=== PATIENT | female | born 1960 | race Caucasian/White ===

== ENCOUNTER → 2017-01-15 | Outpatient (CLI) | payer MEDICARE, MEDICAID ==
[~2017-01-15] VITALS: Ht 162.6 cm; Wt 96.6 kg
[~2017-01-15] MED LIST: BARIATRIC MULTI PO; BRIN1TAB2 PO; CALC600T57 PO; FURO40TA2 PO; K-TA10TA2 PO; NS 1,000 ML IV SCH; PANT40TA2 PO; PERCOCET PO; PRIS100T PO; PROPOFOL 200 MG/20 ML VIAL As Ordered ONE; ROPI1TAB PO; ROSU10TA PO; TRAM50TA2 PO
--- NOTE | 2017-01-15 10:55 | ROOR ---
Patient Name: Susy Fernandes Procedure Date: 01/15/2017 10:37 AM Date of : 1960 Age: 56 Room: [facility] Gender: Female Note Status: Finalized Procedure: Colonoscopy to Anastomosis Indications: High risk colon cancer surveillance: Personal history of colon cancer Providers: Claudio Armendariz MD Referring MD: [facility] Requesting Provider: Medicines: Monitored Anesthesia Care Complications: No immediate complications. Procedure: Pre-Anesthesia Assessment: - The heart rate, respiratory rate, oxygen saturations, blood pressure, adequacy of pulmonary ventilation, and response to care were monitored throughout the procedure. The Colonoscope was introduced through the anus and advanced to the cecum, identified by appendiceal orifice and ileocecal valve. The colonoscopy was performed without difficulty. The patient tolerated the procedure well. The quality of the bowel preparation was excellent. Findings: The perianal and digital rectal examinations were normal. Non-bleeding internal hemorrhoids were found during retroflexion. The hemorrhoids were moderate and Grade II (internal hemorrhoids that prolapse but reduce spontaneously). There was evidence of a prior end-to-side colo-colonic anastomosis at the hepatic flexure. This was patent and was characterized by healthy appearing mucosa. The exam was otherwise without abnormality on direct and retroflexion views. Impression: - Non-bleeding internal hemorrhoids. - Patent end-to-side colo-colonic anastomosis, characterized by healthy appearing mucosa. - The examination was otherwise normal on direct and retroflexion views. - No specimens collected. - The examination was otherwise normal. Recommendation: - Patient has a contact number available for emergencies. The signs and symptoms of potential delayed complications were discussed with the patient. Return to normal activities tomorrow. Written discharge instructions were provided to the patient. - High fiber diet. - Discharge patient to home. - Continue present medications. - Repeat colonoscopy in 2 years for surveillance. - Return to referring physician. - The findings and recommendations were discussed with the patient's family. Claudio Armendariz MD Claudio Armendariz MD 01/15/2017 10:55:02 AM This report has been signed electronically. Number of Addenda: 0 Note Initiated On: 01/15/2017 10:37 AM Estimated Blood Loss: Estimated blood loss: none.
[2017-01-15 11:30] VITALS: BP 112/68
== END | disposition home or self-care (01) ==
LOC: M OPP 09:59
PROVIDERS: ATTEND Internal Medicine Gastroenterology
DX: Z08 Encounter for follow-up examination after completed treatment for malignant neoplasm (principal); K64.1 Second degree hemorrhoids; Z85.038 Personal history of other malignant neoplasm of large intestine; K62.5 Hemorrhage of anus and rectum; Z86.010 Personal history of colon polyps; Z98.0 Intestinal bypass and anastomosis status; E78.5 Hyperlipidemia, unspecified; I10 Essential (primary) hypertension; E07.9 Disorder of thyroid, unspecified; K82.9 Disease of gallbladder, unspecified; E66.9 Obesity, unspecified; R12 Heartburn; M19.90 Unspecified osteoarthritis, unspecified site; M54.5 Low back pain; F41.9 Anxiety disorder, unspecified; F32.9 Major depressive disorder, single episode, unspecified; D64.9 Anemia, unspecified; K57.30 Diverticulosis of large intestine without perforation or abscess without bleeding; K44.9 Diaphragmatic hernia without obstruction or gangrene; Z98.84 Bariatric surgery status; Z79.899 Other long term (current) drug therapy; Z80.0 Family history of malignant neoplasm of digestive organs

== ENCOUNTER → 2017-02-05 | Outpatient (CLI) | payer MEDICARE, MEDICAID ==
[~2017-02-05] MED LIST changes: +CRES10TA32 PO; -NS 1,000 ML IV SCH; -PROPOFOL 200 MG/20 ML VIAL As Ordered ONE; -ROSU10TA PO
[2017-02-05 10:34] LABS: BASO % 0.8 % (0.0-1.0); EOS # 0.1 K/mm3 (0.0-0.50); EOS % 1.4 % (0.0-3.0); LARGE UNSTAINED CELL # 0.1 K/mm3 (0.0-0.4); LARGE UNSTAINED CELL % 1.7 % (0.0-4.0); LYMPH # 2.1 K/mm3 (1.5-4.5); LYMPH % 30.7 % (24.0-44.0); MEAN CORPUSCULAR HEMOGLOBIN 26.9 pg (27.0-33.0); MEAN CORPUSCULAR HGB CONC 32.3 g/dl (32.0-36.5); MEAN CORPUSCULAR VOLUME 83.3 fl (80.0-96.0); MONO # 0.3 K/mm3 (0.0-0.8); MONO % 4.7 % (0.0-5.0); NEUTROPHILS # 4.1 K/mm3 (1.8-7.7); NEUTROPHILS % 60.7 % (36.0-66.0); PLATELET COUNT, AUTOMATED 261 k/mm3 (150-450); RED CELL DISTRIBUTION WIDTH 13.7 % (11.5-14.5); WHITE BLOOD COUNT 6.8 K/mm3 (4.0-10.0)
[2017-02-05 11:09] LABS: ALBUMIN/GLOBULIN RATIO 1.25 (1.00-1.93); ALKALINE PHOSPHATASE 144 U/L (45-117); ALT/SGPT 26 U/L (12-78); ANION GAP 7 MEQ/L (8-16); AST/SGOT 16 U/L (15-37); BILIRUBIN,TOTAL 0.4 MG/DL (0.2-1.0); BLOOD UREA NITROGEN 20 MG/DL (7-18); CALCIUM LEVEL 9.3 MG/DL (8.5-10.1); CARBON DIOXIDE LEVEL 29 MEQ/L (21-32); CHLORIDE LEVEL 106 MEQ/L (98-107); CREATININE FOR GFR 0.63 MG/DL (0.55-1.02); FERRITIN 19 NG/ML (8-252); GLOMERULAR FILTRATION RATE > 60.0 (>51); GLUCOSE, FASTING 112 MG/DL (70-105); POTASSIUM SERUM 3.8 MEQ/L (3.5-5.1); SODIUM LEVEL 142 MEQ/L (136-145); TOTAL PROTEIN 7.2 GM/DL (6.4-8.2)
[2017-02-05 11:14] LABS: VITAMIN B12 LEVEL 427 PG/ML
[2017-02-05 11:47] LABS: FOLATE 16.2 NG/ML
[2017-02-05 11:53] LABS: ERYTHROCYTE SEDIMENTATION RATE 12 mm/hr (0-30)
[2017-02-06 10:12] LABS: ALBUMIN 4.44 GM/DL (3.29-5.55); ALBUMIN % 61.7 % (55.8-66.1); GAMMA GLOBULIN % 12.6 % (11.1-18.8)
[2017-02-08 08:06] LABS: VITAMIN E LEVEL 10.7 mg/L (5.3-16.8)
== END ==
LOC: M LAB 10:00
PROVIDERS: ATTEND Psychiatry & Neurology Neurology
DX: G25.81 Restless legs syndrome (principal); G62.9 Polyneuropathy, unspecified; E07.9 Disorder of thyroid, unspecified; R73.01 Impaired fasting glucose; D64.9 Anemia, unspecified

== ENCOUNTER 2017-04-08 07:04 | Outpatient (RCR) | payer MEDICAID, MEDICARE | END 2017-04-09 | LOC: M PT 07:04 | PROVIDERS: ATTEND Psychiatry & Neurology Neurology | DX: Z51.89 Encounter for other specified aftercare (principal); M54.5 Low back pain | CPT/HCPCS: 97162; G8978; G8979 ==

== ENCOUNTER → 2017-04-10 | Outpatient (CLI) | payer MEDICARE ==
[2017-04-10 08:26] LABS: MEAN CORPUSCULAR HEMOGLOBIN 28.3 pg (27.0-33.0); MEAN CORPUSCULAR HGB CONC 33.3 g/dl (32.0-36.5); RED CELL DISTRIBUTION WIDTH 14.1 % (11.5-14.5); WHITE BLOOD COUNT 6.3 K/mm3 (4.0-10.0)
[2017-04-10 08:44] LABS: ALBUMIN/GLOBULIN RATIO 1.38 (1.00-1.93); ALKALINE PHOSPHATASE 161 U/L (45-117); ALT/SGPT 25 U/L (12-78); ANION GAP 8 MEQ/L (8-16); AST/SGOT 14 U/L (15-37); BILIRUBIN,TOTAL 0.5 MG/DL (0.2-1.0); BLOOD UREA NITROGEN 16 MG/DL (7-18); CALCIUM LEVEL 8.6 MG/DL (8.5-10.1); CARBON DIOXIDE LEVEL 28 MEQ/L (21-32); CHLORIDE LEVEL 107 MEQ/L (98-107); CHOLESTEROL LEVEL 181 MG/DL (<200); CREATININE FOR GFR 0.63 MG/DL (0.55-1.02); GLOMERULAR FILTRATION RATE > 60.0 (>51); GLUCOSE, FASTING 102 MG/DL (70-105); POTASSIUM SERUM 3.9 MEQ/L (3.5-5.1); SODIUM LEVEL 143 MEQ/L (136-145); TOTAL PROTEIN 6.9 GM/DL (6.4-8.2); TRIGLYCERIDES LEVEL 135 MG/DL (<150)
[2017-04-10 11:25] LABS: VITAMIN B12 LEVEL 737 PG/ML (247-911)
== END ==
LOC: M LAB 07:50
PROVIDERS: ATTEND Nurse Practitioner Family
DX: I10 Essential (primary) hypertension (principal); E78.00 Pure hypercholesterolemia, unspecified; E55.9 Vitamin D deficiency, unspecified; E53.8 Deficiency of other specified B group vitamins

== ENCOUNTER 2017-05-08 07:00 | Outpatient (RCR) | payer MEDICARE, MEDICAID | END 2017-05-09 | LOC: M PT 07:00 | PROVIDERS: ATTEND Psychiatry & Neurology Neurology | DX: Z51.89 Encounter for other specified aftercare (principal); M54.2 Cervicalgia; M25.552 Pain in left hip | CPT/HCPCS: 97110; 97140; G0283; G8978; G8979 ==

== ENCOUNTER 2017-05-27 07:45 | Outpatient (RCR) | payer MEDICARE, MEDICAID | END 2017-06-09 | LOC: M PT 07:45 | PROVIDERS: ATTEND Psychiatry & Neurology Neurology | DX: M54.5 Low back pain (principal); M25.552 Pain in left hip | CPT/HCPCS: 97110; 97140; G8979; G8980 ==

== ENCOUNTER → 2017-07-09 | Outpatient (CLI) | payer MEDICARE, MEDICAID ==
[2017-07-09 12:08] LABS: MEAN CORPUSCULAR HEMOGLOBIN 27.9 pg (27.0-33.0); MEAN CORPUSCULAR HGB CONC 32.9 g/dl (32.0-36.5); MEAN CORPUSCULAR VOLUME 84.9 fl (80.0-96.0); RED CELL DISTRIBUTION WIDTH 14.2 % (11.5-14.5); WHITE BLOOD COUNT 5.9 K/mm3 (4.0-10.0)
[2017-07-09 12:26] LABS: ALBUMIN 3.8 GM/DL (3.2-5.2); ALBUMIN/GLOBULIN RATIO 1.12 (1.00-1.93); ALKALINE PHOSPHATASE 146 U/L (45-117); ALT/SGPT 24 U/L (12-78); ANION GAP 9 MEQ/L (8-16); AST/SGOT 14 U/L (15-37); BILIRUBIN,TOTAL 0.4 MG/DL (0.2-1.0); BLOOD UREA NITROGEN 17 MG/DL (7-18); CALCIUM LEVEL 9.1 MG/DL (8.5-10.1); CARBON DIOXIDE LEVEL 28 MEQ/L (21-32); CHLORIDE LEVEL 110 MEQ/L (98-107); CHOLESTEROL LEVEL 289 MG/DL (<200); CREATININE FOR GFR 0.63 MG/DL (0.55-1.02); GLOMERULAR FILTRATION RATE > 60.0 (>51); GLUCOSE, FASTING 92 MG/DL (70-105); POTASSIUM SERUM 4.1 MEQ/L (3.5-5.1); SODIUM LEVEL 147 MEQ/L (136-145); TOTAL PROTEIN 7.2 GM/DL (6.4-8.2); TRIGLYCERIDES LEVEL 280 MG/DL (<150)
== END ==
LOC: M LAB 11:04
PROVIDERS: ATTEND Nurse Practitioner Family
DX: I10 Essential (primary) hypertension (principal)

== ENCOUNTER → 2017-10-08 | Outpatient (CLI) | payer MEDICARE, MEDICAID ==
[2017-10-08 08:28] LABS: MEAN CORPUSCULAR HEMOGLOBIN 27.4 pg (27.0-33.0); MEAN CORPUSCULAR HGB CONC 32.2 g/dl (32.0-36.5); MEAN CORPUSCULAR VOLUME 84.9 fl (80.0-96.0); PLATELET COUNT, AUTOMATED 271 10^3/uL (150-450); RED CELL DISTRIBUTION WIDTH 13.7 % (11.5-14.5); WHITE BLOOD COUNT 7.8 10^3/uL (4.0-10.0)
[2017-10-08 08:49] LABS: ALBUMIN 3.9 GM/DL (3.2-5.2); ALBUMIN/GLOBULIN RATIO 1.22 (1.00-1.93); ALKALINE PHOSPHATASE 141 U/L (45-117); ALT/SGPT 28 U/L (12-78); ANION GAP 7 MEQ/L (8-16); AST/SGOT 18 U/L (7-37); BILIRUBIN,TOTAL 0.4 MG/DL (0.2-1.0); BLOOD UREA NITROGEN 15 MG/DL (7-18); CALCIUM LEVEL 9.1 MG/DL (8.5-10.1); CARBON DIOXIDE LEVEL 30 MEQ/L (21-32); CHLORIDE LEVEL 108 MEQ/L (98-107); CHOLESTEROL LEVEL 179 MG/DL (<200); CREATININE FOR GFR 0.65 MG/DL (0.55-1.02); GLOMERULAR FILTRATION RATE > 60.0 (>51); GLUCOSE, FASTING 97 MG/DL (70-105); POTASSIUM SERUM 3.8 MEQ/L (3.5-5.1); SODIUM LEVEL 145 MEQ/L (136-145); TOTAL PROTEIN 7.1 GM/DL (6.4-8.2); TRIGLYCERIDES LEVEL 168 MG/DL (<150)
[2017-10-08 09:23] LABS: VITAMIN B12 LEVEL 626 PG/ML (247-911)
== END ==
LOC: M LAB 07:52
PROVIDERS: ATTEND Nurse Practitioner Family
DX: I10 Essential (primary) hypertension (principal); E78.5 Hyperlipidemia, unspecified; E53.8 Deficiency of other specified B group vitamins

== ENCOUNTER 2017-11-18 10:34 | Emergency (ER) | payer MEDICARE, MEDICAID | END 2017-11-18 12:15 | disposition home or self-care (01) | LOC: M ED 10:34 | DX: J32.9 Chronic sinusitis, unspecified (principal); K21.9 Gastro-esophageal reflux disease without esophagitis; E78.00 Pure hypercholesterolemia, unspecified; F41.9 Anxiety disorder, unspecified; F32.9 Major depressive disorder, single episode, unspecified; M19.90 Unspecified osteoarthritis, unspecified site; Z79.899 Other long term (current) drug therapy | CPT/HCPCS: 99282 ==

== ENCOUNTER → 2018-01-28 | Outpatient (CLI) | payer MEDICARE, MEDICAID ==
[2018-01-28 14:18] LABS: HEMOGLOBIN 11.8 g/dl (12.0-16.0); MEAN CORPUSCULAR HEMOGLOBIN 26.8 pg (27.0-33.0); MEAN CORPUSCULAR HGB CONC 31.9 g/dl (32.0-36.5); MEAN CORPUSCULAR VOLUME 83.9 fl (80.0-96.0); PLATELET COUNT, AUTOMATED 255 10^3/uL (150-450); RED BLOOD COUNT 4.41 10^6/uL (4.00-5.40); RED CELL DISTRIBUTION WIDTH 14.3 % (11.5-14.5); WHITE BLOOD COUNT 6.2 10^3/uL (4.0-10.0)
[2018-01-28 14:44] LABS: TOTAL 25(OH) VITAMIN D 22.5 NG/ML (30.0-100.0)
[2018-01-28 14:45] LABS: VITAMIN B12 LEVEL 1284 PG/ML (247-911)
[2018-01-28 14:55] LABS: ALBUMIN 3.9 GM/DL (3.2-5.2); ALBUMIN/GLOBULIN RATIO 1.22 (1.00-1.93); ALKALINE PHOSPHATASE 153 U/L (45-117); ALT/SGPT 27 U/L (12-78); ANION GAP 6 MEQ/L (8-16); AST/SGOT 16 U/L (7-37); BILIRUBIN,TOTAL 0.6 MG/DL (0.2-1.0); BLOOD UREA NITROGEN 14 MG/DL (7-18); CARBON DIOXIDE LEVEL 29 MEQ/L (21-32); CHLORIDE LEVEL 109 MEQ/L (98-107); CHOLESTEROL LEVEL 196 MG/DL (<200); CHOLESTEROL RISK RATIO 3.322 (<5); CPK CREATINE PHOSPHOKINASE 112 U/L (26-192); CREATININE FOR GFR 0.61 MG/DL (0.55-1.30); FREE T4 0.83 NG/DL (0.76-1.46); GLOMERULAR FILTRATION RATE > 60.0 (>51); GLUCOSE, FASTING 97 MG/DL (70-100); HDL CHOLESTEROL 59 MG/DL (>40); NON-HDL-C 137 MG/DL; SODIUM LEVEL 144 MEQ/L (136-145); THYROID STIMULATING HORMONE 0.789 uIU/ML (0.358-3.740); TOTAL PROTEIN 7.1 GM/DL (6.4-8.2); TRIGLYCERIDES LEVEL 260 MG/DL (<150)
== END ==
LOC: M LAB 13:38
DX: I10 Essential (primary) hypertension (principal); E78.00 Pure hypercholesterolemia, unspecified; R53.83 Other fatigue
CPT/HCPCS: 82550

== ENCOUNTER → 2018-03-15 | Outpatient (REF) | payer MEDICARE, MEDICAID | LOC: M LAB REF 03-16 17:11 | DX: Z12.10 Encounter for screening for malignant neoplasm of intestinal tract, unspecified (principal) | CPT/HCPCS: 82270 ==

== ENCOUNTER → 2018-04-02 | Outpatient (CLI) | payer MEDICARE, MEDICAID | LOC: M PAIN 15:00 | DX: M54.5 Low back pain (principal); G89.29 Other chronic pain; I10 Essential (primary) hypertension; G25.81 Restless legs syndrome; F32.9 Major depressive disorder, single episode, unspecified; F41.9 Anxiety disorder, unspecified; G47.33 Obstructive sleep apnea (adult) (pediatric); Z79.899 Other long term (current) drug therapy; E66.01 Morbid (severe) obesity due to excess calories; Z68.38 Body mass index [BMI] 38.0-38.9, adult; Z98.84 Bariatric surgery status | CPT/HCPCS: G0463 ==

== ENCOUNTER → 2018-04-15 | Outpatient (CLI) | payer MEDICARE, MEDICAID ==
[2018-04-15 13:00] LABS: HEMATOCRIT 36.1 % (36.0-47.0); HEMOGLOBIN 11.3 g/dl (12.0-15.5); MEAN CORPUSCULAR HEMOGLOBIN 26.5 pg (27.0-33.0); MEAN CORPUSCULAR HGB CONC 31.3 g/dl (32.0-36.5); MEAN CORPUSCULAR VOLUME 84.7 fl (80.0-96.0); PLATELET COUNT, AUTOMATED 256 10^3/uL (150-450); RED BLOOD COUNT 4.26 10^6/uL (4.00-5.40); RED CELL DISTRIBUTION WIDTH 14.3 % (11.5-14.5); WHITE BLOOD COUNT 5.7 10^3/uL (4.0-10.0)
[2018-04-15 13:45] LABS: TOTAL 25(OH) VITAMIN D 25.9 NG/ML (30.0-100.0)
[2018-04-15 13:48] LABS: ALBUMIN 3.9 GM/DL (3.2-5.2); ALBUMIN/GLOBULIN RATIO 1.22 (1.00-1.93); ALKALINE PHOSPHATASE 128 U/L (45-117); ALT/SGPT 26 U/L (12-78); ANION GAP 7 MEQ/L (8-16); AST/SGOT 19 U/L (7-37); BILIRUBIN,TOTAL 0.4 MG/DL (0.2-1.0); BLOOD UREA NITROGEN 16 MG/DL (7-18); CALCIUM LEVEL 8.9 MG/DL (8.5-10.1); CARBON DIOXIDE LEVEL 27 MEQ/L (21-32); CHLORIDE LEVEL 109 MEQ/L (98-107); CHOLESTEROL LEVEL 163 MG/DL (<200); CHOLESTEROL RISK RATIO 2.469 (<5); CPK CREATINE PHOSPHOKINASE 120 U/L (26-192); CREATININE FOR GFR 0.68 MG/DL (0.55-1.30); FREE T4 0.86 NG/DL (0.76-1.46); GLOMERULAR FILTRATION RATE > 60.0 (>51); GLUCOSE, FASTING 90 MG/DL (70-100); HDL CHOLESTEROL 66 MG/DL (>40); NON-HDL-C 97 MG/DL; SODIUM LEVEL 143 MEQ/L (136-145); TOTAL PROTEIN 7.1 GM/DL (6.4-8.2); TRIGLYCERIDES LEVEL 145 MG/DL (<150)
== END ==
LOC: M LAB 11:49
DX: E78.00 Pure hypercholesterolemia, unspecified (principal); I10 Essential (primary) hypertension; E55.9 Vitamin D deficiency, unspecified; E03.9 Hypothyroidism, unspecified; R11.10 Vomiting, unspecified; Z68.38 Body mass index [BMI] 38.0-38.9, adult; R10.13 Epigastric pain; Z13.29 Encounter for screening for other suspected endocrine disorder; Z13.21 Encounter for screening for nutritional disorder; Z13.228 Encounter for screening for other metabolic disorders; Z13.0 Encounter for screening for diseases of the blood and blood-forming organs and certain disorders involving the immune mechanism
CPT/HCPCS: 82550

== ENCOUNTER → 2018-04-15 | Outpatient (CLI) | payer MEDICARE, MEDICAID ==
[2018-04-15 13:37] LABS: IRON (FE) 59 UG/DL (50-170)
[2018-04-15 13:45] LABS: VITAMIN B12 LEVEL 487 PG/ML (247-911)
== END ==
LOC: M LAB 11:56
DX: R11.10 Vomiting, unspecified (principal); Z68.38 Body mass index [BMI] 38.0-38.9, adult; R10.13 Epigastric pain; Z13.29 Encounter for screening for other suspected endocrine disorder; Z13.21 Encounter for screening for nutritional disorder; Z13.228 Encounter for screening for other metabolic disorders; Z13.0 Encounter for screening for diseases of the blood and blood-forming organs and certain disorders involving the immune mechanism

== ENCOUNTER → 2018-05-01 | Outpatient (CLI) | payer MEDICARE, MEDICAID | LOC: M PLARAD 14:41 | DX: M51.36 Other intervertebral disc degeneration, lumbar region (principal) | CPT/HCPCS: 72148 ==

== ENCOUNTER → 2018-05-18 | Outpatient (CLI) | payer MEDICARE, MEDICAID | LOC: M PAIN 14:30 | DX: M51.16 Intervertebral disc disorders with radiculopathy, lumbar region (principal); M51.17 Intervertebral disc disorders with radiculopathy, lumbosacral region; G89.29 Other chronic pain; I10 Essential (primary) hypertension; G25.81 Restless legs syndrome; F32.9 Major depressive disorder, single episode, unspecified; F41.9 Anxiety disorder, unspecified; G47.33 Obstructive sleep apnea (adult) (pediatric); Z79.899 Other long term (current) drug therapy; Z98.84 Bariatric surgery status | CPT/HCPCS: G0463 ==

== ENCOUNTER → 2018-06-04 | Outpatient (CLI) | payer MEDICARE, MEDICAID ==
[~2018-06-04] MED LIST changes: -BARIATRIC MULTI PO; -BRIN1TAB2 PO; -CALC600T57 PO; -CRES10TA32 PO; -FURO40TA2 PO; +ISOVUE-M 300 61% 15ML VIAL (Q9967) As Ordered; -K-TA10TA2 PO; +LIDOCAINE 1% SDV INJ 30 ML VIAL As Ordered; -PANT40TA2 PO; -PERCOCET PO; -PRIS100T PO; -ROPI1TAB PO; -TRAM50TA2 PO; +diazePAM 5 MG TAB As Ordered; +methylPREDNISolone SUSP 40 MG/ML (DEPO-medrol) VIAL (J1030) As Ordered; +oxyCODONE 5MG TAB As Ordered
== END ==
LOC: M PAIN 08:30
DX: G89.29 Other chronic pain (principal); M51.16 Intervertebral disc disorders with radiculopathy, lumbar region; I10 Essential (primary) hypertension; G25.81 Restless legs syndrome; F32.9 Major depressive disorder, single episode, unspecified; F41.9 Anxiety disorder, unspecified; G47.33 Obstructive sleep apnea (adult) (pediatric); Z79.899 Other long term (current) drug therapy; Z98.84 Bariatric surgery status
CPT/HCPCS: J1030

== ENCOUNTER → 2018-07-10 | Outpatient (CLI) | payer MEDICARE, MEDICAID | LOC: M PAIN 10:15 | DX: M51.16 Intervertebral disc disorders with radiculopathy, lumbar region (principal); M51.17 Intervertebral disc disorders with radiculopathy, lumbosacral region; I10 Essential (primary) hypertension; F32.9 Major depressive disorder, single episode, unspecified; F41.9 Anxiety disorder, unspecified; G47.33 Obstructive sleep apnea (adult) (pediatric); G25.81 Restless legs syndrome; Z79.891 Long term (current) use of opiate analgesic; Z79.899 Other long term (current) drug therapy; Z98.84 Bariatric surgery status | CPT/HCPCS: G0463 ==

== ENCOUNTER → 2018-07-27 | Outpatient (CLI) | payer MEDICARE, MEDICAID ==
[~2018-07-27] MED LIST changes: +BUPIVACAINE HCL 0.25% 30 ML VIAL As Ordered; +TRIAMCINOLONE ACETONIDE SUSP 40 MG/ML VIAL (J3301) As Ordered; -methylPREDNISolone SUSP 40 MG/ML (DEPO-medrol) VIAL (J1030) As Ordered
== END ==
LOC: M PAIN 10:45
DX: G89.29 Other chronic pain (principal); M47.816 Spondylosis without myelopathy or radiculopathy, lumbar region; M47.817 Spondylosis without myelopathy or radiculopathy, lumbosacral region; I10 Essential (primary) hypertension; F32.9 Major depressive disorder, single episode, unspecified; F41.9 Anxiety disorder, unspecified; G47.33 Obstructive sleep apnea (adult) (pediatric); G25.81 Restless legs syndrome; Z79.891 Long term (current) use of opiate analgesic; Z79.899 Other long term (current) drug therapy; Z98.84 Bariatric surgery status
CPT/HCPCS: J3301

== ENCOUNTER → 2018-09-02 | Outpatient (CLI) | payer MEDICARE, MEDICAID ==
[2018-09-02 14:59] LABS: HEMATOCRIT 36.8 % (36.0-47.0); HEMOGLOBIN 11.5 g/dl (12.0-15.5); MEAN CORPUSCULAR HEMOGLOBIN 26.8 pg (27.0-33.0); MEAN CORPUSCULAR HGB CONC 31.3 g/dl (32.0-36.5); MEAN CORPUSCULAR VOLUME 85.8 fl (80.0-96.0); PLATELET COUNT, AUTOMATED 275 10^3/uL (150-450); RED BLOOD COUNT 4.29 10^6/uL (4.00-5.40); RED CELL DISTRIBUTION WIDTH 14.8 % (11.5-14.5); WHITE BLOOD COUNT 6.6 10^3/uL (4.0-10.0)
[2018-09-02 15:18] LABS: ALBUMIN 3.9 GM/DL (3.2-5.2); ALBUMIN/GLOBULIN RATIO 1.44 (1.00-1.93); ALKALINE PHOSPHATASE 108 U/L (45-117); ALT/SGPT 23 U/L (12-78); ANION GAP 4 MEQ/L (8-16); AST/SGOT 17 U/L (7-37); BILIRUBIN,TOTAL 0.5 MG/DL (0.2-1.0); BLOOD UREA NITROGEN 19 MG/DL (7-18); CALCIUM LEVEL 9.3 MG/DL (8.5-10.1); CARBON DIOXIDE LEVEL 30 MEQ/L (21-32); CHLORIDE LEVEL 111 MEQ/L (98-107); CHOLESTEROL LEVEL 217 MG/DL (<200); CHOLESTEROL RISK RATIO 2.646 (<5); CPK CREATINE PHOSPHOKINASE 115 U/L (26-192); CREATININE FOR GFR 0.62 MG/DL (0.55-1.30); GLOMERULAR FILTRATION RATE > 60.0 (>51); GLUCOSE, FASTING 94 MG/DL (70-100); HDL CHOLESTEROL 82 MG/DL (>40); LDL CHOLESTEROL 110 MG/DL (<100); NON-HDL-C 135 MG/DL; POTASSIUM SERUM 4.4 MEQ/L (3.5-5.1); SODIUM LEVEL 145 MEQ/L (136-145); TOTAL PROTEIN 6.6 GM/DL (6.4-8.2); TRIGLYCERIDES LEVEL 124 MG/DL (<150)
[2018-09-02 15:41] LABS: TOTAL 25(OH) VITAMIN D 38.7 NG/ML (30.0-100.0)
== END ==
LOC: M LAB 14:04
DX: E78.00 Pure hypercholesterolemia, unspecified (principal); I10 Essential (primary) hypertension; E55.9 Vitamin D deficiency, unspecified; D51.0 Vitamin B12 deficiency anemia due to intrinsic factor deficiency; Z79.899 Other long term (current) drug therapy
CPT/HCPCS: 82550

== ENCOUNTER → 2018-09-18 | Outpatient (CLI) | payer MEDICARE, MEDICAID ==
[2018-09-22 09:58] LABS: ALPHA-1-GLOBULIN % 3.6 % (2.9-4.9); ALPHA-1-GLOBULINS 0.25 GM/DL (0.17-0.41); ALPHA-2-GLOBULINS 0.78 GM/DL (0.42-0.99); ALPHA-2-GLOBULINS % 11.2 % (7.1-11.8); BETA-1-GLOBULINS % 7.1 % (4.7-7.2); BETA-2-GLOBULINS % 5.7 % (3.2-6.5); GAMMA GLOBULIN % 12.4 % (11.1-18.8); GAMMA GLOBULINS 0.87 GM/DL (0.65-1.58)
== END ==
LOC: M LAB 11:19
DX: D64.9 Anemia, unspecified (principal); R53.83 Other fatigue; F41.8 Other specified anxiety disorders
CPT/HCPCS: 84165

== ENCOUNTER 2018-09-30 15:22 | Emergency (ER) | payer OTHER, MEDICARE, MEDICAID ==
[2018-09-30] MEDS: IBUPROFEN 400 MG TAB PO (16:16)
[2018-09-30] MEDS: NORCO, ANEXSIA 5/325MG TABLET (HYDROcodone/ACETAMINOPHEN) PO (16:20)
[2018-09-30 16:24] LABS: HEMATOCRIT 36.5 % (36.0-47.0); HEMOGLOBIN 11.4 g/dl (12.0-15.5); MEAN CORPUSCULAR HEMOGLOBIN 26.4 pg (27.0-33.0); MEAN CORPUSCULAR HGB CONC 31.2 g/dl (32.0-36.5); MEAN CORPUSCULAR VOLUME 84.5 fl (80.0-96.0); PLATELET COUNT, AUTOMATED 287 10^3/uL (150-450); RED BLOOD COUNT 4.32 10^6/uL (4.00-5.40); WHITE BLOOD COUNT 8.9 10^3/uL (4.0-10.0)
[2018-09-30 16:33] LABS: INR 0.92; PROTHROMBIN TIME 12.5 SECONDS (12.1-14.4)
== END 2018-09-30 17:06 | disposition home or self-care (01) ==
LOC: M ED 15:22
DX: S30.0XXA Contusion of lower back and pelvis, initial encounter (principal); W01.0XXA Fall on same level from slipping, tripping and stumbling without subsequent striking against object, initial encounter; Y92.9 Unspecified place or not applicable; Y93.9 Activity, unspecified; Y99.0 Civilian activity done for income or pay; K64.9 Unspecified hemorrhoids; Z98.84 Bariatric surgery status; Z79.899 Other long term (current) drug therapy
CPT/HCPCS: 72170

== ENCOUNTER → 2018-10-15 | Outpatient (CLI) | payer MEDICARE, MEDICAID | LOC: M PAIN 11:15 | DX: M51.16 Intervertebral disc disorders with radiculopathy, lumbar region (principal); I10 Essential (primary) hypertension; G25.81 Restless legs syndrome; F32.9 Major depressive disorder, single episode, unspecified; F41.9 Anxiety disorder, unspecified; G47.33 Obstructive sleep apnea (adult) (pediatric); E66.01 Morbid (severe) obesity due to excess calories; Z68.39 Body mass index [BMI] 39.0-39.9, adult; Z79.899 Other long term (current) drug therapy; Z98.84 Bariatric surgery status | CPT/HCPCS: G0463 ==

== ENCOUNTER 2018-10-28 10:46 | Day surgery (SDC) | payer MEDICARE, MEDICAID ==
[~2018-10-28] VITALS: Ht 162.6 cm; Wt 101.8 kg
[~2018-10-28 10:46] MED LIST changes: +AUGM875T28 PO; +BARIATRIC MULTI PO; +BRIN10TA4 PO; -BUPIVACAINE HCL 0.25% 30 ML VIAL As Ordered; +BUSP10TA PO; +BUSP5TA PO; +CALC600T57 PO; +CELE20TA PO; +CRES10TA32 PO; +FURO40TA2 PO; +GABA-1171 PO; +GABA-843 PO; +IBUP-1022 PO; +IBUP1TAB7 PO; -ISOVUE-M 300 61% 15ML VIAL (Q9967) As Ordered; +K-TA10TA2 PO; -LIDOCAINE 1% SDV INJ 30 ML VIAL As Ordered; +LIDOCAINE 2% INJ 100 MG/5 ML SDV (FOR ANES.) As Ordered ONE; +PANT40TA3 PO; +PERCOCET PO; +PRIS100T PO; +PROC2.5C TOP; +PROPOFOL 200 MG/20 ML VIAL As Ordered ONE; +ROPI1TAB PO; +TRAM50TA2 PO; -TRIAMCINOLONE ACETONIDE SUSP 40 MG/ML VIAL (J3301) As Ordered; +VITA200016 PO; -diazePAM 5 MG TAB As Ordered; -oxyCODONE 5MG TAB As Ordered
[2018-10-28] MEDS ORDERED: NS 1,000 ML IV ONE (11:00)
[2018-10-28] MEDS ORDERED: PROPOFOL 200 MG/20 ML VIAL As Ordered ONE (12:18)
--- NOTE | 2018-10-28 12:27 | ROOR ---
Patient Name: Susy Fernandes Procedure Date: 10/28/2018 12:03 PM Date of : 1960 Age: 58 Room: [facility] Gender: Female Note Status: Finalized Procedure: Colonoscopy to Anastomosis Indications: High risk colon cancer surveillance: Personal history of colon cancer, Last colonoscopy: 2016 Providers: Claudio Armendariz MD Referring MD: KAITLIN ATKINS NP Requesting Provider: Medicines: Monitored Anesthesia Care Complications: No immediate complications. Procedure: Pre-Anesthesia Assessment: - The heart rate, respiratory rate, oxygen saturations, blood pressure, adequacy of pulmonary ventilation, and response to care were monitored throughout the procedure. The Colonoscope was introduced through the anus and advanced to the ileocolonic anastomosis. The colonoscopy was performed without difficulty. The patient tolerated the procedure well. The quality of the bowel preparation was excellent. Findings: The perianal and digital rectal examinations were normal. Non-bleeding internal hemorrhoids were found during retroflexion. The hemorrhoids were small and Grade I (internal hemorrhoids that do not prolapse). Multiple small and large-mouthed diverticula were found in the recto-sigmoid colon, sigmoid colon and descending colon. There was evidence of a prior end-to-side ileo-colonic anastomosis at the hepatic flexure. This was patent and was characterized by healthy appearing mucosa. The anastomosis was traversed. The exam was otherwise without abnormality. Impression: - Non-bleeding internal hemorrhoids. - Diverticulosis in the recto-sigmoid colon, in the sigmoid colon and in the descending colon. - Patent end-to-side ileo-colonic anastomosis, characterized by healthy appearing mucosa. - The examination was otherwise normal. - No specimens collected. - The examination was otherwise normal. Recommendation: - Discharge patient to home. - Resume previous diet. - Continue present medications. - Repeat colonoscopy in 2 years for surveillance. - Return to referring physician. - The findings and recommendations were discussed with the patient's family. Claudio Armendariz MD Claudio Armendariz MD 10/28/2018 12:27:19 PM This report has been signed electronically. Number of Addenda: 0 Note Initiated On: 10/28/2018 12:03 PM Estimated Blood Loss: Estimated blood loss: none.
[2018-10-28 12:55] VITALS: BP 150/80
== END 2018-10-28 13:13 | disposition home or self-care (01) ==
LOC: M OPP 10:46
PROVIDERS: ATTEND Internal Medicine Gastroenterology
DX: Z08 Encounter for follow-up examination after completed treatment for malignant neoplasm (principal); Z85.038 Personal history of other malignant neoplasm of large intestine; Z86.010 Personal history of colon polyps; K64.0 First degree hemorrhoids; K57.90 Diverticulosis of intestine, part unspecified, without perforation or abscess without bleeding; Z98.0 Intestinal bypass and anastomosis status; E78.5 Hyperlipidemia, unspecified; E03.9 Hypothyroidism, unspecified; K21.9 Gastro-esophageal reflux disease without esophagitis; R12 Heartburn; M19.90 Unspecified osteoarthritis, unspecified site; M54.5 Low back pain; F41.9 Anxiety disorder, unspecified; F32.9 Major depressive disorder, single episode, unspecified; K62.5 Hemorrhage of anus and rectum; G47.8 Other sleep disorders; R06.83 Snoring; G47.30 Sleep apnea, unspecified; E66.9 Obesity, unspecified; Z98.84 Bariatric surgery status; Z79.899 Other long term (current) drug therapy; Z80.0 Family history of malignant neoplasm of digestive organs

== ENCOUNTER → 2018-12-02 | Outpatient (CLI) | payer MEDICARE, MEDICAID ==
[~2018-12-02] MED LIST changes: -LIDOCAINE 2% INJ 100 MG/5 ML SDV (FOR ANES.) As Ordered ONE; -PROPOFOL 200 MG/20 ML VIAL As Ordered ONE
[2018-12-02 09:01] LABS: HEMATOCRIT 37.8 % (36.0-47.0); HEMOGLOBIN 11.8 g/dl (12.0-15.5); MEAN CORPUSCULAR HEMOGLOBIN 26.9 pg (27.0-33.0); MEAN CORPUSCULAR HGB CONC 31.2 g/dl (32.0-36.5); MEAN CORPUSCULAR VOLUME 86.3 fl (80.0-96.0); PLATELET COUNT, AUTOMATED 234 10^3/uL (150-450); RED BLOOD COUNT 4.38 10^6/uL (4.00-5.40); WHITE BLOOD COUNT 7.1 10^3/uL (4.0-10.0)
[2018-12-02 09:53] LABS: ALT/SGPT 36 U/L (12-78); BILIRUBIN,TOTAL 0.4 MG/DL (0.2-1.0); BLOOD UREA NITROGEN 15 MG/DL (7-18); CALCIUM LEVEL 8.9 MG/DL (8.5-10.1); CARBON DIOXIDE LEVEL 27 MEQ/L (21-32); CHLORIDE LEVEL 110 MEQ/L (98-107); CHOLESTEROL LEVEL 193 MG/DL (<200); CPK CREATINE PHOSPHOKINASE 81 U/L (26-192); CREATININE FOR GFR 0.65 MG/DL (0.55-1.30); FREE T4 0.85 NG/DL (0.76-1.46); GLOMERULAR FILTRATION RATE > 60.0 (>51); GLUCOSE, FASTING 92 MG/DL (70-100); HDL CHOLESTEROL 72 MG/DL (>40); LDL CHOLESTEROL 80 MG/DL (<100); NON-HDL-C 121 MG/DL; POTASSIUM SERUM 4.1 MEQ/L (3.5-5.1); SODIUM LEVEL 143 MEQ/L (136-145); TOTAL PROTEIN 6.8 GM/DL (6.4-8.2); TRIGLYCERIDES LEVEL 207 MG/DL (<150)
== END ==
LOC: M LAB 08:21
PROVIDERS: ATTEND Nurse Practitioner Family
DX: E55.9 Vitamin D deficiency, unspecified (principal); I10 Essential (primary) hypertension; E78.5 Hyperlipidemia, unspecified; E03.9 Hypothyroidism, unspecified; Z79.899 Other long term (current) drug therapy

== ENCOUNTER → 2019-01-04 | Outpatient (CLI) | payer MEDICARE, MEDICAID ==
--- NOTE | 2019-01-18 00:33 | ECWPNPC ---
PATIENT NAME: CHRISTAL HARRIS : 1960 GENDER: FEMALE VISIT DATE: 01/04/2019 DISCHARGE DATE: 01/04/19 1237 VISIT LOCKED DATE TIME: PHYSICIAN: ANDREIA WALDROP RESOURCE: ANDREIA WALDROP REASON FOR APPOINTMENT 1. LOW BACK LEG/DISCUSS PROCEDURE HISTORY OF PRESENT ILLNESS HISTORY OF PRESENT ILLNESS: HERE FOR F/U OF CHRONIC LOW BACK PAIN.RATING PAIN VAS 6/10.DESCRIBES PAIN CONTINUOUS,BURNING AND STABBING.SHE IS LEARY ABOUT MOVING FORWARD WITH RADIOFREQUENCY. PAIN THE PATIENT DESCRIBES THE PAIN... FALL RISK SCREENING: SCREENING : NO FALLS IN THE PAST YEAR. CURRENT MEDICATIONS TAKING CRESTOR 10 MG TABLET 1 TABLET ORALLY ONCE A DAY TAKING PANTOPRAZOLE SODIUM 40 MG TABLET DELAYED RELEASE 1 TABLET ORALLY ONCE A DAY TAKING FUROSEMIDE 40 MG TABLET 1 TABLET ORALLY ONCE A DAY TAKING ROPINIROLE HCL 1 MG TABLET 1 1/2 TABS ORALLY BID TAKING IBUPROFEN 800 MG TABLET 1 TABLET WITH FOOD OR MILK NEEDED ORALLY BID PRN TAKING BUSPIRONE HCL 5 MG TABLET 1 TABLET ORALLY THREE TIMES A DAY TAKING GABAPENTIN 100 MG CAPSULE 1 CAPSULE ORALLY BID TAKING GABAPENTIN 300 MG TABLET 1 CAPSULE ORALLY FOR PAIN THREE TIMES A DAY TAKING VIIBRYD 40 MG TABLET 1 CAP ORALLY DAILY NOT-TAKING MULTIVITAMINS CAPSULE 2 GUMMIES ORALLY DAILY NOT-TAKING VITAMIN D (ERGOCALCIFEROL) 59789 UNIT CAPSULE 1 CAPSULE ORALLY NOT-TAKING TRAMADOL HCL 50 MG TABLET 1 TABLET ORALLY BEFORE BEDTIME PRN NOT-TAKING FENOFIBRATE MICRONIZED 200 MG CAPSULE 1 CAPSULE WITH A MEAL ORALLY ONCE A DAY DISCONTINUED CELEXA 20 MG TABLET 1 5 TABLET ORALLY ONCE A DAY MEDICATION LIST REVIEWED AND RECONCILED WITH THE PATIENT PAST MEDICAL HISTORY HTN ANEMIA OBESITY S/P GASTRIC BYPASS HISTORY OF FLUID RETENTION BLADDER MESH DEGENERATIVE DISC DISEASE RESTLESS LEG SYNDROME DEPRESSION ANXIETY LOW BACK AND LEFT HIP PAIN RADIATING DOWN LEFT LEG TO FOOT KING CYST BILATERAL LAURITA BILATERAL CARPAL TUNNEL BILATERAL LEG WEAKNESS AND PARESTHESIAS AROUND THE KNEE ALLERGIES N.K.D.A. SURGICAL HISTORY GASTRIC BYPASS 04/27/2008 BREAST REDUCTION 07/05/15 ROTATOR CUFF LEFT 2014 BLADDER REPAIR 1991,05/2003 HEMMORIOD REMOVAL 2015 HYSTERECTOMY 02/1995 GALLBLADDER REMOVED 02/1995 TONSILS REMOVED 1981 JACKELIN REMOVED FROM LEFT SIDE OF FACE 1970 COLON RESECTION FOR COLON CA 2016 FAMILY HISTORY FATHER: , DEPRESSION ,CHF, DIAGNOSED WITH DIABETES, HYPERTENSION, CANCER, OTHER MOTHER: , RETUM CANCER, DIAGNOSED WITH CANCER SIBLINGS: ALIVE, HYPERLIPIDEMIA,HTN,ASTHMA,DEPRESSION 2 SISTER(S) . 2DAUGHTER(S) - HEALTHY. DAD-SKIN CA, HIGH CHOLESTEROL, ? ASTHMAMOM-RECTAL CASISTER-ASHTMA, DISABLED DUE TO SPINAL CORD INJURY. SOCIAL HISTORY GENERAL: TOBACCO USE ARE YOU A:NONSMOKER ALCOHOL SCREENING DID YOU HAVE A DRINK CONTAINING ALCOHOL IN THE PAST YEAR?NO POINTS0 INTERPRETATIONNEGATIVE RECREATIONAL DRUG USE DRUG USE?NO CAFFEINE CAFFEINE USE?YES 4 CUPS OF COFFEE A DAY SEXUAL HX HAD SEX IN THE LAST 12 MONTHS (VAGINAL, ORAL, OR ANAL)?NO HAVE YOU EVER HAD AN STD?NO MORMON [id number] PENTECOSTAL LANGUAGE DANISH. EDUCATION LEVEL OF EDUCATION:FINISHED [employer] DEGREE LEARNING BARRIERS / SPECIAL NEEDS BARRIERS TO LEARNING?NO HEARING IMPAIRED?NO VISION IMPAIRED?YES :CORRECTIVE LENSES READING GLASSES COGNITIVELY IMPAIRED?NO READINESS TO LEARN?YES LEARNING PREFERENCES?YES :DEMONSTRATION/VERBAL INSTRUCTION LEARNING CAPABILITIES PRESENT?YES EMOTIONAL BARRIERS?NO SPECIAL DEVICES?NO INDUSTRIAL MACHINE OPERATOR NEEDED?NO DOMESTIC VIOLENCE NONE. DIET: REGULAR. EXERCISE: WALKS. MARITAL STATUS: .. OTHERS AT HOME: BOYFRIEND. NEW PATIENT PAIN DIARY PATIENT DESCRIBES PAIN :BURNING, HAVE IT ALL THE TIME FROM 0-10, WHAT LEVEL IS YOUR PAIN TODAY?8 PRECIPITATING FACTORS SITTING OR STANDING TOO LONG. WORSE AT NIGHT ALLEVIATING FACTORS SOAKING IN A BATH TUB IMPACT ON FUNCTION CAN'T DO MUCH OF ANYTHING PAIN CLINIC PFS, CLERGY, PUBLIC HEALTH REFERRALS PFS REFERRAL NEEDED?NO CLERGY REFERRAL NEEDED?NO PUBLIC HEALTH REFERRAL NEEDED?NO HAS THE PATIENT BEEN EDUCATED REGARDING HIS/HER PLAN OF CARE?YES HAS THE PATIENT BEEN EDUCATED REGARDING PAIN, THE RISK FOR PAIN, THE IMPORTANCE OF EFFECTIVE PAIN MANAGEMENT, AND THE PAIN ASSESSMENT PROCESS?YES ADVANCE DIRECTIVE ADVANCE DIRECTIVE DISCUSSED WITH PATIENT:YES PT. DECLINES INFORMATION HOSPITALIZATION/MAJOR DIAGNOSTIC PROCEDURE SURGERY RELATED REVIEW OF SYSTEMS REVIEWED BY: PROVIDER: ANDREIA GONZALES . CONSTITUTIONAL: ANY CHANGE IN YOUR MEDICAL CONDITION? NO . CHILLS NO . FEVER NO . INFECTION: DO YOU HAVE NEW INFECTIONS? NO . DO YOU HAVE HISTORY OF MRSA? NO . MUSCULOSKELETAL: ANY NEW PATTERNS OF PAIN OR NUMBNESS? YES, 3 WEEKS AGO PAIN STARTED IN LOWER BACK RADIATING TO BUTTOCKS . GASTROENTEROLOGY: ANY NEW CHANGE IN BOWEL CONTROL? NO . GENITOURINARY: ANY NEW CHANGE IN BLADDER CONTROL? NO . IS THERE A CHANCE YOU COULD BE ? NO . HEMATOLOGY/LYMPH: DO YOU TAKE ANY BLOOD THINNERS? (FOR EXAMPLE- COUMADIN, PLAVIX, AGGRENOX, PLATEL, PRADAXA, OR XARELTO) NO . WHEN WAS YOUR LAST DOSE? DATE: TIME: . NEUROLOGY: HAVE YOU FALLEN IN THE PAST 12 MONTHS? YES, FELL LAST MONTH CANT REMEMBER WHY SHE FELL. PT DENIES INJURIES . ANY NEW EXTREMITY NUMBNESS OR WEAKNESS? NO . CARDIOLOGY: DO YOU HAVE A PACEMAKER OR DEFIBRILLATOR? NO . RESPIRATORY: HAVE YOU BEEN SICK IN THE PAST WEEK? NO . FEVER NO . FLU LIKE SYMPTOMS? NO . COUGH NO . INTEGUMENTARY: DO YOU HAVE ANY RASHES OR OPEN SORES? NO . ALLERGIC/IMMUNO: ARE YOU ALLERGIC TO IV DYE? NO . ANY NEW ALLERGIES? NO . PSYCHIATRIC: DO YOU HAVE THOUGHTS OF HURTING YOURSELF OR SOMEONE ELSE? NO . ARE YOU ABUSED, NEGLECTED, OR IN AN UNSAFE ENVIRONMENT? NO . ENDOCRINOLOGY: ARE YOU DIABETIC? NO . OTHER: DO YOU NEED ANY PRESCRIPTIONS? NO . IF YES, PLEASE LIST: ____ . ANY NEW PROBLEMS WITH YOUR MEDICATIONS? NO . WHEN DID YOU LAST EAT? ____ . WHEN DID YOU LAST DRINK? ____ . WHAT DID YOU LAST DRINK? ____ . NAME OF PERSON DRIVING YOU HOME? ____ . DO YOU HAVE ANY OTHER QUESTIONS OR CONCERNS NO . VITAL SIGNS WT 234.2 LBS, HT 64 IN, BMI 40.20 INDEX, BP 141/73 MM HG, HR 70 /MIN, RR 16 /MIN, TEMP 98.3 F, OXYGEN SAT % 95%, NA INITIALS SC 12:03, REVIEWED BY: EM. EXAMINATION GENERAL EXAMINATION: GENERAL APPEARANCE:ALERT . PSYCHAFFECT NORMAL . LUNGS:LUNG SOUNDS ARE CLEAR . HEART:HEART RATE REGULAR . MUSCULOSKELETAL:MST TESTING IS SLIGHTLY WEAK OVER LEFT LEG COMPARED WITH RIGHT. . LUMBAR SACRAL SPINETENDER OVER LUMBAR FACETS L>R SPECIFIC LEFT SIJ PAIN NOTED WITH PALPATION. . NEUROLOGIC EXAM:NORMAL SENSATION TO LIGHT TOUCH BILAT. LOWER EXTREMITIES . DIAGNOSTIC TESTS REVIEWEDMRI L/S SPINE-05/01/18. ASSESSMENTS INTERVERTEBRAL DISC DISORDER WITH RADICULOPATHY OF LUMBAR REGION - M51.16 (PRIMARY) TREATMENT INTERVERTEBRAL DISC DISORDER WITH RADICULOPATHY OF LUMBAR REGION NOTES: BILAT. L4/5-L5/S1 THERAPEUTIC FACET BLOCK. PREVENTIVE MEDICINE PAIN CLINIC TEACHING: PROCEDURE TEACHING REVIEWED PROCEDURE INFORMATION WITH PATIENT. ALSO REVIEWED PRE-PROCEDURE INSTRUCTIONS. PATIENT VERBALIZED AN UNDERSTANDING. YANNA YANES 01/04/2019 12:36:12 PM > . PROCEDURE CODES FA211 ESTABILISHED PATIENT [facility] CHARGE DISPOSITION & COMMUNICATION FOLLOW UP POST (REASON: BILAT. L4/5-L5/S1 THERAPEUTIC FACET BLOCK) ELECTRONICALLY SIGNED BY JANET OWENS ON 01/17/2019 AT 11:07 AM EDT DISCLAIMER : THIS IS A VISIT SUMMARY EXTRACTED FROM THE [employer] CHART. IT IS NOT A COPY OF THE [employer] PROGRESS NOTE. AYUSH
== END ==
LOC: M PAIN 11:15
PROVIDERS: ATTEND Nurse Practitioner Family
DX: M51.16 Intervertebral disc disorders with radiculopathy, lumbar region (principal); G89.29 Other chronic pain; I10 Essential (primary) hypertension; G25.81 Restless legs syndrome; F32.9 Major depressive disorder, single episode, unspecified; F41.9 Anxiety disorder, unspecified; G47.33 Obstructive sleep apnea (adult) (pediatric); E66.01 Morbid (severe) obesity due to excess calories; Z68.41 Body mass index [BMI] 40.0-44.9, adult; Z79.899 Other long term (current) drug therapy; Z98.84 Bariatric surgery status

== ENCOUNTER → 2019-01-13 | Outpatient (CLI) | payer MEDICARE, MEDICAID ==
[~2019-01-13] MED LIST changes: +BUPIVACAINE HCL 0.25% 30 ML VIAL As Ordered ONE; +ISOVUE-M 300 61% 15ML VIAL (Q9967) As Ordered ONE; +LIDOCAINE 1% SDV INJ 30 ML VIAL As Ordered ONE; +TRIAMCINOLONE ACETONIDE SUSP 40 MG/ML VIAL (J3301) As Ordered ONE; +diazePAM 5 MG TAB As Ordered ONE; +oxyCODONE 5MG TAB As Ordered ONE
--- NOTE | 2019-01-13 14:58 | REP ---
Partial lumbar spine series: Four views . History: Injection procedure for pain. 18 seconds of fluoroscopy time is reported. Findings: A sequence of four fluoroscopically obtained last image hold procedural spot radiographs of the lumbar spine document needle position and contrast injection associated with injection procedure. Electronically Signed by Melecio Manzano MD 01/13/2019 02:49 P
--- NOTE | 2019-01-24 00:04 | ECWPNPC ---
PATIENT NAME: CHRISTAL HARRIS : 1960 GENDER: FEMALE VISIT DATE: 01/13/2019 DISCHARGE DATE: 01/13/19 1508 VISIT LOCKED DATE TIME: PHYSICIAN: JARAD SIMMS MD RESOURCE: JARAD SIMMS MD REASON FOR APPOINTMENT 1. BILAT. L4/5-L5/S1 THERAPEUTIC FACET BLOCK HISTORY OF PRESENT ILLNESS HISTORY OF PRESENT ILLNESS: PAIN THE PATIENT DESCRIBES THE PAIN... FALL RISK SCREENING: SCREENING : NO FALLS IN THE PAST YEAR. CURRENT MEDICATIONS TAKING CRESTOR 10 MG TABLET 1 TABLET ORALLY ONCE A DAY, NOTES: 01-13-19699 TAKING PANTOPRAZOLE SODIUM 40 MG TABLET DELAYED RELEASE 1 TABLET ORALLY ONCE A DAY, NOTES: 01-13-19799 TAKING FUROSEMIDE 40 MG TABLET 1 TABLET ORALLY ONCE A DAY, NOTES: 01-13-19699 TAKING ROPINIROLE HCL 1 MG TABLET 1 1/2 TABS ORALLY BID, NOTES: 01-13-19 08-00 TAKING IBUPROFEN 800 MG TABLET 1 TABLET WITH FOOD OR MILK NEEDED ORALLY BID PRN, NOTES: A COUPLE DAYS TAKING BUSPIRONE HCL 5 MG TABLET 1 TABLET ORALLY THREE TIMES A DAY, NOTES: 01-12-192099 TAKING GABAPENTIN 100 MG CAPSULE 1 CAPSULE ORALLY BID, NOTES: 01-12-19 1400 TAKING GABAPENTIN 300 MG TABLET 1 CAPSULE ORALLY FOR PAIN THREE TIMES A DAY, NOTES: 01-12-192099 TAKING VIIBRYD 40 MG TABLET 1 CAP ORALLY DAILY, NOTES: 01-12-192099 UNKNOWN MULTIVITAMINS CAPSULE 2 GUMMIES ORALLY DAILY UNKNOWN VITAMIN D (ERGOCALCIFEROL) 89975 UNIT CAPSULE 1 CAPSULE ORALLY UNKNOWN TRAMADOL HCL 50 MG TABLET 1 TABLET ORALLY BEFORE BEDTIME PRN UNKNOWN FENOFIBRATE MICRONIZED 200 MG CAPSULE 1 CAPSULE WITH A MEAL ORALLY ONCE A DAY MEDICATION LIST REVIEWED AND RECONCILED WITH THE PATIENT PAST MEDICAL HISTORY HTN ANEMIA OBESITY S/P GASTRIC BYPASS HISTORY OF FLUID RETENTION BLADDER MESH DEGENERATIVE DISC DISEASE RESTLESS LEG SYNDROME DEPRESSION ANXIETY LOW BACK AND LEFT HIP PAIN RADIATING DOWN LEFT LEG TO FOOT KING CYST BILATERAL LAURITA BILATERAL CARPAL TUNNEL BILATERAL LEG WEAKNESS AND PARESTHESIAS AROUND THE KNEE ALLERGIES N.K.D.A. SURGICAL HISTORY GASTRIC BYPASS 04/27/2008 BREAST REDUCTION 07/05/15 ROTATOR CUFF LEFT 2014 BLADDER REPAIR 1991,05/2003 HEMMORIOD REMOVAL 2014 HYSTERECTOMY 02/1995 GALLBLADDER REMOVED 02/1995 TONSILS REMOVED 1981 JACKELIN REMOVED FROM LEFT SIDE OF FACE 1970 COLON RESECTION FOR COLON CA 2016 FAMILY HISTORY FATHER: , DEPRESSION ,CHF, DIAGNOSED WITH DIABETES, HYPERTENSION, CANCER, OTHER MOTHER: , RETUM CANCER, DIAGNOSED WITH CANCER SIBLINGS: ALIVE, HYPERLIPIDEMIA,HTN,ASTHMA,DEPRESSION 2 SISTER(S) . 2DAUGHTER(S) - HEALTHY. DAD-SKIN CA, HIGH CHOLESTEROL, ? ASTHMAMOM-RECTAL CASISTER-ASHTMA, DISABLED DUE TO SPINAL CORD INJURY. SOCIAL HISTORY GENERAL: TOBACCO USE ARE YOU A:NONSMOKER ALCOHOL SCREENING DID YOU HAVE A DRINK CONTAINING ALCOHOL IN THE PAST YEAR?NO POINTS0 INTERPRETATIONNEGATIVE RECREATIONAL DRUG USE DRUG USE?NO CAFFEINE CAFFEINE USE?YES 4 CUPS OF COFFEE A DAY SEXUAL HX HAD SEX IN THE LAST 12 MONTHS (VAGINAL, ORAL, OR ANAL)?NO HAVE YOU EVER HAD AN STD?NO SCIENTOLOGY [id number] HOLINESS LANGUAGE [place]ING[place]AN. EDUCATION LEVEL OF EDUCATION:FINISHED [employer] DEGREE LEARNING BARRIERS / SPECIAL NEEDS BARRIERS TO LEARNING?NO HEARING IMPAIRED?NO VISION IMPAIRED?YES :CORRECTIVE LENSES READING GLASSES COGNITIVELY IMPAIRED?NO READINESS TO LEARN?YES LEARNING PREFERENCES?YES :DEMONSTRATION/VERBAL INSTRUCTION LEARNING CAPABILITIES PRESENT?YES EMOTIONAL BARRIERS?NO SPECIAL DEVICES?NO STEWARD RACETRACK NEEDED?NO DOMESTIC VIOLENCE NONE. DIET: REGULAR. EXERCISE: WALKS. MARITAL STATUS: .. OTHERS AT HOME: BOYFRIEND. NEW PATIENT PAIN DIARY PATIENT DESCRIBES PAIN :BURNING, HAVE IT ALL THE TIME FROM 0-10, WHAT LEVEL IS YOUR PAIN TODAY?8 PRECIPITATING FACTORS SITTING OR STANDING TOO LONG. WORSE AT NIGHT ALLEVIATING FACTORS SOAKING IN A BATH TUB IMPACT ON FUNCTION CAN'T DO MUCH OF ANYTHING PAIN CLINIC PFS, CLERGY, PUBLIC HEALTH REFERRALS PFS REFERRAL NEEDED?NO CLERGY REFERRAL NEEDED?NO PUBLIC HEALTH REFERRAL NEEDED?NO HAS THE PATIENT BEEN EDUCATED REGARDING HIS/HER PLAN OF CARE?YES HAS THE PATIENT BEEN EDUCATED REGARDING PAIN, THE RISK FOR PAIN, THE IMPORTANCE OF EFFECTIVE PAIN MANAGEMENT, AND THE PAIN ASSESSMENT PROCESS?YES ADVANCE DIRECTIVE ADVANCE DIRECTIVE DISCUSSED WITH PATIENT:YES PT. DECLINES INFORMATION HOSPITALIZATION/MAJOR DIAGNOSTIC PROCEDURE SURGERY RELATED REVIEW OF SYSTEMS REVIEWED BY: PROVIDER: . CONSTITUTIONAL: ANY CHANGE IN YOUR MEDICAL CONDITION? NO . CHILLS NO . FEVER NO . INFECTION: DO YOU HAVE NEW INFECTIONS? NO . DO YOU HAVE HISTORY OF MRSA? NO . MUSCULOSKELETAL: ANY NEW PATTERNS OF PAIN OR NUMBNESS? NO . GASTROENTEROLOGY: ANY NEW CHANGE IN BOWEL CONTROL? NO . GENITOURINARY: ANY NEW CHANGE IN BLADDER CONTROL? NO . IS THERE A CHANCE YOU COULD BE ? NO . HEMATOLOGY/LYMPH: DO YOU TAKE ANY BLOOD THINNERS? (FOR EXAMPLE- COUMADIN, PLAVIX, AGGRENOX, PLATEL, PRADAXA, OR XARELTO) NO . WHEN WAS YOUR LAST DOSE? DATE: TIME: . NEUROLOGY: HAVE YOU FALLEN IN THE PAST 12 MONTHS? YES . ANY NEW EXTREMITY NUMBNESS OR WEAKNESS? NO . CARDIOLOGY: DO YOU HAVE A PACEMAKER OR DEFIBRILLATOR? NO . RESPIRATORY: HAVE YOU BEEN SICK IN THE PAST WEEK? NO . FEVER NO . FLU LIKE SYMPTOMS? NO . COUGH NO . INTEGUMENTARY: DO YOU HAVE ANY RASHES OR OPEN SORES? NO . ALLERGIC/IMMUNO: ARE YOU ALLERGIC TO IV DYE? NO . ANY NEW ALLERGIES? NO . PSYCHIATRIC: DO YOU HAVE THOUGHTS OF HURTING YOURSELF OR SOMEONE ELSE? NO . ARE YOU ABUSED, NEGLECTED, OR IN AN UNSAFE ENVIRONMENT? NO . ENDOCRINOLOGY: ARE YOU DIABETIC? NO . OTHER: DO YOU NEED ANY PRESCRIPTIONS? NO . IF YES, PLEASE LIST: ____ . ANY NEW PROBLEMS WITH YOUR MEDICATIONS? NO . WHEN DID YOU LAST EAT? ____01-13-19 0530 . WHEN DID YOU LAST DRINK? ____01-13-19 1130 AM . WHAT DID YOU LAST DRINK? ____WATRER . NAME OF PERSON DRIVING YOU HOME? ____PAULIE REYES . DO YOU HAVE ANY OTHER QUESTIONS OR CONCERNS NO . VITAL SIGNS WT 232.4 LBS, HT 64 IN, BMI 39.89 INDEX, BP 128/79 MM HG, HR 72 /MIN, RR 16 /MIN, TEMP 97.6 F, OXYGEN SAT % 95%, NA INITIALS SC 12:41. ASSESSMENTS SPONDYLOSIS OF LUMBAR REGION WITHOUT MYELOPATHY OR RADICULOPATHY - M47.816 (PRIMARY) SPONDYLOSIS OF LUMBOSACRAL REGION WITHOUT MYELOPATHY OR RADICULOPATHY - M47.817 PROCEDURES PN LUMBAR FACET BLOCK THERAPEUTIC PRE PROCEDURE DIAGNOSIS LUMBAR SPONDYLOSIS, LUMBOSACRAL SPONDYLOSIS POST PROCEDURE DIAGNOSIS LUMBAR SPONDYLOSIS, LUMBOSACRAL SPONDYLOSIS PROCEDURE BILATERAL L4-L5 AND BILATERAL L5-S1 LUMBAR FACET THERAPEUTIC BLOCK SURGEON DR. JARAD SIMMS SUPERVISOR LUMP ROOM NONE ANESTHESIA LOCAL PRE PROCEDURE NOTE THE PATIENT HAS A HISTORY OF CHRONIC LOW BACK PAIN. I EVALUATE THE PATIENT AND REVIEWED THE CHART. I WENT OVER THE RISKS, ALTERNATIVES, AND BENEFITS ASSOCIATED WITH THIS PROCEDURE. THE PATIENT WOULD LIKE TO PROCEED AND GIVE CONSENT TO PERFORMED THE PROCEDURE. THE PATIENT DENIES UNEXPLAINABLE WEIGHT LOSS, FEVER, CHILLS, OR NEW CHANGES IN URINARY OR BOWEL CONTROL DESCRIPTION OF PROCEDURE THE PATIENT WAS BROUGHT TO THE PROCEDURE ROOM AND PLACED IN THE PRONE POSITION. THE LUMBOSACRAL AREA WAS CLEANED WITH CHLORAPREP SOLUTION AND DRAPED ASEPTICALLY. THE PROCEDURE WAS DONE UNDER STERILE CONDITIONS. I CHECKED LATERALITY AND THE LEVEL WHERE THE PROCEDURE WAS GOING TO BE PERFORMED WITH THE PATIENT AND THE SUPPORTING STAFF AT THE MOMENT OF THE TIME OUT IN THE PROCEDURE ROOM. UNDER FLUOROSCOPIC GUIDANCE, THE TARGET POINT WAS SELECTED AT THE RIGHT AND LEFT L4-L5 AND RIGHT AND LEFT L5-S1 FACET JOINT. TARGET POINT WAS SELECTED AFTER LATERAL ROTATION AND TILT OF THE MAGNIFIER OF THE C-ARM. LIDOCAINE 0.5% WAS USED TO NUMB THE SKIN AND THE SUBCUTANEOUS TISSUE BELOW IT. SPINAL NEEDLES, 22-GAUGE, WERE ADVANCED UNDER FLUOROSCOPIC GUIDANCE AND FOLLOWING PATIENT FEEDBACK UNTIL THE TARGETS WERE TOUCHED. THE POSITION OF THE NEEDLES WAS VERIFIED WITH AP AND LATERAL VIEWS. AFTER PROPER POSITION OF THE NEEDLES WAS ACHIEVED, ISOVUE-M DYE 30% 0.1 ML WAS INJECTED SHOWING ADEQUATE SPREAD OF THE DYE. THEN A SOLUTION OF 1.9 ML OF BUPIVACAINE 0.125% OF KENALOG 10 MG WAS INJECTED AT EACH SITE. THERE WAS NO EVIDENCE OF BLOOD, PARESTHESIA OR CEREBROSPINAL FLUID DURING THE PROCEDURE. THE PATIENT WAS SENT TO THE RECOVERY ROOM. THE PATIENT WAS MOVING THE EXTREMITIES AND DOING WELL. THERE WAS NO COMPLICATION DURING THE PROCEDURE. FLUOROSCOPY TIME WAS 18 SECONDS POST PROCEDURE NOTE THE PATIENT WILL BE SEEN IN A FOLLOW UP IN THE NEXT FEW WEEKS. INSTRUCTIONS WERE GIVEN, QUESTIONS WERE ANSWERED, AND THE PATIENT EXPRESSED UNDERSTANDING AND AGREES WITH THE PLAN. I, DEBI ZAMUDIO, DOCUMENTED THE ABOVE INFORMATION ACTING A SCRIBE FOR DR. SIMMS. I HAVE REVIEWED THE ABOVE DOCUMENT, WRITTEN BY DEBI ZAMUDIO SCRIBNettie AND I VERIFY THAT IT IS ACCURATE. DIAGNOSTIC IMAGING [facility] FACET BLOCK (PAIN)[id number] PROCEDURE CODES 6045F RADXPS IN END [id number] PXD 16059 INJ PARAVERT F JNT L/S 1 LEV, MODIFIERS: 50 [id number] INJ PARAVERT F JNT L/S 2 LEV, MODIFIERS: 50 DISPOSITION & COMMUNICATION FOLLOW UP 3 WEEKS ELECTRONICALLY SIGNED BY JARAD SIMMS MD, MD ON 01/23/2019 AT 07:58 PM EDT DISCLAIMER : THIS IS A VISIT SUMMARY EXTRACTED FROM THE [employer] CHART. IT IS NOT A COPY OF THE [employer] PROGRESS NOTE. CELIAD
== END ==
LOC: M PAIN 12:15
PROVIDERS: ATTEND Anesthesiology
DX: G89.29 Other chronic pain (principal); M47.816 Spondylosis without myelopathy or radiculopathy, lumbar region; M47.817 Spondylosis without myelopathy or radiculopathy, lumbosacral region; I10 Essential (primary) hypertension; G25.81 Restless legs syndrome; F32.9 Major depressive disorder, single episode, unspecified; F41.9 Anxiety disorder, unspecified; G47.33 Obstructive sleep apnea (adult) (pediatric); Z79.899 Other long term (current) drug therapy; Z98.84 Bariatric surgery status
CPT/HCPCS: 64493; 64494; J3301; Q9967

== ENCOUNTER → 2019-01-28 | Outpatient (CLI) | payer MEDICARE, MEDICAID ==
[~2019-01-28] MED LIST changes: -BUPIVACAINE HCL 0.25% 30 ML VIAL As Ordered ONE; -ISOVUE-M 300 61% 15ML VIAL (Q9967) As Ordered ONE; -LIDOCAINE 1% SDV INJ 30 ML VIAL As Ordered ONE; -TRIAMCINOLONE ACETONIDE SUSP 40 MG/ML VIAL (J3301) As Ordered ONE; -diazePAM 5 MG TAB As Ordered ONE; -oxyCODONE 5MG TAB As Ordered ONE
--- NOTE | 2019-01-28 10:14 | REP ---
THYROID ULTRASOUND: Real-time sonographic evaluation of the thyroid was performed. Right lobe is mildly enlarged at 4.7 x 1.5 x 1.6 cm. Left lobe is not enlarged 3.8 x 1.3 x 1.4 cm. There is a 3 mm nodule in the right lobe and a 5 mm nodule in the left lobe, of doubtful significance. IMPRESSION: Mild enlargement of the right lobe of thyroid. Subcentimeter nodule in each lobe. These are of doubtful significance. Electronically Signed by Jose Juan Robledo MD 01/28/2019 04:01 P
== END ==
LOC: M RAD 09:18
PROVIDERS: ATTEND Nurse Practitioner Family
DX: E04.9 Nontoxic goiter, unspecified (principal)

== ENCOUNTER → 2019-02-26 | Outpatient (CLI) | payer MEDICARE, MEDICAID ==
[~2019-02-26] MED LIST changes: +CRES10TA PO; -CRES10TA32 PO
--- NOTE | 2019-03-03 02:09 | ECWPNPC ---
PATIENT NAME: CHRISTAL HARRIS : 1960 GENDER: FEMALE VISIT DATE: 02/26/2019 DISCHARGE DATE: 02/26/19 1321 VISIT LOCKED DATE TIME: PHYSICIAN: MARK SIMON RESOURCE: MARK SIMON REASON FOR APPOINTMENT 1. POST PROC HISTORY OF PRESENT ILLNESS HISTORY OF PRESENT ILLNESS: PAIN THE PATIENT DESCRIBES THE PAIN... 58 YR OLD FEMALE HERE FOR F/U POST PROCEDURE. PAIN LO % REDUCTION IN PAIN.TODAY VAS 2/10, SHE SAYS HER BASELINE PAIN IS NORMALLY 6/10.DOING WELL, NO OTHER ISSUES. FALL RISK SCREENING: SCREENING :NO FALLS REPORTED IN THE LAST YEAR CURRENT MEDICATIONS TAKING CRESTOR 10 MG TABLET 1 TABLET ORALLY ONCE A DAY, NOTES: 01-13-19699 TAKING PANTOPRAZOLE SODIUM 40 MG TABLET DELAYED RELEASE 1 TABLET ORALLY ONCE A DAY, NOTES: 01-13-19 08 TAKING FUROSEMIDE 40 MG TABLET 1 TABLET ORALLY ONCE A DAY, NOTES: 01-13-19 07 TAKING ROPINIROLE HCL 1 MG TABLET 1 1/2 TABS ORALLY BID, NOTES: 01-13-19 08-00 TAKING IBUPROFEN 800 MG TABLET 1 TABLET WITH FOOD OR MILK NEEDED ORALLY BID PRN, NOTES: A COUPLE DAYS TAKING BUSPIRONE HCL 5 MG TABLET 1 TABLET ORALLY BID, NOTES: 01-12-192099 TAKING GABAPENTIN 100 MG CAPSULE 1 CAPSULE ORALLY ONCE DAILY NEEDED, NOTES: 01-12-19 1400 TAKING GABAPENTIN 300 MG TABLET 1 CAPSULE ORALLY FOR PAIN BEFORE BEDTIME, NOTES: 01-12-192099 TAKING VIIBRYD 40 MG TABLET 1 CAP ORALLY DAILY, NOTES: 01-12-192099 TAKING VITAMIN D (ERGOCALCIFEROL) 63222 UNIT CAPSULE 1 CAPSULE ORALLY DISCONTINUED MULTIVITAMINS CAPSULE 2 GUMMIES ORALLY DAILY DISCONTINUED TRAMADOL HCL 50 MG TABLET 1 TABLET ORALLY BEFORE BEDTIME PRN DISCONTINUED FENOFIBRATE MICRONIZED 200 MG CAPSULE 1 CAPSULE WITH A MEAL ORALLY ONCE A DAY MEDICATION LIST REVIEWED AND RECONCILED WITH THE PATIENT PAST MEDICAL HISTORY HTN ANEMIA OBESITY S/P GASTRIC BYPASS HISTORY OF FLUID RETENTION BLADDER MESH DEGENERATIVE DISC DISEASE RESTLESS LEG SYNDROME DEPRESSION ANXIETY LOW BACK AND LEFT HIP PAIN RADIATING DOWN LEFT LEG TO FOOT KING CYST BILATERAL LAURITA BILATERAL CARPAL TUNNEL BILATERAL LEG WEAKNESS AND PARESTHESIAS AROUND THE KNEE ALLERGIES N.K.D.A. SURGICAL HISTORY GASTRIC BYPASS 04/27/2008 BREAST REDUCTION 07/05/15 ROTATOR CUFF LEFT 2014 BLADDER REPAIR 1991,05/2003 HEMMORIOD REMOVAL 2015 HYSTERECTOMY 02/1995 GALLBLADDER REMOVED 02/1995 TONSILS REMOVED 1981 JACKELIN REMOVED FROM LEFT SIDE OF FACE 1970 COLON RESECTION FOR COLON CA 2016 FAMILY HISTORY FATHER: , DEPRESSION ,CHF, DIAGNOSED WITH DIABETES, HYPERTENSION, CANCER, OTHER MOTHER: , RETUM CANCER, CANCER SIBLINGS: ALIVE, HYPERLIPIDEMIA,HTN,ASTHMA,DEPRESSION 2 SISTER(S) . 2DAUGHTER(S) - HEALTHY. DAD-SKIN CA, HIGH CHOLESTEROL, ? ASTHMA\NMOM-RECTAL CA\NSISTER-ASHTMA, DISABLED DUE TO SPINAL CORD INJURY. SOCIAL HISTORY GENERAL: TOBACCO USE ARE YOU A:NONSMOKER LATEX QUESTIONNAIRE LATEX ALLERGY : HAVE YOU EVER DEVELOPED ANY TYPE OF REACTION AFTER HANDLING LATEX PRODUCTS SUCH RUBBER GLOVES, CONDOMS, DIAPHRAGMS, BALLOONS, SOCKS, OR UNDERWEAR?NO LATEX ALLERGY : HAVE YOU EVER DEVELOPED ANY TYPE OF REACTION DURING OR AFTER DENTAL APPOINTMENT, VAGINAL/RECTAL EXAMINATION, SURGICAL PROCEDURE, OR ANY OTHER EXPOSURE?NO LATEX RISK : HAVE YOU EVER HAD ANY DIFFICULTY BREATHING OR HIVES AFTER EATING OR HANDLING ANY FRUITS, OR VEGETABLES; SUCH KIWI, BANANAS, STONE FRUITS, OR CHESTNUTSNO LATEX RISK : DO YOU HAVE A PREVIOUS PERSONAL HISTORY OF MORE THAN NINE SURGERIES, SPINA BIFIDA, OR REPEATED CATHERTIZATIONS? YES - PLEASE INDICATE : > 9 SURGERIES LATEX RISK : ARE YOU FREQUENTLY EXPOSED TO LATEX PRODUCTS IN YOUR OCCUPATION?NO DATE ASKED : 02/26/2019 ALCOHOL SCREENING DID YOU HAVE A DRINK CONTAINING ALCOHOL IN THE PAST YEAR?NO POINTS0 INTERPRETATIONNEGATIVE RECREATIONAL DRUG USE DRUG USE?NO CAFFEINE CAFFEINE USE?YES 4 CUPS OF COFFEE A DAY SEXUAL HX HAD SEX IN THE LAST 12 MONTHS (VAGINAL, ORAL, OR ANAL)?: NO, HAVE YOU EVER HAD AN STD?: NO. [employer]IST [id number] L[employer] CHILEAN. 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 DIET: REGULAR. EXERCISE: WALKS. MARITAL STATUS: .. OTHERS AT HOME: BOYFRIEND. NEW PATIENT PAIN DIARY PATIENT DESCRIBES PAIN :BURNING, HAVE IT ALL THE TIME FROM 0-10, WHAT LEVEL IS YOUR PAIN TODAY?8 PRECIPITATING FACTORS SITTING OR STANDING TOO LONG. WORSE AT NIGHT ALLEVIATING FACTORS SOAKING IN A BATH TUB IMPACT ON FUNCTION CAN'T DO MUCH OF ANYTHING PAIN CLINIC PFS, CLERGY, PUBLIC HEALTH REFERRALS PFS REFERRAL NEEDED?NO CLERGY REFERRAL NEEDED?NO PUBLIC HEALTH REFERRAL NEEDED?NO HAS THE PATIENT BEEN EDUCATED REGARDING HIS/HER PLAN OF CARE?YES HAS THE PATIENT BEEN EDUCATED REGARDING PAIN, THE RISK FOR PAIN, THE IMPORTANCE OF EFFECTIVE PAIN MANAGEMENT, AND THE PAIN ASSESSMENT PROCESS?YES ADVANCE DIRECTIVE ADVANCE DIRECTIVE DISCUSSED WITH PATIENT:YES PT. DECLINES INFORMATION 02/26/19 HOSPITALIZATION/MAJOR DIAGNOSTIC PROCEDURE SURGERY RELATED REVIEW OF SYSTEMS REVIEWED BY: PROVIDER: BELKYS . CONSTITUTIONAL: ANY CHANGE IN YOUR MEDICAL CONDITION? NO . CHILLS NO . FEVER NO . INFECTION: DO YOU HAVE NEW INFECTIONS? NO . DO YOU HAVE HISTORY OF MRSA? NO . MUSCULOSKELETAL: ANY NEW PATTERNS OF PAIN OR NUMBNESS? YES . GASTROENTEROLOGY: ANY NEW CHANGE IN BOWEL CONTROL? NO . GENITOURINARY: ANY NEW CHANGE IN BLADDER CONTROL? YES . IS THERE A CHANCE YOU COULD BE ? NO . HEMATOLOGY/LYMPH: DO YOU TAKE ANY BLOOD THINNERS? (FOR EXAMPLE- COUMADIN, PLAVIX, AGGRENOX, PLATEL, PRADAXA, OR XARELTO) NO . WHEN WAS YOUR LAST DOSE? DATE: TIME: . NEUROLOGY: HAVE YOU FALLEN IN THE PAST 12 MONTHS? NO . ANY NEW EXTREMITY NUMBNESS OR WEAKNESS? YES, RIGHT ARM . CARDIOLOGY: DO YOU HAVE A PACEMAKER OR DEFIBRILLATOR? NO . RESPIRATORY: HAVE YOU BEEN SICK IN THE PAST WEEK? NO . FEVER NO . FLU LIKE SYMPTOMS? NO . COUGH NO . INTEGUMENTARY: DO YOU HAVE ANY RASHES OR OPEN SORES? NO . ALLERGIC/IMMUNO: ARE YOU ALLERGIC TO IV DYE? NO . ANY NEW ALLERGIES? NO . PSYCHIATRIC: DO YOU HAVE THOUGHTS OF HURTING YOURSELF OR SOMEONE ELSE? NO . ARE YOU ABUSED, NEGLECTED, OR IN AN UNSAFE ENVIRONMENT? NO . ENDOCRINOLOGY: ARE YOU DIABETIC? NO . OTHER: DO YOU NEED ANY PRESCRIPTIONS? NO . IF YES, PLEASE LIST: ____ . ANY NEW PROBLEMS WITH YOUR MEDICATIONS? NO . WHEN DID YOU LAST EAT? ____ . WHEN DID YOU LAST DRINK? ____ . WHAT DID YOU LAST DRINK? ____ . NAME OF PERSON DRIVING YOU HOME? ____ . DO YOU HAVE ANY OTHER QUESTIONS OR CONCERNS NO . VITAL SIGNS WT 235.2 LBS, HT 64 IN, BMI 40.37 INDEX, BP 163/87 MM HG, HR 105 /MIN, RR 18 /MIN, TEMP 97.5 F, OXYGEN SAT % 95%, NA INITIALS SC 11:48. EXAMINATION GENERAL EXAMINATION: GENERAL APPEARANCE:NO ACUTE DISTRESS, WELL NOURISHED AND HYDRATED. PSYCHAPPROPRIATE MOOD AND AFFECT . LUNGS:CLEAR TO AUSCULTATION BILATERALLY, NO WHEEZES, RHONCHI, RALES. HEART:NO MURMURS, REGULAR RATE AND RHYTHM. BACK: FROM TENDER TO PALPATION TO PARASINAL MUSCLES SLR NEG BILAT . ASSESSMENTS SPONDYLOSIS OF LUMBOSACRAL REGION WITHOUT MYELOPATHY OR RADICULOPATHY - M47.817 (PRIMARY) SPONDYLOSIS OF LUMBAR REGION WITHOUT MYELOPATHY OR RADICULOPATHY - M47.816 TREATMENT SPONDYLOSIS OF LUMBOSACRAL REGION WITHOUT MYELOPATHY OR RADICULOPATHY CLINICAL NOTES: PATIENT WAS ADVISED TO START A WALKING PROGRAM TO STRENGTHEN LUMBAR PARASPINAL MUSCLES AND IMPROVE MOBILITY. THEY WERE ADVISED THAT THIS WILL IMPROVE WEIGHT LOSS AND ALSO DEPRESSION/FIBROMYALGIA SYMPTOMS. ADVISED TO WALK 10 MINUTES EVERY OTHER DAY ON A FLAT SURFACE. EMPHASIZED THE IMPORTANCE OF DOING THIS CONSISTANTLY AND NOT SPORATICALLY TO AVOID INJURY. STRONG ADVISED NOT TO DO MORE THAN 10 MINUTES EVERY OTHER DAY FOR THE FIRST 4 WEEKS. PROCEDURE CODES FA211 ESTABILISHED PATIENT [facility] CHARGE DISPOSITION & COMMUNICATION FOLLOW UP 3 MONTHS ELECTRONICALLY SIGNED BY JANET GOOD ON 03/01/2019 AT 01:38 PM EDT DISCLAIMER : THIS IS A VISIT SUMMARY EXTRACTED FROM THE [employer] CHART. IT IS NOT A COPY OF THE [employer] PROGRESS NOTE. AYUSH
== END ==
LOC: M PAIN 11:30
PROVIDERS: ATTEND Nurse Practitioner Family
DX: M47.817 Spondylosis without myelopathy or radiculopathy, lumbosacral region (principal); M47.816 Spondylosis without myelopathy or radiculopathy, lumbar region; I10 Essential (primary) hypertension; Z98.84 Bariatric surgery status; G25.81 Restless legs syndrome; Z86.59 Personal history of other mental and behavioral disorders; G47.33 Obstructive sleep apnea (adult) (pediatric); G56.03 Carpal tunnel syndrome, bilateral upper limbs; Z98.890 Other specified postprocedural states; E66.01 Morbid (severe) obesity due to excess calories; Z68.41 Body mass index [BMI] 40.0-44.9, adult; Z79.899 Other long term (current) drug therapy

== ENCOUNTER 2019-03-02 19:17 | Emergency (ER) | payer MEDICARE, MEDICAID ==
[~2019-03-02] VITALS: Ht 162.6 cm; Wt 108.6 kg
[2019-03-02] MEDS: GASTROGRAFIN SOLUTION 30ML PO SCH ×2 (20:31→21:08)
[2019-03-02 20:35] LABS: BASO % 0.4 % (0.0-1.0); EOS # 0.1 10^3/uL (0.0-0.50); HEMOGLOBIN 12.1 g/dl (12.0-15.5); LYMPH # 2.1 10^3/uL (1.5-4.5); LYMPH % 26.5 % (24.0-44.0); MEAN CORPUSCULAR HEMOGLOBIN 27.2 pg (27.0-33.0); MEAN CORPUSCULAR HGB CONC 31.8 g/dl (32.0-36.5); MEAN CORPUSCULAR VOLUME 85.4 fl (80.0-96.0); MONO # 0.6 10^3/uL (0.0-0.8); MONO % 7.1 % (0.0-5.0); NEUTROPHILS # 5.1 10^3/uL (1.8-7.7); NEUTROPHILS % 64.5 % (36.0-66.0); PLATELET COUNT, AUTOMATED 243 10^3/uL (150-450); RED BLOOD COUNT 4.45 10^6/uL (4.00-5.40); WHITE BLOOD COUNT 7.9 10^3/uL (4.0-10.0)
[2019-03-02 20:55] LABS: ALT/SGPT 58 U/L (12-78); BLOOD UREA NITROGEN 19 MG/DL (7-18); CALCIUM LEVEL 8.3 MG/DL (8.5-10.1); CARBON DIOXIDE LEVEL 27 MEQ/L (21-32); CHLORIDE LEVEL 112 MEQ/L (98-107); CREATININE FOR GFR 0.58 MG/DL (0.55-1.30); GLOMERULAR FILTRATION RATE > 60.0 (>51); GLUCOSE, FASTING 107 MG/DL (70-100); POTASSIUM SERUM 4.4 MEQ/L (3.5-5.1); SODIUM LEVEL 145 MEQ/L (136-145)
[2019-03-02 20:56] LABS: ALBUMIN 3.4 GM/DL (3.2-5.2); BILIRUBIN,DIRECT < 0.1 MG/DL (0.0-0.2); BILIRUBIN,TOTAL 0.4 MG/DL (0.2-1.0); CPK CREATINE PHOSPHOKINASE 66 U/L (26-192); LIPASE 169 U/L (73-393); MB/CK RELATIVE INDEX 2.27 (< OR =4); TOTAL PROTEIN 6.7 GM/DL (6.4-8.2); TROPONIN I < 0.02 NG/ML (< 0.10)
[2019-03-02] MEDS ORDERED: ISOVUE-370 76% 100ML VIAL (Q9967) As Ordered ONE (22:20)
--- NOTE | 2019-03-02 23:28 | ECGEPIP ---
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
--- NOTE | 2019-03-03 00:21 | REPVR ---
EXAM: CT Abdomen and Pelvis With Contrast EXAM DATE/TIME: 03/02/2019 10:26 PM CLINICAL HISTORY: 58 years old, female; Abdominal pain; Generalized; Prior surgery; Additional info: R/O perforated gastric bypass anastamosis TECHNIQUE: Imaging protocol: Axial computed tomography images of the abdomen and pelvis with intravenous contrast. Coronal and sagittal reformatted images were created and reviewed. Radiation optimization: All CT scans at this facility use at least one of these dose optimization techniques: automated exposure control; mA and/or kV adjustment per patient size (includes targeted exams where dose is matched to clinical indication); or iterative reconstruction. Contrast material: ISOVUE 370; Contrast volume: 100 ml; Contrast route: IV; COMPARISON: CT ABD PELVIS W/O FOL BY WIT 09/19/2014 9:58 AM FINDINGS: ABDOMEN: Liver: Normal. No mass. Gallbladder and bile ducts: Status post cholecystectomy. CBD measures 8 mm in diameter. Pancreas: Normal. No ductal dilation. Spleen: Normal. No splenomegaly. Adrenals: Normal. No mass. Kidneys and ureters: Normal. No hydronephrosis. Stomach and bowel: Status post gastric bypass surgery. Negative for colonic diverticulitis. No abnormal bowel dilatation. No abnormal bowel wall thickening. Appendix: The appendix is not seen. However, there is no evidence of appendicitis. PELVIS: Bladder: Unremarkable as visualized. Reproductive: Status post hysterectomy. ABDOMEN and PELVIS: Intraperitoneal space: Normal. No free air. No significant fluid collection. Bones/joints: No acute fracture. No dislocation. Degenerative changes of the pubic symphysis. Soft tissues: Unremarkable. Vasculature: Mild atherosclerotic disease. No aortic aneurysm. Lymph nodes: Multiple small mesenteric nodes. IMPRESSION: 1. Negative for bowel obstruction. 2. Status post gastric bypass surgery. 3. Additional findings as described. Electronically signed by: Savi Fagan On 03/03/2019 00:21:27 AM
[2019-03-03 00:52] VITALS: BP 141/87
== END 2019-03-03 00:53 | disposition home or self-care (01) ==
LOC: M ED 19:17
DX: K29.70 Gastritis, unspecified, without bleeding (principal); I10 Essential (primary) hypertension; E78.5 Hyperlipidemia, unspecified; G25.81 Restless legs syndrome; F33.9 Major depressive disorder, recurrent, unspecified; G47.33 Obstructive sleep apnea (adult) (pediatric); E66.8 Other obesity; Z98.84 Bariatric surgery status; Z79.899 Other long term (current) drug therapy
CPT/HCPCS: 36415; 74177; 80048; 80076; 82550; 82553; 83690; 84484; 85025; 87040; 87077; 87186; 93005; 93041; 99284; Q9963; Q9967

== ENCOUNTER → 2019-04-27 | Outpatient (REF) | payer MEDICARE, MEDICAID ==
[~2019-04-27] MED LIST changes: +PROT1TAB2 PO; +VIIB40TA PO
[2019-04-27 19:10] LABS: BASO # 0.1 10^3/uL (0.0-0.2); BASO % 0.7 % (0.0-1.0); EOS # 0.2 10^3/uL (0.0-0.50); EOS % 2.3 % (0.0-3.0); HEMATOCRIT 36.9 % (36.0-47.0); HEMOGLOBIN 11.5 g/dl (12.0-15.5); LYMPH # 2.1 10^3/uL (1.5-4.5); LYMPH % 28.7 % (24.0-44.0); MEAN CORPUSCULAR HEMOGLOBIN 28.3 pg (27.0-33.0); MEAN CORPUSCULAR HGB CONC 31.2 g/dl (32.0-36.5); MEAN CORPUSCULAR VOLUME 90.7 fl (80.0-96.0); MONO # 0.5 10^3/uL (0.0-0.8); MONO % 7.4 % (0.0-5.0); NEUTROPHILS # 4.4 10^3/uL (1.8-7.7); NEUTROPHILS % 60.5 % (36.0-66.0); PLATELET COUNT, AUTOMATED 255 10^3/uL (150-450); RED BLOOD COUNT 4.07 10^6/uL (4.00-5.40); WHITE BLOOD COUNT 7.3 10^3/uL (4.0-10.0)
[2019-04-27 19:26] LABS: ALBUMIN 3.6 GM/DL (3.2-5.2); ALT/SGPT 26 U/L (12-78); BILIRUBIN,TOTAL 0.5 MG/DL (0.2-1.0); BLOOD UREA NITROGEN 12 MG/DL (7-18); CALCIUM LEVEL 9.2 MG/DL (8.5-10.1); CARBON DIOXIDE LEVEL 27 MEQ/L (21-32); CHLORIDE LEVEL 109 MEQ/L (98-107); CREATININE FOR GFR 0.54 MG/DL (0.55-1.30); FERRITIN 21 NG/ML (8-252); FOLATE 14.7 NG/ML; GLOMERULAR FILTRATION RATE > 60.0 (>51); GLUCOSE, FASTING 87 MG/DL (70-100); SODIUM LEVEL 143 MEQ/L (136-145); TOTAL 25(OH) VITAMIN D 40.9 NG/ML (30.0-100.0); TOTAL PROTEIN 6.7 GM/DL (6.4-8.2); VITAMIN B12 LEVEL 430 PG/ML
[2019-04-29 11:13] LABS: ALBUMIN 4.08 GM/DL (3.29-5.55); ALBUMIN % 60.9 % (55.8-66.1); ALPHA-1-GLOBULIN % 3.4 % (2.9-4.9); ALPHA-1-GLOBULINS 0.23 GM/DL (0.17-0.41); ALPHA-2-GLOBULINS 0.69 GM/DL (0.42-0.99); ALPHA-2-GLOBULINS % 10.3 % (7.1-11.8); BETA-1-GLOBULINS 0.49 GM/DL (0.28-0.60); BETA-1-GLOBULINS % 7.3 % (4.7-7.2); BETA-2-GLOBULINS 0.38 GM/DL (0.19-0.55); BETA-2-GLOBULINS % 5.7 % (3.2-6.5); GAMMA GLOBULIN % 12.4 % (11.1-18.8); GAMMA GLOBULINS 0.83 GM/DL (0.65-1.58)
[2019-05-01 14:19] LABS: VITAMIN B1 LEVEL WHOLE BLOOD 117.7 nmol/L (66.5-200.0); VITAMIN B6,PYRIDOXAL PHOSPHATE 5.6 ug/L (2.0-32.8); VITAMIN E(ALPHA TOCOPHEROL) 11.8 mg/L (7.0-25.1); VITAMIN E(GAMMA TOCOPHEROL) 2.6 mg/L (0.5-5.5)
== END ==
LOC: M LABNEURO 14:15
PROVIDERS: ATTEND Psychiatry & Neurology Neurology
DX: G90.09 Other idiopathic peripheral autonomic neuropathy (principal); Z79.899 Other long term (current) drug therapy

== ENCOUNTER → 2019-05-06 | Outpatient (REF) | payer MEDICARE, MEDICAID ==
[2019-05-07 15:45] LABS: CRYSTALS, BODY FLUID NONE SEEN (NONE SEEN); SOURCE, BODY FLUID LFT KNEE; SOURCE, BODY FLUID CRYSTALS LFT KNEE; SOURCE, BODY FLUID GLUCOSE LFT KNEE; SYNOVIAL FLUID COLOR RED (YELLOW)
[2019-05-07 15:46] LABS: MUCIN CLOT TEST 4+ (4+)
[2019-05-07 15:49] LABS: SOURCE, BODY FLUID URIC ACID LFT KNEE
[2019-05-09 06:59] LABS: BODY FLUID RHEUMATOID SCREEN NEGATIVE (NEGATIVE)
== END ==
LOC: M LAB REF 15:26
PROVIDERS: ATTEND Physician Assistant
DX: M25.562 Pain in left knee (principal); M17.0 Bilateral primary osteoarthritis of knee

== ENCOUNTER 2019-05-17 11:31 | Day surgery (SDC) | payer MEDICARE, MEDICAID ==
[~2019-05-17] VITALS: Ht 163.8 cm; Wt 106.1 kg
[~2019-05-17 11:31] MED LIST changes: +NS 1,000 ML IV ONE
[2019-05-17] MEDS ORDERED: LIDOCAINE 2% INJ 100 MG/5 ML SDV (FOR ANES.) As Ordered ONE (11:56)
[2019-05-17] MEDS ORDERED: PROPOFOL 200 MG/20 ML VIAL As Ordered ONE (11:56)
--- NOTE | 2019-05-17 12:36 | ROOR ---
Patient Name: Susy Fernandes Procedure Date: 05/17/2019 12:18 PM Date of : 1960 Age: 58 Room: [facility] Gender: Female Note Status: Finalized Procedure: Upper GI endoscopy + Balloon Dilatation Indications: Dysphagia, Heartburn, Chest pain (non cardiac) Providers: Claudio Armendariz MD Referring MD: KAITLIN ATKINS NP Requesting Provider: Medicines: Monitored Anesthesia Care Complications: No immediate complications. Procedure: Pre-Anesthesia Assessment: - The heart rate, respiratory rate, oxygen saturations, blood pressure, adequacy of pulmonary ventilation, and response to care were monitored throughout the procedure. The Endoscope was introduced through the mouth, and advanced to the second part of duodenum. The upper GI endoscopy was accomplished without difficulty. The patient tolerated the procedure well. Findings: The Z-line was regular and was found 35 cm from the incisors. The exam of the esophagus was otherwise normal. A TTS dilator was passed through the scope. Dilation with an 18-19-20 mm balloon dilator was performed to 20 mm in the entire esophagus. Evidence of a gastric bypass was found. A gastric pouch with a small size was found. The staple line appeared intact. The gastrojejunal anastomosis was characterized by healthy appearing mucosa. This was traversed. The [id number] limb was characterized by healthy appearing mucosa. The exam was otherwise without abnormality. Impression: - Z-line regular, 35 cm from the incisors. - Gastric bypass with a small-sized pouch and intact staple line. Gastrojejunal anastomosis characterized by healthy appearing mucosa. - The examination was otherwise normal. - Dilation performed in the entire esophagus. - No specimens collected. - The examination was otherwise normal. Recommendation: - Patient has a contact number available for emergencies. The signs and symptoms of potential delayed complications were discussed with the patient. Return to normal activities tomorrow. Written discharge instructions were provided to the patient. - Discharge patient to home. - Follow an antireflux regimen. - Return to referring physician. - The findings and recommendations were discussed with the patient's family. Claudio Armendariz MD Claudio Armendariz MD 05/17/2019 12:35:44 PM Electronically signed by Claudio Armendariz MD Number of Addenda: 0 Note Initiated On: 05/17/2019 12:18 PM Estimated Blood Loss: Estimated blood loss: none.
[2019-05-17 12:38] VITALS: BP_DIAS 81
[2019-05-17 12:55] VITALS: BP_SYST 160
== END 2019-05-17 13:03 | disposition home or self-care (01) ==
LOC: M OPP 11:31
PROVIDERS: ATTEND Internal Medicine Gastroenterology
DX: Z98.84 Bariatric surgery status (principal); R13.10 Dysphagia, unspecified; R12 Heartburn; R07.89 Other chest pain; Z79.899 Other long term (current) drug therapy

== ENCOUNTER → 2019-05-20 | Outpatient (CLI) | payer MEDICARE, MEDICAID ==
[~2019-05-20] MED LIST changes: +ACET300T47 PO; -NS 1,000 ML IV ONE; +OMEP-221 PO
--- NOTE | 2019-06-01 00:23 | ECWPNPC ---
PATIENT NAME: CHRISTAL HARRIS : 1960 GENDER: FEMALE VISIT DATE: 05/20/2019 DISCHARGE DATE: 05/20/19 1216 VISIT LOCKED DATE TIME: PHYSICIAN: ANDREIA WALDROP RESOURCE: ANDREIA WALDROP REASON FOR APPOINTMENT 1. LOW BACK HISTORY OF PRESENT ILLNESS HISTORY OF PRESENT ILLNESS: HERE FOR F/U OF CHRONIC LOW BACK PAIN.RATING PAIN VAS 6/10.DESCRIBES PAIN CONTINUOUS,BURNING AND STABBING.SHE IS LEARY ABOUT MOVING FORWARD WITH RADIOFREQUENCY. PAIN THE PATIENT DESCRIBES THE PAIN... THE PATIENT DESCRIBES THE PAIN... PAIN THE PATIENT DESCRIBES THE PAIN... THE PATIENT DESCRIBES THE PAIN... FALL RISK SCREENING: SCREENING :NO FALLS REPORTED IN THE LAST YEAR CURRENT MEDICATIONS TAKING CRESTOR 10 MG TABLET 1 TABLET ORALLY ONCE A DAY TAKING PANTOPRAZOLE SODIUM 40 MG TABLET DELAYED RELEASE 1 TABLET ORALLY ONCE A DAY TAKING FUROSEMIDE 40 MG TABLET 1 TABLET ORALLY ONCE A DAY TAKING ROPINIROLE HCL 1 MG TABLET 1 1/2 TABS ORALLY BID TAKING IBUPROFEN 800 MG TABLET 1 TABLET WITH FOOD OR MILK NEEDED ORALLY BID PRN TAKING BUSPIRONE HCL 5 MG TABLET 1 TABLET ORALLY BID TAKING VIIBRYD 40 MG TABLET 1 CAP ORALLY DAILY TAKING VITAMIN D (ERGOCALCIFEROL) 41669 UNIT CAPSULE 1 CAPSULE ORALLY NOT-TAKING GABAPENTIN 100 MG CAPSULE 1 CAPSULE ORALLY ONCE DAILY NEEDED NOT-TAKING GABAPENTIN 300 MG TABLET 1 CAPSULE ORALLY FOR PAIN BEFORE BEDTIME MEDICATION LIST REVIEWED AND RECONCILED WITH THE PATIENT PAST MEDICAL HISTORY HTN ANEMIA OBESITY S/P GASTRIC BYPASS HISTORY OF FLUID RETENTION BLADDER MESH DEGENERATIVE DISC DISEASE RESTLESS LEG SYNDROME DEPRESSION ANXIETY LOW BACK AND LEFT HIP PAIN RADIATING DOWN LEFT LEG TO FOOT KING CYST BILATERAL LAURITA BILATERAL CARPAL TUNNEL BILATERAL LEG WEAKNESS AND PARESTHESIAS AROUND THE KNEE SWELLING IN FEET ALLERGIES N.K.D.A. SURGICAL HISTORY GASTRIC BYPASS 04/27/2008 BREAST REDUCTION 07/05/15 ROTATOR CUFF LEFT 2014 BLADDER REPAIR 1991,05/2003 HEMMORIOD REMOVAL 2014 HYSTERECTOMY 02/1995 GALLBLADDER REMOVED 02/1995 TONSILS REMOVED 1981 JACKELIN REMOVED FROM LEFT SIDE OF FACE 1970 COLON RESECTION FOR COLON CA 2016 FAMILY HISTORY FATHER: , DEPRESSION ,CHF, DIAGNOSED WITH DIABETES, HYPERTENSION, CANCER, OTHER MOTHER: , RETUM CANCER, CANCER SIBLINGS: ALIVE, HYPERLIPIDEMIA,HTN,ASTHMA,DEPRESSION 2 SISTER(S) . 2DAUGHTER(S) - HEALTHY. DAD-SKIN CA, HIGH CHOLESTEROL, ? ASTHMA\NMOM-RECTAL CA\NSISTER-ASHTMA, DISABLED DUE TO SPINAL CORD INJURY. SOCIAL HISTORY GENERAL: TOBACCO USE ARE YOU A:NONSMOKER OTHERS AT HOME: BOYFRIEND. EDUCATION LEVEL OF EDUCATION:FINISHED [employer] DEGREE DIET: REGULAR. LANGUAGE UPPER SORBIAN. DOMESTIC VIOLENCE NONE. NEW PATIENT PAIN DIARY PATIENT DESCRIBES PAIN :BURNING, HAVE IT ALL THE TIME FROM 0-10, WHAT LEVEL IS YOUR PAIN TODAY?8 PRECIPITATING FACTORS SITTING OR STANDING TOO LONG. WORSE AT NIGHT ALLEVIATING FACTORS SOAKING IN A BATH TUB IMPACT ON FUNCTION CAN'T DO MUCH OF ANYTHING RECREATIONAL DRUG USE DRUG USE?NO EXERCISE: WALKS. LEARNING BARRIERS / SPECIAL NEEDS BARRIERS TO LEARNING?NO HEARING IMPAIRED?NO VISION IMPAIRED?YES :CORRECTIVE LENSES READING GLASSES COGNITIVELY IMPAIRED?NO READINESS TO LEARN?YES LEARNING PREFERENCES?YES :DEMONSTRATION/VERBAL INSTRUCTION LEARNING CAPABILITIES PRESENT?YES EMOTIONAL BARRIERS?NO SPECIAL DEVICES?NO CLINIC OFFICE ASSISTANT NEEDED?NO PAIN CLINIC PFS, CLERGY, PUBLIC HEALTH REFERRALS PFS REFERRAL NEEDED?NO CLERGY REFERRAL NEEDED?NO PUBLIC HEALTH REFERRAL NEEDED?NO WAS THE PROVIDER NOTIFIED OF ANY PERTINENT INFO?YES HAS THE PATIENT BEEN EDUCATED REGARDING HIS/HER PLAN OF CARE?YES HAS THE PATIENT BEEN EDUCATED REGARDING PAIN, THE RISK FOR PAIN, THE IMPORTANCE OF EFFECTIVE PAIN MANAGEMENT, AND THE PAIN ASSESSMENT PROCESS?YES LATEX QUESTIONNAIRE LATEX ALLERGY : HAVE YOU EVER DEVELOPED ANY TYPE OF REACTION AFTER HANDLING LATEX PRODUCTS SUCH RUBBER GLOVES, CONDOMS, DIAPHRAGMS, BALLOONS, SOCKS, OR UNDERWEAR?NO LATEX ALLERGY : HAVE YOU EVER DEVELOPED ANY TYPE OF REACTION DURING OR AFTER DENTAL APPOINTMENT, VAGINAL/RECTAL EXAMINATION, SURGICAL PROCEDURE, OR ANY OTHER EXPOSURE?NO LATEX RISK : HAVE YOU EVER HAD ANY DIFFICULTY BREATHING OR HIVES AFTER EATING OR HANDLING ANY FRUITS, OR VEGETABLES; SUCH KIWI, BANANAS, STONE FRUITS, OR CHESTNUTSNO LATEX RISK : DO YOU HAVE A PREVIOUS PERSONAL HISTORY OF MORE THAN NINE SURGERIES, SPINA BIFIDA, OR REPEATED CATHERIZATIONS? YES - PLEASE INDICATE : > 9 SURGERIES LATEX RISK : ARE YOU FREQUENTLY EXPOSED TO LATEX PRODUCTS IN YOUR OCCUPATION?NO DATE ASKED : 05/20/2019 CAFFEINE CAFFEINE USE?YES 4 CUPS OF COFFEE A DAY ADVANCE DIRECTIVE ADVANCE DIRECTIVE DISCUSSED WITH PATIENT:YES PT. DECLINES INFORMATION, DECLINES ASSISTANCE AT THIS TIME MORAVIAN [id number] EPISCOPALIAN MARITAL STATUS: .. ALCOHOL SCREENING DID YOU HAVE A DRINK CONTAINING ALCOHOL IN THE PAST YEAR?NO POINTS0 INTERPRETATIONNEGATIVE SEXUAL HX HAD SEX IN THE LAST 12 MONTHS (VAGINAL, ORAL, OR ANAL)?: NO, HAVE YOU EVER HAD AN STD?: NO. HOSPITALIZATION/MAJOR DIAGNOSTIC PROCEDURE SURGERY RELATED REVIEW OF SYSTEMS REVIEWED BY: PROVIDER: ANDREIA GONZALES . CONSTITUTIONAL: ANY CHANGE IN YOUR MEDICAL CONDITION? NO . CHILLS NO . FEVER NO . INFECTION: DO YOU HAVE NEW INFECTIONS? NO . DO YOU HAVE HISTORY OF MRSA? NO . MUSCULOSKELETAL: ANY NEW PATTERNS OF PAIN OR NUMBNESS? NO . GASTROENTEROLOGY: ANY NEW CHANGE IN BOWEL CONTROL? NO . GENITOURINARY: ANY NEW CHANGE IN BLADDER CONTROL? NO . IS THERE A CHANCE YOU COULD BE ? NO . HEMATOLOGY/LYMPH: DO YOU TAKE ANY BLOOD THINNERS? (FOR EXAMPLE- COUMADIN, PLAVIX, AGGRENOX, PLATEL, PRADAXA, OR XARELTO) NO . WHEN WAS YOUR LAST DOSE? DATE: TIME: . NEUROLOGY: HAVE YOU FALLEN IN THE PAST 12 MONTHS? YES, PT STATES THAT HER KNEE GAVE OUT AND FELL, NO INJURY FROM FALL, NO REPORT TO ED . ANY NEW EXTREMITY NUMBNESS OR WEAKNESS? YES, LEFT HAND FINGER TIPS, NOTIFIED MD BEDOYA, STARTED ABOUT 2 MONTHS AGOPT STATES THAT SHE ALSO HAS WITH NUMBNESS IN LEFT KNEE STARTED ABOUT 6 MONTHS AGO . CARDIOLOGY: DO YOU HAVE A PACEMAKER OR DEFIBRILLATOR? NO . RESPIRATORY: HAVE YOU BEEN SICK IN THE PAST WEEK? NO . FEVER NO . FLU LIKE SYMPTOMS? NO . COUGH NO . INTEGUMENTARY: DO YOU HAVE ANY RASHES OR OPEN SORES? NO . ALLERGIC/IMMUNO: ARE YOU ALLERGIC TO IV DYE? NO . ANY NEW ALLERGIES? NO . PSYCHIATRIC: DO YOU HAVE THOUGHTS OF HURTING YOURSELF OR SOMEONE ELSE? NO . ARE YOU ABUSED, NEGLECTED, OR IN AN UNSAFE ENVIRONMENT? NO . ENDOCRINOLOGY: ARE YOU DIABETIC? NO . OTHER: DO YOU NEED ANY PRESCRIPTIONS? NO . IF YES, PLEASE LIST: ____ . ANY NEW PROBLEMS WITH YOUR MEDICATIONS? NO . WHEN DID YOU LAST EAT? ____ . WHEN DID YOU LAST DRINK? ____ . WHAT DID YOU LAST DRINK? ____ . NAME OF PERSON DRIVING YOU HOME? ____ . DO YOU HAVE ANY OTHER QUESTIONS OR CONCERNS NO . VITAL SIGNS WT 233.6 LBS, HT 64 IN, BMI 40.09 INDEX, BP 150/82 MM HG, HR 82 /MIN, RR 18 /MIN, TEMP 96.8 F, OXYGEN SAT % 94%, SAFE IN ENV? (Y/N) Y, NA INITIALS AW 1131, REVIEWED BY: SANTOS. EXAMINATION GENERAL EXAMINATION: GENERALALERT . PSYCHAFFECT NORMAL . LUNGS:LUNG SOUNDS ARE CLEAR . HEART:HEART RATE REGULAR . MUSCULOSKELETAL:MST TESTING IS SLIGHTLY WEAK OVER LEFT LEG COMPARED WITH RIGHT. . LUMBAR SACRAL SPINETENDER OVER LUMBAR FACETS L>R SPECIFIC LEFT SIJ PAIN NOTED WITH PALPATION. . NEUROLOGIC EXAM:NORMAL SENSATION TO LIGHT TOUCH BILAT. LOWER EXTREMITIES . DIAGNOSTIC TESTS REVIEWEDMRI L/S SPINE-05/01/18. ASSESSMENTS SPONDYLOSIS OF LUMBAR REGION WITHOUT MYELOPATHY OR RADICULOPATHY - M47.816 (PRIMARY) TREATMENT SPONDYLOSIS OF LUMBAR REGION WITHOUT MYELOPATHY OR RADICULOPATHY NOTES: BILAT. L3/4-L4/5-L5/S1 THERAPEUTIC FACET BLOCK. PROCEDURE CODES FA211 ESTABILISHED PATIENT MERGED WITH [facility] CHARGE DISPOSITION & COMMUNICATION FOLLOW UP POST (REASON: BILAT. L3/4-L4/5-L5/S1 THERAPEUTIC FACET BLOCK) ELECTRONICALLY SIGNED BY JANET OWENS ON 05/31/2019 AT 01:10 PM EDT DISCLAIMER : THIS IS A VISIT SUMMARY EXTRACTED FROM THE [employer] CHART. IT IS NOT A COPY OF THE [employer] PROGRESS NOTE. AYUSH
== END ==
LOC: M PAIN 10:45
PROVIDERS: ATTEND Nurse Practitioner Family
DX: M47.816 Spondylosis without myelopathy or radiculopathy, lumbar region (principal); I10 Essential (primary) hypertension; D64.9 Anemia, unspecified; G25.81 Restless legs syndrome; F32.9 Major depressive disorder, single episode, unspecified; F41.9 Anxiety disorder, unspecified; M54.42 Lumbago with sciatica, left side; G47.33 Obstructive sleep apnea (adult) (pediatric); Z98.84 Bariatric surgery status; M71.21 Synovial cyst of popliteal space [Baker], right knee; M71.22 Synovial cyst of popliteal space [Baker], left knee; Z85.038 Personal history of other malignant neoplasm of large intestine; Z90.49 Acquired absence of other specified parts of digestive tract; G56.03 Carpal tunnel syndrome, bilateral upper limbs; Z79.899 Other long term (current) drug therapy

== ENCOUNTER → 2019-06-25 | Outpatient (CLI) | payer MEDICARE, MEDICAID ==
[~2019-06-25] MED LIST changes: -ACET300T47 PO; -OMEP-221 PO
[2019-06-25 13:37] LABS: HEMATOCRIT 39.1 % (36.0-47.0); HEMOGLOBIN 12.2 g/dl (12.0-15.5); MEAN CORPUSCULAR HGB CONC 31.2 g/dl (32.0-36.5); MEAN CORPUSCULAR VOLUME 86.5 fl (80.0-96.0); PLATELET COUNT, AUTOMATED 251 10^3/uL (150-450); RED BLOOD COUNT 4.52 10^6/uL (4.00-5.40); WHITE BLOOD COUNT 6.2 10^3/uL (4.0-10.0)
[2019-06-25 13:46] LABS: ALBUMIN 3.8 GM/DL (3.2-5.2); ALT/SGPT 28 U/L (12-78); BILIRUBIN,TOTAL 0.5 MG/DL (0.2-1.0); BLOOD UREA NITROGEN 8 MG/DL (7-18); CALCIUM LEVEL 9.4 MG/DL (8.5-10.1); CARBON DIOXIDE LEVEL 28 MEQ/L (21-32); CHLORIDE LEVEL 108 MEQ/L (98-107); CHOLESTEROL LEVEL 211 MG/DL (<200); CHOLESTEROL RISK RATIO 3.576 (<5); CPK CREATINE PHOSPHOKINASE 112 U/L (26-192); CREATININE FOR GFR 0.71 MG/DL (0.55-1.30); GLOMERULAR FILTRATION RATE > 60.0 (>51); GLUCOSE, FASTING 105 MG/DL (70-100); HDL CHOLESTEROL 59 MG/DL (>40); LDL CHOLESTEROL 117 MG/DL (<100); NON-HDL-C 152 MG/DL; POTASSIUM SERUM 4.7 MEQ/L (3.5-5.1); SODIUM LEVEL 143 MEQ/L (136-145); TRIGLYCERIDES LEVEL 175 MG/DL (<150)
== END ==
LOC: M SMT 10:29
PROVIDERS: ATTEND Nurse Practitioner Family
DX: I10 Essential (primary) hypertension (principal); E78.5 Hyperlipidemia, unspecified

== ENCOUNTER → 2019-06-30 | Outpatient (CLI) | payer MEDICARE, MEDICAID ==
[~2019-06-30] MED LIST changes: +BUPIVACAINE HCL 0.25% 30 ML VIAL As Ordered ONE; +ISOVUE-M 200 41% 20ML VIAL (Q9966) As Ordered ONE; +LIDOCAINE 1% SDV INJ 30 ML VIAL As Ordered ONE; +TRIAMCINOLONE ACETONIDE SUSP 40 MG/ML VIAL (J3301) As Ordered ONE; +diazePAM 5 MG TAB As Ordered ONE; +oxyCODONE 5MG TAB As Ordered ONE
--- NOTE | 2019-06-30 11:41 | REP ---
FLUOROSCOPIC GUIDANCE FOR BILATERAL LUMBAR FACET BLOCK: 06/30/2019 CLINICAL HISTORY: Back pain. FINDINGS: Two images from C-arm fluoroscopy provided to Dr. Stallings of the pain clinic for bilateral lumbar facet block. Each image shows a needle at the two lowermost facet levels with some adjacent contrast density. FLUOROSCOPY TIME: 43 seconds. Electronically Signed by Toni Post MD 06/30/2019 12:30 P
--- NOTE | 2019-07-06 01:15 | ECWPNPC ---
PATIENT NAME: CHRISTAL HARRIS : 1960 GENDER: FEMALE VISIT DATE: 06/30/2019 DISCHARGE DATE: 06/30/19 1120 VISIT LOCKED DATE TIME: PHYSICIAN: JARAD SIMMS MD RESOURCE: JARAD SIMMS MD REASON FOR APPOINTMENT 1. BILAT. L4-5, L5-S1 THERAPEUTIC FB HISTORY OF PRESENT ILLNESS HISTORY OF PRESENT ILLNESS: PAIN THE PATIENT DESCRIBES THE PAIN... FALL RISK SCREENING: SCREENING :NO FALLS REPORTED IN THE LAST YEAR CURRENT MEDICATIONS TAKING CRESTOR 10 MG TABLET 1 TABLET ORALLY ONCE A DAY TAKING PANTOPRAZOLE SODIUM 40 MG TABLET DELAYED RELEASE 1 TABLET ORALLY ONCE A DAY TAKING FUROSEMIDE 40 MG TABLET 1 TABLET ORALLY ONCE A DAY TAKING ROPINIROLE HCL 1 MG TABLET 1 1/2 TABS ORALLY BID TAKING IBUPROFEN 800 MG TABLET 1 TABLET WITH FOOD OR MILK NEEDED ORALLY BID PRN TAKING BUSPIRONE HCL 5 MG TABLET 1 TABLET ORALLY BID TAKING VIIBRYD 40 MG TABLET 1 CAP ORALLY DAILY TAKING VITAMIN D (ERGOCALCIFEROL) 60263 UNIT CAPSULE 1 CAPSULE ORALLY TAKING GABAPENTIN 300 MG TABLET 1 CAPSULE ORALLY FOR PAIN BEFORE BEDTIME NOT-TAKING GABAPENTIN 100 MG CAPSULE 1 CAPSULE ORALLY ONCE DAILY NEEDED MEDICATION LIST REVIEWED AND RECONCILED WITH THE PATIENT PAST MEDICAL HISTORY HTN ANEMIA OBESITY S/P GASTRIC BYPASS HISTORY OF FLUID RETENTION BLADDER MESH DEGENERATIVE DISC DISEASE RESTLESS LEG SYNDROME DEPRESSION ANXIETY LOW BACK AND LEFT HIP PAIN RADIATING DOWN LEFT LEG TO FOOT KING CYST BILATERAL LAURITA BILATERAL CARPAL TUNNEL BILATERAL LEG WEAKNESS AND PARESTHESIAS AROUND THE KNEE SWELLING IN FEET ALLERGIES N.K.D.A. SURGICAL HISTORY GASTRIC BYPASS 04/27/2008 BREAST REDUCTION 07/05/15 ROTATOR CUFF LEFT 2014 BLADDER REPAIR 1991,05/2003 HEMMORIOD REMOVAL 2015 HYSTERECTOMY 02/1995 GALLBLADDER REMOVED 02/1995 TONSILS REMOVED 1981 JACKELIN REMOVED FROM LEFT SIDE OF FACE 1970 COLON RESECTION FOR COLON CA 2016 FAMILY HISTORY FATHER: , DEPRESSION ,CHF, DIAGNOSED WITH OTHER, DIABETES, HYPERTENSION, CANCER MOTHER: , RETUM CANCER, CANCER SIBLINGS: ALIVE, HYPERLIPIDEMIA,HTN,ASTHMA,DEPRESSION 2 SISTER(S) . 2DAUGHTER(S) - HEALTHY. DAD-SKIN CA, HIGH CHOLESTEROL, ? ASTHMA\NMOM-RECTAL CA\NSISTER-ASHTMA, DISABLED DUE TO SPINAL CORD INJURY. SOCIAL HISTORY GENERAL: TOBACCO USE ARE YOU A:NONSMOKER OTHERS AT HOME: BOYFRIEND. EDUCATION LEVEL OF EDUCATION:FINISHED [employer] DEGREE DIET: REGULAR. LANGUAGE MONGOLIAN. DOMESTIC VIOLENCE NONE. NEW PATIENT PAIN DIARY PATIENT DESCRIBES PAIN :BURNING, HAVE IT ALL THE TIME FROM 0-10, WHAT LEVEL IS YOUR PAIN TODAY?8 PRECIPITATING FACTORS SITTING OR STANDING TOO LONG. WORSE AT NIGHT ALLEVIATING FACTORS SOAKING IN A BATH TUB IMPACT ON FUNCTION CAN'T DO MUCH OF ANYTHING RECREATIONAL DRUG USE DRUG USE?NO EXERCISE: WALKS. LEARNING BARRIERS / SPECIAL NEEDS BARRIERS TO LEARNING?NO HEARING IMPAIRED?NO VISION IMPAIRED?YES :CORRECTIVE LENSES READING GLASSES COGNITIVELY IMPAIRED?NO READINESS TO LEARN?YES LEARNING PREFERENCES?YES :DEMONSTRATION/VERBAL INSTRUCTION LEARNING CAPABILITIES PRESENT?YES EMOTIONAL BARRIERS?NO SPECIAL DEVICES?NO PICKET LABOR UNION NEEDED?NO PAIN CLINIC PFS, CLERGY, PUBLIC HEALTH REFERRALS PFS REFERRAL NEEDED?NO CLERGY REFERRAL NEEDED?NO PUBLIC HEALTH REFERRAL NEEDED?NO WAS THE PROVIDER NOTIFIED OF ANY PERTINENT INFO?YES HAS THE PATIENT BEEN EDUCATED REGARDING HIS/HER PLAN OF CARE?YES HAS THE PATIENT BEEN EDUCATED REGARDING PAIN, THE RISK FOR PAIN, THE IMPORTANCE OF EFFECTIVE PAIN MANAGEMENT, AND THE PAIN ASSESSMENT PROCESS?YES LATEX QUESTIONNAIRE LATEX ALLERGY : HAVE YOU EVER DEVELOPED ANY TYPE OF REACTION AFTER HANDLING LATEX PRODUCTS SUCH RUBBER GLOVES, CONDOMS, DIAPHRAGMS, BALLOONS, SOCKS, OR UNDERWEAR?NO LATEX ALLERGY : HAVE YOU EVER DEVELOPED ANY TYPE OF REACTION DURING OR AFTER DENTAL APPOINTMENT, VAGINAL/RECTAL EXAMINATION, SURGICAL PROCEDURE, OR ANY OTHER EXPOSURE?NO LATEX RISK : HAVE YOU EVER HAD ANY DIFFICULTY BREATHING OR HIVES AFTER EATING OR HANDLING ANY FRUITS, OR VEGETABLES; SUCH KIWI, BANANAS, STONE FRUITS, OR CHESTNUTSNO LATEX RISK : DO YOU HAVE A PREVIOUS PERSONAL HISTORY OF MORE THAN NINE SURGERIES, SPINA BIFIDA, OR REPEATED CATHERIZATIONS? YES - PLEASE INDICATE : > 9 SURGERIES LATEX RISK : ARE YOU FREQUENTLY EXPOSED TO LATEX PRODUCTS IN YOUR OCCUPATION?NO DATE ASKED : 06/30/2019 CAFFEINE CAFFEINE USE?YES 4 CUPS OF COFFEE A DAY ADVANCE DIRECTIVE ADVANCE DIRECTIVE DISCUSSED WITH PATIENT:YES PT. DECLINES INFORMATION, DECLINES ASSISTANCE AT THIS TIME LUTHERAN [id number] ORTHODOX MARITAL STATUS: .. ALCOHOL SCREENING DID YOU HAVE A DRINK CONTAINING ALCOHOL IN THE PAST YEAR?NO POINTS0 INTERPRETATIONNEGATIVE SEXUAL HX HAD SEX IN THE LAST 12 MONTHS (VAGINAL, ORAL, OR ANAL)?: NO, HAVE YOU EVER HAD AN STD?: NO. HOSPITALIZATION/MAJOR DIAGNOSTIC PROCEDURE SURGERY RELATED REVIEW OF SYSTEMS REVIEWED BY: PROVIDER: . CONSTITUTIONAL: ANY CHANGE IN YOUR MEDICAL CONDITION? NO . CHILLS NO . FEVER NO . INFECTION: DO YOU HAVE NEW INFECTIONS? NO . DO YOU HAVE HISTORY OF MRSA? NO . MUSCULOSKELETAL: ANY NEW PATTERNS OF PAIN OR NUMBNESS? YES . GASTROENTEROLOGY: ANY NEW CHANGE IN BOWEL CONTROL? NO . GENITOURINARY: ANY NEW CHANGE IN BLADDER CONTROL? NO . IS THERE A CHANCE YOU COULD BE ? NO . HEMATOLOGY/LYMPH: DO YOU TAKE ANY BLOOD THINNERS? (FOR EXAMPLE- COUMADIN, PLAVIX, AGGRENOX, PLATEL, PRADAXA, OR XARELTO) NO . WHEN WAS YOUR LAST DOSE? DATE: TIME: . NEUROLOGY: HAVE YOU FALLEN IN THE PAST 12 MONTHS? NO . ANY NEW EXTREMITY NUMBNESS OR WEAKNESS? NO . CARDIOLOGY: DO YOU HAVE A PACEMAKER OR DEFIBRILLATOR? NO . RESPIRATORY: HAVE YOU BEEN SICK IN THE PAST WEEK? NO . FEVER NO . FLU LIKE SYMPTOMS? NO . COUGH NO . INTEGUMENTARY: DO YOU HAVE ANY RASHES OR OPEN SORES? NO . ALLERGIC/IMMUNO: ARE YOU ALLERGIC TO IV DYE? NO . ANY NEW ALLERGIES? NO . PSYCHIATRIC: DO YOU HAVE THOUGHTS OF HURTING YOURSELF OR SOMEONE ELSE? NO . ARE YOU ABUSED, NEGLECTED, OR IN AN UNSAFE ENVIRONMENT? NO . ENDOCRINOLOGY: ARE YOU DIABETIC? NO . OTHER: DO YOU NEED ANY PRESCRIPTIONS? NO . IF YES, PLEASE LIST: ____ . ANY NEW PROBLEMS WITH YOUR MEDICATIONS? NO . WHEN DID YOU LAST EAT? 06/30 1AM . WHEN DID YOU LAST DRINK? 06/30 1AM . WHAT DID YOU LAST DRINK? ICE TEA . NAME OF PERSON DRIVING YOU HOME? PAULIE REYES . DO YOU HAVE ANY OTHER QUESTIONS OR CONCERNS NO . VITAL SIGNS WT 233 LBS, HT 64 IN, BMI 39.99 INDEX, BP 151/76 MM HG, HR 68 /MIN, RR 18 /MIN, TEMP 97.0 F, OXYGEN SAT % 95%, SAFE IN ENV? (Y/N) Y, NA INITIALS AW 3917, REVIEWED BY: SANTOS. ASSESSMENTS SPONDYLOSIS OF LUMBAR REGION WITHOUT MYELOPATHY OR RADICULOPATHY - M47.816 (PRIMARY) SPONDYLOSIS OF LUMBOSACRAL REGION WITHOUT MYELOPATHY OR RADICULOPATHY - M47.817 TREATMENT SPONDYLOSIS OF LUMBAR REGION WITHOUT MYELOPATHY OR RADICULOPATHY [facility] FACET BLOCK (PAIN)[id number] PROCEDURES PN LUMBAR FACET BLOCK THERAPEUTIC PRE PROCEDURE DIAGNOSIS LUMBAR SPONDYLOSIS, LUMBOSACRAL SPONDYLOSIS POST PROCEDURE DIAGNOSIS LUMBAR SPONDYLOSIS, LUMBOSACRAL SPONDYLOSIS PROCEDURE BILATERAL L4 - L5, L5 - S1 LUMBAR FACET THERAPEUTIC BLOCK SURGEON DR. JARAD SIMMS COMMUNITY RELATIONS SPECIALIST NONE ANESTHESIA LOCAL PRE PROCEDURE NOTE THE PATIENT HAS A HISTORY OF CHRONIC LOW BACK PAIN. I EVALUATED THE PATIENT AND REVIEWED THE CHART. I WENT OVER THE RISKS, ALTERNATIVES, AND BENEFITS ASSOCIATED WITH THIS PROCEDURE. THE PATIENT WOULD LIKE TO PROCEED AND GIVE CONSENT TO PERFORMED THE PROCEDURE. THE PATIENT DENIES UNEXPLAINABLE WEIGHT LOSS, FEVER, CHILLS, OR NEW CHANGES IN URINARY OR BOWEL CONTROL DESCRIPTION OF PROCEDURE THE PATIENT WAS BROUGHT TO THE PROCEDURE ROOM AND PLACED IN THE PRONE POSITION. THE LUMBOSACRAL AREA WAS CLEANED WITH CHLORAPREP SOLUTION AND DRAPED ASEPTICALLY. THE PROCEDURE WAS DONE UNDER STERILE CONDITIONS. I CHECKED LATERALITY AND THE LEVEL WHERE THE PROCEDURE WAS GOING TO BE PERFORMED WITH THE PATIENT AND THE SUPPORTING STAFF AT THE MOMENT OF THE TIME OUT IN THE PROCEDURE ROOM. UNDER FLUOROSCOPIC GUIDANCE, THE TARGET POINT WAS SELECTED AT THE RIGHT AND LEFT L4-L5 AND RIGHT AND LEFT L5-S1 FACET JOINT. TARGET POINT WAS SELECTED AFTER LATERAL ROTATION AND TILT OF THE MAGNIFIER OF THE C-ARM. LIDOCAINE 0.5% WAS USED TO NUMB THE SKIN AND THE SUBCUTANEOUS TISSUE BELOW IT. SPINAL NEEDLES, 22-GAUGE, WERE ADVANCED UNDER FLUOROSCOPIC GUIDANCE AND FOLLOWING PATIENT FEEDBACK UNTIL THE TARGETS WERE TOUCHED. THE POSITION OF THE NEEDLES WAS VERIFIED WITH AP AND LATERAL VIEWS. AFTER PROPER POSITION OF THE NEEDLES WAS ACHIEVED, ISOVUE M-200 CONTRAST WAS INJECTED SHOWING ADEQUATE SPREAD OF THE DYE. THEN A SOLUTION OF 1.9 ML OF BUPIVACAINE 0.125% OF KENALOG 10 MG WAS INJECTED AT EACH SITE. THERE WAS NO EVIDENCE OF BLOOD, PARESTHESIA OR CEREBROSPINAL FLUID DURING THE PROCEDURE. THE PATIENT WAS SENT TO THE RECOVERY ROOM. THE PATIENT WAS MOVING THE EXTREMITIES AND DOING WELL. THERE WAS NO COMPLICATION DURING THE PROCEDURE. FLUOROSCOPY TIME WAS 43 SECONDS POST PROCEDURE NOTE THE PATIENT WILL BE SEEN IN A FOLLOW UP IN THE NEXT FEW WEEKS. INSTRUCTIONS WERE GIVEN, QUESTIONS WERE ANSWERED, AND THE PATIENT EXPRESSED UNDERSTANDING AND AGREES WITH THE PLAN I, CARMEN SON, DOCUMENTED THE ABOVE INFORMATION ACTING A SCRIBE FOR DR. SIMMS. I HAVE REVIEWED THE ABOVE DOCUMENT, WRITTEN BY CARMEN TAYLOR AND I VERIFY THAT IT IS ACCURATE. PROCEDURE CODES 18212 INJ PARAVERT F JNT L/S 1 LEV, MODIFIERS: 50 40506 INJ PARAVERT F JNT L/S 2 LEV, MODIFIERS: 50 6045F RADXPS IN END [id number] PXD DISPOSITION & COMMUNICATION FOLLOW UP 3 WEEKS ELECTRONICALLY SIGNED BY JARAD SIMMS MD, MD ON 07/05/2019 AT 11:58 AM EDT DISCLAIMER : THIS IS A VISIT SUMMARY EXTRACTED FROM THE [employer] CHART. IT IS NOT A COPY OF THE [employer] PROGRESS NOTE. MTDD
== END ==
LOC: M PAIN 09:45
PROVIDERS: ATTEND Anesthesiology
DX: G89.29 Other chronic pain (principal); M47.816 Spondylosis without myelopathy or radiculopathy, lumbar region; M47.817 Spondylosis without myelopathy or radiculopathy, lumbosacral region; M54.5 Low back pain; I10 Essential (primary) hypertension; Z79.01 Long term (current) use of anticoagulants; Z79.899 Other long term (current) drug therapy; Z98.84 Bariatric surgery status
CPT/HCPCS: 64493; 64494; J3301; Q9966

== ENCOUNTER → 2019-07-29 | Outpatient (CLI) | payer MEDICARE, MEDICAID ==
[~2019-07-29] MED LIST changes: -BUPIVACAINE HCL 0.25% 30 ML VIAL As Ordered ONE; -ISOVUE-M 200 41% 20ML VIAL (Q9966) As Ordered ONE; -LIDOCAINE 1% SDV INJ 30 ML VIAL As Ordered ONE; -TRIAMCINOLONE ACETONIDE SUSP 40 MG/ML VIAL (J3301) As Ordered ONE; -diazePAM 5 MG TAB As Ordered ONE; -oxyCODONE 5MG TAB As Ordered ONE
== END ==
LOC: M PAIN 09:45
PROVIDERS: ATTEND Nurse Practitioner Family
DX: M47.816 Spondylosis without myelopathy or radiculopathy, lumbar region (principal); M47.817 Spondylosis without myelopathy or radiculopathy, lumbosacral region; I10 Essential (primary) hypertension; G25.81 Restless legs syndrome; Z86.59 Personal history of other mental and behavioral disorders; G47.33 Obstructive sleep apnea (adult) (pediatric); Z98.84 Bariatric surgery status; E66.01 Morbid (severe) obesity due to excess calories; Z68.41 Body mass index [BMI] 40.0-44.9, adult; Z79.899 Other long term (current) drug therapy

== ENCOUNTER → 2019-08-27 | Outpatient (CLI) | payer MEDICARE, MEDICAID ==
[2019-08-27 13:38] LABS: FERRITIN 16 NG/ML (8-252); RHEUMATOID FACTOR QUANT < 10.0 IU/ML (<15.0)
[2019-08-27 13:39] LABS: VITAMIN B12 LEVEL 426 PG/ML
[2019-08-27 13:41] LABS: FOLATE 11.2 NG/ML; TOTAL 25(OH) VITAMIN D 19.8 NG/ML (30.0-100.0)
[2019-08-28 14:22] LABS: ANTINUCLEAR ANTIBODIES DIRECT Negative (Negative)
== END ==
LOC: M LAB 12:03
PROVIDERS: ATTEND Psychiatry & Neurology Neurology
DX: R53.83 Other fatigue (principal); Z79.899 Other long term (current) drug therapy

== ENCOUNTER → 2019-08-31 | Outpatient (CLI) | payer MEDICARE, MEDICAID ==
[2019-08-31 14:28] LABS: BLOOD UREA NITROGEN 21 MG/DL (7-18); CALCIUM LEVEL 9.3 MG/DL (8.5-10.1); CARBON DIOXIDE LEVEL 25 MEQ/L (21-32); CHLORIDE LEVEL 112 MEQ/L (98-107); CREATININE FOR GFR 0.86 MG/DL (0.55-1.30); GLOMERULAR FILTRATION RATE > 60.0 (>51); GLUCOSE, FASTING 147 MG/DL (70-100); POTASSIUM SERUM 3.6 MEQ/L (3.5-5.1); SODIUM LEVEL 145 MEQ/L (136-145)
--- NOTE | 2019-09-01 10:33 | ECGEPIP ---
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 No change from 03/02/19 Electronically Signed on 09-01-2019 10:33:37 EDT by Don Llanes
== END ==
LOC: M LAB 12:42
PROVIDERS: ATTEND Orthopaedic Surgery
DX: Z01.818 Encounter for other preprocedural examination (principal); I10 Essential (primary) hypertension; Z79.899 Other long term (current) drug therapy; R94.31 Abnormal electrocardiogram [ECG] [EKG]

== ENCOUNTER → 2019-11-09 | Outpatient (RCR) | payer MEDICARE, MEDICAID ==
[~2019-11-09] MED LIST changes: +ACET300T47 PO; +OMEP-221 PO
== END ==
LOC: M PT 10-13 14:12
PROVIDERS: ATTEND Orthopaedic Surgery
DX: Z47.89 Encounter for other orthopedic aftercare (principal)

== ENCOUNTER 2019-12-09 14:26 | Outpatient (RCR) | payer MEDICARE, MEDICAID | END 2019-12-10 | LOC: M PT 14:26 | PROVIDERS: ATTEND Orthopaedic Surgery | DX: Z47.89 Encounter for other orthopedic aftercare (principal) ==

== ENCOUNTER 2020-01-03 14:30 | Outpatient (RCR) | payer MEDICARE, MEDICAID ==
[~2020-01-03 14:30] MED LIST changes: -ROPI1TAB PO; +ROPI1TAB3 PO
== END 2020-01-08 ==
LOC: M PT 14:30
PROVIDERS: ATTEND Orthopaedic Surgery
DX: Z47.89 Encounter for other orthopedic aftercare (principal)

== ENCOUNTER 2020-02-07 13:45 | Outpatient (RCR) | payer MEDICARE, MEDICAID | END 2020-02-08 | LOC: M PT 13:45 | PROVIDERS: ATTEND Orthopaedic Surgery | DX: Z47.89 Encounter for other orthopedic aftercare (principal) ==

== ENCOUNTER → 2020-02-28 | Outpatient (CLI) | payer MEDICARE, MEDICAID ==
[2020-02-28 13:53] LABS: BASO # 0.1 10^3/uL (0.0-0.2); BASO % 0.8 % (0.0-1.0); EOS # 0.1 10^3/uL (0.0-0.5); EOS % 1.8 % (0.0-3.0); HEMATOCRIT 44.9 % (36.0-47.0); HEMOGLOBIN 14.4 g/dl (12.0-15.5); LYMPH # 2.2 10^3/uL (1.5-5.0); LYMPH % 27.9 % (24.0-44.0); MEAN CORPUSCULAR HEMOGLOBIN 28.1 pg (27.0-33.0); MEAN CORPUSCULAR HGB CONC 32.1 g/dl (32.0-36.5); MEAN CORPUSCULAR VOLUME 87.7 fl (80.0-96.0); MONO # 0.6 10^3/uL (0.0-0.8); MONO % 7.5 % (0.0-5.0); NEUTROPHILS # 4.9 10^3/uL (1.5-8.5); NEUTROPHILS % 61.6 % (36.0-66.0); PLATELET COUNT, AUTOMATED 283 10^3/uL (150-450); RED BLOOD COUNT 5.12 10^6/uL (4.00-5.40)
[2020-02-28 14:18] LABS: PERCENT SATURATION 20.8 % (13.2-45.0)
[2020-02-28 15:32] LABS: THYROID STIMULATING HORMONE 1.72 uIU/ML (0.358-3.740)
== END ==
LOC: M LAB 12:52
PROVIDERS: ATTEND Internal Medicine Hematology
DX: D50.9 Iron deficiency anemia, unspecified (principal)

== ENCOUNTER → 2020-03-07 | Outpatient (CLI) | payer MEDICARE, MEDICAID ==
--- NOTE | 2020-03-09 02:16 | ECWPNPC ---
PATIENT NAME: CHRISTAL AHRRIS : 1960 GENDER: FEMALE VISIT DATE: 03/07/2020 DISCHARGE DATE: 03/07/20 1110 VISIT LOCKED DATE TIME: PHYSICIAN: ANDREIA WALDROP RESOURCE: ANDREIA WALDROP REASON FOR APPOINTMENT 1. 4-6 WEEK PRE PROCEDURE HISTORY OF PRESENT ILLNESS HISTORY OF PRESENT ILLNESS: HERE FOR FOLLOW-UP OF CHRONIC LOW BACK PAIN. HAS BEEN SEVERAL MONTHS SINCE LAST VISIT. HAD RIGHT SHOULDER SURGERY A FEW MONTHS AGO. COMPLAINING OF BURNING PAIN ACROSS LOW BACK, LEFT GREATER THAN RIGHT. PAIN IS AGGRAVATED BY PROLONGED STANDING OR SITTING. REVIEWED MRI OF THE LS SPINE AND DISCUSSED TREATMENT OPTIONS. RATING PAIN VAS 4/10. PAIN THE PATIENT DESCRIBES THE PAIN... FALL RISK SCREENING: SCREENING :NO FALLS REPORTED IN THE LAST YEAR CURRENT MEDICATIONS TAKING CRESTOR 10 MG TABLET 1 TABLET ORALLY ONCE A DAY TAKING IBUPROFEN 800 MG TABLET 1 TABLET WITH FOOD OR MILK NEEDED ORALLY BID PRN TAKING BUSPIRONE HCL 5 MG TABLET 1 TABLET ORALLY BID TAKING VIIBRYD 40 MG TABLET 1 CAP ORALLY DAILY TAKING OMEPRAZOLE 40 MG CAPSULE DELAYED RELEASE 1 CAPSULE ORALLY BID TAKING VITAMIN B12 TR 2000 MCG TABLET EXTENDED RELEASE 1 TABLET ORALLY ONCE A DAY TAKING VITAMIN B1 100 MG TABLET 1 TABLET ORALLY ONCE A DAY TAKING CALCIUM + D3 600-200 MG-UNIT TABLET 1 TABLET WITH A MEAL ORALLY ONCE A DAY TAKING MULTIVITAMIN ADULTS - TABLET DIRECTED ORALLY TAKING GABAPENTIN 300 MG TABLET 1 CAPSULE ORALLY FOR PAIN Q8H TID, NOTES: STATES SHE HAS BEEN USING IT 3 TIMES A DAY TAKING LISINOPRIL 10 MG TABLET 1 TABLET ORALLY ONCE A DAY TAKING VOLTAREN 1 % GEL DIRECTED TRANSDERMAL TAKING MAY HAVE - - IRON INFUSIONS INTRAVENOUSLY Q 6 MOS NOT-TAKING FUROSEMIDE 40 MG TABLET 1 TABLET ORALLY ONCE A DAY NOT-TAKING ROPINIROLE HCL 1 MG TABLET 1 1/2 TABS ORALLY BID NOT-TAKING METHYLPREDNISOLONE (DREW) 4MG USE DIRECTED X 6 DAYS NOT-TAKING PANTOPRAZOLE SODIUM 40 MG TABLET DELAYED RELEASE 1 TABLET ORALLY ONCE A DAY NOT-TAKING VITAMIN D (ERGOCALCIFEROL) 00895 UNIT CAPSULE 1 CAPSULE ORALLY NOT-TAKING GABAPENTIN 100 MG CAPSULE 1 CAPSULE ORALLY ONCE DAILY NEEDED MEDICATION LIST REVIEWED AND RECONCILED WITH THE PATIENT PAST MEDICAL HISTORY HTN ANEMIA OBESITY S/P GASTRIC BYPASS HISTORY OF FLUID RETENTION BLADDER MESH DEGENERATIVE DISC DISEASE RESTLESS LEG SYNDROME DEPRESSION ANXIETY LOW BACK AND LEFT HIP PAIN RADIATING DOWN LEFT LEG TO FOOT KING CYST BILATERAL LAURITA BILATERAL CARPAL TUNNEL BILATERAL LEG WEAKNESS AND PARESTHESIAS AROUND THE KNEE SWELLING IN FEET ALLERGIES N.K.D.A. SURGICAL HISTORY GASTRIC BYPASS 04/27/2008 BREAST REDUCTION 07/05/15 ROTATOR CUFF LEFT 2014 BLADDER REPAIR 1991,05/2003 HEMMORIOD REMOVAL 2014 HYSTERECTOMY 02/1995 GALLBLADDER REMOVED 02/1995 TONSILS REMOVED 1981 JACKELIN REMOVED FROM LEFT SIDE OF FACE 1970 COLON RESECTION FOR COLON CA 2016 RIGHT ROTATOR CUFF REPAIR AND RIGHT BICEP REPAIR 09/2019 FAMILY HISTORY FATHER: , DEPRESSION ,CHF, DIAGNOSED WITH DIABETES, HYPERTENSION, OTHER MALIGNANT NEOPLASM OF UNSPECIFIED SITE, OTHER SPECIFIED CONDITIONS INFLUENCING HEALTH STATUS MOTHER: , RETUM CANCER, OTHER MALIGNANT NEOPLASM OF UNSPECIFIED SITE SIBLINGS: ALIVE, HYPERLIPIDEMIA,HTN,ASTHMA,DEPRESSION 2 SISTER(S) . 2DAUGHTER(S) - HEALTHY. DAD-SKIN CA, HIGH CHOLESTEROL, ? ASTHMA\NMOM-RECTAL CA\NSISTER-ASHTMA, DISABLED DUE TO SPINAL CORD INJURY. SOCIAL HISTORY GENERAL: TOBACCO USE ARE YOU A:NONSMOKER LATEX QUESTIONNAIRE LATEX ALLERGY : HAVE YOU EVER DEVELOPED ANY TYPE OF REACTION AFTER HANDLING LATEX PRODUCTS SUCH RUBBER GLOVES, CONDOMS, DIAPHRAGMS, BALLOONS, SOCKS, OR UNDERWEAR?NO LATEX ALLERGY : HAVE YOU EVER DEVELOPED ANY TYPE OF REACTION DURING OR AFTER DENTAL APPOINTMENT, VAGINAL/RECTAL EXAMINATION, SURGICAL PROCEDURE, OR ANY OTHER EXPOSURE?NO DATE ASKED : 06/30/2019 LATEX RISK : HAVE YOU EVER HAD ANY DIFFICULTY BREATHING OR HIVES AFTER EATING OR HANDLING ANY FRUITS, OR VEGETABLES; SUCH KIWI, BANANAS, STONE FRUITS, OR CHESTNUTSNO LATEX RISK : DO YOU HAVE A PREVIOUS PERSONAL HISTORY OF MORE THAN NINE SURGERIES, SPINA BIFIDA, OR REPEATED CATHERIZATIONS? YES - PLEASE INDICATE : > 9 SURGERIES LATEX RISK : ARE YOU FREQUENTLY EXPOSED TO LATEX PRODUCTS IN YOUR OCCUPATION?NO ALCOHOL SCREENING DID YOU HAVE A DRINK CONTAINING ALCOHOL IN THE PAST YEAR?NO POINTS0 INTERPRETATIONNEGATIVE RECREATIONAL DRUG USE DRUG USE?NO CAFFEINE CAFFEINE USE?YES 4 CUPS OF COFFEE A DAY SEXUAL HX HAD SEX IN THE LAST 12 MONTHS (VAGINAL, ORAL, OR ANAL)?: NO, HAVE YOU EVER HAD AN STD?: NO. SCIENTOLOGY [id number] RELIGIOUS LANGUAGE BULGARIAN. EDUCATION LEVEL OF EDUCATION:FINISHED [employer] DEGREE LEARNING BARRIERS / SPECIAL NEEDS BARRIERS TO LEARNING?NO HEARING IMPAIRED?NO VISION IMPAIRED?YES COGNITIVELY IMPAIRED?NO :CORRECTIVE LENSES READING GLASSES READINESS TO LEARN?YES LEARNING PREFERENCES?YES :DEMONSTRATION/VERBAL INSTRUCTION LEARNING CAPABILITIES PRESENT?YES EMOTIONAL BARRIERS?NO SPECIAL DEVICES?NO NETWORK DIAGNOSTIC SUPPORT SPECIALIST NEEDED?NO DOMESTIC VIOLENCE NONE. DIET: REGULAR. EXERCISE: WALKS. MARITAL STATUS: .. OTHERS AT HOME: BOYFRIEND. NEW PATIENT PAIN DIARY PATIENT DESCRIBES PAIN :BURNING, HAVE IT ALL THE TIME 03/07/20 FROM 0-10, WHAT LEVEL IS YOUR PAIN TODAY?4 PRECIPITATING FACTORS SITTING OR STANDING TOO LONG. WORSE AT NIGHT ALLEVIATING FACTORS BIOFREEZE, JUAN MANUEL IMPACT ON FUNCTION CAN'T DO MUCH OF ANYTHING PAIN CLINIC PFS, CLERGY, PUBLIC HEALTH REFERRALS PFS REFERRAL NEEDED?NO CLERGY REFERRAL NEEDED?NO PUBLIC HEALTH REFERRAL NEEDED?NO WAS THE PROVIDER NOTIFIED OF ANY PERTINENT INFO?YES HAS THE PATIENT BEEN EDUCATED REGARDING HIS/HER PLAN OF CARE?YES HAS THE PATIENT BEEN EDUCATED REGARDING PAIN, THE RISK FOR PAIN, THE IMPORTANCE OF EFFECTIVE PAIN MANAGEMENT, AND THE PAIN ASSESSMENT PROCESS?YES ADVANCE DIRECTIVE ADVANCE DIRECTIVE DISCUSSED WITH PATIENT:YES PT. DECLINES INFORMATION, DECLINES ASSISTANCE AT THIS TIME REVIEWED WITH PT 07/29/19 1017 NLJ. HOSPITALIZATION/MAJOR DIAGNOSTIC PROCEDURE SURGERY RELATED REVIEW OF SYSTEMS REVIEWED BY: PROVIDER: ANDREIA GONZALES . CONSTITUTIONAL: ANY CHANGE IN YOUR MEDICAL CONDITION? NO . CHILLS NO . FEVER NO . INFECTION: DO YOU HAVE NEW INFECTIONS? NO . DO YOU HAVE HISTORY OF MRSA? NO . MUSCULOSKELETAL: ANY NEW PATTERNS OF PAIN OR NUMBNESS? NO . GASTROENTEROLOGY: ANY NEW CHANGE IN BOWEL CONTROL? NO . GENITOURINARY: ANY NEW CHANGE IN BLADDER CONTROL? NO . IS THERE A CHANCE YOU COULD BE ? NO . HEMATOLOGY/LYMPH: DO YOU TAKE ANY BLOOD THINNERS? (FOR EXAMPLE- COUMADIN, PLAVIX, AGGRENOX, PLATEL, PRADAXA, OR XARELTO) NO . WHEN WAS YOUR LAST DOSE? DATE: TIME: . NEUROLOGY: HAVE YOU FALLEN IN THE PAST 12 MONTHS? NO . ANY NEW EXTREMITY NUMBNESS OR WEAKNESS? NO . CARDIOLOGY: DO YOU HAVE A PACEMAKER OR DEFIBRILLATOR? NO . RESPIRATORY: HAVE YOU BEEN SICK IN THE PAST WEEK? NO . FEVER NO . FLU LIKE SYMPTOMS? NO . COUGH NO . INTEGUMENTARY: DO YOU HAVE ANY RASHES OR OPEN SORES? NO . ALLERGIC/IMMUNO: ARE YOU ALLERGIC TO IV DYE? NO . ANY NEW ALLERGIES? NO . PSYCHIATRIC: DO YOU HAVE THOUGHTS OF HURTING YOURSELF OR SOMEONE ELSE? NO . ARE YOU ABUSED, NEGLECTED, OR IN AN UNSAFE ENVIRONMENT? VERBALLY, SPOKE WITH ANDREIA ABOUT THIS . ENDOCRINOLOGY: ARE YOU DIABETIC? NO . OTHER: DO YOU NEED ANY PRESCRIPTIONS? NO . IF YES, PLEASE LIST: ____ . ANY NEW PROBLEMS WITH YOUR MEDICATIONS? NO . WHEN DID YOU LAST EAT? ____ . WHEN DID YOU LAST DRINK? ____ . WHAT DID YOU LAST DRINK? ____ . NAME OF PERSON DRIVING YOU HOME? ____ . DO YOU HAVE ANY OTHER QUESTIONS OR CONCERNS NO . VITAL SIGNS WT 237.2 LBS, HT 64 IN, BMI 40.71 INDEX, BP 152/87 MM HG, HR 98 /MIN, RR 18 /MIN, TEMP 97.7 F, OXYGEN SAT % 98%, NA INITIALS AW 1020, REVIEWED BY: MEDHAT. EXAMINATION GENERAL EXAMINATION: GENERALALERT . PSYCHAFFECT NORMAL . LUNGS:LUNG SOUNDS ARE CLEAR . HEART:HEART RATE REGULAR . MUSCULOSKELETAL:MST TESTING IS SLIGHTLY WEAK OVER LEFT LEG COMPARED WITH RIGHT. . LUMBAR:TENDER OVER LUMBAR FACETS L>R SPECIFIC LEFT SIJ PAIN NOTED WITH PALPATION. . NEUROLOGIC EXAM:NORMAL SENSATION TO LIGHT TOUCH BILAT. LOWER EXTREMITIES . DIAGNOSTIC TESTS REVIEWEDMRI L/S SPINE-05/01/18. ASSESSMENTS SACROILIITIS - M46.1 (PRIMARY) TREATMENT SACROILIITIS NOTES: LEFT SIJ. OTHERS NOTES: SACROILIAC JOINT PAIN MATERIAL WAS PRINTED. PROCEDURE CODES FA211 ESTABILISHED PATIENT [facility] CHARGE DISPOSITION & COMMUNICATION FOLLOW UP POST (REASON: LEFT SIJ) ELECTRONICALLY SIGNED BY JANET OWENS ON 03/08/2020 AT 02:25 PM EDT DISCLAIMER : THIS IS A VISIT SUMMARY EXTRACTED FROM THE [employer] CHART. IT IS NOT A COPY OF THE [employer] PROGRESS NOTE. AYUSH
== END ==
LOC: M PAIN 10:15
PROVIDERS: ATTEND Nurse Practitioner Family
DX: M46.1 Sacroiliitis, not elsewhere classified (principal); I10 Essential (primary) hypertension; Z79.02 Long term (current) use of antithrombotics/antiplatelets; Z79.899 Other long term (current) drug therapy; Z98.84 Bariatric surgery status

== ENCOUNTER → 2020-03-09 | Outpatient (RCR) | payer MEDICARE, MEDICAID | LOC: M PT 02-10 10:39 | PROVIDERS: ATTEND Orthopaedic Surgery | DX: M75.101 Unspecified rotator cuff tear or rupture of right shoulder, not specified as traumatic (principal) ==

== ENCOUNTER → 2020-03-18 | Outpatient (CLI) | payer MEDICARE, MEDICAID | LOC: M LABSMTC 09:47 | PROVIDERS: ATTEND Anesthesiology | DX: Z11.59 Encounter for screening for other viral diseases (principal) | CPT/HCPCS: C9803; U0002 ==

== ENCOUNTER → 2020-03-21 | Outpatient (CLI) | payer MEDICARE, MEDICAID ==
[~2020-03-21] MED LIST changes: +ASPI81CH8 PO; +BUPIVACAINE HCL 0.25% 30ML VIAL As Ordered ONE; +CALTCHW5 PO; +EQL50TAB2 PO; +GABA-282 PO; -GABA-843 PO; +ISOVUE-M 300 61% 15ML VIAL As Ordered ONE; +LIDOCAINE 1% SDV 30ML VIAL As Ordered ONE; +LISI10TA22 PO; +MULT-90 PO; +MULTCAP PO; +PANT40TA29 PO; -PANT40TA3 PO; +VITA200031 PO; +dexameTHASONE 10MG/1ML VIAL PRES.FREE (J1100 PER 1MG) As Ordered ONE; +diazePAM 5MG TABLET As Ordered ONE; +oxyCODONE 5MG TAB As Ordered ONE
--- NOTE | 2020-03-21 13:41 | REP ---
C-arm views left sacroiliac joint. CLINICAL HISTORY: Pain. Three C-arm views of the left sacroiliac joint performed. Injection is performed by Dr. Carl. A needle is seen overlying the left sacroiliac joint. A small amount of contrast is injected. 25 seconds of fluoroscopy time utilized. Electronically Signed by Jose Juan Robledo MD 03/21/2020 01:52 P
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
== END ==
LOC: M PAIN 11:15
PROVIDERS: ATTEND Anesthesiology
DX: M46.1 Sacroiliitis, not elsewhere classified (principal); M53.3 Sacrococcygeal disorders, not elsewhere classified; I10 Essential (primary) hypertension; G25.81 Restless legs syndrome; Z86.59 Personal history of other mental and behavioral disorders; G47.33 Obstructive sleep apnea (adult) (pediatric); Z98.84 Bariatric surgery status; E66.01 Morbid (severe) obesity due to excess calories; Z68.41 Body mass index [BMI] 40.0-44.9, adult; Z79.899 Other long term (current) drug therapy
CPT/HCPCS: G0260; J1100; Q9967

== ENCOUNTER 2020-04-04 12:53 | Outpatient (RCR) | payer MEDICARE, MEDICAID | END 2020-04-09 | LOC: M PT 12:53 | PROVIDERS: ATTEND Orthopaedic Surgery | DX: Z47.89 Encounter for other orthopedic aftercare (principal); M75.101 Unspecified rotator cuff tear or rupture of right shoulder, not specified as traumatic; Z98.890 Other specified postprocedural states ==

== ENCOUNTER → 2020-04-04 | Outpatient (CLI) | payer MEDICARE, MEDICAID ==
[~2020-04-04] MED LIST changes: -ASPI81CH8 PO; -BUPIVACAINE HCL 0.25% 30ML VIAL As Ordered ONE; -CALTCHW5 PO; -EQL50TAB2 PO; -GABA-282 PO; +GABA-843 PO; -ISOVUE-M 300 61% 15ML VIAL As Ordered ONE; -LIDOCAINE 1% SDV 30ML VIAL As Ordered ONE; -LISI10TA22 PO; -MULT-90 PO; -MULTCAP PO; -PANT40TA29 PO; +PANT40TA3 PO; -VITA200031 PO; -dexameTHASONE 10MG/1ML VIAL PRES.FREE (J1100 PER 1MG) As Ordered ONE; -diazePAM 5MG TABLET As Ordered ONE; -oxyCODONE 5MG TAB As Ordered ONE
--- NOTE | 2020-04-07 03:03 | ECWPNPC ---
PATIENT NAME: CHRISTAL HARRIS : 1960 GENDER: FEMALE VISIT DATE: 04/04/2020 DISCHARGE DATE: 04/04/20 1505 VISIT LOCKED DATE TIME: PHYSICIAN: ANDREIA WALDROP RESOURCE: ANDREIA WALDROP REASON FOR APPOINTMENT 1. POST PROC HISTORY OF PRESENT ILLNESS GENERAL: HERE FOR POST PROCEDURE FOLLOW-UP. HAD LEFT SIJ ON 03/21/2020. REPORTING SIGNIFICANT REDUCTION IN PAIN POST PROCEDURE. PAIN ON THE LEFT SIDE IS 0/10 SINCE PROCEDURE. HAVING MORE PAIN ON THE RIGHT LOW BACK AREA. REVIEWED MRI AND DISCUSSED TREATMENT OPTIONS. RATING RIGHT-SIDED LOW BACK PAIN A 3/10 VAS. -. FALL RISK SCREENING: SCREENING :NO FALLS REPORTED IN THE LAST YEAR PAIN SCREENING: PATIENT HAS A COMPLAINT OF ACUTE OR CHRONIC PAIN :NO NURSING NOTE: -. PAIN CENTER INTAKE QUESTIONS: DO YOU HAVE A HISTORY OF MRSA? :NO DO YOU TAKE A BLOOD THINNERS? :NO DO YOU HAVE ANY BLEEDING DISORDERS? :NO ANY NEW NUMBNESS OR WEAKNESS IN YOUR LEGS OR ARMS? :NO ANY PACEMAKER,DEFIBRILLATOR, OR DORSAL COLUMN STIMULATOR? :NO DO YOU HAVE ANY RASHES OR OPEN SORES? :NO ARE YOU ALLERGIC TO IV DYE? :NO ARE YOU DIABETIC? :NO ANY NEW PROBLEMS WITH YOUR MEDICATIONS? :NO HAVE YOU RECEIVED A VACCINE IN THE PAST 30 DAYS? :NO DO YOU PLAN TO RECEIVE A VACCINE IN THE NEXT 21 DAYS? :NO DO YOU NEED ANY PRESCRIPTION? :NO DO YOU TAKE ANY IMMUNOSUPPRESSIVE MEDICATIONS? :NO CURRENT MEDICATIONS TAKING CRESTOR 10 MG TABLET 1 TABLET ORALLY ONCE A DAY TAKING IBUPROFEN 800 MG TABLET 1 TABLET WITH FOOD OR MILK NEEDED ORALLY BID PRN TAKING BUSPIRONE HCL 5 MG TABLET 1 TABLET ORALLY BID TAKING VIIBRYD 40 MG TABLET 1 CAP ORALLY DAILY TAKING OMEPRAZOLE 40 MG CAPSULE DELAYED RELEASE 1 CAPSULE ORALLY BID TAKING VITAMIN B12 TR 2000 MCG TABLET EXTENDED RELEASE 1 TABLET ORALLY ONCE A DAY TAKING VITAMIN B1 100 MG TABLET 1 TABLET ORALLY ONCE A DAY TAKING CALCIUM + D3 600-200 MG-UNIT TABLET 1 TABLET WITH A MEAL ORALLY ONCE A DAY TAKING MULTIVITAMIN ADULTS - TABLET DIRECTED ORALLY TAKING GABAPENTIN 300 MG TABLET 1 CAPSULE ORALLY FOR PAIN Q8H TID, NOTES: STATES SHE HAS BEEN USING IT 3 TIMES A DAY TAKING LISINOPRIL 10 MG TABLET 1 TABLET ORALLY ONCE A DAY TAKING VOLTAREN 1 % GEL DIRECTED TRANSDERMAL TAKING MAY HAVE - - IRON INFUSIONS INTRAVENOUSLY Q 6 MOS NOT-TAKING FUROSEMIDE 40 MG TABLET 1 TABLET ORALLY ONCE A DAY NOT-TAKING ROPINIROLE HCL 1 MG TABLET 1 1/2 TABS ORALLY BID NOT-TAKING METHYLPREDNISOLONE (DREW) 4MG USE DIRECTED X 6 DAYS NOT-TAKING PANTOPRAZOLE SODIUM 40 MG TABLET DELAYED RELEASE 1 TABLET ORALLY ONCE A DAY NOT-TAKING VITAMIN D (ERGOCALCIFEROL) [id number] UNIT CAPSULE 1 CAPSULE ORALLY NOT-TAKING GABAPENTIN 100 MG CAPSULE 1 CAPSULE ORALLY ONCE DAILY NEEDED MEDICATION LIST REVIEWED AND RECONCILED WITH THE PATIENT PAST MEDICAL HISTORY HTN ANEMIA OBESITY S/P GASTRIC BYPASS HISTORY OF FLUID RETENTION BLADDER MESH DEGENERATIVE DISC DISEASE RESTLESS LEG SYNDROME DEPRESSION ANXIETY LOW BACK AND LEFT HIP PAIN RADIATING DOWN LEFT LEG TO FOOT KING CYST BILATERAL LAURITA BILATERAL CARPAL TUNNEL BILATERAL LEG WEAKNESS AND PARESTHESIAS AROUND THE KNEE SWELLING IN FEET ALLERGIES N.K.D.A. SURGICAL HISTORY GASTRIC BYPASS 04/27/2008 BREAST REDUCTION 07/05/15 ROTATOR CUFF LEFT 2014 BLADDER REPAIR 1991,05/2003 HEMMORIOD REMOVAL 2014 HYSTERECTOMY 02/1995 GALLBLADDER REMOVED 02/1995 TONSILS REMOVED 1981 JACKELIN REMOVED FROM LEFT SIDE OF FACE 1970 COLON RESECTION FOR COLON CA 2016 RIGHT ROTATOR CUFF REPAIR AND RIGHT BICEP REPAIR 09/2019 FAMILY HISTORY FATHER: , DEPRESSION ,CHF, DIAGNOSED WITH DIABETES, HYPERTENSION, OTHER MALIGNANT NEOPLASM OF UNSPECIFIED SITE, OTHER SPECIFIED CONDITIONS INFLUENCING HEALTH STATUS MOTHER: , RETUM CANCER, OTHER MALIGNANT NEOPLASM OF UNSPECIFIED SITE SIBLINGS: ALIVE, HYPERLIPIDEMIA,HTN,ASTHMA,DEPRESSION 2 SISTER(S) . 2DAUGHTER(S) - HEALTHY. DAD-SKIN CA, HIGH CHOLESTEROL, ? ASTHMA\NMOM-RECTAL CA\NSISTER-ASHTMA, DISABLED DUE TO SPINAL CORD INJURY. SOCIAL HISTORY GENERAL: TOBACCO USE ARE YOU A:NONSMOKER LATEX QUESTIONNAIRE LATEX ALLERGY : HAVE YOU EVER DEVELOPED ANY TYPE OF REACTION AFTER HANDLING LATEX PRODUCTS SUCH RUBBER GLOVES, CONDOMS, DIAPHRAGMS, BALLOONS, SOCKS, OR UNDERWEAR?NO LATEX ALLERGY : HAVE YOU EVER DEVELOPED ANY TYPE OF REACTION DURING OR AFTER DENTAL APPOINTMENT, VAGINAL/RECTAL EXAMINATION, SURGICAL PROCEDURE, OR ANY OTHER EXPOSURE?NO DATE ASKED : 03/20/2020 LATEX RISK : HAVE YOU EVER HAD ANY DIFFICULTY BREATHING OR HIVES AFTER EATING OR HANDLING ANY FRUITS, OR VEGETABLES; SUCH KIWI, BANANAS, STONE FRUITS, OR CHESTNUTSNO LATEX RISK : DO YOU HAVE A PREVIOUS PERSONAL HISTORY OF MORE THAN NINE SURGERIES, SPINA BIFIDA, OR REPEATED CATHERIZATIONS? YES - PLEASE INDICATE : > 9 SURGERIES LATEX RISK : ARE YOU FREQUENTLY EXPOSED TO LATEX PRODUCTS IN YOUR OCCUPATION?NO ALCOHOL SCREENING DID YOU HAVE A DRINK CONTAINING ALCOHOL IN THE PAST YEAR?NO POINTS0 INTERPRETATIONNEGATIVE RECREATIONAL DRUG USE DRUG USE?NO CAFFEINE CAFFEINE USE?YES 4 CUPS OF COFFEE A DAY SEXUAL HX HAD SEX IN THE LAST 12 MONTHS (VAGINAL, ORAL, OR ANAL)?: NO, HAVE YOU EVER HAD AN STD?: NO. SABIANIST [id number] RELIGIOUS LANGUAGE POLISH. EDUCATION LEVEL OF EDUCATION:FINISHED [employer] DEGREE LEARNING BARRIERS / SPECIAL NEEDS BARRIERS TO LEARNING?NO HEARING IMPAIRED?NO VISION IMPAIRED?YES COGNITIVELY IMPAIRED?NO :CORRECTIVE LENSES READING GLASSES READINESS TO LEARN?YES LEARNING PREFERENCES?YES :DEMONSTRATION/VERBAL INSTRUCTION LEARNING CAPABILITIES PRESENT?YES EMOTIONAL BARRIERS?NO SPECIAL DEVICES?NO SUPERANNUATION FUNDS MANAGER NEEDED?NO DOMESTIC VIOLENCE NONE. DIET: REGULAR. EXERCISE: WALKS. MARITAL STATUS: .. OTHERS AT HOME: BOYFRIEND. NEW PATIENT PAIN DIARY TODAY'S VISIT 03/20/2020 PATIENT DESCRIBES PAIN :BURNING, HAVE IT ALL THE TIME FROM 0-10, WHAT LEVEL IS YOUR PAIN TODAY?3 PRECIPITATING FACTORS SITTING OR STANDING TOO LONG. WORSE AT NIGHT ALLEVIATING FACTORS BIOFREEZE, JUAN MANUEL IMPACT ON FUNCTION CAN'T DO MUCH OF ANYTHING PAIN CLINIC PFS, CLERGY, PUBLIC HEALTH REFERRALS PFS REFERRAL NEEDED?NO CLERGY REFERRAL NEEDED?NO PUBLIC HEALTH REFERRAL NEEDED?NO WAS THE PROVIDER NOTIFIED OF ANY PERTINENT INFO?YES HAS THE PATIENT BEEN EDUCATED REGARDING HIS/HER PLAN OF CARE?YES HAS THE PATIENT BEEN EDUCATED REGARDING PAIN, THE RISK FOR PAIN, THE IMPORTANCE OF EFFECTIVE PAIN MANAGEMENT, AND THE PAIN ASSESSMENT PROCESS?YES ADVANCE DIRECTIVE ADVANCE DIRECTIVE DISCUSSED WITH PATIENT:YES PT. DECLINES INFORMATION, DECLINES ASSISTANCE AT THIS TIME HOSPITALIZATION/MAJOR DIAGNOSTIC PROCEDURE SURGERY RELATED REVIEW OF SYSTEMS FOLLOW-UP ROS: CARDIOLOGY: NO CHEST PAIN, PALPITATIONS, ORTHOPNEA/PND . NO GENERAL:, NO FEVERS, CHILLS, NIGHT SWEATS, CHANGES IN WEIGHT OR GENERALIZED FATIGUE. . NO PULMONOLOGY:, NEGATIVE FOR COUGH, CHANGE IN DYSPNEA, PLEURITIC CHEST PAIN . VITAL SIGNS WT 239.0 LBS, HT 64 IN, BMI 41.02 INDEX, BP 139/70 MM HG, HR 69 /MIN, RR 19 /MIN, TEMP 96.9 F, OXYGEN SAT % 97%, SAFE IN ENV? (Y/N) Y, NA INITIALS MS 1415, REVIEWED BY: EM. EXAMINATION GENERAL EXAMINATION: GENERALALERT . PSYCHAFFECT NORMAL . LUNGS:LUNG SOUNDS ARE CLEAR . HEART:HEART RATE REGULAR . LUMBAR: SPECIFIC RIGHT SIJ PAIN NOTED WITH PALPATION. POSITIVE NA'S TESTING OVER RIGHT LEG.. NEUROLOGIC EXAM:NORMAL SENSATION TO LIGHT TOUCH BILAT. LOWER EXTREMITIES . DIAGNOSTIC TESTS REVIEWEDMRI L/S SPINE-05/01/18. ASSESSMENTS SACROILIITIS - M46.1 (PRIMARY) TREATMENT SACROILIITIS NOTES: RIGHT SIJ. PROCEDURE CODES FA211 ESTABILISHED PATIENT [facility] FACILITY CHARGE DISPOSITION & COMMUNICATION FOLLOW UP POST (REASON: RIGHT SIJ) ELECTRONICALLY SIGNED BY JANET OWENS ON 04/06/2020 AT 03:38 PM EDT DISCLAIMER : THIS IS A VISIT SUMMARY EXTRACTED FROM THE [employer] CHART. IT IS NOT A COPY OF THE [employer] PROGRESS NOTE. AYUSH
== END ==
LOC: M PAIN 14:15
PROVIDERS: ATTEND Nurse Practitioner Family
DX: M46.1 Sacroiliitis, not elsewhere classified (principal)

== ENCOUNTER → 2020-05-05 | Outpatient (CLI) | payer MEDICARE, MEDICAID ==
[2020-05-05 12:12] LABS: HEMATOCRIT 41.4 % (36.0-47.0); HEMOGLOBIN 12.9 g/dl (12.0-15.5); MEAN CORPUSCULAR HEMOGLOBIN 27.9 pg (27.0-33.0); MEAN CORPUSCULAR HGB CONC 31.2 g/dl (32.0-36.5); MEAN CORPUSCULAR VOLUME 89.6 fl (80.0-96.0); PLATELET COUNT, AUTOMATED 247 10^3/uL (150-450); RED BLOOD COUNT 4.62 10^6/uL (4.00-5.40); WHITE BLOOD COUNT 6.8 10^3/uL (4.0-10.0)
[2020-05-05 12:44] LABS: ALBUMIN 3.9 GM/DL (3.2-5.2); ALT/SGPT 35 U/L (12-78); BILIRUBIN,TOTAL 0.6 MG/DL (0.2-1.0); BLOOD UREA NITROGEN 13 MG/DL (7-18); CALCIUM LEVEL 9.3 MG/DL (8.5-10.1); CARBON DIOXIDE LEVEL 28 MEQ/L (21-32); CHLORIDE LEVEL 107 MEQ/L (98-107); CHOLESTEROL LEVEL 176 MG/DL (<200); CHOLESTEROL RISK RATIO 2.933 (<5); CPK CREATINE PHOSPHOKINASE 91 U/L (26-192); CREATININE FOR GFR 0.74 MG/DL (0.55-1.30); FERRITIN 88 NG/ML (8-252); GLOMERULAR FILTRATION RATE > 60.0 (>51); GLUCOSE, FASTING 103 MG/DL (70-100); HDL CHOLESTEROL 60 MG/DL (>40); IRON (FE) 81 UG/DL (50-170); LDL CHOLESTEROL 71 MG/DL (<100); NON-HDL-C 116 MG/DL; PERCENT SATURATION 20.4 % (13.2-45.0); POTASSIUM SERUM 4.1 MEQ/L (3.5-5.1); SODIUM LEVEL 142 MEQ/L (136-145); TOTAL IRON BINDING CAPACITY 397 UG/DL (250-450); TOTAL PROTEIN 7.1 GM/DL (6.4-8.2); TRIGLYCERIDES LEVEL 226 MG/DL (<150)
== END ==
LOC: M LAB 10:51
PROVIDERS: ATTEND Nurse Practitioner Family
DX: I10 Essential (primary) hypertension (principal); D50.9 Iron deficiency anemia, unspecified

== ENCOUNTER → 2020-06-23 | Outpatient (CLI) | payer MEDICARE, MEDICAID ==
[~2020-06-23] MED LIST changes: +BUSP10TA; +EQL50TAB2 PO; +LISI10TA4 PO; +MULTCAP PO; +PANT40TA29 PO; -PANT40TA3 PO; +VITA200031 PO
[2020-08-03 16:19] LABS: PERCENT SATURATION 16.9 % (13.2-45.0); THYROID STIMULATING HORMONE 2.24 uIU/ML (0.358-3.740)
[2020-08-03 16:21] LABS: BASO % 0.6 % (0.0-1.0); EOS # 0.1 10^3/uL (0.0-0.5); EOS % 2.1 % (0.0-3.0); HEMATOCRIT 40.8 % (36.0-47.0); HEMOGLOBIN 13.1 g/dl (12.0-15.5); LYMPH # 2.1 10^3/uL (1.5-5.0); LYMPH % 30.4 % (24.0-44.0); MEAN CORPUSCULAR HEMOGLOBIN 28.9 pg (27.0-33.0); MEAN CORPUSCULAR HGB CONC 32.1 g/dl (32.0-36.5); MEAN CORPUSCULAR VOLUME 90.1 fl (80.0-96.0); MONO # 0.5 10^3/uL (0.0-0.8); MONO % 7.6 % (0.0-5.0); NEUTROPHILS % 58.9 % (36.0-66.0); PLATELET COUNT, AUTOMATED 244 10^3/uL (150-450); RED BLOOD COUNT 4.53 10^6/uL (4.00-5.40); WHITE BLOOD COUNT 6.7 10^3/uL (4.0-10.0)
== END ==
LOC: M LAB 10:31
PROVIDERS: ATTEND Internal Medicine Hematology
DX: D50.9 Iron deficiency anemia, unspecified (principal); Z79.899 Other long term (current) drug therapy

== ENCOUNTER → 2020-07-24 | Outpatient (CLI) | payer MEDICARE, MEDICAID | LOC: M PAIN 13:42 | PROVIDERS: ATTEND Nurse Practitioner Family | DX: M46.1 Sacroiliitis, not elsewhere classified (principal) | CPT/HCPCS: G0463 ×2 ==

== ENCOUNTER → 2020-08-10 | Outpatient (CLI) | payer MEDICARE, MEDICAID | LOC: M LABSMTC 09:33 | PROVIDERS: ATTEND Anesthesiology | DX: Z20.828 Contact with and (suspected) exposure to other viral communicable diseases (principal) | CPT/HCPCS: C9803; U0003 ==

== ENCOUNTER → 2020-08-14 | Outpatient (CLI) | payer MEDICARE, MEDICAID ==
[2020-08-14 10:56] LABS: HEMATOCRIT 38.3 % (36.0-47.0); HEMOGLOBIN 12.1 g/dl (12.0-15.5); MEAN CORPUSCULAR HEMOGLOBIN 28.1 pg (27.0-33.0); MEAN CORPUSCULAR HGB CONC 31.6 g/dl (32.0-36.5); MEAN CORPUSCULAR VOLUME 89.1 fl (80.0-96.0); PLATELET COUNT, AUTOMATED 218 10^3/uL (150-450); WHITE BLOOD COUNT 5.6 10^3/uL (4.0-10.0)
[2020-08-14 11:25] LABS: ALT/SGPT 28 U/L (12-78); BILIRUBIN,TOTAL 0.6 MG/DL (0.2-1.0); BLOOD UREA NITROGEN 13 MG/DL (7-18); CALCIUM LEVEL 9.2 MG/DL (8.8-10.2); CARBON DIOXIDE LEVEL 29 MEQ/L (21-32); CHLORIDE LEVEL 111 MEQ/L (98-107); CHOLESTEROL LEVEL 195 MG/DL (<200); CHOLESTEROL RISK RATIO 3.145 (<5); CPK CREATINE PHOSPHOKINASE 82 U/L (26-192); CREATININE FOR GFR 0.72 MG/DL (0.55-1.30); GLOMERULAR FILTRATION RATE > 60.0 (>45); GLUCOSE, FASTING 106 MG/DL (70-100); HDL CHOLESTEROL 62 MG/DL (>40); LDL CHOLESTEROL 96 MG/DL (<100); NON-HDL-C 133 MG/DL; POTASSIUM SERUM 4.5 MEQ/L (3.5-5.1); SODIUM LEVEL 144 MEQ/L (136-145); TRIGLYCERIDES LEVEL 184 MG/DL (<150)
== END ==
LOC: M LAB 10:05
PROVIDERS: ATTEND Nurse Practitioner Family
DX: E78.5 Hyperlipidemia, unspecified (principal); I10 Essential (primary) hypertension

== ENCOUNTER → 2020-08-15 | Outpatient (CLI) | payer MEDICARE, MEDICAID ==
[~2020-08-15] MED LIST changes: +BUPIVACAINE HCL 0.25% 30ML VIAL As Ordered ONE; +ISOVUE-M 300 61% 15ML VIAL As Ordered ONE; +LIDOCAINE 1% SDV 30ML VIAL As Ordered ONE; +TRIAMCINOLONE ACETONIDE SUSP 40 MG/ML VIAL (J3301) As Ordered ONE; +diazePAM 5 MG TAB As Ordered ONE; +oxyCODONE 5MG TAB As Ordered ONE
--- NOTE | 2020-08-16 12:27 | ECWPNPC ---
PATIENT NAME: CHRISTAL HARRIS : 1960 GENDER: FEMALE VISIT DATE: 08/15/2020 DISCHARGE DATE: 08/15/20 1054 VISIT LOCKED DATE TIME: PHYSICIAN: JARAD SIMMS MD RESOURCE: JARAD SIMMS MD REASON FOR APPOINTMENT 1. BILATERAL SIJ HISTORY OF PRESENT ILLNESS PAIN CENTER INTAKE QUESTIONS: DO YOU HAVE A HISTORY OF MRSA? :NO DO YOU TAKE A BLOOD THINNERS? :NO DO YOU HAVE ANY BLEEDING DISORDERS? :NO ANY NEW NUMBNESS OR WEAKNESS IN YOUR LEGS OR ARMS? :YES LEFT LEG AND INTO FOOT H/O NEUROPATHY ANY PACEMAKER,DEFIBRILLATOR, OR DORSAL COLUMN STIMULATOR? :NO DO YOU HAVE ANY RASHES OR OPEN SORES? :NO ARE YOU ALLERGIC TO IV DYE? :NO ARE YOU DIABETIC? :NO ANY NEW PROBLEMS WITH YOUR MEDICATIONS? :NO HAVE YOU RECEIVED A VACCINE IN THE PAST 30 DAYS? :NO DO YOU PLAN TO RECEIVE A VACCINE IN THE NEXT 21 DAYS? :NO DO YOU TAKE ANY IMMUNOSUPPRESSIVE MEDICATIONS? :NO ANY HISTORY OF SEIZURES? :NO ANY HISTORY OF CARDIAC ISSUES OR EVENTS? :NO DO YOU HAVE SLEEP APNEA? :YES DO YOU WEAR A CPAP?YES ANY RECENT HEAD INJURY? :NO DO YOU HAVE ANY NEW INFECTIONS? :NO IS THERE A CHANCE YOU COULD BE ? :NO ARE YOU BREAST FEEDING? :NO WHEN DID YOU LAST EAT? : -2400 08/14/20 WHEN DID YOU LAST DRINK? : -08/14/20 240 WHAT DID YOU LAST DRINK? : -COFFEE NAME OF PERSON DRIVING YOU HOME? : DANN REYES () DO YOU HAVE ANY OTHER QUESTIONS OR CONCERNS? : -NO GENERAL: -. FALL RISK SCREENING: SCREENING :NO FALLS REPORTED IN THE LAST YEAR PAIN SCREENING: PATIENT HAS A COMPLAINT OF ACUTE OR CHRONIC PAIN :YES LOCATION OF PAIN:LOW BACK INTENSITY OF PAIN (SCALE OF 1 TO 10):8 WHAT DOES YOUR PAIN FEEL LIKE:ACHING DURATION:INTERMITTENT NURSING NOTE: -. CURRENT MEDICATIONS TAKING CRESTOR 10 MG TABLET 1 TABLET ORALLY ONCE A DAY, NOTES: 08/14/20 09 TAKING BUSPIRONE HCL 5 MG TABLET 1 TABLET ORALLY BID, NOTES: 08/14/20 09 TAKING VIIBRYD 40 MG TABLET 1 CAP ORALLY DAILY, NOTES: 08/14/20 09 TAKING OMEPRAZOLE 40 MG CAPSULE DELAYED RELEASE 1 CAPSULE ORALLY BID, NOTES: 2-3 DAYS AGO TAKING VITAMIN B12 TR 2000 MCG TABLET EXTENDED RELEASE 1 TABLET ORALLY ONCE A DAY, NOTES: 2-3 DAYS AGO TAKING VITAMIN B1 100 MG TABLET 1 TABLET ORALLY ONCE A DAY, NOTES: 2-3 DAYS AGO TAKING CALCIUM + D3 600-200 MG-UNIT TABLET 1 TABLET WITH A MEAL ORALLY ONCE A DAY, NOTES: 2-3 DAYS AGO TAKING MULTIVITAMIN ADULTS - TABLET DIRECTED ORALLY , NOTES: 2-3 DAYS AGO TAKING LISINOPRIL 10 MG TABLET 1 TABLET ORALLY ONCE A DAY, NOTES: 0900 TAKING VOLTAREN 1 % GEL DIRECTED TRANSDERMAL , NOTES: NONE RECENTLY TAKING MAY HAVE - - IRON INFUSIONS INTRAVENOUSLY Q 6 MOS, NOTES: 11/29/19 TAKING GABAPENTIN 300 MG TABLET 1 CAPSULE ORALLY FOR PAIN Q8H TID, NOTES: 2-3 DAYS AGO NOT-TAKING IBUPROFEN 800 MG TABLET 1 TABLET WITH FOOD OR MILK NEEDED ORALLY BID PRN NOT-TAKING FUROSEMIDE 40 MG TABLET 1 TABLET ORALLY ONCE A DAY NOT-TAKING ROPINIROLE HCL 1 MG TABLET 1 1/2 TABS ORALLY BID NOT-TAKING METHYLPREDNISOLONE (DREW) 4MG USE DIRECTED X 6 DAYS NOT-TAKING PANTOPRAZOLE SODIUM 40 MG TABLET DELAYED RELEASE 1 TABLET ORALLY ONCE A DAY NOT-TAKING VITAMIN D (ERGOCALCIFEROL) 94712 UNIT CAPSULE 1 CAPSULE ORALLY NOT-TAKING GABAPENTIN 100 MG CAPSULE 1 CAPSULE ORALLY ONCE DAILY NEEDED MEDICATION LIST REVIEWED AND RECONCILED WITH THE PATIENT PAST MEDICAL HISTORY HTN ANEMIA OBESITY S/P GASTRIC BYPASS HISTORY OF FLUID RETENTION BLADDER MESH DEGENERATIVE DISC DISEASE RESTLESS LEG SYNDROME DEPRESSION ANXIETY LOW BACK AND LEFT HIP PAIN RADIATING DOWN LEFT LEG TO FOOT KING CYST BILATERAL LAURITA BILATERAL CARPAL TUNNEL BILATERAL LEG WEAKNESS AND PARESTHESIAS AROUND THE KNEE SWELLING IN FEET ALLERGIES N.K.D.A. SURGICAL HISTORY GASTRIC BYPASS 04/27/2008 BREAST REDUCTION 07/05/15 ROTATOR CUFF LEFT 2014 BLADDER REPAIR 1992,05/2003 HEMMORIOD REMOVAL 2015 HYSTERECTOMY 02/1995 GALLBLADDER REMOVED 02/1995 TONSILS REMOVED 1981 JACKELIN REMOVED FROM LEFT SIDE OF FACE 1970 COLON RESECTION FOR COLON CA 2016 RIGHT ROTATOR CUFF REPAIR AND RIGHT BICEP REPAIR 09/2019 FAMILY HISTORY FATHER: , DEPRESSION ,CHF, DIAGNOSED WITH HYPERTENSION, DIABETES, OTHER MALIGNANT NEOPLASM OF UNSPECIFIED SITE, OTHER SPECIFIED CONDITIONS INFLUENCING HEALTH STATUS MOTHER: , RETUM CANCER, OTHER MALIGNANT NEOPLASM OF UNSPECIFIED SITE SIBLINGS: ALIVE, HYPERLIPIDEMIA,HTN,ASTHMA,DEPRESSION 2 SISTER(S) . 2DAUGHTER(S) - HEALTHY. DAD-SKIN CA, HIGH CHOLESTEROL, ? ASTHMA\NMOM-RECTAL CA\NSISTER-ASHTMA, DISABLED DUE TO SPINAL CORD INJURY. SOCIAL HISTORY GENERAL: TOBACCO USE ARE YOU A:NONSMOKER LATEX QUESTIONNAIRE LATEX ALLERGY : HAVE YOU EVER DEVELOPED ANY TYPE OF REACTION AFTER HANDLING LATEX PRODUCTS SUCH RUBBER GLOVES, CONDOMS, DIAPHRAGMS, BALLOONS, SOCKS, OR UNDERWEAR?NO LATEX ALLERGY : HAVE YOU EVER DEVELOPED ANY TYPE OF REACTION DURING OR AFTER DENTAL APPOINTMENT, VAGINAL/RECTAL EXAMINATION, SURGICAL PROCEDURE, OR ANY OTHER EXPOSURE?NO LATEX RISK : HAVE YOU EVER HAD ANY DIFFICULTY BREATHING OR HIVES AFTER EATING OR HANDLING ANY FRUITS, OR VEGETABLES; SUCH KIWI, BANANAS, STONE FRUITS, OR CHESTNUTSNO LATEX RISK : DO YOU HAVE A PREVIOUS PERSONAL HISTORY OF MORE THAN NINE SURGERIES, SPINA BIFIDA, OR REPEATED CATHERIZATIONS? YES - PLEASE INDICATE : > 9 SURGERIES LATEX RISK : ARE YOU FREQUENTLY EXPOSED TO LATEX PRODUCTS IN YOUR OCCUPATION?NO DATE ASKED : 08/14/2020 ALCOHOL SCREENING DID YOU HAVE A DRINK CONTAINING ALCOHOL IN THE PAST YEAR?NO POINTS0 INTERPRETATIONNEGATIVE RECREATIONAL DRUG USE DRUG USE?NO CAFFEINE CAFFEINE USE?YES 4 CUPS OF COFFEE A DAY SEXUAL HX HAD SEX IN THE LAST 12 MONTHS (VAGINAL, ORAL, OR ANAL)?: NO, HAVE YOU EVER HAD AN STD?: NO. [id number] MALAY. EDUCATION LEVEL OF EDUCATION:FINISHED [employer] LEARNING BARRIERS / SPECIAL NEEDS BARRIERS TO LEARNING?NO HEARING IMPAIRED?NO VISION IMPAIRED?YES :CORRECTIVE LENSES READING GLASSES COGNITIVELY IMPAIRED?NO READINESS TO LEARN?YES LEARNING PREFERENCES?YES :DEMONSTRATION/VERBAL INSTRUCTION LEARNING CAPABILITIES PRESENT?YES EMOTIONAL BARRIERS?NO SPECIAL DEVICES?NO BUSINESS CASE ANALYST NEEDED?NO DOMESTIC VIOLENCE NONE. DIET: REGULAR. EXERCISE: WALKS. MARITAL STATUS: .. OTHERS AT HOME: BOYFRIEND. NEW PATIENT PAIN DIARY TODAY'S VISIT 03/20/2020 PATIENT DESCRIBES PAIN :BURNING, HAVE IT ALL THE TIME FROM 0-10, WHAT LEVEL IS YOUR PAIN TODAY?3 PRECIPITATING FACTORS SITTING OR STANDING TOO LONG. WORSE AT NIGHT ALLEVIATING FACTORS BIOFREEZE, JUAN MANUEL IMPACT ON FUNCTION CAN'T DO MUCH OF ANYTHING PAIN CLINIC PFS, CLERGY, PUBLIC HEALTH REFERRALS PFS REFERRAL NEEDED?NO CLERGY REFERRAL NEEDED?NO PUBLIC HEALTH REFERRAL NEEDED?NO WAS THE PROVIDER NOTIFIED OF ANY PERTINENT INFO?YES HAS THE PATIENT BEEN EDUCATED REGARDING HIS/HER PLAN OF CARE?YES HAS THE PATIENT BEEN EDUCATED REGARDING PAIN, THE RISK FOR PAIN, THE IMPORTANCE OF EFFECTIVE PAIN MANAGEMENT, AND THE PAIN ASSESSMENT PROCESS?YES ADVANCE DIRECTIVE ADVANCE DIRECTIVE DISCUSSED WITH PATIENT:YES PT. DECLINES INFORMATION, DECLINES ASSISTANCE AT THIS TIME HOSPITALIZATION/MAJOR DIAGNOSTIC PROCEDURE SURGERY RELATED VITAL SIGNS WT 232.4 LBS, HT 64 IN, BMI 39.89 INDEX, BP 162/79 MM HG, HR 58 /MIN, RR 18 /MIN, TEMP 97.5 F, OXYGEN SAT % 97%, NA INITIALS SC 09:10, REVIEWED BY: SARAH. EXAMINATION GENERAL EXAMINATION: THE PATIENT IS ALERT, ORIENTED TIMES THREE AND COOPERATIVE. HEART SHOWS REGULAR RHYTHM, NO MURMURS AND NO GALLOPS. LUNGS ARE CLEAR TO AUSCULTATION. ASSESSMENTS SACROILIITIS - M46.1 (PRIMARY) SACROILIAC JOINT DYSFUNCTION - M53.3 TREATMENT SACROILIITIS [facility] FLUORO GUIDANCE (PAIN)[id number] SACROILIAC JOINT DYSFUNCTION [facility] FLUORO GUIDANCE (PAIN)[id number] PROCEDURES PAIN NURSING RECORD PRE-PROCEDURE IV SITE N/A, PRE-PROCEDURE ORAL MEDICATIONS VALIUM 10 MG PO LOT [id number] EXP 01/2021 AND OXYCODONE 10 MG LOT [id number] EXP 12/2021 PO GIVEN AT 0929 08-15-20. Aris LOWE RN PROCEDURE IN ROOM 0950, PHYSICIAN IN ROOM 1010, START 1016, FINISH 1021, PHYSICIAN OUT OF ROOM 1025, OUT OF ROOM 1030, STEROID KENALOG, O2 RA, ECG OTHER SINUS BRADYCARDIA, PATIENT SHIELDED YES, SAFETY STRAP YES, PREP CHLOROPREP Aris LOWE RN. STERILE TRAY PREPARED BY Gladys PALOMARES RN., IV INFUSED N/A, DRESSING TEGADERM LOC: 0934 , 1. ALERT, ORIENTED 0938 , 1. ALERT, ORIENTED 0943, 1. ALERT, ORIENTED 0950, 1. ALERT, ORIENTED 1000, 1. ALERT, ORIENTED 1005, 2. DROWSY, RESPONDS APPROPRIATELY 1015, 2. DROWSY, RESPONDS APPROPRIATELY 1030, 1. ALERT, ORIENTED 1045, 1. ALERT, ORIENTED RESP: 0934 , 1. REGULAR, NO DYSPNEA 0938, 1. REGULAR, NO DYSPNEA 0943, 1. REGULAR, NO DYSPNEA 0950, 1. REGULAR, NO DYSPNEA 1000, 1. REGULAR, NO DYSPNEA 1005, 1. REGULAR, NO DYSPNEA 1015, 1. REGULAR, NO DYSPNEA 1030, 1. REGULAR, NO DYSPNEA 1045, 1. REGULAR, NO DYSPNEA COLOR: 0934, 1. PINK 0938, 1. PINK 0943, 1. PINK 0950, 1. PINK 1000, 1. PINK 1005, 1. PINK 1015, 1. PINK 1030, 1. PINK 1045, 1. PINK SKIN: 0934, 1. WARM, DRY 0938, 1. WARM, DRY 0950, 1. WARM, DRY 1000, 1. WARM, DRY 1005, 1. WARM, DRY 1015, 1. WARM, DRY 1030, 1. WARM, DRY 1045, 1. WARM, DRY POSITION: 0934, 2. SUPINE 0938, 2. SUPINE 0943, 2. SUPINE 0950, 1. PRONE 1000, 1. PRONE 1005, 1. PRONE 1015, 1. PRONE 1030, 2. SUPINE 1045, 4. OTHER - SITTING VITALS: 0934 66-16 138/76 96% 0938 61-16 121/63 94% 0943 54-16 142/86 95% 0950 54-16 142/86 93% 1000 67-16 133/88 94% 1005 PULSE OX 88% WHEN FALLS ASLEEP, RETURNS IMMEDIATELY TO 94% WITH VERBAL STIMULI 1015 60-16 94% 143/75 1030 56-16 93%146/82 1038 60-16 141/87 95% NOTES 0929 SIDE RAILS UP. CALL ALBERT PLACED IN REACH. INSTRUCTED TO USE CALL ALBERT IF NEEDS TO GET OOB. INSTRUCTED RE POSSIBILITY OF DIZZINESS AND/OR DROWSINESS AFTER PRE-SEDATION MEDICATIONS. Aris LOWE RN 1005 NO DYSPNEA NOTED. Aris LOWE RN 1010 DR. SIMMS NOTIFIED RE TRANSIENT DECREASES IN PULSE OX WHEN FALLS ASLEEP. Aris LOWE RN 1030 NO FURTHER TRANSIENT DECREASES IN PULSE OX NOTED. Aris LOWE HEALTH INFORMATION TECHNOLOGIST: POST PAIN 0/10, DRESSING SITE DRY AND INTACT, IV N/A, GAIT WHEELCHAIR, TEACHING COMPLETED, PATIENT ACKNOWLEDGES UNDERSTANDING YES, PATIENT DISCHARGED AT 1115 PN SI PRE PROCEDURE DIAGNOSIS SACROILIITIS, SACROILIAC JOINT DYSFUNCTION POST PROCEDURE DIAGNOSIS SACROILIITIS, SACROILIAC JOINT DYSFUNCTION PROCEDURE BILATERAL SACROILIAC JOINT BLOCK SURGEON DR. JARAD SIMMS SALES AND SERVICE ASSOCIATE NONE ANESTHESIA LOCAL PRE PROCEDURE NOTE THE PATIENT WITH HISTORY OF CHRONIC LOW BACK PAIN. I EVALUATED THE PATIENT AND REVIEWED THE CHART. I WENT OVER THE RISKS, ALTERNATIVES, AND BENEFITS ASSOCIATED WITH THIS PROCEDURE. I DISCUSSED THAT THE USE OF STEROIDS MAY CONTRIBUTE TO IMMUNOSUPPRESSION OF THE PATIENT'S BODY AGAINST INFECTIONS SUCH COVID-19. THE PATIENT IS AWARE OF THE POTENTIAL COMPLICATIONS ASSOCIATED WITH THIS VIRUS, INCLUDING, BUT NOT LIMITED TO, . THE PATIENT WOULD LIKE TO PROCEED AND GAVE CONSENT TO PERFORM THE PROCEDURE. THE PATIENT DENIES UNEXPLAINABLE WEIGHT LOSS, FEVER, CHILLS, OR NEW CHANGES IN URINARY OR BOWEL CONTROL. THE PATIENT IS COVID-19 NEGATIVE DESCRIPTION OF PROCEDURE THE PATIENT WAS BROUGHT TO THE PROCEDURE ROOM AND PLACED IN THE PRONE POSITION. THE LUMBOSACRAL AREA WAS CLEANED WITH CHLORAPREP SOLUTION AND DRAPED ASEPTICALLY. THE PROCEDURE WAS DONE UNDER STERILE CONDITIONS. A TIMEOUT WAS PERFORMED WHERE LATERALITY AND THE SITE OF THE PROCEDURE WERE CHECKED AND CONFIRMED WITH EVERYONE IN THE ROOM. UNDER FLUOROSCOPIC GUIDANCE, THE TARGET POINT WAS SELECTED AT THE LOWER BORDER OF THE RIGHT AND LEFT SACROILIAC JOINT. TARGET POINT WAS SELECTED AFTER MEDIAL ROTATION AND TILT OF THE MAGNIFIER OR THE C-ARM. I CONFIRMED AGAIN WITH EVERYONE IN THE ROOM THE LATERALITY OF THE TARGET AT 1016 ON THE LEFT AND AT 1019 ON THE RIGHT. LIDOCAINE 0.5% WAS USED TO NUMB THE SKIN AND THE SUBCUTANEOUS TISSUE BELOW IT. SPINAL NEEDLES, 22-GAUGE, WERE ADVANCED UNDER FLUOROSCOPIC GUIDANCE AND FOLLOWING PATIENT FEEDBACK UNTIL THE TARGETS WERE TOUCHED. THE POSITION OF THE NEEDLES WAS VERIFIED WITH AP AND OBLIQUE VIEWS. AFTER PROPER POSITION OF THE NEEDLES WAS ACHIEVED, ISOVUE-M DYE 30%, 0.1 ML, WAS INJECTED SHOWING ADEQUATE SPREAD OF THE DYE. KENALOG 40 MG WAS INJECTED AT EACH SITE. THEN, A SOLUTION OF 3.0 ML OF BUPIVACAINE 0.125% WAS USED TO FLUSH EACH NEEDLE. THE MEDICATIONS WERE VERIFIED WITH THE NURSE. THERE WAS NO EVIDENCE OF BLOOD, PARESTHESIA OR CEREBROSPINAL FLUID DURING THE PROCEDURE. THE PATIENT WAS SENT TO THE RECOVERY ROOM. THE PATIENT WAS MOVING THE EXTREMITIES AND DOING WELL. THERE WERE NO COMPLICATIONS DURING THE PROCEDURE. ESTIMATED BLOOD LOSS WAS LESS THAN 5 ML. FLUOROSCOPIC TIME WAS 22 SECONDS POST PROCEDURE NOTE DEPENDING ON THE RESULTS OF THIS INJECTION, I WOULD ADVISE TO DO AN EPIDURAL STEROID INJECTION AT L5-S1. THE PROCEDURE DONE WAS DISCUSSED WITH THE PATIENT. THE PATIENT WILL BE SEEN IN A FOLLOW UP IN THE NEXT FEW WEEKS. I AM LOOKING FOR LONG LASTING PAIN RELIEF FOR THE PATIENT WITH THIS INTERVENTION. INSTRUCTIONS WERE GIVEN, QUESTIONS WERE ANSWERED, AND THE PATIENT EXPRESSED UNDERSTANDING AND AGREES WITH THE PLAN. I, SHARRI GARCIA, DOCUMENTED THE ABOVE INFORMATION ACTING A SCRIBE FOR DR. SIMMS. I HAVE REVIEWED THE ABOVE DOCUMENT, WRITTEN BY SHARRI GARCIA, SOFTWARE ENGINEER SALES, AND I VERIFY THAT IT IS ACCURATE PROCEDURE CODES 19551 INJECT SACROILIAC JOINT, MODIFIERS: 50 DISPOSITION & COMMUNICATION FOLLOW UP FOLLOW UP WITH TISSUE TECHNICIAN (REASON: POST BILATERAL SIJ) ELECTRONICALLY SIGNED BY JARAD SIMMS MD, MD ON 08/16/2020 AT 12:25 PM EDT DISCLAIMER : THIS IS A VISIT SUMMARY EXTRACTED FROM THE [employer] CHART. IT IS NOT A COPY OF THE [employer] PROGRESS NOTE. AYUSH
--- NOTE | 2020-08-16 12:28 | ECWPNPC ---
PATIENT NAME: CHRISTAL HARRIS : 1960 GENDER: FEMALE VISIT DATE: 08/15/2020 DISCHARGE DATE: 08/15/20 1054 VISIT LOCKED DATE TIME: PHYSICIAN: JARAD SIMMS MD RESOURCE: JARAD SIMMS MD REASON FOR APPOINTMENT 1. BILATERAL SIJ HISTORY OF PRESENT ILLNESS PAIN CENTER INTAKE QUESTIONS: DO YOU HAVE A HISTORY OF MRSA? :NO DO YOU TAKE A BLOOD THINNERS? :NO DO YOU HAVE ANY BLEEDING DISORDERS? :NO ANY NEW NUMBNESS OR WEAKNESS IN YOUR LEGS OR ARMS? :YES LEFT LEG AND INTO FOOT H/O NEUROPATHY ANY PACEMAKER,DEFIBRILLATOR, OR DORSAL COLUMN STIMULATOR? :NO DO YOU HAVE ANY RASHES OR OPEN SORES? :NO ARE YOU ALLERGIC TO IV DYE? :NO ARE YOU DIABETIC? :NO ANY NEW PROBLEMS WITH YOUR MEDICATIONS? :NO HAVE YOU RECEIVED A VACCINE IN THE PAST 30 DAYS? :NO DO YOU PLAN TO RECEIVE A VACCINE IN THE NEXT 21 DAYS? :NO DO YOU TAKE ANY IMMUNOSUPPRESSIVE MEDICATIONS? :NO ANY HISTORY OF SEIZURES? :NO ANY HISTORY OF CARDIAC ISSUES OR EVENTS? :NO DO YOU HAVE SLEEP APNEA? :YES DO YOU WEAR A CPAP?YES ANY RECENT HEAD INJURY? :NO DO YOU HAVE ANY NEW INFECTIONS? :NO IS THERE A CHANCE YOU COULD BE ? :NO ARE YOU BREAST FEEDING? :NO WHEN DID YOU LAST EAT? : -2400 08/14/20 WHEN DID YOU LAST DRINK? : -08/14/20 240 WHAT DID YOU LAST DRINK? : -COFFEE NAME OF PERSON DRIVING YOU HOME? : DANN REYES () DO YOU HAVE ANY OTHER QUESTIONS OR CONCERNS? : -NO GENERAL: -. FALL RISK SCREENING: SCREENING :NO FALLS REPORTED IN THE LAST YEAR PAIN SCREENING: PATIENT HAS A COMPLAINT OF ACUTE OR CHRONIC PAIN :YES LOCATION OF PAIN:LOW BACK INTENSITY OF PAIN (SCALE OF 1 TO 10):8 WHAT DOES YOUR PAIN FEEL LIKE:ACHING DURATION:INTERMITTENT NURSING NOTE: -. CURRENT MEDICATIONS TAKING CRESTOR 10 MG TABLET 1 TABLET ORALLY ONCE A DAY, NOTES: 08/14/20 09 TAKING BUSPIRONE HCL 5 MG TABLET 1 TABLET ORALLY BID, NOTES: 08/14/20 09 TAKING VIIBRYD 40 MG TABLET 1 CAP ORALLY DAILY, NOTES: 08/14/20 09 TAKING OMEPRAZOLE 40 MG CAPSULE DELAYED RELEASE 1 CAPSULE ORALLY BID, NOTES: 2-3 DAYS AGO TAKING VITAMIN B12 TR 2000 MCG TABLET EXTENDED RELEASE 1 TABLET ORALLY ONCE A DAY, NOTES: 2-3 DAYS AGO TAKING VITAMIN B1 100 MG TABLET 1 TABLET ORALLY ONCE A DAY, NOTES: 2-3 DAYS AGO TAKING CALCIUM + D3 600-200 MG-UNIT TABLET 1 TABLET WITH A MEAL ORALLY ONCE A DAY, NOTES: 2-3 DAYS AGO TAKING MULTIVITAMIN ADULTS - TABLET DIRECTED ORALLY , NOTES: 2-3 DAYS AGO TAKING LISINOPRIL 10 MG TABLET 1 TABLET ORALLY ONCE A DAY, NOTES: 0900 TAKING VOLTAREN 1 % GEL DIRECTED TRANSDERMAL , NOTES: NONE RECENTLY TAKING MAY HAVE - - IRON INFUSIONS INTRAVENOUSLY Q 6 MOS, NOTES: 11/29/19 TAKING GABAPENTIN 300 MG TABLET 1 CAPSULE ORALLY FOR PAIN Q8H TID, NOTES: 2-3 DAYS AGO NOT-TAKING IBUPROFEN 800 MG TABLET 1 TABLET WITH FOOD OR MILK NEEDED ORALLY BID PRN NOT-TAKING FUROSEMIDE 40 MG TABLET 1 TABLET ORALLY ONCE A DAY NOT-TAKING ROPINIROLE HCL 1 MG TABLET 1 1/2 TABS ORALLY BID NOT-TAKING METHYLPREDNISOLONE (DREW) 4MG USE DIRECTED X 6 DAYS NOT-TAKING PANTOPRAZOLE SODIUM 40 MG TABLET DELAYED RELEASE 1 TABLET ORALLY ONCE A DAY NOT-TAKING VITAMIN D (ERGOCALCIFEROL) 45915 UNIT CAPSULE 1 CAPSULE ORALLY NOT-TAKING GABAPENTIN 100 MG CAPSULE 1 CAPSULE ORALLY ONCE DAILY NEEDED MEDICATION LIST REVIEWED AND RECONCILED WITH THE PATIENT PAST MEDICAL HISTORY HTN ANEMIA OBESITY S/P GASTRIC BYPASS HISTORY OF FLUID RETENTION BLADDER MESH DEGENERATIVE DISC DISEASE RESTLESS LEG SYNDROME DEPRESSION ANXIETY LOW BACK AND LEFT HIP PAIN RADIATING DOWN LEFT LEG TO FOOT KING CYST BILATERAL LAURITA BILATERAL CARPAL TUNNEL BILATERAL LEG WEAKNESS AND PARESTHESIAS AROUND THE KNEE SWELLING IN FEET ALLERGIES N.K.D.A. SURGICAL HISTORY GASTRIC BYPASS 04/27/2008 BREAST REDUCTION 07/05/15 ROTATOR CUFF LEFT 2014 BLADDER REPAIR 1992,05/2003 HEMMORIOD REMOVAL 2015 HYSTERECTOMY 02/1995 GALLBLADDER REMOVED 02/1995 TONSILS REMOVED 1981 JACKELIN REMOVED FROM LEFT SIDE OF FACE 1970 COLON RESECTION FOR COLON CA 2016 RIGHT ROTATOR CUFF REPAIR AND RIGHT BICEP REPAIR 09/2019 FAMILY HISTORY FATHER: , DEPRESSION ,CHF, DIAGNOSED WITH HYPERTENSION, DIABETES, OTHER MALIGNANT NEOPLASM OF UNSPECIFIED SITE, OTHER SPECIFIED CONDITIONS INFLUENCING HEALTH STATUS MOTHER: , RETUM CANCER, OTHER MALIGNANT NEOPLASM OF UNSPECIFIED SITE SIBLINGS: ALIVE, HYPERLIPIDEMIA,HTN,ASTHMA,DEPRESSION 2 SISTER(S) . 2DAUGHTER(S) - HEALTHY. DAD-SKIN CA, HIGH CHOLESTEROL, ? ASTHMA\NMOM-RECTAL CA\NSISTER-ASHTMA, DISABLED DUE TO SPINAL CORD INJURY. SOCIAL HISTORY GENERAL: TOBACCO USE ARE YOU A:NONSMOKER LATEX QUESTIONNAIRE LATEX ALLERGY : HAVE YOU EVER DEVELOPED ANY TYPE OF REACTION AFTER HANDLING LATEX PRODUCTS SUCH RUBBER GLOVES, CONDOMS, DIAPHRAGMS, BALLOONS, SOCKS, OR UNDERWEAR?NO LATEX ALLERGY : HAVE YOU EVER DEVELOPED ANY TYPE OF REACTION DURING OR AFTER DENTAL APPOINTMENT, VAGINAL/RECTAL EXAMINATION, SURGICAL PROCEDURE, OR ANY OTHER EXPOSURE?NO LATEX RISK : HAVE YOU EVER HAD ANY DIFFICULTY BREATHING OR HIVES AFTER EATING OR HANDLING ANY FRUITS, OR VEGETABLES; SUCH KIWI, BANANAS, STONE FRUITS, OR CHESTNUTSNO LATEX RISK : DO YOU HAVE A PREVIOUS PERSONAL HISTORY OF MORE THAN NINE SURGERIES, SPINA BIFIDA, OR REPEATED CATHERIZATIONS? YES - PLEASE INDICATE : > 9 SURGERIES LATEX RISK : ARE YOU FREQUENTLY EXPOSED TO LATEX PRODUCTS IN YOUR OCCUPATION?NO DATE ASKED : 08/14/2020 ALCOHOL SCREENING DID YOU HAVE A DRINK CONTAINING ALCOHOL IN THE PAST YEAR?NO POINTS0 INTERPRETATIONNEGATIVE RECREATIONAL DRUG USE DRUG USE?NO CAFFEINE CAFFEINE USE?YES 4 CUPS OF COFFEE A DAY SEXUAL HX HAD SEX IN THE LAST 12 MONTHS (VAGINAL, ORAL, OR ANAL)?: NO, HAVE YOU EVER HAD AN STD?: NO. BAP[employer]IST [id number] CONFUCIANISM LANGUAGE MAORI. EDUCATION LEVEL OF EDUCATION:FINISHED [employer] DEGREE LEARNING BARRIERS / SPECIAL NEEDS BARRIERS TO LEARNING?NO HEARING IMPAIRED?NO VISION IMPAIRED?YES :CORRECTIVE LENSES READING GLASSES COGNITIVELY IMPAIRED?NO READINESS TO LEARN?YES LEARNING PREFERENCES?YES :DEMONSTRATION/VERBAL INSTRUCTION LEARNING CAPABILITIES PRESENT?YES EMOTIONAL BARRIERS?NO SPECIAL DEVICES?NO TEACHER PRIVATE NEEDED?NO DOMESTIC VIOLENCE NONE. DIET: REGULAR. EXERCISE: WALKS. MARITAL STATUS: .. OTHERS AT HOME: BOYFRIEND. NEW PATIENT PAIN DIARY TODAY'S VISIT 03/20/2020 PATIENT DESCRIBES PAIN :BURNING, HAVE IT ALL THE TIME FROM 0-10, WHAT LEVEL IS YOUR PAIN TODAY?3 PRECIPITATING FACTORS SITTING OR STANDING TOO LONG. WORSE AT NIGHT ALLEVIATING FACTORS BIOFREEZE, JUAN MANUEL IMPACT ON FUNCTION CAN'T DO MUCH OF ANYTHING PAIN CLINIC PFS, CLERGY, PUBLIC HEALTH REFERRALS PFS REFERRAL NEEDED?NO CLERGY REFERRAL NEEDED?NO PUBLIC HEALTH REFERRAL NEEDED?NO WAS THE PROVIDER NOTIFIED OF ANY PERTINENT INFO?YES HAS THE PATIENT BEEN EDUCATED REGARDING HIS/HER PLAN OF CARE?YES HAS THE PATIENT BEEN EDUCATED REGARDING PAIN, THE RISK FOR PAIN, THE IMPORTANCE OF EFFECTIVE PAIN MANAGEMENT, AND THE PAIN ASSESSMENT PROCESS?YES ADVANCE DIRECTIVE ADVANCE DIRECTIVE DISCUSSED WITH PATIENT:YES PT. DECLINES INFORMATION, DECLINES ASSISTANCE AT THIS TIME HOSPITALIZATION/MAJOR DIAGNOSTIC PROCEDURE SURGERY RELATED VITAL SIGNS WT 232.4 LBS, HT 64 IN, BMI 39.89 INDEX, BP 162/79 MM HG, HR 58 /MIN, RR 18 /MIN, TEMP 97.5 F, OXYGEN SAT % 97%, NA INITIALS SC 09:10, REVIEWED BY: SARAH. EXAMINATION GENERAL EXAMINATION: THE PATIENT IS ALERT, ORIENTED TIMES THREE AND COOPERATIVE. HEART SHOWS REGULAR RHYTHM, NO MURMURS AND NO GALLOPS. LUNGS ARE CLEAR TO AUSCULTATION. ASSESSMENTS SACROILIITIS - M46.1 (PRIMARY) SACROILIAC JOINT DYSFUNCTION - M53.[address] [facility] FLUORO GUIDANCE (PAIN)[id number] SACROILIAC JOINT DYSFUNCTION [facility] FLUORO GUIDANCE (PAIN)[id number] PROCEDURES PAIN NURSING RECORD PRE-PROCEDURE IV SITE N/A, PRE-PROCEDURE ORAL MEDICATIONS VALIUM 10 MG PO LOT [id number] EXP 01/2021 AND OXYCODONE 10 MG LOT [id number] EXP 12/2021 PO GIVEN AT 0929 08-15-20. Aris LOWE RN PROCEDURE IN ROOM 0950, PHYSICIAN IN ROOM 1010, START 1016, FINISH 1021, PHYSICIAN OUT OF ROOM 1025, OUT OF ROOM 1030, STEROID KENALOG, O2 RA, ECG OTHER SINUS BRADYCARDIA, PATIENT SHIELDED YES, SAFETY STRAP YES, PREP CHLOROPREP Aris LOWE RN. STERILE TRAY PREPARED BY Gladys PALOMARES RN., IV INFUSED N/A, DRESSING TEGADERM LOC: 0934 , 1. ALERT, ORIENTED 0938 , 1. ALERT, ORIENTED 0943, 1. ALERT, ORIENTED 0950, 1. ALERT, ORIENTED 1000, 1. ALERT, ORIENTED 1005, 2. DROWSY, RESPONDS APPROPRIATELY 1015, 2. DROWSY, RESPONDS APPROPRIATELY 1030, 1. ALERT, ORIENTED 1045, 1. ALERT, ORIENTED RESP: 0934 , 1. REGULAR, NO DYSPNEA 0938, 1. REGULAR, NO DYSPNEA 0943, 1. REGULAR, NO DYSPNEA 0950, 1. REGULAR, NO DYSPNEA 1000, 1. REGULAR, NO DYSPNEA 1005, 1. REGULAR, NO DYSPNEA 1015, 1. REGULAR, NO DYSPNEA 1030, 1. REGULAR, NO DYSPNEA 1045, 1. REGULAR, NO DYSPNEA COLOR: 0934, 1. PINK 0938, 1. PINK 0943, 1. PINK 0950, 1. PINK 1000, 1. PINK 1005, 1. PINK 1015, 1. PINK 1030, 1. PINK 1045, 1. PINK SKIN: 0934, 1. WARM, DRY 0938, 1. WARM, DRY 0950, 1. WARM, DRY 1000, 1. WARM, DRY 1005, 1. WARM, DRY 1015, 1. WARM, DRY 1030, 1. WARM, DRY 1045, 1. WARM, DRY POSITION: 0934, 2. SUPINE 0938, 2. SUPINE 0943, 2. SUPINE 0950, 1. PRONE 1000, 1. PRONE 1005, 1. PRONE 1015, 1. PRONE 1030, 2. SUPINE 1045, 4. OTHER - SITTING VITALS: 0934 66-16 138/76 96% 0938 61-16 121/63 94% 0943 54-16 142/86 95% 0950 54-16 142/86 93% 1000 67-16 133/88 94% 1005 PULSE OX 88% WHEN FALLS ASLEEP, RETURNS IMMEDIATELY TO 94% WITH VERBAL STIMULI 1015 60-16 94% 143/75 1030 56-16 93%146/82 1038 60-16 141/87 95% NOTES 0929 SIDE RAILS UP. CALL ALBERT PLACED IN REACH. INSTRUCTED TO USE CALL ALBERT IF NEEDS TO GET OOB. INSTRUCTED RE POSSIBILITY OF DIZZINESS AND/OR DROWSINESS AFTER PRE-SEDATION MEDICATIONS. Aris LOWE RN 1005 NO DYSPNEA NOTED. Aris LOWE RN 1010 DR. SIMMS NOTIFIED RE TRANSIENT DECREASES IN PULSE OX WHEN FALLS ASLEEP. Aris LOWE RN 1030 NO FURTHER TRANSIENT DECREASES IN PULSE OX NOTED. Aris LOWE PLASTIC EXTRUDING MACHINE OPERATOR: POST PAIN 0/10, DRESSING SITE DRY AND INTACT, IV N/A, GAIT WHEELCHAIR, TEACHING COMPLETED, PATIENT ACKNOWLEDGES UNDERSTANDING YES, PATIENT DISCHARGED AT 1115 PN SI PRE PROCEDURE DIAGNOSIS SACROILIITIS, SACROILIAC JOINT DYSFUNCTION POST PROCEDURE DIAGNOSIS SACROILIITIS, SACROILIAC JOINT DYSFUNCTION PROCEDURE BILATERAL SACROILIAC JOINT BLOCK SURGEON DR. JARAD SIMMS STRAIGHT CUTTER NONE ANESTHESIA LOCAL PRE PROCEDURE NOTE THE PATIENT WITH HISTORY OF CHRONIC LOW BACK PAIN. I EVALUATED THE PATIENT AND REVIEWED THE CHART. I WENT OVER THE RISKS, ALTERNATIVES, AND BENEFITS ASSOCIATED WITH THIS PROCEDURE. I DISCUSSED THAT THE USE OF STEROIDS MAY CONTRIBUTE TO IMMUNOSUPPRESSION OF THE PATIENT'S BODY AGAINST INFECTIONS SUCH COVID-19. THE PATIENT IS AWARE OF THE POTENTIAL COMPLICATIONS ASSOCIATED WITH THIS VIRUS, INCLUDING, BUT NOT LIMITED TO, . THE PATIENT WOULD LIKE TO PROCEED AND GAVE CONSENT TO PERFORM THE PROCEDURE. THE PATIENT DENIES UNEXPLAINABLE WEIGHT LOSS, FEVER, CHILLS, OR NEW CHANGES IN URINARY OR BOWEL CONTROL. THE PATIENT IS COVID-19 NEGATIVE DESCRIPTION OF PROCEDURE THE PATIENT WAS BROUGHT TO THE PROCEDURE ROOM AND PLACED IN THE PRONE POSITION. THE LUMBOSACRAL AREA WAS CLEANED WITH CHLORAPREP SOLUTION AND DRAPED ASEPTICALLY. THE PROCEDURE WAS DONE UNDER STERILE CONDITIONS. A TIMEOUT WAS PERFORMED WHERE LATERALITY AND THE SITE OF THE PROCEDURE WERE CHECKED AND CONFIRMED WITH EVERYONE IN THE ROOM. UNDER FLUOROSCOPIC GUIDANCE, THE TARGET POINT WAS SELECTED AT THE LOWER BORDER OF THE RIGHT AND LEFT SACROILIAC JOINT. TARGET POINT WAS SELECTED AFTER MEDIAL ROTATION AND TILT OF THE MAGNIFIER OR THE C-ARM. I CONFIRMED AGAIN WITH EVERYONE IN THE ROOM THE LATERALITY OF THE TARGET AT 1016 ON THE LEFT AND AT 1019 ON THE RIGHT. LIDOCAINE 0.5% WAS USED TO NUMB THE SKIN AND THE SUBCUTANEOUS TISSUE BELOW IT. SPINAL NEEDLES, 22-GAUGE, WERE ADVANCED UNDER FLUOROSCOPIC GUIDANCE AND FOLLOWING PATIENT FEEDBACK UNTIL THE TARGETS WERE TOUCHED. THE POSITION OF THE NEEDLES WAS VERIFIED WITH AP AND OBLIQUE VIEWS. AFTER PROPER POSITION OF THE NEEDLES WAS ACHIEVED, ISOVUE-M DYE 30%, 0.1 ML, WAS INJECTED SHOWING ADEQUATE SPREAD OF THE DYE. KENALOG 40 MG WAS INJECTED AT EACH SITE. THEN, A SOLUTION OF 3.0 ML OF BUPIVACAINE 0.125% WAS USED TO FLUSH EACH NEEDLE. THE MEDICATIONS WERE VERIFIED WITH THE NURSE. THERE WAS NO EVIDENCE OF BLOOD, PARESTHESIA OR CEREBROSPINAL FLUID DURING THE PROCEDURE. THE PATIENT WAS SENT TO THE RECOVERY ROOM. THE PATIENT WAS MOVING THE EXTREMITIES AND DOING WELL. THERE WERE NO COMPLICATIONS DURING THE PROCEDURE. ESTIMATED BLOOD LOSS WAS LESS THAN 5 ML. FLUOROSCOPIC TIME WAS 22 SECONDS POST PROCEDURE NOTE DEPENDING ON THE RESULTS OF THIS INJECTION, I WOULD ADVISE TO DO AN EPIDURAL STEROID INJECTION AT L5-S1. THE PROCEDURE DONE WAS DISCUSSED WITH THE PATIENT. THE PATIENT WILL BE SEEN IN A FOLLOW UP IN THE NEXT FEW WEEKS. I AM LOOKING FOR LONG LASTING PAIN RELIEF FOR THE PATIENT WITH THIS INTERVENTION. INSTRUCTIONS WERE GIVEN, QUESTIONS WERE ANSWERED, AND THE PATIENT EXPRESSED UNDERSTANDING AND AGREES WITH THE PLAN. I, SHARRI GARCIA, DOCUMENTED THE ABOVE INFORMATION ACTING A SCRIBE FOR DR. SIMMS. I HAVE REVIEWED THE ABOVE DOCUMENT, WRITTEN BY SHARRI GARCIA, CREATIVE ART THERAPIST, AND I VERIFY THAT IT IS ACCURATE PROCEDURE CODES 47375 INJECT SACROILIAC JOINT, MODIFIERS: 50 DISPOSITION & COMMUNICATION FOLLOW UP FOLLOW UP WITH SOLAR SALES MANAGER (REASON: POST BILATERAL SIJ) ELECTRONICALLY SIGNED BY JARAD SIMMS MD, MD ON 08/16/2020 AT 12:25 PM EDT DISCLAIMER : THIS IS A VISIT SUMMARY EXTRACTED FROM THE [employer] CHART. IT IS NOT A COPY OF THE [email or web address] PROGRESS NOTE. AYUSH
--- NOTE | 2020-08-21 10:37 | REP ---
C-ARM VIEWS SACROILIAC (SI) JOINTS HISTORY: Pain. TECHNIQUE: Three C-arm views of bilateral sacroiliac joints performed during bilateral sacroiliac joint by Dr. Carl. FINDINGS: A needle overlies each sacroiliac joint. FLUOROSCOPY DOSE: 4.64 mGy. MTDD
== END ==
LOC: M PAIN 09:00
PROVIDERS: ATTEND Anesthesiology
DX: M46.1 Sacroiliitis, not elsewhere classified (principal); M53.3 Sacrococcygeal disorders, not elsewhere classified; I10 Essential (primary) hypertension; G25.81 Restless legs syndrome; G47.33 Obstructive sleep apnea (adult) (pediatric); Z98.84 Bariatric surgery status; Z86.59 Personal history of other mental and behavioral disorders; Z79.899 Other long term (current) drug therapy
CPT/HCPCS: G0260; J3301; Q9967

== ENCOUNTER 2020-08-30 16:07 | Emergency (ER) | payer OTHER, MEDICARE, MEDICAID ==
[~2020-08-30] VITALS: Ht 160 cm; Wt 103.8 kg
[~2020-08-30 16:07] MED LIST changes: -BUPIVACAINE HCL 0.25% 30ML VIAL As Ordered ONE; -BUSP10TA; -ISOVUE-M 300 61% 15ML VIAL As Ordered ONE; -LIDOCAINE 1% SDV 30ML VIAL As Ordered ONE; -TRIAMCINOLONE ACETONIDE SUSP 40 MG/ML VIAL (J3301) As Ordered ONE; -diazePAM 5 MG TAB As Ordered ONE; -oxyCODONE 5MG TAB As Ordered ONE
[2020-08-30] MEDS ORDERED: BACITRACIN OINTMENT 30GM TUBE TOP ONE (16:45)
[2020-08-30] MEDS ORDERED: BUSP10TA (17:15)
[2020-08-30 17:19] VITALS: BP 112/67
== END 2020-08-30 17:21 | disposition home or self-care (01) ==
LOC: M ED 16:07
DX: T65.891A Toxic effect of other specified substances, accidental (unintentional), initial encounter (principal); T23.4 Corrosion of unspecified degree of wrist and hand; T32.0 Corrosions involving less than 10% of body surface; Y92.9 Unspecified place or not applicable; Y93.E5 Activity, floor mopping and cleaning; Y99.0 Civilian activity done for income or pay; K21.9 Gastro-esophageal reflux disease without esophagitis; E78.5 Hyperlipidemia, unspecified; G25.81 Restless legs syndrome; Z98.84 Bariatric surgery status; Z79.899 Other long term (current) drug therapy

== ENCOUNTER → 2020-10-10 | Outpatient (CLI) | payer MEDICARE, MEDICAID ==
[~2020-10-10] MED LIST changes: +BUSP10TA
--- NOTE | 2020-10-12 00:22 | ECWPNPC ---
PATIENT NAME: CHRISTAL HARRIS : 1960 GENDER: FEMALE VISIT DATE: 10/10/2020 DISCHARGE DATE: 10/10/20 1054 VISIT LOCKED DATE TIME: PHYSICIAN: ANDREIA WALDROP RESOURCE: ANDREIA WALDROP REASON FOR APPOINTMENT 1. POST CARLINE SIJ HISTORY OF PRESENT ILLNESS GENERAL: HERE FOR POST PROCEDURE FOLLOW-UP. HAD LEFT BILATERAL SACROILIAC JOINT BLOCK ON 08/15/2020. REPORTING SIGNIFICANT REDUCTION IN PAIN POST PROCEDURE. HAS BEEN NOTICING LATELY A SLIGHT INCREASE IN PAIN WHEN SHE IS STANDING FOR PROLONGED PERIODS OF TIME AT HER JOB. OVERALL VERY HAPPY WITH RESULTS OF PROCEDURE. - -. FALL RISK SCREENING: SCREENING :NO FALLS REPORTED IN THE LAST YEAR PAIN SCREENING: PATIENT HAS A COMPLAINT OF ACUTE OR CHRONIC PAIN :YES INTENSITY OF PAIN (SCALE OF 1 TO 10):0 NURSING NOTE: -. PAIN CENTER INTAKE QUESTIONS: DO YOU HAVE A HISTORY OF MRSA? :NO DO YOU TAKE A BLOOD THINNERS? :NO DO YOU HAVE ANY BLEEDING DISORDERS? :NO ANY NEW NUMBNESS OR WEAKNESS IN YOUR LEGS OR ARMS? :YES LEFT FOOT NUMBNESS IMPROVED S/P INJECTION ANY PACEMAKER,DEFIBRILLATOR, OR DORSAL COLUMN STIMULATOR? :NO DO YOU HAVE ANY RASHES OR OPEN SORES? :NO ARE YOU ALLERGIC TO IV DYE? :NO ARE YOU DIABETIC? :NO ANY NEW PROBLEMS WITH YOUR MEDICATIONS? :NO HAVE YOU RECEIVED A VACCINE IN THE PAST 30 DAYS? :NO DO YOU PLAN TO RECEIVE A VACCINE IN THE NEXT 21 DAYS? :NO DO YOU NEED ANY PRESCRIPTION? :NO DO YOU TAKE ANY IMMUNOSUPPRESSIVE MEDICATIONS? :NO IS THERE A CHANCE YOU COULD BE ? :NO ARE YOU BREAST FEEDING? :NO CURRENT MEDICATIONS TAKING CRESTOR 10 MG TABLET 1 TABLET ORALLY ONCE A DAY TAKING BUSPIRONE HCL 5 MG TABLET 1 TABLET ORALLY BID TAKING VIIBRYD 40 MG TABLET 1 CAP ORALLY DAILY TAKING OMEPRAZOLE 40 MG CAPSULE DELAYED RELEASE 1 CAPSULE ORALLY BID TAKING VITAMIN B12 TR 2000 MCG TABLET EXTENDED RELEASE 1 TABLET ORALLY ONCE A DAY TAKING VITAMIN B1 100 MG TABLET 1 TABLET ORALLY ONCE A DAY TAKING CALCIUM + D3 600-200 MG-UNIT TABLET 1 TABLET WITH A MEAL ORALLY ONCE A DAY TAKING MULTIVITAMIN ADULTS - TABLET DIRECTED ORALLY TAKING LISINOPRIL 10 MG TABLET 1 TABLET ORALLY ONCE A DAY TAKING MAY HAVE - - IRON INFUSIONS INTRAVENOUSLY Q 6 MOS TAKING GABAPENTIN 300 MG TABLET 1 CAPSULE ORALLY FOR PAIN Q8H TID NOT-TAKING VOLTAREN 1 % GEL DIRECTED TRANSDERMAL NOT-TAKING IBUPROFEN 800 MG TABLET 1 TABLET WITH FOOD OR MILK NEEDED ORALLY BID PRN NOT-TAKING FUROSEMIDE 40 MG TABLET 1 TABLET ORALLY ONCE A DAY NOT-TAKING ROPINIROLE HCL 1 MG TABLET 1 1/2 TABS ORALLY BID NOT-TAKING METHYLPREDNISOLONE (DREW) 4MG USE DIRECTED X 6 DAYS NOT-TAKING PANTOPRAZOLE SODIUM 40 MG TABLET DELAYED RELEASE 1 TABLET ORALLY ONCE A DAY NOT-TAKING VITAMIN D (ERGOCALCIFEROL) 15100 UNIT CAPSULE 1 CAPSULE ORALLY NOT-TAKING GABAPENTIN 100 MG CAPSULE 1 CAPSULE ORALLY ONCE DAILY NEEDED MEDICATION LIST REVIEWED AND RECONCILED WITH THE PATIENT PAST MEDICAL HISTORY HTN ANEMIA OBESITY S/P GASTRIC BYPASS HISTORY OF FLUID RETENTION BLADDER MESH DEGENERATIVE DISC DISEASE RESTLESS LEG SYNDROME DEPRESSION ANXIETY LOW BACK AND LEFT HIP PAIN RADIATING DOWN LEFT LEG TO FOOT KING CYST BILATERAL LAURITA BILATERAL CARPAL TUNNEL BILATERAL LEG WEAKNESS AND PARESTHESIAS AROUND THE KNEE SWELLING IN FEET ALLERGIES N.K.D.A. SURGICAL HISTORY GASTRIC BYPASS 04/27/2008 BREAST REDUCTION 07/05/15 ROTATOR CUFF LEFT 2014 BLADDER REPAIR 1991,05/2003 HEMMORIOD REMOVAL 2014 HYSTERECTOMY 02/1995 GALLBLADDER REMOVED 02/1995 TONSILS REMOVED 1981 JACKELIN REMOVED FROM LEFT SIDE OF FACE 1970 COLON RESECTION FOR COLON CA 2016 RIGHT ROTATOR CUFF REPAIR AND RIGHT BICEP REPAIR 09/2019 FAMILY HISTORY FATHER: , DEPRESSION ,CHF, DIAGNOSED WITH HYPERTENSION, DIABETES, OTHER MALIGNANT NEOPLASM OF UNSPECIFIED SITE, OTHER SPECIFIED CONDITIONS INFLUENCING HEALTH STATUS MOTHER: , RETUM CANCER, OTHER MALIGNANT NEOPLASM OF UNSPECIFIED SITE SIBLINGS: ALIVE, HYPERLIPIDEMIA,HTN,ASTHMA,DEPRESSION 2 SISTER(S) . 2DAUGHTER(S) - HEALTHY. DAD-SKIN CA, HIGH CHOLESTEROL, ? ASTHMA\NMOM-RECTAL CA\NSISTER-ASHTMA, DISABLED DUE TO SPINAL CORD INJURY, LUNG CA. SOCIAL HISTORY GENERAL: TOBACCO USE ARE YOU A:NONSMOKER LATEX QUESTIONNAIRE LATEX ALLERGY : HAVE YOU EVER DEVELOPED ANY TYPE OF REACTION AFTER HANDLING LATEX PRODUCTS SUCH RUBBER GLOVES, CONDOMS, DIAPHRAGMS, BALLOONS, SOCKS, OR UNDERWEAR?NO LATEX ALLERGY : HAVE YOU EVER DEVELOPED ANY TYPE OF REACTION DURING OR AFTER DENTAL APPOINTMENT, VAGINAL/RECTAL EXAMINATION, SURGICAL PROCEDURE, OR ANY OTHER EXPOSURE?NO DATE ASKED : 08/14/2020 LATEX RISK : HAVE YOU EVER HAD ANY DIFFICULTY BREATHING OR HIVES AFTER EATING OR HANDLING ANY FRUITS, OR VEGETABLES; SUCH KIWI, BANANAS, STONE FRUITS, OR CHESTNUTSNO LATEX RISK : DO YOU HAVE A PREVIOUS PERSONAL HISTORY OF MORE THAN NINE SURGERIES, SPINA BIFIDA, OR REPEATED CATHERIZATIONS? YES - PLEASE INDICATE : > 9 SURGERIES LATEX RISK : ARE YOU FREQUENTLY EXPOSED TO LATEX PRODUCTS IN YOUR OCCUPATION?NO ALCOHOL SCREENING DID YOU HAVE A DRINK CONTAINING ALCOHOL IN THE PAST YEAR?NO POINTS0 INTERPRETATIONNEGATIVE RECREATIONAL DRUG USE DRUG USE?NO CAFFEINE CAFFEINE USE?YES 4 CUPS OF COFFEE A DAY SEXUAL HX HAD SEX IN THE LAST 12 MONTHS (VAGINAL, ORAL, OR ANAL)?: NO, HAVE YOU EVER HAD AN STD?: NO. JEHOVAH'S WITNESS [id number] [employer] YEMENI. EDUCATION LEVEL OF EDUCATION:FINISHED [employer] DEGREE LEARNING BARRIERS / SPECIAL NEEDS BARRIERS TO LEARNING?NO HEARING IMPAIRED?NO VISION IMPAIRED?YES COGNITIVELY IMPAIRED?NO :CORRECTIVE LENSES READING GLASSES READINESS TO LEARN?YES LEARNING PREFERENCES?YES :DEMONSTRATION/VERBAL INSTRUCTION LEARNING CAPABILITIES PRESENT?YES EMOTIONAL BARRIERS?NO SPECIAL DEVICES?NO CINDER WORKER NEEDED?NO DOMESTIC VIOLENCE NONE. DIET: REGULAR. EXERCISE: WALKS. MARITAL STATUS: .. OTHERS AT HOME: BOYFRIEND. TODAY'S VISIT 03/20/2020 PATIENT DESCRIBES PAIN :BURNING, HAVE IT ALL THE TIME FROM 0-10, WHAT LEVEL IS YOUR PAIN TODAY?3 PRECIPITATING FACTORS SITTING OR STANDING TOO LONG. WORSE AT NIGHT ALLEVIATING FACTORS BIOFREEZE, JUAN MANUEL IMPACT ON FUNCTION CAN'T DO MUCH OF ANYTHING PAIN CLINIC PFS, CLERGY, PUBLIC HEALTH REFERRALS PFS REFERRAL NEEDED?NO CLERGY REFERRAL NEEDED?NO PUBLIC HEALTH REFERRAL NEEDED?NO WAS THE PROVIDER NOTIFIED OF ANY PERTINENT INFO?YES HAS THE PATIENT BEEN EDUCATED REGARDING HIS/HER PLAN OF CARE?YES HAS THE PATIENT BEEN EDUCATED REGARDING PAIN, THE RISK FOR PAIN, THE IMPORTANCE OF EFFECTIVE PAIN MANAGEMENT, AND THE PAIN ASSESSMENT PROCESS?YES ADVANCE DIRECTIVE ADVANCE DIRECTIVE DISCUSSED WITH PATIENT:YES PT. DECLINES INFORMATION, DECLINES ASSISTANCE AT THIS TIME HOSPITALIZATION/MAJOR DIAGNOSTIC PROCEDURE SURGERY RELATED REVIEW OF SYSTEMS CONSTITUTIONAL: ANY RECENT FEVER NO . CHILLS NO . WEIGHT CHANGE OF UNKNOWN REASONS NO . GASTROENTEROLOGY: NEW UNEXPLAINABLE CHANGES IN BOWEL CONTROL NO . CONSTIPATION NO . GENITOURINARY: ANY NEW CHANGE IN BLADDER CONTROL? NO . NEUROLOGY: NEW ONSET DIZZINESS OR NEUROLOGICAL CHANGES NOT MENTIONED NO . NEW NUMBNESS OR PAIN PATTERNS NOT MENTIONED AND PERTINENT TO TODAY'S VISIT NO . CARDIOLOGY: NEW CHEST PRESSURE NO . NEW CHEST PAIN NO . RESPIRATORY: UNEXPLAINABLE COUGH NO . NEW SHORTNESS OF BREATH NO . VITAL SIGNS WT 228.2 LBS, HT 64 IN, BMI 39.17 INDEX, BP 140/76 MM HG, HR 80 /MIN, RR 18 /MIN, TEMP 97.2 F, OXYGEN SAT % 96%, SAFE IN ENV? (Y/N) Y, NA INITIALS AW 1018, REVIEWED BY: EM. EXAMINATION GENERAL EXAMINATION: GENERALAWAKE,ALERT ,PLEASANT . PSYCHAFFECT NORMAL . LUNGS:LUNG DILLARD ARE CLEAR TO AUSCULTATION BILATERALLY. GOOD MOVEMENT OF AIR . HEART:S1, S2 IN A REGULAR RATE AND RHYTHM. NO SIGNIFICANT MURMURS, RUBS OR GALLOPS NOTED . ASSESSMENTS OTHER CHRONIC PAIN - G89.29 (PRIMARY) SACROILIITIS - M46.1 TREATMENT OTHER CHRONIC PAIN PAIN PROCEDURE LOGDATE OF [id number]/20PROCEDURE:BILATERAL SACRO ILIAC JOINT BLOCKAMOUNT OF PRE SEDATENO MORE THEN THIS D/T O2 SAT: PO 10MG VALIUM/PO 10MG OXYCODONERESULT:SIGNIFICANT IMPROVEMENT CONTINUES TODAY NOTES: PATIENT WAS ADVISED TO START A WALKING PROGRAM TO STRENGTHEN LUMBAR PARASPINAL MUSCLES AND IMPROVE MOBILITY. THEY WERE ADVISED THAT THIS WILL IMPROVE WEIGHT LOSS AND ALSO DEPRESSION/FIBROMYALGIA SYMPTOMS. ADVISED TO WALK 10 MINUTES EVERY OTHER DAY ON A FLAT SURFACE. EMPHASIZED THE IMPORTANCE OF DOING THIS CONSISTANTLY AND NOT SPORATICALLY TO AVOID INJURY. PROCEDURE CODES FA211 ESTABILISHED PATIENT [facility] CHARGE DISPOSITION & COMMUNICATION FOLLOW UP 3 MONTHS (REASON: SACROILIITIS) ELECTRONICALLY SIGNED BY JANET OWENS ON 10/11/2020 AT 12:00 PM EST DISCLAIMER : THIS IS A VISIT SUMMARY EXTRACTED FROM THE [employer] CHART. IT IS NOT A COPY OF THE [employer] PROGRESS NOTE. AYUSH
== END ==
LOC: M PAIN 10:15
PROVIDERS: ATTEND Nurse Practitioner Family
DX: M46.1 Sacroiliitis, not elsewhere classified (principal); G89.29 Other chronic pain; G25.81 Restless legs syndrome; G47.33 Obstructive sleep apnea (adult) (pediatric); Z98.84 Bariatric surgery status; Z86.59 Personal history of other mental and behavioral disorders; Z79.899 Other long term (current) drug therapy

== ENCOUNTER 2020-11-04 19:13 | Observation (INO) | payer MEDICARE, MEDICAID ==
[~2020-11-04] VITALS: Ht 160 cm; Wt 106.3 kg
[2020-11-04] VITALS (8 sets, daily range): BP systolic 119–179; BP diastolic 63–98
[~2020-11-04 19:13] MED LIST changes: -BUSP10TA
--- NOTE | 2020-11-04 19:59 | REPVR ---
PROCEDURE INFORMATION: Exam: CT Head Without Contrast Exam date and time: 11/04/2020 7:32 PM Age: 60 years old Clinical indication: Altered mental status/memory loss; Additional info: CVA - nursing interventions must not delay CT TECHNIQUE: Imaging protocol: Computed tomography of the head without contrast. Radiation optimization: All CT scans at this facility use at least one of these dose optimization techniques: automated exposure control; mA and/or kV adjustment per patient size (includes targeted exams where dose is matched to clinical indication); or iterative reconstruction. Other technique: STROKE PROTOCOL was implemented. COMPARISON: Thyroid, ST head+neck US 01/28/2019 9:30 AM FINDINGS: Brain: Normal. No hemorrhage. Unremarkable white matter. No mass effect. Cerebral ventricles: No ventriculomegaly. Bones/joints: Unremarkable. No acute fracture. Paranasal sinuses: Visualized sinuses are unremarkable. No fluid levels. Mastoid air cells: Visualized mastoid air cells are well aerated. Soft tissues: Unremarkable. IMPRESSION: Negative noncontrast head CT. [place] Stroke Program Early CT Score (ASPECTS) = 10/10. Electronically signed by: Julio Cesar Charles On 11/04/2020 19:59:30 PM
--- NOTE | 2020-11-04 19:59 | REP ---
INDICATION: CVA COMPARISON: 08/07/2007 TECHNIQUE: Portable AP view of the chest FINDINGS: The mediastinum and cardiac silhouette are stable and within normal limits for portable technique. The lung joe are clear without acute consolidation, effusion, or pneumothorax. Skeletal structures are intact. IMPRESSION: No acute cardiopulmonary process appreciated. <Electronically signed by Audi Jacob > 11/04/201954
[2020-11-04 20:05] LABS: BASO # 0.1 10^3/uL (0.0-0.2); BASO % 0.6 % (0.0-1.0); EOS # 0.1 10^3/uL (0.0-0.5); EOS % 1.1 % (0.0-3.0); HEMATOCRIT 43.4 % (36.0-47.0); HEMOGLOBIN 13.4 g/dl (12.0-15.5); LYMPH # 2.2 10^3/uL (1.5-5.0); MEAN CORPUSCULAR HEMOGLOBIN 27.4 pg (27.0-33.0); MEAN CORPUSCULAR HGB CONC 30.9 g/dl (32.0-36.5); MEAN CORPUSCULAR VOLUME 88.8 fl (80.0-96.0); MONO # 0.6 10^3/uL (0.0-0.8); MONO % 6.8 % (0.0-5.0); NEUTROPHILS # 6.1 10^3/uL (1.5-8.5); NEUTROPHILS % 66.9 % (36.0-66.0); PLATELET COUNT, AUTOMATED 271 10^3/uL (150-450); RED BLOOD COUNT 4.89 10^6/uL (4.00-5.40)
[2020-11-04 20:16] LABS: INR 0.92; PARTIAL THROMBOPLASTIN TIME 27.4 SECONDS (24.2-38.5); PROTHROMBIN TIME 12.6 SECONDS (12.5-14.3)
[2020-11-04 20:27] LABS: CPK CREATINE PHOSPHOKINASE 163 U/L (26-192); MB/CK RELATIVE INDEX 2.45 (< OR =4); TROPONIN I < 0.02 NG/ML (< 0.10)
[2020-11-04] MEDS ORDERED: MULT-90 PO (20:31)
[2020-11-04] MEDS ORDERED: ISOVUE-370 76% 100ML VIAL As Ordered ONE (21:08)
[2020-11-04 21:24] LABS: RSV AMPLIFICATION NEGATIVE (NEGATIVE)
--- NOTE | 2020-11-04 21:55 | REPVR ---
PROCEDURE INFORMATION: Exam: CT Angiography Neck With Contrast Exam date and time: 11/04/2020 9:13 PM Age: 60 years old Clinical indication: Weakness; Additional info: Right sided weakness TECHNIQUE: Imaging protocol: Computed tomography angiography of the neck with intravenous contrast. 3D rendering (Not supervised by radiologist): MIP and/or 3D reconstructed images were created by the technologist. Radiation optimization: All CT scans at this facility use at least one of these dose optimization techniques: automated exposure control; mA and/or kV adjustment per patient size (includes targeted exams where dose is matched to clinical indication); or iterative reconstruction. Contrast material: ISOVUE 370; Contrast volume: 100 ml; Contrast route: INTRAVENOUS (IV); COMPARISON: Thyroid, ST head+neck US 01/28/2019 9:30 AM FINDINGS: Right common carotid artery: No stenosis. No dissection or occlusion. Right internal carotid artery: No stenosis of the extracranial segment. No dissection or occlusion. Right external carotid artery: No occlusion or stenosis of the origin. Right vertebral artery: Small right vertebral artery compared to the left. Left common carotid artery: No stenosis. No dissection or occlusion. Left internal carotid artery: No stenosis of the extracranial segment. No dissection or occlusion. Left external carotid artery: No occlusion or stenosis of the origin. Left vertebral artery: No stenosis. No dissection or occlusion. Submandibular/Parotid glands: Atrophic left submandibular gland. Bones/joints: No acute fracture. Soft tissues: Normal. No significant soft tissue swelling. IMPRESSION: 1. Atrophic left submandibular gland. 2. Negative CTA neck. No significant stenosis and no occlusion. REFERENCES: NASCET CRITERIA. The degree of internal carotid artery stenosis is based on NASCET criteria. Normal is no stenosis. Mild is less than 50% stenosis. Moderate is 50-69% stenosis. Severe is 70% to 99% stenosis. Total occlusion is no detectable patent lumen. Electronically signed by: Julio Cesar Charles On 11/04/2020 21:55:44 PM
--- NOTE | 2020-11-04 21:59 | REPVR ---
PROCEDURE INFORMATION: Exam: CT Angiography Head With Contrast Exam date and time: 11/04/2020 9:13 PM Age: 60 years old Clinical indication: Weakness; Additional info: Right sided facial droop TECHNIQUE: Imaging protocol: Computed tomography angiography of the head with intravenous contrast. 3D rendering (Not supervised by radiologist): MIP and/or 3D reconstructed images were created by the technologist. Radiation optimization: All CT scans at this facility use at least one of these dose optimization techniques: automated exposure control; mA and/or kV adjustment per patient size (includes targeted exams where dose is matched to clinical indication); or iterative reconstruction. Contrast material: ISOVUE 370; Contrast volume: 100 ml; Contrast route: INTRAVENOUS (IV); COMPARISON: CT Head without contrast 11/04/2020 7:27 PM FINDINGS: ANTERIOR CIRCULATION: Right internal carotid artery: Unremarkable. Intracranial segment is patent with no significant stenosis. No aneurysm. Right middle cerebral artery: Unremarkable. No occlusion or significant stenosis. No aneurysm. Right anterior cerebral artery: Unremarkable. No occlusion or significant stenosis. No aneurysm. Left internal carotid artery: Unremarkable. Intracranial segment is patent with no significant stenosis. No aneurysm. Left middle cerebral artery: Unremarkable. No occlusion or significant stenosis. No aneurysm. Left anterior cerebral artery: Unremarkable. No occlusion or significant stenosis. No aneurysm. POSTERIOR CIRCULATION: Right vertebral artery: Small right vertebral artery which gives off cerebellar branches and thread-like contribution to the basilar artery. Left vertebral artery: Unremarkable. No occlusion or significant stenosis. No aneurysm. Basilar artery: Unremarkable. No occlusion or significant stenosis. No aneurysm. Right posterior cerebral artery: Patent right posterior communicating artery which is dominant supply to the right posterior cerebral artery which is otherwise unremarkable. Left posterior cerebral artery: Patent left posterior communicating artery which is dominant supply to the left posterior cerebral artery which is otherwise unremarkable. Brain: No definite mass, mass effect, or midline shift. Cerebral ventricles: No ventriculomegaly. Paranasal sinuses: Minimal right maxillary and ethmoid sinus mucosal thickening. Bones/joints: Unremarkable. No acute fracture. Soft tissues: Unremarkable. IMPRESSION: 1. Minimal right maxillary and ethmoid sinus disease. 2. Negative CTA head. No significant stenosis and no occlusion. Electronically signed by: Julio Cesar Charles On 11/04/2020 21:59:41 PM
[2020-11-04] MEDS ORDERED: ASPIRIN 81 MG CHEW TABLET PO ONE (22:30)
[2020-11-04] MEDS ORDERED: MAALOX 30 ML SUSP *UDC PO PRN (22:30)
[2020-11-04] MEDS ORDERED: ACETAMINOPHEN TAB 650MG DOSE (2X325MG) PO PRN (22:30)
[2020-11-04] MEDS ORDERED: MOM 30ML SUSPENSION UDC PO PRN (22:30)
--- NOTE | 2020-11-04 22:37 | HPEPDOC ---
[facility] Medical History & Physical Date of Admission Nov 04, 2020 Date of Service: Nov 04, 2020 Primary Care Physician: Korin Lemus NP [facility] Attending Physician: YOLANDA OEWNS MD History and Physical TIME OF SERVICE: 1059pm CHIEF COMPLAINT: facial droop HISTORY OF PRESENT ILLNESS: This 60 yr old female developed sudden onset right facial droop, slurred speech and difficulties getting her words out at about 645PM. Her son in law insisted that she come to the ER for evaluation. She denied drooling, denied drooping objects, denied falling, denied having arm or leg weakness and denied having paresthesias. Her NIHSS was 2 based on the presence of dysarthria and paresthesia; consulted (Teleneurologist) who didnt feel that tPA was warranted bc the patients symptoms were improving and recommended admission to complete the stroke work-up. added that this may be related to the social/family stressors that the patient has. REVIEW OF SYSTEMS: 12-point review of systems negative except as listed in HPI PAST MEDICAL/ SURGICAL HISTORY: Chronic HTN Neuropathy Depression DLP PARISA Stage 1 adenocarcinoma of the colon s/p partial colectomy in remission Dumping syndrome (per patient) Class 1 obesity / hx of gastric bypass SOCIAL HISTORY: She doesnt smoke, drink or use recreational drugs and lives with her boyfriend of 17 years. Her daughter, son-in law and 2 grandchildren live next door FAMILY HISTORY: Father CHF / Mother rectal cancer / Sisters recently diagnosed stage 3 lung cancer, breast cancer, ovarian cancer ALLERGIES: Please see below. HOME MEDICATIONS: Please see below. PHYSICAL EXAMINATION: Vital Signs Date Time Temp Pulse Resp B/P (MAP) Pulse Ox O2 Delivery O2 Flow Rate FiO2 11/04/20 19:18 84 20 184/100 99 11/04/20 19:25 Room Air 11/04/20 20:12 97.0 GENERAL APPEARANCE: NAD/ seated in hospital bed HEENT: EOMI / MMM&P CARDIOVASCULAR: RRR/NMRG/ no BLE edema LUNGS: CTAB on RA ABDOMEN: obese/ soft & NT on palpation MUSCULOSKELETAL: NCAT / RENNY x 4 NEUROLOGICAL: CN 2-12 intact, speech not dysarthric at the time of my assessment, no nystagmus, tongue midline, strength 5/5 at all extremities, no finger to nose dysmetria PSYCHIATRIC: A&O x 3 /able to understand and follow all commands LABORATORY DATA: Immature Granulocyte % (Auto) 0.6, Neutrophils (%) (Auto) 66.9H, Lymphocytes (%) (Auto) 24.0, Monocytes (%) (Auto) 6.8H, Eosinophils (%) (Auto) 1.1, Basophils (%) (Auto) 0.6, Neutrophils # (Auto) 6.1, Lymphocytes # (Auto) 2.2, Monocytes # (Auto) 0.6, Eosinophils # (Auto) 0.1, Basophils # (Auto) 0.1, Nucleated Red Blood Cells % (auto) 0.0, Prothrombin Time 12.6, Prothromb Time International Ratio 0.92, Activated Partial Thromboplast Time 27.4, Total Creatine Kinase 163, Creatine Kinase MB 4.0H, Creatine Kinase MB Relative Index 2.45, Troponin I < 0.02 11/04/20 20:03: POC Glucose (Misc Panel) 105, POC Sodium (Misc Panel) 144, POC Potassium (Misc Panel) 3.9, POC Chloride (Misc Panel) 109, POC Total CO2 (Misc Panel) 26.0, POC Blood Urea Nitrogen (Misc Panel 16, POC Ionized Calcium (Misc Panel) 4.8, POC Creatinine (Misc Panel) 0.7, POC Hematocrit (Misc Panel) 43.0 11/04/20 20:33: Coronavirus (COVID-19)(PCR) NEGATIVE, Influenza Type A (RT-PCR) NEGATIVE, Influenza Type B (RT-PCR) NEGATIVE, Respiratory Syncytial Virus (PCR) NEGATIVE IMAGING: CT head IMPRESSION: Negative noncontrast head CT. [place] Stroke Program Early CT Score (ASPECTS) = 10/10. Chest xray IMPRESSION: No acute cardiopulmonary process appreciated. CTA head IMPRESSION: 1. Minimal right maxillary and ethmoid sinus disease. 2. Negative CTA head. No significant stenosis and no occlusion. CTA neck IMPRESSION: 1. Atrophic left submandibular gland. 2. Negative CTA neck. No significant stenosis and no occlusion. MICROBIOLOGY: COVID 19, Influenza A/B, RSV negative ASSESSMENT: is a 60 yr old w a hx of HTN, obesity, gastric bypass, neuropathy, depression, DLP and colon cancer in remission who presented w c/o transient right facial droop, slurred speech and word finding difficulties that may be due to a TIA or Conversion disorder. PLAN: 1 TIA vs CVA vs Conversion Disorder NIHSS = 2 CT head, CTA head and neck unremarkable FELISHA Scale to distinguish btw stroke and stroke mimic = 2 points = stroke possible Reason for admission: ABCD2 Score = 3 = hospital admission is recommended for all patients with suspected TIAs to expedite diagnostic testing and stroke subtyping Plan: admit to Medical floor / telemetry /fall precautions / ASA 325 mg PO now, then 81mg daily / PT/OT consults / pending lipid panel c/w current dose of rosuvastatin / f/u A1C, MRI brain & 2D Echo with bubble study 2. Chronic HTN Plan: Lisinopril 3. Neuropathy Plan: Gabapentin 4. Depression Plan: Buspirone, Vilazodone 5. DLP Plan: Rosuvastatin 6. Class 2 obesity BMI 39.4 complicates care She has had bariatric surgery Plan: f/u A1C / the patient can f/u w her PCP for sleep apnea screening, sorority supervisor consult, to discuss staring Saxenda, which is indicated in patients with a BMI >27 with co-existing DM, HTN or dyslipidemia to help with weight control as an adjunct to exercise / recommend cardiovascular exercise for 40 min 4-5 days a week DVT Px w Lovenox Dispo: home pending clinical course Home Medications Scheduled Aspirin (Children's Aspirin) 81 Mg Tab.chew, 81 MG PO DAILY Buspirone HCl (Buspirone HCl) 10 Mg Tablet, 10 MG PO BID Cholecalciferol (Vitamin D3) (Vitamin D3) 50 Mcg Capsule, 50 MCG PO DAILY Gabapentin (Gabapentin) 300 Mg Cap, 300 MG PO TID Lisinopril (Lisinopril) 10 Mg Tablet, 10 MG PO DAILY Multivitamin (Multivitamin) 1 Each Tablet, 1 EACH PO DAILY Omeprazole (Omeprazole) 40 Mg Capsule.dr, 40 MG PO BID Rosuvastatin Calcium (Crestor) 10 Mg Tab, 10 MG PO DAILY Vilazodone HCl (Viibryd) 40 Mg Tablet, 40 MG PO DAILY Allergies Coded Allergies: No Known Allergies (Unverified , 03/02/19) A-FIB/CHADSVASC A-FIB History Current/History of A-Fib/PAF?: No Current PO Anticoag Therapy: No YOLANDA OWENS MD Nov 04, 2020 22:37
[2020-11-05] VITALS (9 sets, daily range): BP systolic 114–169; BP diastolic 55–82
[2020-11-05] MEDS ORDERED: busPIRone 10 MG TAB PO ONE (00:30)
[2020-11-05] MEDS ORDERED: OMEPRAZOLE 20 MG CAP PO ONE (00:30)
[2020-11-05] MEDS ORDERED: GABAPENTIN 300 MG CAP PO ONE (00:30)
[2020-11-05 06:42] LABS: BASO # 0.1 10^3/uL (0.0-0.2); BASO % 0.8 % (0.0-1.0); EOS # 0.1 10^3/uL (0.0-0.5); EOS % 2.1 % (0.0-3.0); HEMATOCRIT 38.7 % (36.0-47.0); HEMOGLOBIN 12.3 g/dl (12.0-15.5); LYMPH # 1.9 10^3/uL (1.5-5.0); MEAN CORPUSCULAR HEMOGLOBIN 28.7 pg (27.0-33.0); MEAN CORPUSCULAR HGB CONC 31.8 g/dl (32.0-36.5); MEAN CORPUSCULAR VOLUME 90.2 fl (80.0-96.0); MONO # 0.5 10^3/uL (0.0-0.8); MONO % 8.2 % (0.0-5.0); NEUTROPHILS # 3.9 10^3/uL (1.5-8.5); NEUTROPHILS % 59.6 % (36.0-66.0); PLATELET COUNT, AUTOMATED 215 10^3/uL (150-450); RED BLOOD COUNT 4.29 10^6/uL (4.00-5.40); WHITE BLOOD COUNT 6.6 10^3/uL (4.0-10.0)
[2020-11-05 07:16] LABS: BLOOD UREA NITROGEN 12 MG/DL (7-18); CALCIUM LEVEL 9.1 MG/DL (8.8-10.2); CARBON DIOXIDE LEVEL 27 MEQ/L (21-32); CHLORIDE LEVEL 110 MEQ/L (98-107); CHOLESTEROL LEVEL 189 MG/DL (<200); CHOLESTEROL RISK RATIO 2.907 (<5); CREATININE FOR GFR 0.66 MG/DL (0.55-1.30); GLOMERULAR FILTRATION RATE > 60.0 (>45); GLUCOSE, FASTING 105 MG/DL (70-100); HDL CHOLESTEROL 65 MG/DL (>40); LDL CHOLESTEROL 97 MG/DL (<100); NON-HDL-C 124 MG/DL; POTASSIUM SERUM 3.8 MEQ/L (3.5-5.1); SODIUM LEVEL 143 MEQ/L (136-145); TRIGLYCERIDES LEVEL 136 MG/DL (<150)
[2020-11-05] MEDS: lisinopriL 10 MG TAB PO SCH (07:36)
[2020-11-05] MEDS: ASPIRIN 81 MG CHEW TABLET PO SCH (07:47)
[2020-11-05] MEDS: OMEPRAZOLE 20 MG CAP PO SCH ×2 (07:47→20:19)
[2020-11-05] MEDS: ENOXAPARIN 40MG/0.4ML SYRINGE (J1650 PER 10MG) SC SCH (07:47)
[2020-11-05] MEDS: busPIRone 10 MG TAB PO SCH ×2 (07:47→20:19)
[2020-11-05] MEDS: ROSUVASTATIN 10 MG TAB (CRESTOR) PO SCH (07:48)
[2020-11-05] MEDS: GABAPENTIN 300 MG CAP PO SCH ×3 (07:48→20:18)
--- NOTE | 2020-11-05 08:25 | ECGEPIP ---
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
[2020-11-05] MEDS ORDERED: ENTER DRUG NAME HERE (PATIENT'S OWN MED) PO SCH (09:00)
--- NOTE | 2020-11-05 11:31 | REPVR ---
PROCEDURE INFORMATION: Exam: MR Head Without Contrast Exam date and time: 11/05/2020 11:07 AM Age: 60 years old Clinical indication: Altered mental status/memory loss; Additional info: Right facial droop TECHNIQUE: Imaging protocol: MR of the head without contrast. COMPARISON: CT Head without contrast 11/04/2020 7:27 PM FINDINGS: Brain: There is a punctate focus of high signal abnormality along the left central sulcus on the diffusion sequence consistent with an acute infarct. There are occasional nonspecific foci of high signal abnormality in the cohn radiata and centrum semiovale. These are best seen on the flair images. These foci may represent areas of gliosis, demyelination, and/or chronic ischemic change. Cerebral ventricles: Normal. No ventriculomegaly. Bones/joints: Unremarkable. Paranasal sinuses: Normal as visualized. No acute sinusitis. Mastoid air cells: Normal as visualized. No mastoid effusion. Orbits: Unremarkable. Soft tissues: Unremarkable. IMPRESSION: 1. There is a punctate focus of high signal abnormality along the left central sulcus on the diffusion sequence consistent with an acute infarct. 2. There are occasional nonspecific foci of high signal abnormality in the conh radiata and centrum semiovale. These are best seen on the flair images. These foci may represent areas of gliosis, demyelination, and/or chronic ischemic change. Electronically signed by: Matthew Yuan On 11/05/2020 11:32:01 AM
--- NOTE | 2020-11-05 18:01 | IPNPDOC ---
Text Note Date of Service The patient was seen on 11/05/20. NOTE SUBJECTIVE: -Had episodes of asymptomatic sinus bradycardia, lowest was 28 --> moved to PCU GENERAL APPEARANCE: NAD, conversational HEENT: EOMI, PERRLA, MMM CARDIOVASCULAR: RRR/NMRG/ no BLE edema LUNGS: CTAB on RA ABDOMEN: Obese, normoactive sounds, soft & NT on palpation MUSCULOSKELETAL: NCAT / RENNY x 4 NEUROLOGICAL: CN 3-12 intact however with very mild R facial droop, speech not dysarthric, strength 5/5 at all extremities, no finger to nose dysmetria PSYCHIATRIC: A&O x 3 LABORATORY DATA: reviewed IMAGING: CT head IMPRESSION: Negative noncontrast head CT. [place] Stroke Program Early CT Score (ASPECTS) = 10/10. Chest xray IMPRESSION: No acute cardiopulmonary process appreciated. CTA head IMPRESSION: 1. Minimal right maxillary and ethmoid sinus disease. 2. Negative CTA head. No significant stenosis and no occlusion. CTA neck IMPRESSION: 1. Atrophic left submandibular gland. 2. Negative CTA neck. No significant stenosis and no occlusion. Brain MRI 1. There is a punctate focus of high signal abnormality along the left central sulcus on the diffusion sequence consistent with an acute infarct. 2. There are occasional nonspecific foci of high signal abnormality in the cohn radiata and centrum semiovale. These are best seen on the flair images. These foci may represent areas of gliosis, demyelination, and/or chronic ischemic change. MICROBIOLOGY: COVID 19, Influenza A/B, RSV negative ASSESSMENT: is a 60 yr old w a hx of HTN, obesity, gastric bypass, neuropathy, depression, DLP and colon cancer in remission who presented w a mild right facial droop, slurred speech and word finding difficulties that resolved with persistent mild droop now found to have had a punctate left central sulcus acute infarct. PLAN: 1 CVA: punctate left central sulcus acute infarct. Presenting NIHSS = 2 CT head, CTA head and neck unremarkable FELISHA Scale to distinguish btw stroke and stroke mimic = 2 points = stroke possible Reason for admission: ABCD2 Score = 3 = hospital admission is recommended for all patients with suspected TIA at the time of admission to expedite diagnostic testing and stroke subtyping -ASA 81mg daily -PT/OT consults -continue rosuvastatin -f/u A1C -f/u 2D Echo with bubble study -To discuss with neurology after punctate infarct confirmed by MRI 2. Chronic HTN -Lisinopril 3. Neuropathy -Gabapentin 4. Depression -Buspirone, Vilazodone 5. DLP -Rosuvastatin 6. Class 2 obesity BMI 39.4 complicates care She has had bariatric surgery -f/u A1C / the patient can f/u w her PCP for sleep apnea screening, luggage repairer consult, to discuss staring Saxenda, which is indicated in patients with a BMI >27 with co-existing DM, HTN or dyslipidemia to help with weight control as an adjunct to exercise / recommend cardiovascular exercise for 40 min 4-5 days a week 7. Asymptomatic sinus bradycardia: -placed pads on -moved to PCU and on telemetry -pending TTE DVT Px w Lovenox VS,Fishbone, I+O VS, Fishbone, I+O Laboratory Tests 11/04/20 19:54 11/05/20 06:15 Vital Signs Date Time Temp Pulse Resp B/P (MAP) Pulse Ox O2 Delivery O2 Flow Rate FiO2 11/05/20 15:56 97.5 80 20 114/55 (74) 96 11/05/20 08:00 Room Air KELLIE MACIAS MD Nov 05, 2020 18:00
--- NOTE | 2020-11-05 23:15 | ECGEPIP ---
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
[2020-11-06] VITALS: BP 137/79
[2020-11-06 04:00] VITALS: BP 155/69
[2020-11-06 07:50] VITALS: BP 133/64
[2020-11-06 08:07] LABS: HEMATOCRIT 36.7 % (36.0-47.0); HEMOGLOBIN 11.5 g/dl (12.0-15.5); MEAN CORPUSCULAR HEMOGLOBIN 27.8 pg (27.0-33.0); MEAN CORPUSCULAR HGB CONC 31.3 g/dl (32.0-36.5); MEAN CORPUSCULAR VOLUME 88.9 fl (80.0-96.0); PLATELET COUNT, AUTOMATED 219 10^3/uL (150-450); RED BLOOD COUNT 4.13 10^6/uL (4.00-5.40)
[2020-11-06] MEDS ORDERED: ASPI81CH8 PO (08:10)
[2020-11-06 08:28] LABS: BLOOD UREA NITROGEN 13 MG/DL (7-18); CALCIUM LEVEL 8.6 MG/DL (8.8-10.2); CARBON DIOXIDE LEVEL 28 MEQ/L (21-32); CHLORIDE LEVEL 109 MEQ/L (98-107); CREATININE FOR GFR 0.67 MG/DL (0.55-1.30); GLOMERULAR FILTRATION RATE > 60.0 (>45); GLUCOSE, FASTING 100 MG/DL (70-100); POTASSIUM SERUM 3.9 MEQ/L (3.5-5.1); SODIUM LEVEL 144 MEQ/L (136-145)
--- NOTE | 2020-11-06 08:35 | DS.PDOC ---
Discharge Summary General Date of Admission Nov 04, 2020 at 22:27 Date of Discharge 11/06/2020 Attending Physician: KELLIE MACIAS MD Discharge Summary PROCEDURES PERFORMED DURING STAY: None ADMITTING DIAGNOSES: 1. Facial droop DISCHARGE DIAGNOSES: Acute punctate left central sulcus acute CVA Chronic HTN Neuropathy Depression HLD PARISA Stage 1 adenocarcinoma of the colon s/p partial colectomy in remission Class 3 obesity s/p gastric bypass COMPLICATIONS/CHIEF COMPLAINT: Facial Droop. HISTORY OF PRESENT ILLNESS: 60 yr old W who developed sudden onset right facial droop, slurred speech and difficulties getting her words out approximately 1 hour before presentation and h er son in law insisted that she come to the ER for evaluation. She denied drooling, denied drooping objects, denied falling, denied having arm or leg weakness and denied having paresthesias. HOSPITAL COURSE: Her NIHSS was 2 based on the presence of dysarthria and paresthesia; consulted (Teleneurologist) who didnt feel that tPA was warranted bc the patients symptoms were improving and recommended admission to complete the stroke work-up. added that this may be related to the social/family stressors that the patient has. Initial CT head, CTA head were negative for acute clinically significant pathology. MRI showed a punctate left central sulcus acute infarct. TTE with bubble was done and final results are pending. Her course was c/b episode of asymptomatic sinus bradycardia to HR 20s for which she was upgrade to the PCU. HR normalized and no other telemetry events were noted. I spoke with Dr. Staton after MRI results who recommended ASA81 only as she did not have significant vascular stenosis noted on imaging. She is now being discharged home with PCP f/u and cardiology referral. DISCHARGE MEDICATIONS: Please see below. ALLERGIES: Please see below. PHYSICAL EXAMINATION ON DISCHARGE: VITAL SIGNS: Please see below. GENERAL APPEARANCE: NAD, conversational HEENT: EOMI, PERRLA, MMM CARDIOVASCULAR: RRR/NMRG/ no BLE edema LUNGS: CTAB on RA ABDOMEN: Obese, normoactive sounds, soft & NT on palpation MUSCULOSKELETAL: NCAT / RENNY x 4 NEUROLOGICAL: CN 3-12 intact however with trace R facial droop, speech not dysarthric, strength 5/5 at all extremities, no finger to nose dysmetria PSYCHIATRIC: A&O x 3 LABORATORY DATA: see below IMAGING: CT head IMPRESSION: Negative noncontrast head CT. [place] Stroke Program Early CT Score (ASPECTS) = 10/10. Chest xray IMPRESSION: No acute cardiopulmonary process appreciated. CTA head IMPRESSION: 1. Minimal right maxillary and ethmoid sinus disease. 2. Negative CTA head. No significant stenosis and no occlusion. CTA neck IMPRESSION: 1. Atrophic left submandibular gland. 2. Negative CTA neck. No significant stenosis and no occlusion. Brain MRI 1. There is a punctate focus of high signal abnormality along the left central sulcus on the diffusion sequence consistent with an acute infarct. 2. There are occasional nonspecific foci of high signal abnormality in the cohn radiata and centrum semiovale. These are best seen on the flair images. These foci may represent areas of gliosis, demyelination, and/or chronic ischemic change. MICROBIOLOGY: COVID 19, Influenza A/B, RSV negative PROGNOSIS: Good ACTIVITY: As tolerated DIET: 2g sodium DISCHARGE PLAN: Home with cardiology referral DISPOSITION: Home DISCHARGE INSTRUCTIONS: 1. Home with PCP f/u and cardiology referral. ITEMS TO FOLLOWUP ON ON OUTPATIENT: 1. Punctate CVA DISCHARGE CONDITION: Stable. TIME SPENT ON DISCHARGE: 45 minutes. Vital Signs/I&Os Vital Signs Date Time Temp Pulse Resp B/P (MAP) Pulse Ox O2 Delivery O2 Flow Rate FiO2 11/06/20 07:50 98.0 59 16 133/64 (87) 95 Room Air I&O- Last 24 Hours up to 6 AM 11/06/20 06:00 Intake Total 480 ml Output Total 0 ml Balance 480 ml Laboratory Data Labs 24H Laboratory Tests 2 11/06/20 07:50: Nucleated Red Blood Cells % (auto) 0.0 CBC/BMP Laboratory Tests 11/06/20 07:50 Discharge Medications Scheduled Aspirin (Children's Aspirin) 81 Mg Tab.chew, 81 MG PO DAILY Buspirone HCl (Buspirone HCl) 10 Mg Tablet, 10 MG PO BID, (Reported) Cholecalciferol (Vitamin D3) (Vitamin D3) 50 Mcg Capsule, 50 MCG PO DAILY, (Reported) Gabapentin (Gabapentin) 300 Mg Cap, 300 MG PO TID, (Reported) Lisinopril (Lisinopril) 10 Mg Tablet, 10 MG PO DAILY, (Reported) Multivitamin (Multivitamin) 1 Each Tablet, 1 EACH PO DAILY, (Reported) Omeprazole (Omeprazole) 40 Mg Capsule.dr, 40 MG PO BID, (Reported) Rosuvastatin Calcium (Crestor) 10 Mg Tab, 10 MG PO DAILY, (Reported) Vilazodone HCl (Viibryd) 40 Mg Tablet, 40 MG PO DAILY, (Reported) Allergies Coded Allergies: No Known Allergies (Unverified , 03/02/19) KELLIE MACIAS MD Nov 06, 2020 08:22
[2020-11-06 08:51] VITALS: BP 133/64
[2020-11-06] MEDS: GABAPENTIN 300 MG CAP PO SCH (08:51)
[2020-11-06] MEDS: lisinopriL 10 MG TAB PO SCH (08:51)
[2020-11-06] MEDS: ASPIRIN 81 MG CHEW TABLET PO SCH (08:51)
[2020-11-06] MEDS: ROSUVASTATIN 10 MG TAB (CRESTOR) PO SCH (08:52)
[2020-11-06] MEDS: busPIRone 10 MG TAB PO SCH (08:52)
[2020-11-06] MEDS: OMEPRAZOLE 20 MG CAP PO SCH (08:52)
[2020-11-06] MEDS: ENOXAPARIN 40MG/0.4ML SYRINGE (J1650 PER 10MG) SC SCH (08:53)
--- NOTE | 2020-11-08 12:04 | ECHO ---
DATE OF PROCEDURE: 11/05/2020 Age: 60 Gender: Female Height: 63 inches Weight: 230 pounds REFERRING PHYSICIAN: Erika Muse M.D. INDICATIONS: Acute stroke. MEASUREMENTS: 2D Measurements: Aortic root 3.0 cm Proximal ascending aorta 3.1 cm Left atrium 4.5 cm Left ventricle diastole 4.8 cm Left ventricle systole 2.5 cm Intraventricular septum 1.11 cm Posterior wall 0.98 cm Inferior vena cava 1.6 cm Doppler Measurements: No aortic stenosis No aortic regurgitation Aortic valve velocity 181 cm/s LVOT velocity 136 cm/s LVOT VTI 30.8 cm Trace mitral regurgitation Mitral E velocity 93.3 cm/s Mitral A velocity 89.8 cm/s Mitral deceleration time 206 msec Trace tricuspid regurgitation within normal limits No pulmonic regurgitation Pulmonary artery acceleration time 151 msec (normal) DESCRIPTION: Rhythm was sinus. This was a 2D, M-mode, color flow Doppler, and pulsed wave Doppler examination and included M-mode and Doppler (continuous wave, pulse wave, color). Image quality was adequate. CONCLUSIONS: * Normal left ventricle internal dimensions and wall thickness. Normal regional LV wall motion and wall thickening. Normal LV systolic function. LVEF 70% by visual estimate. Normal LV diastolic function. * Moderate left atrial dilatation. * Very mild aortic valve sclerosis of a 3-cuspid aortic valve. No aortic regurgitation. * Saline bubble study was positive for detection of right atrium to left atrium shunting with a moderate amount of bubbles appearing in the left atrium and left ventricle. Suggestive of patent foramen ovale, but differential diagnosis would include atrial septal defect. MTDD
== END 2020-11-06 12:28 | disposition home or self-care (01) ==
LOC: M ED 19:13 → M ED INP 19:14 → INTOOBSV 22:27 → UNDOADMOB 22:27 → M ED INP 22:27 → ENRESERV 11-05 02:44 → M MSPAV 11-05 03:13 → M ED INP 11-05 03:13 → M MSPAV 11-05 03:13 → M PCU 11-05 11:11 → M MSPAV 11-05 11:11 → M PCU 11-05 11:11 → UNDODISOB 11-06 12:28
PROVIDERS: ADMIT Internal Medicine; ATTEND Internal Medicine
DX: I63.9 Cerebral infarction, unspecified (principal); I10 Essential (primary) hypertension; G90.09 Other idiopathic peripheral autonomic neuropathy; E78.49 Other hyperlipidemia; D50.9 Iron deficiency anemia, unspecified; E66.9 Obesity, unspecified; Z98.84 Bariatric surgery status; Z79.82 Long term (current) use of aspirin; Z79.899 Other long term (current) drug therapy; Z85.038 Personal history of other malignant neoplasm of large intestine; F32.9 Major depressive disorder, single episode, unspecified
CPT/HCPCS: 36415; 70450; 70496; 70498; 70551; 71045; 80047; 80048; 80061; 82550; 82553; 83036; 84484; 85025; 85027; 85610; 85730; 86850; 86900; 86901; 87631; 93005; 93041; 93306; 94760; 96372; 97165; 99285; G0378; J1650; Q9967

== ENCOUNTER → 2020-11-17 | Outpatient (CLI) | payer MEDICARE, MEDICAID ==
[~2020-11-17] MED LIST changes: +ASPI81CH8 PO; +MULT-90 PO
--- NOTE | 2020-11-21 23:50 | ECWPNPC ---
PATIENT NAME: CHRISTAL HARRIS : 1960 GENDER: FEMALE VISIT DATE: 11/17/2020 DISCHARGE DATE: 11/17/20 1616 VISIT LOCKED DATE TIME: PHYSICIAN: ANDREIA WALDROP RESOURCE: ANDREIA WALDROP REASON FOR APPOINTMENT 1. INCREASED PAIN/WANTS PROCEDURE HISTORY OF PRESENT ILLNESS GENERAL: BEING SEEN ON AN URGENT BASIS DUE TO INCREASE IN LOW BACK PAIN. PAIN HAS INCREASED OVER THE PAST FEW WEEKS. DENIES PRECIPITATING EVENT. HAS RESPONDED WELL TO BILATERAL SACROILIAC JOINT BLOCK FOR THIS TYPE OF PAIN IN THE PAST. HAD A MINI STROKE AND WAS SEEN AT [facility] EMERGENCY ROOM ON 11/04/2020. PATIENT WILL BE SEEING A CARDIAC SURGEON AND POSSIBLY HAVING A VALVE REPLACED. PATIENT STATES SHE" HAS A HOLE IN HER HEART". INFORMED PATIENT THAT WE WOULD NEED MEDICAL CLEARANCE FROM DR. CEJA HER DENTAL CLAIMS PROCESSOR BEFORE PURSUING INJECTION THERAPY.- -. - -. FALL RISK SCREENING: SCREENING :NO FALLS REPORTED IN THE LAST YEAR PAIN SCREENING: PATIENT HAS A COMPLAINT OF ACUTE OR CHRONIC PAIN :YES LOCATION OF PAIN: LOW BACK, LEFT LEG INTENSITY OF PAIN (SCALE OF 1 TO 10):7 LOW BACK, 6; LEFT LEG 8 WHAT DOES YOUR PAIN FEEL LIKE:BURNING, SHARP DURATION:CONTINOUS, CONSTANT, STEADY, AWAKENS FROM SLEEP PAIN IS INCREASED BY:ACTIVITIES, PROLONGED STANDING PAIN IS DECREASED BY:USE OF PAIN MEDICATIONS TREATMENT/MEDICATIONS USED TO MANAGE PAIN:OTC PAIN RELIEVERS, NSAIDS, TOPICAL CORTICOSTEROIDS, PHYSICAL THERAPY PAIN HAS INTERFERED WITH THE FOLLOWING:WALKING ABILITY, EMPLOYMENT, SLEEP, HOUSEWORK, RELATIONSHIP WITH OTHERS, ENJOYMENT OF LIFE, MOOD PLAN/GOALS/TREATMENT/INTERVENTION/FOLLOW UP:SEE PLAN PAIN CENTER INTAKE QUESTIONS: DO YOU HAVE A HISTORY OF MRSA? :NO DO YOU TAKE A BLOOD THINNERS? :NO DO YOU HAVE ANY BLEEDING DISORDERS? :NO ANY NEW NUMBNESS OR WEAKNESS IN YOUR LEGS OR ARMS? :YES LEFT FOOT NUMBNESS IMPROVED S/P INJECTION BUT IS RETURNING ANY PACEMAKER,DEFIBRILLATOR, OR DORSAL COLUMN STIMULATOR? :NO DO YOU HAVE ANY RASHES OR OPEN SORES? :NO ARE YOU ALLERGIC TO IV DYE? :NO ARE YOU DIABETIC? :NO ANY NEW PROBLEMS WITH YOUR MEDICATIONS? :NO HAVE YOU RECEIVED A VACCINE IN THE PAST 30 DAYS? :NO DO YOU PLAN TO RECEIVE A VACCINE IN THE NEXT 21 DAYS? :NO DO YOU NEED ANY PRESCRIPTION? :NO DO YOU TAKE ANY IMMUNOSUPPRESSIVE MEDICATIONS? :NO IS THERE A CHANCE YOU COULD BE ? :NO ARE YOU BREAST FEEDING? :NO CURRENT MEDICATIONS TAKING CRESTOR 10 MG TABLET 1 TABLET ORALLY ONCE A DAY TAKING BUSPIRONE HCL 10 MG TABLET 1 TABLET ORALLY BID TAKING VIIBRYD 40 MG TABLET 1 CAP ORALLY DAILY TAKING OMEPRAZOLE 40 MG CAPSULE DELAYED RELEASE 1 CAPSULE ORALLY BID TAKING VITAMIN B12 TR 2000 MCG TABLET EXTENDED RELEASE 1 TABLET ORALLY ONCE A DAY TAKING VITAMIN B1 100 MG TABLET 1 TABLET ORALLY ONCE A DAY TAKING CALCIUM + D3 600-200 MG-UNIT TABLET 1 TABLET WITH A MEAL ORALLY ONCE A DAY TAKING MULTIVITAMIN ADULTS - TABLET DIRECTED ORALLY TAKING LISINOPRIL 10 MG TABLET 1 TABLET ORALLY ONCE A DAY TAKING MAY HAVE - - IRON INFUSIONS INTRAVENOUSLY Q 6 MOS TAKING GABAPENTIN 300 MG TABLET 1 CAPSULE ORALLY FOR PAIN Q8H TID NOT-TAKING VOLTAREN 1 % GEL DIRECTED TRANSDERMAL NOT-TAKING IBUPROFEN 800 MG TABLET 1 TABLET WITH FOOD OR MILK NEEDED ORALLY BID PRN NOT-TAKING FUROSEMIDE 40 MG TABLET 1 TABLET ORALLY ONCE A DAY NOT-TAKING ROPINIROLE HCL 1 MG TABLET 1 1/2 TABS ORALLY BID NOT-TAKING METHYLPREDNISOLONE (DREW) 4MG USE DIRECTED X 6 DAYS NOT-TAKING PANTOPRAZOLE SODIUM 40 MG TABLET DELAYED RELEASE 1 TABLET ORALLY ONCE A DAY NOT-TAKING VITAMIN D (ERGOCALCIFEROL) 00961 UNIT CAPSULE 1 CAPSULE ORALLY NOT-TAKING GABAPENTIN 100 MG CAPSULE 1 CAPSULE ORALLY ONCE DAILY NEEDED MEDICATION LIST REVIEWED AND RECONCILED WITH THE PATIENT PAST MEDICAL HISTORY HTN ANEMIA OBESITY S/P GASTRIC BYPASS HISTORY OF FLUID RETENTION BLADDER MESH DEGENERATIVE DISC DISEASE RESTLESS LEG SYNDROME DEPRESSION ANXIETY LOW BACK AND LEFT HIP PAIN RADIATING DOWN LEFT LEG TO FOOT KING CYST BILATERAL LAURITA BILATERAL CARPAL TUNNEL BILATERAL LEG WEAKNESS AND PARESTHESIAS AROUND THE KNEE SWELLING IN FEET STROKE ALLERGIES N.K.D.A. SURGICAL HISTORY GASTRIC BYPASS 04/27/2008 BREAST REDUCTION 07/05/15 ROTATOR CUFF LEFT 2014 BLADDER REPAIR 1991,05/2003 HEMMORIOD REMOVAL 2015 HYSTERECTOMY 02/1995 GALLBLADDER REMOVED 02/1995 TONSILS REMOVED 1981 JACKELIN REMOVED FROM LEFT SIDE OF FACE 1970 COLON RESECTION FOR COLON CA 2017 RIGHT ROTATOR CUFF REPAIR AND RIGHT BICEP REPAIR 09/2019 FAMILY HISTORY FATHER: , DEPRESSION ,CHF, DIAGNOSED WITH HYPERTENSION, DIABETES, OTHER MALIGNANT NEOPLASM OF UNSPECIFIED SITE, OTHER SPECIFIED CONDITIONS INFLUENCING HEALTH STATUS MOTHER: , RETUM CANCER, OTHER MALIGNANT NEOPLASM OF UNSPECIFIED SITE SIBLINGS: ALIVE, HYPERLIPIDEMIA,HTN,ASTHMA,DEPRESSION 2 SISTER(S) . 2DAUGHTER(S) - HEALTHY. DAD-SKIN CA, HIGH CHOLESTEROL, ? ASTHMA\\NMOM-RECTAL CA\\NSISTER-ASHTMA, DISABLED DUE TO SPINAL CORD INJURY, LUNG CA. SOCIAL HISTORY GENERAL: TOBACCO USE ARE YOU A:NONSMOKER LATEX QUESTIONNAIRE LATEX ALLERGY : HAVE YOU EVER DEVELOPED ANY TYPE OF REACTION AFTER HANDLING LATEX PRODUCTS SUCH RUBBER GLOVES, CONDOMS, DIAPHRAGMS, BALLOONS, SOCKS, OR UNDERWEAR?NO LATEX ALLERGY : HAVE YOU EVER DEVELOPED ANY TYPE OF REACTION DURING OR AFTER DENTAL APPOINTMENT, VAGINAL/RECTAL EXAMINATION, SURGICAL PROCEDURE, OR ANY OTHER EXPOSURE?NO DATE ASKED : 08/14/2020 LATEX RISK : HAVE YOU EVER HAD ANY DIFFICULTY BREATHING OR HIVES AFTER EATING OR HANDLING ANY FRUITS, OR VEGETABLES; SUCH KIWI, BANANAS, STONE FRUITS, OR CHESTNUTSNO LATEX RISK : DO YOU HAVE A PREVIOUS PERSONAL HISTORY OF MORE THAN NINE SURGERIES, SPINA BIFIDA, OR REPEATED CATHERIZATIONS? YES - PLEASE INDICATE : > 9 SURGERIES LATEX RISK : ARE YOU FREQUENTLY EXPOSED TO LATEX PRODUCTS IN YOUR OCCUPATION?NO LUNG CANCER SCREENING SMOKING STATUS:NON SMOKER ALCOHOL SCREENING DID YOU HAVE A DRINK CONTAINING ALCOHOL IN THE PAST YEAR?NO POINTS0 INTERPRETATIONNEGATIVE RECREATIONAL DRUG USE DRUG USE?NO CAFFEINE CAFFEINE USE?YES 4 CUPS OF COFFEE A DAY SEXUAL HX HAD SEX IN THE LAST 12 MONTHS (VAGINAL, ORAL, OR ANAL)?: NO, HAVE YOU EVER HAD AN STD?: NO. DRUZE [id number] GNOSTICIST LANGUAGE TURKS AND [place]ER. EDUCATION LEVEL OF EDUCATION:FINISHED COL[employer] DEGREE LEARNING BARRIERS / SPECIAL NEEDS BARRIERS TO LEARNING?NO HEARING IMPAIRED?NO VISION IMPAIRED?YES COGNITIVELY IMPAIRED?NO :CORRECTIVE LENSES READING GLASSES READINESS TO LEARN?YES LEARNING PREFERENCES?YES :DEMONSTRATION/VERBAL INSTRUCTION LEARNING CAPABILITIES PRESENT?YES EMOTIONAL BARRIERS?NO SPECIAL DEVICES?NO CONTINUOUS IMPROVEMENT FACILITATOR NEEDED?NO DOMESTIC VIOLENCE NONE. DIET: REGULAR. EXERCISE: WALKS. MARITAL STATUS: .. OTHERS AT HOME: BOYFRIEND. PAIN CLINIC PFS, CLERGY, PUBLIC HEALTH REFERRALS PFS REFERRAL NEEDED?NO CLERGY REFERRAL NEEDED?NO PUBLIC HEALTH REFERRAL NEEDED?NO WAS THE PROVIDER NOTIFIED OF ANY PERTINENT INFO?YES HAS THE PATIENT BEEN EDUCATED REGARDING HIS/HER PLAN OF CARE?YES HAS THE PATIENT BEEN EDUCATED REGARDING PAIN, THE RISK FOR PAIN, THE IMPORTANCE OF EFFECTIVE PAIN MANAGEMENT, AND THE PAIN ASSESSMENT PROCESS?YES ADVANCE DIRECTIVE ADVANCE DIRECTIVE DISCUSSED WITH PATIENT:YES PT. DECLINES INFORMATION, DECLINES ASSISTANCE AT THIS TIME HOSPITALIZATION/MAJOR DIAGNOSTIC PROCEDURE SURGERY RELATED "MICRO STROKE" 11/04/20 REVIEW OF SYSTEMS CONSTITUTIONAL: ANY RECENT FEVER NO . CHILLS NO . WEIGHT CHANGE OF UNKNOWN REASONS NO . GASTROENTEROLOGY: NEW UNEXPLAINABLE CHANGES IN BOWEL CONTROL NO . CONSTIPATION NO . GENITOURINARY: ANY NEW CHANGE IN BLADDER CONTROL? NO . NEUROLOGY: NEW ONSET DIZZINESS OR NEUROLOGICAL CHANGES NOT MENTIONED NO . NEW NUMBNESS OR PAIN PATTERNS NOT MENTIONED AND PERTINENT TO TODAY'S VISIT NO . CARDIOLOGY: NEW CHEST PRESSURE NO . STROKE STATES SHE WAS DIAGNOSED WITH A MICROVOLTS STROKE ON 11/04/2020 AT [facility] RO[facility]. FOLLOWS WITH DR. CEJA-CARDIOLOGY . NEW CHEST PAIN NO . RESPIRATORY: UNEXPLAINABLE COUGH NO . NEW SHORTNESS OF BREATH REPORTING SHORTNESS OF BREATH ESPECIALLY AT NIGHTTIME . VITAL SIGNS WT 230.4 LBS, HT 64 IN, BMI 39.54 INDEX, BP 123/77 MM HG, HR 75 /MIN, RR 18 /MIN, TEMP 96.0 F, OXYGEN SAT % 96%, SAFE IN ENV? (Y/N) YES, NA INITIALS AW 1522, REVIEWED BY: JIGNA PALOMARES PROBATION AGENT. EXAMINATION GENERAL EXAMINATION: GENERALALERT . PSYCHAFFECT NORMAL . LUNGS:LUNG SOUNDS ARE CLEAR . HEART:HEART RATE REGULAR . LUMBAR: SPECIFIC BILAT SIJ PAIN NOTED WITH PALPATION. POSITIVE NA'S TESTING OVER RIGHT LEG.. NEUROLOGIC EXAM:NORMAL SENSATION TO LIGHT TOUCH BILAT. LOWER EXTREMITIES . DIAGNOSTIC TESTS REVIEWEDMRI L/S SPINE-05/01/18. ASSESSMENTS SACROILIITIS - M46.1 (PRIMARY) TREATMENT SACROILIITIS NOTES: BILATERAL SACROILIAC JOINT BLOCK AFTER CARDIOLOGY CLEARANCE. PROCEDURE CODES FA211 ESTABILISHED PATIENT [facility] CHARGE DISPOSITION & COMMUNICATION FOLLOW UP 2 MONTHS (REASON: BILATERAL SACROILIAC JOINT BLOCK AFTER CARDIOLOGY CLEARANCE) ELECTRONICALLY SIGNED BY JANET OWENS ON 11/21/2020 AT 10:25 AM EST DISCLAIMER : THIS IS A VISIT SUMMARY EXTRACTED FROM THE [employer] CHART. IT IS NOT A COPY OF THE [employer] PROGRESS NOTE. AYUSH
== END ==
LOC: M PAIN 14:45
PROVIDERS: ATTEND Nurse Practitioner Family
DX: M46.1 Sacroiliitis, not elsewhere classified (principal); I10 Essential (primary) hypertension; D64.9 Anemia, unspecified; G25.81 Restless legs syndrome; F32.9 Major depressive disorder, single episode, unspecified; F41.9 Anxiety disorder, unspecified; G47.33 Obstructive sleep apnea (adult) (pediatric); Z86.73 Personal history of transient ischemic attack (TIA), and cerebral infarction without residual deficits; Z79.899 Other long term (current) drug therapy

== ENCOUNTER → 2020-12-08 | Outpatient (CLI) | payer MEDICARE, MEDICAID ==
[~2020-12-08] MED LIST changes: +GABA-282 PO; -GABA-843 PO
== END ==
LOC: M LABSMTC 09:48
PROVIDERS: ATTEND Anesthesiology
DX: Z20.822 Contact with and (suspected) exposure to COVID-19 (principal)

== ENCOUNTER → 2020-12-11 | Outpatient (CLI) | payer MEDICARE, MEDICAID ==
--- NOTE | 2020-12-11 16:27 | REP ---
INDICATION: EDEMA COMPARISON: None. TECHNIQUE: Real time compression and duplex Doppler interrogation of the bilateral lower extremity deep venous system is performed. FINDINGS: Bilaterally, the common femoral, superficial femoral and popliteal veins are fully compressible with transducer pressure and demonstrate normal spontaneous and phasic flow, without evidence of deep venous thrombosis. A Gama's cyst on the right measures 6.6 x 1.2 x 3.1 cm. A Gama's cyst on the left measures 5.8 x 1.2 x 3.8 cm. IMPRESSION: No evidence of deep venous thrombosis of the bilateral lower extremity femoral popliteal venous system. <Electronically signed by Jose Juan Robledo > 12/11/20 [id number]
== END ==
LOC: M RAD 15:36
PROVIDERS: ATTEND Internal Medicine Cardiovascular Disease
DX: R60.0 Localized edema (principal)

== ENCOUNTER → 2020-12-13 | Outpatient (CLI) | payer MEDICARE, MEDICAID ==
[~2020-12-13] MED LIST changes: +BUPIVACAINE HCL 0.25% 30ML VIAL As Ordered ONE; +ISOVUE-M 300 61% 15ML VIAL As Ordered ONE; +LIDOCAINE 1% SDV 30ML VIAL As Ordered ONE; +TRIAMCINOLONE ACETONIDE SUSP 40 MG/ML VIAL (J3301) As Ordered ONE; +diazePAM 5MG TABLET As Ordered ONE; +oxyCODONE 5MG TAB As Ordered ONE
--- NOTE | 2020-12-13 14:30 | REP ---
INDICATION: BILATERAL SIJ. COMPARISON: None. TECHNIQUE: Two views. 19.2 seconds of fluoroscopy time is reported. FINDINGS: A sequence of 2 last image hold fluoroscopically obtained spot radiographs of the SI joint bilaterally document needle position associated with injection procedure. IMPRESSION: Procedural imaging. <Electronically signed by Hipolito Manzano > 12/13/20 0973
--- NOTE | 2020-12-14 00:53 | ECWPNPC ---
PATIENT NAME: CHRISTAL HARRIS : 1960 GENDER: FEMALE VISIT DATE: 12/13/2020 DISCHARGE DATE: 12/13/20 1444 VISIT LOCKED DATE TIME: PHYSICIAN: JARAD SIMMS MD RESOURCE: JARAD SIMMS MD REASON FOR APPOINTMENT 1. BILATERAL SACROILIAC JOINT BLOCK HISTORY OF PRESENT ILLNESS GENERAL: -. FALL RISK SCREENING: SCREENING :NO FALLS REPORTED IN THE LAST YEAR PAIN SCREENING: PATIENT HAS A COMPLAINT OF ACUTE OR CHRONIC PAIN :YES LOCATION OF PAIN:LOW BACK, LEFT HIP, RIGHT HIP, LEG(S) INTENSITY OF PAIN (SCALE OF 1 TO 10):7 WHAT DOES YOUR PAIN FEEL LIKE:ACHING, BURNING, CONTINOUS, SHARP, SHOOTING DURATION:CONTINOUS PAIN IS INCREASED BY:ACTIVITIES, PROLONGED STANDING PAIN IS DECREASED BY:SITTING, OTHERS HOT BATH, HEAT BLANKET TREATMENT/MEDICATIONS USED TO MANAGE PAIN:OTC PAIN RELIEVERS ALSO GABAPENTIN LEVEL OF RELIEF FROM PAIN TREATMENTS IN THE PAST:50% PAIN HAS INTERFERED WITH THE FOLLOWING:BATHING/DRESSING, MOOD, WALKING ABILITY, EMPLOYMENT, HOUSEWORK, SLEEP, ENJOYMENT OF LIFE PLAN/GOALS/TREATMENT/INTERVENTION/FOLLOW UP:SEE PLAN NURSING NOTE: -. PAIN CENTER INTAKE QUESTIONS: DO YOU HAVE A HISTORY OF MRSA? :NO DO YOU TAKE A BLOOD THINNERS? :NO DO YOU HAVE ANY BLEEDING DISORDERS? :NO ANY NEW NUMBNESS OR WEAKNESS IN YOUR LEGS OR ARMS? :NO ANY PACEMAKER,DEFIBRILLATOR, OR DORSAL COLUMN STIMULATOR? :NO DO YOU HAVE ANY RASHES OR OPEN SORES? :NO ARE YOU ALLERGIC TO IV DYE? :NO ARE YOU DIABETIC? :NO ANY NEW PROBLEMS WITH YOUR MEDICATIONS? :NO HAVE YOU RECEIVED A VACCINE IN THE PAST 30 DAYS? :NO DO YOU PLAN TO RECEIVE A VACCINE IN THE NEXT 21 DAYS? :NO DO YOU TAKE ANY IMMUNOSUPPRESSIVE MEDICATIONS? :NO ANY HISTORY OF SEIZURES? :NO ANY HISTORY OF CARDIAC ISSUES OR EVENTS? :NO DO YOU HAVE SLEEP APNEA? :NO ANY RECENT HEAD INJURY? :NO DO YOU HAVE ANY NEW INFECTIONS? :NO IS THERE A CHANCE YOU COULD BE ? :NO ARE YOU BREAST FEEDING? :NO WHEN DID YOU LAST EAT? : 12/12/20 1900 WHEN DID YOU LAST DRINK? : 0100 WHAT DID YOU LAST DRINK? : WATER NAME OF PERSON DRIVING YOU HOME? : PAULIE DO YOU HAVE ANY OTHER QUESTIONS OR CONCERNS? : - CURRENT MEDICATIONS TAKING CRESTOR 10 MG TABLET 1 TABLET ORALLY ONCE A DAY TAKING BUSPIRONE HCL 10 MG TABLET 1 TABLET ORALLY BID TAKING VIIBRYD 40 MG TABLET 1 CAP ORALLY DAILY TAKING OMEPRAZOLE 40 MG CAPSULE DELAYED RELEASE 1 CAPSULE ORALLY BID TAKING CALCIUM + D3 600-200 MG-UNIT TABLET 1 TABLET WITH A MEAL ORALLY ONCE A DAY TAKING MULTIVITAMIN ADULTS - TABLET DIRECTED ORALLY TAKING LISINOPRIL 10 MG TABLET 1 TABLET ORALLY ONCE A DAY, NOTES: 12/12/2020 AM TAKING MAY HAVE - - IRON INFUSIONS INTRAVENOUSLY Q 6 MOS TAKING GABAPENTIN 300 MG TABLET 1 CAPSULE ORALLY FOR PAIN Q8H TID TAKING BABY ASPIRIN 1 TABLET DAILY , NOTES: 12/12/20 AM TAKING VOLTAREN 1 % GEL DIRECTED TRANSDERMAL NOT-TAKING VITAMIN B12 TR 2000 MCG TABLET EXTENDED RELEASE 1 TABLET ORALLY ONCE A DAY NOT-TAKING VITAMIN B1 100 MG TABLET 1 TABLET ORALLY ONCE A DAY NOT-TAKING IBUPROFEN 800 MG TABLET 1 TABLET WITH FOOD OR MILK NEEDED ORALLY BID PRN NOT-TAKING FUROSEMIDE 40 MG TABLET 1 TABLET ORALLY ONCE A DAY NOT-TAKING ROPINIROLE HCL 1 MG TABLET 1 1/2 TABS ORALLY BID NOT-TAKING METHYLPREDNISOLONE (DREW) 4MG USE DIRECTED X 6 DAYS NOT-TAKING PANTOPRAZOLE SODIUM 40 MG TABLET DELAYED RELEASE 1 TABLET ORALLY ONCE A DAY NOT-TAKING VITAMIN D (ERGOCALCIFEROL) 61830 UNIT CAPSULE 1 CAPSULE ORALLY NOT-TAKING GABAPENTIN 100 MG CAPSULE 1 CAPSULE ORALLY ONCE DAILY NEEDED MEDICATION LIST REVIEWED AND RECONCILED WITH THE PATIENT PAST MEDICAL HISTORY HTN ANEMIA OBESITY S/P GASTRIC BYPASS HISTORY OF FLUID RETENTION BLADDER MESH DEGENERATIVE DISC DISEASE RESTLESS LEG SYNDROME DEPRESSION ANXIETY LOW BACK AND LEFT HIP PAIN RADIATING DOWN LEFT LEG TO FOOT KING CYST BILATERAL LAURITA BILATERAL CARPAL TUNNEL BILATERAL LEG WEAKNESS AND PARESTHESIAS AROUND THE KNEE SWELLING IN FEET STROKE 11/04/20 ALLERGIES N.K.D.A. SURGICAL HISTORY GASTRIC BYPASS 04/27/2008 BREAST REDUCTION 07/05/15 ROTATOR CUFF LEFT 2014 BLADDER REPAIR 1991,05/2003 HEMMORIOD REMOVAL 2015 HYSTERECTOMY 02/1995 GALLBLADDER REMOVED 02/1995 TONSILS REMOVED 1981 JACKELIN REMOVED FROM LEFT SIDE OF FACE 1970 COLON RESECTION FOR COLON CA 2017 RIGHT ROTATOR CUFF REPAIR AND RIGHT BICEP REPAIR 09/2019 SOCIAL HISTORY GENERAL: TOBACCO USE ARE YOU A:NONSMOKER LATEX QUESTIONNAIRE LATEX ALLERGY : HAVE YOU EVER DEVELOPED ANY TYPE OF REACTION AFTER HANDLING LATEX PRODUCTS SUCH RUBBER GLOVES, CONDOMS, DIAPHRAGMS, BALLOONS, SOCKS, OR UNDERWEAR?NO LATEX ALLERGY : HAVE YOU EVER DEVELOPED ANY TYPE OF REACTION DURING OR AFTER DENTAL APPOINTMENT, VAGINAL/RECTAL EXAMINATION, SURGICAL PROCEDURE, OR ANY OTHER EXPOSURE?NO LATEX RISK : HAVE YOU EVER HAD ANY DIFFICULTY BREATHING OR HIVES AFTER EATING OR HANDLING ANY FRUITS, OR VEGETABLES; SUCH KIWI, BANANAS, STONE FRUITS, OR CHESTNUTSNO LATEX RISK : DO YOU HAVE A PREVIOUS PERSONAL HISTORY OF MORE THAN NINE SURGERIES, SPINA BIFIDA, OR REPEATED CATHERIZATIONS? YES - PLEASE INDICATE : > 9 SURGERIES LATEX RISK : ARE YOU FREQUENTLY EXPOSED TO LATEX PRODUCTS IN YOUR OCCUPATION?NO DATE ASKED : 12/13/2020 ALCOHOL USE: NO. LUNG CANCER SCREENING SMOKING STATUS:NON SMOKER ALCOHOL SCREENING DID YOU HAVE A DRINK CONTAINING ALCOHOL IN THE PAST YEAR?NO POINTS0 INTERPRETATIONNEGATIVE RECREATIONAL DRUG USE DRUG USE?NO CAFFEINE CAFFEINE USE?YES 4 CUPS OF COFFEE A DAY SEXUAL HX HAD SEX IN THE LAST 12 MONTHS (VAGINAL, ORAL, OR ANAL)?: NO, HAVE YOU EVER HAD AN STD?: NO. YAZIDI [id number] SIKHISM LANGUAGE SURINAMESE. EDUCATION LEVEL OF EDUCATION:FINISHED [employer] DEGREE LEARNING BARRIERS / SPECIAL NEEDS CHANGE FROM LAST VISIT?YES BARRIERS TO LEARNING?NO HEARING IMPAIRED?NO VISION IMPAIRED?NO COGNITIVELY IMPAIRED?NO READINESS TO LEARN?YES LEARNING PREFERENCES?YES :DEMONSTRATION/VERBAL INSTRUCTION LEARNING CAPABILITIES PRESENT?YES EMOTIONAL BARRIERS?NO SPECIAL DEVICES?NO STRATEGIC BUSINESS DEVELOPMENT NEEDED?NO DOMESTIC VIOLENCE NONE. DIET: REGULAR. EXERCISE: WALKS. MARITAL STATUS: .. OTHERS AT HOME: BOYFRIEND. HOSPITALIZATION/MAJOR DIAGNOSTIC PROCEDURE SURGERY RELATED "MICRO STROKE" 11/04/20 VITAL SIGNS WT 229.4 LBS, HT 64 IN, BMI 39.37 INDEX, BP 157/81 MM HG, HR 73 /MIN, RR 18 /MIN, TEMP 97.9 F, OXYGEN SAT % 96, SAFE IN ENV? (Y/N) YES, REVIEWED BY: APA. BARBARA RN. EXAMINATION GENERAL EXAMINATION: THE PATIENT IS ALERT, ORIENTED TIMES THREE AND COOPERATIVE. LUNGS ARE CLEAR TO AUSCULTATION. HEART SHOWS REGULAR RHYTHM, NO MURMURS AND NO GALLOPS. ASSESSMENTS SACROILIITIS - M46.1 (PRIMARY) TREATMENT SACROILIITIS LAB: MEDICATION: OXYCODONE HCL TAB 10MG ORALLY (ORDERED FOR 12/13/2020) JUDITH JIMENEZ 12/13/2020 1:16:14 PM > VERIFIED. YANNA YANES 12/13/2020 1:20:49 PM > ADMINISTERED. LAB: MEDICATION: VALIUM TAB 10MG ORALLY (DIAZEPAM) (ORDERED FOR 12/13/2020) JUDITH JIMENEZ R 12/13/2020 1:16:35 PM > VERIFIED. YANNA YANES 12/13/2020 1:21:14 PM > ADMINISTERED. [facility] FLUORO GUIDANCE (PAIN)[id number] COMPLETION OF PROCEDURAL VISIT WHEN MEETS CRITERIASYYANNA WATSON 12/13/2020 2:43:16 PM > CRITERIA MET. NOTES: PAT COMPLETED. PROCEDURES PAIN NURSING RECORD PROCEDURE IN ROOM 1359, PHYSICIAN IN ROOM 1415, START 1418, FINISH 1422, PHYSICIAN OUT OF ROOM 1423, OUT OF ROOM 1429, ECG OTHER SINUS AURELIO, PATIENT SHIELDED YES, SAFETY STRAP YES, PREP CHLOROPREP BY: Jigna JIMENEZ RN, DRESSING TEGADERM BY: DR. SIMMS LOC: YANNA YANES 12/13/2020 2:20:26 PM > , 1. ALERT, ORIENTED RESP: YANNA YANES 12/13/2020 2:20:29 PM > , 1. REGULAR, NO DYSPNEA COLOR: YANNA YANES 12/13/2020 2:20:33 PM > , 1. PINK SKIN: YANNA YANES 12/13/2020 2:20:36 PM > , 1. WARM, DRY POSITION: YANNA YANES 12/13/2020 2:20:40 PM > , 1. PRONE VITALS: YANNA YANES 12/13/2020 2:03:03 PM > 161/87, 52, 16, 94% YANNA YANES 12/13/2020 2:14:56 PM > 139/75, 51, 16, 91% YANNA YANES 12/13/2020 2:25:16 PM > 154/93, 54, 16, 95% YANNA YANES 12/13/2020 2:33:42 PM > 142/80, 66, 15, 97% COMPLETION OF PROCEDURE APPOINTMENT: POST PAIN 0, DRESSING SITE DRY AND INTACT, IV N/A, GAIT WHEELCHAIR PATIENT FEELING SLIGHTLY UNSTEADY ON FEET. WHEELCHAIR USED TO BRING PATIENT TO CAR POST-PROCEDURE., TEACHING COMPLETED, PATIENT ACKNOWLEDGES UNDERSTANDING YES, PROCEDURE APPOINTMENT COMPLETED AT 1443 BY: Odessa YANES RN PN SI PRE PROCEDURE DIAGNOSIS SACROILIITIS, SACROILIAC JOINT DYSFUNCTION POST PROCEDURE DIAGNOSIS SACROILIITIS, SACROILIAC JOINT DYSFUNCTION PROCEDURE BILATERAL SACROILIAC JOINT BLOCK SURGEON DR. JARAD SIMMS SEW ON OPERATOR NONE ANESTHESIA LOCAL PRE PROCEDURE NOTE THE PATIENT WITH HISTORY OF CHRONIC LOW BACK PAIN. I EVALUATED THE PATIENT AND REVIEWED THE CHART. I WENT OVER THE RISKS, ALTERNATIVES, AND BENEFITS ASSOCIATED WITH THIS PROCEDURE. THE PATIENT WOULD LIKE TO PROCEED AND GAVE CONSENT TO PERFORM THE PROCEDURE. THE PATIENT DENIES UNEXPLAINABLE WEIGHT LOSS, FEVER, CHILLS, OR NEW CHANGES IN URINARY OR BOWEL CONTROL. THE PATIENT IS COVID-19 NEGATIVE DESCRIPTION OF PROCEDURE THE PATIENT WAS BROUGHT TO THE PROCEDURE ROOM AND PLACED IN THE PRONE POSITION. THE LUMBOSACRAL AREA WAS CLEANED WITH CHLORAPREP SOLUTION AND DRAPED ASEPTICALLY. THE PROCEDURE WAS DONE UNDER STERILE CONDITIONS. A TIMEOUT WAS PERFORMED WHERE THE CONSENTED SITE WAS VERIFIED WITH EVERYONE IN THE ROOM. UNDER FLUOROSCOPIC GUIDANCE, THE TARGET POINT WAS SELECTED AT THE LOWER BORDER OF THE RIGHT AND LEFT SACROILIAC JOINT. TARGET POINT WAS SELECTED AFTER MEDIAL ROTATION AND TILT OF THE MAGNIFIER OR THE C-ARM. I CONFIRMED AGAIN THE SITE OF THE TARGET. LIDOCAINE 0.5% WAS USED TO NUMB THE SKIN AND THE SUBCUTANEOUS TISSUE BELOW IT. SPINAL NEEDLES, 22-GAUGE, WERE ADVANCED UNDER FLUOROSCOPIC GUIDANCE AND FOLLOWING PATIENT FEEDBACK UNTIL THE TARGETS WERE TOUCHED. THE POSITION OF THE NEEDLES WAS VERIFIED WITH AP AND OBLIQUE VIEWS. AFTER PROPER POSITION OF THE NEEDLES WAS ACHIEVED, ISOVUE-M DYE 30%, 0.1 ML, WAS INJECTED SHOWING ADEQUATE SPREAD OF THE DYE. KENALOG 20 MG WAS INJECTED AT EACH SITE. THEN, A SOLUTION OF 3.0 ML OF BUPIVACAINE 0.125% WAS USED TO FLUSH EACH NEEDLE. THE MEDICATIONS WERE VERIFIED WITH THE NURSE. THERE WAS NO EVIDENCE OF BLOOD, PARESTHESIA OR CEREBROSPINAL FLUID DURING THE PROCEDURE. THE PATIENT WAS SENT TO THE RECOVERY ROOM. THE PATIENT WAS MOVING THE EXTREMITIES AND DOING WELL. THERE WERE NO COMPLICATIONS DURING THE PROCEDURE. ESTIMATED BLOOD LOSS WAS LESS THAN 5 ML. FLUOROSCOPIC TIME WAS 19 SECONDS. POST PROCEDURE NOTE THE PROCEDURE DONE WAS DISCUSSED WITH THE PATIENT. THE PATIENT WILL BE SEEN IN A FOLLOW UP IN THE NEXT FEW WEEKS. I AM LOOKING FOR LONG LASTING PAIN RELIEF FOR THE PATIENT WITH THIS INTERVENTION. INSTRUCTIONS WERE GIVEN, QUESTIONS WERE ANSWERED, AND THE PATIENT EXPRESSED UNDERSTANDING AND AGREES WITH THE PLAN. I, SHARRI GARCIA, DOCUMENTED THE ABOVE INFORMATION ACTING A SCRIBE FOR DR. SIMMS. I HAVE REVIEWED THE ABOVE DOCUMENT, WRITTEN BY SHARRI GARCIA, MANAGER SHIPPING, AND I VERIFY THAT IT IS ACCURATE PROCEDURE CODES 91556 INJECT SACROILIAC JOINT, MODIFIERS: 50 DISPOSITION & COMMUNICATION FOLLOW UP FOLLOW UP WITH KILN PACKER (REASON: POST BILATERAL SACROILIAC JOINT BLOCK) ELECTRONICALLY SIGNED BY JARAD SIMMS MD, MD ON 12/13/2020 AT 04:38 PM EST DISCLAIMER : THIS IS A VISIT SUMMARY EXTRACTED FROM THE [employer] CHART. IT IS NOT A COPY OF THE [employer] PROGRESS NOTE. AYUSH
== END ==
LOC: M PAIN 13:00
PROVIDERS: ATTEND Anesthesiology
DX: M46.1 Sacroiliitis, not elsewhere classified (principal); G25.81 Restless legs syndrome; G47.33 Obstructive sleep apnea (adult) (pediatric); Z86.59 Personal history of other mental and behavioral disorders; Z98.84 Bariatric surgery status; Z86.73 Personal history of transient ischemic attack (TIA), and cerebral infarction without residual deficits; Z79.82 Long term (current) use of aspirin; Z79.899 Other long term (current) drug therapy
CPT/HCPCS: G0260; J3301; Q9967

== ENCOUNTER → 2020-12-15 | Outpatient (CLI) | payer MEDICARE, MEDICAID ==
[~2020-12-15] MED LIST changes: -BUPIVACAINE HCL 0.25% 30ML VIAL As Ordered ONE; +CALTCHW5 PO; -ISOVUE-M 300 61% 15ML VIAL As Ordered ONE; -LIDOCAINE 1% SDV 30ML VIAL As Ordered ONE; +LISI10TA22 PO; -LISI10TA4 PO; -TRIAMCINOLONE ACETONIDE SUSP 40 MG/ML VIAL (J3301) As Ordered ONE; -diazePAM 5MG TABLET As Ordered ONE; -oxyCODONE 5MG TAB As Ordered ONE
== END ==
LOC: M LABSMTC 10:22
PROVIDERS: ATTEND Anesthesiology
DX: Z01.812 Encounter for preprocedural laboratory examination (principal); Z20.822 Contact with and (suspected) exposure to COVID-19; F33.1 Major depressive disorder, recurrent, moderate; F41.8 Other specified anxiety disorders
CPT/HCPCS: 90834; U0003

== ENCOUNTER 2020-12-20 10:06 | Day surgery (SDC) | payer MEDICARE, MEDICAID ==
[~2020-12-20] VITALS: Ht 162.6 cm; Wt 101.2 kg
[~2020-12-20 10:06] MED LIST changes: -CALTCHW5 PO; +LIDOCAINE 2% 100MG/5ML SDV (FOR ANES.) As Ordered ONE; +NS 1,000 ML IV ONE; +propofoL 200 MG/20 ML VIAL As Ordered ONE
--- OUTSIDE RECORDS SUMMARY | 2020-12-20 10:13 | CCD | Continuity of Care Document ---
Author Author Susy HANCOCK Organization Unknown Address [address] [address] Phone [phone] Care Team Providers Care Obstetrics Nurse Name Role Phone [facility] [phone] Problems Active Problems Provider Date Low back pain Betty Persaud M.D. Onset: 05/28/2018 Pain in lower limb Betty Persaud M.D. Onset: 05/28/2018 Restless legs Betty Persaud M.D. Onset: 05/28/2018 Obstructive sleep apnea syndrome Betty Persaud M.D. Onset: 05/28/2018 Social History Type Date Description Comments Sex Unknown Tobacco Use Start: Unknown Patient has never smoked Allergies, Adverse Reactions, Alerts Description No Known Drug Allergies Medications Active Medications SIG Qnty Indications Ordering Provide r Date Requip 1mg Tablets take one tablet by mouth three times a day 90tabs Betty Persaud M.D. 11/14 Ibuprofen 800mg Tablets take one tablet by mouth every 12 hours as needed 60tabs Nisreen Weiner 03/21/2017 Immunizations Description No Information Available Vital Signs Date Vital Result Comment 05/28/2018 11:22am Respiratory Rate 14 /min Height 62 inches 5'2" Weight 225.00 lb BMI (Body Mass Index) 41.1 kg/m2 [place] Body Weight 110 lb Results Description No Information Available Procedures Date Code Description Status 12/12/2020 60998 Magnetic Resonance Angiography N andrés W/O Contrast Materials Completed 12/12/2020 08667 Magnetic Resonance Angiogtaphy H ead W/O Contrast Material(S) Completed 08/14/2020 44322 Nerve Conduction 11-12 Studies C ompleted 08/14/2020 20638 Needle Electromyography Complete , Five Or More Muscles Studied Completed 08/14/2020 97095 Needle Electromyography Complete , Five Or More Muscles Studied Completed 08/07/2020 08586 Nerve Conduction 7-8 Studies Com pleted 08/07/2020 90188 Needle Electromyography Complete , Five Or More Muscles Studied Completed 08/07/2020 74367 Needle Electromyography Complete , Five Or More Muscles Studied Completed Medical Devices Description No Information Available Encounters Type Date Location Provider Dx Diagnosis Office Visit 11/27/2020 3:15p Main office - [place] Pers[place] M.D. G47.51 Confusional arousals I67.89 Other cerebrovascular diseas e G47.00 Insomnia, unspecified G60.9 Hereditary and idiopathic ne uropathy, unspecified G25.89 Other specified extrapyramid al and movement disorders G47.30 Sleep apnea, unspecified M62.9 Disorder of muscle, unspecif ied R47.01 Aphasia Office Visit 10/03/2020 3:30p Main office - [place] Persaud M.D. 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 M47.892 Other spondylosis, cervical region M51.36 Other intervertebral disc de generation, lumbar region M54.5 Low back pain S09.8xxA Other specified injuries of head, initial encounter M54.2 Cervicalgia R20.2 Paresthesia of skin G47.30 Sleep apnea, unspecified M62.9 Disorder of muscle, unspecif ied Assessments Date Code Description Provider 12/12/2020 G47.31 Primary central sleep apnea MRI 12/12/2020 I67.89 Other cerebrovascular disease MR I 11/27/2020 G47.51 Confusional arousals Betty pappas M.D. 11/27/2020 I67.89 Other cerebrovascular disease Arlin Persaud M.D. 11/27/2020 G47.00 Insomnia, unspecified Betty tim M.D. 11/27/2020 G60.9 Hereditary and idiopathic neurop athy, unspecified Betty Persaud, M.D. 11/27/2020 G25.89 Other specified extrapyramidal a nd movement disorders Betty Hung, M.D. 11/27/2020 G47.30 Sleep apnea, unspecified Betty Hung, M.D. 11/27/2020 M62.9 Disorder of muscle, unspecified Betty Hung, M.D. 11/27/2020 R47.01 Aphasia Betty Hung, M. D. 10/03/2020 M51.36 Other intervertebral disc degene ration, lumbar region Betty Hung, M.D. 10/03/2020 G60.9 Hereditary and idiopathic neurop athy, unspecified Betty Hung, M.D. 10/03/2020 G25.81 Restless legs syndrome Betty La tif, M.D. 10/03/2020 G47.30 Sleep apnea, unspecified Betty Hung, M.D. 08/14/2020 M54.89 Other dorsalgia Mike Hendricks, Zoe.D. 08/14/2020 R20.2 Paresthesia of skin Mike Hendricks, M.D. 08/07/2020 M79.601 Pain in right arm Mike Hendricks, M. D. 08/07/2020 R20.2 Paresthesia of skin Mike Hendricks, M.D. 08/03/2020 M47.892 Other spondylosis, cervical joseline on Betty Hung, M.D. 08/03/2020 M51.36 Other intervertebral disc degene ration, lumbar region Betty Hung, M.D. 08/03/2020 M54.5 Low back pain Betty Hung, M. D. 08/03/2020 S09.8xxA Other specified injuries of head , initial encounter Betty Hung, M.D. 08/03/2020 M54.2 Cervicalgia Betty Hung, M. D. 08/03/2020 R20.2 Paresthesia of skin Betty Hung , M.D. 08/03/2020 G47.30 Sleep apnea, unspecified Betty Hung, M.D. 08/03/2020 M62.9 Disorder of muscle, unspecified Betty Hung, M.D. Plan of Treatment Future Appointment(s):* 12/15/2020 11:45 am - Ans/VS at [facility] * 12/28/2020 9:15 am - Betty Persaud M.D. at [facility] * 01/29/2021 3:30 pm - Betty Persaud M.D. at [facility] Functional Status Description No Information Available Mental Status Description No Information Available Referrals Refer to Dr Reason for Referral Status Appt Date Created
--- OUTSIDE RECORDS SUMMARY | 2020-12-20 10:13 | CCD | Continuity of Care Document ---
Author Author Ignacio/Susy KAYE Organization Unknown Address [address] [place] [address] Phone [phone] Care Team Providers Care Pastry Mixer Name Role Phone [facility] [phone] Problems Active Problems Provider Date Low back [...] lb BMI (Body Mass Index) 41.1 kg/m2 [place] Body Weight 110 lb Results Description No Information Available Procedures Date Code Description Status 12/12/2020 84561 Magnetic Resonance Angiography N andrés W/O Contrast Materials Completed 12/12/2020 40994 Magnetic Resonance Angiogtaphy H ead W/O Contrast Material(S) Completed 08/14/2020 19194 Nerve Conduction 11-12 Studies C ompleted 08/14/2020 57723 Needle Electromyography Complete , Five Or More Muscles Studied Completed 08/14/2020 46575 Needle Electromyography Complete , Five Or More Muscles Studied Completed 08/07/2020 13972 Nerve Conduction 7-8 Studies Com pleted 08/07/2020 31683 Needle Electromyography Complete , Five Or More Muscles Studied Completed 08/07/2020 80825 Needle Electromyography Complete , Five Or More Muscles Studied Completed Medical Devices Description No Information Available Encounters Type Date Location Provider Dx Diagnosis Office Visit 11/27/2020 3:15p [place] M.[place]. G47.51 Confusional arousals I67.89 Other cerebrovascular diseas e G47.00 Insomnia, unspecified G60.9 Hereditary and idiopathic ne uropathy, unspecified G25.89 Other specified extrapyramid al and movement disorders G47.30 Sleep apnea, unspecified M62.9 Disorder of muscle, unspecif ied R47.01 Aphasia Office Visit 10/03/2020 3:30p [place] office - [place] M.D. 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 M47.892 Other spondylosis, cervical [...] idiopathic neurop athy, unspecified Betty Hung, M.D. 11/27/2020 G25.89 Other specified extrapyramidal a [...] M.D. 08/14/2020 M54.89 Other dorsalgia Mike Hendricks, M.D. 08/14/2020 R20.2 Paresthesia of skin Mike Hendricks, M.D. 08/07/2020 M79.601 Pain in right arm Mike Hendricks M. D. 08/07/2020 R20.2 Paresthesia of skin [...] Hung, M.D. Plan of Treatment Future Appointment(s):* 12/28/2020 9:15 am - Betty Persaud M.D. at [facility] * 01/29/2021 3:30 pm - Betty Persaud M.D. at [facility] Functional Status Description No Information Available Mental Status Description No Information Available Referrals Refer to Reason for Referral Status Appt Date Created
--- OUTSIDE RECORDS SUMMARY | 2020-12-20 10:13 | CCD | Continuity of Care Document ---
Author Author Susy HANCOCK Organization Unknown Address [address] [address] Phone [phone] Care Team Providers Care Plant Health Care Technician Name Role Phone [facility]in Lemus [facility] [phone] Problems Active Problems Provider Date Low back [...] lb BMI (Body Mass Index) 41.1 kg/m2 [place] Body Weight 110 lb Results Description No Information Available Procedures Date Code Description Status 12/15/2020 79060 Sympathetic Skin Responses Compl eted 12/15/2020 06965 Test Autonomic Nervous System, C ardiovagal Innervation Completed 12/15/2020 07819 Artery Study Extremity Mult Leve ls Bilateral Completed 12/12/2020 35673 Magnetic Resonance Angiography N andrés W/O Contrast Materials Completed 12/12/2020 18623 Magnetic Resonance Angiography N andrés W/O Contrast Materials Completed 12/12/2020 79318 Magnetic Resonance Angiogtaphy H ead W/O Contrast Material(S) Completed 12/12/2020 89886 Magnetic Resonance Angiogtaphy H ead W/O Contrast Material(S) Completed 08/14/2020 23232 Nerve Conduction 11-12 Studies C ompleted 08/14/2020 09102 Needle Electromyography Complete , Five Or More Muscles Studied Completed 08/14/2020 02938 Needle Electromyography Complete , Five Or More Muscles Studied Completed 08/07/2020 42322 Nerve Conduction 7-8 Studies Com pleted 08/07/2020 06378 Needle Electromyography Complete , Five Or More Muscles Studied Completed 08/07/2020 05734 Needle Electromyography Complete , Five Or More Muscles Studied Completed Medical Devices Description No Information Available Encounters Type Date Location Provider Dx Diagnosis Office Visit 11/27/2020 3:15p [place] M.[place]. G47.51 Confusional arousals I67.89 Other cerebrovascular diseas e G47.00 Insomnia, unspecified G60.9 Hereditary and idiopathic ne uropathy, unspecified G25.89 Other specified extrapyramid al and movement disorders G47.30 Sleep apnea, unspecified M62.9 Disorder of muscle, unspecif ied R47.01 Aphasia Office Visit 10/03/2020 3:30p Main office - [place] M.D. 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 M47.892 Other spondylosis, cervical region M51.36 Other intervertebral disc de generation, lumbar region M54.5 Low back pain S09.8xxA Other specified injuries of head, initial encounter M54.2 Cervicalgia R20.2 Paresthesia of skin G47.30 Sleep apnea, unspecified M62.9 Disorder of muscle, unspecif ied Assessments Date Code Description Provider 12/15/2020 G60.8 Other hereditary and idiopathic neuropathies Ans/VS 12/15/2020 I70.223 Atherosclerosis of n ative arteries of extremities with rest pain, bilateral legs Ans/VS 12/15/2020 G45.8 Other transient cere bral ischemic attacks and related syndromes Ans/VS 12/12/2020 G47.31 Primary central sleep apnea Abdu claire Persaud M.D. 12/12/2020 G47.31 Primary central sleep apnea MRI 12/12/2020 I67.89 Other cerebrovascular disease Ab rubin Persaud M.D. 12/12/2020 I67.89 Other cerebrovascular disease MR I 11/27/2020 G47.51 Confusional arousals Betty pappas M.D. 11/27/2020 I67.89 Other cerebrovascular disease Oliveros ndus Hung M.D. 11/27/2020 G47.00 Insomnia, unspecified Betty Gladys EllerDAbena 11/27/2020 G60.9 Hereditary and idiopathic neurop athy, unspecified Betty Gladys PersaudDAbena 11/27/2020 G25.89 Other specified extrapyramidal a nd movement disorders BettyZoe Archibald.DAbena 11/27/2020 G47.30 Sleep apnea, unspecified Betty HungGladys timDAbena 11/27/2020 M62.9 Disorder of muscle, unspecified Betty Hung, M.DAbena 11/27/2020 R47.01 Aphasia Betty Persaud, M. DAbena 10/03/2020 M51.36 Other intervertebral disc degene ration, lumbar region BettyGladys ArchibaldDAbena 10/03/2020 G60.9 Hereditary and idiopathic neurop athy, unspecified Betty Hung, M.DAbena 10/03/2020 G25.81 Restless legs syndrome Betty Koroma M.D. 10/03/2020 G47.30 Sleep apnea, unspecified Betty Gladys PersaudDAbena 08/14/2020 M54.89 Other dorsalgia Mike Hendricks M.D. 08/14/2020 R20.2 Paresthesia of skin Mike Hendricks M.D. 08/07/2020 M79.601 Pain in right arm Gladys Lackey 08/07/2020 R20.2 Paresthesia of skin Mike Hendricks M.D. 08/03/2020 M47.892 Other spondylosis, cervical joseline on Betty Hung, M.DAbena 08/03/2020 M51.36 Other intervertebral disc degene ration, lumbar region Betty Hung, M.D. 08/03/2020 M54.5 Low back pain Betty Hung, M. D. 08/03/2020 S09.8xxA Other specified injuries of head , initial encounter Betty Hung, M.DAbena 08/03/2020 M54.2 Cervicalgia Betty Hung, M. DAbena 08/03/2020 R20.2 Paresthesia of skin Betty Hung , M.DAbena 08/03/2020 G47.30 Sleep apnea, unspecified Betty Hung, M.DAbena 08/03/2020 M62.9 Disorder of muscle, unspecified Betty Persaud M.D. Plan of Treatment Future Appointment(s):* 12/28/2020 9:15 am - Betty Persaud M.D. at [facility] * 01/29/2021 3:30 pm - Betty Persaud M.D. at [facility] Functional Status Description No Information Available Mental Status Description No Information Available Referrals Refer to Reason for Referral Status Appt Date Created
--- OUTSIDE RECORDS SUMMARY | 2020-12-20 10:13 | CCD ---
Author Author [facility] Organization [facility] Address Unknown Phone Unavailable Care Team Providers Care Community Relations Director Name Role Phone Moises Stallings Unavailable PROBLEMS Type Condition ICD9-CM Code [id number] Code Onset Dates Condition S tatus W/U Status Risk SNOMED Code Notes Problem Lower urinary tract symptoms R39.9 Active confirme d 431826641 Problem Low back pain M54.5 Active confirmed 066471 009 Problem Spondylosis of lumbosacral region without myelop athy or radiculopathy M47.817 Active confirmed 95466709 Problem Sacroiliitis M46.1 Active confirmed 8580246 9 Problem Other chronic pain G89.29 Active confirmed 8 3263528 Problem Intervertebral disc disorder with radiculopathy of lumbar region M51.16 Active confirmed 75829097 Problem Intervertebral disc disorder with radiculopathy of lumbosacral region M51.17 Active confirmed 45684826 Problem Spondylosis of lumbar region without myelopathy or radiculopathy M47.816 Active confirmed 77576234 ALLERGIES No Known Allergies ENCOUNTERS from 1960 to 2020-12-15 Encounter Location Date Provider Diagnosis [facility] [address] [place] [address] Dec, Moises Stallings Sacroiliitis M46.1 IMMUNIZATIONS Vaccine Route Administration Date Status Influenza (6mo & up) Fluzone Unknown January 24, 2016 Ref used SOCIAL HISTORY Tobacco Use: Social History Observation Description Date Details (start date - stop date) Never Smoker Sex Assigned At : Social History Observation Description Sex Assigned At Unknown Education: Question Answer Notes Level of Education: Finished College Associates Degree Mandaen: Question Answer Notes Mandaen 21 [employer] Alcohol Screening: Question Answer Notes Did you have a drink containing alcohol in the past year? No Points 0 Interpretation Negative Tobacco Use: Question Answer Notes Are you a: never smoker REASON FOR REFERRAL No Information VITAL SIGNS Weight 229.4 lbs Dec, Height 64 in Dec, BMI 39.37 kg/m2 Dec, Heart Rate 73 /min Dec, Respiratory Rate 18 /min Dec, Temperature 97.9 degrees Fahrenheit Dec, Oximetry 96 Dec, Blood pressure systolic 157 mm Hg Dec, Blood pressure diastolic 81 mm Hg Dec, MEDICATIONS Medication SIG (Take, Route, Frequency, Duration) Notes Start Da te End Date Status Baby Aspirin 1 tablet daily Active Voltaren 1 % as directed Transdermal Active Vitamin B12 TR 2000 MCG 1 tablet Orally Once a day for 30 day(s) Not-Taking Viibryd 40 MG 1 cap Orally Daily Act soren Vitamin B1 100 MG 1 tablet Orally Once a day for 30 day(s) Not-Taking Gabapentin 300 MG 1 capsule Orally for pain q8h TID for 30 Days March, Active BusPIRone HCl 10 MG 1 tablet Orally bid Active Multivitamin Adults - as directed Orally Active MethylPREDNISolone (Mesfin) 4MG USE DIRECTED X 6 DAYS Not-Taking Pantoprazole Sodium 40 MG 1 tablet Orally Once a day Not-Taking Omeprazole 40 MG 1 capsule Orally bid Active Calcium + D3 600-200 MG-UNIT 1 tablet with a meal Oral ly Once a day for 30 day(s) Active Gabapentin 100 MG 1 capsule Orally once daily as needed Jun, Not-Taking Ibuprofen 800 MG 1 tablet with food or milk as needed Orally bid prn Not-Taking Vitamin D (Ergocalciferol) 83728 UNIT 1 capsule Orally Not-Taking Furosemide 40 MG 1 tablet Orally Once a day Not-Taking Crestor 10 MG 1 tablet Orally Once a day Active Lisinopril 10 MG 1 tablet Orally Once a day for 30 day(s) Active May Have - Iron infusions intravenously Q 6 mos Active Ropinirole HCl 1 mg 1 1/2 tabs Orally bid Not-Taking PROCEDURES from 1960 to 2020-12-15 Procedure Date Ordered Result Body Site Completion of procedural visit when meets criteria 2020-12-13 N/A RESULTS No Results REASON FOR VISIT Bilateral sacroiliac joint block MEDICAL (GENERAL) HISTORY Type Description Date Medical History HTN Medical History Anemia Medical History Obesity s/p Gastric Bypass Medical History History of fluid retention Medical History bladder mesh Medical History Degenerative Disc Disease Medical History Restless Leg Syndrome Medical History Depression Medical History Anxiety Medical History Low Back and left hip pain radiating do wn left leg to foot Medical History Gama Cyst Bilateral Medical History LAURITA Medical History Bilateral Carpal Tunnel Medical History Bilateral Leg weakness and paresthesias around the knee Medical History SWELLING IN FEET Medical History Stroke 11/04/20 Surgical History Gastric Bypass 04/27/2008 Surgical History Breast reduction 07/05/15 Surgical History Rotator cuff left 2014 Surgical History Bladder repair 1991,05/2003 Surgical History Hemmoriod removal 2014 Surgical History Hysterectomy 02/1995 Surgical History Gallbladder removed 02/1995 Surgical History Tonsils removed 1981 Surgical History krishan removed from left side of fac e 1971 Surgical History Colon Resection for Colon CA 2017 Surgical History right rotator cuff repair and right wenceslao p repair 09/2019 Hospitalization History surgery related Hospitalization History "Micro Stroke" 11/04/20 Goals Section No Information Health Concerns No Information MEDICAL EQUIPMENT No Information MENTAL STATUS No Information FUNCTIONAL STATUS No Information ASSESSMENTS Encounter Date Diagnosis Assessment Notes Treatment Notes Treatm ent Clinical Notes Dec, Sacroiliitis (ICD-10 - M46.1) PAT COMPLETED PLAN OF TREATMENT Treatment Notes Assessment Notes Clinical Notes Sacroiliitis PAT COMPLETED Treatment Notes Test Name Order Date [facility] FLUORO GUIDANCE (PAIN) 2020-12-13 Future Test Test Name Order Date Medication: Oxycodone HCL Tab 10mg Orally 20201213 Medication: Valium Tab 10mg Orally (Diazepam) 20201213 Next Appt Details Follow up with BAND SCROLL SAW OPERATOR Reason:Post bilateral sacroiliac joint block Provider Name:Gracie Akhtar, 2021-01-08 09 :15:00 AM, [address] [place], [address], Follow Up:Follow up with [facility] bilateral sacroiliac joint block Insurance Providers Payer Name Payer Address Payer Phone Insured Name Patient Relati onship to Insured Coverage Start Date Coverage End Date MEDICAID [employer] [address] [facility] [id number] [place] MEDICARE Part A and B [address] [facility] [address] [phone] [place]
--- OUTSIDE RECORDS SUMMARY | 2020-12-20 10:13 | CCD ---
Author Author [facility] Organization [facility] Address Unknown Phone Unavailable Care Team Providers Care Mill Attendant Name Role Phone Haylie Moises Unavailable PROBLEMS Type Condition ICD9-CM Code RRR01-GV Code Onset Dates Condition S tatus W/U Status Risk SNOMED Code Notes Problem Lower urinary tract symptoms R39.9 Active confirme d 469266895 Problem Low back pain M54.5 Active confirmed 244640 009 Problem Spondylosis of lumbosacral region without myelop athy or radiculopathy M47.817 Active confirmed 84416477 Problem Sacroiliitis M46.1 Active confirmed 2120796 9 Problem Other chronic pain G89.29 Active confirmed 8 2155564 Problem Intervertebral disc disorder with radiculopathy of lumbar region M51.16 Active confirmed 23883417 Problem Intervertebral disc disorder with radiculopathy of lumbosacral region M51.17 Active confirmed 05209216 Problem Spondylosis of lumbar region without myelopathy or radiculopathy M47.816 Active confirmed 49015004 ALLERGIES No Known Allergies ENCOUNTERS from 1960 to 2020-12-14 Encounter Location Date Provider Diagnosis [facility] [address] [place] [address] Dec, Moises Stallings IMMUNIZATIONS Vaccine Route Administration Date Status Influenza (6mo & up) Fluzone Unknown January 24, 2016 Ref used SOCIAL HISTORY Tobacco Use: Social History Observation Description Date Details (start date - stop date) Never Smoker Sex Assigned At : Social History Observation Description Sex Assigned At Unknown Education: Question Answer Notes Level of Education: Finished College Associates Degree Latter-Day: Question Answer Notes Latter-Day 21 [employer] Alcohol Screening: Question Answer Notes Did you have a drink containing alcohol in the past year? No Points 0 Interpretation Negative Tobacco Use: Question Answer Notes Are you a: never smoker REASON FOR REFERRAL No Information VITAL SIGNS No information MEDICATIONS Medication SIG (Take, Route, Frequency, Duration) [...] Orally bid prn Not-Taking Vitamin D (Ergocalciferol) 40948 UNIT 1 capsule Orally Not-Taking Furosemide 40 MG 1 tablet Orally Once a day Not-Taking Crestor 10 MG 1 tablet Orally Once a day Active Lisinopril 10 MG 1 tablet Orally Once a day for 30 day(s) Active May Have - Iron infusions intravenously Q 6 mos Active Ropinirole HCl 1 mg 1 1/2 tabs Orally bid Not-Taking PROCEDURES No Information RESULTS No Results REASON FOR VISIT PAT MEDICAL (GENERAL) HISTORY Type Description Date Medical [...] Surgical History Colon Resection for Colon CA 2016 Surgical History right rotator cuff repair and right wenceslao p repair 09/2019 Hospitalization History surgery related Hospitalization History "Micro Stroke" 11/04/20 Goals Section No Information Health Concerns No Information MEDICAL EQUIPMENT No Information MENTAL STATUS No Information FUNCTIONAL STATUS No Information ASSESSMENTS No Information PLAN OF TREATMENT Next Appt Details Provider Name:Gracie Akhtar, 2021-01-08 09 :15:00 AM, [address] [place], [address], Insurance Providers Payer Name Payer Address Payer Phone Insured Name Patient Relati onship to Insured Coverage Start Date Coverage End Date MEDICAID [employer] [address] [facility] [id number] [place] MEDICARE Part A and B [address] [facility] [id number] [place]
--- OUTSIDE RECORDS SUMMARY | 2020-12-20 10:14 | CCD ---
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.817 Active 02740046 Problem Sacroiliitis M46.1 Active 41195302 Problem Other chronic pain G89.29 Active 29336810 Problem Intervertebral disc disorder with radiculopathy of lumbar region M51.16 Active 95808786 Problem Intervertebral disc disorder with radiculopathy of lumbosacral region M51.17 Active 16072274 Problem Spondylosis of lumbar region without myelopathy or radiculopathy M47.816 Active 85274720 ALLERGIES No Known Allergies ENCOUNTERS from 1960 to 2020-11-21 Encounter Location Date Provider Diagnosis [facility] [address] [place] [address] 08 Nov, 2020 Gracie Akhtar Sacroiliitis M46.1 IMMUNIZATIONS Vaccine Route Administration Date Status Influenza (6mo & up) Fluzone Unknown January 24, 2016 Ref used SOCIAL HISTORY Tobacco Use: Social History Observation Description Date Details (start date - stop date) Never Smoker Sex Assigned At : Social History Observation Description Sex Assigned At Unknown Education: Question Answer Notes Level of Education: Finished College Associates Degree [employer]: Question Answer Notes [employer] Alcohol Screening: Question Answer Notes Did you have a drink containing alcohol in the past year? No Points 0 Interpretation Negative Tobacco Use: Question Answer Notes Are you a: never smoker REASON FOR REFERRAL No Information VITAL SIGNS Weight 230.4 lbs Nov, Height 64 in Nov, BMI 39.54 kg/m2 Nov, Heart Rate 75 /min Nov, Respiratory Rate 18 /min Nov, Temperature 96.0 degrees Fahrenheit Nov, Oximetry 96% Nov, Blood pressure systolic 123 mm Hg Nov, Blood pressure diastolic 77 mm Hg Nov, MEDICATIONS Medication SIG (Take, Route, Frequency, Duration) Notes Start Da te End Date Status Pantoprazole Sodium 40 MG 1 tablet Orally Once a day Not-Taking Vitamin B1 100 MG 1 tablet Orally Once a day for 30 day(s) Active MethylPREDNISolone (Mesfin) 4MG USE DIRECTED X 6 DAYS Not-Taking Lisinopril 10 MG 1 tablet Orally Once a day for 30 day(s) Active Vitamin B12 TR 2000 MCG 1 tablet Orally Once a day for 30 day(s) Active Omeprazole 40 MG 1 capsule Orally bid Active Calcium + D3 600-200 MG-UNIT 1 tablet with a meal Oral ly Once a day for 30 day(s) Active Crestor 10 MG 1 tablet Orally Once a day Active Voltaren 1 % as directed Transdermal Not-Taking Ibuprofen 800 MG 1 tablet with food or milk as needed Orally bid prn Not-Taking Gabapentin 100 MG 1 capsule Orally once daily as needed Jun, Not-Taking Multivitamin Adults - as directed Orally Active Ropinirole HCl 1 mg 1 1/2 tabs Orally bid Not-Taking May Have - Iron infusions intravenously Q 6 mos Active Furosemide 40 MG 1 tablet Orally Once a day Not-Taking Gabapentin 300 MG 1 capsule Orally for pain q8h TID for 30 Days March, Active BusPIRone HCl 10 MG 1 tablet Orally bid Active Viibryd 40 MG 1 cap Orally Daily Act soren Vitamin D (Ergocalciferol) 29680 UNIT 1 capsule Orally Not-Taking PROCEDURES No Information RESULTS No Results REASON FOR VISIT Increased pain/wants procedure MEDICAL (GENERAL) HISTORY Type Description Date Medical [...] Medical History SWELLING IN FEET Medical History stroke Surgical History Gastric Bypass 04/27/2008 Surgical History [...] Notes Treatment Notes Treatm ent Clinical Notes Nov, Sacroiliitis (ICD-10 - M46.1) 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 PLAN OF TREATMENT Treatment Notes Assessment Notes Clinical Notes Sacroiliitis Bilateral sacroiliac joint block after c ardiology clearance Next Appt Details 2 Months Reason:Bilateral sacroiliac cristi nt block after cardiology clearance Provider Name:Gracie Akhtar, 2021-01-08 09 :15:00 AM, [address] [place], [address], Follow Up:2 Months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 Insurance Providers Payer Name Payer Address Payer Phone Insured Name Patient Relati onship to Insured Coverage Start Date Coverage End Date MEDICAID Bulb [address] [facility] [id number] [place] MEDICARE Part A and B [address] [facility] [address] [employer] [place]
--- OUTSIDE RECORDS SUMMARY | 2020-12-20 10:14 | CCD | Continuity of Care Document ---
Author Organization Unknown Address Unknown Phone Unavailable Care Team Providers Care Grease Refiner Operator Name Role Phone GaudencioAspen carbajalnida GONZALES AUTM [phone] Gisela Franks MD AUTM [phone] Betty ePrsaud MD AUTM [phone] Problems Active Problems Provider Date Edema Kael Pineda MD Onset: 12/05/2020 Palpitations Kael Pineda MD Onset: 12/05/2020 Mixed hyperlipidemia Kael Pineda MD Onset: 12/05/2020 Dietary management surveillance Kael Pineda MD Onset: 12/05/2020 Morbid obesity Kael Pineda MD Onset: 12/05/2020 Pure hypercholesterolemia Kael Pineda MD Onset: 2020 Essential hypertension Kael Pineda MD Onset: Cerebral artery occlusion Kael Pineda MD Onset: 2020 Ostium secundum type atrial septal defect Kael Pineda MD Onset: 12/05/2020 Social History Type Date Description Comments Sex Unknown ETOH Use Does not consume alcohol Tobacco Use Start: Unknown Patient has never smoked Smoking Status Reviewed: 12/05/20 Patient has never smoked Exercise Type/Frequency Does not exercise curren tly Exercise Limitations Other Pain in low er back and left leg Allergies, Adverse Reactions, Alerts Description No Known Drug Allergies Medications Active Medications SIG Qnty Indications Ordering Provide r Date Aspirin 81mg Tablets DR 1 by mouth every day Unknown 12/04/2020 Viibryd 40mg Tablets 1 by shelton th daily Unknown 12/04/2020 Buspirone HCL 10mg Tablets 1 by mouth twice every day Unknown 12/04/2020 Crestor 40mg Tablets 1 by mouth every day at bedtime Unknown 12/04/2020 Lisinopril 10mg Tablets 1 by mouth every day Unknown 12/04/[address] 1 by mouth twice every day Unknown 12/04/2020 Gabapentin 300mg Capsules 1 by mouth three times a day Unknown 12/04/2020 Multivitamin Adult Tablets 1 by mouth ever Unknown 12/04/2020 Vitamin D 1000Unit Tablets 1 by mouth every day Unknown 12/04/2020 Immunizations Description No Information Available Vital Signs Date Vital Result Comment 12/05/2020 10:50am Weight 229.00 lb Home Weight 229lb home weight Height 63 inches 5'3" BMI (Body Mass Index) 40.6 kg/m2 Heart Rate 57 /min BP Systolic Sitting 135 mmHg CBP, large cuff/Ra BP Diastolic Sitting 75 mmHg CBP, large cuff/Ra Results Test Acquired Date Facility Test Result H/L Range Note CBC without Differential 11/06/2020 [facility] ([facility])- - White Blood Count 6.0 4.3-10.9 Red Blood Count 4.13 Low 4.70-6.20 Platelets 219 130-400 Hemoglobin 11.5 Low 13.0-17.0 Hematocrit 36.7 Low 39.0-50.0 BMP 11/06/2020 [facility] ([facility])- - Calcium Ser/Plasma Mass/Vol 8.6 Sodium 144 Carbon Dioxide Ser/Plasm 28 Chloride Serum/Plasma 109 Potassium 3.9 Glucose 100 70-100 Blood Urea Nitrogen 13 5-21 Creatinine 0.67 0.6-1.5 G F R 60.0 CMP 08/14/2020 [facility] - not interfaced (315)- - Albumin Serum/Plasma 4.0 Alt - SGPT 28 Calcium Ser/Plasma Mass/Vol 9.2 Carbon Dioxide Ser/Plasm 29 Chloride Serum/Plasma 111 Alkaline Phosphatase 140 Potassium 4.5 Protein Total 7.0 Sodium 144 Ast - Sgot 15 BUN - Urea Nitrogen 13 Glucose 105 83-110 Creatinine For GFR 0.72 Lipid Profile/Cardiac Risk Pro 08/14/2020 [facility] - not interfaced (315)- - Triglycerides 184 High <150 Cholesterol 195 <200 HDL 62 >40.0 LDL Cholesterol 95 Chol/HDL Ratio 3.145 <5 CBC without Differential 08/14/2020 [facility] - not inter faced (315)- - White Blood Count 5.6 5.0-10.0 Red Blood Count 4.30 4.00-5.40 Platelets 218 172-450 Hemoglobin 12.1 Hematocrit 38.3 Procedures Date Code Description Status 12/05/2020 69029 Arterial Pressure Wa veform Analysis For Assessment Of Central Art Completed 12/05/2020 41636 ECG 12-Lead Completed Medical Devices Description No Information Available Encounters Type Date Location Provider Dx Diagnosis Office Visit 12/05/2020 10:30a Main Office Kael Pineda MD Q21.1 Atrial septal defect I63.9 Cerebral infarction, unspeci fied I10 Essential (primary) hyperten josiah E78.2 Mixed hyperlipidemia E66.01 Morbid (severe) obesity due to excess calories R00.2 Palpitations R60.0 Localized edema Z71.3 Dietary counseling and surve illance Assessments Date Code Description Provider 12/05/2020 Q21.1 Atrial septal defect Kael yanes MD 12/05/2020 I63.9 Cerebral infarction, unspecified Kael Pineda MD 12/05/2020 I10 Essential (primary) hypertension Kael Pineda MD 12/05/2020 E78.2 Mixed hyperlipidemia Kael yanes MD 12/05/2020 E66.01 Morbid (severe) obesity due to e xcess calories Kael Pineda MD 12/05/2020 R00.2 Palpitations Kael Pineda MD 12/05/2020 R60.0 Localized edema Kael Pineda MD 12/05/2020 Z71.3 Dietary counseling and surveilla nce Kael Pineda MD Plan of Treatment Future Appointment(s):* 01/16/2021 2:30 pm - Holter/Event/Telemetry at Main Office 12/05/2020 - Kael Pineda MD* Q21.1 Atrial septal defect* Recommendations: * JUANITA with saline bubble contrast was explained to the patient (and her daughter who is visiting in view of the patient's cell phone on speaker). Risks of JUANITA were explained to the patient including, but not all-inclusive: Aspiration, adverse drug reaction, respiratory arrest, broken teeth, esophageal rupture (11/4999). Patient was agreeable to proceed with JUANITA with saline bubble contrast. Arrangements in progress for patient to undergo outpatient JUANITA with saline bubble contrast at [facility]. Continue aspirin at the current dosage for now. Device closure of presumed PFO remains with Dr. Gisela Franks. I did explain to the patient that some physicians prefer patients to have an implantable loop recorder present for 6 months to rule out paroxysmal atrial fibrillation prior to proceeding with PFO closure; I explained to the patient that this decision would be entirely with Dr. Gisela Franks if that was his preference. * I63.9 Cerebral infarction, unspecified * I10 Essential (primary) hypertension* Recommendations:* Continue lisinopril 10 mg/d. Long-term evaluation/management of systemic retention remains at this patient's PCP. LOW FAT, WHOLE-FOOD, PLANT-BASED DIET - Include fruits, vegetables, intact whole grains, beans & legumes; especially green leafy vegetables, cruciferous vegetables (e.g., broccoli, kale, cauliflower, brussel sprouts, cabbage), turmeric, ground flaxseeds - Avoid animal products (meat, poultry, fish, dairy products, eggs) - Avoid processed foods (added sugar, high fructose corn syrup, oil, salt) - Low Fat (8-12% of total calories) - No liquid oils, margarine, shortening, butter, lard, mayonnaise. - No trans-fats (partially hydrogenated oils). - No alcohol - No artificial sweeteners - B12 supplement if completely vegan and not on adequate amounts of B12 fortified foods - Non-GMO preferred - Avoid artificial food colors - No fish oil LOW SODIUM - Target total daily sodium 2681-5744 mg /d [do not go below 2300 mg/d] - No added salt. - Rule of thumb : Strive for sodium/calorie ratio less than or equal to 1.0 EXERCISE ADVICE (General exercise advice; depends on health conditions) Cardio: Walking or equivalent aerobic activity for 40-60 minutes at least 5 times a week and preferably everyday. Front planks 3 daily (30 seconds each) Resistance training 20-30 minutes, at least 2-3 times per week * E78.2 Mixed hyperlipidemia* Recommendations:* Continue rosuvastatin 40 mg at bedtime. Long-term evaluation/management remains with this patient's PCP. Nutrition and exercise advice as described above. * E66.01 Morbid (severe) obesity due to excess calories* Recommendations:* Nutrition and exercise advice as above. * R00.2 Palpitations* New Orders:* Event Monitor, Scheduled: 01/16/21 * Recommendations:* Event monitor x 30 days. * R60.0 Localized edema* Recommendations:* Bilateral lower extremity venous ultrasound was ordered. * Z71.3 Dietary counseling and surveillance * All * Follow up:* Schedule JUANITA with bubble study by Dr. Pineda at [facility] outpatient procedure (OPP). Functional Status Functional Condition Comment Date Status Independent with all ADL's Activ e Mental Status Description No Information Available Referrals Description No Information Available
--- OUTSIDE RECORDS SUMMARY | 2020-12-20 10:14 | CCD | Continuity of Care Document ---
Author Author Susy PERSAUD M.D. Organization Unknown Address [address] [place] [address] Phone [phone] Care Team Providers Care Application Development Liaison Name Role Phone Korin Lemus AUTM [phone] Problems Active Problems Provider Date Low back [...] lb BMI (Body Mass Index) 41.1 kg/m2 [place] Body Weight 110 lb Results Description No Information Available Procedures Date Code Description Status 08/14/2020 88359 Nerve Conduction 11-12 Studies C ompleted 08/14/2020 58370 Needle Electromyography Complete , Five Or More Muscles Studied Completed 08/14/2020 78318 Needle Electromyography Complete , Five Or More Muscles Studied Completed 08/07/2020 36354 Nerve Conduction 7-8 Studies Com pleted 08/07/2020 28014 Needle Electromyography Complete , Five Or More Muscles Studied Completed 08/07/2020 60062 Needle Electromyography Complete , Five Or More Muscles Studied Completed Medical Devices Description No Information Available Encounters Type Date Location Provider Dx Diagnosis Office Visit 10/03/2020 3:30p Main office - [place] Betty Hung , M.DAbena M51.36 Other intervertebral disc degeneration, 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 10/03/2020 G60.9 Hereditary and idiopathic neurop athy, unspecified Betty Hung, M.D. 10/03/2020 G25.81 Restless legs syndrome Betty La tif, M.DAbena 10/03/2020 G47.30 Sleep apnea, unspecified Betty Hung, M.D. 08/14/2020 M54.89 Other dorsalgia Mike Hendricks M.D. [...] injuries of head , initial encounter Betty Persaud M.D. 08/03/2020 M54.2 Cervicalgia Gladys Weiner 08/03/2020 R20.2 Paresthesia of skin Betty Persaud M.D. 08/03/2020 G47.30 Sleep apnea, unspecified Betty Persaud M.D. 08/03/2020 M62.9 Disorder of muscle, unspecified Betty Persaud M.D. Plan of Treatment Future Appointment(s):* 01/29/2021 3:30 pm - Betty Persaud M.D. at Main office - [place] Functional Status Description No Information Available Mental Status Description No Information Available Referrals Description No Information Available
--- OUTSIDE RECORDS SUMMARY | 2020-12-20 10:14 | CCD | Continuity of Care Document ---
Author Organization Unknown Address Unknown Phone Unavailable Care Team Providers Care Global Regulatory Affairs Manager Name Role Phone Radhasudheer Korin GONZALES AUTM [phone] Gisela Franks MD AUTM [phone] Problems Active Problems Provider Date Ostium secundum type atrial septal defect Kael Pineda MD Onset: 12/05/2020 Social History Type Date Description Comments Sex Unknown ETOH Use Does not consume alcohol Tobacco Use Start: Unknown Patient has never smoked Exercise Type/Frequency Does [...] 5'3" BMI (Body Mass Index) 40.6 kg/m2 Results Test Acquired Date Facility Test Result H/L Range Note CBC without Differential 11/06/2020 [facility] ([facility])- - White Blood Count 6.0 4.3-10.9 Red Blood Count 4.13 Low 4.70-6.20 Platelets 219 130-400 Hemoglobin 11.5 Low 13.0-17.0 Hematocrit 36.7 Low 39.0-50.0 BMP 11/06/2020 [facility] ([facility])- - Calcium Ser/Plasma Mass/Vol 8.6 Sodium 144 Carbon Dioxide Ser/Plasm 28 Chloride Serum/Plasma 109 Potassium 3.9 Glucose 100 70-100 Blood Urea Nitrogen 13 5-21 Creatinine 0.67 0.6-1.5 G F R 60.0 CMP 08/14/2020 [facility] - not interfaced (315)- - Albumin Serum/Plasma 4.0 Alt - SGPT 28 Calcium Ser/Plasma Mass/Vol 9.2 Carbon Dioxide Ser/Plasm 29 Chloride Serum/Plasma 111 Alkaline Phosphatase 140 Potassium 4.5 Protein Total 7.0 Sodium 144 Ast - Sgot 15 BUN - Urea Nitrogen 13 Glucose 105 83-110 Creatinine For GFR 0.72 Lipid Profile/Cardiac Risk Pro 08/14/2020 [facility] - not interfaced (315)- - Triglycerides 184 High <150 Cholesterol 195 <200 HDL 62 >40.0 LDL Cholesterol 95 Chol/HDL Ratio 3.145 <5 CBC without Differential 08/14/2020 [facility] - not inter faced (315)- - White Blood Count 5.6 5.0-10.0 Red Blood Count 4.30 4.00-5.40 Platelets 218 172-450 Hemoglobin 12.1 Hematocrit 38.3 Procedures Description No Information Available Medical Devices Description No Information Available Encounters Description No Information Available Assessments Date Code Description Provider 12/05/2020 Q21.1 Atrial septal defect Kael yanes MD Plan of Treatment No Information Available Functional Status Functional Condition Comment Date Status Independent with all ADL's Activ e Mental Status Description No Information Available Referrals Description No Information Available
--- OUTSIDE RECORDS SUMMARY | 2020-12-20 10:14 | CCD | Continuity of Care Document ---
Author Author Susy PERSAUD M.D. Organization Unknown Address [address] [place] [address] Phone [phone] Care Team Providers Care Distributor Operator Name Role Phone Korin Lemus AUTM [phone] Problems Active Problems Provider Date Low back [...] lb BMI (Body Mass Index) 41.1 kg/m2 [place] Body Weight 110 lb Results Description No Information Available Procedures Date Code Description Status 08/14/2020 91037 Nerve Conduction 11-12 Studies C ompleted 08/14/2020 87793 Needle Electromyography Complete , Five Or More Muscles Studied Completed 08/14/2020 39659 Needle Electromyography Complete , Five Or More Muscles Studied Completed 08/07/2020 96960 Nerve Conduction 7-8 Studies Com pleted 08/07/2020 76267 Needle Electromyography Complete , Five Or More Muscles Studied Completed 08/07/2020 25423 Needle Electromyography Complete , Five Or More Muscles Studied Completed Medical Devices Description No Information Available Encounters Type Date Location Provider Dx Diagnosis Office Visit 10/03/2020 3:30p Main office - [place] Betty Hung , M.DAbena M51.36 Other intervertebral disc degeneration, lumbar 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 Plan of Treatment Future Appointment(s):* 11/27/2020 3:15 pm - Betty Persaud M.D. at [facility] * 01/29/2021 3:30 pm - Betty Persaud M.D. at [facility] Functional Status Description No Information Available Mental Status Description No Information Available Referrals Description No Information Available
--- OUTSIDE RECORDS SUMMARY | 2020-12-20 10:14 | CCD | Continuity of Care Document ---
Author Author Susy BOLAÑOS Organization Unknown Address [address] [place] [address] Phone [phone] Care Team Providers Care Ocean Transportation Intermediary Name Role Phone KORIN LEMUS NP AUTM [phone] Social History Type Date Description Comments Sex Unknown Allergies, Adverse Reactions, Alerts Description No Known Drug Allergies Medications Active Medications SIG Qnty Indications Ordering Provide r Date Lisinopril 10mg Tablets take one tablet by mouth daily 90tabs [facility] 000 Rosuvastatin Calcium 10mg Tablets Take 1 Tablet By Mouth Once Daily In The Evening Unknow n Viibryd 40mg Tablets Take One Tablet By Mouth Daily Unknown Gabapentin 300mg Capsules Take One Tablet By Mouth Three Times Daily Unknown Omeprazole 40mg Capsules DR Take One Tablet By Mouth Daily [facility] Buspirone HCL 10mg Tablets Take 1 Tablet By Mouth Twice Daily Unknown Vitamin D3 50mcg (1999 Ut) Capsule s 1 by mouth every day 90caps Thai [facility]ay [facility] 000 Multi Vitamin Tablets Take One Tablet By Mouth Daily [facility] 000 Calcium 600 600mg Tablets 1 by mouth every day Thai [facility]ay [facility] 0 000 Medications Administered in Office Medication SIG Qnty Indications Ordering Provider Date Technetium TC 99M Sestamibi Injection Thai Shay [facility] 04/22/2019 Vital Signs Date Vital Result Comment 11/13/2020 3:16pm Height 64 inches 5'4" Weight 229.38 lb BMI (Body Mass Index) 39.4 kg/m2 Body Temperature 97.5 F BP Systolic 158 mmHg BP Diastolic 92 mmHg Heart Rate 78 /min O2 % BldC Oximetry 97 % Results Test Acquired Date Facility Test Result H/L Range Note Total Iron Binding Capacit 06/23/2020 [facility] ical [address] [place], [place] [id number] [phone] Iron (Fe) 70 g/dL Normal 50-170 Total Iron Binding Capacity 414 g/dL Normal 250-450 Percent Saturation 16.9 % Normal 13.2-45.0 Laboratory test finding [facility] [address] [place] [address] [phone] Thyroid Stimulating Hormone 2.240 uIU/ML Normal 0. 358-3.740 Ferritin 84 NG/ML Normal 8-252 Complete Blood Count 06/23/2020 [facility] [address] [place] [address] [phone] White Blood Count 6.7 10 Normal 4.0-10.0 Red Blood Count 4.53 10 Normal 4.00-5.40 Hemoglobin 13.1 g/dL Normal 12.0-15.5 Hematocrit 40.8 % Normal 36.0-47.0 Mean Corpuscular Volume 90.1 fl Normal 80.0-96.0 Mean Corpuscular Hemoglobin 28.9 pg Normal 27.0-33.0 Mean Corpuscular HGB Conc 32.1 g/dL Normal 32.0-36.5 Red Cell Distribution Width 13.5 % Normal 11.5-14.5 Platelet Count, Automated 244 10 Normal 150-450 Neutrophils % 58.9 % Normal 36.0-66.0 Lymph % 30.4 % Normal 24.0-44.0 [place] % 7.6 % High 0.0-5.0 Eos % 2.1 % Normal 0.0-3.0 Baso % 0.6 % Normal 0.0-1.0 Immature Granulocyte % 0.4 % Normal 0-3.0 Nucleated Red Blood Cell % 0.0 % Normal 0-0 Neutrophils # 4.0 10 Normal 1.5-8.5 Lymph # 2.1 10 Normal 1.5-5.0 [place] # 0.5 10 Normal 0.0-0.8 Eos # 0.1 10 Normal 0.0-0.5 Baso # 0.0 10 Normal 0.0-0.2 Encounters Type Date Location Provider Dx Diagnosis Office Visit 11/13/2020 2:30p [facility] Korin Lemus NP I 10 Essential (primary) hypertension Q21.1 Atrial septal defect Office Visit 10/26/2020 12:00p [facility] BERT Villatoro Z03.818 Encntr for obs for susp exps r to oth biolg agents ruled out Office Visit 08/23/2020 2:00p [facility] Korin Lemus NP I 10 Essential (primary) hypertension E78.5 Hyperlipidemia, unspecified K21.9 Gastro-esophageal reflux dis ease without esophagitis Assessments Date Code Description Provider 11/13/2020 I10 Essential (primary) hypertension Korin Lemus NP 11/13/2020 Q21.1 Atrial septal defect Korin porter NP 10/26/2020 Z03.818 Encounter for observ ation for suspected exposure to other biological agents ruled out BERT Manuel 08/23/2020 I10 Essential (primary) hypertension Korin Lemus NP 08/23/2020 E78.5 Hyperlipidemia, unspecified Dennis Lemus NP 08/23/2020 K21.9 Gastro-esophageal reflux disease without esophagitis Korin Lemus NP 05/17/2020 I10 Essential (primary) hypertension Korin Lemus NP 05/17/2020 E78.5 Hyperlipidemia, unspecified Dennis Lemus NP Plan of Treatment Future Appointment(s):* 01/10/2021 2:00 pm - Korin Lemus NP at [facility] Building 11/13/2020 - Korin Lemus NP* I10 Essential (primary) hypertension * Q21.1 Atrial septal defect
--- OUTSIDE RECORDS SUMMARY | 2020-12-20 10:14 | CCD ---
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 M47.817 Active 72082872 Problem Sacroiliitis M46.1 Active 08570563 Problem Other chronic pain G89.29 Active 84744408 Problem Intervertebral disc disorder with radiculopathy of lumbar region M51.16 Active 11506820 Problem Intervertebral disc disorder with radiculopathy of lumbosacral region M51.17 Active 22027690 Problem Spondylosis of lumbar region without myelopathy or radiculopathy M47.816 Active 96051146 ALLERGIES No Known Allergies ENCOUNTERS from 1960 to 2020-12-04 Encounter Location Date Provider Diagnosis [facility] [address] [place] [address] 11 Nov, 2020 Gracie Akhtar IMMUNIZATIONS Vaccine Route Administration Date Status Influenza (6mo & up) Fluzone Unknown January 24, 2016 Ref used SOCIAL HISTORY Tobacco Use: Social History Observation Description Date Details (start date - stop date) Never Smoker Sex Assigned At : Social History Observation Description Sex Assigned At Unknown Education: Question Answer Notes Level of Education: Finished [employer] Degree Pentecostalism: Question Answer Notes Pentecostalism 21 Yazdanism Alcohol Screening: Question Answer Notes Did you [...] Orally Daily Act soren Vitamin D (Ergocalciferol) 59466 UNIT 1 capsule Orally Not-Taking PROCEDURES No Information RESULTS No Results REASON FOR VISIT Pre Procedure Clearance MEDICAL (GENERAL) HISTORY Type Description Date Medical [...] PLAN OF TREATMENT Next Appt Details Provider Name:Moises Stallings, 2020-12-13 01:00:00 PM, [address] [place] [address], [phone], Provider Name:Gracie Akhtar, 2021-01-08 09 :15:00 AM, [address] [place] [address], [phone], Insurance Providers Payer Name Payer Address Payer Phone Insured Name Patient Relati onship to Insured Coverage Start Date Coverage End Date MEDICARE Part A and B [address] [facility] [id number] [employer] [place] [employer] [address] [facility] [address] [place] self
--- OUTSIDE RECORDS SUMMARY | 2020-12-20 10:14 | CCD ---
Continuity of Care Document (CCD) Created on: 12/05/2020 Susy Fernandes External Reference #: [id number] : [id number] Sex: Female Author Author Susy PALAFOX MD Organization Unknown Address [address] [place] [address] [address] [place] [address] Phone [phone] Care Team Providers Care Custom Bookbinder Name Role Phone Thai Shay MD AUTM [phone] Problems Description No Information Available Social History Type Date Description Comments Sex Unknown ETOH Use Denies alcohol use Tobacco Use Start: Unknown Patient has never smoked Allergies, Adverse Reactions, Alerts Description No Known Drug Allergies Medications Active Medications SIG Qnty Indications Ordering Provide r Date Buspirone HCL 10mg Tablets 1 by mouth twice times a day Unknown Calcium 600 600mg Tablets 1 by mouth daily Unknown Gabapentin 300mg Capsules 1 tablet by mouth tid Unknown Ibuprofen 800mg Tablets 1 tablet by mouth every 12 hours as needed Unknown 000 Lisinopril 20mg Tablets 1 by mouth every day 90tabs Unknown Multivitamin Tablets 1 by mouth every day Unknown Omeprazole 40mg Capsules DR Unknown Rosuvastatin Calcium 10mg Tablets 1 by mouth every day Unknown Viibryd 40mg Tablets 1 Ta blet by mouth Unknown Vitamin D3 50mcg (1999 Ut) Capsule s 1 by mouth every day Unknown Asa 81mg Tablets 1 by mouth e very day Unknown History Medications Levofloxacin 500mg Tablets Unknown 11/25/2020 - 12/01/2020 Immunizations Description No Information Available Vital Signs Date Vital Result Comment 11/28/2020 3:40pm BP Systolic Left Arm 110 mmHg BP Diastolic Left Arm 68 mmHg Heart Rate 78 /min Weight 229.00 lb Height 63 inches 5'3" BMI (Body Mass Index) 40.6 kg/m2 High Density Lipid 62 08/14/2020 Low Density Lipid 96 Triglycerides 184 Total Cholesterol 194 BSA (Body Surface Area) 2.05 m2 Results Description No Information Available Procedures Description No Information Available Medical Devices Description No Information Available Encounters Type Date Location Provider Dx Diagnosis Office Visit [facility]28[facility]2020 [facility]is[facility] Palafox MD Q21.1 Atrial septal defect I63.40 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
--- OUTSIDE RECORDS SUMMARY | 2020-12-20 10:14 | CCD | Continuity of Care Document ---
Author Author Susy PERSAUD M.D. Organization Unknown Address [address] [place] [address] Phone [phone] Care Team Providers Care Curbing Stonecutter Name Role Phone Korin Lemus AUTM [phone] Problems Active Problems Provider Date Low back [...] lb BMI (Body Mass Index) 41.1 kg/m2 [place] Body Weight 110 lb Results Description No Information Available Procedures Date Code Description Status 08/14/2020 36422 Nerve Conduction 11-12 Studies C ompleted 08/14/2020 72758 Needle Electromyography Complete , Five Or More Muscles Studied Completed 08/14/2020 79391 Needle Electromyography Complete , Five Or More Muscles Studied Completed 08/07/2020 20412 Nerve Conduction 7-8 Studies Com pleted 08/07/2020 37170 Needle Electromyography Complete , Five Or More Muscles Studied Completed 08/07/2020 23890 Needle Electromyography Complete , Five Or More Muscles Studied Completed Medical Devices Description No Information Available Encounters Type Date Location Provider Dx Diagnosis Office Visit 11/27/2020 3:15p Main office - [place] Betty Persaud M.D. G47.51 Confusional arousals I67.89 Other cerebrovascular diseas e G47.00 Insomnia, unspecified G60.9 Hereditary and idiopathic ne uropathy, unspecified G25.89 Other specified extrapyramid al and movement disorders G47.30 Sleep apnea, unspecified M62.9 Disorder of muscle, unspecif ied R47.01 Aphasia Office Visit 10/03/2020 3:30p Main office - [place] Persaud M.D. M51.36 Other intervertebral disc degeneration, lumbar region G60.9 Hereditary and idiopathic ne uropathy, unspecified G25.81 Restless legs syndrome G47.30 Sleep apnea, unspecified Office Visit 08/03/2020 3:30p Main office - [place] Betty Persaud M.D. M47.892 Other spondylosis, cervical region M51.36 Other intervertebral disc de generation, lumbar region M54.5 Low back pain S09.8xxA Other specified injuries of head, initial encounter M54.2 Cervicalgia R20.2 Paresthesia of skin G47.30 Sleep apnea, unspecified M62.9 Disorder of muscle, unspecif ied Assessments Date Code Description Provider 11/27/2020 G47.51 Confusional arousals Betty pappas M.D. 11/27/2020 I67.89 Other cerebrovascular disease Oliveros ndus Hung M.D. 11/27/2020 G47.00 Insomnia, unspecified Betty tim M.D. 11/27/2020 G60.9 Hereditary and idiopathic neurop athy, unspecified Bettyus Hung M.D. 11/27/2020 G25.89 Other specified extrapyramidal a nd movement disorders Betty Persaud M.D. 11/27/2020 G47.30 Sleep apnea, unspecified Bettyus Hung M.D. 11/27/2020 M62.9 Disorder of muscle, unspecified Betty Hung, M.D. 11/27/2020 R47.01 Aphasia Betty Hung, M. D. 10/03/2020 M51.36 Other intervertebral disc degene ration, lumbar region Betty Hung, M.D. 10/03/2020 G60.9 Hereditary and idiopathic neurop athy, unspecified Betty Hung, M.D. 10/03/2020 G25.81 Restless legs syndrome Betty La tif, M.D. 10/03/2020 G47.30 Sleep apnea, unspecified Betty Hung, M.D. 08/14/2020 M54.89 Other dorsalgia Zoe Lackey.DAbena 08/14/2020 R20.2 Paresthesia of skin Zoe Lackey.DAbena 08/07/2020 M79.601 Pain in right arm Zoe Lackey. DAbena 08/07/2020 R20.2 Paresthesia of skin Zoe Lackey.DAbena 08/03/2020 M47.892 Other spondylosis, cervical joseline on [...] 08/03/2020 M62.9 Disorder of muscle, unspecified Betty HungGladysDAbena Plan of Treatment Future Appointment(s):* 12/15/2020 11:45 am - Ans/VS at [facility] * 12/28/2020 9:15 am - Betty Persaud M.D. at [facility] * 01/29/2021 3:30 pm - Betty Persaud M.D. at [facility] Functional Status Description No Information Available Mental Status Description No Information Available Referrals Refer to Reason for Referral Status Appt Date Created
--- OUTSIDE RECORDS SUMMARY | 2020-12-20 10:14 | CCD | Continuity of Care Document ---
Author Author Susy PALAFOX MD Organization Unknown Address [address] [place] [address] [address] [place] [address] Phone [phone] Care Team Providers Care Plating Machine Operator Name Role Phone Thai Shay MD AUTM [phone] Problems Description No Information Available Social History Type Date Description Comments Sex Unknown ETOH Use Denies alcohol use Tobacco Use Start: Unknown Patient has never smoked Allergies, Adverse Reactions, Alerts Description No Known Drug Allergies Medications Active Medications SIG Qnty Indications Ordering Provide r Date Levofloxacin 500mg Tablets Unknown 11/25/2020 Buspirone HCL 10mg Tablets 1 by mouth twice times a day Unknown Calcium 600 600mg Tablets 1 by mouth daily Unknown Gabapentin 300mg Capsules 1 tablet by mouth tid Unknown Ibuprofen 800mg Tablets 1 tablet by mouth every 12 hours as needed Unknown Lisinopril 20mg Tablets 1 by mouth every [...] 1 by mouth e very day Unknown Immunizations Description No Information Available Vital Signs [...] Provider Dx Diagnosis Office Visit 11/28/2020 3:30p [facility] Gisela Palafox MD Q21.1 Atrial septal defect [...]
--- OUTSIDE RECORDS SUMMARY | 2020-12-20 10:14 | CCD ---
Continuity of Care Document (CCD) Created on: 12/11/2020 DenaAngieSusy External Reference #: [id number] : [id number] Sex: Female Author Author Susy ARMENDARIZ M.D Organization Unknown Address [address] [place] [address] Phone [phone] Care Team Providers Care Truck Operator Name Role Phone Korin Lemus AUTM Unavailable Chano Fajardo M.D. AUTM [phone] Problems Active Problems Provider Date Gastroesophageal reflux disease Claudio Armendariz M.D. Ons et: 04/27/2019 Screening for malignant neoplasm of colon Claudio khan M.D. Onset: 04/09/2016 Family history of malignant neoplasm of gastrointestin al tract Jigna RickettsNCinthya Onset: 08/10/2013 Gastroesophageal reflux disease Jigna RickettsNCinthya Ons et: 08/10/2013 Dysphagia Jigna RickettsNCinthya Onset: 08/10/20 13 Essential hypertension Onset: 08/10/2013 Social History Type Date Description Comments Sex Unknown ETOH Use Denies alcohol use Tobacco Use Start: Unknown Patient has never smoked Allergies, Adverse Reactions, Alerts Description No Known Drug Allergies Medications Active Medications SIG Qnty Indications Ordering Provide r Date Sutab [id number] Tablets as directed 1box Claudio Armendariz M.D. 12/07/2020 Crestor 10mg Tablets Unknown Buspirone HCL 10mg Tablets Unknown Gabapentin 300mg Capsules Unknown Viibryd 10mg Tablets Unknown Omeprazole 40mg Capsules DR Take 1 Capsule By Mouth Twice Daily Unknown Lisinopril 10mg Tablets Take 1 Tablet By Mouth Once Daily Unknown Aspirin Ec Low Dose 81mg Tablets DR Unknown Multiple Vitamin Tablets Unknown D3 High Potency 25mcg (1000 Ut) Ca psules Unknown Calcium 250mg Capsules Unknown Immunizations Description No Information Available Vital Signs Date Vital Result Comment 12/07/2020 3:07pm Height 64 inches 5'4" Weight 230.00 lb BP Systolic 135 mmHg BP Diastolic 83 mmHg Heart Rate 90 /min BMI (Body Mass Index) 39.5 kg/m2 Weight 104.328 kg Body Temperature 97.7 F 04/27/2019 9:38am Height 64 inches 5'4" Weight 240.00 lb BP Systolic 125 mmHg BP Diastolic 81 mmHg Heart Rate 56 /min BMI (Body Mass Index) 41.2 kg/m2 Weight 108.864 kg Results Description No Information Available Procedures Description No Information Available Medical Devices Description No Information Available Encounters Type Date Location Provider Dx Diagnosis Office Visit 12/07/2020 2:45p Main Office Claudio Armendariz M.D. C 18.2 Malignant neoplasm of ascending colon R12 Heartburn Assessments Date Code Description Provider 12/07/2020 C18.2 Malignant neoplasm of ascending colon Claudio Armendariz M.D. 12/07/2020 R12 Heartburn Claudio jaquez M.D. Plan of Treatment Future Appointment(s):* 12/20/2020 11:30 am - Claudio Armendariz M.D. at Main Office 12/07/2020 - Claudio Armendariz M.D.* C18.2 Malignant neoplasm of ascending colon* Comments:* 60 yo wf who presents for a repeat colonoscopy/egd for surveillance of her colon cancer + heartburn. 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 Rectal bleeding sporadically. Last scope 2019 -egd, colon-2018.Plan:1. Colonoscopy + egd.2. Informed consent. * R12 Heartburn* Comments:* Schedule EGD.Informed consent given. Functional Status Description No Information Available Mental Status Description No Information Available Referrals Description No Information Available
--- OUTSIDE RECORDS SUMMARY | 2020-12-20 10:14 | CCD | Continuity of Care Document ---
Author Author Susy ESPINOSA MD Organization Unknown Address [address] [facility], [facility] [place] [address] Phone [phone] Care Team Providers Care Box Feeder Name Role Phone RadhasudheerKorin AUTM [phone] Gisela Franks MD AUTM [phone] Betty Persaud MD AUTM [phone] Problems Active Problems Provider Date Edema Kael Espinosa MD Onset: 12/05/2020 Palpitations Kale Espinosa MD Onset: 12/05/2020 Mixed hyperlipidemia Kael Espinosa MD Onset: 12/05/2020 Dietary management surveillance Kael Espinosa MD Onset: 12/05/2020 Morbid obesity Kael Espinosa MD Onset: 12/05/2020 Pure hypercholesterolemia Kael Espinosa MD Onset: 2020 Essential hypertension Kael Espinosa MD Onset: Cerebral artery occlusion Kael Espinosa MD Onset: 2020 Ostium secundum type atrial septal defect Kael Espinosa MD Onset: 12/05/2020 Social History Type Date [...] 11.5 Low 13.0-17.0 Hematocrit 36.7 Low 39.0-50.0 [facility] 11/06/2020 [facility] (315)- - Calcium Ser/Plasma Mass/Vol 8.6 Sodium 144 Carbon Dioxide Ser/Plasm 28 Chloride Serum/Plasma 109 Potassium 3.9 Glucose 100 70-100 Blood Urea Nitrogen 13 5-21 Creatinine 0.67 0.6-1.5 G F R 60.0 CMP 08/14/2020 [facility] - not interfaced (315)- - Albumin Serum/Plasma 4.0 Alt - SGPT 28 Calcium Ser/Plasma Mass/Vol 9.2 Carbon Dioxide Ser/Plasm 29 Chloride Serum/Plasma 111 Alkaline Phosphatase 140 Potassium 4.5 Protein Total 7.0 Sodium 144 Ast - Sgot 15 BUN - Urea Nitrogen 13 Glucose 105 83-110 Creatinine For GFR 0.72 Lipid Profile/Cardiac Risk Pro 08/14/2020 [facility] - not interfaced (315)- - Triglycerides 184 High <150 Cholesterol 195 <200 HDL 62 >40.0 LDL Cholesterol 95 Chol/HDL Ratio 3.145 <5 CBC without Differential 08/14/2020 [facility] - not inter faced (315)- - White Blood Count 5.6 5.0-10.0 Red Blood Count 4.30 4.00-5.40 Platelets 218 172-450 Hemoglobin 12.1 Hematocrit 38.3 Procedures Date Code Description Status 12/05/2020 08804 Arterial Pressure Wa veform Analysis For Assessment Of Central Art Completed 12/05/2020 15762 ECG 12-Lead Completed Medical Devices Description No Information Available Encounters Type Date Location Provider Dx Diagnosis Office Visit 12/05/2020 10:30a Main Office Kael Espinosa MD Q21.1 Atrial septal defect I63.9 Cerebral infarction, unspeci fied I10 Essential (primary) hyperten josiah E78.2 Mixed hyperlipidemia E66.01 Morbid (severe) obesity due to excess calories R00.2 Palpitations R60.0 Localized edema Z71.3 Dietary counseling and surve illance Assessments Date Code Description Provider 12/05/2020 Q21.1 Atrial septal defect Kael yanes MD 12/05/2020 I63.9 Cerebral infarction, unspecified Kael Espinosa MD 12/05/2020 I10 Essential (primary) hypertension Kael Espinosa MD 12/05/2020 E78.2 Mixed hyperlipidemia Kael yanes MD 12/05/2020 E66.01 Morbid (severe) obesity due to e xcess calories Kael Espinosa MD 12/05/2020 R00.2 Palpitations Kael Espinosa MD 12/05/2020 R60.0 Localized edema Kael Espinosa MD 12/05/2020 Z71.3 Dietary counseling and surveilla nce Kael Espinosa MD Plan of Treatment Future Appointment(s):* 01/16/2021 2:30 pm - Holter/Event/Telemetry at Main Office 12/05/2020 - Kael Espinosa MD* Q21.1 Atrial septal defect * I63.9 Cerebral infarction, unspecified * I10 Essential (primary) hypertension * E78.2 Mixed hyperlipidemia * E66.01 Morbid (severe) obesity due to excess calories * R00.2 Palpitations* New Orders:* Event Monitor, Ordered: 12/05/20 * R60.0 Localized edema* New Xrays:* US Duplex Doppler Lower Extremity Veins Bilateral, Ordered: 12/05/20 * Z71.3 Dietary counseling and surveillance * All * Follow up:* Schedule JUANITA with bubble study by Dr. Espinosa at [facility] outpatient procedure (OPP). Functional Status Functional Condition Comment Date Status Independent with all ADL's Activ e Mental Status Description No Information Available Referrals Description No Information Available
--- OUTSIDE RECORDS SUMMARY | 2020-12-20 10:14 | CCD | Continuity of Care Document ---
Author Author Susy PERSAUD M.D. Organization Unknown Address [address] [place] [address] Phone [phone] Care Team Providers Care Rail Project Engineer Name Role Phone Korin Lemus AUTM [phone] Problems Active Problems Provider Date Low back [...] lb BMI (Body Mass Index) 41.1 kg/m2 [place] Body Weight 110 lb Results Description No Information Available Procedures Date Code Description Status 08/14/2020 28192 Nerve Conduction 11-12 Studies C ompleted 08/14/2020 82139 Needle Electromyography Complete , Five Or More Muscles Studied Completed 08/14/2020 86925 Needle Electromyography Complete , Five Or More Muscles Studied Completed 08/07/2020 54625 Nerve Conduction 7-8 Studies Com pleted 08/07/2020 24113 Needle Electromyography Complete , Five Or More Muscles Studied Completed 08/07/2020 65254 Needle Electromyography Complete , Five Or More Muscles Studied Completed Medical Devices Description No Information Available Encounters Type Date Location Provider Dx Diagnosis Office Visit 10/03/2020 3:30p Main office - [place] Betty Hung , M.DAbena M51.36 Other intervertebral disc degeneration, lumbar region G60.9 Hereditary and idiopathic ne uropathy, unspecified G25.81 Restless legs syndrome G47.30 Sleep apnea, unspecified Office Visit 08/03/2020 3:30p Main office - [place] Betty Hung , M.DAbena M47.892 Other spondylosis, [...] G60.9 Hereditary and idiopathic neurop athy, unspecified Btety Hung, M.D. 10/03/2020 G25.81 Restless legs syndrome [...] 3:15 pm - Betty Persaud M.D. at [facility] * 01/29/2021 3:30 pm - Betty Persaud M.D. at [facility] Functional Status Description No Information Available Mental Status Description No Information Available Referrals Description No Information Available
--- OUTSIDE RECORDS SUMMARY | 2020-12-20 10:15 | CCD | Continuity of Care Document ---
Author Author Susy BOLAÑOS Organization Unknown Address [address] [place] [address] Phone [phone] Care Team Providers Care Rim Roller Operator Name Role Phone KORIN LEMUS NP AUTM [phone] Social History Type Date Description Comments Sex [...] DR Take One Tablet By Mouth Daily [facility] Buspirone HCL 10mg Tablets Take [...] Range Note Total Iron Binding Capacit 06/23/2020 [facility] ical [address] [place], [place] [id number] [phone] Iron (Fe) 70 g/dL Normal 50-170 Total Iron Binding Capacity 414 g/dL Normal 250-450 Percent Saturation 16.9 % Normal 13.2-45.0 Laboratory test finding [facility] [address] [place] [address] [phone] Thyroid Stimulating Hormone 2.240 uIU/ML Normal 0. 358-3.740 Ferritin 84 NG/ML Normal 8-252 Complete Blood Count 06/23/2020 [facility] [address] [place] [address] [phone] White Blood Count 6.7 10 Normal 4.0-10.0 [...] 36.0-66.0 Lymph % 30.4 % Normal 24.0-44.0 [place]ham % 7.6 % High 0.0-5.0 Eos % 2.1 % Normal 0.0-3.0 Baso % 0.6 % Normal 0.0-1.0 Immature Granulocyte % 0.4 % Normal 0-3.0 Nucleated Red Blood Cell % 0.0 % Normal 0-0 Neutrophils # 4.0 10 Normal 1.5-8.5 Lymph # 2.1 10 Normal 1.5-5.0 Beckham # 0.5 10 Normal 0.0-0.8 Eos # 0.1 10 Normal 0.0-0.5 Baso # 0.0 10 Normal 0.0-0.2 Encounters Type Date Location Provider Dx Diagnosis Office Visit 10/26/2020 12:00p [facility] BERT Villatoro Z03.818 Encntr for obs for susp exps r to oth biolg agents ruled out Office Visit 08/23/2020 2:00p [facility] Korin Lemus NP I 10 Essential (primary) hypertension E78.5 Hyperlipidemia, unspecified K21.9 Gastro-esophageal reflux dis ease without esophagitis Assessments Date Code Description Provider 10/26/2020 Z03.818 Encounter for observ ation for [...] 2:00 pm - Korin Lemus NP at [facility]
--- OUTSIDE RECORDS SUMMARY | 2020-12-20 10:15 | CCD ---
Author Author [facility] Organization [facility] Address Unknown Phone Unavailable Support Name Relationship Address Phone MORAIMA BARROW Next Of Kin [id number] [facility] [address] [place] [address] [employer] [employer] Next Of [place] [address] [place] [address] CITLALI BARROW Next Of Kin [address] [facility] [address] [place] [address] SAMSCLUB Next Of Kin [address] [place] [address] [facility] Next Of Kin [address] [place] [address] ROMI VASQUEZ Next Of Kin [address] [place] [address] [facility] [place] [address] LAURA WILSON Next Of Kin [address] [place] [address] REZA SPARKS Next Of Kin [address] [place] [address] DISABLED Next Of Kin Unknown Unavailable RONNELL DIA Next Of Kin [address] [facility] [address] [place] [address] AAFES Next Of Kin [id number] [place] [address] FERNIE HARRIS Next Of Kin [address] [place] [address] FERNIE HARRIS Next Of Kin [address] [place] [address] Aniket Dia ECON [address] [place] [address] [phone] Ronnell Dia ECON [address] [place] [address] Unavailable Ronnell Dia ECON [address] [place] [address] Care Team Providers Care Pick Pulling Machine Operator Name Role Phone Mariana Armendariz MD Unavailable Unavailable Mariana Armendariz MD Unavailable Unavailable Mariana Armendariz MD Unavailable Unavailable Mariana Armendariz MD Unavailable Unavailable Mariana Armendariz MD Unavailable Unavailable Mariana Armendariz MD Unavailable Unavailable Mariana Armendariz MD Unavailable Unavailable Mariana Armendariz MD Unavailable Unavailable Mariana Armendariz MD Unavailable Unavailable Mariana Armendariz MD Unavailable Unavailable Mariana Armendariz MD Unavailable Unavailable Mariana Armendariz MD Unavailable Unavailable Mariana Armendariz MD Unavailable Unavailable Mariana Armendariz MD Unavailable Unavailable Mariana Armendariz MD Unavailable Unavailable Mariana Armendariz MD Unavailable Unavailable Mariana Armendariz MD Unavailable Unavailable Mariana Armendariz MD Unavailable Unavailable Mariana Armendariz MD Unavailable Unavailable Mariana Armendariz MD Unavailable Unavailable Mariana Armendariz MD Unavailable Unavailable Mariana Armendariz MD Unavailable Unavailable Mariana Armendariz MD Unavailable Unavailable Mariana Armendariz MD Unavailable Unavailable Mariana Armendariz MD Unavailable Unavailable Mariana Armendariz MD Unavailable Unavailable Mariana Armendariz MD Unavailable Unavailable Mariana Armendariz MD Unavailable Unavailable Mariana Armendariz MD Unavailable Unavailable Mariana Armendariz MD Unavailable Unavailable Mariana Armendariz MD Unavailable Unavailable Mariana Armendariz MD Unavailable Unavailable Mariana Armendariz MD Unavailable Unavailable Mariana Armendariz MD Unavailable Unavailable Mariana Armendariz MD Unavailable Unavailable Mariana Armendariz MD Unavailable Unavailable Mariana Armendariz MD Unavailable Unavailable Mariana Armendariz MD Unavailable Unavailable Mariana Armendariz MD Unavailable Unavailable Mariana Armendariz MD Unavailable Unavailable Mariana Armendariz MD Unavailable Unavailable Mariana Armendariz MD Unavailable Unavailable Mariana Armendariz MD Unavailable Unavailable Mariana Armendariz MD Unavailable Unavailable Mariana Armendariz MD Unavailable Unavailable Mariana Armendariz MD Unavailable Unavailable Mariana Armendariz MD Unavailable Unavailable Mariana Armendariz MD Unavailable Unavailable Mariana Armendariz MD Unavailable Unavailable ANTECOL, Maribell MARES MD Unavailable Unavailable ANTECOL, Maribell MARES MD Unavailable Unavailable ANTECOL, Maribell MARES MD Unavailable Unavailable ANTECOL, Maribell MARES MD Unavailable Unavailable ANTECOL, Maribell MARES MD Unavailable Unavailable ANTECOL, Maribell MARES MD Unavailable Unavailable ANTECOL, Maribell MARES MD Unavailable Unavailable ANTECOL, Maribell MARES MD Unavailable Unavailable ANTECOL, Maribell MARES MD Unavailable Unavailable ANTECOL, Maribell MARES MD Unavailable Unavailable ANTECOL, Maribell MARES MD Unavailable Unavailable ANTECOL, Maribell MARES MD Unavailable Unavailable ANTECOL, Maribell MARES MD Unavailable Unavailable ANTECOL, Maribell MARES MD Unavailable Unavailable ANTECOL, Maribell MARES MD Unavailable Unavailable ANTECOL, Maribell MARES MD Unavailable Unavailable ANTECOL, Maribell MARES MD Unavailable Unavailable ANTECOL, Maribell MARES MD Unavailable Unavailable ANTECOL, Maribell MARES MD Unavailable Unavailable ANTECOL, Maribell MARES MD Unavailable Unavailable ANTECOL, Maribell MARES MD Unavailable Unavailable ANTECOL, Maribell MARES MD Unavailable Unavailable ANTECOL, Maribell MARES MD Unavailable Unavailable ANTECOL, Maribell MARES MD Unavailable Unavailable ANTECOL, Maribell MARES MD Unavailable Unavailable ANTECOL, Maribell MARES MD Unavailable Unavailable ANTECOL, Maribell MARES MD Unavailable Unavailable ANTECOL, Maribell MARES MD Unavailable Unavailable ANTECOL, Maribell MARES MD Unavailable Unavailable ANTECOL, Maribell MARES MD Unavailable Unavailable ANTECOL, Maribell MARES MD Unavailable Unavailable ANTECOL, Maribell MARES MD Unavailable Unavailable ANTECOL, Maribell MARES MD Unavailable Unavailable ANTECOL, Maribell MARES MD Unavailable Unavailable ANTECOL, Maribell MARES MD Unavailable Unavailable ANTECOL, Maribell MARES MD Unavailable Unavailable ANTECOL, Maribell MARES MD Unavailable Unavailable ANTECOL, Maribell MARES MD Unavailable Unavailable ANTECOL, Maribell MARES MD Unavailable Unavailable ANTECOL, Maribell MARES MD Unavailable Unavailable ANTECOL, Maribell MARES MD Unavailable Unavailable ANTECOL, Maribell MARES MD Unavailable Unavailable ANTECOL, Maribell MARES MD Unavailable Unavailable ANTECOL, Maribell MARES MD Unavailable Unavailable ANTECOL, Maribell MARES MD Unavailable Unavailable ANTECOL, Maribell MARES MD Unavailable Unavailable ANTECOL, Maribell MARES MD Unavailable Unavailable ANTECOL, Maribell MARES MD Unavailable Unavailable ANTECOL, Maribell MARES MD Unavailable Unavailable ANTECOL, Maribell MARES MD Unavailable Unavailable ANTECOL, Maribell MARES MD Unavailable Unavailable ANTECOL, Maribell MARES MD Unavailable Unavailable ANTECOL, Maribell MARES MD Unavailable Unavailable ANTECOL, Maribell MARES MD Unavailable Unavailable ANTECOL, Maribell MARES MD Unavailable Unavailable AURELIANO, TONEY THOMASON Unavailable Unavailable AURELIANOTONEY MD Unavailable Unavailable AURELIANO, TONEY THOMASON Unavailable Unavailable AURELIANO, TONEY THOMASON Unavailable Unavailable AURELIANO, TONEY THOMASON Unavailable Unavailable AURELIANO, TONEY THOMASON Unavailable Unavailable AURELIANO, TONEY THOMASON Unavailable Unavailable AURELIANO, TONEY MD Unavailable Unavailable AURELIANO, TONEY MD Unavailable Unavailable AURELIANO, TONEY MD Unavailable Unavailable AURELIANO, TONEY MD Unavailable Unavailable AURELIANO, TONEY MD Unavailable Unavailable AURELIANO, TONEY MD Unavailable Unavailable AURELIANO, TONEY MD Unavailable Unavailable AURELIANO, TONEY MD Unavailable Unavailable AURELIANO, TONEY MD Unavailable Unavailable AURELIANO, TONEY MD Unavailable Unavailable AURELIANO, TONEY MD Unavailable Unavailable AURELIANO, TONEY MD Unavailable Unavailable AURELIANO, TONEY MD Unavailable Unavailable AURELIANO, TONEY MD Unavailable Unavailable AURELIANO, TONEY MD Unavailable Unavailable AURELIANO, TONEY MD Unavailable Unavailable AURELIANO, TONEY MD Unavailable Unavailable AURELIANO, TONEY MD Unavailable Unavailable AURELIANO, TONEY MD Unavailable Unavailable AURELIANO, TONEY MD Unavailable Unavailable AURELIAON, TONEY MD Unavailable Unavailable AURELIANO, TONEY MD Unavailable Unavailable AURELIANO, TONEY MD Unavailable Unavailable AURELIANO, TONEY MD Unavailable Unavailable AURELIANO, TONEY MD Unavailable Unavailable AURELIANO, TONEY MD Unavailable Unavailable AURELIANO, TONEY MD Unavailable Unavailable AURELIANO, TONEY MD Unavailable Unavailable AURELIANO, TONEY MD Unavailable Unavailable AURELIANO, TONEY MD Unavailable Unavailable AURELIANO, TONEY MD Unavailable Unavailable AURELIANO, TONEY MD Unavailable Unavailable AURELIANO, TONEY MD Unavailable Unavailable Mariana PALAFOX MD Unavailable Unavailable Mariana PALAFOX MD Unavailable Unavailable Mariana PALAFOX MD Unavailable Unavailable Mariana PALAFOX MD Unavailable Unavailable Mariana PALAFOX MD Unavailable Unavailable Mariana PALAFOX MD Unavailable Unavailable Mariana PALAFOX MD Unavailable Unavailable Mariana PALAFOX MD Unavailable Unavailable Mariana PALAFOX MD Unavailable Unavailable Mariana PALAFOX MD Unavailable Unavailable Mariana PALAFOX MD Unavailable Unavailable Mariana PALAFOX MD Unavailable Unavailable Mariana PALAFOX MD Unavailable Unavailable Mariana PALAFOX MD Unavailable Unavailable Mariana PALAFOX MD Unavailable Unavailable Mariana PALAFOX MD Unavailable Unavailable Mariana PALAFOX MD Unavailable Unavailable Mariana PALAFOX MD Unavailable Unavailable Mariana PALAFOX MD Unavailable Unavailable Mariana PALAFOX MD Unavailable Unavailable Mariana PALAFOX MD Unavailable Unavailable VIVIENNE, S AYMAN MD Unavailable Unavailable VIVIENNE, S AYMAN MD Unavailable Unavailable VIVIENNE, S AYMAN MD Unavailable Unavailable VIVIENNE, S AYMAN MD Unavailable Unavailable VIVIENNE, S AYMAN MD Unavailable Unavailable VIVIENNE, S AYMAN MD Unavailable Unavailable VIVIENNE, S AYMAN MD Unavailable Unavailable VIVIENNE, S AYMAN MD Unavailable Unavailable VIVIENNE, S AYMAN MD Unavailable Unavailable VIVIENNE, S AYMAN MD Unavailable Unavailable VIVIENNE, S AYMAN MD Unavailable Unavailable VIVIENNE, S AYMAN MD Unavailable Unavailable VIVIENNE, S AYMAN MD Unavailable Unavailable VIVIENNE, S AYMAN MD Unavailable Unavailable VIVIENNE, S AYMAN MD Unavailable Unavailable VIVIENNE, S AYMAN MD Unavailable Unavailable VIVIENNE, S AYMAN MD Unavailable Unavailable VIVIENNE, S AYMAN MD Unavailable Unavailable VIVIENNE, S AYMAN MD Unavailable Unavailable VIVIENNE, S AYMAN MD Unavailable Unavailable VIVIENNE, S AYMAN MD Unavailable Unavailable VIVIENNE, S AYMAN MD Unavailable Unavailable VIVIENNE, S AYMAN MD Unavailable Unavailable VIVIENNE, S AYMAN MD Unavailable Unavailable VIVIENNE, S AYMAN MD Unavailable Unavailable VIVIENNE, S AYMAN MD Unavailable Unavailable VIVIENNE, S AYMAN MD Unavailable Unavailable VIVIENNE, S AYMAN MD Unavailable Unavailable VIVIENNE, S AYMAN MD Unavailable Unavailable VIVIENNE, S AYMAN MD Unavailable Unavailable VIVIENNE, S AYMAN MD Unavailable Unavailable VIVIENNE, S AYMAN MD Unavailable Unavailable VIVIENNE, S AYMAN MD Unavailable Unavailable VIVIENNE, S AYMAN MD Unavailable Unavailable VIVIENNE, S AYMAN MD Unavailable Unavailable VIVIENNE, S AYMAN MD Unavailable Unavailable VIVIENNE, S AYMAN MD Unavailable Unavailable VIVIENNE, S AYMAN MD Unavailable Unavailable VIVIENNE, S AYMAN MD Unavailable Unavailable VIVIENNE, S AYMAN MD Unavailable Unavailable VIVIENNE, S AYMAN MD Unavailable Unavailable VIVIENNE, S AYMAN MD Unavailable Unavailable VIVIENNE, S AYMAN MD Unavailable Unavailable VIVIENNE, S AYMAN MD Unavailable Unavailable VIVIENNE, S AYMAN MD Unavailable Unavailable VIVIENNE, S AYMAN MD Unavailable Unavailable VIVIENNE, S AYMAN MD Unavailable Unavailable Mariana PALAFOX MD Unavailable Unavailable Mariana PALAFOX MD Unavailable Unavailable Mariana PALAFOX MD Unavailable Unavailable Mariana PALAFOX MD Unavailable Unavailable Mariana PALAFOX MD Unavailable Unavailable Mariana PALAFOX MD Unavailable Unavailable Mariana PALAFOX MD Unavailable Unavailable Mariana PALAFOX MD Unavailable Unavailable Mariana PALAFOX MD Unavailable Unavailable Mariana PALAFOX MD Unavailable Unavailable Mariana PALAFOX MD Unavailable Unavailable Mariana PALAFOX MD Unavailable Unavailable Mariana PALAFOX MD Unavailable Unavailable Mariana PALAFOX MD Unavailable Unavailable KIRSCHMAN, L KAITLIN DRYING AND WINDING SUPERVISOR Unavailable Unavailable KIRSCHMAN, L KAITLIN DRYING AND WINDING SUPERVISOR Unavailable Unavailable KIRSCHMAN, L KAITLIN DRYING AND WINDING SUPERVISOR Unavailable Unavailable KIRSCHMAN, L KAITLIN DRYING AND WINDING SUPERVISOR Unavailable Unavailable KIRSCHMAN, L KAITLIN DRYING AND WINDING SUPERVISOR Unavailable Unavailable KIRSCHMAN, L KAITLIN DRYING AND WINDING SUPERVISOR Unavailable Unavailable KIRSCHMAN, L KAITLIN DRYING AND WINDING SUPERVISOR Unavailable Unavailable KIRSCHMAN, L KAITLIN DRYING AND WINDING SUPERVISOR Unavailable Unavailable KIRSCHMAN, L KAITLIN DRYING AND WINDING SUPERVISOR Unavailable Unavailable KIRSCHMAN, L KAITLIN DRYING AND WINDING SUPERVISOR Unavailable Unavailable KIRSCHMAN, L KAITLIN DRYING AND WINDING SUPERVISOR Unavailable Unavailable KIRSCHMAN, L KAITLIN DRYING AND WINDING SUPERVISOR Unavailable Unavailable KIRSCHMAN, L KAITLIN DRYING AND WINDING SUPERVISOR Unavailable Unavailable KIRSCHMAN, L KAITLIN DRYING AND WINDING SUPERVISOR Unavailable Unavailable KIRSCHMAN, L KAITLIN DRYING AND WINDING SUPERVISOR Unavailable Unavailable KIRSCHMAN, L KAITLIN DRYING AND WINDING SUPERVISOR Unavailable Unavailable KIRSCHMAN, L KAITLIN DRYING AND WINDING SUPERVISOR Unavailable Unavailable KIRSCHMAN, L KAITLIN DRYING AND WINDING SUPERVISOR Unavailable Unavailable KIRSCHMAN, L KAITLIN DRYING AND WINDING SUPERVISOR Unavailable Unavailable KIRSCHMAN, L KAITLIN DRYING AND WINDING SUPERVISOR Unavailable Unavailable KIRSCHMAN, L KAITLIN DRYING AND WINDING SUPERVISOR Unavailable Unavailable KIRSCHMAN, L KAITLIN DRYING AND WINDING SUPERVISOR Unavailable Unavailable KIRSCHMAN, L KAITLIN DRYING AND WINDING SUPERVISOR Unavailable Unavailable KIRSCHMAN, L KAITLIN DRYING AND WINDING SUPERVISOR Unavailable Unavailable KIRSCHMAN, L KAITLIN DRYING AND WINDING SUPERVISOR Unavailable Unavailable KIRSCHMAN, L KAITLIN DRYING AND WINDING SUPERVISOR Unavailable Unavailable KIRSCHMAN, L KAITLIN DRYING AND WINDING SUPERVISOR Unavailable Unavailable KIRSCHMAN, L KAITLIN DRYING AND WINDING SUPERVISOR Unavailable Unavailable KIRSCHMAN, L KAITLIN DRYING AND WINDING SUPERVISOR Unavailable Unavailable KIRSCHMAN, L KAITLIN DRYING AND WINDING SUPERVISOR Unavailable Unavailable KIRSCHMAN, L KAITLIN DRYING AND WINDING SUPERVISOR Unavailable Unavailable KIRSCHMAN, L KAITLIN DRYING AND WINDING SUPERVISOR Unavailable Unavailable KIRSCHMAN, L KAITLIN DRYING AND WINDING SUPERVISOR Unavailable Unavailable KIRSCHMAN, L KAITLIN DRYING AND WINDING SUPERVISOR Unavailable Unavailable KIRSCHMAN, L KAITLIN DRYING AND WINDING SUPERVISOR Unavailable Unavailable KIRSCHMAN, L KAITLIN DRYING AND WINDING SUPERVISOR Unavailable Unavailable KIRSCHMAN, L KAITLIN DRYING AND WINDING SUPERVISOR Unavailable Unavailable KIRSCHMAN, L KAITLIN DRYING AND WINDING SUPERVISOR Unavailable Unavailable KIRSCHMAN, L KAITLIN DRYING AND WINDING SUPERVISOR Unavailable Unavailable KIRSCHMAN, L KAITLIN DRYING AND WINDING SUPERVISOR Unavailable Unavailable KIRSCHMAN, L KAITLIN DRYING AND WINDING SUPERVISOR Unavailable Unavailable KIRSCHMAN, L KAITLIN DRYING AND WINDING SUPERVISOR Unavailable Unavailable KIRSCHMAN, L KAITLIN DRYING AND WINDING SUPERVISOR Unavailable Unavailable KIRSCHMAN, L KAITLIN DRYING AND WINDING SUPERVISOR Unavailable Unavailable KIRSCHMAN, L KAITLIN DRYING AND WINDING SUPERVISOR Unavailable Unavailable KIRSCHMAN, L KAITLIN DRYING AND WINDING SUPERVISOR Unavailable Unavailable KIRSCHMAN, L KAITLIN DRYING AND WINDING SUPERVISOR Unavailable Unavailable KIRSCHMAN, L KAITLIN DRYING AND WINDING SUPERVISOR Unavailable Unavailable KIRSCHMAN, L KAITLIN DRYING AND WINDING SUPERVISOR Unavailable Unavailable KIRSCHMAN, L AKITLIN DRYING AND WINDING SUPERVISOR Unavailable Unavailable KIRSCHMAN, L KAITLIN DRYING AND WINDING SUPERVISOR Unavailable Unavailable TONTARSKI, G VIJAY PA Unavailable Unavailable TONTARSKI, G VIJAY PA Unavailable Unavailable TONTARSKI, G VIJAY PA Unavailable Unavailable TONTARSKI, G VIJAY PA Unavailable Unavailable TONTARSKI, G VIJAY PA Unavailable Unavailable TONTARSKI, G VIJAY PA Unavailable Unavailable TONTARSKI, G VIJAY PA Unavailable Unavailable TONTARSKI, G VIJAY PA Unavailable Unavailable TONTARSKI, G VIJAY PA Unavailable Unavailable TONTARSKI, G VIJAY PA Unavailable Unavailable TONTARSKI, G VIJAY PA Unavailable Unavailable TONTARSKI, G VIJAY PA Unavailable Unavailable TONTARSKI, G VIJAY PA Unavailable Unavailable TONTARSKI, G VIJAY PA Unavailable Unavailable TONTARSKI, G VIJAY PA Unavailable Unavailable TONTARSKI, G VIJAY PA Unavailable Unavailable TONTARSKI, G VIJAY PA Unavailable Unavailable TONTARSKI, G VIJAY PA Unavailable Unavailable TONTARSKI, G VIJAY PA Unavailable Unavailable TONTARSKI, G VIJAY PA Unavailable Unavailable TONTARSKI, G VIJAY PA Unavailable Unavailable TONTARSKI, G VIJAY PA Unavailable Unavailable TONTARSKI, G VIJAY PA Unavailable Unavailable TONTARSKI, G VIJAY PA Unavailable Unavailable TONTARSKI, G VIJAY PA Unavailable Unavailable TONTARSKI, G VIJAY PA Unavailable Unavailable TONTARSKI, G VIJAY PA Unavailable Unavailable TONTARSKI, G VIJAY PA Unavailable Unavailable TONTARSKI, G VIJAY PA Unavailable Unavailable TONTARSKI, G VIJAY PA Unavailable Unavailable TONTARSKI, G VIJAY PA Unavailable Unavailable TONTARSKI, G VIJAY PA Unavailable Unavailable TONTARSKI, G VIJAY PA Unavailable Unavailable TONTARSKI, G VIJAY PA Unavailable Unavailable TONTARSKI, G VIJAY PA Unavailable Unavailable TONTARSKI, G VIJAY PA Unavailable Unavailable TONTARSKI, G VIJAY PA Unavailable Unavailable TONTARSKI, G VIJAY PA Unavailable Unavailable TONTARSKI, G VIJAY PA Unavailable Unavailable TONTARSKI, G VIJAY PA Unavailable Unavailable TONTARSKI, G VIJAY PA Unavailable Unavailable TONTARSKI, G VIJAY PA Unavailable Unavailable TONTARSKI, G VIJAY PA Unavailable Unavailable TONTARSKI, G VIJAY PA Unavailable Unavailable TONTARSKI, G VIJAY PA Unavailable Unavailable TONTARSKI, G VIJAY PA Unavailable Unavailable TONTARSKI, G VIJAY PA Unavailable Unavailable TONTARSKI, G VIJAY PA Unavailable Unavailable IRVIN BLUE MD Unavailable Unavailable IRVIN BLUE MD Unavailable Unavailable IRVIN BLUE MD Unavailable Unavailable IRVIN BLUE MD Unavailable Unavailable IRVIN BLUE MD Unavailable Unavailable IRVIN BLUE MD Unavailable Unavailable IRVIN BLUE MD Unavailable Unavailable IRVIN BLUE MD Unavailable Unavailable IRVIN BLUE MD Unavailable Unavailable IRVIN BLUE MD Unavailable Unavailable IRVIN BLUE MD Unavailable Unavailable IRVIN BLUE MD Unavailable Unavailable IRVIN BLUE MD Unavailable Unavailable IRVIN BLUE MD Unavailable Unavailable IRVIN BLUE MD Unavailable Unavailable IRVIN BLUE MD Unavailable Unavailable IRVIN BLUE MD Unavailable Unavailable IRVIN BLUE MD Unavailable Unavailable IRVIN BLUE MD Unavailable Unavailable IRVIN BLUE MD Unavailable Unavailable IRVIN BLUE MD Unavailable Unavailable IRVIN BLUE MD Unavailable Unavailable IRVIN BLUE MD Unavailable Unavailable IRVIN BLUE MD Unavailable Unavailable IRVIN BLUE MD Unavailable Unavailable IRVIN BLUE MD Unavailable Unavailable MARKWITHIRVIN MD Unavailable Unavailable MARKWITHIRVIN MD Unavailable Unavailable MARKIRVIN ACEVEDO MD Unavailable Unavailable MARKWITHIRVIN MD Unavailable Unavailable MARKWITHIRVIN MD Unavailable Unavailable MARKIRVIN ACEVEDO MD Unavailable Unavailable MARKIRVIN ACEVEDO MD Unavailable Unavailable ROSA MARIA [id number], E AYDE [id number] Unavailable Unavailab le ROSA MARIA [id number], E AYDE [id number] Unavailable Unavailab le ROSA MARIA [id number], E AYDE [id number] Unavailable Unavailab le Re-disclosure Warning The records that you are about to access may contain information from federally-assisted alcohol or drug abuse programs. If such information is present, then the following federally mandated warning applies: This information has been disclosed to you from records protected by federal confidentiality rules (42 CFR part 2). The federal rules prohibit you from making any further disclosure of this information unless further disclosure is expressly permitted by the written consent of the person to whom it pertains or as otherwise permitted by 42 CFR part 2. A general authorization for the release of medical or other information is NOT sufficient for this purpose. The Federal rules restrict any use of the information to criminally investigate or prosecute any alcohol or drug abuse patient.The records that you are about to access may contain highly sensitive health information, the redisclosure of which is protected by Article 27-F of the [facility] Public Health law. If you continue you may have access to information: Regarding HIV / AIDS; Provided by facilities licensed or operated by the [facility] Office of Mental Health; or Provided by the [facility] Office for People With Developmental Disabilities. If such information is present, then the following [facility] mandated warning applies: This information has been disclosed to you from confidential records which are protected by state law. State law prohibits you from making any further disclosure of this information without the specific written consent of the person to whom it pertains, or as otherwise permitted by law. Any unauthorized further disclosure in violation of state law may result in a fine or correction sentence or both. A general authorization for the release of medical or other information is NOT sufficient authorization for further disc losure. Allergies and Adverse Reactions Type Description Substance Reaction Status Data Source(s ) Drug Class NO KNOWN ALLERGIES NO KNOWN ALLERGIES [facility] Family History Family Member Name Family Member Gender Family Member Status Date o f Status Description Data Source(s) Unknown Male Problem MEDENT ([facility]) Encounters Encounter Providers Location Date Indications Data Source(s ) (PN Proc 60) Pain Procedure 60 [address] [place] [address] 12/13/2020 12:00:00 AM EST eCW1 ([facility]) Unknown [address] [facility], [facility] [address] 12/13/2020 12:00:00 AM EST eCW1 ([facility]) Office Visit Attender: Claudio Armendariz MD Main Office 01:45:00 PM EST MEDENT ([facility] ) Office Visit Attender: VISHNU ESPINOSA MD Main Office 12/05/2020 09: 30:00 AM EST MED[facility] ([facility]) Outpatient Attender: CHRISTIANE PALAFOX MD [facility] 11/28/2020 02:30:00 PM EST MEDENT ([facility]) Office Visit Attender: TONEY BEDOYA MD Main office [facility] 11/27/2020 02:15:00 PM EST MEDENT ([facility]) Unknown [address] [facility] [address] 11/20/2020 12:00:00 AM EST eCW1 ([facility]) Outpatient [address] [facility] [address] 11/17/2020 12:00:00 AM EST eCW1 ([facility]) Outpatient Attender: KAITLIN ATKINS [facility] 01:30:00 PM EST MEDENT (Thai Shay MD) Outpatient Attender: AYDE CRANE [id number] 01/05/2020 08:58:25 PM [facility] Outpatient 11/04/2020 08:05:00 PM EST S troke; right sided facial droop with dyarthria and right tongue deviation. [facility] Stroke; right sided facial droop with dy arthria and right tongue deviation. Outpatient Attender: AYDE CRANE [id number] 11/04/2020 12:00 :00 AM [facility] Outpatient Attender: VIJAY SOTO [facility] 10/26/2020 11:00:00 AM EST MEDENT (Thai Shay MD) Office Visit Attender: TONEY BEDOYA MD Main office - [facility] 10/03/2020 02:30:00 PM EST MEDENT ([facility]) Outpatient Attender: KAITLIN ATKINS [facility] 02:00:00 PM EDT MEDENT (Thai Shay MD) (PN Proc 60) Pain Procedure [address] [place], [place] [id number] 08/15/2020 12:00:00 AM EDT eCW1 ([facility]) Outpatient Attender: TONEY BEDOYA MD Main office - [facility] 08/03/2020 03:30:00 PM EDT MEDENT ([facility]) [facility] [address] [place], MS [id number] 05/03/2020 12:00:00 AM EDT eCW1 ([facility]) Unknown [address] [place] [phone] 05/02/2020 12:00:00 AM EDT eCW1 ([facility]) [facility] [address] [place] [phone] 04/17/2020 12:00:00 AM EDT eCW1 ([facility]) [facility] [address] [place] [phone] 04/04/2020 12:00:00 AM EDT eCW1 ([facility]) Outpatient Attender: IRVIN BLUE MD Physical Therapy 08:30:00 AM EDT MEDENT ([facility]) [facility] [address] [place] [phone] 03/21/2020 12:00:00 AM EDT eCW1 ([facility]) [facility] [address] [place] [phone] 03/07/2020 12:00:00 AM EDT eCW1 ([facility]) [facility] [address] [place] [phone] 02/07/2020 12:00:00 AM EDT eCW1 ([facility]) [facility] [address] [place] [phone] 01/25/2020 12:00:00 AM EDT eCW1 ([facility]) Outpatient Attender: TONEY BEDOYA MD Main office - [facility] 11/29/2019 10:30:00 AM EST MEDENT ([facility]) Medications Medication Brand Name Start Date Product Form Dose Route Admi nistrative Instructions Pharmacy Instructions Status Indications Reaction Description Data Source(s) Sutab Sutab 12/07/2020 12:00:00 AM EST active MEDENT ([facility]) gabapentin 300 MG Oral Capsule Gabapentin 12/04/2020 12:00:00 AM EST ORAL active MEDENT ([facility]) Omeprazole 40 MG Delayed Release Oral Capsule Omeprazole 12/04/2020 12:00:00 AM EST ORAL active MED[facility] ([facility]) Cholecalciferol 1000 UNT Oral Tablet Vitamin D 12/04/2020 12:00:00 A M EST ORAL active MEDENT ([facility]) Multivitamin Adult 12/04/2020 12:00:00 AM EST ORAL active MEDENT ([facility] vilazodone hydrochloride 40 MG Oral Tablet [Viibryd] Viibryd 12/04/2020 12:00:00 AM EST ORAL active MEDENT ([facility]) Aspirin 81 MG Delayed Release Oral Tablet Aspirin 12/04/2020 1 2:00:00 AM EST ORAL active MEDENT ([facility]) Lisinopril 10 MG Oral Tablet Lisinopril 12/04/2020 12:00:00 AM EST ORAL active MEDENT ([facility]) Rosuvastatin calcium 40 MG Oral Tablet [Crestor] Crestor 12/04/2020 12:00:00 AM EST ORAL active MEDENT ([facility]) buspirone hydrochloride 10 MG Oral Tablet Buspirone HCL 12/04/2020 12:00:00 AM EST ORAL active MED[facility] ([facility]) Levofloxacin 500 MG Oral Tablet Levofloxacin 11/25/2020 12:00:00 AM EST completed MEDENT ([facility]) Diclofenac Sodium 0.01 MG/MG Topical Gel Diclofenac Sodium 12/29/2019 12:00:00 AM EST active [facility] ([facility]) Acetaminophen 300 MG / Codeine Phosphate 30 MG Oral Tablet [Tylenol with Codeine] Tylenol With Codeine #3 10/28/2019 12:00:00 AM EST active MEDENT ([facility]) 2 ML Sodium Hyaluronate 10 MG/ML Prefilled Syringe [Euflexxa ] Euflexxa 09/17/2019 12:00:00 AM EST completed MEDENT ([facility]) Morphine Sulfate 15 MG Extended Release Oral Tablet [MS Cont in] MS Contin 09/13/2019 12:00:00 AM EST ORAL completed MEDENT ([facility]) Insurance Providers Payer name Policy type / Coverage type Policy ID Covered libertarian ID Covered libertarian's relationship to schroeder Policy Schroeder Plan Information EMEDNY [id number] SP [id number] MEDICARE [id number] SP [id number] MEDICARE C [id number] S [id number] F92 MEDICAID M [id number] S [id number] MEDICARE [id number] SP [id number] F92 EMEDNY [id number] SP [id number] MEDICARE A [id number] Self [id number] F92 MEDICAID M [id number] Self [id number] [facility] [id number] SP [id number] OTHER WORKERS COMPENSATION [id number] SP [id number] MEDICAID [id number] SP [id number] MEDICAID [id number] SP [id number] Medicare [facility] Medicare Primary [id number] Self [id number] Medicaid [facility] Part B [id number] Self [id number] Medicare [facility] Medicare Primary [id number] Self [id number] [place] [id number] Self [id number] ANSI-Medicaid [id number] ANSI-Medicare Part B [id number] [place] [id number] Self [id number] [place] Primary [id number] Self [id number] MEDICARE PART A -O/P [id number] 18 [id number] MEDICAID-O/P [id number] 18 [id number] MEDICARE A [id number] Self [id number] MEDICAID [id number] S [id number] MEDICARE [id number] S [id number] F92 SELF PAY NONE S NONE ANSI-Medicare Part B [id number] ANSI-Medicaid [id number] ANSI-Medicare Part B [id number] ANSI-Medicaid [id number] ANSI-Medicaid [id number] ANSI-Medicare Part B [id number] ANSI-Medicare Part B [id number] ANSI-Medicaid [id number] [facility] [id number] [facility] [id number] Self [id number] [place] Primary [id number] Self [id number] ANSI-Medicare Part B [id number] ANSI-Medicaid [id number] MEDICARE [id number] A ANSI-Medicare Part B [id number] ANSI-Medicaid [id number] ANSI-Medicaid [id number] ANSI-Medicare Part B [id number] [place] Med[place] Part [place] [id number] Self [id number] Medicare [facility] Medicare Primary [id number] Self [id number] ANSI-Medicaid [id number] ANSI-Medicare Part B [id number] MEDICAID [id number] SP [id number] MEDICARE [id number] SP [id number] A MEDICARE C [id number] S [id number] A Medicaid [facility] S D [id number] SELF [id number] DME Jurisdiction A [facility] C [id number] SELF [id number] Medicare C [id number] SELF [id number] A MEDICARE PART A -O/P [id number] 18 [id number] MEDICAID -O/P EMERGENCY ROOM [id number] Medicaid [place] Medig[place] Part [place] [id number] Self [id number] Medicare [facility] Medicare Primary [id number] Self [id number] MEDICAID UNAVAILABLE UNAVAILA BLE Medicaid [place] Medicaid Self Medicare [facility] Medicare Primary Self [place] Part B Self Medicare [facility] Medicare Primary Self MEDICARE -O/P [id number] 18 [id number] SELF PAY UNAVAILABLE SP UNAVAILA BLE [employer] Self [place] Part B Self Medicare 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 Ostium secundum type atrial septal defect Problem 12/05/2020 12:00:00 AM EST MEDENT ([facility]) [id number] Cerebral artery occlusion Cerebral artery occlusion Pr oblem 12/05/2020 12:00:00 AM EST MEDENT ([facility]) 26321732 Essential hypertension Essential hypertension Problem 12/05/2020 12:00:00 AM EST MEDENT ([facility]) [id number] Pure hypercholesterolemia Pure hypercholesterolemia Pr oblem 12/05/2020 12:00:00 AM EST MEDENT ([facility]) [id number] Morbid obesity Morbid obesity Problem 12/05/2020 12:00: 00 AM EST MEDENT ([facility]) [id number] Dietary management surveillance Dietary manageme nt surveillance Problem 12/05/2020 12:00:00 AM EST MEDENT ([facility] 385011987 Mixed hyperlipidemia Mixed hyperlipidemia Problem 12/05/2020 12:00:00 AM EST MEDENT ([facility]) 18319705 Palpitations Palpitations Problem 12/05/2020 12:00:00 A M EST MEDENT ([facility]) [id number] Edema Edema Problem 12/05/2020 12:00:00 AM ES T MEDENT ([facility]) M46.1 [id number] Sacroiliitis Problem 03/07/2020 12:00:00 AM EDT eCW1 ([facility]) M46.1 [id number] Sacroiliitis Problem 03/07/2020 12:00:00 AM EDT eCW1 ([facility]) Stroke; right sided facial droop with dy arthria and right tongue deviation. Stroke; right sided facial droop with dyarthria and right tongue deviation. Diagnosis 11/04/2020 08:05:00 PM [facility] Surgeries/Procedures Procedure Description Date Indications Data Source(s) NON-INVASIVE PHYSIOLOGIC STUDY EXTREMITY 3 LEVLS 12/15 12:00:00 AM EST MEDENT ([facility] ) TSTG ANS FUNCJ CARDIOVAGAL INNERVAJ PARASYMP 12:00:00 AM EST MEDENT ([facility] ) TESTING AUTONOMIC NERVOUS SYSTEM FUNCTION 12/15/2020 1 2:00:00 AM EST MEDENT ([facility] ) Completion of procedural visit when meets criteria 12/13/2020 12:00:00 AM EST eCW1 ([facility]) Magnetic Resonance Angiogtaphy Head W/O Contrast Material(S) 12/12/2020 12:00:00 AM EST MEDENT ([facility]) Magnetic Resonance Angiogtaphy Head W/O Contrast Material(S) 12/12/2020 12:00:00 AM EST MEDENT ([facility]) Magnetic Resonance Angiography Neck W/O Contrast Materials 12/12/2020 12:00:00 AM EST MEDENT ([facility]) Magnetic Resonance Angiography Neck W/O Contrast Materials 12/12/2020 12:00:00 AM EST MEDENT ([facility]) ECG ROUTINE ECG W/LEAST 12 LDS W/I&R 12/05/2020 12:00: 00 AM EST MEDENT ([facility]) Arterial Pressure Waveform Analysis For Assessment Of Centra l Art 12/05/2020 12:00:00 AM EST MEDENT ([facility]) Needle electromyography, each extremity, with related paraspinal areas, when performed, done with nerve conduction, amplitude and latency/velocity study; complete, five or more muscles studied, innervated by three or more nerves or four or more spinal levels (list separately in addition to the code for primary procedure). 08/14/2020 12:00:00 AM EDT MEDEN T ([facility] ) Needle electromyography, each extremity, with related paraspinal areas, when performed, done with nerve conduction, amplitude and latency/velocity study; complete, five or more muscles studied, innervated by three or more nerves or four or more spinal levels (list separately in addition to the code for primary procedure). 08/14/2020 12:00:00 AM EDT MEDEN T ([facility] ) Nerve Conduction 11-12 Studies 08/14/2020 12:00:00 AM EDT MEDENT ([facility] ) Needle electromyography, each extremity, with related paraspinal areas, when performed, done with nerve conduction, amplitude and latency/velocity study; complete, five or more muscles studied, innervated by three or more nerves or four or more spinal levels (list separately in addition to the code for primary procedure). 08/07/2020 12:00:00 AM EDT MEDEN T ([facility] ) Needle electromyography, each extremity, with related paraspinal areas, when performed, done with nerve conduction, amplitude and latency/velocity study; complete, five or more muscles studied, innervated by three or more nerves or four or more spinal levels (list separately in addition to the code for primary procedure). 08/07/2020 12:00:00 AM EDT MEDEN T ([facility]) [address] Nerve conduction studies 7-8 studies NEW 201208/07/2020 12:00:00 AM EDT MEDENT ([facility]) ESTABILISHED PATIENT [facility] FACILITY CHARGE 020 12:00:00 AM EDT eCW1 ([facility]) INJECT SACROILIAC JOINT 03/21/2020 12:00:00 AM EDT eCW1 ([facility]) PHYSICIAN TELEPHONE EVALUATION 11-20 MIN 02/07/2020 12 :00:00 AM EDT eCW1 ([facility]) Polysomnography Sleep Staging 4+ Parameters W/Cpap 01/17/2020 12:00:00 AM EDT MEDENT ([facility] ) Results ID Date Data Source [id number] 12/15/2020 09:30:00 AM EST [facility] Name Value Range Interpretation Code Description Data Rona rce(s) Supporting Document(s) SARS coronavirus 2 RNA Not Detected [facility] [place] This lab was ordered by [facility] and reported by [facility]. ID Date Data Source [id number] 12/08/2020 10:00:00 AM EST [facility] Name Value Range Interpretation Code Description Data Rona rce(s) Supporting Document(s) SARS coronavirus 2 RNA Not Detected [facility] [place] This lab was ordered by [facility] and reported by [facility]. ID Date Data Source [id number] 11/06/2020 11:01:00 AM EST MEDENT ([facility]) Name Value Range Interpretation Code Description Data Rona rce(s) Supporting Document(s) Calcium [Mass/volume] in Serum or Plasma 8.6 MED[facility] ([facility]) Sodium 144 MED[facility] ([facility]) Carbon dioxide, total [Moles/volume] in Serum or Plasma 28 [facility] ([facility]) Chloride [Moles/volume] in Serum or Plasma 109 [facility] ([facility]) Potassium [Moles/volume] in Serum or Plasma 3.9 MEDENT ([facility]) Blood Urea Nitrogen 13 5-21 MED[facility] ([facility]) Creatinine 0.67 0.6-1.5 MED[facility] ([facility]) Glucose 100 70-100 MED[facility] ([facility]) Glomerular filtration rate/1.73 sq M.pre dicted [Volume Rate/Area] in Serum or Plasma by Creatinine-based formula (MDRD) 60.0 MEDENT ([facility]) ID Date Data Source [id number] 11/06/2020 11:01:00 AM EST MEDENT ([facility]) Name Value Range Interpretation Code Description Data Rona rce(s) Supporting Document(s) Red Blood Count 4.13 4.70-6.20 MED[facility] ([facility]) Platelets 219 130-400 MED[facility] ([facility]) White Blood Count 6.0 4.3-10.9 MED[facility] ([facility]) Hemoglobin 11.5 13.0-17.0 MED[facility] ([facility]) Hematocrit 36.7 39.0-50.0 MEDENT ([facility]) ID Date Data Source [id number] 11/04/2020 08:58:25 PM [facility] Name Value Range Interpretation Code Description Data Rona rce(s) Supporting Document(s) Progress Note [facility] FCYHHd5kMzBNHdGz08/YAPkdQRBjo3CfHZukIRe1TQdaYXKuZ9FhQTT8pA4oCBM2QXwVXtQiXlBdItV7 lbm [file] ICAgICAgICAgICAgICAgICAgICAgICAgICAgICAgIC AgICAgICAgICAgICAgICAgICAgICAgICAgICAgICAgICAgICAgICAgICAgICAgICAgICAgICAgICAgIC AgDQogICAgICAgICAgICAgICAgICAgICAgICAgICAgICAgICAgICAgICAgICAgICAgICAgICAgICAgIC AgICAgICAgICAgICAgICAgICAgICAgICAgICAgICAg ICAgICAgICAgICAgDQogICAgICAgICAgICAgICAgICAgICAgICAgICAgICAgICAgICAgICAgICAgICAg ICAgICAgICAgICAgICAgICAgICAgICAgICAgICAgICAgICAgICAgICAgICAgICAgICAgICAgDQogICAg ICAgICAgICAgICAgICAgICAgICAgICAgICAgICAgIC AgICAgICAgICAgICAgICAgICAgICAgICAgICAgICAgICAgICAgICAgICAgICAgICAgICAgICAgICAgIC AgICAgDQogICAgICAgICAgICAgICAgICAgICAgICAgICAgICAgICAgICAgICAgICAgICAgICAgICAgIC AgICAgICAgICAgICAgICAgICAgICAgICAgICAgICAg ICAgICAgICAgICAgICAgDQogICAgICAgICAgICAgICAgICAgICAgICAgICAgICAgICAgICAgICAgICAg ICAgICAgICAgICAgICAgICAgICAgICAgICAgICAgICAgICAgICAgICAgICAgICAgICAgICAgICAgDQog ICAgICAgICAgICAgICAgICAgICAgICAgICAgICAgIC AgICAgICAgICAgICAgICAgICAgICAgICAgICAgICAgICAgICAgICAgICAgICAgICAgICAgICAgICAgIC AgICAgICAgDQogICAgICAgICAgICAgICAgICAgICAgICAgICAgICAgICAgICAgICAgICAgICAgICAgIC AgICAgICAgICAgICAgICAgICAgICAgICAgICAgICAg ICAgICAgICAgICAgICAgICAgDQogICAgICAgICAgICAgICAgICAgICAgICAgICAgICAgICAgICAgICAg ICAgICAgICAgICAgICAgICAgICAgICAgICAgICAgICAgICAgICAgICAgICAgICAgICAgICAgICAgICAg DQogICAgICAgICAgICAgICAgICAgICAgICAgICAgIC AgICAgICAgICAgICAgICAgICAgICAgICAgICAgICAgICAgICAgICAgICAgICAgICAgICAgICAgICAgIC KfAXGzXCBbNSGnPPh3Z5etBQVmQOOjYL0eHEa7Tm3+OBzWRkQbYVX9ytLetB5XEQ0hb0AiIDydDOWrx2 GrEQz8BQ0LXSKzXVdgVM0HUWnjir9YPJAwSMVnpPJC z2hpGaXrEYU9HXGmWrodUD6ENTQxE0pdtdErFYQaODKFWFvmKWKYTOmtXLSYBVKoMRUoUyXaANaiMS6A i1RxySI4OYj+Cm6RJT4bw1JjFSqhEBFfRB0ygc3XXWcMOyJfO8ZeayD2LVI0FZPoGs2MJDPaQRAiqYCj FTHnQDBYQlGkD2KutV10GWNCKy5+DQplbmRvYmoNCj C3GQXxl3AiAEa4TK4TWHMiZVu2sLKdTUBkY8Cut3QlNj87AERvOzkwIJUpgCRlDJVcWPCbr3CfMYTOPo KRSQLycNAyBj2gYe5nTYAyTEC5FtB2XNNOXL9RBRTxAVQuiYJlKRHnZPQHGI6RJDveKLS9CDSdhwByfO NaNAkbDW8BVDHemqTyEdvpZYSZXTj+Ax5HKM0wv0Sx REgoFNGbQF4zde2JUOaWMgGyH7O7iJRvT5S6MUzrWy3JMLDsUUGgCkUaXHHBSQomZB9YEP9rbyN0JB2F hJOaEYGoNVGnnVLnQWe9D72lhHPkOBljDK4ERAZ+Raulito+Oc6XKRUxYBItSPCyLxHwQICTCnWzW2KtB8BO r7AgF2UlQW48pEknyiTeQTbsWD8BNR6xRUIfUWKNHA 2QkVLflN6glgFkRJTqJUGDOgSbD48qnZFpTUIeFWU4URYeAj2DUDBcR9TjgdYawQebldRhGUMaPXBXHY 4JUBkfgfXyzKLbzWmbWH05uJqhAY5MQt6JDqUwNT5eke6WjTOoVn9IAOBaMZ2EMLVpDSRjSCIzOPT7HP BjWbTwSUabZPUfAUZdYGV2MMTaAMEqOH2ULaQoCUFn MaZ3YWBdZLYePWWsnk4HFLPnEDSsSTK7IDRdZSFwVYPdMGhvNMHdVDZaLLP9TXVwFSJhHX5XYyGrDMWl GVI0ZOYuVOPlRJCnxl9NSIMmYFUbCtb6JsLtXGHfKHJuGDfbOJVqKRX5EyW9ERFlIJGmMA5ANmVaGHQp ZQa3DgZjRNVmTHKofu9BFAEnHPYcNfR0LoPkUTSvVW ElJOjtUMOiWIJxJfJ1QWMyYZWxMY0WEiKrTUEeZJBqSSAaLBJhFQIspl3PBRYxHLUxVlFiJuXfBLCjGJ IvMNkiKKKjVVJ5PPp0ILJzMRAqAM6FSxZuXWJpGCR0ZkHuUWPtUUYckj9AAMAeFBAjSXm0XeJkTTWzRF UmTJgfDHEtIMM8BQP5FBAgMJQcWA2RIiIsOZWoFAKf YRtmPZVcQDFtze2JREUrZFZjHrUsYoBoZCAxEHCxQAspUTHeDXVjIQR6MFLaZJDbSB3ELcOmACWwDdMb DdUyFRVjZJJdlf5VIQZuNDTqKIOmURPyDXErRGBsXWagHIAsWUY9FIPfYDNzEGWnIP1AHcYwHFDbBaVr RZmjZMXkLUFdqo6WHCFlVTFxCxElEkGaCJNjQRLcKC nkNYHoTEW9MgLcCIBvKOWlCC0SYeGuCDHiNiReBBEoKFCaBGLygf8RBQAbKNKiQolvZJDyHZZsHABoBK iqTFQyFKN4CnS3BURoEMAlVK1NTaDhLXBwJovwJuroNLGwIHPddu5VDLNoUXLbBBZ3CcLmVVHgDGIrMM r1mwVqtYLoBAd3VI8QD3HmtdMfJkQZSr1Ik724DDYr ZFTgNg7BL1npHg4eZGSiTPHGYy6BSTb8ZJpkAwQ8IBNuMlY2QNShFYKlHPLxJVX7FpX0GAW4EsQ+IDxl UtE2RTp4LHQcHEs2RTR8NoRzJqQmDDI4VbUxMWenLf9mPDJZZm1+ATuxmSWixQekKDFJWdU3QvV2WZym FEDRMi5Y ID Date Data Source [id number] 11/04/2020 08:33:00 PM EST [facility] Name Value Range Interpretation Code Description Data Rona rce(s) Supporting Document(s) SARS coronavirus 2 RNA [Presence] in Res piratory specimen by VIKAS with probe detection [facility] This lab was ordered by [facility] a nd reported by [facility]. ID Date Data Source [id number] 10/26/2020 12:00:00 AM EST [facility] Name Value Range Interpretation Code Description Data Rona rce(s) Supporting Document(s) SARS-CoV2 Rapid Antigen [facility] This lab was ordered by [facility] and reported by Thai Shay MD. ID Date Data Source [id number] 08/14/2020 10:54:00 AM EDT [facility] Name Value Range Interpretation Code Description Data Rona rce(s) Supporting Document(s) Cholesterol 195 [facility]ENT ([facility]) Triglycerides 184 [facility] ([facility]) HDL 62 [facility] Cholesterol in LDL [Mass/volume] in Serum or Plasma by calculation 95 [facility] ([facility]) Chol/HDL Ratio 3.145 [facility] ([facility]) ID Date Data Source [id number] 08/14/2020 10:54:00 AM EDT MEDENT ([facility]) Name Value Range Interpretation Code Description Data Rona rce(s) Supporting Document(s) Alanine aminotransferase [Enzymatic activity/volume] in Serum or Pl asma 28 MEDENT ([facility]) Albumin [Mass/volume] in Serum or Plasma 4.0 [facility] ([facility]) Calcium [Mass/volume] in Serum or Plasma 9.2 [facility] ([facility]) Chloride [Moles/volume] in Serum or Plasma 111 [facility] ([facility]) Carbon dioxide, total [Moles/volume] in Serum or Plasma 29 [facility] ([facility]) Alkaline phosphatase [Enzymatic activity/volume] in Serum or Plasma 1 40 [facility] ([facility]) Potassium [Moles/volume] in Serum or Plasma 4.5 [facility] ([facility]) Protein [Mass/volume] in Serum or Plasma 7.0 [facility] ([facility] [place]) Aspartate aminotransferase [Enzymatic activity/volume] in Serum or Plasma 15 [facility] ([facility] [place] Urea nitrogen [Mass/volume] in Serum or Plasma 13 [facility] ([facility] [place] Sodium 144 [facility] ([facility] [place]ucose 105 83-110 [facility] ([facility] [place]) Creatinine For GFR 0.72 [facility] ([facility] [place]) ID Date Data Source [id number] 08/14/2020 10:54:00 AM EDT [facility] ([facility] [place]) Name Value Range Interpretation Code Description Data Rona rce(s) Supporting Document(s) White Blood Count 5.6 5.0-10.0 [facility] ([facility] [place]) Red Blood Count 4.30 4.00-5.40 [facility] ([facility] [place]) Platelets 218 172-450 MED[facility] ([facility]) Hemoglobin 12.1 [facility] ([facility]) Hematocrit 38.3 [facility] ([facility]) ID Date Data Source [id number] 08/10/2020 10:00:00 AM EDT [facility] Name Value Range Interpretation Code Description Data Rona rce(s) Supporting Document(s) SARS coronavirus 2 RNA [facility] This lab was ordered by [facility] and reported by [facility]. ID Date Data Source [id number] 06/23/2020 12:34:00 PM EDT MEDENT (Thai Shay MD) Name Value Range Interpretation Code Description Data Rona rce(s) Supporting Document(s) Ferritin [Mass/volume] in Serum or Plasma 84 ng/mL 8-252 Normal (applies to non- numeric results) MEDENT (Thai Shay MD) Thyrotropin [Units/volume] in Serum or Plasma 2.240 uIU/ML 0. 358-3.740 Normal (applies to non-numeric results) MEDTANESHA (Thai Shay MD) ID Date Data Source [id number] 06/23/2020 12:34:00 PM EDT MEDTANESHA (Thai Shay MD) Name Value Range Interpretation Code Description Data Rona rce(s) Supporting Document(s) Laboratory test finding (navigational concept) 70 ug/dL 5 0-170 Normal (applies to non-numeric results) MEDENT (Thai Shay MD) Laboratory test finding (navigational concept) 414 ug/dL 2 50-450 Normal (applies to non-numeric results) [facility] (Thai Shay MD) Laboratory test finding (navigational concept) 16.9 % 1 3.2-45.0 Normal (applies to non-numeric results) [facility] (Thai Shay MD) ID Date Data Source [id number] 06/23/2020 11:40:00 AM EDT MEDTANESHA (Thai Shay MD) Name Value Range Interpretation Code Description Data Rona rce(s) Supporting Document(s) Laboratory test finding (navigational concept) 6.7 10 4 .0-10.0 Normal (applies to non-numeric results) MEDENT (Thai Shay MD) Laboratory test finding (navigational concept) 40.8 % 3 6.0-47.0 Normal (applies to non-numeric results) [facility] (Thai Shay MD) Laboratory test finding (navigational concept) 13.1 g/dL 1 2.0-15.5 Normal (applies to non-numeric results) [facility] (Thai Shay MD) Laboratory test finding (navigational concept) 4.53 10 4 .00-5.40 Normal (applies to non-numeric results) JUAN ANTONIO (Thai Shay MD) Laboratory test finding (navigational concept) 90.1 fl 8 0.0-96.0 Normal (applies to non-numeric results) MED[facility] (Thai Shay MD) Laboratory test finding (navigational concept) 28.9 pg 2 7.0-33.0 Normal (applies to non-numeric results) [facility] (Thai Shay MD) Laboratory test finding (navigational concept) 13.5 % 1 1.5-14.5 Normal (applies to non-numeric results) MEDENT (Thai Shay MD) Laboratory test finding (navigational concept) 32.1 g/dL 3 2.0-36.5 Normal (applies to non-numeric results) [facility] (Thai Shay MD) Laboratory test finding (navigational concept) 58.9 % 3 6.0-66.0 Normal (applies to non-numeric results) [facility] (Thai Shay MD) Laboratory test finding (navigational concept) 30.4 % 2 4.0-44.0 Normal (applies to non-numeric results) [facility] (Thai Shay MD) Laboratory test finding (navigational concept) 244 10 1 50-450 Normal (applies to non-numeric results) [facility] (Thai Shay MD) Laboratory test finding (navigational concept) 7.6 % 0.0-5.0 Above high normal [facility] (Thai Shay MD) Laboratory test finding (navigational concept) 2.1 % 0 .0-3.0 Normal (applies to non-numeric results) [facility] (Thai Shay MD) Laboratory test finding (navigational concept) 0.6 % 0 .0-1.0 Normal (applies to non-numeric results) [facility] (Thai Shay MD) Laboratory test finding (navigational concept) 0.4 % 0 -3.0 Normal (applies to non-numeric results) MEDENT (Thai Shay MD) Laboratory test finding (navigational concept) 4.0 10 1 .5-8.5 Normal (applies to non-numeric results) AURELIOENT (Thai Shay MD) Laboratory test finding (navigational concept) 0.0 % 0 -0 Normal (applies to non- numeric results) [facility]ENT (Thai Shay MD) Laboratory test finding (navigational concept) 0.5 10 0 .0-0.8 Normal (applies to non-numeric results) [facility] (Thai Shay MD) Laboratory test finding (navigational concept) 0.1 10 0 .0-0.5 Normal (applies to non-numeric results) [facility] (Thai Shay MD) Laboratory test finding (navigational concept) 2.1 10 1 .5-5.0 Normal (applies to non-numeric results) [facility] (Thai Shay MD) Laboratory test finding (navigational concept) 0.0 10 0 .0-0.2 Normal (applies to non-numeric results) MEDTANESHA (Thai Shay MD) ID Date Data Source [id number] 03/18/2020 09:50:00 AM EDT [facility] Name Value Range Interpretation Code Description Data Rona rce(s) Supporting Document(s) SARS CORONAVIRUS 2 RNA [facility] This lab was ordered by [facility] and reported by [facility]. Procedure Social History Code Duration Value Status Description Data Source(s ) Smoking 12/13/2020 12:00:00 AM EST Never Smoker completed Never S moker eCW1 ([facility]) Smoking 12/13/2020 12:00:00 AM EST Never Smoker completed Never S moker eCW1 ([facility]) Smoking 12/05/2020 12:00:00 AM EST Patient has never smoked co mpleted Patient has never smoked [facility] ([facility]) Smoking 11/17/2020 12:00:00 AM EST Never Smoker completed Never S moker eCW1 ([facility]) Smoking 11/17/2020 12:00:00 AM EST Never Smoker completed Never S moker eCW1 ([facility]) Smoking 08/15/2020 12:00:00 AM EDT Never Smoker completed Never S moker eCW1 ([facility]) Smoking 04/04/2020 12:00:00 AM EDT Never Smoker completed Never S moker eCW1 ([facility]) Vital Signs ID Date Data Source UNK Name Value Range Interpretation Code Description Data Source(s) Diastolic blood pressure 81 mm[Hg] 81 mm[Hg] eCW1 ([facility]) Systolic blood pressure 157 mm[Hg] 157 mm[Hg] e CW1 ([facility]) Body temperature 97.9 [degF] 97.9 [degF] eCW1 ( [facility]) Respiratory rate 18 /min 18 /min eCW1 ([facility]) Heart rate 73 /min 73 /min eCW1 ([facility]) Body mass index (BMI) [Ratio] 39.37 kg/m2 39.37 kg/m2 eCW1 ([facility]) Body height 64 [in_i] 64 [in_i] eCW1 ([facility]) Body weight 229.4 [lb_av] 229.4 [lb_av] eCW1 ([facility]) Body temperature 97.7 [degF] 97.7 [degF] MEDENT ([facility]) Body weight 104.328 kg 104.328 kg [facility] ([facility]) Body mass index (BMI) [Ratio] 39.5 kg/m2 39.5 k g/m2 MED[facility] ([facility]) Heart rate 90 /min 90 /min [facility] ([facility]) Diastolic blood pressure 83 mm[Hg] 83 mm[Hg] MEDENT ([facility]) Systolic blood pressure 135 mm[Hg] 135 mm[Hg] M EDENT ([facility]) Body weight 230.00 [lb_av] 230.00 [lb_av] MEDEN T ([facility]) Body height 64 [in_i] 64 [in_i] [facility] ([facility]) 5'4" Diastolic blood pressure--sitting 75 mm[Hg] 75 mm[Hg] [facility] ([facility]) CBP, large cuff/Ra Systolic blood pressure--sitting 135 mm[Hg] 135 mm[Hg] [facility] ([facility]) CBP, large cuff/Ra Heart rate 57 /min 57 /min [facility] ([facility]) Body mass index (BMI) [Ratio] 40.6 kg/m2 40.6 k g/m2 [facility] ([facility]) Body height 63 [in_i] 63 [in_i] [facility] ([facility]) 5'3" Body weight 229.00 [lb_av] 229.00 [lb_av] MEDEN T ([facility]) Body surface area Derived from formula 2.05 m2 2.05 m2 MEDENT ([facility]) Body mass index (BMI) [Ratio] 40.6 kg/m2 40.6 k g/m2 MEDENT ([facility]) Body height 63 [in_i] 63 [in_i] MEDENT ([facility]) 5'3" Body weight 229.00 [lb_av] 229.00 [lb_av] MEDEN T ([facility]) Heart rate 78 /min 78 /min MEDENT ([facility]) Diastolic blood pressure 68 mm[Hg] 68 mm[Hg] MEDENT ([facility]) Systolic blood pressure 110 mm[Hg] 110 mm[Hg] M EDENT ([facility]) Diastolic blood pressure 77 mm[Hg] 77 mm[Hg] eCW1 ([facility]) Systolic blood pressure 123 mm[Hg] 123 mm[Hg] e CW1 ([facility]) Body temperature 96.0 [degF] 96.0 [degF] eCW1 ( [facility]) Respiratory rate 18 /min 18 /min eCW1 ([facility]) Heart rate 75 /min 75 /min eCW1 ([facility]) Body mass index (BMI) [Ratio] 39.54 kg/m2 39.54 kg/m2 W1 ([facility]) Body height 64 [in_i] 64 [in_i] eCW1 ([facility]) Body weight 230.4 [lb_av] 230.4 [lb_av] eCW1 ([facility]) Oxygen saturation in Arterial blood by Pulse oximetry 97 % 97 % MED[facility] (Thai Shay MD) Heart rate 78 /min 78 /min MED[facility] (Thai Shay MD) Diastolic blood pressure 92 mm[Hg] 92 mm[Hg] MED[facility] (Thai Shay MD) Systolic blood pressure 158 mm[Hg] 158 mm[Hg] M EDENT (Thai Shay MD) Body temperature 97.5 [degF] 97.5 [degF] JUAN ANTONIO (Thai Shay MD) Body mass index (BMI) [Ratio] 39.4 kg/m2 39.4 k g/m2 JUAN ANTONIO (Thai Shay MD) Body weight 229.38 [lb_av] 229.38 [lb_av] SUNNI T (Thai Shay MD) Body height 64 [in_i] 64 [in_i] JUAN ANTONIO (Thai Shay MD) 5'4" Diastolic blood pressure 79 mm[Hg] 79 mm[Hg] eCW1 ([facility]) Systolic blood pressure 162 mm[Hg] 162 mm[Hg] e CW1 ([facility]) Body temperature 97.5 [degF] 97.5 [degF] eCW1 ( [facility]) Respiratory rate 18 /min 18 /min eCW1 ([facility]) Heart rate 58 /min 58 /min eCW1 ([facility]) Body mass index (BMI) [Ratio] 39.89 kg/m2 39.89 kg/m2 eCW1 ([facility]) Body height 64 [in_i] 64 [in_i] eCW1 ([facility]) Body weight 232.4 [lb_av] 232.4 [lb_av] eCW1 ([facility]) Diastolic blood pressure 70 mm[Hg] 70 mm[Hg] eCW1 ([facility]) Systolic blood pressure 139 mm[Hg] 139 mm[Hg] e CW1 ([facility]) Body temperature 96.9 [degF] 96.9 [degF] eCW1 ( [facility]) Respiratory rate 19 /min 19 /min eCW1 ([facility]) Heart rate 69 /min 69 /min eCW1 ([facility]) Body mass index (BMI) [Ratio] 41.02 kg/m2 41.02 kg/m2 eCW1 ([facility]) Body height 64 [in_us] 64 [in_us] eCW1 ([facility]) Body weight Measured 239.0 [lb_av] 239.0 [lb_av ] eCW1 ([facility]) Diastolic blood pressure 85 mm[Hg] 85 mm[Hg] eCW1 ([facility]) Systolic blood pressure 138 mm[Hg] 138 mm[Hg] e CW1 ([facility]) Body temperature 97.3 [degF] 97.3 [degF] eCW1 ( [facility]) Respiratory rate 18 /min 18 /min eCW1 ([facility]) Heart rate 88 /min 88 /min eCW1 ([facility]) Body mass index (BMI) [Ratio] 40.75 kg/m2 40.75 kg/m2 eCW1 ([facility]) Body height 64 [in_us] 64 [in_us] eCW1 ([facility]) Body weight Measured 237.4 [lb_av] 237.4 [lb_av ] eCW1 ([facility]) Diastolic blood pressure 87 mm[Hg] 87 mm[Hg] eCW1 ([facility]) Systolic blood pressure 152 mm[Hg] 152 mm[Hg] e CW1 ([facility]) Body temperature 97.7 [degF] 97.7 [degF] eCW1 ( [facility]) Respiratory rate 18 /min 18 /min eCW1 ([facility]) Heart rate 98 /min 98 /min eCW1 ([facility]) Body mass index (BMI) [Ratio] 40.71 kg/m2 40.71 kg/m2 eCW1 ([facility]) Body height 64 [in_us] 64 [in_us] eCW1 ([facility]) Body weight Measured 237.2 [lb_av] 237.2 [lb_av ] eCW1 ([facility]) ID Date Data Source [id number] 11/08/2020 07:51:33 AM [facility] Name Value Range Interpretation Code Description Data Source(s) TRANSFER FROM [facility]
--- OUTSIDE RECORDS SUMMARY | 2020-12-20 10:15 | CCD | Summary of Care ---
Author Author [facility] Organization [facility] Address Unknown Phone Unavailable Care Team Providers Care Manager Bilingual Name Role Phone Korin Lemus BURNISHING MACHINE OPERATOR PCP Encounter Details Care Team Description Date Type Department 11/04/2020 [facility] TRANSFER CE NTER Encounter [address] [place] [address] Allergies No Known Allergiesdocumented as of this encounter (statuses as of 11/19/2020) Medications End Date Status Medication Sig Dispensed Refills Start Date Active rosuvastatin (CRESTOR) 10 Take 10 mg by 0 MG tablet mouth daily. Active busPIRone (BUSPAR) 10 MG Take 10 mg by 0 02/28 tablet mouth Two 8 Times Daily Active ibuprofen (ADVIL,MOTRIN) 0 800 MG tablet 8 Active gabapentin (NEURONTIN) Take 300 mg 0 300 MG capsule by mouth Three times daily Active Vilazodone HCl 40 MG Oral Take by mouth 0 Tablet (VIIBRYD) daily Active Omeprazole 40 MG Oral Take 40 mg by 0 Capsule Delayed Release mouth daily (PRILOSEC) Active oxyCODONE-Acetaminophen Take 1 tablet 0 5-325 MG Oral Tablet by mouth (PERCOCET) every 4 (four) hours as needed for Pain documented as of this encounter (statuses as of 11/19/2020) Active Problems Problem Noted Date Follow-up examination, following unspecified surgery 03/15/2016 S/P reduction mammoplasty 07/13/2015 Macromastia 04/20/2015 Abnormal weight gain 10/25/2014 Goiter Hyperthyroidism documented as of this encounter (statuses as of 11/19/2020) Social History Date Tobacco Use Types Packs/Day Years Used Never Smoker 0 Smokeless Tobacco: Never Used Drinks/Week oz/Week Comments Alcohol Use No Sex Assigned at Date Recorded Not on file documented as of this encounter Last Filed Vital Signs Not on filedocumented in this encounter Plan of Treatment Health Maintenance Due Date Last Done Comments Hepatitis C Screening (B. 1960 [id number]) MMR Vaccines (1 of 1 - 1961 Standard series) DTaP,Tdap,and Td Vaccines 1967 (1 - Tdap) HIV Screening 1973 Cervical Cancer Screening 1981 5 years Breast Cancer Screening 2 2010 years Colon Cancer Screening 10 2010 yrs Influenza Vaccine 08/10/2020 07/10/2020, 09/03/2018 Varicella Vaccines (1 of 10/30/2020 09/04/2020 2 - 2-dose childhood series) Zoster Vaccines (2 of 2) 10/30/2020 09/04/2020 Pneumococcal Vaccine: 65+ 2025 Years (1 of 1 - PPSV23) HIB Vaccines Aged Out No longer eligible based on patient's age to complete this topic Hepatitis A Vaccines Aged Out No longer eligibl e based on patient's age to complete this topic Hepatitis B Vaccines Aged Out No longer eligibl e based on patient's age to complete this topic IPV Vaccines Aged Out No longer eligible based on patient's age to complete this topic Pneumococcal Vaccine: Aged Out No longer eligib le based on patient's age to Pediatrics (0 to 5 Years) complete this topic and At-Risk Patients (6 to 64 Years) documented as of this encounter Results Not on filedocumented in this encounter
--- NOTE | 2020-12-20 11:10 | ROOR ---
Patient Name: Susy Fernandes Procedure Date: 12/20/2020 10:52 AM Date of : 1960 Age: 60 Room: [facility] Gender: Female Note Status: Finalized Procedure: Upper Endoscopy + Biopsies Indications: Heartburn, Failure to respond to medical treatment, Follow-up of Sutton's esophagus Providers: Claudio Armendariz MD Referring MD: KAITLIN ATKINS NP Requesting Provider: Medicines: Monitored Anesthesia Care Complications: No immediate complications. Procedure: Pre-Anesthesia Assessment: - The heart rate, respiratory rate, oxygen saturations, blood pressure, adequacy of pulmonary ventilation, and response to care were monitored throughout the procedure. The Endoscope was introduced through the mouth, and advanced to the second part of duodenum. The upper GI endoscopy was accomplished without difficulty. The patient tolerated the procedure well. Findings: The Z-line was regular and was found 35 cm from the incisors. Multiple biopsies were obtained with cold forceps for evaluation to rule out Sutton's Esophagus randomly at the gastroesophageal junction. A small hiatal hernia was present. Evidence of a gastric bypass was found. A gastric pouch with a small size was found. The gastrojejunal anastomosis was characterized by healthy appearing mucosa. This was traversed. The nljhr-zj-czwkygo limb was characterized by healthy appearing mucosa. The exam was otherwise without abnormality. Impression: - Z-line regular, 35 cm from the incisors. - Small hiatal hernia. - Gastric bypass with a small-sized pouch. Gastrojejunal anastomosis characterized by healthy appearing mucosa. - The examination was otherwise normal. - Multiple biopsies were obtained at the gastroesophageal junction. - The examination was otherwise normal. Recommendation: - Patient has a contact number available for emergencies. The signs and symptoms of potential delayed complications were discussed with the patient. Return to normal activities tomorrow. Written discharge instructions were provided to the patient. - Resume previous diet. - Discharge patient to home. - Follow an antireflux regimen. - Continue present medications. - Await pathology results. - Telephone GI clinic for pathology results in 1 week. - Return to referring physician. - The findings and recommendations were discussed with the patient. Procedure Code(s): --- Professional --- 09202, Esophagogastroduodenoscopy, flexible, transoral; with biopsy, single or multiple Diagnosis Code(s): --- Professional --- K22.70, Sutton's esophagus without dysplasia K44.9, Diaphragmatic hernia without obstruction or gangrene Z98.84, Bariatric surgery status R12, Heartburn CPT copyright 2019 [employer]. All rights reserved. The codes documented in this report are preliminary and upon patcher bowling ball review may be revised to meet current compliance requirements. Claudio Armendariz MD Claudio Armendariz MD 12/20/2020 11:09:48 AM Electronically signed by Claudio Armendariz MD Number of Addenda: 0 Note Initiated On: 12/20/2020 10:52 AM Estimated Blood Loss: Estimated blood loss: none.
--- NOTE | 2020-12-20 11:24 | ROOR ---
Patient Name: Susy Fernandes Procedure Date: 12/20/2020 10:52 AM Date of : 1960 Age: 60 Room: [facility] Gender: Female Note Status: Finalized Procedure: Colonoscopy to Anastomosis Indications: High risk colon cancer surveillance: Personal history of colon cancer Providers: Claudio Armendariz MD Referring MD: KAITLIN ATKINS NP Requesting Provider: Medicines: Monitored Anesthesia Care Complications: No immediate complications. Procedure: Pre-Anesthesia Assessment: - The heart rate, respiratory rate, oxygen saturations, blood pressure, adequacy of pulmonary ventilation, and response to care were monitored throughout the procedure. The Colonoscope was introduced through the anus and advanced to the ileocolonic anastomosis. The colonoscopy was performed without difficulty. The patient tolerated the procedure well. The quality of the bowel preparation was excellent. Findings: The perianal and digital rectal examinations were normal. Non-bleeding internal hemorrhoids were found during retroflexion. The hemorrhoids were small and Grade I (internal hemorrhoids that do not prolapse). There was evidence of a prior end-to-side ileo-colonic anastomosis at the hepatic flexure. This was patent and was characterized by healthy appearing mucosa. The anastomosis was traversed. The exam was otherwise without abnormality. Impression: - Non-bleeding internal hemorrhoids. - Patent end-to-side ileo-colonic anastomosis, characterized by healthy appearing mucosa. - The examination was otherwise normal. - No specimens collected. - The examination was otherwise normal. Recommendation: - Patient has a contact number available for emergencies. The signs and symptoms of potential delayed complications were discussed with the patient. Return to normal activities tomorrow. Written discharge instructions were provided to the patient. - High fiber diet. - Discharge patient to home. - Continue present medications. - Repeat colonoscopy in 2 years for surveillance. - Return to referring physician. - The findings and recommendations were discussed with the patient. Procedure Code(s): --- Professional --- 31368, Colonoscopy, flexible; diagnostic, including collection of specimen(s) by brushing or washing, when performed (separate procedure) Diagnosis Code(s): --- Professional --- Z85.038, Personal history of other malignant neoplasm of large intestine K64.0, First degree hemorrhoids Z98.0, Intestinal bypass and anastomosis status CPT copyright 2019 [employer]. All rights reserved. The codes documented in this report are preliminary and upon portable canteen operator review may be revised to meet current compliance requirements. Claudio Armendariz MD Claudio Armendariz MD 12/20/2020 11:24:00 AM Electronically signed by Claudio Armendariz MD Number of Addenda: 0 Note Initiated On: 12/20/2020 10:52 AM Estimated Blood Loss: Estimated blood loss: none.
[2020-12-20 11:50] VITALS: BP 156/75
[2020-12-22] MEDS ORDERED: CALTCHW5 PO (11:01)
== END 2020-12-20 12:01 | disposition home or self-care (01) ==
LOC: M OPP 10:06
PROVIDERS: ATTEND Internal Medicine Gastroenterology
DX: Z12.11 Encounter for screening for malignant neoplasm of colon (principal); Z85.038 Personal history of other malignant neoplasm of large intestine; R12 Heartburn; K22.70 Barrett's esophagus without dysplasia; K64.0 First degree hemorrhoids; Z98.0 Intestinal bypass and anastomosis status; D13.1 Benign neoplasm of stomach; K44.9 Diaphragmatic hernia without obstruction or gangrene; Z98.84 Bariatric surgery status; E78.5 Hyperlipidemia, unspecified; M19.90 Unspecified osteoarthritis, unspecified site; F41.9 Anxiety disorder, unspecified; F32.9 Major depressive disorder, single episode, unspecified; G62.9 Polyneuropathy, unspecified; G47.30 Sleep apnea, unspecified; Z86.73 Personal history of transient ischemic attack (TIA), and cerebral infarction without residual deficits; Z79.82 Long term (current) use of aspirin; Z79.899 Other long term (current) drug therapy
CPT/HCPCS: 43239; 88305; G0105

== ENCOUNTER → 2020-12-22 | Outpatient (CLI) | payer MEDICARE, MEDICAID ==
[~2020-12-22] MED LIST changes: +CALTCHW5 PO; -LIDOCAINE 2% 100MG/5ML SDV (FOR ANES.) As Ordered ONE; -NS 1,000 ML IV ONE; -propofoL 200 MG/20 ML VIAL As Ordered ONE
== END ==
LOC: M LABSMTC 10:54
PROVIDERS: ATTEND Anesthesiology
DX: Z01.812 Encounter for preprocedural laboratory examination (principal); Z20.822 Contact with and (suspected) exposure to COVID-19

== ENCOUNTER 2020-12-27 12:05 | Day surgery (SDC) | payer MEDICARE, MEDICAID ==
[~2020-12-27] VITALS: Ht 162.6 cm; Wt 103.3 kg
[~2020-12-27 12:05] MED LIST changes: +NS 1,000 ML IV SCH
--- OUTSIDE RECORDS SUMMARY | 2020-12-27 12:12 | CCD | Continuity of Care Document ---
Author Organization Unknown Address Unknown Phone Unavailable Care Team Providers Care Ui Ux Web Developer Name Role Phone KORIN LEMUS NP AUTM [phone] Social History Type Date Description Comments Sex [...] DR Take One Tablet By Mouth Daily [facility] Buspirone HCL 10mg Tablets Take 1 Tablet By Mouth Twice Daily Unknown Vitamin D3 50mcg (1999 Ut) Capsule s 1 by mouth every day 90caps [facility] 000 Multi Vitamin Tablets Take One Tablet By Mouth Daily [facility] 0 000 Calcium 600 600mg Tablets 1 by [...] Date Facility Test Result H/L Range Note Complete Blood Count 12/25/[address] [address] [phone] White Blood Count 8.4 10 Normal 4.0-10.0 Red Blood Count 4.53 10 Normal 4.00-5.40 Hemoglobin 12.9 g/dL Normal 12.0-15.5 Hematocrit 40.3 % Normal 36.0-47.0 Mean Corpuscular Volume 89.0 fl Normal 80.0-96.0 Mean Corpuscular Hemoglobin 28.5 pg Normal 27.0-33.0 Mean Corpuscular HGB Conc 32.0 g/dL Normal 32.0-36.5 Red Cell Distribution Width 13.4 % Normal 11.5-14.5 Platelet Count, Automated 257 10 Normal 150-450 Neutrophils % 62.5 % Normal 36.0-66.0 Lymph % 27.3 % Normal 24.0-44.0 Mills % 7.7 % Normal 0.0-8.0 Eos % 1.4 % Normal 0.0-3.0 Baso % 0.6 % Normal 0.0-1.0 Immature Granulocyte % 0.5 % Normal 0-3.0 Nucleated Red Blood Cell % 0.0 % Normal 0-0 Neutrophils # 5.3 10 Normal 1.5-8.5 Lymph # 2.3 10 Normal 1.5-5.0 Mills # 0.7 10 Normal 0.0-0.8 Eos # 0.1 10 Normal 0.0-0.5 Baso # 0.1 10 Normal 0.0-0.2 Comprehensive Metabolic Profil 12/25/[address] [address] [phone] Glucose, Fasting 94 mg/dL Normal 70-100 Blood Urea Nitrogen 14 mg/dL Normal 7-18 Creatinine For GFR 0.76 mg/dL Normal 0.55-1.30 Glomerular Filtration Rate > 60.0 Normal >45 1 Sodium Level 143 mEq/L Normal 136-145 Potassium Serum 3.8 mEq/L Normal 3.5-5.1 Chloride Level 109 mEq/L High 98-107 Carbon Dioxide Level 27 mEq/L Normal 21-32 Anion Gap 7 mEq/L Low 8-16 Calcium Level 9.3 mg/dL Normal 8.8-10.2 Ast/Sgot 13 U/L Normal 7-37 Alt/SGPT 29 U/L Normal 12-78 Alkaline Phosphatase 118 U/L High 45-117 Bilirubin,Total 0.5 mg/dL Normal 0.2-1.0 Total Protein 7.5 GM/DL Normal 6.4-8.2 Albumin 3.9 GM/DL Normal 3.2-5.2 Albumin/Globulin Ratio 1.1 Low 1.2-2.2 Total Iron Binding Capacit 12/25/2020 [facility] [address] [place] [address] [phone] Iron (Fe) 74 g/dL Normal 50-170 Total Iron Binding Capacity 396 g/dL Normal 250-450 Percent Saturation 18.7 % Normal 13.2-45.0 Laboratory test finding 12/25/2020 [facility] [address] [place] [address] [phone] Thyroid Stimulating Hormone 1.150 uIU/ML Normal 0. 358-3.740 Free T4 0.85 ng/dL Normal 0.76-1.46 Ferritin 79 NG/ML Normal 8-252 1 Units are mL/min/1.73 m2 Chronic Kidney Disease Staging per NKF: Stage I & II GFR >=60 Normal to Mildly Decreased Stage III GFR 30-59 Moderately Decreased Stage IV GFR 15-29 Severely Decreased Stage V GFR <15 Very Little GFR Left ESRD GFR <15 on PERFORMANCE TEST CONSULTANT Encounters Type Date Location Provider Dx Diagnosis Office Visit 11/13/2020 2:30p [facility] Korin Lemus NP I 10 Essential (primary) hypertension Q21.1 Atrial septal defect K21.9 Gastro-esophageal reflux dis ease without esophagitis E78.5 Hyperlipidemia, unspecified I63.9 Cerebral infarction, unspeci fied Office Visit 10/26/2020 12:00p [facility] BERT Villatoro Z03.818 Encntr for obs for susp exps r to oth biolg agents ruled out Office Visit 08/23/2020 2:00p [facility] Korin Lemus NP I 10 Essential (primary) hypertension E78.5 Hyperlipidemia, unspecified K21.9 Gastro-esophageal reflux dis ease without esophagitis Assessments Date Code Description Provider 11/13/2020 I10 Essential (primary) hypertension Korin Lemus NP 11/13/2020 Q21.1 Atrial septal defect Korin porter, MARY 11/13/2020 K21.9 Gastro-esophageal reflux disease without esophagitis Korin Lemus NP 11/13/2020 E78.5 Hyperlipidemia, unspecified Dennis Lemus NP 11/13/2020 I63.9 Cerebrovascular accident Korin arcos NP 10/26/2020 Z03.818 Encounter for observ ation for suspected exposure to other biological agents ruled out BERT Manuel 08/23/2020 I10 Essential (primary) hypertension Korin Lemus NP 08/23/2020 E78.5 Hyperlipidemia, unspecified Dennis Lemus NP 08/23/2020 K21.9 Gastro-esophageal reflux disease without esophagitis Korin Lemus NP Plan of Treatment Future Appointment(s):* 01/10/2021 2:00 pm - Korin Lemus NP at [facility] 11/13/2020 - Korin Lemus NP* I10 Essential (primary) hypertension* Comments:* Bp slighly elevated Increase lisinopril to 20 mg. po daily * Follow up:* f/u bp check in 2 days * Q21.1 Atrial septal defect* Comments:* echo done at [facility] bubble study was positive for detection of right to left atrium defect, suggestive of patent foramen ovale ( differential diagnosis would include atrial septal defect) See full report. * Referral:* No Doctor Selected * Follow up:* Will refer to Dr. Franks [facility] * K21.9 Gastro-esophageal reflux disease without esophagitis* Comments:* Good response with omeprazole, Continue * E78.5 Hyperlipidemia, unspecified* Comments:* continue diet and medication * Follow up:* F/U in 2 months with fasting labs * I63.9 Cerebrovascular accident* Comments:* 11/04/20 had acute punctatae left central sulcus acute CVA. had sudden onset right facial droop, slurred speech and difficulties getting out her words aprox 1 hour before she came to the er for evaluation . sabine eaton did not feel she needed TPA., MRI/MRA was done, neuro consult done. Pateint placed on ASA 81 mg.dily and f/u appoint. Pt. symptoms currently resolved. * Follow up:* Continue f/u with [facility] Referrals Refer to Reason for Referral Status Appt Date Fiona Franks MD Please eval. and treat this 60 yr.old female who recently had a punctate left central sulcus acute infarct. TTE with bubble was done and was positive for detection of the right atrium to the left atrium shunting with a moderate amount of bubbles appearing in the left atrium and left ventricle, suggestive of patent foramen ovale. See attached reports. Thank you. Created [address] [place] [address] [address] [place] [address] [phone] Created Fiona Franks MD Created [address] [place] [address] [address] [place] [address] [phone] Please eval and treat . 60 y ear old woman who recently had a punctate left central sulcus acute infarct. TTE with bubble was done and was positive for detection of right atrium to left atrium shunting with a moderate amount of bubbles appearing in the left atrium and left ventricle, suggestive of patent foramen ovale. See enclosed echo report,discharge summary. Created Created
--- OUTSIDE RECORDS SUMMARY | 2020-12-27 12:13 | CCD | Continuity of Care Document ---
Author Author Susy ARMENDARIZ M.D Organization Unknown Address [address] [place] [address] Phone [phone] Care Team Providers Care Bandoleer Packer Name Role Phone Korin Lemus AUTM Unavailable Chano Fajardo M.D. AUTM [phone] Problems Active Problems Provider Date Gastroesophageal reflux [...] Qnty Indications Ordering Provide r Date Sutab [id number] Tablets as directed 1box Claudio Armendariz M.D. [...] Index) 41.2 kg/m2 Weight 108.864 kg Results Test Acquired Date Facility Test Result H/L Range Note Laboratory test finding 12/20/[address] [address] Pathology Request For Service (SEE NOTE) 1 1 FINAL DIAGNOSIS Below Z line, biopsy: Junctional mucosa with chronic inflammation and reactive changes. No evidence for intestinal metaplasia. 12/21/2020 - 1346 CLINICAL DIAGNOSIS Refractory heartburn, personal history of colon cancer 12/21/2020 - 722 GROSS DIAGNOSIS Received in formalin labeled "below Z-line biopsy" consists of four fragments of jacobsen tissue, 0.4 x 0.4 x 0.2 cm in aggregate. All in one. -SV 12/21/2020 - 722 Signed AVTAR RIVAS MD 12/21/2020 1437 Procedures Description No Information Available Medical Devices Description No Information Available Encounters Type Date Location Provider Dx Diagnosis Office Visit 12/07/2020 2:45p Main Office Claudio Armendariz M.D. C 18.2 Malignant neoplasm of ascending colon R12 Heartburn Assessments Date Code Description Provider 12/07/2020 C18.2 Malignant neoplasm of ascending colon Claudio Armendariz M.D. 12/07/2020 R12 Heartburn Claudio jaquez M.D. Plan of Treatment 12/07/2020 - Claudio Armendariz M.D.* C18.2 Malignant [...]
--- OUTSIDE RECORDS SUMMARY | 2020-12-27 12:13 | CCD | Continuity of Care Document ---
Author Author Susy ARMENDARIZ M.D Organization Unknown Address [address] [place] [address] Phone [phone] Care Team Providers Care Display Director Name Role Phone Korin Lemus AUTM Unavailable Chano Fajardo M.D. AUTM [phone] Problems Active Problems Provider Date Gastroesophageal reflux [...] Qnty Indications Ordering Provide r Date Sutab [id number] Tablets as directed 1box Claudio Armendariz M.D. [...] H/L Range Note Laboratory test finding 12/20/2020 [facility] [address] [place] [address] Pathology Request For Service (SEE NOTE) 1, 2 1 FINAL DIAGNOSIS Below Z line, biopsy: [...] 722 Signed AVTAR RIVAS MD 12/21/2020 1437 2 12/24/20 (FriDec 24) 05:13 PM CLAUDIO ARMENDARIZ Pathology is negative. scope in 2 yrs. Procedures Description No Information Available Medical Devices [...]
--- OUTSIDE RECORDS SUMMARY | 2020-12-27 12:13 | CCD | Continuity of Care Document ---
Author Author Susy ARMENDARIZ M.D Organization Unknown Address [address] [place] [address] Phone [phone] Care Team Providers Care Coal Mine Inspector Name Role Phone Korin Lemus AUTM Unavailable Chano Fajardo M.D. AUTM [phone] Problems Active Problems Provider Date Gastroesophageal reflux [...] Qnty Indications Ordering Provide r Date Sutab [id number] Tablets as directed 1box Claudio Armendariz M.D. [...] H/L Range Note Laboratory test finding 12/20/2020 [facility] [address] [place] [address] Pathology Request For Service (SEE NOTE) 1, 2 1 FINAL DIAGNOSIS Below Z line, biopsy: Junctional mucosa with chronic inflammation and reactive changes. No evidence for intestinal metaplasia. 12/21/2020 - 1346 CLINICAL DIAGNOSIS Refractory heartburn, personal history of colon cancer 12/21/2020722 GROSS DIAGNOSIS Received in formalin labeled "below Z-line biopsy" consists of four fragments of jacobsen tissue, 0.4 x 0.4 x 0.2 cm in aggregate. All in one. -SV 12/21/2020722 Signed AVTAR RIVAS MD 12/21/2020 1437 2 12/24/20 (FriDec 24) 05:13 PM CLAUDIO ARMENDARIZ Pathology is negative. scope in 2 yrs. Procedures Date Code Description Status 12/20/2020 63111 Colonoscopy Flexible Diagnostic Completed 12/20/2020 05454 Endoscopy Upper GI Biopsy Comple [employer] Description No Information Available Encounters Type Date Location Provider Dx Diagnosis Office Visit 12/07/2020 2:45p Main Office Claudio Armendariz M.D. C 18.2 Malignant neoplasm of ascending colon R12 Heartburn Assessments Date Code Description Provider 12/20/2020 Z85.038 Personal history of other malignant neoplasm of large intestine Claudio Armendariz M.D. 12/20/2020 K64.0 First degree hemorrhoids Claudio Armendariz M.D. 12/20/2020 K63.89 Other specified diseases of inte shantel Claudio Armendariz M.D. 12/20/2020 R12 Heartburn Claudio jaquez M.D. 12/20/2020 K31.89 Other diseases of stomach and du odenum Claudio Armendariz M.D. 12/20/2020 K44.9 Diaphragmatic hernia without obs truction or gangrene Claudio Armendariz M.D. 12/20/2020 Z98.84 Bariatric surgery status Claudio Armendariz M.D. 12/07/2020 C18.2 Malignant neoplasm of ascending colon [...]
--- OUTSIDE RECORDS SUMMARY | 2020-12-27 12:13 | CCD | Continuity of Care Document ---
Author Author Ignacio/Susy KAYE Organization Unknown Address [address] [place] [address] Phone [phone] Care Team Providers Care Stone Polisher Machine Name Role Phone [facility] [phone] Problems Active Problems Provider Date Low back [...] lb BMI (Body Mass Index) 41.1 kg/m2 [place] Body Weight 110 lb Results Description No Information Available Procedures Date Code Description Status 12/15/2020 70190 Sympathetic Skin Responses Compl eted 12/15/2020 39136 Sympathetic Skin Responses Compl eted 12/15/2020 55498 Test Autonomic Nervous System, C ardiovagal Innervation Completed 12/15/2020 25653 Test Autonomic Nervous System, C ardiovagal Innervation Completed 12/15/2020 42133 Artery Study Extremity Traciet Edwarde ls Bilateral Completed 12/12/2020 12009 Magnetic Resonance Angiography N andrés W/O Contrast Materials Completed 12/12/2020 77650 Magnetic Resonance Angiography N andrés W/O Contrast Materials Completed 12/12/2020 79381 Magnetic Resonance Angiogtaphy H ead W/O Contrast Material(S) Completed 12/12/2020 07864 Magnetic Resonance Angiogtaphy H ead W/O Contrast Material(S) Completed 08/14/2020 35107 Nerve Conduction 11-12 Studies C ompleted 08/14/2020 41447 Needle Electromyography Complete , Five Or More Muscles Studied Completed 08/14/2020 68424 Needle Electromyography Complete , Five Or More Muscles Studied Completed 08/07/2020 67567 Nerve Conduction 7-8 Studies Com pleted 08/07/2020 58482 Needle Electromyography Complete , Five Or More Muscles Studied Completed 08/07/2020 89388 Needle Electromyography Complete , Five Or More Muscles Studied Completed Medical Devices Description No Information Available Encounters Type Date Location Provider Dx Diagnosis Office Visit 11/27/2020 3:15p Main office - Stratforderin Persaud M.D. G47.51 Confusional arousals I67.89 Other cerebrovascular diseas e G47.00 Insomnia, unspecified G60.9 Hereditary and idiopathic ne uropathy, unspecified G25.89 Other specified extrapyramid al and movement disorders G47.30 Sleep apnea, unspecified M62.9 Disorder of muscle, unspecif ied R47.01 Aphasia Office Visit 10/03/2020 3:30p Main office - Stratforderin Persaud M.D. 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 M47.892 Other spondylosis, cervical region M51.36 Other intervertebral disc de generation, lumbar region M54.5 Low back pain S09.8xxA Other specified injuries of head, initial encounter M54.2 Cervicalgia R20.2 Paresthesia of skin G47.30 Sleep apnea, unspecified M62.9 Disorder of muscle, unspecif ied Assessments Date Code Description Provider 12/15/2020 G60.8 Other hereditary and idiopathic neuropathies Betty Persaud M.D. 12/15/2020 G60.8 Other hereditary and idiopathic neuropathies Ans/VS 12/15/2020 I70.223 Atherosclerosis of n ative arteries of extremities with rest pain, bilateral legs Ans/VS 12/15/2020 G45.8 Other transient cere bral ischemic attacks and related syndromes Ans/VS 12/12/2020 G47.31 Primary central sleep apnea Chrissyu claire Persaud M.D. 12/12/2020 G47.31 Primary central sleep apnea MRI 12/12/2020 I67.89 Other cerebrovascular disease Ab rubin Persaud M.D. 12/12/2020 I67.89 Other cerebrovascular disease MR I 11/27/2020 G47.51 Confusional arousals Betty pappas M.D. 11/27/2020 I67.89 Other cerebrovascular disease Oliveros akiko Persaud M.D. 11/27/2020 G47.00 Insomnia, unspecified Gladys SinghDAbena 11/27/2020 G60.9 Hereditary and idiopathic neurop athy, unspecified Bettyus Hung M.D. 11/27/2020 G25.89 Other specified extrapyramidal a nd movement disorders Gladys WeinerDAbena 11/27/2020 G47.30 Sleep apnea, unspecified Betty Gladys PersaudDAbena 11/27/2020 M62.9 Disorder of muscle, unspecified Betty Hung, GladysDAbena 11/27/2020 R47.01 Aphasia Gladys Weiner DAbena 10/03/2020 M51.36 Other intervertebral disc degene ration, lumbar region Betty Persaud M.D. 10/03/2020 G60.9 Hereditary and idiopathic neurop athy, unspecified Betty Hung, M.DAbena 10/03/2020 G25.81 Restless legs syndrome Betty Koroma M.D. 10/03/2020 G47.30 Sleep apnea, unspecified Betty Gladys PersaudDAbena 08/14/2020 M54.89 Other dorsalgia Gladys LackeyDAbena 08/14/2020 R20.2 Paresthesia of skin Mike Hendricks, M.DAbena 08/07/2020 M79.601 Pain in right arm Mike Hendricks M. DAbena 08/07/2020 R20.2 Paresthesia of skin Mike Hendricks, [...] 9:15 am - Betty Persaud M.D. at [facility] * 01/29/2021 3:30 pm - Betty Persaud M.D. at [facility] Functional Status Description No Information Available Mental Status Description No Information Available Referrals Refer to Reason for Referral Status Appt Date Created
--- OUTSIDE RECORDS SUMMARY | 2020-12-27 12:14 | CCD ---
Author Author [facility] Organization [facility] Address Unknown Phone Unavailable Support Name Relationship Address Phone IMCHELLE BARROW Next Of Kin [address] [facility] [address] [place] [address] MORAIMA BARROW Next Of Kin [address] [facility] [address] [place] [address] [employer] Next [place] [address] [place] [address] CITLALI BARROW Next Of Kin [address] [facility] [address] [place] [address] [employer] Next Of Kin [address] [place] [address] [facility] Next Of Kin [address] [place] [address] ROMI VASQUEZ Next Of Kin [address] [facility] [place] [address] [facility] [place] [address] LAURA WILSON Next Of Kin [address] [place] [address] REZA SPARKS Next Of Kin [address] [place] [address] DISABLED Next Of Kin Unknown Unavailable RONNELL DIA Next Of Kin [address] [facility] [address] [place] [address] AAFES Next Of [place] [id number] [place] [address] FERNIE HARRIS Next Of Kin [address] [place] [address] FERNIE HARRIS Next Of Kin [address] [place] [address] Aniket Dia ECON [address] [place] [address] [phone] Ronnell Dia ECON [address] [place] [address] Unavailable Ronnell Dia ECON [address] [facility] [place] [address] Care Team Providers Care Metal Furrer Name Role Phone Mariana Armendariz MD Unavailable [...] Unavailable Unavailable Mariana Armendariz MD Unavailable Unavailable Marcello, Mariana Snyder MD Unavailable Unavailable Marcello, Mariana Snyder MD Unavailable Unavailable Marcello, Mariana Snyder MD Unavailable Unavailable Marcello, Mariana Snyder MD Unavailable Unavailable ANTECOL, Maribell MARES MD [...] ANTECOL, Maribell MARES MD Unavailable Unavailable ANTECOL, aMribell MARES MD Unavailable Unavailable AURELIANO, TONEY THOMASON [...] PALAFOX MD Unavailable Unavailable KIRSCHMAN, L KAITLIN CLOTHING EXAMINER Unavailable Unavailable KIRSCHMAN, L KAITLIN CLOTHING EXAMINER Unavailable Unavailable KIRSCHMAN, L KAITLIN CLOTHING EXAMINER Unavailable Unavailable KIRSCHMAN, L KAITLIN CLOTHING EXAMINER Unavailable Unavailable KIRSCHMAN, L KAITLIN CLOTHING EXAMINER Unavailable Unavailable KIRSCHMAN, L KAITLIN CLOTHING EXAMINER Unavailable Unavailable KIRSCHMAN, L KAITLIN CLOTHING EXAMINER Unavailable Unavailable KIRSCHMAN, L KAITLIN CLOTHING EXAMINER Unavailable Unavailable KIRSCHMAN, L KAITLIN CLOTHING EXAMINER Unavailable Unavailable KIRSCHMAN, L KAITLIN CLOTHING EXAMINER Unavailable Unavailable KIRSCHMAN, L KAITLIN CLOTHING EXAMINER Unavailable Unavailable KIRSCHMAN, L KAITLIN CLOTHING EXAMINER Unavailable Unavailable KIRSCHMAN, L KAITLIN CLOTHING EXAMINER Unavailable Unavailable KIRSCHMAN, L KAITLIN CLOTHING EXAMINER Unavailable Unavailable KIRSCHMAN, L KAITLIN CLOTHING EXAMINER Unavailable Unavailable KIRSCHMAN, L KAITLIN CLOTHING EXAMINER Unavailable Unavailable KIRSCHMAN, L KAITLIN CLOTHING EXAMINER Unavailable Unavailable KIRSCHMAN, L KAITLIN CLOTHING EXAMINER Unavailable Unavailable KIRSCHMAN, L KAITLIN CLOTHING EXAMINER Unavailable Unavailable KIRSCHMAN, L KAITLIN CLOTHING EXAMINER Unavailable Unavailable KIRSCHMAN, L KAITLIN CLOTHING EXAMINER Unavailable Unavailable KIRSCHMAN, L KAITLIN CLOTHING EXAMINER Unavailable Unavailable KIRSCHMAN, L KAITLIN CLOTHING EXAMINER Unavailable Unavailable KIRSCHMAN, L KAITLIN CLOTHING EXAMINER Unavailable Unavailable KIRSCHMAN, L KAITLIN CLOTHING EXAMINER Unavailable Unavailable KIRSCHMAN, L KAITLIN CLOTHING EXAMINER Unavailable Unavailable KIRSCHMAN, L KAITLIN CLOTHING EXAMINER Unavailable Unavailable KIRSCHMAN, L KAITLIN CLOTHING EXAMINER Unavailable Unavailable KIRSCHMAN, L KAITLIN CLOTHING EXAMINER Unavailable Unavailable KIRSCHMAN, L KAITLIN CLOTHING EXAMINER Unavailable Unavailable KIRSCHMAN, L KAITLIN CLOTHING EXAMINER Unavailable Unavailable KIRSCHMAN, L KAITLIN CLOTHING EXAMINER Unavailable Unavailable KIRSCHMAN, L KAITLIN CLOTHING EXAMINER Unavailable Unavailable KIRSCHMAN, L KAITLIN CLOTHING EXAMINER Unavailable Unavailable KIRSCHMAN, L KAITLIN CLOTHING EXAMINER Unavailable Unavailable KIRSCHMAN, L KAITLIN CLOTHING EXAMINER Unavailable Unavailable KIRSCHMAN, L KAITLIN CLOTHING EXAMINER Unavailable Unavailable KIRSCHMAN, L KAITLIN CLOTHING EXAMINER Unavailable Unavailable KIRSCHMAN, L KAITLIN CLOTHING EXAMINER Unavailable Unavailable KIRSCHMAN, L KAITLIN CLOTHING EXAMINER Unavailable Unavailable KIRSCHMAN, L KAITLIN CLOTHING EXAMINER Unavailable Unavailable KIRSCHMAN, L KAITLIN CLOTHING EXAMINER Unavailable Unavailable KIRSCHMAN, L KAITLIN CLOTHING EXAMINER Unavailable Unavailable KIRSCHMAN, L KAITLIN CLOTHING EXAMINER Unavailable Unavailable KIRSCHMAN, L KAITLIN CLOTHING EXAMINER Unavailable Unavailable KIRSCHMAN, L KAITLIN CLOTHING EXAMINER Unavailable Unavailable KIRSCHMAN, L KAITLIN CLOTHING EXAMINER Unavailable Unavailable KIRSCHMAN, L KAITLIN CLOTHING EXAMINER Unavailable Unavailable KIRSCHMAN, L KAITLIN CLOTHING EXAMINER Unavailable Unavailable KIRSCHMAN, L KAITLIN CLOTHING EXAMINER Unavailable Unavailable KIRSCHMAN, L KAITLIN CLOTHING EXAMINER Unavailable Unavailable TONTARSKI, G VIJAY PA Unavailable [...] Unavailable Unavailable IRVIN BLUE MD Unavailable Unavailable MARKWITH, IRVIN THOMASON Unavailable Unavailable MARKWITH, IRVIN THOMASON Unavailable Unavailable MARKWITH, IRVIN THOMASON Unavailable Unavailable MARKWITH, IRVIN THOMASON Unavailable Unavailable MARKWITH, IRVIN THOMASON Unavailable Unavailable MARKWITH, IRVIN THOMASON Unavailable Unavailable MARKWITH, IRVIN THOMASON Unavailable Unavailable MARKWITH, IRVIN THOMASON Unavailable Unavailable MARKWITH, IRVIN THOMASON Unavailable Unavailable MARKWITH, IRVIN THOMASON Unavailable Unavailable MARKWITH, IRVIN THOMASON Unavailable Unavailable MARKWITH, IRVIN THOMASON Unavailable Unavailable MARKWITH, IRVIN THOMASON Unavailable Unavailable ROSA MARIA [id number], E AYDE [id number] Unavailable Unavailab le ROSA MARIA 926889, E AYDE 345906 Unavailable Unavailab le ROSA MARIA 216045, E AYDE 438192 Unavailable Unavailab le Re-disclosure Warning The records [...] is protected by Article 27-F of the [facility] Public Health law. If you continue you may have access to information: Regarding HIV / AIDS; Provided by facilities licensed or operated by the [facility] Office of Mental Health; or Provided by the [facility] Office for People With Developmental Disabilities. If such information is present, then the following [facility] mandated warning applies: This information has been [...] law may result in a fine or residential sentence or both. A general authorization for the release of medical or other information is NOT sufficient authorization for further disc losure. Allergies and Adverse Reactions Type Description Substance Reaction Status Data Source(s ) Drug Class NO KNOWN ALLERGIES NO KNOWN ALLERGIES [facility] Family History Family Member Name Family Member Gender Family Member Status Date o f Status Description Data Source(s) Unknown Male Problem MEDENT ([facility]) Encounters Encounter Providers Location Date Indications Data Source(s ) (PN Proc 60) Pain Procedure 60 [address] [place] [address] 12/13/2020 12:00:00 AM EST eCW1 ([facility]) Unknown [address] [facility] [address] 12/13/2020 12:00:00 AM EST eCW1 ([facility]) Office Visit Attender: Claudio Armendariz MD Main Office 01:45:00 PM EST MEDENT ([facility] ) Office Visit Attender: VISHNU ESPINOSA MD Main Office 12/05/2020 09: 30:00 AM EST MEDENT ([facility]) Outpatient Attender: CHRISTIANE PALAFOX MD [facility] 11/28/2020 02:30:00 PM EST MEDENT ([facility]) Office Visit Attender: TONEY BEDOYA MD Main office - [facility] 11/27/2020 02:15:00 PM EST MEDENT ([facility]) Unknown [address] [facility] [address] 11/20/2020 12:00:00 AM EST eCW1 ([facility]) Outpatient [address] [facility] [address] 11/17/2020 12:00:00 AM EST eCW1 ([facility]) Office Visit Attender: KAITLIN ATKINS Medical [facility] 01:30:00 PM EST MEDENT (Thai Shay MD) Outpatient Attender: AYDE CRANE [id number] 01/05/2020 08:58:25 PM [facility] Outpatient 11/04/2020 08:05:00 PM EST S troke; right sided facial droop with dyarthria and right tongue deviation. [facility] Stroke; right sided facial droop with dy arthria and right tongue deviation. Outpatient Attender: AYDE JOHNOUD [id number] 11/04/2020 12:00 :00 AM EST [facility] Office Visit Attender: VIJAY SOTO PA Medical [facility] 10/26/2020 11:00:00 AM EST MEDENT (Thai Shay MD) Office Visit Attender: TONEY BEDOYA MD Main office - [facility] 10/03/2020 02:30:00 PM EST MEDENT ([facility]) Office Visit Attender: KAITLIN ATKINS Medical Building 02:00:00 PM EDT MEDENT (Thai Shay MD) (PN Proc 60) Pain Procedure 60 [id number] 08/15/2020 12:00:00 AM EDT eCW1 ([facility]) Outpatient Attender: TONEY BEDOYA MD Main office - [facility] 08/03/2020 03:30:00 PM EDT MEDENT ([facility]) [facility] [address] [place] [phone] 05/03/2020 12:00:00 AM EDT eCW1 ([facility]) Unknown [address] [facility] [address] 05/02/2020 12:00:00 AM EDT eCW1 ([facility]) [facility] [address] [place] [phone] 04/17/2020 12:00:00 AM EDT eCW1 ([facility]) [facility] [address] [place] [phone] 04/04/2020 12:00:00 AM EDT eCW1 ([facility]) Outpatient Attender: IRVIN BLUE MD Physical Therapy 08:30:00 AM EDT MED[facility] ([facility]) [facility] [address] [place] [phone] 03/21/2020 12:00:00 AM EDT eCW1 ([facility]) [facility] [address] [place] [phone] 03/07/2020 12:00:00 AM EDT eCW1 ([facility]) [facility] [address] [place] [phone] 02/07/2020 12:00:00 AM EDT eCW1 ([facility]) [facility] [address] [place] [phone] 01/25/2020 12:00:00 AM EDT eCW1 ([facility]) Outpatient Attender: TONEY BEDOYA MD Main office - [facility] 11/29/2019 10:30:00 AM EST MED[facility] ([facility]) Medications Medication Brand Name Start Date Product Form Dose Route Admi nistrative Instructions Pharmacy Instructions Status Indications Reaction Description Data Source(s) Sutab Sutab 12/07/2020 12:00:00 AM EST active [facility] ([facility]) gabapentin 300 MG Oral Capsule Gabapentin 12/04/2020 12:00:00 AM EST ORAL active [facility] ([facility]) Omeprazole 40 MG Delayed Release Oral Capsule Omeprazole 12/04/2020 12:00:00 AM EST ORAL active [facility] ([facility]) Cholecalciferol 1000 UNT Oral Tablet Vitamin D 12/04/2020 12:00:00 A M EST ORAL active [facility] ([facility]) Multivitamin Adult 12/04/2020 12:00:00 AM EST ORAL active [facility] ([facility]) vilazodone hydrochloride 40 MG Oral Tablet [Viibryd] Viibryd 12/04/2020 12:00:00 AM EST ORAL active [facility] ([facility]) Aspirin 81 MG Delayed Release Oral Tablet Aspirin 12/04/2020 1 2:00:00 AM EST ORAL active [facility] ([facility]) Lisinopril 10 MG Oral Tablet Lisinopril 12/04/2020 12:00:00 AM EST ORAL active [facility] ([facility]) Rosuvastatin calcium 40 MG Oral Tablet [Crestor] Crestor 12/04/2020 12:00:00 AM EST ORAL active [facility] ([facility]) buspirone hydrochloride 10 MG Oral Tablet Buspirone HCL 12/04/2020 12:00:00 AM EST ORAL active [facility] ([facility]) Levofloxacin 500 MG Oral Tablet Levofloxacin 11/25/2020 12:00:00 AM EST completed [facility]) Diclofenac Sodium 0.01 MG/MG Topical Gel Diclofenac Sodium 12/29/2019 12:00:00 AM EST active [facility] Insurance Providers Payer name Policy type / Coverage type Policy ID Covered republican ID Covered republican's relationship to schroeder Policy Schroeder Plan Information EMEDNY [id number] SP [id number] MEDICARE [id number] SP [id number] EMEDNY [id number] SP [id number] MEDICARE [id number] SP [id number] MEDICARE C [id number] S [id number] [id number] MEDICAID M [id number] S [id number] MEDICARE A [id number] Self [id number] F92 MEDICAID M [id number] Self [id number] [facility] [id number] SP [id number] OTHER WORKERS COMPENSATION [id number] SP [id number] MEDICAID [id number] SP [id number] MEDICAID [id number] SP [id number] Medicare [facility] Medicare Primary [id number] Self [id number] Medicaid [facility] Part B [id number] Self [id number] [place] Primary [id number] Self [id number] [place] Primary [id number] Self [id number] ANS-Medicaid [id number] ANS-Medicare Part B [id number] Medicaid [place] Medigap Part B [id number] Self [id number] [place] Primary [id number] Self [id number] MEDICARE PART A -O/P [id number] 18 [id number] MEDICAID-O/P [id number] MEDICARE A [id number] Self [id number] A MEDICAID [id number] S [id number] MEDICARE [id number] S [id number] F92 SELF PAY NONE S NONE ANSI-Medicare Part B [id number] ANSI-Medicaid [id number] ANSI-Medicare Part B [id number] ANSI-Medicaid [id number] ANSI-Medicaid [id number] ANSI-Medicare Part B [id number] ANSI-Medicare Part B [id number] ANSI-Medicaid [id number] [facility] [id number] Medicaid [facility] Part B [id number] Self [id number] Medicare [facility] Medicare Primary [id number] Self [id number] ANSI-Medicare Part B [id number] ANSI-Medicaid [id number] MEDICARE [id number] A ANSI-Medicare Part B [id number] ANSI-Medicaid [id number] ANSI-Medicaid [id number] ANSI-Medicare Part B [id number] Medicaid [facility] Part B [id number] Self [id number] [place] Primary [id number] Self [id number] ANSI-Medicaid [id number] ANSI-Medicare Part B [id number] MEDICAID [id number] SP [id number] MEDICARE [id number] SP [id number] A MEDICARE C [id number] S [id number] A Medicaid [facility] S D [id number] SELF [id number] DME Jurisdiction A [facility] C [id number] SELF [id number] Medicare C [id number] SELF [id number] A MEDICARE PART A -O/P [id number] 18 [id number] MEDICAID -O/P EMERGENCY ROOM [id number] Medicaid [place]ig[place] Part B [id number] Self [id number] Medicare [facility] Medicare Primary [id number] Self [id number] MEDICAID UNAVAILABLE [place] BLE [place] Self [place] Self [place] B Self Medicare [place]/NGS Medicare Primary Self MEDICARE -O/P [id number] 18 [id number] SELF PAY UNAVAILABLE SP UNAVAILA BLE [employer] [place] Medig[place] Part B Self Medicare [place] Medicare Primary Self CONTRACT CLAIMS UNK SP UNK MEDICARE A [id number] Self [id number] A CONTRACT CLAIMS [id number] SP CLM [id number] CONTRACT CLAIMS UNAVAILABLE SP UN AVAILABLE MEDICAID W [id number] S [id number] MEDICARE OUTPATIENT M [id number] S [id number] Problems, Conditions, and Diagnoses Code Display Name Description Problem Type Effective Dates Data Source(s) 718261209 Ostium secundum type atrial septal defec t Ostium secundum type atrial septal defect Problem 12/05/2020 12:00:00 AM EST MEDENT ([facility]) 77223049 Cerebral artery occlusion Cerebral artery occlusion Pr oblem 12/05/2020 12:00:00 AM EST MEDENT ([facility]) 94682231 Essential hypertension Essential hypertension Problem 12/05/2020 12:00:00 AM EST MED[facility] ([facility]) 637719018 Pure hypercholesterolemia Pure hypercholesterolemia Pr oblem 12/05/2020 12:00:00 AM EST MED[facility] ([facility]) 530354225 Morbid obesity Morbid obesity Problem 12/05/2020 12:00: 00 AM EST MEDENT ([facility]) 770857739 Dietary management surveillance Dietary manageme nt surveillance Problem 12/05/2020 12:00:00 AM EST [facility] ([facility] 655818444 Mixed hyperlipidemia Mixed hyperlipidemia Problem 12/05/2020 12:00:00 AM EST MED[facility] ([facility]) 58681586 Palpitations Palpitations Problem 12/05/2020 12:00:00 A M EST MED[facility] ([facility]) 874376515 Edema Edema Problem 12/05/2020 12:00:00 AM ES T MED[facility] ([facility]) M46.1 36354270 Sacroiliitis Problem 03/07/2020 12:00:00 AM EDT eCW1 ([facility]) M46.1 67814989 Sacroiliitis Problem 03/07/2020 12:00:00 AM EDT eCW1 ([facility]) Stroke; right sided facial droop with dy arthria and right tongue deviation. Stroke; right sided facial droop with dyarthria and right tongue deviation. Diagnosis 11/04/2020 08:05:00 PM [facility] Surgeries/Procedures Procedure Description Date Indications Data Source(s) UPPER NDSC BIOPSY SINGLE/MULTIPLE 12/20/2020 12:00:00 AM EST MEDENT ([facility]) COLONOSCOPY FLX DX W/WO COLLJ SPECIMENS 12/20/2020 12: 00:00 AM EST MED[facility] ([facility]) NON-INVASIVE PHYSIOLOGIC STUDY EXTREMITY 3 LEVLS 12/15 12:00:00 AM EST MEDENT ([facility] ) TSTG ANS FUNCJ CARDIOVAGAL INNERVAJ PARASYMP 1 12:00:00 AM EST MEDENT ([facility] ) TSTG ANS FUNCJ CARDIOVAGAL INNERVAJ PARASYMP 1 12:00:00 AM EST MEDENT ([facility] ) TESTING AUTONOMIC NERVOUS SYSTEM FUNCTION 12/15/2020 1 2:00:00 AM EST MED[facility] ([facility] ) TESTING AUTONOMIC NERVOUS SYSTEM FUNCTION 12/15/2020 1 2:00:00 AM EST MED[facility] ([facility] ) Completion of procedural visit when meets criteria 12/13/2020 12:00:00 AM EST eCW1 ([facility]) Magnetic Resonance Angiogtaphy Head W/O Contrast Material(S) 12/12/2020 12:00:00 AM EST MED[facility] ([facility]) Magnetic Resonance Angiogtaphy Head W/O Contrast Material(S) 12/12/2020 12:00:00 AM EST MED[facility] ([facility]) Magnetic Resonance Angiography Neck W/O Contrast Materials 12/12/2020 12:00:00 AM EST MED[facility] ([facility]) Magnetic Resonance Angiography Neck W/O Contrast Materials 12/12/2020 12:00:00 AM EST MED[facility] ([facility]) ECG ROUTINE ECG W/LEAST 12 LDS W/I&R 12/05/2020 12:00: 00 AM EST MEDENT ([facility]) Arterial Pressure Waveform Analysis For Assessment Of Centra l Art 12/05/2020 12:00:00 AM EST MEDENT ([facility]) Needle electromyography, each extremity, with related paraspinal areas, when performed, done with nerve conduction, amplitude and latency/velocity study; complete, five or more muscles studied, innervated by three or more nerves or four or more spinal levels (list separately in addition to the code for primary procedure). 08/14/2020 12:00:00 AM EDT MEDEN T ([facility] ) Needle electromyography, each extremity, with related paraspinal areas, when performed, done with nerve conduction, amplitude and latency/velocity study; complete, five or more muscles studied, innervated by three or more nerves or four or more spinal levels (list separately in addition to the code for primary procedure). 08/14/2020 12:00:00 AM EDT MEDEN T ([facility] ) Nerve Conduction 11-12 Studies 08/14/2020 12:00:00 AM EDT MEDENT ([facility] ) Needle electromyography, each extremity, with related paraspinal areas, when performed, done with nerve conduction, amplitude and latency/velocity study; complete, five or more muscles studied, innervated by three or more nerves or four or more spinal levels (list separately in addition to the code for primary procedure). 08/07/2020 12:00:00 AM EDT MEDEN T ([facility] ) Needle electromyography, each extremity, with related paraspinal areas, when performed, done with nerve conduction, amplitude and latency/velocity study; complete, five or more muscles studied, innervated by three or more nerves or four or more spinal levels (list separately in addition to the code for primary procedure). 08/07/2020 12:00:00 AM EDT MEDEN T ([facility] ) [address] Nerve conduction studies 7-8 studies NEW 201208/07/2020 12:00:00 AM EDT MEDENT ([facility] ) ESTABILISHED PATIENT [facility] FACILITY CHARGE 020 12:00:00 AM EDT eCW1 ([facility]) INJECT SACROILIAC JOINT 03/21/2020 12:00:00 AM EDT eCW1 ([facility]) PHYSICIAN TELEPHONE EVALUATION 11-20 MIN 02/07/2020 12 :00:00 AM EDT eCW1 ([facility]) Polysomnography Sleep Staging 4+ Parameters W/Cpap 01/17/2020 12:00:00 AM EDT MEDENT ([facility] ) Results ID Date Data Source [id number] 12/25/2020 01:04:00 PM EST JUAN ANTONIO (Thai Shay MD) Name Value Range Interpretation Code Description Data Rona rce(s) Supporting Document(s) Thyroxine (T4) free [Mass/volume] in Serum or Plasma 0.85 ng/dL 0.76-1.46 Normal (applies to non-numeric results) [facility] (Thai Shay MD ) Thyrotropin [Units/volume] in Serum or Plasma 1.150 uIU/ML 0. 358-3.740 Normal (applies to non-numeric results) [facility] (Thai Shay MD) Ferritin [Mass/volume] in Serum or Plasma 79 ng/mL 8-252 Normal (applies to non- numeric results) JUAN ANTONIO (Thai Shay MD) ID Date Data Source [id number] 12/25/2020 01:04:00 PM EST JUAN ANTONIO (Thai Shay MD) Name Value Range Interpretation Code Description Data Rona rce(s) Supporting Document(s) Laboratory test finding (navigational concept) 74 ug/dL 5 0-170 Normal (applies to non-numeric results) MED[facility] (Thai Shay MD) Laboratory test finding (navigational concept) 396 ug/dL 2 50-450 Normal (applies to non-numeric results) [facility] (Thai Shay MD) Laboratory test finding (navigational concept) 18.7 % 1 3.2-45.0 Normal (applies to non-numeric results) [facility] (Thai Shay MD) ID Date Data Source [id number] 12/25/2020 01:04:00 PM EST [facility] (Thai Shay MD) Name Value Range Interpretation Code Description Data Rona rce(s) Supporting Document(s) Laboratory test finding (navigational concept) 94 mg/dL 7 0-100 Normal (applies to non-numeric results) [facility] (Thai Shay MD) Laboratory test finding (navigational concept) Laboratory test r esult Normal (applies to non-numeric results) [facility] (Thai Shay MD) <content>Units are mL/min/1.73 m2</content>
<content></content>
<content>Chronic Kidney Disease Staging per NKF:</content>
<content></content>
<content>Stage I & II GFR >=60 Normal to Mildly Decreased</content>
<content>Stage III GFR 30- 59 Moderately Decreased</content>
<content>Stage IV GFR 15-29 Severely Decreased</content>
<content>Stage V GFR <15 Very Little GFR Left</content>
<content>ESRD GFR <15 on ROOF TILER</content>
<content></content> Laboratory test finding (navigational concept) 0.76 mg/dL 0 .55-1.30 Normal (applies to non-numeric results) [facility] (Thai Shay MD) Laboratory test finding (navigational concept) 14 mg/dL 7 -18 Normal (applies to non-numeric results) [facility] (Thai Shay MD) Laboratory test finding (navigational concept) 109 meq/L 9 8-107 Above high normal [facility] (Thai Shay MD) Laboratory test finding (navigational concept) 3.8 meq/L 3 .5-5.1 Normal (applies to non-numeric results) [facility] (Thai Shay MD) Laboratory test finding (navigational concept) 143 meq/L 1 36-145 Normal (applies to non-numeric results) [facility] (Thai Shay MD) Laboratory test finding (navigational concept) 27 meq/L 2 1-32 Normal (applies to non-numeric results) [facility] (Thai Shay MD) Laboratory test finding (navigational concept) 9.3 mg/dL 8 .8-10.2 Normal (applies to non-numeric results) [facility] (Thai Shay MD) Laboratory test finding (navigational concept) 7 meq/L 8-16 Below low normal [facility] (Thai Shay MD) Laboratory test finding (navigational concept) 13 U/L 7 -37 Normal (applies to non-numeric results) [facility] (Thai Shay MD) Laboratory test finding (navigational concept) 118 U/L 45-117 Above high normal [facility] (Thai Shay MD) Laboratory test finding (navigational concept) 29 U/L 1 2-78 Normal (applies to non-numeric results) [facility] (Thai Shay MD) Laboratory test finding (navigational concept) 3.9 GM/DL 3 .2-5.2 Normal (applies to non-numeric results) [facility] (Thai Shay MD) Laboratory test finding (navigational concept) 7.5 GM/DL 6 .4-8.2 Normal (applies to non-numeric results) [facility] (Tahi Shay MD) Laboratory test finding (navigational concept) 0.5 mg/dL 0 .2-1.0 Normal (applies to non-numeric results) [facility] (Thai Shay MD) Laboratory test finding (navigational concept) 1.1 1.2-2.2 Below low normal [facility] (Thai Shay MD) ID Date Data Source [id number] 12/25/2020 01:04:00 PM EST [facility] (Thai Shay MD) Name Value Range Interpretation Code Description Data Rona rce(s) Supporting Document(s) Laboratory test finding (navigational concept) 8.4 10 4 .0-10.0 Normal (applies to non-numeric results) [facility] (Thai Shay MD) Laboratory test finding (navigational concept) 40.3 % 3 6.0-47.0 Normal (applies to non-numeric results) [facility] (Thai Shay MD) Laboratory test finding (navigational concept) 4.53 10 4 .00-5.40 Normal (applies to non-numeric results) [facility] (Thai Shay MD) Laboratory test finding (navigational concept) 12.9 g/dL 1 2.0-15.5 Normal (applies to non-numeric results) [facility] (Thai Shay MD) Laboratory test finding (navigational concept) 89.0 fl 8 0.0-96.0 Normal (applies to non-numeric results) [facility] (Thai Shay MD) Laboratory test finding (navigational concept) 32.0 g/dL 3 2.0-36.5 Normal (applies to non-numeric results) [facility] (Tahi Shay MD) Laboratory test finding (navigational concept) 28.5 pg 2 7.0-33.0 Normal (applies to non-numeric results) [facility] (Thai Shay MD) Laboratory test finding (navigational concept) 257 10 1 50-450 Normal (applies to non-numeric results) [facility] (Thai Shay MD) Laboratory test finding (navigational concept) 13.4 % 1 1.5-14.5 Normal (applies to non-numeric results) [facility] (Thai Shay MD) Laboratory test finding (navigational concept) 62.5 % 3 6.0-66.0 Normal (applies to non-numeric results) AURELIO[facility] (Thai Shay MD) Laboratory test finding (navigational concept) 7.7 % 0 .0-8.0 Normal (applies to non-numeric results) [facility] (Thai Shay MD) Laboratory test finding (navigational concept) 27.3 % 2 4.0-44.0 Normal (applies to non-numeric results) [facility] (Thai Shay MD) Laboratory test finding (navigational concept) 1.4 % 0 .0-3.0 Normal (applies to non-numeric results) [facility] (Thai Shay MD) Laboratory test finding (navigational concept) 0.0 % 0 -0 Normal (applies to non- numeric results) [facility] (Thai Shay MD) Laboratory test finding (navigational concept) 0.6 % 0 .0-1.0 Normal (applies to non-numeric results) [facility] (Thai Shay MD) Laboratory test finding (navigational concept) 0.5 % 0 -3.0 Normal (applies to non-numeric results) [facility] (Thai Shay MD) Laboratory test finding (navigational concept) 2.3 10 1 .5-5.0 Normal (applies to non-numeric results) [facility] (Thai Shay MD) Laboratory test finding (navigational concept) 5.3 10 1 .5-8.5 Normal (applies to non-numeric results) [facility] (Thai Shay MD) Laboratory test finding (navigational concept) 0.7 10 0 .0-0.8 Normal (applies to non-numeric results) [facility] (Thai Shay MD) Laboratory test finding (navigational concept) 0.1 10 0 .0-0.5 Normal (applies to non-numeric results) [facility] (Thai Shay MD) Laboratory test finding (navigational concept) 0.1 10 0 .0-0.2 Normal (applies to non-numeric results) JUAN ANTONIO (Thai Shay MD) ID Date Data Source [id number] 12/22/2020 09:40:00 AM EST [facility] Name Value Range Interpretation Code Description Data Rona rce(s) Supporting Document(s) SARS coronavirus 2 RNA Not Detected [facility] This lab was ordered by [facility] and reported by [facility]. ID Date Data Source [id number] 12/20/2020 11:18:00 AM EST [facility] ([facility]) Name Value Range Interpretation Code Description Data Rona rce(s) Supporting Document(s) Surgical pathology study Laboratory test result [facility] ([facility]) FINAL DIAGNOSIS Below Z line, biopsy: Junctional mucosa with chronic inflammation and reactive changes. No evidence for intestinal metaplasia. 12/21/2020 - 134 CLINICAL DIAGNOSIS Refractory heartburn, personal history of colon cancer 12/21/2020722 GROSS DIAGNOSIS Received in formalin labeled "below Z-line biopsy" consists of four fragments of jacobsen tissue, 0.4 x 0.4 x 0.2 cm in aggregate. All in one. -SV 12/21/2020 - 722 Signed AVTAR RIVAS MD 12/21/2020 1437 ID Date Data Source [id number] 12/15/2020 09:30:00 AM EST [facility] Name Value Range Interpretation Code Description Data Rona rce(s) Supporting Document(s) SARS coronavirus 2 RNA Not Detected [facility] [place] This lab was ordered by [facility] and reported by [facility]. ID Date Data Source [id number] 12/08/2020 10:00:00 AM EST [facility] Name Value Range Interpretation Code Description Data Rona rce(s) Supporting Document(s) SARS coronavirus 2 RNA Not Detected [facility] [place] This lab was ordered by [facility] and reported by [facility]. ID Date Data Source [id number] 11/06/2020 11:01:00 AM EST [facility] ([facility]) Name Value Range Interpretation Code Description Data Rona rce(s) Supporting Document(s) Calcium [Mass/volume] in Serum or Plasma 8.6 [facility] ([facility]) Sodium 144 [facility] Carbon dioxide, total [Moles/volume] in Serum or Plasma 28 [facility] ([facility]) Chloride [Moles/volume] in Serum or Plasma 109 [facility] ([facility]) Potassium [Moles/volume] in Serum or Plasma 3.9 [facility] ([facility]) Blood Urea Nitrogen 13 5-21 [facility] ([facility]) Creatinine 0.67 0.6-1.5 [facility] ([facility]) Glucose 100 70-100 [facility] ([facility]) Glomerular filtration rate/1.73 sq M.pre dicted [Volume Rate/Area] in Serum or Plasma by Creatinine-based formula (MDRD) 60.0 [facility] ([facility]) ID Date Data Source [id number] 11/06/2020 11:01:00 AM EST [facility] ([facility]) Name Value Range Interpretation Code Description Data Rona rce(s) Supporting Document(s) Red Blood Count 4.13 4.70-6.20 [facility] ([facility]) Platelets 219 130-400 [facility] ([facility]) White Blood Count 6.0 4.3-10.9 [facility] ([facility]) Hemoglobin 11.5 13.0-17.0 [facility] ([facility]) Hematocrit 36.7 39.0-50.0 [facility] ([facility]) ID Date Data Source [id number] 11/04/2020 08:58:25 PM [facility] Name Value Range Interpretation Code Description Data Rona rce(s) Supporting Document(s) Progress Note [facility] YVYLTl1yWlRMIiJn19/TNKtjKCFfx0PjASynJRk1JTmmCJLuS3ZkUVT1eO2mIXA5DJgMTjSaQrUpViU6 [facility] [file] ICAgICAgICAgICAgICAgICAgICAgICAgICAgICAgIC AgICAgICAgICAgICAgICAgICAgICAgICAgICAgICAgICAgICAgICAgICAgICAgICAgICAgICAgICAgIC AgDQogICAgICAgICAgICAgICAgICAgICAgICAgICAgICAgICAgICAgICAgICAgICAgICAgICAgICAgIC AgICAgICAgICAgICAgICAgICAgICAgICAgICAgICAg ICAgICAgICAgICAgDQogICAgICAgICAgICAgICAgICAgICAgICAgICAgICAgICAgICAgICAgICAgICAg ICAgICAgICAgICAgICAgICAgICAgICAgICAgICAgICAgICAgICAgICAgICAgICAgICAgICAgDQogICAg ICAgICAgICAgICAgICAgICAgICAgICAgICAgICAgIC AgICAgICAgICAgICAgICAgICAgICAgICAgICAgICAgICAgICAgICAgICAgICAgICAgICAgICAgICAgIC AgICAgDQogICAgICAgICAgICAgICAgICAgICAgICAgICAgICAgICAgICAgICAgICAgICAgICAgICAgIC AgICAgICAgICAgICAgICAgICAgICAgICAgICAgICAg ICAgICAgICAgICAgICAgDQogICAgICAgICAgICAgICAgICAgICAgICAgICAgICAgICAgICAgICAgICAg ICAgICAgICAgICAgICAgICAgICAgICAgICAgICAgICAgICAgICAgICAgICAgICAgICAgICAgICAgDQog ICAgICAgICAgICAgICAgICAgICAgICAgICAgICAgIC AgICAgICAgICAgICAgICAgICAgICAgICAgICAgICAgICAgICAgICAgICAgICAgICAgICAgICAgICAgIC AgICAgICAgDQogICAgICAgICAgICAgICAgICAgICAgICAgICAgICAgICAgICAgICAgICAgICAgICAgIC AgICAgICAgICAgICAgICAgICAgICAgICAgICAgICAg ICAgICAgICAgICAgICAgICAgDQogICAgICAgICAgICAgICAgICAgICAgICAgICAgICAgICAgICAgICAg ICAgICAgICAgICAgICAgICAgICAgICAgICAgICAgICAgICAgICAgICAgICAgICAgICAgICAgICAgICAg DQogICAgICAgICAgICAgICAgICAgICAgICAgICAgIC AgICAgICAgICAgICAgICAgICAgICAgICAgICAgICAgICAgICAgICAgICAgICAgICAgICAgICAgICAgIC PiDZFpNDNyOPDbQAi8V8jhRJSlZSTaNU8gWHc1Mb0+RMzFMxPiRRH9qqLfxF0WFA7pi4VgHCzdWVRjo0 MgCKo0DW8VWLIoUWioQZ2BMZeiod6JVAWdHCIxtGXY i7tmTfOwQBM1PQLhDyjuSO0IEYRuO5cszaLzZUZnZQIWQOhaAWCXUPgoZUUVGWVpJCSoZlNqNLowHQ9J t1XfmND4EMv+Sf5GGF1qm7ReESvvMPEpFS3nwn0EXYhNGcEyF4TqynE2QGI9YHEqBc8CSLBvDSOhrVYn UTBeVGEELgSoN5WcyN92OWSWLi6+DQplbmRvYmoNCj T5JXZbf2LuRTg5FN6LAOAjKAz1wOAlRVWaA1Tvy7WiDu69OKSkKhicPXYwbHBaDYWhZNYfd5IcMZZWMh EUZFSjdXTrJh6bJg7bYQKkPRN3VmN5ENUZHK6FPPElVURrfOEyOCEbAHLLXN6RNRcrWXD3AWZblhOkxY IhKZreSH7MMQUosdIpUjvqPYAMZOx+Sm1KCV7vq1To CWomZWJmKL0bph6EBNuDXgExZ9D3eSIiD8K7LQvpRd5AADWiWOLwGhIpUYKORDhpLD9CXS4gfzX7GJ3E yKEpZZXdXLObvWLtBNv7Y93woIOvBPdgVW5TNJP+Raulito+Ko6TYFGbYUPqGLGhWaAyJFOFRuFzG0NeX2PV l7ZbI6YvXC18uJgrkqOrNAiyBX9INE6lLNMnWTRIQY 1WfSHniS4rjfJwOSDkBECGKuLkK91gjIReYLPdTBY6OXNkUq8HDSVfG2EoqeVtsYeliwOvBOIjSYPBNC 6BTBsatkUfuSLdcRjkRW32jTnxLO1JPk3OYkYaBO4jhx5VuPVhFc2GTKRpIN5IEYAvKCYeTRKcKGG5WZ BeNnKjOVccLETiMUPgEQB0PIWxWMRiFU6YSuBjPNFl DyA1FANbWFSpHVZmjn0LQHOiAPRqVHM9BXVpAXGzDTAoNNhrYKDyQFIeOPI6MVBpOYCzCX2MBdRhYZTp CEG0KTSaSZMjFOCjmn6QMIIcAHSwUnm7VuFmYKYzFMAvQQmpGKHxJVR4ObV9OGEtJBMtST2JCqEwKAWn QSh9MbNvHPEkKRWtgi8EGQLgXMVtHiL3GlFdUMNqRU GyPUuuFEGgDLTiTtD3QZGmAKRpAX6GTpXdFYVjFHFgFIIdWXBvBCPqxd7EEZKbOJZgWqKeFaSsTYLxGH XyLUcaNAByARD3RGk3EOYzKUOgJZ9TYrFkJPXbNYQ7JhTlCLPlAEYrud4KAYQfNOHfRLs6LsJqGDDdDJ JlKHokMDJgWMA6CKQ8LVHhAIUnMB3BEmCoXEJbMEHo LMciKNPvUHNolh2RBTYyFINvOqUhCxHyOXMdKSGrGNlyUXYhGDKbUTN1NRCiRYMfSO5FXaNwJDYaFwAz XwQzIBXgENMzdg0IBYPgJAIlXBKiPETsQFHaEXLwTJbtQCBmJYN4YHEoOHQwYNUuST6XTzUuPXScIvOq EDixWCQdBIMdpo0PCHHbWETkJzRhJjKdZIJnRCVhZU hbWQEiIMQ8OgAeOQGvPUAvXS2CRjLlQHWhGiLaJATqOFLpENRawp2VHGNsRROyYaccFPJlNETeXUYqHE uaDLYpIZJ0EfI7BDWmIPLiMT6YAqMsFXDoPfjfXfdvPEDqSYXkts6ZHHEjJKKcLFC9EwVsEOIpBDIgAK z1eaQryNNnZIt3IN4FZ7TavoYjXhIPOx8Sj181FPUr PUEdHr9VF0opOd1dJIJlPEBIFo5LVUk3UWmiOkX8GQQqNaT8TKDmJZGjGOJeHIZ9BgP7NZK4BpS+IDxl CzZ3HYx3LBXjLTl6JOL7EbRhPpTuMFA2OoRlFHljTt8yONRTRz1+JDvflTLeoUcoJMKXViL3OeO2FPdy FRRLOr3I ID Date Data Source [id number] 11/04/2020 08:33:00 PM EST [facility] Name Value Range Interpretation Code Description Data Rona rce(s) Supporting Document(s) SARS coronavirus 2 RNA [Presence] in Res piratory specimen by VIKAS with probe detection [facility] This lab was ordered by [facility] a nd reported by [facility]. ID Date Data Source [id number] 10/26/2020 12:00:00 AM EST [facility] Name Value Range Interpretation Code Description Data Rona rce(s) Supporting Document(s) SARS-CoV2 Rapid Antigen [facility] This lab was ordered by [facility] and reported by Thai Shay MD. ID Date Data Source [id number] 08/14/2020 10:54:00 AM EDT [facility] ([facility]) Name Value Range Interpretation Code Description Data Rona rce(s) Supporting Document(s) Cholesterol 195 [facility] ([facility]) Triglycerides 184 [facility] ([facility]) HDL 62 [facility] Cholesterol in LDL [Mass/volume] in Serum or Plasma by calculation 95 [facility] ([facility]) Chol/HDL Ratio 3.145 [facility] ([facility]) ID Date Data Source [id number] 08/14/2020 10:54:00 AM EDT [facility] ([facility]) Name Value Range Interpretation Code Description Data Rona rce(s) Supporting Document(s) Alanine aminotransferase [Enzymatic activity/volume] in Serum or Pl asma 28 [facility] ([facility]) Albumin [Mass/volume] in Serum or Plasma 4.0 [facility] ([facility]) Calcium [Mass/volume] in Serum or Plasma 9.2 [facility] ([facility]) Chloride [Moles/volume] in Serum or Plasma 111 [facility] ([facility]) Carbon dioxide, total [Moles/volume] in Serum or Plasma 29 [facility] ([facility]) Alkaline phosphatase [Enzymatic activity/volume] in Serum or Plasma 1 40 [facility] ([facility]) Potassium [Moles/volume] in Serum or Plasma 4.5 [facility] ([facility]) Protein [Mass/volume] in Serum or Plasma 7.0 [facility] ([facility]) Aspartate aminotransferase [Enzymatic activity/volume] in Serum or Plasma 15 [facility] ([facility]) Urea nitrogen [Mass/volume] in Serum or Plasma 13 [facility] ([facility]) Sodium 144 [facility] ([facility]) Glucose 105 83-110 [facility] ([facility]) Creatinine For GFR 0.72 [facility] ([facility]) ID Date Data Source [id number] 08/14/2020 10:54:00 AM EDT [facility] ([facility]) Name Value Range Interpretation Code Description Data Rona rce(s) Supporting Document(s) White Blood Count 5.6 5.0-10.0 [facility] ([facility]) Red Blood Count 4.30 4.00-5.40 [facility] ([facility]) Platelets 218 172-450 [facility] Hemoglobin 12.1 [facility] ([facility]) Hematocrit 38.3 [facility] ([facility]) ID Date Data Source [id number] 08/10/2020 10:00:00 AM EDT [facility] Name Value Range Interpretation Code Description Data Rona rce(s) Supporting Document(s) SARS coronavirus 2 RNA [facility] This lab was ordered by [facility] and reported by [facility]. ID Date Data Source [id number] 06/23/2020 12:34:00 PM EDT [facility] (Thai Shay MD) Name Value Range Interpretation Code Description Data Rona rce(s) Supporting Document(s) Ferritin [Mass/volume] in Serum or Plasma 84 ng/mL 8-252 Normal (applies to non- numeric results) [facility] (Thai Shay MD) Thyrotropin [Units/volume] in Serum or Plasma 2.240 uIU/ML 0. 358-3.740 Normal (applies to non-numeric results) [facility] (Thai Shay MD) ID Date Data Source [id number] 06/23/2020 12:34:00 PM EDT [facility] (Thai Shay [...] (Thai Shay MD) ID Date Data Source [id number] 06/23/2020 11:40:00 AM EDT MEDTANESHA (Thai Shay [...] 1 2.0-15.5 Normal (applies to non-numeric results) JUAN ANTONIO (Thai Shay MD) Laboratory test finding (navigational concept) 4.53 10 4 .00-5.40 Normal (applies to non-numeric results) JUAN ANTONIO (Thai Shay MD) Laboratory test finding (navigational concept) 90.1 fl 8 0.0-96.0 Normal (applies to non-numeric results) [facility] (Thai Shay MD) Laboratory test finding (navigational concept) 28.9 pg 2 7.0-33.0 Normal (applies to non-numeric results) AURELIOENT (Thai Shay MD) Laboratory test finding (navigational concept) 13.5 % 1 1.5-14.5 Normal (applies to non-numeric results) MEDTANESHA (Thai Shay MD) Laboratory test finding (navigational [...] 1 .5-8.5 Normal (applies to non-numeric results) [facility] (Thai Shay MD) Laboratory test finding (navigational concept) 0.0 % 0 -0 Normal (applies to non- numeric results) [facility] (Thai Shay MD) Laboratory test finding (navigational concept) 0.5 10 0 .0-0.8 Normal (applies to non-numeric results) [facility] (Thai Shay MD) Laboratory test finding (navigational concept) 0.1 10 0 .0-0.5 Normal (applies to non-numeric results) AURELIOENT (Thai Shay MD) Laboratory test finding (navigational concept) 2.1 10 1 .5-5.0 Normal (applies to non-numeric results) [facility] (Thai Shay MD) Laboratory test finding (navigational concept) 0.0 10 0 .0-0.2 Normal (applies to non-numeric results) [facility] (Thai Shay MD) ID Date Data Source [id number] 03/18/2020 09:50:00 AM EDT [facility] Name Value Range Interpretation Code Description Data Rona rce(s) Supporting Document(s) SARS CORONAVIRUS 2 RNA [facility] This lab was ordered by [facility] and reported by [facility]. Procedure Social History Code Duration Value Status Description Data Source(s ) Smoking 12/13/2020 12:00:00 AM EST Never Smoker completed Never S moker eCW1 ([facility]) Smoking 12/13/2020 12:00:00 AM EST Never Smoker completed Never S moker eCW1 ([facility]) Smoking 12/05/2020 12:00:00 AM EST Patient has never smoked co mpleted Patient has never smoked [facility] ([facility]) Smoking 11/17/2020 12:00:00 AM EST Never Smoker completed Never S moker eCW1 ([facility]) Smoking 11/17/2020 12:00:00 AM EST Never Smoker completed Never S moker eCW1 ([facility]) Smoking 08/15/2020 12:00:00 AM EDT Never Smoker completed Never S moker eCW1 ([facility]) Smoking 04/04/2020 12:00:00 AM EDT Never Smoker completed Never S moker eCW1 ([facility]) Vital Signs ID Date Data Source [id number] Name Value Range Interpretation Code Description Data Source(s) Diastolic blood pressure 81 mm[Hg] 81 mm[Hg] eCW1 ([facility]) Systolic blood pressure 157 mm[Hg] 157 mm[Hg] e CW1 ([facility]) Body temperature 97.9 [degF] 97.9 [degF] eCW1 ( [facility]) Respiratory rate 18 /min 18 /min eCW1 ([facility]) Heart rate 73 /min 73 /min eCW1 ([facility]ly [facility]) Body mass index (BMI) [Ratio] 39.37 kg/m2 39.37 kg/m2 W1 ([facility]) Body height 64 [in_i] 64 [in_i] eCW1 ([facility]) Body weight 229.4 [lb_av] 229.4 [lb_av] eCW1 ([facility]) Body temperature 97.7 [degF] 97.7 [degF] MEDENT [...] mm[Hg] 75 mm[Hg] [facility] ([facility]) CBP, large cuff/Ra Systolic blood pressure--sitting 135 mm[Hg] 135 mm[Hg] [facility] ([facility]) CBP, large cuff/Ra Heart rate 57 /min 57 /min [facility] ([facility]) Body mass index (BMI) [Ratio] 40.6 kg/m2 40.6 k g/m2 [facility] ([facility]) Body height 63 [in_i] 63 [in_i] [facility] ([facility]) 5'3" Body weight 229.00 [lb_av] 229.00 [lb_av] MEDEN T ([facility]) Body surface area Derived from formula 2.05 m2 2.05 m2 MED[facility] ([facility] Body mass index (BMI) [Ratio] 40.6 kg/m2 40.6 k g/m2 [facility] ([facility]) Body height 63 [in_i] 63 [in_i] MEDENT ([facility] 5'3" Body weight 229.00 [lb_av] 229.00 [lb_av] MEDEN T ([facility]) Heart rate 78 /min 78 /min MED[facility] ([facility]) Diastolic blood pressure 68 mm[Hg] 68 mm[Hg] MEDENT ([facility]) Systolic blood pressure 110 mm[Hg] 110 mm[Hg] M EDENT ([facility]) Diastolic blood pressure 77 mm[Hg] 77 mm[Hg] eCW1 ([facility]) Systolic blood pressure 123 mm[Hg] 123 mm[Hg] e CW1 ([facility]) Body temperature 96.0 [degF] 96.0 [degF] eCW1 ( [facility]) Respiratory rate 18 /min 18 /min eCW1 ([facility]) Heart rate 75 /min 75 /min eCW1 ([facility]) Body mass index (BMI) [Ratio] 39.54 kg/m2 39.54 kg/m2 eCW1 ([facility]) Body height 64 [in_i] 64 [in_i] eCW1 ([facility]) Body weight 230.4 [lb_av] 230.4 [lb_av] eCW1 ([facility]) Oxygen saturation in Arterial blood by Pulse oximetry 97 % 97 % [facility] (Thai Shay MD) Heart rate 78 /min 78 /min [facility] (Thai Shay MD) Diastolic blood pressure 92 mm[Hg] 92 mm[Hg] [facility] (Thai Shay MD) Systolic blood pressure 158 mm[Hg] 158 mm[Hg] M EDENT (Thai Shay MD) Body temperature 97.5 [degF] 97.5 [degF] [facility] (Thai Shay MD) Body mass index (BMI) [Ratio] 39.4 kg/m2 39.4 k g/m2 [facility] (Thai Shay MD) Body weight 229.38 [lb_av] 229.38 [lb_av] MEDEN T (Thai Shay MD) Body height 64 [in_i] 64 [in_i] AURELIOENT (Thai Shay MD) 5'4" Diastolic blood pressure 79 mm[Hg] 79 mm[Hg] eCW1 ([facility]) Systolic blood pressure 162 mm[Hg] 162 mm[Hg] e CW1 ([facility]) Body temperature 97.5 [degF] 97.5 [degF] eCW1 ( [facility]) Respiratory rate 18 /min 18 /min eCW1 ([facility]) Heart rate 58 /min 58 /min eCW1 ([facility]) Body mass index (BMI) [Ratio] 39.89 kg/m2 39.89 kg/m2 eCW1 ([facility]) Body height 64 [in_i] 64 [in_i] eCW1 (Formerly [facility]) Body weight 232.4 [lb_av] 232.4 [lb_av] eCW1 ([facility]) Diastolic blood pressure 70 mm[Hg] 70 mm[Hg] eCW1 (Formerly [facility]) Systolic blood pressure 139 mm[Hg] 139 mm[Hg] e CW1 (Formerly [facility]) Body temperature 96.9 [degF] 96.9 [degF] eCW1 ( Formerly [facility]) Respiratory rate 19 /min 19 /min eCW1 ([facility]) Heart rate 69 /min 69 /min eCW1 (Formerly [facility]) Body mass index (BMI) [Ratio] 41.02 kg/m2 41.02 kg/m2 W1 (Formerly [facility]) Body height 64 [in_us] 64 [in_us] eCW1 (Formerly [facility]) Body weight Measured 239.0 [lb_av] 239.0 [lb_av ] eCW1 (Formerly [facility]) Diastolic blood pressure 85 mm[Hg] 85 mm[Hg] eCW1 (Formerly [facility]) Systolic blood pressure 138 mm[Hg] 138 mm[Hg] e CW1 (Formerly [facility]) Body temperature 97.3 [degF] 97.3 [degF] eCW1 ( Formerly [facility]) Respiratory rate 18 /min 18 /min eCW1 ([facility]) Heart rate 88 /min 88 /min eCW1 (Formerly [facility]) Body mass index (BMI) [Ratio] 40.75 kg/m2 40.75 kg/m2 eCW1 (Formerly [facility]) Body height 64 [in_us] 64 [in_us] eCW1 (Formerly [facility]) Body weight Measured 237.4 [lb_av] 237.4 [lb_av ] eCW1 (Formerly [facility]) Diastolic blood pressure 87 mm[Hg] 87 mm[Hg] eCW1 (Formerly [facility]) Systolic blood pressure 152 mm[Hg] 152 mm[Hg] e CW1 (Formerly [facility]) Body temperature 97.7 [degF] 97.7 [degF] eCW1 ( Formerly [facility]) Respiratory rate 18 /min 18 /min eCW1 ([facility]) Heart rate 98 /min 98 /min eCW1 (Formerly [facility]) Body mass index (BMI) [Ratio] 40.71 kg/m2 40.71 kg/m2 eCW1 (Formerly [facility]) Body height 64 [in_us] 64 [in_us] eCW1 (Formerly [facility]) Body weight Measured 237.2 [lb_av] 237.2 [lb_av ] eCW1 (Formerly [facility]) ID Date Data Source [id number] 11/08/2020 07:51:[address] [facility] Hospital Name Value Range Interpretation Code Description Data Source(s) TRANSFER FROM [facility]
[2020-12-27] MEDS ORDERED: LIDOCAINE VISCOUS 2% SOLN 15ML UDC As Ordered ONE (12:50)
[2020-12-27] MEDS ORDERED: MIDAZOLAM INJ 2MG/2ML VIAL (J2250 PER 1MG) As Ordered ONE (12:52)
[2020-12-27] MEDS ORDERED: LIDOCAINE VISCOUS 2% SOLN 15ML UDC MT ONE (13:15)
--- NOTE | 2020-12-27 14:00 | T-ECHO ---
TRANSESOPHAGEAL ECHO DATE: 12/27/2020 REFERRING PHYSICIAN: Kael Pineda M.D. INDICATIONS: Atrial septal defect, personal history of stroke. PREPROCEDURE DIAGNOSIS: Atrial septal defect, personal history of stroke. POSTPROCEDURE DIAGNOSIS: Patent foramen ovale (atrial septal defect), personal history of stroke. PROCEDURE PERFORMED: Transesophageal echocardiogram with saline bubble study. PROCEDURE PERFORMED BY: Kael Pineda M.D. MUFF WINDER: None. INTRAVENOUS (IV) SEDATION: Midazolam 4 mg IV. COMPLICATIONS: None. DESCRIPTION OF PROCEDURE: The patient received viscous Lidocaine to gargle and swallow. She received a total of 4 mg midazolam IV for IV sedation. The patient tolerated the procedure well without any immediate complications. Rhythm was sinus. Esophageal intubation was accomplished by Dr. Pineda without difficulty using a Roach three-dimensional transesophageal echocardiogram probe. The left and right ventricles appeared normal in size and systolic function and without regional wall motion abnormalities. A Chiari network was present in the right atrium (normal variant). Atrial septum was suspicious for the presence of patent foramen ovale. No interatrial septal aneurysm. Patent foramen ovale was confirmed with saline bubble study with Valsalva maneuver release showing small to moderate amount of shunting of bubbles from the right atrium to the left atrium via the PFO. Pulmonary vein pulse wave Doppler in the left upper pulmonary vein was normal. Pulmonary veins were fairly difficult to visualize. No mass or thrombi were seen in the left atrium or left atrial appendage. Aortic valve was 3-cuspid and was structurally and functionally normal. No aortic regurgitation. Normal appearing mitral leaflets. Very mild mitral regurgitation within normal limits. Tricuspid valve was normal. Pulmonic valve was poorly visualized. No pericardial effusion. The distal aortic arch and descending thoracic aorta showed mild atherosclerosis. CONCLUSIONS: 1. Patent foramen ovale with small to moderate amount of saline bubble shunting from right atrium to left atrium via the PFO with Valsalva maneuver release. 2. Chiari network in the right atrium (normal variant). 3. Normal left and right ventricle size and systolic function. LVEF 65% by visual estimate. 4. Mild atherosclerosis in the distal aortic arch and descending thoracic aorta. RECOMMENDATIONS: My plan is to meet with the patient in my office in the near future to discuss device closure of the PFO.
[2020-12-27 14:22] VITALS: BP 132/67
== END 2020-12-27 14:25 | disposition home or self-care (01) ==
LOC: M OPP 12:05
PROVIDERS: ATTEND Internal Medicine Cardiovascular Disease
DX: Q21.1 Atrial septal defect (principal); Z86.73 Personal history of transient ischemic attack (TIA), and cerebral infarction without residual deficits
CPT/HCPCS: 93312; 93320; 93325; J2250

== ENCOUNTER → 2021-01-01 | Outpatient (CLI) | payer MEDICARE, MEDICAID ==
[~2021-01-01] MED LIST changes: -NS 1,000 ML IV SCH
[2021-01-01 12:36] LABS: HEMATOCRIT 41.7 % (36.0-47.0); HEMOGLOBIN 12.9 g/dl (12.0-15.5); MEAN CORPUSCULAR HEMOGLOBIN 27.5 pg (27.0-33.0); MEAN CORPUSCULAR HGB CONC 30.9 g/dl (32.0-36.5); MEAN CORPUSCULAR VOLUME 88.9 fl (80.0-96.0); PLATELET COUNT, AUTOMATED 237 10^3/uL (150-450); RED BLOOD COUNT 4.69 10^6/uL (4.00-5.40); WHITE BLOOD COUNT 6.5 10^3/uL (4.0-10.0)
[2021-01-01 13:14] LABS: ALBUMIN 4.1 GM/DL (3.2-5.2); ALT/SGPT 28 U/L (12-78); BILIRUBIN,TOTAL 0.6 MG/DL (0.2-1.0); BLOOD UREA NITROGEN 15 MG/DL (7-18); CALCIUM LEVEL 9.7 MG/DL (8.8-10.2); CARBON DIOXIDE LEVEL 25 MEQ/L (21-32); CHLORIDE LEVEL 107 MEQ/L (98-107); CHOLESTEROL LEVEL 203 MG/DL (<200); CHOLESTEROL RISK RATIO 2.671 (<5); CPK CREATINE PHOSPHOKINASE 69 U/L (26-192); CREATININE FOR GFR 0.69 MG/DL (0.55-1.30); GLOMERULAR FILTRATION RATE > 60.0 (>45); GLUCOSE, FASTING 109 MG/DL (70-100); HDL CHOLESTEROL 76 MG/DL (>40); LDL CHOLESTEROL 88 MG/DL (<100); NON-HDL-C 127 MG/DL; POTASSIUM SERUM 4.1 MEQ/L (3.5-5.1); SODIUM LEVEL 142 MEQ/L (136-145); TOTAL PROTEIN 7.2 GM/DL (6.4-8.2); TRIGLYCERIDES LEVEL 197 MG/DL (<150)
== END ==
LOC: M LAB 11:59
PROVIDERS: ATTEND Nurse Practitioner Family
DX: E78.5 Hyperlipidemia, unspecified (principal); I10 Essential (primary) hypertension

== ENCOUNTER → 2021-01-08 | Outpatient (CLI) | payer MEDICARE, MEDICAID ==
--- NOTE | 2021-01-09 07:30 | ECWPNPC ---
PATIENT NAME: CHRISTAL HARRIS : 1960 GENDER: FEMALE VISIT DATE: 01/08/2021 DISCHARGE DATE: 01/08/21958 VISIT LOCKED DATE TIME: PHYSICIAN: ANDREIA WALDROP RESOURCE: ANDREIA WALDROP REASON FOR APPOINTMENT 1. POST BILATERAL SACROILIAC JOINT BLOCK HISTORY OF PRESENT ILLNESS DEPRESSION SCREENING: PHQ-9 LITTLE INTEREST OR PLEASURE IN DOING THINGSMORE THAN HALF THE DAYS FEELING DOWN, DEPRESSED, OR HOPELESSNEARLY EVERY DAY TROUBLE FALLING OR STAYING ASLEEP, OR SLEEPING TOO MUCHNEARLY EVERY DAY FEELING TIRED OR HAVING LITTLE ENERGYNEARLY EVERY DAY POOR APPETITE OR OVEREATING NEARLY EVERY DAY FEELING BAD ABOUT YOURSELF-OR THAT YOU ARE A FAILURE OR HAVE LET YOURSELF OR YOUR FAMILY DOWN NEARLY EVERY DAY TROUBLE CONCENTRATING ON THINGS, SUCH READING THE NEWSPAPER OR WATCHING TELEVISION NEARLY EVERY DAY MOVING OR SPEAKING SO SLOWLY THAT OTHER PEOPLE COULD HAVE NOTICED. OR THE OPPOSITE- BEING SO FIDGETY OR RESTLESS THAT YOU HAVE BEEN MOVING AROUND A LOT MORE THAN USUALNOT AT ALL THOUGHTS THAT YOU WOULD BE BETTER OFF , OR OF HURTING YOURSELF IN SOME WAY?NOT AT ALL TOTAL SCORE:20 INTERPRETATIONSEVERE DEPRESSION PHQ-2 (2015 EDITION) LITTLE INTEREST OR PLEASURE IN DOING THINGS?NEARLY EVERY DAY FEELING DOWN, DEPRESSED, OR HOPELESS?NEARLY EVERY DAY TOTAL SCORE6 GENERAL: HERE FOR POST PROCEDURE FOLLOW-UP. HAD BILATERAL SIJ ON 12/13/2020.-REPORTING INITIAL AGGRAVATION IN PAIN AND THEN IMPROVEMENT IN LOW BACK PAIN THAT CONTINUES TODAY. PATIENT IS VERY AGITATED TODAY. AFFECT IS CONSTRICTED AND ANGRY. SHE WAS RELUCTANT TO ANSWER QUESTIONS FOR PQRS/DEPRESSION SCREEN AND STATES THAT SHE SEES A PSYCHIATRIST. DENIES SUICIDAL IDEATIONS. FALL RISK SCREENING: SCREENING :ONE FALL WITHOUT INJURY IN THE PAST YEAR PAIN SCREENING: PATIENT HAS A COMPLAINT OF ACUTE OR CHRONIC PAIN :YES LOCATION OF PAIN:LOW BACK INTENSITY OF PAIN (SCALE OF 1 TO 10):0 WHAT DOES YOUR PAIN FEEL LIKE:BURNING, THROBBING DURATION:INTERMITTENT PAIN IS INCREASED BY:ACTIVITIES PAIN IS DECREASED BY:USE OF PAIN MEDICATIONS NURSING NOTE: -. PAIN CENTER INTAKE QUESTIONS: DO YOU HAVE A HISTORY OF MRSA? :NO DO YOU TAKE A BLOOD THINNERS? :NO DO YOU HAVE ANY BLEEDING DISORDERS? :NO ANY NEW NUMBNESS OR WEAKNESS IN YOUR LEGS OR ARMS? :YES LEFT FOOT NUMBNESS IMPROVED S/P INJECTION BUT IS RETURNING ANY PACEMAKER,DEFIBRILLATOR, OR DORSAL COLUMN STIMULATOR? :NO DO YOU HAVE ANY RASHES OR OPEN SORES? :NO ARE YOU ALLERGIC TO IV DYE? :NO ARE YOU DIABETIC? :NO ANY NEW PROBLEMS WITH YOUR MEDICATIONS? :NO HAVE YOU RECEIVED A VACCINE IN THE PAST 30 DAYS? :YES IF SO WHAT VACCINE AND WHEN? SHINGLES DO YOU PLAN TO RECEIVE A VACCINE IN THE NEXT 21 DAYS? :NO DO YOU NEED ANY PRESCRIPTION? :NO DO YOU TAKE ANY IMMUNOSUPPRESSIVE MEDICATIONS? :NO IS THERE A CHANCE YOU COULD BE ? :NO ARE YOU BREAST FEEDING? :NO CURRENT MEDICATIONS TAKING CRESTOR 10 MG TABLET 1 TABLET ORALLY ONCE A DAY TAKING BUSPIRONE HCL 10 MG TABLET 1 TABLET ORALLY BID TAKING VIIBRYD 40 MG TABLET 1 CAP ORALLY DAILY TAKING OMEPRAZOLE 40 MG CAPSULE DELAYED RELEASE 1 CAPSULE ORALLY BID TAKING CALCIUM + D3 600-200 MG-UNIT TABLET 1 TABLET WITH A MEAL ORALLY ONCE A DAY TAKING MULTIVITAMIN ADULTS - TABLET DIRECTED ORALLY TAKING LISINOPRIL 10 MG TABLET 1 TABLET ORALLY ONCE A DAY TAKING MAY HAVE - - IRON INFUSIONS INTRAVENOUSLY Q 6 MOS TAKING GABAPENTIN 300 MG TABLET 1 CAPSULE ORALLY FOR PAIN Q8H TID TAKING BABY ASPIRIN 1 TABLET DAILY TAKING VOLTAREN 1 % GEL DIRECTED TRANSDERMAL NOT-TAKING VITAMIN B12 TR 2000 MCG TABLET EXTENDED RELEASE 1 TABLET ORALLY ONCE A DAY NOT-TAKING VITAMIN B1 100 MG TABLET 1 TABLET ORALLY ONCE A DAY NOT-TAKING IBUPROFEN 800 MG TABLET 1 TABLET WITH FOOD OR MILK NEEDED ORALLY BID PRN NOT-TAKING FUROSEMIDE 40 MG TABLET 1 TABLET ORALLY ONCE A DAY NOT-TAKING ROPINIROLE HCL 1 MG TABLET 1 1/2 TABS ORALLY BID NOT-TAKING METHYLPREDNISOLONE (DREW) 4MG USE DIRECTED X 6 DAYS NOT-TAKING PANTOPRAZOLE SODIUM 40 MG TABLET DELAYED RELEASE 1 TABLET ORALLY ONCE A DAY NOT-TAKING VITAMIN D (ERGOCALCIFEROL) 62586 UNIT CAPSULE 1 CAPSULE ORALLY NOT-TAKING GABAPENTIN 100 MG CAPSULE 1 CAPSULE ORALLY ONCE DAILY NEEDED MEDICATION LIST REVIEWED AND RECONCILED WITH THE PATIENT PAST MEDICAL HISTORY HTN ANEMIA OBESITY S/P GASTRIC BYPASS HISTORY OF FLUID RETENTION BLADDER MESH DEGENERATIVE DISC DISEASE RESTLESS LEG SYNDROME DEPRESSION ANXIETY LOW BACK AND LEFT HIP PAIN RADIATING DOWN LEFT LEG TO FOOT KING CYST BILATERAL LAURITA BILATERAL CARPAL TUNNEL BILATERAL LEG WEAKNESS AND PARESTHESIAS AROUND THE KNEE SWELLING IN FEET STROKE 11/04/20 ALLERGIES N.K.D.A. SOCIAL HISTORY GENERAL: TOBACCO USE ARE YOU A:NONSMOKER LATEX QUESTIONNAIRE LATEX ALLERGY : HAVE YOU EVER DEVELOPED ANY TYPE OF REACTION AFTER HANDLING LATEX PRODUCTS SUCH RUBBER GLOVES, CONDOMS, DIAPHRAGMS, BALLOONS, SOCKS, OR UNDERWEAR?NO LATEX ALLERGY : HAVE YOU EVER DEVELOPED ANY TYPE OF REACTION DURING OR AFTER DENTAL APPOINTMENT, VAGINAL/RECTAL EXAMINATION, SURGICAL PROCEDURE, OR ANY OTHER EXPOSURE?NO LATEX RISK : HAVE YOU EVER HAD ANY DIFFICULTY BREATHING OR HIVES AFTER EATING OR HANDLING ANY FRUITS, OR VEGETABLES; SUCH KIWI, BANANAS, STONE FRUITS, OR CHESTNUTSNO LATEX RISK : DO YOU HAVE A PREVIOUS PERSONAL HISTORY OF MORE THAN NINE SURGERIES, SPINA BIFIDA, OR REPEATED CATHERIZATIONS? YES - PLEASE INDICATE : > 9 SURGERIES LATEX RISK : ARE YOU FREQUENTLY EXPOSED TO LATEX PRODUCTS IN YOUR OCCUPATION?NO DATE ASKED : 01/08/2021 ALCOHOL USE: NO. LUNG CANCER SCREENING SMOKING STATUS:NON SMOKER ALCOHOL SCREENING DID YOU HAVE A DRINK CONTAINING ALCOHOL IN THE PAST YEAR?NO POINTS0 INTERPRETATIONNEGATIVE RECREATIONAL DRUG USE DRUG USE?NO CAFFEINE CAFFEINE USE?YES 4 CUPS OF COFFEE A DAY SEXUAL HX HAD SEX IN THE LAST 12 MONTHS (VAGINAL, ORAL, OR ANAL)?: NO, HAVE YOU EVER HAD AN STD?: NO. MOSQUE [id number] WORSHIP LANGUAGE UKRAINIAN. EDUCATION LEVEL OF EDUCATION:FINISHED [employer] LEARNING BARRIERS / SPECIAL NEEDS CHANGE FROM LAST VISIT?YES BARRIERS TO LEARNING?NO HEARING IMPAIRED?NO VISION IMPAIRED?NO COGNITIVELY IMPAIRED?NO READINESS TO LEARN?YES LEARNING PREFERENCES?YES :DEMONSTRATION/VERBAL INSTRUCTION LEARNING CAPABILITIES PRESENT?YES EMOTIONAL BARRIERS?NO SPECIAL DEVICES?NO ANTHROPOLOGICAL LINGUIST NEEDED?NO DOMESTIC VIOLENCE NONE. DIET: REGULAR. EXERCISE: WALKS. MARITAL STATUS: .. OTHERS AT HOME: BOYFRIEND. REVIEW OF SYSTEMS CONSTITUTIONAL: ANY RECENT FEVER NO . CHILLS NO . WEIGHT CHANGE OF UNKNOWN REASONS NO . GASTROENTEROLOGY: NEW UNEXPLAINABLE CHANGES IN BOWEL CONTROL NO . CONSTIPATION NO . GENITOURINARY: ANY NEW CHANGE IN BLADDER CONTROL? NO . NEUROLOGY: NEW ONSET DIZZINESS OR NEUROLOGICAL CHANGES NOT MENTIONED NO . NEW NUMBNESS OR PAIN PATTERNS NOT MENTIONED AND PERTINENT TO TODAY'S VISIT NO . CARDIOLOGY: NEW CHEST PRESSURE NO . PATIENT DENIES NO . RESPIRATORY: UNEXPLAINABLE COUGH NO . NEW SHORTNESS OF BREATH NO . VITAL SIGNS WT 228 LBS, HT 64 IN, BMI 39.13 INDEX, BP 119/76 MM HG, HR 62 /MIN, RR 18 /MIN, TEMP 96.5 F, OXYGEN SAT % 97%, SAFE IN ENV? (Y/N) YEST.JACKIE MA. EXAMINATION GENERAL EXAMINATION: GENERALAGITATED , AFFECT IS CONSTRICTED . PSYCHANXIOUS . LUNGS:CLEAR TO AUSCULTATION BILATERALLY, NO WHEEZES, RHONCHI, RALES. HEART:NO MURMURS, REGULAR RATE AND RHYTHM. LUMBAR:NO REDNESS OR SWELLING, NONTENDER . ASSESSMENTS SACROILIITIS - M46.1 (PRIMARY) TREATMENT SACROILIITIS NOTES: RECOMMEND HOME STRETCHING AND EXERCISE. REFUSING FORMAL PHYSICAL THERAPY AT THIS TIME. PROCEDURE CODES FA211 ESTABILISHED PATIENT [facility] CHARGE DISPOSITION & COMMUNICATION FOLLOW UP PATIENT WILL CALL FOR FOLLOW-UP (REASON: LOW BACK PAIN) ELECTRONICALLY SIGNED BY JANET OWENS ON 01/08/2021 AT 11:08 AM EST DISCLAIMER : THIS IS A VISIT SUMMARY EXTRACTED FROM THE [employer] CHART. IT IS NOT A COPY OF THE [employer] PROGRESS NOTE. AYUSH
== END ==
LOC: M PAIN 09:15
PROVIDERS: ATTEND Nurse Practitioner Family
DX: M46.1 Sacroiliitis, not elsewhere classified (principal); G25.81 Restless legs syndrome; G47.33 Obstructive sleep apnea (adult) (pediatric); Z98.84 Bariatric surgery status; Z86.59 Personal history of other mental and behavioral disorders; Z86.73 Personal history of transient ischemic attack (TIA), and cerebral infarction without residual deficits; Z79.82 Long term (current) use of aspirin; Z79.899 Other long term (current) drug therapy

== ENCOUNTER → 2021-01-11 | Outpatient (CLI) | payer MEDICARE, MEDICAID ==
[2021-01-11 09:11] LABS: BASO # 0.1 10^3/uL (0.0-0.2); BASO % 0.7 % (0.0-1.0); EOS # 0.2 10^3/uL (0.0-0.5); EOS % 2.7 % (0.0-3.0); HEMATOCRIT 38.7 % (36.0-47.0); HEMOGLOBIN 12.1 g/dl (12.0-15.5); LYMPH % 27.5 % (24.0-44.0); MEAN CORPUSCULAR HEMOGLOBIN 28.1 pg (27.0-33.0); MEAN CORPUSCULAR HGB CONC 31.3 g/dl (32.0-36.5); MONO # 0.5 10^3/uL (0.0-0.8); MONO % 7.2 % (2.0-8.0); NEUTROPHILS # 4.4 10^3/uL (1.5-8.5); NEUTROPHILS % 61.5 % (36.0-66.0); PLATELET COUNT, AUTOMATED 241 10^3/uL (150-450); WHITE BLOOD COUNT 7.1 10^3/uL (4.0-10.0)
[2021-01-11 09:37] LABS: BLOOD UREA NITROGEN 17 MG/DL (7-18); CALCIUM LEVEL 9.2 MG/DL (8.8-10.2); CARBON DIOXIDE LEVEL 28 MEQ/L (21-32); CHLORIDE LEVEL 110 MEQ/L (98-107); GLOMERULAR FILTRATION RATE > 60.0 (>45); GLUCOSE, FASTING 109 MG/DL (70-100); SODIUM LEVEL 143 MEQ/L (136-145)
== END ==
LOC: M LAB 08:41
PROVIDERS: ATTEND Internal Medicine Cardiovascular Disease
DX: Q21.1 Atrial septal defect (principal)

== ENCOUNTER → 2021-01-19 | Outpatient (CLI) | payer MEDICARE, MEDICAID | LOC: M LABSMTC 09:50 | PROVIDERS: ATTEND Internal Medicine Cardiovascular Disease | DX: Z11.52 Encounter for screening for COVID-19 (principal) ==

== ENCOUNTER 2021-02-05 16:22 | Emergency (ER) | payer MEDICARE, MEDICAID ==
[~2021-02-05] VITALS: Ht 162.6 cm; Wt 103.0 kg
[2021-02-05] MEDS ORDERED: CLOP75TA2 PO (16:38)
[2021-02-05] MEDS ORDERED: NS 1,000 ML IV SCH (18:34)
--- NOTE | 2021-02-05 19:07 | REP ---
INDICATION: Altered Mental Status. COMPARISON: Comparison chest x-ray November 04, 2020. TECHNIQUE: Portable upright AP chest radiograph. FINDINGS: The lungs are well inflated and free of infiltrate. Pleural angles are sharp. Heart size is normal. Pulmonary vasculature is not increased. Monitoring electrodes are noted overlying the chest and there is an orthopedic anchor in the proximal humerus on the right. IMPRESSION: No active disease. <Electronically signed by Hipolito Manzano > 02/05/21 [id number]
[2021-02-05 19:25] LABS: BASO % 0.7 % (0.0-1.0); EOS # 0.2 10^3/uL (0.0-0.5); HEMATOCRIT 41.6 % (36.0-47.0); LYMPH # 1.9 10^3/uL (1.5-5.0); LYMPH % 27.3 % (24.0-44.0); MEAN CORPUSCULAR HEMOGLOBIN 28.1 pg (27.0-33.0); MEAN CORPUSCULAR HGB CONC 31.3 g/dl (32.0-36.5); MEAN CORPUSCULAR VOLUME 89.8 fl (80.0-96.0); MONO # 0.5 10^3/uL (0.0-0.8); MONO % 6.9 % (2.0-8.0); NEUTROPHILS # 4.2 10^3/uL (1.5-8.5); NEUTROPHILS % 61.7 % (36.0-66.0); PLATELET COUNT, AUTOMATED 245 10^3/uL (150-450); RED BLOOD COUNT 4.63 10^6/uL (4.00-5.40); WHITE BLOOD COUNT 6.8 10^3/uL (4.0-10.0)
[2021-02-05 19:26] LABS: BASO # 0.1 10^3/uL (0.0-0.2)
[2021-02-05 20:07] LABS: ALT/SGPT 26 U/L (12-78); BILIRUBIN,DIRECT < 0.1 MG/DL (0.0-0.2); BILIRUBIN,TOTAL 0.4 MG/DL (0.2-1.0); BLOOD UREA NITROGEN 11 MG/DL (7-18); CALCIUM LEVEL 9.1 MG/DL (8.8-10.2); CARBON DIOXIDE LEVEL 30 MEQ/L (21-32); CHLORIDE LEVEL 111 MEQ/L (98-107); CK-MB VALUE MASS 1.2 NG/ML (<3.6); CPK CREATINE PHOSPHOKINASE 64 U/L (26-192); CREATININE FOR GFR 0.74 MG/DL (0.55-1.30); GLOMERULAR FILTRATION RATE > 60.0 (>45); GLUCOSE, FASTING 101 MG/DL (70-100); MB/CK RELATIVE INDEX 1.88 (< OR =4); POTASSIUM SERUM 3.8 MEQ/L (3.5-5.1); SALICYLATE LEVEL < 1.7 MG/DL (5.0-30.0); SODIUM LEVEL 144 MEQ/L (136-145); TROPONIN I < 0.02 NG/ML (< 0.10)
[2021-02-05 20:08] LABS: ACETAMINOPHEN LEVEL < 2.0 UG/ML (10.0-30.0)
--- NOTE | 2021-02-05 20:08 | ECGEPIP ---
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
[2021-02-05] MEDS ORDERED: ISOVUE-370 76% 100ML VIAL As Ordered ONE (20:10)
--- NOTE | 2021-02-05 20:43 | REPVR ---
PROCEDURE INFORMATION: Exam: CT Head Without Contrast Exam date and time: 02/05/2021 8:18 PM Age: 60 years old Clinical indication: Pain; Headache; Additional info: BELL TECHNIQUE: Imaging protocol: Computed tomography of the head without contrast. Radiation optimization: All CT scans at this facility use at least one of these dose optimization techniques: automated exposure control; mA and/or kV adjustment per patient size (includes targeted exams where dose is matched to clinical indication); or iterative reconstruction. COMPARISON: CT Head without contrast 11/04/2020 7:27 PM FINDINGS: Brain: Normal. No hemorrhage. Unremarkable white matter. No mass effect. Cerebral ventricles: No ventriculomegaly. Bones/joints: Unremarkable. No acute fracture. Paranasal sinuses: Visualized sinuses are unremarkable. No fluid levels. Mastoid air cells: Visualized mastoid air cells are well aerated. Soft tissues: Unremarkable. IMPRESSION: Negative noncontrast head CT. Electronically signed by: Julio Cesar Charles On 02/05/2021 20:43:28 PM
--- NOTE | 2021-02-05 20:46 | REPVR ---
PROCEDURE INFORMATION: Exam: CT Angiography Head With Contrast Exam date and time: 02/05/2021 8:18 PM Age: 60 years old Clinical indication: Pain; Headache; Additional info: BELL vision changes TECHNIQUE: Imaging protocol: Computed tomography angiography of the head with intravenous contrast. 3D rendering (Not supervised by radiologist): MIP and/or 3D reconstructed images were created by the technologist. Radiation optimization: All CT scans at this facility use at least one of these dose optimization techniques: automated exposure control; mA and/or kV adjustment per patient size (includes targeted exams where dose is matched to clinical indication); or iterative reconstruction. Contrast material: ISOVUE 370; Contrast volume: 75 ml; Contrast route: INTRAVENOUS (IV); COMPARISON: CT ANGIO HEAD 11/04/2020 9:09 PM FINDINGS: ANTERIOR CIRCULATION: Right internal carotid artery: Unremarkable. Intracranial segment is patent with no significant stenosis. No aneurysm. Right middle cerebral artery: Unremarkable. No occlusion or significant stenosis. No aneurysm. Right anterior cerebral artery: Unremarkable. No occlusion or significant stenosis. No aneurysm. Left internal carotid artery: Unremarkable. Intracranial segment is patent with no significant stenosis. No aneurysm. Left middle cerebral artery: Unremarkable. No occlusion or significant stenosis. No aneurysm. Left anterior cerebral artery: Unremarkable. No occlusion or significant stenosis. No aneurysm. POSTERIOR CIRCULATION: Right vertebral artery: Unremarkable. No occlusion or significant stenosis. No aneurysm. Left vertebral artery: Unremarkable. No occlusion or significant stenosis. No aneurysm. Basilar artery: Unremarkable. No occlusion or significant stenosis. No aneurysm. Right posterior cerebral artery: Large patent right posterior communicating artery which is dominant supply to the right posterior cerebral artery which is otherwise unremarkable. Left posterior cerebral artery: Large patent left posterior communicating artery which is dominant supply to the left posterior cerebral artery which is otherwise unremarkable. Brain: No definite mass, mass effect, or midline shift. Cerebral ventricles: No ventriculomegaly. Bones/joints: Unremarkable. No acute fracture. Soft tissues: Unremarkable. IMPRESSION: Negative CTA head. No significant stenosis and no occlusion. Electronically signed by: Julio Cesar Charles On 02/05/2021 20:46:02 PM
[2021-02-05 21:15] VITALS: BP 118/56
== END 2021-02-05 21:31 | disposition home or self-care (01) ==
LOC: M ED 16:22
DX: R53.83 Other fatigue (principal); R53.81 Other malaise; I10 Essential (primary) hypertension; Z98.84 Bariatric surgery status; G47.33 Obstructive sleep apnea (adult) (pediatric); F41.9 Anxiety disorder, unspecified; F33.9 Major depressive disorder, recurrent, unspecified; Z79.82 Long term (current) use of aspirin; Z79.899 Other long term (current) drug therapy
CPT/HCPCS: 70450; 70496; 71045; 80048; 80076; 80143; 82550; 82553; 84443; 84484; 85025; 93005; 93041; 94760; 96360; 96361; 99285; Q9967

== ENCOUNTER 2021-02-06 10:27 | Outpatient (RCR) | payer MEDICARE, MEDICAID ==
[~2021-02-06 10:27] MED LIST changes: +CLOP75TA2 PO
== END 2021-02-07 | disposition home or self-care (01) ==
LOC: M PT 10:27
PROVIDERS: ATTEND Psychiatry & Neurology Neurology
DX: R53.1 Weakness (principal)

== ENCOUNTER 2021-03-08 09:58 | Outpatient (RCR) | payer MEDICARE, MEDICAID | END 2021-03-09 | LOC: M PT 09:58 | PROVIDERS: ATTEND Psychiatry & Neurology Neurology | DX: R53.1 Weakness (principal) ==

== ENCOUNTER 2021-04-03 13:45 | Outpatient (RCR) | payer MEDICARE, MEDICAID | END 2021-04-09 | LOC: M PT 13:45 | PROVIDERS: ATTEND Psychiatry & Neurology Neurology | DX: M62.81 Muscle weakness (generalized) (principal) ==

== ENCOUNTER 2021-04-10 11:45 | Outpatient (RCR) | payer MEDICARE, MEDICAID ==
[2021-04-22] MEDS ORDERED: TESS100C PO (12:13)
[2021-04-22] MEDS ORDERED: MUCI600T31 PO (12:13)
[2021-04-22] MEDS ORDERED: FLON1SPR NARES (12:13)
[2021-04-22] MEDS ORDERED: CETI10CA2 PO (12:13)
== END 2021-05-09 ==
LOC: M PT 11:45
PROVIDERS: ATTEND Psychiatry & Neurology Neurology
DX: M62.81 Muscle weakness (generalized) (principal)

== ENCOUNTER → 2021-04-17 | Outpatient (CLI) | payer MEDICARE, MEDICAID ==
--- NOTE | 2021-04-19 00:07 | ECWPNPC ---
PATIENT NAME: CHRISTAL HARRIS : 1960 GENDER: FEMALE VISIT DATE: 04/17/2021 DISCHARGE DATE: 04/17/21 1559 VISIT LOCKED DATE TIME: PHYSICIAN: ANDREIA WALDROP RESOURCE: ANDREIA WALDROP REASON FOR APPOINTMENT 1. LEFT HIP HISTORY OF PRESENT ILLNESS GENERAL: HERE FOR FOLLOW-UP OF CHRONIC LOW BACK PAIN. PAIN IS LOCATED ACROSS LOWER BACK. PAIN IS AGGRAVATED LATELY. STARTED ON PLAVIX IN JANUARY. REVIEWED MRI OF THE LS-SPINE AND DISCUSSED TREATMENT PLAN. -. FALL RISK SCREENING: SCREENING : NO FALLS REPORTED IN THE LAST YEAR. PAIN SCREENING: PATIENT HAS A COMPLAINT OF ACUTE OR CHRONIC PAIN :YES LOCATION OF PAIN:LOW BACK, THIGH(S) INTENSITY OF PAIN (SCALE OF 1 TO 10):9 WHAT DOES YOUR PAIN FEEL LIKE:CONTINOUS, TENDER, SHARP, STABBING, BURNING DURATION:CONTINOUS NURSING NOTE: -. PAIN CENTER INTAKE QUESTIONS: DO YOU HAVE A HISTORY OF MRSA? :NO DO YOU TAKE A BLOOD THINNERS? :YES PLAVIX DO YOU HAVE ANY BLEEDING DISORDERS? :NO ANY NEW NUMBNESS OR WEAKNESS IN YOUR LEGS OR ARMS? :YES LEFT FOOT NUMBNESS IMPROVED S/P INJECTION BUT IS RETURNING ANY PACEMAKER,DEFIBRILLATOR, OR DORSAL COLUMN STIMULATOR? :NO DO YOU HAVE ANY RASHES OR OPEN SORES? :NO ARE YOU ALLERGIC TO IV DYE? :NO ARE YOU DIABETIC? :NO ANY NEW PROBLEMS WITH YOUR MEDICATIONS? :NO HAVE YOU RECEIVED A VACCINE IN THE PAST 30 DAYS? :YES IF SO WHAT VACCINE AND WHEN? SHINGLES DO YOU PLAN TO RECEIVE A VACCINE IN THE NEXT 21 DAYS? :NO DO YOU NEED ANY PRESCRIPTION? :YES GABAPENTIN DO YOU TAKE ANY IMMUNOSUPPRESSIVE MEDICATIONS? :NO IS THERE A CHANCE YOU COULD BE ? :NO ARE YOU BREAST FEEDING? :NO CURRENT MEDICATIONS TAKING CRESTOR 10 MG TABLET 1 TABLET ORALLY ONCE A DAY TAKING BUSPIRONE HCL 10 MG TABLET 1 TABLET ORALLY BID TAKING OMEPRAZOLE 40 MG CAPSULE DELAYED RELEASE 1 CAPSULE ORALLY BID TAKING CALCIUM + D3 600-200 MG-UNIT TABLET 1 TABLET WITH A MEAL ORALLY ONCE A DAY TAKING MULTIVITAMIN ADULTS - TABLET DIRECTED ORALLY TAKING LISINOPRIL 10 MG TABLET 1 TABLET ORALLY ONCE A DAY TAKING MAY HAVE - - IRON INFUSIONS INTRAVENOUSLY Q 6 MOS TAKING GABAPENTIN 300 MG TABLET 1 CAPSULE ORALLY FOR PAIN Q8H TID TAKING BABY ASPIRIN 1 TABLET DAILY TAKING TRINTELLIX 10 MG TABLET 1 TABLET ORALLY ONCE A DAY TAKING PLAVIX 75 MG TABLET 1 TABLET ORALLY ONCE A DAY NOT-TAKING VIIBRYD 40 MG TABLET 1 CAP ORALLY DAILY NOT-TAKING VOLTAREN 1 % GEL DIRECTED TRANSDERMAL NOT-TAKING VITAMIN B12 TR 2000 MCG TABLET EXTENDED RELEASE 1 TABLET ORALLY ONCE A DAY NOT-TAKING VITAMIN B1 100 MG TABLET 1 TABLET ORALLY ONCE A DAY NOT-TAKING IBUPROFEN 800 MG TABLET 1 TABLET WITH FOOD OR MILK NEEDED ORALLY BID PRN NOT-TAKING FUROSEMIDE 40 MG TABLET 1 TABLET ORALLY ONCE A DAY NOT-TAKING ROPINIROLE HCL 1 MG TABLET 1 1/2 TABS ORALLY BID NOT-TAKING METHYLPREDNISOLONE (DREW) 4MG USE DIRECTED X 6 DAYS NOT-TAKING PANTOPRAZOLE SODIUM 40 MG TABLET DELAYED RELEASE 1 TABLET ORALLY ONCE A DAY NOT-TAKING VITAMIN D (ERGOCALCIFEROL) 45092 UNIT CAPSULE 1 CAPSULE ORALLY NOT-TAKING GABAPENTIN 100 MG CAPSULE 1 CAPSULE ORALLY ONCE DAILY NEEDED MEDICATION LIST REVIEWED AND RECONCILED WITH THE PATIENT PAST MEDICAL HISTORY HTN ANEMIA OBESITY S/P GASTRIC BYPASS HISTORY OF FLUID RETENTION BLADDER MESH DEGENERATIVE DISC DISEASE RESTLESS LEG SYNDROME DEPRESSION ANXIETY LOW BACK AND LEFT HIP PAIN RADIATING DOWN LEFT LEG TO FOOT KING CYST BILATERAL LAURITA BILATERAL CARPAL TUNNEL BILATERAL LEG WEAKNESS AND PARESTHESIAS AROUND THE KNEE SWELLING IN FEET STROKE 11/04/20 ALLERGIES N.K.D.A. SURGICAL HISTORY GASTRIC BYPASS 04/27/2008 BREAST REDUCTION 07/05/15 ROTATOR CUFF LEFT 2014 BLADDER REPAIR 1991,05/2003 HEMMORIOD REMOVAL 2014 HYSTERECTOMY 02/1995 GALLBLADDER REMOVED 02/1995 TONSILS REMOVED 1981 JACKELIN REMOVED FROM LEFT SIDE OF FACE 1970 COLON RESECTION FOR COLON CA 2016 RIGHT ROTATOR CUFF REPAIR AND RIGHT BICEP REPAIR 09/2019 FAMILY HISTORY FATHER: , DEPRESSION ,CHF, DIAGNOSED WITH HYPERTENSION, DIABETES, OTHER MALIGNANT NEOPLASM OF UNSPECIFIED SITE, OTHER SPECIFIED CONDITIONS INFLUENCING HEALTH STATUS MOTHER: , RETUM CANCER, OTHER MALIGNANT NEOPLASM OF UNSPECIFIED SITE SIBLINGS: ALIVE, HYPERLIPIDEMIA,HTN,ASTHMA,DEPRESSION 2 SISTER(S) . 2DAUGHTER(S) - HEALTHY. DAD-SKIN CA, HIGH CHOLESTEROL, ? ASTHMA\\NMOM-RECTAL CA\\NSISTER-ASHTMA, DISABLED DUE TO SPINAL CORD INJURY, LUNG CA. HOSPITALIZATION/MAJOR DIAGNOSTIC PROCEDURE SURGERY RELATED "MICRO STROKE" 11/04/20 REVIEW OF SYSTEMS CONSTITUTIONAL: ANY RECENT FEVER NO . CHILLS NO . WEIGHT CHANGE OF UNKNOWN REASONS NO . GASTROENTEROLOGY: NEW UNEXPLAINABLE CHANGES IN BOWEL CONTROL NO . CONSTIPATION NO . GENITOURINARY: ANY NEW CHANGE IN BLADDER CONTROL? NO . NEUROLOGY: NEW ONSET DIZZINESS OR NEUROLOGICAL CHANGES NOT MENTIONED NO . NEW NUMBNESS OR PAIN PATTERNS NOT MENTIONED AND PERTINENT TO TODAY'S VISIT NO . CARDIOLOGY: NEW CHEST PRESSURE NO . PATIENT DENIES NO . RESPIRATORY: UNEXPLAINABLE COUGH NO . NEW SHORTNESS OF BREATH NO . VITAL SIGNS WT 226.2 LBS, HT 64 IN, BMI 38.82 INDEX, BP 151/84 MM HG, HR 84 /MIN, RR 18 /MIN, TEMP 97.0 F, OXYGEN SAT % 98%, SAFE IN ENV? (Y/N) YES, NA INITIALS AW 1458, REVIEWED BY: KG. EXAMINATION GENERAL EXAMINATION: GENERAL AWAKE,ALERT ,PLEAASANT . PSYCH AFFECT NORMAL . LUNGS: LUNG DILLARD ARE CLEAR TO AUSCULTATION BILATERALLY. GOOD MOVEMENT OF AIR . HEART: S1, S2 IN A REGULAR RATE AND RHYTHM. NO SIGNIFICANT MURMURS, RUBS OR GALLOPS NOTED . MUSCULOSKELETAL: MUSCLE STRENGTH TESTING 4/5 BILATERAL LOWER EXTREMITIES. LUMBAR: TRIGGER POINTS:, ELICITED WITH PALPATION OVER LUMBAR PARAVERTEBRAL MUSCLES.PAIN IS AGGREVATED IN THIS REGION WITH ROJM OF SPINE.. ASSESSMENTS MYALGIA, OTHER SITE - M79.18 (PRIMARY) TREATMENT MYALGIA, OTHER SITE [facility] MRI SPINE, L.S. WITHOUT [id number] MEDICATION: VALIUM TAB 5MG ORALLY (DIAZEPAM) (ORDERED FOR 04/25/2021) MED: PAIN NORCO TABLET 5MG/325MG ORALLY HYDROCODONE/ACETAMINOPHEN (ORDERED FOR 04/25/2021) NOTES: TRIGGER POINT INJECTIONS BILATERAL LOW BACK. OTHERS NOTES: TRIGGER POINT INJECTION MATERIAL WAS PRINTED. DISPOSITION & COMMUNICATION FOLLOW UP POST (REASON: TRIGGER POINT INJECTIONS BILATERAL LOW BACK) ELECTRONICALLY SIGNED BY JANET OWENS ON 04/18/2021 AT 12:38 PM EDT DISCLAIMER : THIS IS A VISIT SUMMARY EXTRACTED FROM THE [employer] CHART. IT IS NOT A COPY OF THE [employer] PROGRESS NOTE. AYUSH
== END ==
LOC: M PAIN 14:45
PROVIDERS: ATTEND Nurse Practitioner Family
DX: M79.18 Myalgia, other site (principal); G25.81 Restless legs syndrome; G47.33 Obstructive sleep apnea (adult) (pediatric); Z86.59 Personal history of other mental and behavioral disorders; Z98.84 Bariatric surgery status; Z79.01 Long term (current) use of anticoagulants; Z79.82 Long term (current) use of aspirin; Z79.899 Other long term (current) drug therapy

== ENCOUNTER 2021-04-22 10:04 | Emergency (ER) | payer MEDICARE, MEDICAID ==
[~2021-04-22] VITALS: Ht 162.6 cm; Wt 102.2 kg
--- NOTE | 2021-04-22 10:50 | REP ---
INDICATION: cough. COMPARISON: Comparison chest x-ray February 05, 2021. TECHNIQUE: Two views.. FINDINGS: The lungs are well inflated and free of infiltrate. The pleural angles are sharp. The heart size is normal. Pulmonary vasculature is not increased. No significant bony abnormality is seen. There is an intracardiac atrial or ventricular septal defect closure device is visible unchanged. There are clips in the upper abdomen. There are subcortical cysts in the humeral heads bilaterally and a surgical fixation device is seen in the proximal humerus on the right unchanged. No acute bony abnormality. IMPRESSION: No active disease.. <Electronically signed by Hipolito Manzano > 04/22/21 [id number]
[2021-04-22] MEDS ORDERED: TESS100C PO (12:13)
[2021-04-22] MEDS ORDERED: MUCI600T31 PO (12:13)
[2021-04-22] MEDS ORDERED: CETI10CA2 PO (12:13)
[2021-04-22] MEDS ORDERED: FLON1SPR NARES (12:13)
[2021-04-22 12:23] VITALS: BP 139/91
== END 2021-04-22 12:41 | disposition home or self-care (01) ==
LOC: M ED 10:04
DX: J20.9 Acute bronchitis, unspecified (principal); I10 Essential (primary) hypertension; Z98.84 Bariatric surgery status

== ENCOUNTER → 2021-05-12 | Outpatient (CLI) | payer MEDICARE, MEDICAID ==
[~2021-05-12] MED LIST changes: +CETI10CA2 PO; +FLON1SPR NARES; +MUCI600T31 PO; +TESS100C PO
== END ==
LOC: M LABSMTC 09:31
PROVIDERS: ATTEND Anesthesiology
DX: Z01.818 Encounter for other preprocedural examination (principal); Z11.52 Encounter for screening for COVID-19

== ENCOUNTER → 2021-05-16 | Outpatient (CLI) | payer MEDICARE, MEDICAID ==
[~2021-05-16] MED LIST changes: +BRIN1TAB3 PO; +DOXY-443 PO; -OMEP-221 PO; +OMEP40CA5 PO
== END ==
LOC: M WHC 15:36
PROVIDERS: ATTEND Family Medicine
DX: R92.8 Other abnormal and inconclusive findings on diagnostic imaging of breast (principal); N63.25 Unspecified lump in the left breast, overlapping quadrants

== ENCOUNTER → 2021-05-17 | Outpatient (CLI) | payer MEDICARE, MEDICAID ==
[~2021-05-17] MED LIST changes: -BRIN1TAB3 PO; +BUPIVACAINE HCL 0.25% 10ML VIAL As Ordered ONE; +BUPIVACAINE HCL 0.25% 30ML VIAL As Ordered ONE; -DOXY-443 PO; +NORCO, ANEXSIA 5/325MG TABLET (HYDROcodone/ACETAMINOPHEN) As Ordered ONE; +OMEP-221 PO; -OMEP40CA5 PO; +TRIAMCINOLONE ACETONIDE SUSP 40 MG/ML VIAL (J3301) As Ordered ONE; +diazePAM 5MG TABLET As Ordered ONE
--- NOTE | 2021-05-19 02:39 | ECWPNPC ---
PATIENT NAME: CHRISTAL HARRIS : 1960 GENDER: FEMALE VISIT DATE: 05/17/2021 DISCHARGE DATE: 05/17/21 1004 VISIT LOCKED DATE TIME: PHYSICIAN: JARAD SIMMS MD PHYSICIAN PAGER NO: ACTIVE RESOURCE: JARAD SIMMS MD REASON FOR APPOINTMENT 1. TRIGGER POINT INJECTIONS BILATERAL LOW BACK HISTORY OF PRESENT ILLNESS GENERAL: -. FALL RISK SCREENING: SCREENING : PATIENT REPORTS 2 FALLS THIS YEAR, RESULTING IN BROKEN TOE, PATIENT REPORTS FOOT PROBLEMS POSSIBLY RELATED TO FALL.. PAIN SCREENING: PATIENT HAS A COMPLAINT OF ACUTE OR CHRONIC PAIN :YES LOCATION OF PAIN:LOW BACK INTENSITY OF PAIN (SCALE OF 1 TO 10):5 WHAT DOES YOUR PAIN FEEL LIKE:BURNING, SHARP DURATION:STEADY, AWAKENS FROM SLEEP PAIN IS INCREASED BY:ACTIVITIES, PROLONGED STANDING PAIN IS DECREASED BY:USE OF PAIN MEDICATIONS PLAN/GOALS/TREATMENT/INTERVENTION/FOLLOW UP:SEE PLAN NURSING NOTE: -. PAIN CENTER INTAKE QUESTIONS: DO YOU HAVE A HISTORY OF MRSA? :NO DO YOU TAKE A BLOOD THINNERS? :YES PLAVIX DO YOU HAVE ANY BLEEDING DISORDERS? :NO ANY NEW NUMBNESS OR WEAKNESS IN YOUR LEGS OR ARMS? :NO ANY PACEMAKER,DEFIBRILLATOR, OR DORSAL COLUMN STIMULATOR? :NO DO YOU HAVE ANY RASHES OR OPEN SORES? :NO ARE YOU ALLERGIC TO IV DYE? :NO ARE YOU DIABETIC? :NO ANY NEW PROBLEMS WITH YOUR MEDICATIONS? :NO HAVE YOU RECEIVED A VACCINE IN THE PAST 30 DAYS? :NO DO YOU PLAN TO RECEIVE A VACCINE IN THE NEXT 21 DAYS? :NO DO YOU TAKE ANY IMMUNOSUPPRESSIVE MEDICATIONS? :NO ANY HISTORY OF SEIZURES? :NO ANY HISTORY OF CARDIAC ISSUES OR EVENTS? :YES "HOLE IN HEART" HAS CARDIOLOGY CLEARANCE DO YOU HAVE ANY KIDNEY OR LIVER DISEASE? :NO DO YOU HAVE SLEEP APNEA? :YES DO YOU WEAR A CPAP?YES ANY RECENT HEAD INJURY? :NO DO YOU HAVE ANY NEW INFECTIONS? :NO IS THERE A CHANCE YOU COULD BE ? :NO ARE YOU BREAST FEEDING? :NO WHEN DID YOU LAST EAT? : 05/17/2199 WHEN DID YOU LAST DRINK? : 05/17/2199 WHAT DID YOU LAST DRINK? : WATER NAME OF PERSON DRIVING YOU HOME? : MORAIMA DO YOU HAVE ANY OTHER QUESTIONS OR CONCERNS? : NO CURRENT MEDICATIONS TAKING AMOXICILLIN 500 MG CAPSULE 4 TABS PRIOR TO DENTAL APPOINTMENTS ORALLY EVERY 8 HRS, NOTES: NOT APPLICABLE TO THIS PROCEDURE TAKING LISINOPRIL 10 MG TABLET 1 TABLET ORALLY ONCE A DAY, NOTES: 05/16/21 TAKING CALCIUM + D3 600-200 MG-UNIT TABLET 1 TABLET WITH A MEAL ORALLY ONCE A DAY TAKING MULTIVITAMIN ADULTS - TABLET DIRECTED ORALLY TAKING MAY HAVE - - IRON INFUSIONS INTRAVENOUSLY Q 6 MOS, NOTES: 05/2020 TAKING TRINTELLIX 20 MG TABLET 1 TABLET ORALLY ONCE A DAY TAKING BUSPIRONE HCL 10 MG TABLET 1 TABLET ORALLY BID TAKING CRESTOR 10 MG TABLET 1 TABLET ORALLY ONCE A DAY TAKING OMEPRAZOLE 40 MG CAPSULE DELAYED RELEASE 1 CAPSULE ORALLY BID TAKING PLAVIX 75 MG TABLET 1 TABLET ORALLY ONCE A DAY, NOTES: 05/16/21 TAKING ASPIRIN 81 MG TABLET DELAYED RELEASE 1 TABLET ORALLY ONCE A DAY TAKING GABAPENTIN 300 MG TABLET 1 CAPSULE ORALLY FOR PAIN Q8H TID, NOTES: 05/16/21 MEDICATION LIST REVIEWED AND RECONCILED WITH THE PATIENT PAST MEDICAL HISTORY HTN HX ANEMIA WITH IRON DEFICENCY - DR. CARRILLO OBESITY S/P GASTRIC BYPASS DEGENERATIVE DISC DISEASE, CHRONIC LOW BACK PAIN, BILATERAL SCIATICA AND RADICULOPATHY - [facility] PAIN DEPRESSION AND ANXIETY - [facility] [place] - USES CPAP NIGHTLY; DR. Mariana BEDOYA NEUROPATHY IN LEFT LEG - DR. Damaris BEDOYA STROKE 11/04/20 HX FIGUEREDO'S ESOPHAGUS - DR. WATKINS HX COLON CANCER - DR. WATKINS MONITORS WITH COLONOSCOPY Q2H HX RLS, RESOLVED "HOLD IN HEART" - DR. ESPINOSA, DR. PALAFOX ([facility]) HISTORY OF BILATERAL ROTATOR CUFF REPAIRS - SAW [facility] IN THE PAST HLD ALLERGIES N.K.D.A. SURGICAL HISTORY JACKELIN REMOVED FROM LEFT SIDE OF FACE 1970 TONSILLECTOMY 1981 HYSTERECTOMY FOR MENORRHAGIA 02/1995 CHOLECYSTECTOMY 02/1995 BLADDER REPAIR 1991, 05/2003 GASTRIC BYPASS 04/2008 LEFT ROTATOR CUFF SURGERY 2014 HEMORRHOIDECTOMY 2015 BREAST REDUCTION 06/2015 COLON RESECTION FOR COLON CA 2017 RIGHT ROTATOR CUFF REPAIR AND RIGHT BICEP REPAIR 09/2019 SILICONE PLUG PLACED IN HEART 01/2021 UPPER ENDOSCOPY - NORMAL, DR. WATKINS 12/2020 COLONOSCOPY - NORMAL, REPEAT IN 2 YEARS; DR. WATKINS 12/2020 SOCIAL HISTORY GENERAL: TOBACCO USE ARE YOU A:NONSMOKER LATEX QUESTIONNAIRE LATEX ALLERGY : HAVE YOU EVER DEVELOPED ANY TYPE OF REACTION AFTER HANDLING LATEX PRODUCTS SUCH RUBBER GLOVES, CONDOMS, DIAPHRAGMS, BALLOONS, SOCKS, OR UNDERWEAR?NO LATEX ALLERGY : HAVE YOU EVER DEVELOPED ANY TYPE OF REACTION DURING OR AFTER DENTAL APPOINTMENT, VAGINAL/RECTAL EXAMINATION, SURGICAL PROCEDURE, OR ANY OTHER EXPOSURE?NO LATEX RISK : HAVE YOU EVER HAD ANY DIFFICULTY BREATHING OR HIVES AFTER EATING OR HANDLING ANY FRUITS, OR VEGETABLES; SUCH KIWI, BANANAS, STONE FRUITS, OR CHESTNUTSNO LATEX RISK : DO YOU HAVE A PREVIOUS PERSONAL HISTORY OF MORE THAN NINE SURGERIES, SPINA BIFIDA, OR REPEATED CATHERIZATIONS? YES - PLEASE INDICATE : > 9 SURGERIES LATEX RISK : ARE YOU FREQUENTLY EXPOSED TO LATEX PRODUCTS IN YOUR OCCUPATION?NO DATE ASKED : 05/16/2021 ALCOHOL USE: NO. LUNG CANCER SCREENING SMOKING STATUS:NON SMOKER ALCOHOL SCREENING DID YOU HAVE A DRINK CONTAINING ALCOHOL IN THE PAST YEAR?NO POINTS0 INTERPRETATIONNEGATIVE RECREATIONAL DRUG USE DRUG USE?NO CAFFEINE CAFFEINE USE?YES 4 CUPS OF COFFEE A DAY SEXUAL HX HAD SEX IN THE LAST 12 MONTHS (VAGINAL, ORAL, OR ANAL)?: NO, HAVE YOU EVER HAD AN STD?: NO. HIV / HEP-C SCREENING HIV TEST OFFERED TO PATIENT:YES DATE OFFERED:04/19/2021 TEST ACCEPTED:NO REASON:PATIENT DECLINED BROCHURE PROVIDED TO PATIENTYES HINDUISM [id number] [employer] MONTENEGRIN. EDUCATION LEVEL OF EDUCATION:FINISHED COL[employer] DEGREE LEARNING BARRIERS / SPECIAL NEEDS CHANGE FROM LAST VISIT?YES BARRIERS TO LEARNING?NO HEARING IMPAIRED?NO VISION IMPAIRED?NO COGNITIVELY IMPAIRED?NO READINESS TO LEARN?YES LEARNING PREFERENCES?YES :DEMONSTRATION/VERBAL INSTRUCTION LEARNING CAPABILITIES PRESENT?YES EMOTIONAL BARRIERS?NO SPECIAL DEVICES?YES : CPAP SEO SPECIALIST NEEDED?NO DOMESTIC VIOLENCE NONE. OCCUPATION: [employer]. DIET: REGULAR. EXERCISE: WALKS. MARITAL STATUS: .. OTHERS AT HOME: BOYFRIEND. HOSPITALIZATION/MAJOR DIAGNOSTIC PROCEDURE SURGERY RELATED "MICRO STROKE" 11/04/20 VITAL SIGNS WT 223 LBS, HT 64 IN, BMI 38.27 INDEX, BP 134/75 MM HG, HR 66 /MIN, RR 16 /MIN, TEMP 98.2 F, OXYGEN SAT % 96, SAFE IN ENV? (Y/N) Y, REVIEWED BY: MEDHAT. EXAMINATION GENERAL: A HISTORY AND PHYSICAL EXAM ON THE PATIENT WAS DONE ON 04/17/2021(DATE OF ORIGINAL ASSESSMENT) IN PREPARATION OF SURGERY/PROCEDURE. I HAVE NOW REASSESSED THIS PATIENT'S HEALTH STATUS AND PERFORMED AN UPDATED EXAM TODAY. ALL CHANGES IN THE PATIENT'S HISTORY, PHYSICAL EXAM, PRE-EXISTING CONDITONS, AND INDICATIONS/CONTRAINDICATIONS TO THE PLANNED PROCEDURE AND ANESTHESIA ARE DOCUMENTED AND EVALUATED BELOW. I ATTEST TO THE ADEQUACY AND APPROPRIATENESS OF MY ASSESSMENT, AND CONFIRM THE NECESSITY FOR THE PLANNED PROCEDURE. THE PATIENT IS ALERT, ORIENTED TIMES THREE AND COOPERATIVE. LUNGS ARE CLEAR TO AUSCULTATION. HEART SHOWS REGULAR RHYTHM, NO MURMURS AND NO GALLOPS. ASSESSMENTS MYALGIA, OTHER SITE - M79.18 (PRIMARY) TREATMENT MYALGIA, OTHER SITE COMPLETION OF PROCEDURAL VISIT WHEN MEETS CRITERIAERICA MEANS 05/17/2021 10:07:30 AM > CRITERIA MET MEDICATION: PAIN VALIUM TAB 5MG ORALLY (DIAZEPAM)BERNARD PALOMARES 05/17/2021 8:51:53 AM > VERIFIED. ERICA MEANS 05/17/2021 9:00:15 AM > ADMINISTERED MED: PAIN NORCO TABLET 5MG/325MG ORALLY HYDROCODONE/ACETAMINOPHENBERNARD PALOMARES 05/17/2021 8:51:41 AM > VERIFIED. ERICA MEANS 05/17/2021 9:00:31 AM > ADMINISTERED OTHERS NOTES: 05/16/21 1621 PAT COMPLETED. Gladys PALOMARES PROCESS TANK TENDER. PROCEDURES PAIN NURSING RECORD PROCEDURE IN ROOM 0840, PHYSICIAN IN ROOM 0945, START 0949, FINISH 0953, PHYSICIAN OUT OF ROOM 0954, OUT OF ROOM 1005, ECG N/A, PATIENT SHIELDED N/A, SAFETY STRAP N/A, PREP ALCOHOL DR. SIMMS, DRESSING TEGADERM Felix MEANS RN LOC: 1. ALERT, ORIENTED, ERICA MEANS 05/17/2021 9:50:07 AM > RESP: 1. REGULAR, NO DYSPNEA, ERICA MEANS 05/17/2021 9:50:11 AM > COLOR: 1. PINKMIGUELANGEL ELIZABETH 05/17/2021 9:50:14 AM > SKIN: 1. WARM, DRY, ERICA MEANS 05/17/2021 9:50:19 AM > POSITION: 5. SITTING, ERICA MEANS 05/17/2021 9:11:48 AM > VITALS: 152/86, 67, 16, 100%, ERICA MEANS 05/17/2021 10:03:44 AM > NOTES Felix MEANS RN, ERICA MEANS 05/17/2021 9:11:55 AM > COMPLETION OF PROCEDURE APPOINTMENT: POST PAIN 0, DRESSING SITE DRY AND INTACT, IV N/A, GAIT STEADY, TEACHING COMPLETED, PATIENT ACKNOWLEDGES UNDERSTANDING YES, PROCEDURE APPOINTMENT COMPLETED AT 1006 PN TRIGGER POINT INJECTION WITH STEROIDS PRE PROCEDURE DIAGNOSIS 1. MYALGIA 2. PAIN AT BILATERAL LOW BACK AREA POST PROCEDURE DIAGNOSIS 1. MYALGIA 2. PAIN AT BILATERAL LOW BACK AREA PROCEDURE TRIGGER POINT INJECTION AT BILATERAL LOW BACK AREA SURGEON DR. JARAD SIMMS [employer] SYSTEM ADMINISTRATOR NONE ANESTHESIA LOCAL PRE PROCEDURE NOTE THE PATIENT HAS A HISTORY OF CHRONIC PAIN AT THE RIGHT AND LEFT LOW BACK AREA. I EVALUATED THE PATIENT AND REVIEWED THE CHART. THERE IS EVIDENCE OF BANDS OF TISSUE WITH RESTRICTION OF MOVEMENT AND PRESENCE OF TRIGGER POINT AT THE RIGHT AND LEFT LOW BACK AREA. I WENT OVER THE RISKS, ALTERNATIVES, AND BENEFITS ASSOCIATED WITH THIS PROCEDURE. THE PATIENT WOULD LIKE TO PROCEED AND GIVE CONSENT TO PERFORMED THE PROCEDURE. THE PATIENT DENIES UNEXPLAINABLE WEIGHT LOSS, FEVER, CHILLS, OR NEW CHANGES IN URINARY OR BOWEL CONTROL. THE PATIENT IS COVID-19 NEGATIVE DESCRIPTION OF PROCEDURE THE PATIENT WAS BROUGHT TO THE PROCEDURE ROOM AND PLACED IN THE SITTING POSITION. THE AREA WAS CLEANED WITH ALCOHOL. THE PROCEDURE WAS DONE USING ASEPTIC STERILE TECHNIQUE. A TIMEOUT WAS PERFORMED WHERE THE CONSENTED SITE WAS VERIFIED WITH EVERYONE IN THE ROOM. USING A 25-GAUGE NEEDLE, TRIGGER POINTS WERE INJECTED AT THE RIGHT AND LEFT LOW BACK AREA WITH A TOTAL OF 40 ML OF BUPIVACAINE 0.25% AND KENALOG 40 MG. THE MEDICATIONS WERE VERIFIED WITH THE NURSE. THERE WAS NO EVIDENCE OF BLOOD OR PARESTHESIA DURING THE PROCEDURE. THE PATIENT WAS SENT TO THE RECOVERY ROOM. THE PATIENT WAS MOVING THE EXTREMITIES AND DOING WELL. THERE WERE NO COMPLICATIONS DURING THE PROCEDURE. ESTIMATED BLOOD LOSS WAS LESS THAN 5 ML POST PROCEDURE NOTE THE PROCEDURE DONE WAS DISCUSSED WITH THE PATIENT. THE PATIENT WILL BE SEEN IN A FOLLOW UP IN THE NEXT FEW WEEKS. I AM LOOKING FOR LONG LASTING PAIN RELIEF FOR THE PATIENT WITH THIS INTERVENTION. INSTRUCTIONS WERE GIVEN, QUESTIONS WERE ANSWERED, AND THE PATIENT EXPRESSED UNDERSTANDING AND AGREES WITH THE PLAN. I, SHARRI GARCIA, DOCUMENTED THE ABOVE INFORMATION ACTING A SCRIBE FOR DR. SIMMS. I HAVE REVIEWED THE ABOVE DOCUMENT, WRITTEN BY SHARRI GARCIA, INDUSTRIAL TRUCK OPERATOR, AND I VERIFY THAT IT IS ACCURATE PROCEDURE CODES 28350 INJ TRIGGER POINT / MUSCL DISPOSITION & COMMUNICATION FOLLOW UP FOLLOW UP WITH OPERATING ROOM SURGICAL TECHNICIAN (REASON: POST TRIGGER POINT INJECTIONS BILATERAL LOW BACK) ELECTRONICALLY SIGNED BY JARAD SIMMS MD, ON 05/18/2021 AT 10:10 AM EDT DISCLAIMER : THIS IS A VISIT SUMMARY EXTRACTED FROM THE [employer] CHART. IT IS NOT A COPY OF THE [employer] PROGRESS NOTE. MTDD
== END ==
LOC: M PAIN 08:30
PROVIDERS: ATTEND Anesthesiology
DX: M79.18 Myalgia, other site (principal); G47.33 Obstructive sleep apnea (adult) (pediatric); Z98.84 Bariatric surgery status; Z79.82 Long term (current) use of aspirin; Z79.899 Other long term (current) drug therapy
CPT/HCPCS: 20552; J3301

== ENCOUNTER → 2021-05-22 | Outpatient (CLI) | payer MEDICARE, MEDICAID ==
[~2021-05-22] MED LIST changes: -BUPIVACAINE HCL 0.25% 10ML VIAL As Ordered ONE; -BUPIVACAINE HCL 0.25% 30ML VIAL As Ordered ONE; -NORCO, ANEXSIA 5/325MG TABLET (HYDROcodone/ACETAMINOPHEN) As Ordered ONE; -TRIAMCINOLONE ACETONIDE SUSP 40 MG/ML VIAL (J3301) As Ordered ONE; -diazePAM 5MG TABLET As Ordered ONE
[2021-05-22 11:17] LABS: HEMATOCRIT 40.9 % (36.0-47.0); HEMOGLOBIN 13.2 g/dl (12.0-15.5); MEAN CORPUSCULAR HGB CONC 32.3 g/dl (32.0-36.5); MEAN CORPUSCULAR VOLUME 86.8 fl (80.0-96.0); PLATELET COUNT, AUTOMATED 267 10^3/uL (150-450); RED BLOOD COUNT 4.71 10^6/uL (4.00-5.40); WHITE BLOOD COUNT 8.1 10^3/uL (4.0-10.0)
[2021-05-22 11:21] LABS: HEMATOCRIT 40.9 % (36.0-47.0)
[2021-05-22 12:07] LABS: ALBUMIN 4.2 GM/DL (3.2-5.2); ALT/SGPT 26 U/L (12-78); BILIRUBIN,TOTAL 0.7 MG/DL (0.2-1.0); BLOOD UREA NITROGEN 18 MG/DL (7-18); CARBON DIOXIDE LEVEL 26 MEQ/L (21-32); CHLORIDE LEVEL 110 MEQ/L (98-107); CHOLESTEROL LEVEL 172 MG/DL (<200); CHOLESTEROL RISK RATIO 2.457 (<5); CREATININE FOR GFR 0.59 MG/DL (0.55-1.30); FERRITIN 64 NG/ML (8-252); GLOMERULAR FILTRATION RATE > 60.0 (>45); GLUCOSE, FASTING 91 MG/DL (70-100); HDL CHOLESTEROL 70 MG/DL (>40); IRON (FE) 56 UG/DL (50-170); LDL CHOLESTEROL 83 MG/DL (<100); MAGNESIUM LEVEL 2.5 MG/DL (1.8-2.4); NON-HDL-C 102 MG/DL; POTASSIUM SERUM 4.3 MEQ/L (3.5-5.1); SODIUM LEVEL 142 MEQ/L (136-145); TOTAL 25(OH) VITAMIN D 24.8 NG/ML (30.0-100.0); TOTAL IRON BINDING CAPACITY 430 UG/DL (250-450); TOTAL PROTEIN 7.3 GM/DL (6.4-8.2); TRIGLYCERIDES LEVEL 94 MG/DL (<150); VITAMIN B12 LEVEL 555 PG/ML (247-911)
[2021-05-27 16:15] LABS: VITAMIN A, RETINOL LEVEL 71.2 ug/dL (22.0-69.5); VITAMIN B1 LEVEL WHOLE BLOOD 148.4 nmol/L (66.5-200.0)
== END ==
LOC: M LAB 10:30
PROVIDERS: ATTEND Family Medicine
DX: K90.9 Intestinal malabsorption, unspecified (principal); I10 Essential (primary) hypertension; Z13.1 Encounter for screening for diabetes mellitus; Z13.220 Encounter for screening for lipoid disorders; Z79.899 Other long term (current) drug therapy
CPT/HCPCS: 36415; 80053; 80061; 82306; 82607; 82728; 82747; 83036; 83550; 83735; 84100; 84425; 84443; 84590; 85027; 90832; G0463

== ENCOUNTER → 2021-05-31 | Outpatient (CLI) | payer MEDICARE, MEDICAID ==
--- NOTE | 2021-06-01 02:51 | ECWPNPC ---
PATIENT NAME: CHRISTAL HARRIS : 1960 GENDER: FEMALE VISIT DATE: 05/31/2021 DISCHARGE DATE: 05/31/21 1023 VISIT LOCKED DATE TIME: PHYSICIAN: ANDREIA WALDROP PHYSICIAN PAGER NO: ACTIVE RESOURCE: ANDREIA WALDROP REASON FOR APPOINTMENT 1. POST TRIGGER POINT INJECTIONS BILATERAL LOW BACK/MRI REVIEW HISTORY OF PRESENT ILLNESS GENERAL: HERE FOR POST PROCEDURE FOLLOW-UP. HAD TRIGGER POINT INJECTIONS BILATERAL LOWER BACK ON 05/17/2021. CONTINUES TO DO VERY WELL POST PROCEDURE. STATES NOW SHE IS ABLE TO DO WALKING AND TOLERATING HER JOB WITH LESS PAIN. SHE IS DOING VERY WELL TODAY. -. FALL RISK SCREENING: SCREENING : NO FALLS REPORTED IN THE LAST YEAR. PAIN SCREENING: PATIENT HAS A COMPLAINT OF ACUTE OR CHRONIC PAIN :YES LOCATION OF PAIN:LOW BACK INTENSITY OF PAIN (SCALE OF 1 TO 10):0 NURSING NOTE: -. PAIN CENTER INTAKE QUESTIONS: DO YOU HAVE A HISTORY OF MRSA? :NO DO YOU TAKE A BLOOD THINNERS? :YES PLAVIX DO YOU HAVE ANY BLEEDING DISORDERS? :NO ANY NEW NUMBNESS OR WEAKNESS IN YOUR LEGS OR ARMS? :YES LEFT FOOT NUMBNESS IMPROVED S/P INJECTION BUT IS RETURNING ANY PACEMAKER,DEFIBRILLATOR, OR DORSAL COLUMN STIMULATOR? :NO DO YOU HAVE ANY RASHES OR OPEN SORES? :NO ARE YOU ALLERGIC TO IV DYE? :NO ARE YOU DIABETIC? :NO ANY NEW PROBLEMS WITH YOUR MEDICATIONS? :NO HAVE YOU RECEIVED A VACCINE IN THE PAST 30 DAYS? :NO DO YOU PLAN TO RECEIVE A VACCINE IN THE NEXT 21 DAYS? :NO DO YOU NEED ANY PRESCRIPTION? :NO DO YOU TAKE ANY IMMUNOSUPPRESSIVE MEDICATIONS? :NO IS THERE A CHANCE YOU COULD BE ? :NO ARE YOU BREAST FEEDING? :NO CURRENT MEDICATIONS TAKING AMOXICILLIN 500 MG CAPSULE 4 TABS PRIOR TO DENTAL APPOINTMENTS ORALLY EVERY 8 HRS, NOTES: NOT APPLICABLE TO THIS PROCEDURE TAKING MULTIVITAMIN ADULTS - TABLET DIRECTED ORALLY TAKING MAY HAVE - - IRON INFUSIONS INTRAVENOUSLY Q 6 MOS TAKING TRINTELLIX 20 MG TABLET 1 TABLET ORALLY ONCE A DAY TAKING BUSPIRONE HCL 10 MG TABLET 1 TABLET ORALLY BID TAKING CRESTOR 10 MG TABLET 1 TABLET ORALLY ONCE A DAY TAKING PLAVIX 75 MG TABLET 1 TABLET ORALLY ONCE A DAY TAKING ASPIRIN 81 MG TABLET DELAYED RELEASE 1 TABLET ORALLY ONCE A DAY TAKING GABAPENTIN 300 MG TABLET 1 CAPSULE ORALLY FOR PAIN Q8H TID TAKING CALCIUM + D3 600-200 MG-UNIT TABLET 1 TABLET WITH A MEAL ORALLY ONCE A DAY TAKING OMEPRAZOLE 40 MG CAPSULE DELAYED RELEASE 1 CAPSULE ORALLY BID TAKING LISINOPRIL 10 MG TABLET 1 TABLET ORALLY ONCE A DAY MEDICATION LIST REVIEWED AND RECONCILED WITH THE PATIENT PAST MEDICAL HISTORY HTN HX ANEMIA WITH IRON DEFICENCY - DR. CARRILLO OBESITY S/P GASTRIC BYPASS DEGENERATIVE DISC DISEASE, CHRONIC LOW BACK PAIN, BILATERAL SCIATICA AND RADICULOPATHY - [facility] PAIN DEPRESSION AND ANXIETY - [facility] [place] - USES CPAP NIGHTLY; DR. Mariana BEDOYA NEUROPATHY IN LEFT LEG - DR. Damaris BEDOYA STROKE 11/04/20 HX FIGUEREDO'S ESOPHAGUS - DR. WATKINS HX COLON CANCER - DR. WATKINS MONITORS WITH COLONOSCOPY Q2H HX RLS, RESOLVED PFO, CLOSED IN 01/[address] PALAFOX; FOLLOWS WITH DR. ESPINOSA HISTORY OF BILATERAL ROTATOR CUFF REPAIRS - SAW [facility] IN THE PAST HLD PREDIABETES, A1C 6.0% IN 05/2021 SHINGLES 01/04/2021 PFIZER 1ST COVID SHOT : 01/28/2021 2ND : 02/18/2021 ALLERGIES N.K.D.A. SOCIAL HISTORY GENERAL: TOBACCO USE ARE YOU A:NONSMOKER LATEX QUESTIONNAIRE LATEX ALLERGY : HAVE YOU EVER DEVELOPED ANY TYPE OF REACTION AFTER HANDLING LATEX PRODUCTS SUCH RUBBER GLOVES, CONDOMS, DIAPHRAGMS, BALLOONS, SOCKS, OR UNDERWEAR?NO LATEX ALLERGY : HAVE YOU EVER DEVELOPED ANY TYPE OF REACTION DURING OR AFTER DENTAL APPOINTMENT, VAGINAL/RECTAL EXAMINATION, SURGICAL PROCEDURE, OR ANY OTHER EXPOSURE?NO LATEX RISK : HAVE YOU EVER HAD ANY DIFFICULTY BREATHING OR HIVES AFTER EATING OR HANDLING ANY FRUITS, OR VEGETABLES; SUCH KIWI, BANANAS, STONE FRUITS, OR CHESTNUTSNO LATEX RISK : DO YOU HAVE A PREVIOUS PERSONAL HISTORY OF MORE THAN NINE SURGERIES, SPINA BIFIDA, OR REPEATED CATHERIZATIONS? YES - PLEASE INDICATE : > 9 SURGERIES LATEX RISK : ARE YOU FREQUENTLY EXPOSED TO LATEX PRODUCTS IN YOUR OCCUPATION?NO DATE ASKED : 05/31/2021 ALCOHOL USE: NO. LUNG CANCER SCREENING SMOKING STATUS:NON SMOKER ALCOHOL SCREENING DID YOU HAVE A DRINK CONTAINING ALCOHOL IN THE PAST YEAR?NO POINTS0 INTERPRETATIONNEGATIVE RECREATIONAL DRUG USE DRUG USE?NO CAFFEINE CAFFEINE USE?YES 4 CUPS OF COFFEE A DAY SEXUAL HX HAD SEX IN THE LAST 12 MONTHS (VAGINAL, ORAL, OR ANAL)?: NO, HAVE YOU EVER HAD AN STD?: NO. HIV / HEP-C SCREENING HIV TEST OFFERED TO PATIENT:YES DATE OFFERED:04/19/2021 TEST ACCEPTED:NO REASON:PATIENT DECLINED BROCHURE PROVIDED TO PATIENTYES NONDENOMINATIONAL [id number] CONFUCIANIST LANGUAGE SAO TOMEAN. EDUCATION LEVEL OF EDUCATION:FINISHED COLLE[employer] ASSOC[employer]ATES DEGREE LEARNING BARRIERS / SPECIAL NEEDS CHANGE FROM LAST VISIT?YES BARRIERS TO LEARNING?NO HEARING IMPAIRED?NO VISION IMPAIRED?NO COGNITIVELY IMPAIRED?YES READINESS TO LEARN?YES LEARNING PREFERENCES?YES :DEMONSTRATION/VERBAL INSTRUCTION LEARNING CAPABILITIES PRESENT?YES EMOTIONAL BARRIERS?NO SPECIAL DEVICES?YES : CPAP CONTRACTS PARALEGAL NEEDED?NO DOMESTIC VIOLENCE NONE. OCCUPATION: [employer]. DIET: REGULAR. EXERCISE: WALKS. MARITAL STATUS: .. OTHERS AT HOME: BOYFRIEND. REVIEW OF SYSTEMS CONSTITUTIONAL: ANY RECENT FEVER NO . CHILLS NO . WEIGHT CHANGE OF UNKNOWN REASONS NO . GASTROENTEROLOGY: NEW UNEXPLAINABLE CHANGES IN BOWEL CONTROL NO . CONSTIPATION NO . GENITOURINARY: ANY NEW CHANGE IN BLADDER CONTROL? NO . NEUROLOGY: NEW ONSET DIZZINESS OR NEUROLOGICAL CHANGES NOT MENTIONED NO . NEW NUMBNESS OR PAIN PATTERNS NOT MENTIONED AND PERTINENT TO TODAY'S VISIT NO . CARDIOLOGY: NEW CHEST PRESSURE NO . PATIENT DENIES NO . RESPIRATORY: UNEXPLAINABLE COUGH NO . NEW SHORTNESS OF BREATH NO . VITAL SIGNS WT 220 LBS, HT 64 IN, BMI 37.76 INDEX, BP 157/78 MM HG, REPEAT BP 147/80 MM HG, HR 69 /MIN, RR 20 /MIN, TEMP 98.0 F, OXYGEN SAT % 98%, SAFE IN ENV? (Y/N) YES, NA INITIALS ID [id number].TRICIA JOE. EXAMINATION GENERAL EXAMINATION: GENERALNO ACUTE DISTRESS, WELL NOURISHED AND HYDRATED. PSYCHAPPROPRIATE MOOD AND AFFECT . LUNGS:CLEAR TO AUSCULTATION BILATERALLY, NO WHEEZES, RHONCHI, RALES. HEART:NO MURMURS, REGULAR RATE AND RHYTHM. LUMBAR: MUSCLE STRENGTH TESTING 5/5 BILATERAL LOWER EXTREMITIES PALPATION: NEGATIVE FOR PAIN OVER L/S SPINE. NEGATIVE FOR PAIN OVER L/S PARSPINALS. ASSESSMENTS OTHER CHRONIC PAIN - G89.29 (PRIMARY) NEUROPATHY - G62.9 MYALGIA, OTHER SITE - M79.18 TREATMENT OTHER CHRONIC PAIN PAIN PROCEDURE LOGDATE OF PROCEDURE05/17/2021ROCEDURE:TRIGGER POINT INJECTION BILATERAL LOW BACKAMOUNT OF PRE SEDATEVALIUM 5MG, NORCO 5-325MGRESULT:MARKED REDUCTION IN PAIN AND IMPROVED ACTIVITY TOLERANCE NOTES: REVIEWED MRI OF THE LS SPINE DONE PER MY ORDER LAST MONTH. SHOWING MINIMAL SPINAL STENOSIS AND MODERATE NEUROFORAMINAL NARROWING AT L4-5. WE WILL DISCUSS TREATMENT OPTIONS AT HER FOLLOW-UP APPOINTMENT IN 3 MONTHS IF PAIN RETURNS. CONTINUE HOME EXERCISE AND STRETCHING. PROCEDURE CODES FA211 ESTABILISHED PATIENT [facility] CHARGE DISPOSITION & COMMUNICATION FOLLOW UP 3 MONTHS (REASON: LBP/DOES WELL W TPI) ELECTRONICALLY SIGNED BY JANET OWENS ON 05/31/2021 AT 12:56 PM EDT DISCLAIMER : THIS IS A VISIT SUMMARY EXTRACTED FROM THE [employer] CHART. IT IS NOT A COPY OF THE [employer] PROGRESS NOTE. AYUSH
== END ==
LOC: M PAIN 09:45
PROVIDERS: ATTEND Nurse Practitioner Family
DX: G62.9 Polyneuropathy, unspecified (principal); M79.18 Myalgia, other site; G47.33 Obstructive sleep apnea (adult) (pediatric); Z98.84 Bariatric surgery status; Z79.01 Long term (current) use of anticoagulants; Z79.82 Long term (current) use of aspirin; Z79.899 Other long term (current) drug therapy

== ENCOUNTER → 2021-06-05 | Outpatient (CLI) | payer MEDICARE, MEDICAID ==
--- NOTE | 2021-06-05 11:30 | REP ---
INDICATION: ADDL VIEWS/LEFT BREAST NODULE. COMPARISON: Screening examination 05/16/2021 diagnostic digital magnified spot compression views of the left breast TECHNIQUE: Were obtained in the CC and MLO projections along with diagnostic ultrasonography bilateral CC and MLO) view(s) were taken. FINDINGS: The nodular density seen on the screening examination in the left breast retroareolar region persists on the diagnostic spot compression views. Diagnostic ultrasonography shows a solid nodule which corresponds to the mammographic finding measuring 7 mm in its greatest dimension and exhibiting acoustic shadowing. Shear wave elastography was performed on this nodule showing mid range kPa values. IMPRESSION: BIRADS/ACR category 4 mammogram and left breast ultrasound. Biopsy is recommended. The patient letter being requested is M4. RECOMMENDATION: As above). <Electronically signed by Amado Roach > 06/05/21 1125
== END ==
LOC: M WHC 09:24
PROVIDERS: ATTEND Family Medicine
DX: R92.2 Inconclusive mammogram (principal)

== ENCOUNTER 2021-06-07 12:15 | Outpatient (RCR) | payer MEDICARE, MEDICAID ==
[~2021-06-07 12:15] MED LIST changes: -OMEP-221 PO; +OMEP40CA5 PO
== END 2021-06-09 ==
LOC: M PT 12:15
PROVIDERS: ATTEND Podiatrist Foot & Ankle Surgery
DX: M72.2 Plantar fascial fibromatosis (principal)

== ENCOUNTER → 2021-06-12 | Outpatient (CLI) | payer MEDICARE, MEDICAID ==
[~2021-06-12] MED LIST changes: +BRIN1TAB3 PO; +DOXY-443 PO
== END ==
LOC: M PLALAB 13:27
PROVIDERS: ATTEND Surgery
DX: Z13.79 Encounter for other screening for genetic and chromosomal anomalies (principal)

== ENCOUNTER 2021-06-28 12:18 | Outpatient (RCR) | payer MEDICARE, MEDICAID ==
[~2021-06-28 12:18] MED LIST changes: -BRIN1TAB3 PO; -DOXY-443 PO; +OMEP-221 PO; -OMEP40CA5 PO
[2021-07-04] MEDS ORDERED: BRIN1TAB3 PO (08:13)
== END 2021-07-10 ==
LOC: M PT 12:18
PROVIDERS: ATTEND Podiatrist Foot & Ankle Surgery
DX: M72.2 Plantar fascial fibromatosis (principal); M76.60 Achilles tendinitis, unspecified leg

== ENCOUNTER → 2021-07-04 | Outpatient (CLI) | payer MEDICARE, MEDICAID ==
[~2021-07-04] MED LIST changes: +BRIN1TAB3 PO
[2021-07-04 08:54] VITALS: BP 140/74
--- NOTE | 2021-07-04 20:29 | ROOPDOC ---
[facility] Report Of Operation Report of Operation DATE OF PROCEDURE: 07/04/2021 DIAGNOSIS: left breast suspicious lesion PROCEDURE: ultrasound guided biopsy of the left breast suspicious lesion with clip placement SURGEON: Benny Rueda BLOOD LOSS: minimal COMPLICATIONS: none Lidocaine 1% LOT [id number] Expiration 12/2024 Sodium Bicarbonate 8.4% LOT [id number] Expiration 12/2021 Hydromark clip LOT [id number] Expiration 02/2024 SHAPE: 3 Bx device: BARD [id number] x10 cm LOT [id number] Expiration 09/2023 Informed consent was obtained. The most common risk and possible complications including bleeding, hematoma, bruising, infection, injury to surrounding structures were explained to the patient and the patient expressed understanding. Patient was placed on the bed in the supine position. Appropriate time out was done stating patients name, date of , and the procedure to be performed. The left breast was prepped and draped in the usual fashion. The ultrasound was used to confirm the location of the lesion in the left breast in retroareolar region at 1:00. Plain Lidocaine 1% and 8.4% sodium bicarbonate 10:1 mix was used to anesthetize the skin, the biopsy site and tissues along the anticipated biopsy tract. Small skin incision was made with blade number 11. BARD Marquee 14G cannula with introducer ([id number]) was inserted through the incision and advanced under the ultrasound guidance to position immediately adjacent to the lesion. Next, the introducer was removed and BARD Marquee 14G biopsy device was places in the cannula. Pre-biopsy imaging, and post-biopsy imaging were captured. Five good core biopsies were taken at various levels of the lesion. Specimen was placed in formaldehyde, labeled with appropriate biopsy site and patients name, and sent to pathology for evaluation. Next, the biopsy device was withdrawn and a clip introducer was inserted into the biopsy site via the cannula. SHAPE 3 Hydromark clip was deployed under sonographic guidance. Post-clip placement image was captured. Manual pressure over the biopsy cavity and tract was held after the clip introducer was withdrawn. No bleeding was noted upon removal of the pressure. Post-biopsy mammogram of the left breast was obtained and showed clip in exp ected position. Postprocedural dressing was placed. Patient tolerated procedure well. Discharge instructions were discussed with the patient and the patient expressed understanding. BENNY RUEDA DO Jul 04, 2021 20:29
== END ==
LOC: M WHCPRO 06:25
PROVIDERS: ATTEND Surgery
DX: N63.22 Unspecified lump in the left breast, upper inner quadrant (principal); N60.22 Fibroadenosis of left breast
CPT/HCPCS: 19083; 77065; 88305; G0279

== ENCOUNTER → 2021-08-30 | Outpatient (CLI) | payer MEDICARE, MEDICAID ==
--- NOTE | 2021-08-30 14:24 | REP ---
INDICATION: RADICULOPATHY, LUMBAR REGION-HAS LABS FIRST. COMPARISON: 01/05/2016 TECHNIQUE: Eight views FINDINGS: The grade 1 L4 upon L5 spondylolisthesis seen on the prior examination is increased slightly and is now on the cusp of being grade 2 when viewed on the flexion bending view. When viewed in the neutral view is unchanged from the prior exam.. The extension bending view indicate some decrease in this spondylolisthesis. There are no other significant changes compared to the prior exam. IMPRESSION: Although a rough estimate, there suggests mild instability at the L4-5 level as described above. This needs to be correlated clinically. <Electronically signed by Amado Roach > 08/30/21 [id number]
== END ==
LOC: M RAD 12:22
PROVIDERS: ATTEND Anesthesiology
DX: M43.16 Spondylolisthesis, lumbar region (principal); M54.16 Radiculopathy, lumbar region

== ENCOUNTER → 2021-08-30 | Outpatient (CLI) | payer MEDICARE, MEDICAID ==
[~2021-08-30] MED LIST changes: +DOXY-443 PO
== END ==
LOC: M PAIN 11:00
PROVIDERS: ATTEND Anesthesiology
DX: M54.16 Radiculopathy, lumbar region (principal); M79.18 Myalgia, other site; G47.33 Obstructive sleep apnea (adult) (pediatric); M43.16 Spondylolisthesis, lumbar region; R06.02 Shortness of breath; Z86.59 Personal history of other mental and behavioral disorders; Z98.84 Bariatric surgery status; Z79.82 Long term (current) use of aspirin; Z79.899 Other long term (current) drug therapy
CPT/HCPCS: 36415; 71046; 72114; 80053; 83880; 85027; G0463

== ENCOUNTER → 2021-08-30 | Outpatient (CLI) | payer MEDICARE, MEDICAID ==
[~2021-08-30] MED LIST changes: -DOXY-443 PO
[2021-08-30 13:23] LABS: HEMATOCRIT 38.5 % (36.0-47.0); HEMOGLOBIN 12.5 g/dl (12.0-15.5); MEAN CORPUSCULAR HEMOGLOBIN 28.6 pg (27.0-33.0); MEAN CORPUSCULAR HGB CONC 32.5 g/dl (32.0-36.5); MEAN CORPUSCULAR VOLUME 88.1 fl (80.0-96.0); PLATELET COUNT, AUTOMATED 231 10^3/uL (150-450); RED BLOOD COUNT 4.37 10^6/uL (4.00-5.40); WHITE BLOOD COUNT 5.8 10^3/uL (4.0-10.0)
[2021-08-30 14:09] LABS: ALBUMIN 3.9 GM/DL (3.2-5.2); ALT/SGPT 26 U/L (12-78); BILIRUBIN,TOTAL 0.6 MG/DL (0.2-1.0); BLOOD UREA NITROGEN 15 MG/DL (7-18); CARBON DIOXIDE LEVEL 29 MEQ/L (21-32); CHLORIDE LEVEL 107 MEQ/L (98-107); CREATININE FOR GFR 0.77 MG/DL (0.55-1.30); GLOMERULAR FILTRATION RATE > 60.0 (>45); GLUCOSE, FASTING 88 MG/DL (70-100); NT-PRO BNP 21 PG/ML (<125); POTASSIUM SERUM 4.2 MEQ/L (3.5-5.1); SODIUM LEVEL 140 MEQ/L (136-145); TOTAL PROTEIN 7.1 GM/DL (6.4-8.2)
--- NOTE | 2021-08-30 14:20 | REP ---
INDICATION: SOB-HAS LABS FIRST. COMPARISON: Multiple latest 04/22/2021 TECHNIQUE: PA and lateral FINDINGS: The cardiomediastinal silhouette lung joe are unchanged. There is an intracardiac device status quo. Lung joe are clear. The pleural lungs are sharp. Heart is not enlarged. The osseous structures stable. IMPRESSION: There is no acute cardiopulmonary disease. No significant change. <Electronically signed by Amado Roach > 08/30/21 [id number]
== END ==
LOC: M LAB 12:18
PROVIDERS: ATTEND Physician Assistant
DX: R06.02 Shortness of breath (principal)

== ENCOUNTER 2021-09-16 08:28 | Emergency (ER) | payer MEDICARE, MEDICAID ==
[~2021-09-16] VITALS: Ht 160 cm; Wt 97.9 kg
--- OUTSIDE RECORDS SUMMARY | 2021-09-16 08:35 | CCD | Continuity of Care Document ---
Author Author Susy WHALEY PA Organization Unknown Address [address] [place] [address] [place] [address] Phone [phone] Care Team Providers Care Loan Teller Name Role Phone Gisela Franks MD AUTM [phone] Betty Persaud MD AUTM [phone] Karlene Ames MD AUTM [phone] Anali Barth DO AUTM Problems Active Problems Provider Date Ostium secundum type atrial septal defect Kael Pineda MD Onset: 12/05/2020 Cerebral artery occlusion Kael Pineda MD Onset: 2020 Essential hypertension Kael Pineda MD Onset: Pure hypercholesterolemia Kael Pineda MD Onset: 2020 Morbid obesity Kael Pineda MD Onset: 12/05/2020 Dietary management surveillance Kael Pineda MD Onset: 12/05/2020 Mixed hyperlipidemia Kael Pineda MD Onset: 12/05/2020 Palpitations Kael Pineda MD Onset: 12/05/2020 Edema Kael Pineda MD Onset: 12/05/2020 Electrocardiogram abnormal BERT Barroso Onset: Social History Type Date Description Comments Sex Unknown ETOH Use Does not consume alcohol Tobacco Use Start: Unknown Patient has never smoked Smoking Status Reviewed: 08/28/21 Patient has never smoked Exercise Type/Frequency Walks sporadically Exercise Type/Frequency Does housework twice a w [place] Exercise Limitations Other Pain in low er back and left leg Exercise Limitations Neuropathy Allergies and adverse reactions Description No Known Drug Allergies Medications Active Medications SIG Qnty Indications Ordering Provide r Date Nitroglycerin 0.4mg Tablets Sub 1 tab sl every 5 min times 3 doses as needed chest discomfort 25tabs R07.9 Don Llanes MD 08/28/2021 Trintellix 10mg Tablets 1 by mouth every day Unknown 04/12/[address] 1 by mouth every day Unknown 12/04/2020 Buspirone HCL 10mg Tablets 1 [...] 1 by mouth every day Unknown 12/04/2020 History Medications Plavix 75mg Tablets 1 by mouth every day Unknown 05/23/2021 - 021 Immunizations Description No Information Available Vital Signs Date Vital Result Comment 08/28/2021 2:12pm Weight 216.00 lb Home Weight 216lb Height 63 inches 5'3" BMI (Body Mass Index) 38.3 kg/m2 Heart Rate 66 /min BP Systolic Sitting 128 mmHg Ra, large cuff BP Diastolic Sitting 74 mmHg Ra, large cuff 12/05/2020 10:50am Weight 229.00 lb Home Weight 229lb home weight Height 63 inches 5'3" BMI (Body Mass Index) 40.6 kg/m2 Heart Rate 57 /min BP Systolic Sitting 135 mmHg CBP, large cuff/Ra BP Diastolic Sitting 75 mmHg CBP, large cuff/Ra Results Test Acquired Date Facility Test Result H/L Range Note Complete Blood Count 08/30/2021 [facility] enter [phone] White Blood Count 5.8 10 Normal 4.0-10.0 Red Blood Count 4.37 10 Normal 4.00-5.40 Hemoglobin 12.5 g/dL Normal 12.0-15.5 Hematocrit 38.5 % Normal 36.0-47.0 Mean Corpuscular Volume 88.1 fl Normal 80.0-96.0 Mean Corpuscular Hemoglobin 28.6 pg Normal 27.0-33.0 Mean Corpuscular HGB Conc 32.5 g/dL Normal 32.0-36.5 Red Cell Distribution Width 13.4 % Normal 11.5-14.5 Platelet Count, Automated 231 10 Normal 150-450 Nucleated Red Blood Cell % 0.0 % Normal 0-0 Comprehensive Metabolic Profil 08/30/2021 [facility] [phone] Glucose, Fasting 88 mg/dL Normal 70-100 Blood Urea Nitrogen 15 mg/dL Normal 7-18 Creatinine For GFR 0.77 mg/dL Normal 0.55-1.30 Glomerular Filtration Rate > 60.0 Normal >45 1 Sodium Level 140 mEq/L Normal 136-145 Potassium Serum 4.2 mEq/L Normal 3.5-5.1 Chloride Level 107 mEq/L Normal 98-107 Carbon Dioxide Level 29 mEq/L Normal 21-32 Anion Gap 4 mEq/L Low 8-16 Calcium Level 9.0 mg/dL Normal 8.8-10.2 Ast/Sgot 18 U/L Normal 7-37 Alt/SGPT 26 U/L Normal 12-78 Alkaline Phosphatase 122 U/L High 45-117 Bilirubin,Total 0.6 mg/dL Normal 0.2-1.0 Total Protein 7.1 GM/DL Normal 6.4-8.2 Albumin 3.9 GM/DL Normal 3.2-5.2 Albumin/Globulin Ratio 1.2 Normal 1.2-2.2 Laboratory test finding 08/30/2021 [facility] [phone] NT-Pro BNP 21 pg/mL Normal <125 CBC without Differential 06/28/2021 [facility] - not inter faced (315)- - White Blood Count 6.2 5.0-10.0 Red Blood Count 4.48 4.00-5.40 Platelets 250 172-450 Hemoglobin 12.4 Hematocrit 39.0 CMP 06/28/2021 [facility] - not interfaced (315)- - Albumin Serum/Plasma 3.9 Alt - SGPT 24 Calcium Ser/Plasma Mass/Vol 9.1 Carbon Dioxide Ser/Plasm 25 Chloride Serum/Plasma 114 Alkaline Phosphatase 118 Potassium 4.0 Protein Total 6.9 Sodium 144 Ast - Sgot 12 BUN - Urea Nitrogen 14 Glucose 105 83-110 Creatinine For GFR 0.61 1 Units are mL/min/1.73 m2 Chronic Kidney Disease Staging per NKF: Stage I & II GFR >=60 Normal to Mildly Decreased Stage III GFR 30-59 Moderately Decreased Stage IV GFR 15-29 Severely Decreased Stage V GFR <15 Very Little GFR Left ESRD GFR <15 on PLASMA SPECIALIST Procedures Date Code Description Status 08/28/2021 48995 Office/Outpatient Established Mo d MDM 30-39 Min Completed 08/28/2021 47968 ECG 12-Lead Completed 07/19/2021 56338 Chronic Care MGMT 20 Mins Clinical Staff Time Per Calendar Month Completed 06/19/2021 83200 Chronic Care MGMT 20 Mins Clinical Staff Time Per Calendar Month Completed 06/19/2021 99412 Chronic Care Management Services Ea Addl 20 Min Completed 05/24/2021 51962 Complex Chronic Care MGMT Servic e Ea Addl 30 Min Completed 05/24/2021 94798 Complex Chronic Care Management SVC 1St 60 Min Completed 04/18/2021 53626 Complex Chronic Care MGMT Servic e Ea Addl 30 Min Completed 04/18/2021 89971 Complex Chronic Care Management SVC 1St 60 Min Completed Medical Devices Description No Information Available Encounters Type Date Location Provider Dx Diagnosis Office Visit 08/28/2021 2:00p Main Office BERT Barroso R07 .9 Chest pain, unspecified R06.02 Shortness of breath Q21.1 Atrial septal defect I63.9 Cerebral infarction, unspeci fied I10 Essential (primary) hyperten josiah E78.2 Mixed hyperlipidemia R94.31 Abnormal electrocardiogram [ ECG] [EKG] E66.01 Morbid (severe) obesity due to excess calories Z71.3 Dietary counseling and surve illance Office Visit 06/19/2021 10:47a Main Office Kael Pineda MD I10 Essential (primary) hypertension E66.01 Morbid (severe) obesity due to excess calories Office Visit 05/24/2021 5:53p Main Office Kael Pineda MD I10 Essential (primary) hypertension E66.01 Morbid (severe) obesity due to excess calories R00.2 Palpitations Office Visit 04/18/2021 2:28p Main Office Kael Pineda MD R00.2 Palpitations I10 Essential (primary) hyperten josiah E66.01 Morbid (severe) obesity due to excess calories Assessments Date Code Description Provider 08/28/2021 R07.9 Chest pain, unspecified BERT Gifford 08/28/2021 R06.02 Shortness of breath BERT Barroso 08/28/2021 Q21.1 Atrial septal defect BERT Coles 08/28/2021 I63.9 Cerebral infarction, unspecified BERT Barroso 08/28/2021 I10 Essential (primary) hypertension BERT Barroso 08/28/2021 E78.2 Mixed hyperlipidemia BERT Coles 08/28/2021 R94.31 Abnormal electrocardiogram [ECG] [EKG] BERT Barroso 08/28/2021 E66.01 Morbid (severe) obesity due to e xcess calories BERT Barroso 08/28/2021 Z71.3 Dietary counseling and surveilla nce BERT Barroso 07/19/2021 I10 Essential (primary) hypertension Kael Pineda MD 07/19/2021 E78.2 Mixed hyperlipidemia Kael yanes MD 06/19/2021 I10 Essential (primary) hypertension Kael Pineda MD 06/19/2021 E66.01 Morbid (severe) obesity due to e xcess calories Kael Pineda MD 05/24/2021 I10 Essential (primary) hypertension Kael Pineda MD 05/24/2021 E66.01 Morbid (severe) obesity due to e xcess calories Kael Pineda MD 05/24/2021 R00.2 Palpitations Kael Pineda MD 04/18/2021 R00.2 Palpitations Kael Pineda MD 04/18/2021 I10 Essential (primary) hypertension Kael Pineda MD 04/18/2021 E66.01 Morbid (severe) obesity due to e xcess calories Kael Pineda MD Plan of Treatment Future Appointment(s):* 02/26/2022 2:30 pm - BERT Barroso at Main Office * 09/17/2021 1:30 pm - Cardiac PET at Main Office * 11/21/2021 3:00 pm - ECHO at Main Office 08/28/2021 - BERT Barroso* R07.9 Chest pain, unspecified* New Medication:* Nitroglycerin 0.4 mg - 1 tab sl every 5 min times 3 doses as needed chest discomfort * New Xrays:* PET Myocardial Perfusion Multi Study AT [facility], Scheduled: 09/17/21 * Recommendations:* Cardiac PET scan has been ordered for further evaluation Patient agreeable to seek emergency medical attention with any worsening chest pain * R06.02 Shortness of breath* New Labs:* NT Probnp QN Ser/Plas, Ordered: 08/28/21 * CMP & CBC, Ordered: 08/28/21 * New Xrays:* XR Chest 2 Views, Ordered: 08/28/21 * Recommendations:* Chest x-ray, echocardiogram Doppler, labs, and cardiac PET scan have been ordered for further evaluation Please alert the office with the onset of any worsening shortness of breath * Q21.1 Atrial septal defect* New Xrays:* US Echocardiogram Transthoracic W Doppler And Color Flow, Ordered: 08/28/21 * Recommendations:* Repeat echocardiogram ordered for further evaluation * I63.9 Cerebral infarction, unspecified* Recommendations:* Continue per neurology Please seek medical attention with the onset of any lateralizing neurologic symptoms * I10 Essential (primary) hypertension* Recommendations:* Continue lisinopril at the current dosage Advised patient to please monitor blood pressures at home and to alert our office for readings >140/>90 or <110/<60 * E78.2 Mixed hyperlipidemia* Recommendations:* Continue rosuvastatin at the current dosage * R94.31 Abnormal electrocardiogram [ECG] [EKG]* Recommendations:* No further evaluation is needed at this time. * E66.01 Morbid (severe) obesity due to excess calories * Z71.3 Dietary counseling and surveillance* Recommendations:* Recommended for patient to follow a more whole food diet. Advised patient to avoid overly processed foods and packaged foods. Advised patient to avoid sodas, juices and other liquid calories. Recommended at least 30 minutes of exercise 3 days a week. * All * Follow up:* Follow up in 6 months or sooner depending on test results Functional Status Functional Condition Comment Date Status Independent with all ADL's Activ e Mental Status Description No Information Available Referrals Description No Information Available
--- OUTSIDE RECORDS SUMMARY | 2021-09-16 08:35 | CCD | Continuity of Care Document ---
Author Author Susy PINEDA MD Organization Unknown Address [address] [place] [address], [facility] [place] [address] Phone [phone] Care Team Providers Care Store Facility Technician Name Role Phone Gisela Franks MD AUTM [phone] Betty Persaud MD AUTM [phone] Karlene Ames MD AUTM [phone] Anali Barth DO AUTM Problems Active Problems Provider Date Ostium secundum type atrial septal defect Kael Pineda MD Onset: 12/05/2020 Cerebral artery occlusion Kael Pineda MD Onset: 2020 Essential hypertension Kael Pinead MD Onset: Pure hypercholesterolemia Kael Pineda MD Onset: 2020 Morbid obesity Kael Pineda MD Onset: 12/05/2020 Dietary management surveillance Kael Pineda MD Onset: 12/05/2020 Mixed hyperlipidemia Kael Pineda MD Onset: 12/05/2020 Palpitations Kael Pineda MD Onset: 12/05/2020 Edema Kael Pineda MD Onset: 12/05/2020 Social History [...] SIG Qnty Indications Ordering Provide r Date Plavix 75mg Tablets 1 by mouth every day Unknown 05/23/2021 Trintellix 10mg Tablets 1 by mouth every [...] Sitting 75 mmHg CBP, large cuff/Ra Results Description No Information Available Procedures Date Code Description Status 06/19/2021 39243 Chronic Care MGMT 20 Mins Clinical Staff Time Per Calendar Month Completed 06/19/2021 01593 Chronic Care Management Services Ea Addl 20 Min Completed 05/24/2021 76875 Complex Chronic Care MGMT Servic e Ea Addl 30 Min Completed 05/24/2021 13056 Complex Chronic Care Management SVC 1St 60 Min Completed 04/18/2021 13918 Complex Chronic Care MGMT Servic e Ea Addl 30 Min Completed 04/18/2021 78173 Complex Chronic Care Management SVC 1St 60 Min Completed Medical Devices Description No Information Available Encounters Type Date Location Provider Dx Diagnosis Office Visit 06/19/2021 10:47a Main Office Kael [...] excess calories Assessments Date Code Description Provider 06/19/2021 I10 Essential (primary) hypertension Kael Pineda [...] Pineda MD Plan of Treatment Future Appointment(s):* 08/28/2021 2:00 pm - BERT Barroso at Main Office Functional Status Functional Condition Comment Date Status Independent with all ADL's Activ e Mental Status Description No Information Available Referrals Description No Information Available
--- OUTSIDE RECORDS SUMMARY | 2021-09-16 08:35 | CCD | Continuity of Care Document ---
Author Author Susy PINEDA MD Organization Unknown Address [address] [place] [address], [facility] [place] [address] Phone [phone] Care Team Providers Care Internal Medicine Physician Name Role Phone Gisela Franks MD AUTM [phone] Betty Persaud MD AUTM [phone] Karlene Amse MD AUTM [phone] Anali Barth DO AUTM Problems Active Problems [...] Exercise Type/Frequency Does housework twice a w [place] Exercise Limitations Other Pain in low er [...] H/L Range Note Complete Blood Count 08/30/2021 [facility] enter [phone] White Blood Count 5.8 10 Normal 4.0-10.0 [...] % Normal 0-0 Comprehensive Metabolic Profil 08/30/2021 [facility] [phone] Glucose, Fasting 88 mg/dL Normal 70-100 Blood [...] 1.2 Normal 1.2-2.2 Laboratory test finding 08/30/2021 [facility] [phone] NT-Pro BNP 21 pg/mL Normal <125 CBC without Differential 06/28/2021 [facility] - not inter faced (315)- - White Blood Count 6.2 5.0-10.0 Red Blood Count 4.48 4.00-5.40 Platelets 250 172-450 Hemoglobin 12.4 Hematocrit 39.0 CMP 06/28/2021 [facility] - not interfaced (315)- - [...] Little GFR Left ESRD GFR <15 on TOP DISTRIBUTION EXECUTIVE Procedures Date Code Description Status 08/28/2021 98206 Office/Outpatient Established Mo d MDM 30-39 Min Completed 08/28/2021 93340 ECG 12-Lead Completed 07/19/2021 18836 Chronic Care MGMT 20 Mins Clinical Staff Time Per Calendar Month Completed 06/19/2021 52102 Chronic Care MGMT 20 Mins Clinical Staff Time Per Calendar Month Completed 06/19/2021 49391 Chronic Care Management Services Ea Addl 20 Min Completed 05/24/2021 22769 Complex Chronic Care MGMT Servic e Ea Addl 30 Min Completed 05/24/2021 48871 Complex Chronic Care Management SVC 1St 60 Min Completed 04/18/2021 07874 Complex Chronic Care MGMT Servic e Ea Addl 30 Min Completed 04/18/2021 91883 Complex Chronic Care Management SVC 1St 60 [...] Dietary counseling and surve illance Office Visit 07/19/2021 2:26p Main Office Kael Pineda MD I10 Essential (primary) hypertension E78.2 Mixed hyperlipidemia Office Visit 06/19/2021 10:47a Main Office Kael [...] * CMP & CBC, Ordered: 08/28/21 * Recommendations:* Chest x-ray, echocardiogram [...]
--- OUTSIDE RECORDS SUMMARY | 2021-09-16 08:35 | CCD | Continuity of Care Document ---
Author Author Susy WHALEY PA Organization Unknown Address [address] [place] [address] [place] [address] Phone [phone] Care Team Providers Care Sewing Demonstrator Name Role Phone Gisela Franks MD AUTM [phone] Betty Persaud MD AUTM [phone] Karlene Ames MD AUTM [phone] Anali Barth DO AUTM [phone] Problems Active Problems Provider Date Ostium secundum [...] Exercise Type/Frequency Does housework twice a w [place] Exercise Limitations Other Pain in low er [...] Result H/L Range Note CBC without Differential 06/28/2021 [facility] - not inter faced (315)- - White Blood Count 6.2 5.0-10.0 Red Blood Count 4.48 4.00-5.40 Platelets 250 172-450 Hemoglobin 12.4 Hematocrit 39.0 CMP 06/28/2021 [facility] - not interfaced (315)- - Albumin Serum/Plasma 3.9 Alt - SGPT 24 Calcium Ser/Plasma Mass/Vol 9.1 Carbon Dioxide Ser/Plasm 25 Chloride Serum/Plasma 114 Alkaline Phosphatase 118 Potassium 4.0 Protein Total 6.9 Sodium 144 Ast - Sgot 12 BUN - Urea Nitrogen 14 Glucose 105 83-110 Creatinine For GFR 0.61 Procedures Date Code Description Status 08/28/2021 64619 Office/Outpatient Established Mo d MDM 30-39 Min Completed 08/28/2021 03920 ECG 12-Lead Completed 07/19/2021 14571 Chronic Care MGMT 20 Mins Clinical Staff Time Per Calendar Month Completed 06/19/2021 73172 Chronic Care MGMT 20 Mins Clinical Staff Time Per Calendar Month Completed 06/19/2021 42770 Chronic Care Management Services Ea Addl 20 Min Completed 05/24/2021 23001 Complex Chronic Care MGMT Servic e Ea Addl 30 Min Completed 05/24/2021 35958 Complex Chronic Care Management SVC 1St 60 Min Completed 04/18/2021 91922 Complex Chronic Care MGMT Servic e Ea Addl 30 Min Completed 04/18/2021 52685 Complex Chronic Care Management SVC 1St 60 [...]
--- OUTSIDE RECORDS SUMMARY | 2021-09-16 08:35 | CCD | Continuity of Care Document ---
Author Author Susy PINEDA MD Organization Unknown Address [address] [place] [address], [facility] [place] [address] Phone [phone] Care Team Providers Care Materials Research Engineer Name Role Phone Gisela Franks MD AUTM [phone] Betty Persaud MD AUTM [phone] Karlene Ames MD AUTM [phone] Anali Barth DO AUTM Problems Active Problems [...] Exercise Type/Frequency Does housework twice a w [place] Exercise Limitations Other Pain in low er [...] H/L Range Note Complete Blood Count 08/30/2021 [facility] enter [phone] White Blood Count 5.8 10 Normal 4.0-10.0 [...] 08/30/2021 [facility] [phone] Glucose, Fasting 88 mg/dL Normal 70-100 Blood [...] 1.2 Normal 1.2-2.2 Laboratory test finding 08/30/2021 [facility] [phone] NT-Pro BNP 21 pg/mL Normal <125 CBC without Differential 06/28/2021 [facility] - not inter faced (315)- - White Blood Count 6.2 5.0-10.0 Red Blood Count 4.48 4.00-5.40 Platelets 250 172-450 Hemoglobin 12.4 Hematocrit 39.0 CMP 06/28/2021 [facility] - not interfaced (315)- - [...] Little GFR Left ESRD GFR <15 on PUBLIC SPEAKING PROFESSOR Procedures Date Code Description Status 08/28/2021 70494 Office/Outpatient Established Mo d MDM 30-39 Min Completed 08/28/2021 66070 ECG 12-Lead Completed 07/19/2021 04518 Chronic Care MGMT 20 Mins Clinical Staff Time Per Calendar Month Completed 06/19/2021 44623 Chronic Care MGMT 20 Mins Clinical Staff Time Per Calendar Month Completed 06/19/2021 42230 Chronic Care Management Services Ea Addl 20 Min Completed 05/24/2021 82209 Complex Chronic Care MGMT Servic e Ea Addl 30 Min Completed 05/24/2021 33451 Complex Chronic Care Management SVC 1St 60 Min Completed 04/18/2021 69746 Complex Chronic Care MGMT Servic e Ea Addl 30 Min Completed 04/18/2021 93393 Complex Chronic Care Management SVC 1St 60 [...]
--- OUTSIDE RECORDS SUMMARY | 2021-09-16 08:35 | CCD | Continuity of Care Document ---
Author Author Susy SOTO Organization Unknown Address [address] [facility] [address] [place] [address] Phone [phone] Care Team Providers Care Clean Up Helper Banquet Name Role Phone VIJAY SOTO AUTM [phone] Social History Type Date Description Comments Sex Unknown Allergies and adverse reactions Description No Known Drug Allergies Medications Active Medications SIG Qnty Indications Ordering Provide r Date Lisinopril 10mg Tablets take one tablet by mouth daily 90tabs Thai Shay M.D[facility] Rosuvastatin Calcium 10mg Tablets Take 1 Tablet By Mouth Once Daily In The Evening Unknow n Viibryd 40mg Tablets Take One Tablet By Mouth Daily Unknown Gabapentin 300mg Capsules Take One Tablet By Mouth Three Times Daily Unknown Omeprazole 40mg Capsules DR Take One Tablet By Mouth Daily [facility] Buspirone HCL 10mg Tablets Take 1 Tablet By Mouth Twice Daily Unknown Vitamin D3 50mcg (1999 Ut) Capsule s 1 by mouth every day 90caps Thai Shay M[facility] Multi Vitamin Tablets Take One Tablet By Mouth Daily Thai hSay M[facility] Calcium 600 600mg Tablets 1 by mouth every day Thai Shay M[facility] Medications Administered in Office Medication SIG Qnty Indications Ordering Provider Date Technetium TC 99M Sestamibi Injection Thai Shay M.D[facility] 04/22/2019 Vital Signs Date Vital Result Comment 01/10/2021 2:26pm Height 64 inches 5'4" Weight 227.38 lb BMI (Body Mass Index) 39.0 kg/m2 Body Temperature 97.3 F BP Systolic 133 mmHg BP Diastolic 83 mmHg Heart Rate 88 /min O2 % BldC Oximetry 94 % 11/13/2020 3:16pm Height 64 inches 5'4" Weight 229.38 lb BMI (Body Mass Index) 39.4 kg/m2 Body Temperature 97.5 F BP Systolic 158 mmHg BP Diastolic 92 mmHg Heart Rate 78 /min O2 % BldC Oximetry 97 % Results Test Acquired Date Facility Test Result H/L Range Note Complete Blood Count 06/28/[address] [address] [phone] White Blood Count 6.2 10 Normal 4.0-10.0 Red Blood Count 4.48 10 Normal 4.00-5.40 Hemoglobin 12.4 g/dL Normal 12.0-15.5 Hematocrit 39.0 % Normal 36.0-47.0 Mean Corpuscular Volume 87.1 fl Normal 80.0-96.0 Mean Corpuscular Hemoglobin 27.7 pg Normal 27.0-33.0 Mean Corpuscular HGB Conc 31.8 g/dL Low 32.0-36.5 Red Cell Distribution Width 13.7 % Normal 11.5-14.5 Platelet Count, Automated 250 10 Normal 150-450 Neutrophils % 63.2 % Normal 36.0-66.0 Lymph % 26.5 % Normal 24.0-44.0 [place] % 7.6 % Normal 2.0-8.0 Eos % 1.9 % Normal 0.0-3.0 Baso % 0.5 % Normal 0.0-1.0 Immature Granulocyte % 0.3 % Normal 0-3.0 Nucleated Red Blood Cell % 0.0 % Normal 0-0 Neutrophils # 3.9 10 Normal 1.5-8.5 Lymph # 1.6 10 Normal 1.5-5.0 [place] # 0.5 10 Normal 0.0-0.8 Eos # 0.1 10 Normal 0.0-0.5 Baso # 0.0 10 Normal 0.0-0.2 Comprehensive Metabolic Profil 06/28/[address] [address] [phone] Glucose, Fasting 105 mg/dL High 70-100 Blood Urea Nitrogen 14 mg/dL Normal 7-18 Creatinine For GFR 0.61 mg/dL Normal 0.55-1.30 Glomerular Filtration Rate > 60.0 Normal >45 1 Sodium Level 144 mEq/L Normal 136-145 Potassium Serum 4.0 mEq/L Normal 3.5-5.1 Chloride Level 114 mEq/L High 98-107 Carbon Dioxide Level 25 mEq/L Normal 21-32 Anion Gap 5 mEq/L Low 8-16 Calcium Level 9.1 mg/dL Normal 8.8-10.2 Ast/Sgot 12 U/L Normal 7-37 Alt/SGPT 24 U/L Normal 12-78 Alkaline Phosphatase 118 U/L High 45-117 Bilirubin,Total 0.5 mg/dL Normal 0.2-1.0 Total Protein 6.9 GM/DL Normal 6.4-8.2 Albumin 3.9 GM/DL Normal 3.2-5.2 Albumin/Globulin Ratio 1.3 Normal 1.2-2.2 Total Iron Binding Capacit 06/28/2021 [facility] [address] [place], [place] [id number] [phone] Iron (Fe) 57 g/dL Normal 50-170 Total Iron Binding Capacity 369 g/dL Normal 250-450 Percent Saturation 15.4 % Normal 13.2-45.0 Laboratory test finding 06/28/2021 [facility] [address] [place], [place] [address] [phone] Ferritin 70 NG/ML Normal 8-252 Vitamin B12 Level 461 pg/mL Normal 247-911 2 1 Units are mL/min/1.73 m2 Chronic Kidney Disease Staging per NKF: Stage I & II GFR >=60 Normal to Mildly Decreased Stage III GFR 30-59 Moderately Decreased Stage IV GFR 15-29 Severely Decreased Stage V GFR <15 Very Little GFR Left ESRD GFR <15 on GAS PLANT WORKER 2 VITAMIN B12 NORMAL RANGE NORMAL 247 - 911 PG/ML INDETERMINATE 211 - 246 PG/ML DEFICIENT LESS THAN 211 PG/ML Assessments Date Code Description Provider 08/09/2021 Z20.828 Contact with and (dorsey spected) exposure to other viral communicable diseases BERT Manuel
--- OUTSIDE RECORDS SUMMARY | 2021-09-16 08:35 | CCD | Continuity of Care Document ---
Author Author Susy WHALEY PA Organization Unknown Address [address] [place] [address] [place] [address] Phone [phone] Care Team Providers Care Narcotics Agent Name Role Phone Gisela Franks MD AUTM [phone] Betty Persaud MD AUTM [phone] Karlene Ames MD AUTM [phone] Anali Barth DO AUTM [phone] Problems Active Problems Provider Date Ostium [...] 12/05/20 Patient has never smoked Exercise Type/Frequency Walks sporadically Exercise Type/Frequency Does housework twice a w [place] Exercise Limitations Other Pain in low er back and left leg Exercise Limitations Neuropathy Allergies and adverse reactions Description No Known Drug Allergies Medications Active Medications SIG Qnty Indications Ordering Provide r Date Nitroglycerin 0.4mg Tablets Sub 1 tab sl every 5 min times 3 doses as needed chest discomfort 25tabs R07.9 Don Lalnes MD 08/28/2021 Trintellix 10mg Tablets 1 by [...] Index) 38.3 kg/m2 Heart Rate 66 /min 12/05/2020 10:50am Weight 229.00 lb Home Weight 229lb home weight Height 63 inches 5'3" BMI (Body Mass Index) 40.6 kg/m2 Heart Rate 57 /min BP Systolic Sitting 135 mmHg CBP, large cuff/Ra BP Diastolic Sitting 75 mmHg CBP, large cuff/Ra Results Test Acquired Date Facility Test Result H/L Range Note CBC without Differential 06/28/2021 [facility] - not inter faced (315)- - White Blood Count 6.2 5.0-10.0 Red Blood Count 4.48 4.00-5.40 Platelets 250 172-450 Hemoglobin 12.4 Hematocrit 39.0 CMP 06/28/2021 [facility] - not interfaced (315)- - Albumin Serum/Plasma 3.9 Alt - SGPT 24 Calcium Ser/Plasma Mass/Vol 9.1 Carbon Dioxide Ser/Plasm 25 Chloride Serum/Plasma 114 Alkaline Phosphatase 118 Potassium 4.0 Protein Total 6.9 Sodium 144 Ast - Sgot 12 BUN - Urea Nitrogen 14 Glucose 105 83-110 Creatinine For GFR 0.61 Procedures Date Code Description Status 08/28/2021 05622 Office/Outpatient Established Mo d MDM 30-39 Min Completed 08/28/2021 08649 ECG 12-Lead Completed 07/19/2021 52971 Chronic Care MGMT 20 Mins Clinical Staff Time Per Calendar Month Completed 06/19/2021 81167 Chronic Care MGMT 20 Mins Clinical Staff Time Per Calendar Month Completed 06/19/2021 81608 Chronic Care Management Services Ea Addl 20 Min Completed 05/24/2021 62645 Complex Chronic Care MGMT Servic e Ea Addl 30 Min Completed 05/24/2021 13440 Complex Chronic Care Management SVC 1St 60 Min Completed 04/18/2021 67819 Complex Chronic Care MGMT Servic e Ea Addl 30 Min Completed 04/18/2021 35888 Complex Chronic Care Management SVC 1St 60 [...] Kael Pineda MD 05/24/2021 R00.2 Palpitations Kael iPneda MD 04/18/2021 R00.2 Palpitations Kael Pineda MD [...] Perfusion Multi Study AT [facility], Ordered: 08/28/21 * R06.02 Shortness of breath* New Labs:* NT Probnp QN Ser/Plas, Ordered: 08/28/21 * CMP & CBC, Ordered: 08/28/21 * New Xrays:* XR Chest 2 Views, Ordered: 08/28/21 * Q21.1 Atrial septal defect* New Xrays:* US Echocardiogram Transthoracic W Doppler And Color Flow, Ordered: 08/28/21 * Recommendations:* Repeat echocardiogram ordered for further evaluation * I63.9 Cerebral infarction, unspecified * I10 Essential (primary) hypertension* Recommendations:* Continue lisinopril at the current dosage Advised patient to please monitor blood pressures at home and to alert our office for readings >140/>90 or <110/<60 * E78.2 Mixed hyperlipidemia * R94.31 Abnormal electrocardiogram [ECG] [EKG]* Recommendations:* [...]
--- OUTSIDE RECORDS SUMMARY | 2021-09-16 08:35 | CCD | Continuity of Care Document ---
Author Author Susy OBRIEN DPM Organization Unknown Address [address] [place] [address], [address] [place] [address] Phone [phone] Care Team Providers Care Iron Pellet Tester Name Role Phone Korin Lemus N.P. AUTM [phone] MD Karlene Ames AUTM [phone] [employer]/[facility] AUTM [phone] Problems Active Problems Provider Date Plantar fascial fibromatosis Lorenzo Obrien DPM Onset: 09/2012 Closed fracture of third metatarsal bone ANTONIO Bonilla Onset: 03/11/2021 Pronation Benoit Obrien DPM Onset: 03/11/2021 Pronation Benoit Obrien DPM Onset: 03/11/2021 Social History Type Date Description Comments Sex Unknown ETOH Use Denies alcohol use Tobacco Use Start: Unknown Patient has never smoked Allergies and adverse reactions Description No Known Drug Allergies Medications Active Medications SIG Qnty Indications Ordering Provide r Date Diclofenac Sodium 1% Gel apply 1 gram to feet 2-3 times daily 100gm Benoit Obrien DPM 2020 Trazodone HCL 50mg Tablets Unknown Omeprazole Unknown Aspirin 81 Unknown Gabapentin Unknown Buspirone HCL Unknown Ibuprofen Unknown Requip Unknown Zolpidem Tartrate 10mg Tablets Unknown Zolpidem Tartrate ER 12.5mg Tablets ER Unknown Abilify 5mg Tablets Unknown Viibryd 40mg Tablets Unknown Pristiq 50mg Tablets ER 24HR Unknown Zetia 10mg Tablets Unknown Pristiq 100mg Tablets ER 24HR Unknown Lisinopril/Hydrochlorothiazide 10-12.5mg Tablets Unknown Furosemide 40mg Tablets Unknown Furosemide 20mg Tablets Unknown Pantoprazole Sodium 40mg Tablets DR Unknown Crestor 10mg Tablets Unknown Medications Administered in Office Medication SIG Qnty Indications Ordering Provider Date Inject Triamcinolone Acetonide 10 ML, ND C 5815-0449-09 Injection Lorenzo mclaughlin, DP 07/08/2012 Inject Dexamthosone Phosphate 05040-038- 30 Injection Lorenzo Obrien, [facility] 012 Inject Triamcinolone Acetonide 10 ML, ND C 3960-0928-71 Injection Lorenzo mclaughlin, DP 02/19/2012 Inject Dexamthosone Phosphate 33092-424- 30 Injection Lorenzo Obrien, DP 012 Inject Triamcinolone Acetonide 10 ML, ND C 8933-0729-68 Injection Lorenzo mclaughlin, DP 09/07/2007 Inject Dexamthosone Phosphate 93171-697- 30 Injection Lorenzo Obrien, [facility] 007 Inject Triamcinolone Acetonide 10 ML, ND C 9266-0035-32 Injection Lorenzo mclaughlin, DP 04/27/2007 Inject Dexamthosone Phosphate 82737-239- 30 Injection Lorenzo Obrien, [facility] 007 Inject Triamcinolone Acetonide 10 ML, ND C 1414-6149-28 Injection Lorenzo mclaughlin, DP 08/20/2006 Inject Dexamthosone Phosphate 32790-482- 30 Injection Lorenzo Obrien, [facility] 006 Inject Triamcinolone Acetonide 10 ML, ND C 6199-2026-05 Injection Lorenzo mclaughlin, DP 04/03/2005 Inject Dexamthosone Phosphate 34592-885- 30 Injection Lorenzo Obrien, [facility] 05/25/2 005 Immunizations Description No Information Available Vital Signs Date Vital Result Comment 03/08/2021 8:49am Height 64 inches 5'4" Weight 227.00 lb BP Systolic 114 mmHg BP Diastolic 80 mmHg Heart Rate 86 /min BMI (Body Mass Index) 39.0 kg/m2 03/06/2021 9:18am Height 62 inches 5'2" Weight 225.00 lb BMI (Body Mass Index) 41.1 kg/m2 Results Description No Information Available Procedures Date Code Description Status 09/07/2021 93927 Office/Outpatient Established SF MDM 10-19 Min Completed 07/06/2021 45781 Office/Outpatient Established SF MDM 10-19 Min Completed 05/04/2021 96369 Office/Outpatient Established SF MDM 10-19 Min Completed Medical Devices Description No Information Available Encounters Type Date Location Provider Dx Diagnosis Office Visit 09/07/2021 8:00a [facility] Benoit Obrien DPM M65.879 Other synovitis and tenosynovitis, unsp ankle and foot M21.6x9 Other acquired deformities o f unspecified foot Office Visit 07/06/2021 8:00a [facility] Benoit Obrien DPM M65.879 Other synovitis and tenosynovitis, unsp ankle and foot Office Visit 05/04/2021 8:00a [facility] Benoit Obrien DPM M65.871 Other synovitis and tenosynovitis, right ankle and foot Assessments Date Code Description Provider 09/07/2021 M65.879 Other synovitis and tenosynovitis, unspecified ankle and foot Benoit Obrien DPM 09/07/2021 M21.6x9 Other acquired deformities of un specified foot Benoit Obrien DPM 07/06/2021 M65.879 Other synovitis and tenosynovitis, unspecified ankle and foot Benoit Obrien DPM 05/04/2021 M65.871 Other synovitis and tenosynoviti s, right ankle and foot Benoit Obrien DPM Plan of Treatment Future Appointment(s):* 11/16/2021 8:00 am - Benoit Obrien DPM at [facility] Functional Status Description No Information Available Mental Status Description No Information Available Referrals Description No Information Available
--- OUTSIDE RECORDS SUMMARY | 2021-09-16 08:35 | CCD ---
Author Author [facility] Organization [facility] Address Unknown Phone Unavailable Care Team Providers Care Upset Welding Machine Operator Name Role Phone Moises Stallings Unavailable PROBLEMS Type Condition ICD9-CM Code OBE73-KS Code Onset Dates Condition S tatus W/U Status Risk SNOMED Code Notes Problem Intervertebral disc disorder with radiculopathy of lumbosacral region M51.17 Active confirmed 27898203 Problem Other chronic pain G89.29 Active confirmed 8 8988903 Problem Neuropathy G62.9 Active confirmed 803971524 Problem Depression with anxiety F41.8 Active confirmed 624403916 Problem Vitamin D deficiency E55.9 Active confirmed 23509409 Problem Iron deficiency anemia, unspecified iron deficiency an emia type D50.9 Active confirmed 74883718 Problem History of colon cancer Z85.038 Active confirmed 189321064 Problem Abnormal mammogram of left breast R92.8 Active confirmed 403825241 Problem Essential hypertension I10 Active confirmed 84460656 Problem Anticoagulant long-term use Z79.01 Active confirmed 043087671 Problem LAURITA (obstructive sleep apnea) G47.33 Active confirm ed 25358773 Problem Left leg paresthesias R20.2 Active confirmed 00308862160964381 Problem Mixed hyperlipidemia E78.2 Active confirmed 546167536 Problem Intestinal malabsorption, unspecified type K90.9 Active confirmed 477255196 Problem S/P patent foramen ovale closure Z87.74 Active confirmed 058695445 ALLERGIES No Known Allergies ENCOUNTERS from 1960 to 2021-09-06 Encounter Location Date Provider Diagnosis [facility] [address] Floor [phone] [place] [address] Aug, Moises Stallings Lumbar radiculopathy M54.16 ; Myalgia M79.10 and Myofascial pain syndrome M79.18 IMMUNIZATIONS Vaccine Route Administration Date Status COVID-19 dose #2 given elsewhere Unspecified Unknown May Administered COVID-19 dose #1 given elsewhere Unspecified Unknown May Administered Influenza 6mo & up Fluzone Unknown January 24, 2016 Refus ed SOCIAL HISTORY Tobacco Use: Social History Observation Description Date Details (start date - stop date) Never Smoker Sex Assigned At : Social History Observation Description Sex Assigned At Unknown Education: Question Answer Notes Level of Education: Finished College Associates Degree Audit Question Answer Notes Total Score: 0 Interpretation: Alcohol Education Taoist: Question Answer Notes Taoist 21 Anabaptism Drug and Alcohol Question Answer Notes Total Score: 0 Interpretation: No problems reported Alcohol Screening: Question Answer Notes Did you have a drink containing alcohol in the past year? No Points 0 Interpretation Negative Tobacco Use: Question Answer Notes Are you a: never smoker REASON FOR REFERRAL No Information VITAL SIGNS Weight 218.0 lbs Aug, Weight-kg 98.88 kg Aug, Height 64 in Aug, BMI 37.42 kg/m2 Aug, Heart Rate 77 /min Aug, Respiratory Rate 18 /min Aug, Temperature 97.1 degrees Fahrenheit Aug, Oximetry 96% Aug, Blood pressure systolic 149 mm Hg Aug, Blood pressure diastolic 70 mm Hg Aug, MEDICATIONS Medication SIG (Take, Route, Frequency, Duration) Notes Start Da te End Date Status Crestor 10 MG 1 tablet Orally Once a day Active Lisinopril 10 MG 1 tablet Orally Once a day for 90 days Active May Have - Iron infusions intravenously Q 6 mos Active Multivitamin Adults - as directed Orally daily Active Calcium + D3 600-200 MG-UNIT 1 tablet with a meal Orally Once a day Active Gabapentin 300 MG 1 capsule Orally for pain q8h TID for 30 Days March, Active Amoxicillin 500 MG 4 tabs prior to dental appointments Oral ly every 8 hrs not applicable to this procedure Active Plavix 75 MG 1 tablet Orally Once a day Not-Taking Trintellix 20 MG 1 tablet Orally Once a day Active busPIRone HCl 10 MG 1 tablet Orally bid Active Aspirin 81 MG 1 tablet Orally Once a day Active Omeprazole 40 MG 1 capsule Orally bid for 90 days Active PROCEDURES No Information RESULTS No Results REASON FOR VISIT LBP/Does well w TPI MEDICAL (GENERAL) HISTORY Type Description Date Medical History HTN Medical History Hx anemia with iron deficency - Dr. Monge Medical History Obesity s/p Gastric Bypass Medical History Degenerative Disc Disease, c hronic low back pain, bilateral sciatica and radiculopathy - [facility] Pain Medical History Depression and anxiety - [facility] BH Medical History LAURITA - uses CPAP nightly; Dr. Mariana Persaud Medical History Neuropathy in left leg - Dr. Damaris Persaud Medical History Stroke 11/04/20 Medical History Hx Sutton's esophagus - Dr. Armendariz Medical History Hx colon cancer - Dr. Armendariz monitors with colonoscopy Q2H Medical History Hx RLS, resolved Medical History PFO, closed in 01/[address] Franks; f cody with Dr. Pineda Medical History History of bilateral rotator cuff repairs - saw [facility] in the past Medical History HLD Medical History Prediabetes, A1c 6.0% in 05/2021 Medical History shingles vaccine 01/04/2021 Medical History pfizer 1st covid shot : 01/28 2nd : 02/18/2021 3rd: 08/20/2021 Surgical History krishan removed from left side of fac e 1971 Surgical History Tonsillectomy 1981 Surgical History Hysterectomy for menorrhagia 02/1995 Surgical History Cholecystectomy 02/1995 Surgical History Bladder repair 1991, 05/2003 Surgical History Gastric Bypass 04/2008 Surgical History Left rotator cuff surgery 2013 Surgical History Hemorrhoidectomy 2014 Surgical History Breast reduction 06/2015 Surgical History Colon Resection for Colon CA 2016 Surgical History Right rotator cuff repair and right wenceslao p repair 09/2019 Surgical History Upper endoscopy - normal, Dr. Armendariz 12/2020 Surgical History Colonoscopy - normal, repeat in 2 years; Dr. Armendariz 12/2020 Surgical History PFO closure at [facility], Dr. Franks Surgical History Left breast biopsy (benign) 2020 Hospitalization History surgery related Hospitalization History "Micro Stroke" 11/04/20 Goals Section No Information Health Concerns No Information MEDICAL EQUIPMENT No Information MENTAL STATUS No Information FUNCTIONAL STATUS No Information ASSESSMENTS Encounter Date Diagnosis Assessment Notes Treatment Notes Treatm ent Clinical Notes Aug, Lumbar radiculopathy (ICD-10 - M54.16) I discussed alternatives with Ms. Harris. She did trigger points that helped her well but she still have some pain down the left leg. I feel that the patient should have an updated MRI. She states that she just had one done at the orthopedic. I will order x-rays AP and lateral on flexion and extension to check the stability of the spine. I will follow up with her next available. She will call us if the pain comes back sooner and we will see her sooner. The patient reports understanding and agrees with the plan. I, Lupis Lopes, documented the above information acting as a scribe for Dr. Stallings. I have reviewed the above document, written by bernabe Bailey scribe, and I verify that it is accurate. Aug, Myalgia (ICD-10 - M79.10) Aug, Myofascial pain syndrome (ICD-10 - M79.18) PLAN OF TREATMENT Treatment Notes Assessment Notes Clinical Notes Lumbar radiculopathy I discussed alterna tives with Ms. Harris. She did trigger points that helped her well but she still have some pain down the left leg. I feel that the patient should have an updated MRI. She states that she just had one done at the orthopedic. I will order x-rays AP and lateral on flexion and extension to check the stability of the spine. I will follow up with her next available. She will call us if the pain comes back sooner and we will see her sooner. The patient reports understanding and agrees with the plan. I, Lupis Lopes, documented the above information acting as a scribe for Dr. Wero del angel. I have reviewed the above document, written by Lupis Lopes medical driver, and I verify that it is accurate. Treatment Notes Test Name Order Date [facility], Lumbosacral w/flex-ext 2021-08-30 Next Appt Details X-RAY ORDERED, Next available Reason:PSV , back pain Provider Name:Moises Stallings, 2021-11-22 02:45:00 PM, [address], , [place], [address], Provider Name:Karlene Ames, 2022-01-01 11:45:00 AM, [address] [place] [address], , [place], [address], Provider Name:Rozina Brown, 2022-01-11 01:00:00 PM, [address] [place] [address], , [place], [address], Follow Up:X-RAY ORDERED, Next availablePSV, back pain Insurance Providers Payer Name Payer Address Payer Phone Insured Name Patient Relati onship to Insured Coverage Start Date Coverage End Date MEDICARE Part A and B [address] [facility] [place] [address] CHRISTAL HARRIS self MEDICAID [employer] [address] [facility] [id number] CHRISTAL HARRIS self
--- OUTSIDE RECORDS SUMMARY | 2021-09-16 08:35 | CCD | Continuity of Care Document ---
Author Author Susy DAMON MD Organization Unknown Address [facility] [address] [place] [address] [address] Phone [phone] Care Team Providers Care Center Line Cutter Operator Name Role Phone Korin Lemus AUTM [phone] Problems Description No Information Available Social History Type Date Description Comments Sex Unknown ETOH Use Denies alcohol use Tobacco Use Start: Unknown Denies Smoking Allergies and adverse reactions Description No Known Drug Allergies Medications Active Medications SIG Qnty Indications Ordering Provide r Date Diclofenac Sodium 1% Gel apply to antione knees as directed one gram three times a day 300gm M17.0 Bru divya Quesada MD 12/29/2019 Tylenol With Codeine #3 300-30mg T ablets 1 tabs every 8 hours as needed for post op pain 30tabs An chelsie Damon MD 10/28/2019 Percocet 5-325mg Tablets 1 tab at bedtime as needed for post op pain 20tabs Zoe Marroquin 09/13/2019 Gabapentin 100mg Capsules 1 tab po tid (may combine with other gabapentin script per Anm) 90caps Z47.89 Benoit Damon MD 08/17/2019 Buspirone HCL Tablets 1 by mouth twice a day Unknown Vitamin D Capsules 1 by mout h a day Unknown Gabapentin 300mg Capsules 1 tab po qhs for one week, then one tab po bid for one week then one tab po tid Unknown Ropinirole HCL 1mg Tablets 1 tab by mouth every day at bedtime Unknown Crestor 10mg Tablets 1 by mouth every day Unknown Viibryd 40mg Tablets Unknown Methylprednisolone 4mg Tablets dose lawrence, take as directed on sheet Unknown Immunizations Description No Information Available Vital Signs Date Vital Result Comment 09/22/2019 9:57am Body Temperature 97.6 F 08/12/2019 3:24pm Body Temperature 98.2 F Height 62.75 inches 5'2.75" Weight 228.38 lb BMI (Body Mass Index) 40.8 kg/m2 Results Description No Information Available Procedures Description No Information Available Medical Devices Description No Information Available Encounters Description No Information Available Assessments Description No Information Available Plan of Treatment 03/31/2020 - Benoit Damon MD* M17.12 Unilateral primary osteoarthritis, left knee * Z47.89 Encounter for other orthopedic aftercare* Follow up:* prn Functional Status Description No Information Available Mental Status Description No Information Available Referrals Description No Information Available
--- OUTSIDE RECORDS SUMMARY | 2021-09-16 08:35 | CCD | Continuity of Care Document ---
Author Author Susy WHALEY PA Organization Unknown Address [address] [place] [address] [place] [address] Phone [phone] Care Team Providers Care Heel Builder Name Role Phone Gisela Franks MD AUTM [phone] Betty Persaud MD AUTM [phone] Karlene Ames MD AUTM [phone] Anali Barth DO AUTM Problems Active Problems [...] Exercise Type/Frequency Does housework twice a w [place] Exercise Limitations Other Pain in low er [...] H/L Range Note Complete Blood Count 08/30/2021 [facility] enter [phone] White Blood Count 5.8 10 Normal 4.0-10.0 [...] % Normal 0-0 Comprehensive Metabolic Profil 08/30/2021 [facility] [phone] Glucose, Fasting 88 mg/dL Normal 70-100 Blood [...] 1.2 Normal 1.2-2.2 Laboratory test finding 08/30/2021 [facility] [phone] NT-Pro BNP 21 pg/mL Normal <125 CBC without Differential 06/28/2021 [facility] - not inter faced (315)- - White Blood Count 6.2 5.0-10.0 Red Blood Count 4.48 4.00-5.40 Platelets 250 172-450 Hemoglobin 12.4 Hematocrit 39.0 CMP 06/28/2021 [facility] - not interfaced (315)- - Albumin [...] Little GFR Left ESRD GFR <15 on EXTERMINATION INSPECTOR Procedures Date Code Description Status 08/28/2021 11911 Office/Outpatient Established Mo d MDM 30-39 Min Completed 08/28/2021 67698 ECG 12-Lead Completed 07/19/2021 64607 Chronic Care MGMT 20 Mins Clinical Staff Time Per Calendar Month Completed 06/19/2021 38425 Chronic Care MGMT 20 Mins Clinical Staff Time Per Calendar Month Completed 06/19/2021 79208 Chronic Care Management Services Ea Addl 20 Min Completed 05/24/2021 33973 Complex Chronic Care MGMT Servic e Ea Addl 30 Min Completed 05/24/2021 50857 Complex Chronic Care Management SVC 1St 60 Min Completed 04/18/2021 61323 Complex Chronic Care MGMT Servic e Ea Addl 30 Min Completed 04/18/2021 23615 Complex Chronic Care Management SVC 1St 60 [...] (severe) obesity due to e xcess calories Keal Pineda MD 05/24/2021 R00.2 Palpitations Kael Pineda [...]
--- OUTSIDE RECORDS SUMMARY | 2021-09-16 08:35 | CCD | Continuity of Care Document ---
Author Author Susy OBRIEN DPM Organization Unknown Address [address] [place] [address], [address] [place] [address] Phone [phone] Care Team Providers Care Size Roller Operator Name Role Phone Korin Lemus N.P. AUTM [phone] MD Karlene Ames AUTM [phone] [employer]/[facility] AUTM [phone] Problems Active Problems Provider Date Plantar fascial [...] Buspirone HCL Unknown Ibuprofen Unknown Requip Unknown Plavix Unknown Zolpidem Tartrate 10mg Tablets Unknown Zolpidem [...] Inject Triamcinolone Acetonide 10 ML, ND C 3057-5761-52 Injection Lorenzo mclaughlin, DP 07/08/2012 Inject Dexamthosone Phosphate 99409-751- 30 Injection Lorenzo Obrien, [facility] 012 Inject Triamcinolone Acetonide 10 ML, ND C 6869-9857-22 Injection Lorenzo mclaughlin, DP 02/19/2012 Inject Dexamthosone Phosphate 39669-918- 30 Injection Lorenzo Obrien, DP 012 Inject Triamcinolone Acetonide 10 ML, ND C 3915-3628-23 Injection Lorenzo mclaughlin, DP 09/07/2007 Inject Dexamthosone Phosphate 82947-699- 30 Injection Lorenzo Obrien, [facility] 007 Inject Triamcinolone Acetonide 10 ML, ND C 3112-1454-42 Injection Lorenzo mclaughlin, DP 04/27/2007 Inject Dexamthosone Phosphate 26046-022- 30 Injection Lorenzo Obrien, [facility] 007 Inject Triamcinolone Acetonide 10 ML, ND C 8672-9119-09 Injection Lorenzo mclaughlin, DP 08/20/2006 Inject Dexamthosone Phosphate 32219-547- 30 Injection Lorenzo Obrien, [facility] 006 Inject Triamcinolone Acetonide 10 ML, ND C 5884-9213-13 Injection Lorenzo mclaughlin, DP 04/03/2005 Inject Dexamthosone Phosphate 44779-856- 30 Injection Lorenzo Obrien, [facility] 005 Immunizations Description No Information Available Vital [...] Information Available Procedures Date Code Description Status 07/06/2021 72940 Office/Outpatient Established SF MDM 10-19 Min Completed 05/04/2021 86487 Office/Outpatient Established SF MDM 10-19 Min Completed Medical Devices Description No Information Available Encounters Type Date Location Provider Dx Diagnosis Office Visit 07/06/2021 8:00a [facility] Benoit Obrien DPM M65.879 Other synovitis and tenosynovitis, unsp ankle and foot Office Visit 05/04/2021 8:00a [facility] Benoit Obrien DPM M65.871 Other synovitis and tenosynovitis, right ankle and foot Assessments Date Code Description Provider 07/06/2021 M65.879 Other synovitis and tenosynovitis, unspecified ankle and foot Benoit Obrien DPM 05/04/2021 M65.871 Other synovitis and tenosynoviti s, right ankle and foot Benoit Obrien DPM Plan of Treatment Future Appointment(s):* 11/16/2021 8:00 am - Benoit Obrien DPM at [facility] Functional Status Description No Information Available Mental Status Description No Information Available Referrals Description No Information Available
--- OUTSIDE RECORDS SUMMARY | 2021-09-16 08:36 | CCD ---
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.17 Active confirmed 53580058 Problem Other chronic pain G89.29 Active confirmed 8 4253899 Problem Neuropathy G62.9 Active confirmed 395322718 Problem Depression with anxiety F41.8 Active confirmed 984177650 Problem Vitamin D deficiency E55.9 Active confirmed 01132558 Problem Iron deficiency anemia, unspecified iron deficiency an emia type D50.9 Active confirmed 43293540 Problem History of colon cancer Z85.038 Active confirmed 186323890 Problem Abnormal mammogram of left breast R92.8 Active confirmed 337024478 Problem Essential hypertension I10 Active confirmed 12177392 Problem Anticoagulant long-term use Z79.01 Active confirmed 537628842 Problem LAURITA (obstructive sleep apnea) G47.33 Active confirm ed 91854947 Problem Left leg paresthesias R20.2 Active confirmed 77347508508686623 Problem Mixed hyperlipidemia E78.2 Active confirmed 043812491 Problem Intestinal malabsorption, unspecified type K90.9 Active confirmed 820254170 Problem S/P patent foramen ovale closure Z87.74 Active confirmed 026055751 ALLERGIES No Known Allergies ENCOUNTERS from 1960 to 2021-07-05 Encounter Location Date Provider Diagnosis [facility] [address] [place] [address] [place] [address] Jun, Anali Barth IMMUNIZATIONS Vaccine Route Administration Date Status COVID-19 [...] Notes Total Score: 0 Interpretation: Alcohol Education Gnosticism: Question Answer Notes Gnosticism 21 Caodaism Drug and Alcohol Question Answer Notes Total [...] Notes Start Da te End Date Status Plavix 75 MG 1 tablet Orally Once a day Active Lisinopril 10 MG 1 tablet Orally Once a day for 90 days Active Calcium + D3 600-200 MG-UNIT 1 tablet with a meal Orally Once a day Active Omeprazole 40 MG 1 capsule Orally bid for 90 days Active May Have - Iron infusions intravenously Q 6 mos Active Trintellix 20 MG 1 tablet Orally Once a day Active Amoxicillin 500 MG 4 tabs prior to dental appointments Oral ly every 8 hrs not applicable to this procedure Active Crestor 10 MG 1 tablet Orally Once a day Active Gabapentin 300 MG 1 capsule Orally for pain q8h TID for 30 Days March, Active Aspirin 81 MG 1 tablet Orally Once a day Active busPIRone HCl 10 MG 1 tablet Orally bid Active Multivitamin Adults - as directed Orally Active PROCEDURES No Information RESULTS No Results REASON FOR VISIT US L breast Bx with clip and L mammo [facility] MEDICAL (GENERAL) HISTORY Type Description Date Medical History HTN Medical History Hx anemia with iron deficency - Dr. Monge Medical History Obesity s/p Gastric Bypass Medical History Degenerative Disc Disease, c hronic low back pain, bilateral sciatica and radiculopathy - [facility] Pain Medical History Depression and anxiety - [facility] Medical History LAURITA - uses CPAP nightly; Dr. Mariana Persaud Medical History Neuropathy in left leg - Dr. Damaris Persaud Medical History Stroke 11/04/20 Medical History Hx Sutton's esophagus - Dr. Armendariz Medical History Hx colon cancer - Dr. Armendariz monitors with colonoscopy Q2H Medical History Hx RLS, resolved Medical History PFO, closed in 01/[address] Franks; mian ross with Dr. Pineda Medical History History of bilateral rotator cuff repairs - saw [facility] in the past Medical History HLD Medical History Prediabetes, A1c 6.0% in 05/2021 Medical History shingles vaccine 01/04/2021 Medical History pfizer 1st covid shot : 01/28/2021 2nd : 02/18/2021 Surgical History krishan removed from left side [...] Armendariz 12/2020 Surgical History PFO closure at [facility], Dr. Franks Hospitalization History surgery related Hospitalization History "Micro Stroke" 11/04/20 Goals Section No Information Health Concerns No Information MEDICAL EQUIPMENT No Information MENTAL STATUS No Information FUNCTIONAL STATUS No Information ASSESSMENTS No Information PLAN OF TREATMENT Next Appt Details Provider Name:Anali Barth, 31-07-08 08:00:00 AM, [address] [facility], , [place], [address], Provider Name:Moises Stallings, 2021-08-30 11:00:00 AM, [address], , [place], [address], Provider Name:Karlene Ames, 2022-01-01 11:45:00 AM, [address] [facility], , [place], [address], Insurance Providers Payer Name Payer Address Payer Phone Insured Name Patient Relati onship to Insured Coverage Start Date Coverage End Date MEDICAID [employer] [address] [facility] [id number] [place] MEDICARE Part A and B [address] [facility] [address] [place] [place] self
--- OUTSIDE RECORDS SUMMARY | 2021-09-16 08:36 | CCD ---
Author Author [facility] Organization [facility] Address Unknown Phone Unavailable Care Team Providers Care Rock Duster Name Role Phone Rozina Brown Unavailable PROBLEMS Type Condition ICD9-CM Code [id number] Code Onset Dates Condition S tatus W/U Status Risk SNOMED Code Notes Problem Intervertebral disc disorder with radiculopathy of lumbosacral region M51.17 Active confirmed 00457335 Problem Other chronic pain G89.29 Active confirmed 8 9832864 Problem Neuropathy G62.9 Active confirmed 150016532 Problem Depression with anxiety F41.8 Active confirmed 845891031 Problem Vitamin D deficiency E55.9 Active confirmed 52314946 Problem Iron deficiency anemia, unspecified iron deficiency an emia type D50.9 Active confirmed 26857153 Problem History of colon cancer Z85.038 Active confirmed 885794108 Problem Abnormal mammogram of left breast R92.8 Active confirmed 307697084 Problem Essential hypertension I10 Active confirmed 23388894 Problem Anticoagulant long-term use Z79.01 Active confirmed 944011885 Problem LAURITA (obstructive sleep apnea) G47.33 Active confirm ed 48590582 Problem Left leg paresthesias R20.2 Active confirmed 49582315366645199 Problem Mixed hyperlipidemia E78.2 Active confirmed 473554132 Problem Intestinal malabsorption, unspecified type K90.9 Active confirmed 177148241 Problem S/P patent foramen ovale closure Z87.74 Active confirmed 311354074 ALLERGIES No Known Allergies ENCOUNTERS from 1960 to 2021-07-11 Encounter Location Date Provider Diagnosis [facility] Breast [facility] [address] [place] [address] [place] [address] Jun, Rozina Rodriguezc Abnormal mammogram of left b reast R92.8 ; Family history of cancer Z80.9 ; Genetic testing Z13.79 and Anticoagulant long-term use Z79.01 IMMUNIZATIONS Vaccine Route Administration Date Status COVID-19 [...] Notes Total Score: 0 Interpretation: Alcohol Education Zoroastrianism: Question Answer Notes Zoroastrianism 21 Denominational Drug and Alcohol Question Answer Notes Total Score: 0 Interpretation: No problems reported Alcohol Screening: Question Answer Notes Did you have a drink containing alcohol in the past year? No Points 0 Interpretation Negative Tobacco Use: Question Answer Notes Are you a: never smoker REASON FOR REFERRAL No Information VITAL SIGNS Weight 217 lbs Jun, Weight-kg 98.43 kg Jun, Height 64 in Jun, BMI 37.24 kg/m2 Jun, Temperature 97.5 degrees Fahrenheit Jun, MEDICATIONS Medication SIG (Take, Route, Frequency, Duration) Notes Start Da te End Date Status Crestor 10 MG 1 tablet Orally Once a day Active Lisinopril 10 MG 1 tablet Orally Once a day for 90 days Active May Have - Iron infusions intravenously Q 6 mos Active Trintellix 20 MG 1 tablet Orally Once a day Active Calcium + D3 600-200 MG-UNIT 1 tablet with a meal Orally Once a day Active Omeprazole 40 MG 1 capsule Orally bid for 90 days Active Amoxicillin 500 MG 4 tabs prior to dental appointments Oral ly every 8 hrs not applicable to this procedure Active Gabapentin 300 MG 1 capsule Orally for pain q8h TID for 30 Days March, Active busPIRone HCl 10 MG 1 tablet Orally bid Active Plavix 75 MG 1 tablet Orally Once a day Active Aspirin 81 MG 1 tablet Orally Once a day Active Multivitamin Adults - as directed Orally Active PROCEDURES No Information RESULTS No Results REASON FOR VISIT post L US bx MEDICAL (GENERAL) HISTORY Type Description Date Medical History HTN Medical History Hx anemia with iron deficency - Dr. Monge Medical History Obesity s/p Gastric Bypass Medical History Degenerative Disc Disease, c hronic low back pain, bilateral sciatica and radiculopathy - [facility] Pain Medical History Depression and anxiety - [facility] BH Medical History LAURITA - uses CPAP [...] removed from left side of fac e 1970 Surgical History Tonsillectomy 1981 Surgical History Hysterectomy [...] Armendariz 12/2020 Surgical History PFO closure at [facility], Dr. Franks Hospitalization History surgery related Hospitalization History "Micro Stroke" 11/04/20 Goals Section No Information Health Concerns No Information MEDICAL EQUIPMENT No Information MENTAL STATUS No Information FUNCTIONAL STATUS No Information ASSESSMENTS Encounter Date Diagnosis Assessment Notes Treatment Notes Treatm ent Clinical Notes Jun, Abnormal mammogram of left breast (ICD-10 - R92. 8) s/p Left breast ultrasound guided biopsy with Dr. Barth on 07/04/2021 I reviewed the pathology report with Ms. Harris and explained that no malignancy was identified in the specimen. Pathology showed dense fibrotic tissue with no definitive breast tissue identified. I informed patient that no surgical intervention is warranted at this time, however, I would like to get Left breast mammogram and Ultrasound in 6 month to assure stability of the lesion. If no changes are seen at 6 month post biopsy, then patient will be able to go back to her regular screening mammography. All questions were answered. Patient agrees with the plan Jun, Family history of cancer (ICD-10 - Z80.9) Patient participated in our cancer screening program and she was identified as a person who may be eligible for genetic testing due to her family history. Her TC score is 8.5% Jun, Genetic testing (ICD-10 - Z13.79) Patient participated in our cancer screening program and she was identified as a person who may be eligible for genetic testing due to her family history. Kit was given previously Jun, Anticoagulant long-term use (ICD-10 - Z79.01) Patient is on Aspirin and Plavix. This will need to be stopped prior to her procedure. I will discuss with Dr. Pineda and Dr. Damaris Garnett for clearance PLAN OF TREATMENT Treatment Notes Assessment Notes Clinical Notes Abnormal mammogram of left breast s/p Left breast ultr asound guided biopsy with Dr. Barth on 07/04/2021I reviewed the pathology report with Ms. Harris and explained that no malignancy was identified in the specimen. Pathology showed dense fibrotic tissue with no definitive breast tissue identified.I informed patient that no surgical intervention is warranted at this time, however, I would like to get Left breast mammogram and Ultrasound in 6 month to assure stability of the lesion. If no changes are seen at 6 month post biopsy, then patient will be able to go back to her regular screening mammography.All questions were answered. Patient agrees with the plan Family history of cancer Patient participated in our cancer screening program and she was identified as a person who may be eligible for genetic testing due to her family history.Her TC score is 8.5% Genetic testing Patient participated in our cancer screening program and she was identified as a person who may be eligible for genetic testing due to her family history.Kit was given previously Anticoagulant long-term use Patient is on Aspirin and Plavix. This will need to be stopped prior to her procedure. I will discuss with Dr. Pineda and Dr. Damaris Garnett for clearance Future Test Test Name Order Date [facility] DIAGNOSTIC UNILATERAL MAMMO (Ultrasound if indica seferino) [id number] Next Appt Details 01/11/2022 Reason:six-month follow-up, nee ds imaging first Provider Name:Moises Stallings, 2021-08-30 11:00:00 AM, [address], , [place], [address], Provider Name:Karlenemarciano Ames, 2022-01-01 11:45:00 AM, [address] [facility], , [place], [address], Provider Name:Rozina Brown, 2022-01-11 01:00:00 PM, [address] [facility], , [place], [address], Follow Up:01/11/2022ix-month follow-up, needs imaging first Insurance Providers Payer Name Payer Address Payer Phone Insured Name Patient Relati onship to Insured Coverage Start Date Coverage End Date MEDICARE Part A and B [address] [facility] [id number] [place] MEDICAID [facility] [address] [facility] [id number] [phone] [place] self
--- OUTSIDE RECORDS SUMMARY | 2021-09-16 08:36 | CCD | Continuity of Care Document ---
Author Author Susy PINEDA MD Organization Unknown Address [address] [place] [address], [facility] [address] Phone [phone] Care Team Providers Care Internet Consultant Name Role Phone Gisela Franks MD AUTM [phone] Betty Persaud MD AUTM [phone] Karlene Ames MD AUTM [phone] Anali Barth DO AUTM Problems Active Problems [...] Date Facility Test Result H/L Range Note Basic Metabolic Panel 01/11/2021 [facility] - not interfac ed (315)- - Glucose 109 High 70-100 Blood Urea Nitrogen 17 7-18 Creatinine 0.70 0.6-1.0 Sodium 143 136-145 Potassium 4.0 3.5-5.1 Chloride 110 High 98-107 Carbon Dioxide 28 21-32 Calcium 9.2 8.2-9.6 GFR (Calculated) >60.0 >32 CBC without Differential 01/11/2021 [facility] - not inter faced (315)- - White Blood Count 7.1 4.0-10.0 Red Blood Count 4.30 4.00-5.40 Platelets 241 150-450 Hemoglobin 12.1 Hematocrit 38.7 Procedures Date Code Description Status 05/24/2021 65224 Complex Chronic Care MGMT Servic e Ea Addl 30 Min Completed 05/24/2021 71054 Complex Chronic Care Management SVC 1St 60 Min Completed 04/18/2021 90960 Complex Chronic Care MGMT Servic e Ea Addl 30 Min Completed 04/18/2021 93156 Complex Chronic Care Management SVC 1St 60 Min Completed 01/16/2021 98226 Multi Event Recorder Interpretat ion Completed 01/16/2021 69402 Multi Event Recorder Hookup Comp leted Medical Devices Description No Information Available Encounters Type Date Location Provider Dx Diagnosis Office Visit 05/24/2021 5:53p Main Office Kael Pineda MD I10 Essential (primary) hypertension E66.01 Morbid (severe) obesity due to excess calories R00.2 Palpitations Office Visit 04/18/2021 2:28p Main Office Kael Pineda MD R00.2 Palpitations I10 Essential (primary) hyperten josiah E66.01 Morbid (severe) obesity due to excess calories Assessments Date Code Description Provider 05/24/2021 I10 Essential (primary) hypertension Kael Pineda MD 05/24/2021 E66.01 Morbid (severe) obesity due to e xcess calories Kael Pineda MD 05/24/2021 R00.2 Palpitations Kael Pineda MD 04/18/2021 R00.2 Palpitations Kael Pineda MD 04/18/2021 I10 Essential (primary) hypertension Kael Pineda MD 04/18/2021 E66.01 Morbid (severe) obesity due to e xcess calories Kael Pineda MD 01/16/2021 R00.2 Palpitations Holter/Event/Tel emetry Plan of Treatment Future Appointment(s):* 08/23/2021 11:15 am - Kael Pineda MD at Main Office Functional Status Functional Condition Comment Date Status Independent with all ADL's Activ e Mental Status Description No Information Available Referrals Description No Information Available
--- OUTSIDE RECORDS SUMMARY | 2021-09-16 08:36 | CCD | Continuity of Care Document ---
Author Author Susy PINEDA MD Organization Unknown Address [address] [place] [address], [facility] [address] Phone [phone] Care Team Providers Care Enrollment Specialist Name Role Phone Gisela Franks MD AUTM [phone] Betty Persaud MD AUTM [phone] Kralene Ames MD AUTM [phone] Anali Barth DO AUTM Problems Active Problems [...] H/L Range Note Basic Metabolic Panel 01/11/2021 [facility] - not interfac ed (315)- - Glucose 109 High 70-100 Blood Urea Nitrogen 17 7-18 Creatinine 0.70 0.6-1.0 Sodium 143 136-145 Potassium 4.0 3.5-5.1 Chloride 110 High 98-107 Carbon Dioxide 28 21-32 Calcium 9.2 8.2-9.6 GFR (Calculated) >60.0 >32 CBC without Differential 01/11/2021 [facility] - not inter faced (315)- - White Blood Count 7.1 4.0-10.0 Red Blood Count 4.30 4.00-5.40 Platelets 241 150-450 Hemoglobin 12.1 Hematocrit 38.7 Procedures Date Code Description Status 05/24/2021 26696 Complex Chronic Care MGMT Servic e Ea Addl 30 Min Completed 05/24/2021 70895 Complex Chronic Care Management SVC 1St 60 Min Completed 04/18/2021 74115 Complex Chronic Care MGMT Servic e Ea Addl 30 Min Completed 04/18/2021 16184 Complex Chronic Care Management SVC 1St 60 Min Completed 01/16/2021 21881 Multi Event Recorder Interpretat ion Completed 01/16/2021 63484 Multi Event Recorder Hookup Comp leted Medical [...]
--- OUTSIDE RECORDS SUMMARY | 2021-09-16 08:36 | CCD | Continuity of Care Document ---
Author Author Susy OBRIEN DPM Organization Unknown Address [address] [place] [address], [address] [place] [address] Phone [phone] Care Team Providers Care Hospice Home Care Coordinator Name Role Phone Korin Lemus N.P. AUTM [phone] MD Karlene Ames AUTM [phone] [employer]/[facility] AUTM [phone] Problems Active Problems Provider Date Plantar fascial [...] SIG Qnty Indications Ordering Provide r Date Abilify 5mg Tablets Unknown Omeprazole Unknown Aspirin 81 Unknown Gabapentin Unknown Buspirone HCL Unknown Ibuprofen Unknown Requip Unknown Plavix Unknown Zolpidem Tartrate 10mg Tablets Unknown Zolpidem Tartrate ER 12.5mg Tablets ER Unknown Crestor 10mg Tablets Unknown Trazodone HCL 50mg Tablets Unknown Viibryd 40mg Tablets Unknown Pristiq 50mg Tablets ER 24HR Unknown Zetia 10mg Tablets Unknown Pristiq 100mg Tablets ER 24HR Unknown Lisinopril/Hydrochlorothiazide 10-12.5mg Tablets Unknown Furosemide 40mg Tablets Unknown Furosemide 20mg Tablets Unknown Pantoprazole Sodium 40mg Tablets DR Unknown Medications Administered in Office Medication SIG Qnty Indications Ordering Provider Date Inject Triamcinolone Acetonide 10 ML, ND C 5122-8649-23 Injection Lorenzo mclaughlin, DPM 07/08/2012 Inject Dexamthosone Phosphate 53802-001- 30 Injection Lorenzo Obrien, DPM 012 Inject Triamcinolone Acetonide 10 ML, ND C 7944-8083-86 Injection Lorenzo mclaughlin, DPM 02/19/2012 Inject Dexamthosone Phosphate 06184-518- 30 Injection Lorenzo Obrien, DPM 012 Inject Triamcinolone Acetonide 10 ML, ND C 9962-1548-81 Injection Lorenzo mclaughlin, DPM 09/07/2007 Inject Dexamthosone Phosphate 89388-683- 30 Injection Lorenzo Obrien, DPM 007 Inject Triamcinolone Acetonide 10 ML, ND C 1276-6010-51 Injection Lorenzo mclaughlin, DPM 04/27/2007 Inject Dexamthosone Phosphate 46081-031- 30 Injection Lorenzo Obrien, DPM 007 Inject Triamcinolone Acetonide 10 ML, ND C 6366-1370-84 Injection Lorenzo mclaughlin, DPM 08/20/2006 Inject Dexamthosone Phosphate 28877-566- 30 Injection Lorenzo Obrien, DPM 006 Inject Triamcinolone Acetonide 10 ML, ND C 4800-6640-18 Injection Lorenzo mclaughlin, DPM 04/03/2005 Inject Dexamthosone Phosphate 64839-199- 30 Injection Lorenzo Obrien, DPM 005 Immunizations Description No Information Available Vital [...] Available Procedures Date Code Description Status 07/06/2021 74959 Office/Outpatient Established SF MDM 10-19 Min Completed 05/04/2021 25754 Office/Outpatient Established SF MDM 10-19 Min Completed 03/08/2021 80035 Office/Outpatient New Low MDM 30 -44 Minutes Completed 03/08/2021 47046 X-Ray Foot Complete Completed 03/08/2021 89901 X-Ray Foot Complete Completed 03/08/2021 56026 Strapping Foot Or Ankle Complete d Medical Devices Description No Information Available Encounters Type Date Location Provider Dx Diagnosis Office Visit 07/06/2021 8:00a [place] [facility] Benoit Obrien DPM M65.879 Other synovitis and tenosynovitis, unsp ankle and foot Office Visit 05/04/2021 8:00a [place] [facility] Benoit Obrien DPM M65.871 Other synovitis and tenosynovitis, right ankle and foot Office Visit 03/08/2021 8:30a [place] Benoit Obrien DPM M72.2 Plantar fascial fibromatosis S92.334D Nondisp fx of 3rd metatarsal bone, r ft, 7thD M72.2 Plantar fascial fibromatosis M21.6x1 Other acquired deformities o f right foot M21.6x2 Other acquired deformities o f left foot Assessments Date Code Description Provider 07/06/2021 M65.879 Other synovitis and tenosynovitis, unspecified ankle and foot Benoit Obrien DPM 05/04/2021 M65.871 Other synovitis and tenosynoviti s, right ankle and foot Benoit Obrien DPM 03/08/2021 M72.2 Plantar fascial fibromatosis And kris Obrien DPM 03/08/2021 S92.334D Nondisplaced fractur e of third metatarsal bone, right foot, subsequent encounter for fracture with routine healing Benoit Obrien, ABILIO 03/08/2021 M72.2 Plantar fascial fibromatosis And kris Obrien DPM 03/08/2021 M21.6x1 Other acquired deformities of ri ght foot Benoit Obrien DPM 03/08/2021 M21.6x2 Other acquired deformities of le ft foot Benoit Obrien DPM Plan of Treatment Future Appointment(s):* 09/07/2021 8:00 am - Benoit Obrien DPM at [facility] Functional Status Description No Information Available Mental Status Description No Information Available Referrals Description No Information Available
--- OUTSIDE RECORDS SUMMARY | 2021-09-16 08:36 | CCD ---
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 Active confirmed 66115431 Problem Other chronic pain G89.29 Active confirmed 8 7701416 Problem Neuropathy G62.9 Active confirmed 992904622 Problem Depression with anxiety F41.8 Active confirmed 375748376 Problem Vitamin D deficiency E55.9 Active confirmed 04969756 Problem Iron deficiency anemia, unspecified iron deficiency an emia type D50.9 Active confirmed 69704964 Problem History of colon cancer Z85.038 Active confirmed 601477867 Problem Abnormal mammogram of left breast R92.8 Active confirmed 203402963 Problem Essential hypertension I10 Active confirmed 60317339 Problem Anticoagulant long-term use Z79.01 Active confirmed 095278677 Problem LAURITA (obstructive sleep apnea) G47.33 Active confirm ed 24385738 Problem Left leg paresthesias R20.2 Active confirmed 87960496884679102 Problem Mixed hyperlipidemia E78.2 Active confirmed 174073885 Problem Intestinal malabsorption, unspecified type K90.9 Active confirmed 909647097 Problem S/P patent foramen ovale closure Z87.74 Active confirmed 145968220 ALLERGIES No Known Allergies ENCOUNTERS from 1960 to 2021-06-29 Encounter Location Date Provider Diagnosis [facility] [address] [place] [address] [place] [address] Jun, Anali Barth IMMUNIZATIONS Vaccine Route Administration [...] Notes Total Score: 0 Interpretation: Alcohol Education Pentecostal: Question Answer Notes Pentec[employer]al 21 [employer] Drug and Alcohol Question Answer Notes Total [...] Information RESULTS No Results REASON FOR VISIT Genetic results and hold blood thinner pre-bx. MEDICAL (GENERAL) HISTORY Type Description Date Medical History HTN Medical History Hx anemia with iron deficency - Dr. Monge Medical History Obesity s/p Gastric Bypass Medical History Degenerative Disc Disease, c hronic low back pain, bilateral sciatica and radiculopathy - [facility] Pain Medical History Depression and anxiety - [facility] BH Medical History LAURITA - uses [...] Armendariz 12/2020 Surgical History PFO closure at [facility], Dr. Franks Hospitalization History surgery related Hospitalization History "Micro Stroke" 11/04/20 Goals Section No Information Health Concerns No Information MEDICAL EQUIPMENT No Information MENTAL STATUS No Information FUNCTIONAL STATUS No Information ASSESSMENTS No Information PLAN OF TREATMENT Next Appt Details Provider Name:Anali Barth, 30-06-25 08:00:00 AM, [address] [facility], , [place], [address], Provider Name:Anali Barth, 31-07-08 08:00:00 AM, [address] [facility], , [place], [address], Provider Name:Moises Stallings, 2021-08-30 11:00:00 AM, [address], , [place], [address], Provider Name:Karlene Ames, 2022-01-01 11:45:00 AM, [address] [facility], , [place], [address], Insurance Providers Payer Name Payer Address Payer Phone Insured Name Patient Relati onship to Insured Coverage Start Date Coverage End Date MEDICAID [place] Smarter Agent Mobile [address] [facility] [id number] [place] self MEDICARE Part A and B [address] [facility] [address] [place] self
--- OUTSIDE RECORDS SUMMARY | 2021-09-16 08:36 | CCD | Continuity of Care Document ---
Author Organization Unknown Address Unknown Phone Unavailable Care Team Providers Care Back Tender Paper Machine Name Role Phone KORIN ATKINS NP AUTM [phone] Social History Type Date Description Comments Sex [...] DR Take One Tablet By Mouth Daily [facility] Buspirone HCL 10mg Tablets Take 1 [...] H/L Range Note Complete Blood Count 06/28/[address] [address] [phone] White Blood Count 6.2 10 Normal 4.0-10.0 [...] 36.0-66.0 Lymph % 26.5 % Normal 24.0-44.0 Heard % 7.6 % Normal 2.0-8.0 Eos % 1.9 % Normal 0.0-3.0 Baso % 0.5 % Normal 0.0-1.0 Immature Granulocyte % 0.3 % Normal 0-3.0 Nucleated Red Blood Cell % 0.0 % Normal 0-0 Neutrophils # 3.9 10 Normal 1.5-8.5 Lymph # 1.6 10 Normal 1.5-5.0 Heard # 0.5 10 Normal 0.0-0.8 Eos # 0.1 10 Normal 0.0-0.5 Baso # 0.0 10 Normal 0.0-0.2 Comprehensive Metabolic Profil 06/28/[address] [address] [phone] Glucose, Fasting 105 mg/dL High 70-100 Blood [...] Normal 1.2-2.2 Total Iron Binding Capacit 06/28/2021 [facility] [address] [place], [place] [id number] [phone] Iron (Fe) 57 g/dL Normal 50-170 Total Iron Binding Capacity 369 g/dL Normal 250-450 Percent Saturation 15.4 % Normal 13.2-45.0 Laboratory test finding [facility] [address] [place] [address] [phone] Ferritin 70 NG/ML Normal 8-252 Vitamin B12 Level 461 pg/mL Normal 247-911 2 CBC With Differential 02/05/[address] [address] [phone] White Blood Count 6.8 10 Normal 4.0-10.0 Red Blood Count 4.63 10 Normal 4.00-5.40 Hemoglobin 13.0 g/dL Normal 12.0-15.5 Hematocrit 41.6 % Normal 36.0-47.0 Mean Corpuscular Volume 89.8 fl Normal 80.0-96.0 Mean Corpuscular Hemoglobin 28.1 pg Normal 27.0-33.0 Mean Corpuscular HGB Conc 31.3 g/dL Low 32.0-36.5 Red Cell Distribution Width 13.7 % Normal 11.5-14.5 Platelet Count, Automated 245 10 Normal 150-450 Neutrophils % 61.7 % Normal 36.0-66.0 Lymph % 27.3 % Normal 24.0-44.0 Heard % 6.9 % Normal 2.0-8.0 Eos % 3.0 % Normal 0.0-3.0 Baso % 0.7 % Normal 0.0-1.0 Immature Granulocyte % 0.4 % Normal 0-3.0 Nucleated Red Blood Cell % 0.0 % Normal 0-0 Neutrophils # 4.2 10 Normal 1.5-8.5 Lymph # 1.9 10 Normal 1.5-5.0 Heard # 0.5 10 Normal 0.0-0.8 Eos # 0.2 10 Normal 0.0-0.5 Baso # 0.1 10 Normal 0.0-0.2 Cardiac Marker Panel 02/05/[address] [address] [phone] CPK Creatine Phosphokinase 64 U/L Normal 26-19 2 CK-MB Value Mass 1.2 NG/ML Normal <3.6 MB/CK Relative Index 1.88 Normal < Or =4 3 Troponin I < 0.02 NG/ML Normal < 0.10 4 Liver Profile 02/05/[address] [address] [phone] Ast/Sgot 11 U/L Normal 7-37 Alt/SGPT 26 U/L Normal 12-78 Alkaline Phosphatase 123 U/L High 45-117 Bilirubin,Total 0.4 mg/dL Normal 0.2-1.0 Bilirubin,Direct < 0.1 mg/dL Normal 0.0-0.2 Total Protein 7.0 GM/DL Normal 6.4-8.2 Albumin 4.0 GM/DL Normal 3.2-5.2 Albumin/Globulin Ratio 1.3 Normal 1.2-2.2 Basic Metabolic Profile 02/05/[address] [address] [phone] Glucose, Fasting 101 mg/dL High 70-100 Blood Urea Nitrogen 11 mg/dL Normal 7-18 Creatinine For GFR 0.74 mg/dL Normal 0.55-1.30 Glomerular Filtration Rate > 60.0 Normal >45 5 Sodium Level 144 mEq/L Normal 136-145 Potassium Serum 3.8 mEq/L Normal 3.5-5.1 Chloride Level 111 mEq/L High 98-107 Carbon Dioxide Level 30 mEq/L Normal 21-32 Anion Gap 3 mEq/L Low 8-16 Calcium Level 9.1 mg/dL Normal 8.8-10.2 Laboratory test finding 02/05/2021 [facility] [address] [place] [id number] [phone] Salicylate Level < 1.7 mg/dL Low 5.0-30.0 Acetaminophen Level < 2.0 UG/ML Low 10.0-30.0 Thyroid Stimulating Hormone 1.050 uIU/ML Normal 0.358-3.740 Coronavirus 2019 Nasopharygeal 01/19/[address] [address] [phone] Coronavirus 2019 Nasopharygeal This nucleic aci <SEE N OTE> 6 CBC With Differential 01/11/[address] [address] [phone] White Blood Count 7.1 10 Normal 4.0-10.0 Red Blood Count 4.30 10 Normal 4.00-5.40 Hemoglobin 12.1 g/dL Normal 12.0-15.5 Hematocrit 38.7 % Normal 36.0-47.0 Mean Corpuscular Volume 90.0 fl Normal 80.0-96.0 Mean Corpuscular Hemoglobin 28.1 pg Normal 27.0-33.0 Mean Corpuscular HGB Conc 31.3 g/dL Low 32.0-36.5 Red Cell Distribution Width 13.4 % Normal 11.5-14.5 Platelet Count, Automated 241 10 Normal 150-450 Neutrophils % 61.5 % Normal 36.0-66.0 Lymph % 27.5 % Normal 24.0-44.0 Heard % 7.2 % Normal 2.0-8.0 Eos % 2.7 % Normal 0.0-3.0 Baso % 0.7 % Normal 0.0-1.0 Immature Granulocyte % 0.4 % Normal 0-3.0 Nucleated Red Blood Cell % 0.0 % Normal 0-0 Neutrophils # 4.4 10 Normal 1.5-8.5 Lymph # 2.0 10 Normal 1.5-5.0 Heard # 0.5 10 Normal 0.0-0.8 Eos # 0.2 10 Normal 0.0-0.5 Baso # 0.1 10 Normal 0.0-0.2 Basic Metabolic Profile 01/11/2021 [place] 67[address]026 [phone] Glucose, Fasting 109 mg/dL High 70-100 Blood Urea Nitrogen 17 mg/dL Normal 7-18 Creatinine For GFR 0.70 mg/dL Normal 0.55-1.30 Glomerular Filtration Rate > 60.0 Normal >45 7 Sodium Level 143 mEq/L Normal 136-145 Potassium Serum 4.0 mEq/L Normal 3.5-5.1 Chloride Level 110 mEq/L High 98-107 Carbon Dioxide Level 28 mEq/L Normal 21-32 Anion Gap 5 mEq/L Low 8-16 Calcium Level 9.2 mg/dL Normal 8.8-10.2 Complete Blood Count 01/01/2021 [place] [id number] [phone] White Blood Count 6.5 10 Normal 4.0-10.0 Red Blood Count 4.69 10 Normal 4.00-5.40 Hemoglobin 12.9 g/dL Normal 12.0-15.5 Hematocrit 41.7 % Normal 36.0-47.0 Mean Corpuscular Volume 88.9 fl Normal 80.0-96.0 Mean Corpuscular Hemoglobin 27.5 pg Normal 27.0-33.0 Mean Corpuscular HGB Conc 30.9 g/dL Low 32.0-36.5 Red Cell Distribution Width 13.5 % Normal 11.5-14.5 Platelet Count, Automated 237 10 Normal 150-450 Nucleated Red Blood Cell % 0.0 % Normal 0-0 Comprehensive Metabolic Profil 01/01/2021 [place] 3[address]254 [phone] Glucose, Fasting 109 mg/dL High 70-100 Blood Urea Nitrogen 15 mg/dL Normal 7-18 Creatinine For GFR 0.69 mg/dL Normal 0.55-1.30 Glomerular Filtration Rate > 60.0 Normal >45 8 Sodium Level 142 mEq/L Normal 136-145 Potassium Serum 4.1 mEq/L Normal 3.5-5.1 Chloride Level 107 mEq/L Normal 98-107 Carbon Dioxide Level 25 mEq/L Normal 21-32 Anion Gap 10 mEq/L Normal 8-16 Calcium Level 9.7 mg/dL Normal 8.8-10.2 Ast/Sgot 17 U/L Normal 7-37 Alt/SGPT 28 U/L Normal 12-78 Alkaline Phosphatase 122 U/L High 45-117 Bilirubin,Total 0.6 mg/dL Normal 0.2-1.0 Total Protein 7.2 GM/DL Normal 6.4-8.2 Albumin 4.1 GM/DL Normal 3.2-5.2 Albumin/Globulin Ratio 1.3 Normal 1.2-2.2 Lipid Panel 01/01/[address] [address] [phone] Triglycerides Level 197 mg/dL High <150 Cholesterol Level 203 mg/dL High <200 HDL Cholesterol 76 mg/dL Normal >40 LDL Cholesterol 88 mg/dL Normal <100 Non-HDL-C 127 mg/dL Normal Cholesterol Risk Ratio 2.671 Normal <5 Laboratory test finding 01/01/2021 [facility] [address] [place] [address] [phone] CPK Creatine Phosphokinase 69 U/L Normal 26-19 2 1 Units are mL/min/1.73 m2 Chronic Kidney Disease Staging per NKF: Stage I & II GFR >=60 Normal to Mildly Decreased Stage III GFR 30-59 Moderately Decreased Stage IV GFR 15-29 Severely Decreased Stage V GFR <15 Very Little GFR Left ESRD GFR <15 on BIT SHARPENER OPERATOR 2 VITAMIN B12 NORMAL RANGE NORMAL 247 - 911 PG/ML INDETERMINATE 211 - 246 PG/ML DEFICIENT LESS THAN 211 PG/ML 3 DIAGNOSIS CRITERIA MMB ng/ml Relative Index (RI) NON-AMI < or = 5 N/A LOCKHART ZONE > 5 < or = 4 AMI > 5 > 4 4 Troponin I Reference Interva l for Swarm64 LOCI: 99th Percentile= 0.00-0.045 ng/ml Risk Stratification: <= 0.10 ng/ml Decreased Risk for Adverse Clinical Events. 0.10-1.50 ng/ml Increased Risk for Adv erse Clinical Events. Evaluation of additional criterion and/or repeat testing in 2-6 hours is suggested to rule out myocardial damage. >= 1.50 ng/ml Indicative of Myocardial Injury. 5 Units are mL/min/1.73 m2 Chronic Kidney Disease Staging per NKF: Stage I & II GFR >=60 Normal to Mildly Decreased Stage III GFR 30-59 Moderately Decreased Stage IV GFR 15-29 Severely Decreased Stage V GFR <15 Very Little GFR Left ESRD GFR <15 on BIT SHARPENER OPERATOR 6 This nucleic acid amplificat ion test was developed and its performance characteristics determined by [employer]. Nucleic acid amplification tests include RT- PCR and TMA. This test has not been FDA cleared or approved. This test has been authorized by FDA under an Emergency Use Authorization (EUA). This test is only authorized for the duration of time the declaration that circumstances exist justifying the authorization of the emergency use of in vitro diagnostic tests for detection of SARS-CoV-2 virus and/or diagnosis of COVID-19 infection under section 564(b)(1) of the Act, 21 U.S.C. 360bbb-3(b) (1), unless the authorization is termina seferino or revoked sooner. When diagnostic testing is negative, the possibility of a false negative result should be considered in the context of a patient's recent exposures and the presence of clinical signs and symptoms consistent with COVID-19. An individual without symptoms of COVID-19 and who is not shedding SARS-CoV-2 virus would expect to have a negative (not detected) result in this assay. Performed at: [facility] [address] [facility], [place], [place] [id number] Income Tax Consultant: Lalitha Pulido PhD, Phone: [phone] Not Detected 7 Units are mL/min/1.73 m2 Chronic Kidney Disease Staging per NKF: Stage I & II GFR >=60 Normal to Mildly Decreased Stage III GFR 30-59 Moderately Decreased Stage IV GFR 15-29 Severely Decreased Stage V GFR <15 Very Little GFR Left ESRD GFR <15 on BIT SHARPENER OPERATOR 8 Units are mL/min/1.73 m2 Chronic Kidney Disease Staging per NKF: Stage I & II GFR >=60 Normal to Mildly Decreased Stage III GFR 30-59 Moderately Decreased Stage IV GFR 15-29 Severely Decreased Stage V GFR <15 Very Little GFR Left ESRD GFR <15 on BIT SHARPENER OPERATOR Procedures Date Code Description Status 01/10/2021 84106 Office/Outpatient Established Lo w MDM 20-29 Min Completed Encounters Type Date Location Provider Dx Diagnosis Office Visit 01/10/2021 [facility] oKrin Atkins NP E 78.5 Hyperlipidemia, unspecified I10 Essential (primary) hyperten josiah K21.9 Gastro-esophageal reflux dis ease without esophagitis E55.9 Vitamin D deficiency, unspec ified Q21.1 Atrial septal defect Assessments Date Code Description Provider 01/10/2021 E78.5 Hyperlipidemia Korin Atkins NP 01/10/2021 I10 Essential (primary) hypertension Korin Atkins NP 01/10/2021 K21.9 Gastro-esophageal reflux disease without esophagitis Korin Atikns NP 01/10/2021 E55.9 Vitamin D deficiency Korin porter NP 01/10/2021 Q21.1 Patent foramen ovale Korin porter NP
--- OUTSIDE RECORDS SUMMARY | 2021-09-16 08:36 | CCD | Continuity of Care Document ---
Author Author Susy PINEDA MD Organization Unknown Address [address] [place] [address], [place] [address] Phone [phone] Care Team Providers Care Business Intelligence Developer Name Role Phone Gisela Franks MD AUTM [phone] Betty Persaud MD AUTM [phone] Karlene Ames MD AUTM [phone] Anali Barth DO AUTM [phone] Problems Active Problems Provider Date Ostium [...] Available Procedures Date Code Description Status 06/19/2021 32434 Chronic Care MGMT 20 Mins Clinical Staff Time Per Calendar Month Completed 06/19/2021 10513 Chronic Care Management Services Ea Addl 20 Min Completed 05/24/2021 30255 Complex Chronic Care MGMT Servic e Ea Addl 30 Min Completed 05/24/2021 40026 Complex Chronic Care Management SVC 1St 60 Min Completed 04/18/2021 50903 Complex Chronic Care MGMT Servic e Ea Addl 30 Min Completed 04/18/2021 01957 Complex Chronic Care Management SVC 1St 60 [...]
--- OUTSIDE RECORDS SUMMARY | 2021-09-16 08:36 | CCD | Continuity of Care Document ---
Author Organization Unknown Address Unknown Phone Unavailable Care Team Providers Care Surface Mount Technology Operator Name Role Phone KORIN ATKINS NP AUTM [phone] Social History Type Date Description Comments Sex [...] DR Take One Tablet By Mouth Daily [facility] Buspirone HCL 10mg Tablets Take [...] H/L Range Note Complete Blood Count 06/28/[address] [address] [phone] White Blood Count 6.2 10 Normal 4.0-10.0 [...] 36.0-66.0 Lymph % 26.5 % Normal 24.0-44.0 [place] % 7.6 % Normal 2.0-8.0 Eos % 1.9 % Normal 0.0-3.0 Baso % 0.5 % Normal 0.0-1.0 Immature Granulocyte % 0.3 % Normal 0-3.0 Nucleated Red Blood Cell % 0.0 % Normal 0-0 Neutrophils # 3.9 10 Normal 1.5-8.5 Lymph # 1.6 10 Normal 1.5-5.0 [place] # 0.5 10 Normal 0.0-0.8 Eos # 0.1 10 Normal 0.0-0.5 Baso # 0.0 10 Normal 0.0-0.2 Comprehensive Metabolic Profil 06/28/[address] [address] [phone] Glucose, Fasting 105 mg/dL High 70-100 Blood [...] Normal 1.2-2.2 Total Iron Binding Capacit 06/28/2021 [facility] [address] [place] [address] [phone] Iron (Fe) 57 g/dL Normal 50-170 Total Iron Binding Capacity 369 g/dL Normal 250-450 Percent Saturation 15.4 % Normal 13.2-45.0 Laboratory test finding [facility] [address] [place] [address] [phone] Ferritin 70 NG/ML Normal 8-252 CBC With Differential 02/05/2021 [place] [address] [place] [address] [phone] White Blood Count 6.8 10 Normal 4.0-10.0 [...] 36.0-66.0 Lymph % 27.3 % Normal 24.0-44.0 [place] % 6.9 % Normal 2.0-8.0 Eos % 3.0 % Normal 0.0-3.0 Baso % 0.7 % Normal 0.0-1.0 Immature Granulocyte % 0.4 % Normal 0-3.0 Nucleated Red Blood Cell % 0.0 % Normal 0-0 Neutrophils # 4.2 10 Normal 1.5-8.5 Lymph # 1.9 10 Normal 1.5-5.0 [place] # 0.5 10 Normal 0.0-0.8 Eos # 0.2 10 Normal 0.0-0.5 Baso # 0.1 10 Normal 0.0-0.2 Cardiac Marker Panel 02/05/[address] [address] [phone] CPK Creatine Phosphokinase 64 U/L Normal 26-19 2 CK-MB Value Mass 1.2 NG/ML Normal <3.6 MB/CK Relative Index 1.88 Normal < Or =4 2 Troponin I < 0.02 NG/ML Normal < 0.10 3 Liver Profile 02/05/[address] [address] [phone] Ast/Sgot 11 U/L Normal 7-37 Alt/SGPT 26 U/L Normal 12-78 Alkaline Phosphatase 123 U/L High 45-117 Bilirubin,Total 0.4 mg/dL Normal 0.2-1.0 Bilirubin,Direct < 0.1 mg/dL Normal 0.0-0.2 Total Protein 7.0 GM/DL Normal 6.4-8.2 Albumin 4.0 GM/DL Normal 3.2-5.2 Albumin/Globulin Ratio 1.3 Normal 1.2-2.2 Basic Metabolic Profile 02/05/[address] [address] [phone] Glucose, Fasting 101 mg/dL High 70-100 Blood Urea Nitrogen 11 mg/dL Normal 7-18 Creatinine For GFR 0.74 mg/dL Normal 0.55-1.30 Glomerular Filtration Rate > 60.0 Normal >45 4 Sodium Level 144 mEq/L Normal 136-145 Potassium Serum 3.8 mEq/L Normal 3.5-5.1 Chloride Level 111 mEq/L High 98-107 Carbon Dioxide Level 30 mEq/L Normal 21-32 Anion Gap 3 mEq/L Low 8-16 Calcium Level 9.1 mg/dL Normal 8.8-10.2 Laboratory test finding 02/05/2021 [place] [address] [place] [id number] [phone] Salicylate Level < 1.7 mg/dL Low 5.0-30.0 Acetaminophen Level < 2.0 UG/ML Low 10.0-30.0 Thyroid Stimulating Hormone 1.050 uIU/ML Normal 0.358-3.740 Coronavirus 2019 Nasopharygeal 01/19/[address] [address] [phone] Coronavirus 2019 Nasopharygeal This nucleic aci <SEE N OTE> 5 CBC With Differential 01/11/[address] [address] [phone] White Blood Count 7.1 10 Normal 4.0-10.0 [...] 36.0-66.0 Lymph % 27.5 % Normal 24.0-44.0 [place] % 7.2 % Normal 2.0-8.0 Eos % 2.7 % Normal 0.0-3.0 Baso % 0.7 % Normal 0.0-1.0 Immature Granulocyte % 0.4 % Normal 0-3.0 Nucleated Red Blood Cell % 0.0 % Normal 0-0 Neutrophils # 4.4 10 Normal 1.5-8.5 Lymph # 2.0 10 Normal 1.5-5.0 [place] # 0.5 10 Normal 0.0-0.8 Eos # 0.2 10 Normal 0.0-0.5 Baso # 0.1 10 Normal 0.0-0.2 Basic Metabolic Profile 01/11/2021 [place] [address] [phone] Glucose, Fasting 109 mg/dL High 70-100 Blood Urea Nitrogen 17 mg/dL Normal 7-18 Creatinine For GFR 0.70 mg/dL Normal 0.55-1.30 Glomerular Filtration Rate > 60.0 Normal >45 6 Sodium Level 143 mEq/L Normal 136-145 Potassium Serum 4.0 mEq/L Normal 3.5-5.1 Chloride Level 110 mEq/L High 98-107 Carbon Dioxide Level 28 mEq/L Normal 21-32 Anion Gap 5 mEq/L Low 8-16 Calcium Level 9.2 mg/dL Normal 8.8-10.2 Complete Blood Count 01/01/[address] [address] [phone] White Blood Count 6.5 10 Normal 4.0-10.0 [...] % Normal 0-0 Comprehensive Metabolic Profil 01/01/[address] 3394949 [phone] Glucose, Fasting 109 mg/dL High 70-100 Blood Urea Nitrogen 15 mg/dL Normal 7-18 Creatinine For GFR 0.69 mg/dL Normal 0.55-1.30 Glomerular Filtration Rate > 60.0 Normal >45 7 Sodium Level 142 mEq/L Normal 136-145 Potassium [...] Ratio 1.3 Normal 1.2-2.2 Lipid Panel 01/01/2021 [facility] [address] [place] [address] [phone] Triglycerides Level 197 mg/dL High <150 Cholesterol Level 203 mg/dL High <200 HDL Cholesterol 76 mg/dL Normal >40 LDL Cholesterol 88 mg/dL Normal <100 Non-HDL-C 127 mg/dL Normal Cholesterol Risk Ratio 2.671 Normal <5 Laboratory test finding 01/01/2021 [facility] [address] [place] [address] [phone] CPK Creatine Phosphokinase 69 U/L Normal 26-19 2 1 Units are mL/min/1.73 m2 Chronic Kidney Disease Staging per NKF: Stage I & II GFR >=60 Normal to Mildly Decreased Stage III GFR 30-59 Moderately Decreased Stage IV GFR 15-29 Severely Decreased Stage V GFR <15 Very Little GFR Left ESRD GFR <15 on SUPPLY CHAIN LOGISTICS MANAGER 2 DIAGNOSIS CRITERIA MMB ng/ml Relative Index (RI) NON-AMI < or = 5 N/A LOCKHART ZONE > 5 < or = 4 AMI > 5 > 4 3 Troponin I Reference Interva l for [employer] LOCI: 99th Percentile= 0.00-0.045 ng/ml Risk Stratification: <= 0.10 ng/ml Decreased Risk for Adverse Clinical Events. 0.10-1.50 ng/ml Increased Risk for Adv erse Clinical Events. Evaluation of additional criterion and/or repeat testing in 2-6 hours is suggested to rule out myocardial damage. >= 1.50 ng/ml Indicative of Myocardial Injury. 4 Units are mL/min/1.73 m2 Chronic Kidney Disease Staging per NKF: Stage I & II GFR >=60 Normal to Mildly Decreased Stage III GFR 30-59 Moderately Decreased Stage IV GFR 15-29 Severely Decreased Stage V GFR <15 Very Little GFR Left ESRD GFR <15 on SUPPLY CHAIN LOGISTICS MANAGER 5 This nucleic acid amplificat ion test was developed and its performance characteristics determined by [employer]. Nucleic acid amplification tests include RT- PCR [...] detected) result in this assay. Performed at: [employer] [facility], [place] [address] [id number] [employer] Sdet: Lalitha Pulido PhD, Phone: [phone] Not Detected 6 Units are mL/min/1.73 m2 Chronic Kidney Disease Staging per NKF: Stage I & II GFR >=60 Normal to Mildly Decreased Stage III GFR 30-59 Moderately Decreased Stage IV GFR 15-29 Severely Decreased Stage V GFR <15 Very Little GFR Left ESRD GFR <15 on SUPPLY CHAIN LOGISTICS MANAGER 7 Units are mL/min/1.73 m2 Chronic Kidney Disease Staging per NKF: Stage I & II GFR >=60 Normal to Mildly Decreased Stage III GFR 30-59 Moderately Decreased Stage IV GFR 15-29 Severely Decreased Stage V GFR <15 Very Little GFR Left ESRD GFR <15 on SUPPLY CHAIN LOGISTICS MANAGER Procedures Date Code Description Status 01/10/2021 16033 Office/Outpatient Established Lo w MDM 20-29 Min Completed Encounters Type Date Location Provider Dx Diagnosis Office Visit 01/10/2021 2:00p Medical [facility] Korin Atkins NP E 78.5 Hyperlipidemia, unspecified I10 Essential (primary) hyperten josiah K21.9 Gastro-esophageal reflux dis ease without esophagitis E55.9 Vitamin D deficiency, unspec ified Q21.1 Atrial septal defect Assessments Date Code Description Provider 01/10/2021 E78.5 Hyperlipidemia Korin Atkins, MARY 01/10/2021 I10 Essential (primary) hypertension Korin Atkins, MARY 01/10/2021 K21.9 Gastro-esophageal reflux disease without esophagitis Korin Atkins NP 01/10/2021 E55.9 Vitamin D deficiency Korin porter, MARY 01/10/2021 Q21.1 Patent foramen ovale Korin porter, CAD DRAFTER
--- OUTSIDE RECORDS SUMMARY | 2021-09-16 08:36 | CCD ---
Author Author [facility] Organization [facility] Address Unknown Phone Unavailable Care Team Providers Care Automation Qa Tester Name Role Phone PatrickSherie ceronieszka Unavailable PROBLEMS Type Condition ICD9-CM Code [id number] Code Onset Dates Condition S tatus W/U Status Risk SNOMED Code Notes Problem Intervertebral disc disorder with radiculopathy of lumbosacral region M51.17 Active confirmed 76637267 Problem Other chronic pain G89.29 Active confirmed 8 0385979 Problem Neuropathy G62.9 Active confirmed 674713383 Problem Depression with anxiety F41.8 Active confirmed 634455584 Problem Vitamin D deficiency E55.9 Active confirmed 07202081 Problem Iron deficiency anemia, unspecified iron deficiency an emia type D50.9 Active confirmed 29880442 Problem History of colon cancer Z85.038 Active confirmed 018076211 Problem Abnormal mammogram of left breast R92.8 Active confirmed 803960667 Problem Essential hypertension I10 Active confirmed 04708678 Problem Anticoagulant long-term use Z79.01 Active confirmed 278288429 Problem LAURITA (obstructive sleep apnea) G47.33 Active confirm ed 24404132 Problem Left leg paresthesias R20.2 Active confirmed [id number] Problem Mixed hyperlipidemia E78.2 Active confirmed 264860109 Problem Intestinal malabsorption, unspecified type K90.9 Active confirmed 192150576 Problem S/P patent foramen ovale closure Z87.74 Active confirmed 301186310 ALLERGIES No Known Allergies ENCOUNTERS from 1960 to 2021-07-05 Encounter Location Date Provider Diagnosis [facility] [address] [place] [address] [place] [address] Jun, Anali Barth IMMUNIZATIONS Vaccine Route Administration [...] Notes Total Score: 0 Interpretation: Alcohol Education Rastafarian: Question Answer Notes Rastafarian 21 Hindu Drug and Alcohol Question Answer Notes Total [...] Information RESULTS No Results REASON FOR VISIT 1d post biopsy MEDICAL (GENERAL) HISTORY Type Description Date Medical History HTN Medical History Hx anemia with iron deficency - Dr. Monge Medical History Obesity s/p Gastric Bypass Medical History Degenerative Disc Disease, c hronic low back pain, bilateral sciatica and radiculopathy - [facility] Pain Medical History Depression and anxiety - [facility] BH Medical History LAURITA - uses CPAP [...] Armendariz 12/2020 Surgical History PFO closure at [facility], Dr. Franks Hospitalization History surgery related Hospitalization History "Micro Stroke" 11/04/20 Goals Section No Information Health Concerns No Information MEDICAL EQUIPMENT No Information MENTAL STATUS No Information FUNCTIONAL STATUS No Information ASSESSMENTS No Information PLAN OF TREATMENT Next Appt Details Provider Name:Rozina Kevin, 2021-07-06 03:30:00 PM, [address] [facility], , [place], [address], Provider Name:Moises Stallings, 2021-08-30 11:00:00 AM, [address], , [place], [address], Provider Name:Karlene Ames, 2022-01-01 11:45:00 AM, [address] [facility], , [place], [address], Insurance Providers Payer Name Payer Address Payer Phone Insured Name Patient Relati onship to Insured Coverage Start Date Coverage End Date MEDICAID [place] [employer] [address] [facility] [id number] [place] MEDICARE Part A and B [address] [facility] [phone] [employer]
--- OUTSIDE RECORDS SUMMARY | 2021-09-16 08:38 | CCD ---
Author Author [facility] Organization [facility] Address Unknown Phone Unavailable Support Name Relationship Address Phone MICHELLE BARROW Next Of Kin [phone] [place] [address] MORAIMA BARROW Next Of Kin [address] [place] [address] [employer] Next Of Kin [address] [place] [address] CITLALI BARROW Next Of Kin [address] [place] [address] [employer] Next Of Kin [address] [place] [address] [facility] Next Of Kin [address] [place] [address] ROMI VASQUEZ Next Of Kin [address] [place] [address] [facility] [place] [address] LAURA WILSON Next Of Kin [address] [place] [address] REZA SPARKS Next Of Kin [address] [place] [address] DISABLED Next Of Kin Unknown Unavailable DANN DIA Next Of Kin [phone] [facility] [address] [place] [address] AAFES Next Of Kin [id number] [place] [address] FERNIE FERNANDES Next Of Kin [address] [place] [address] FERNIE FERNANDES Next Of Kin [address] [place] [address] CITLALI BARROW ECON [id number] Tommy [facility] [place] [address] Aniket Dia ECON [address] [place] [address] [phone] Dann Dia ECON [address] [place] [address] Unavailable Dann Dia ECON [address] [place] [address] Care Team Providers Care Fashion Photographer Name Role Phone Mariana Armendariz MD Unavailable [...] Unavailable Mariana Armendariz MD Unavailable Unavailable Mariana Armendairz MD Unavailable Unavailable Mariana Armendariz MD Unavailable [...] Unavailable Unavailable Mariana Armendariz MD Unavailable Unavailable SCIARRINO, JOHNIE CHAIN PEGGER Unavailable Unavailable SCIARRINO, JOHNIE CHAIN PEGGER Unavailable Unavailable SCIARRINO, JOHNIE CHAIN PEGGER Unavailable Unavailable SCIARRINO, JOHNIE CHAIN PEGGER Unavailable Unavailable SCIARRINO, JOHNIE CHAIN PEGGER Unavailable Unavailable SCIARRINO, JOHNIE CHAIN PEGGER Unavailable Unavailable SCIARRINO, JOHNIE CHAIN PEGGER Unavailable Unavailable SCIARRINO, JOHNIE CHAIN PEGGER Unavailable Unavailable SCIARRINO, JOHNIE CHAIN PEGGER Unavailable Unavailable SCIARRINO, JOHNIE CHAIN PEGGER Unavailable Unavailable SCIARRINO, JOHNIE CHAIN PEGGER Unavailable Unavailable SCIARRINO, JOHNIE CHAIN PEGGER Unavailable Unavailable SCIARRINO, JOHNIE CHAIN PEGGER Unavailable Unavailable SCIARRINO, JOHNIE CHAIN PEGGER Unavailable Unavailable SCIARRINO, JOHNIE CHAIN PEGGER Unavailable Unavailable SCIARRINO, JOHNIE CHAIN PEGGER Unavailable Unavailable SCIARRINO, JOHNIE CHAIN PEGGER Unavailable Unavailable SCIARRINO, JOHNIE CHAIN PEGGER Unavailable Unavailable SCIARRINO, JOHNIE CHAIN PEGGER Unavailable Unavailable SCIARRINO, JOHNIE CHAIN PEGGER Unavailable Unavailable SCIARRINO, JOHNIE CHAIN PEGGER Unavailable Unavailable SCIARRINO, JOHNIE CHAIN PEGGER Unavailable Unavailable SCIARRINO, OJHNIE CHAIN PEGGER Unavailable Unavailable SCIARRINO, JOHNIE CHAIN PEGGER Unavailable Unavailable SCIARRINO, JOHNIE CHAIN PEGGER Unavailable Unavailable SCIARRINO, JOHNIE CHAIN PEGGER Unavailable Unavailable SCIARRINO, JOHNIE CHAIN PEGGER Unavailable Unavailable ROSA MARIA [id number], E AYDE [id number] Unavailable Unavailab le ROSA MARIA [id number], E AYDE [id number] Unavailable Unavailab le ROSA MARIA [id number], E AYDE [id number] Unavailable Unavailab le KIRSCHMAN, L KAITLIN TRANSPORTATION CONSULTANT Unavailable Unavailable KIRSCHMAN, L KAITLIN TRANSPORTATION CONSULTANT Unavailable Unavailable KIRSCHMAN, L KAITLIN TRANSPORTATION CONSULTANT Unavailable Unavailable KIRSCHMAN, L KAITLIN TRANSPORTATION CONSULTANT Unavailable Unavailable KIRSCHMAN, L KAITLIN TRANSPORTATION CONSULTANT Unavailable Unavailable KIRSCHMAN, L KAITLIN TRANSPORTATION CONSULTANT Unavailable Unavailable KIRSCHMAN, L KAITLIN TRANSPORTATION CONSULTANT Unavailable Unavailable KIRSCHMAN, L KAITLIN TRANSPORTATION CONSULTANT Unavailable Unavailable KIRSCHMAN, L KIATLIN TRANSPORTATION CONSULTANT Unavailable Unavailable KIRSCHMAN, L KAITLIN TRANSPORTATION CONSULTANT Unavailable Unavailable KIRSCHMAN, L KAITLIN TRANSPORTATION CONSULTANT Unavailable Unavailable KIRSCHMAN, L KAITLIN TRANSPORTATION CONSULTANT Unavailable Unavailable KIRSCHMAN, L KAITLIN TRANSPORTATION CONSULTANT Unavailable Unavailable KIRSCHMAN, L KAITLIN TRANSPORTATION CONSULTANT Unavailable Unavailable KIRSCHMAN, L KAITLIN TRANSPORTATION CONSULTANT Unavailable Unavailable KIRSCHMAN, L KAITLIN TRANSPORTATION CONSULTANT Unavailable Unavailable KIRSCHMAN, L KAITLIN TRANSPORTATION CONSULTANT Unavailable Unavailable KIRSCHMAN, L KAITLIN TRANSPORTATION CONSULTANT Unavailable Unavailable KIRSCHMAN, L KAITLIN TRANSPORTATION CONSULTANT Unavailable Unavailable KIRSCHMAN, L KAITLIN TRANSPORTATION CONSULTANT Unavailable Unavailable KIRSCHMAN, L KAITLIN TRANSPORTATION CONSULTANT Unavailable Unavailable KIRSCHMAN, L KAITLIN TRANSPORTATION CONSULTANT Unavailable Unavailable KIRSCHMAN, L KAITLIN TRANSPORTATION CONSULTANT Unavailable Unavailable KIRSCHMAN, L KAITLIN TRANSPORTATION CONSULTANT Unavailable Unavailable KIRSCHMAN, L KAITLIN TRANSPORTATION CONSULTANT Unavailable Unavailable KIRSCHMAN, L KAITLIN TRANSPORTATION CONSULTANT Unavailable Unavailable KIRSCHMAN, L KAITLIN TRANSPORTATION CONSULTANT Unavailable Unavailable KIRSCHMAN, L KAITLIN TRANSPORTATION CONSULTANT Unavailable Unavailable KIRSCHMAN, L KAITLIN TRANSPORTATION CONSULTANT Unavailable Unavailable KIRSCHMAN, L KAITLIN TRANSPORTATION CONSULTANT Unavailable Unavailable KIRSCHMAN, L KAITLIN TRANSPORTATION CONSULTANT Unavailable Unavailable KIRSCHMAN, L KAITLIN TRANSPORTATION CONSULTANT Unavailable Unavailable KIRSCHMAN, L KAITLIN TRANSPORTATION CONSULTANT Unavailable Unavailable KIRSCHMAN, L KAITLIN TRANSPORTATION CONSULTANT Unavailable Unavailable KIRSCHMAN, L KAITLIN TRANSPORTATION CONSULTANT Unavailable Unavailable KIRSCHMAN, L KAITLIN TRANSPORTATION CONSULTANT Unavailable Unavailable KIRSCHMAN, L KAITLIN TRANSPORTATION CONSULTANT Unavailable Unavailable KIRSCHMAN, L KAITLIN TRANSPORTATION CONSULTANT Unavailable Unavailable KIRSCHMAN, L KAITLIN TRANSPORTATION CONSULTANT Unavailable Unavailable KIRSCHMAN, L KAITLIN TRANSPORTATION CONSULTANT Unavailable Unavailable KIRSCHMAN, L KAITLIN TRANSPORTATION CONSULTANT Unavailable Unavailable KIRSCHMAN, L KAITLIN TRANSPORTATION CONSULTANT Unavailable Unavailable KIRSCHMAN, L KAITLIN TRANSPORTATION CONSULTANT Unavailable Unavailable KIRSCHMAN, L KAITLIN TRANSPORTATION CONSULTANT Unavailable Unavailable KIRSCHMAN, L KAITLIN TRANSPORTATION CONSULTANT Unavailable Unavailable KIRSCHMAN, L KAITLIN TRANSPORTATION CONSULTANT Unavailable Unavailable KIRSCHMAN, L KAITLIN TRANSPORTATION CONSULTANT Unavailable Unavailable TONEY BEDOYA MD Unavailable Unavailable TONEY BEDOYA MD Unavailable Unavailable TONEY BEDOYA MD Unavailable Unavailable TONEY BEDOYA MD Unavailable Unavailable AURELIANOTONEY BROWN MD Unavailable Unavailable TONEY BEDOYA MD Unavailable Unavailable TONEY BEDOYA MD Unavailable Unavailable TONEY BEDOYA MD Unavailable Unavailable TONEY BEDOYA MD Unavailable Unavailable TONEY BEDOYA MD Unavailable Unavailable TONEY BEDOYA MD Unavailable Unavailable TONEY BEDOYA MD Unavailable Unavailable TONEY BEDOYA MD Unavailable Unavailable AURELIANOTONEY BROWN MD Unavailable Unavailable AURELIANOTONEY BROWN MD Unavailable Unavailable AURELIANO, TONEY MD Unavailable Unavailable AURELIANO, TONEY MD Unavailable Unavailable AURELIANO, TONEY MD Unavailable Unavailable AURELINAO, TONEY MD Unavailable Unavailable AURELIANO, TONEY MD [...] Unavailable Unavailable AURELIANO, TONEY MD Unavailable Unavailable Angeles OBRIENW DPM Unavailable Unavailable MAJAngeles WARD DPM Unavailable Unavailable MAJAngeles WARD DPM Unavailable Unavailable Angeles OBRIEN DPM Unavailable Unavailable CAMILLE R IRVIN DPM Unavailable Unavailable CAMILLE R IRVIN DPM Unavailable Unavailable Angeles OBRIEN DPM Unavailable Unavailable Angeles OBRIEN DPM Unavailable Unavailable MAJSYLVIA R IRVIN DPM Unavailable Unavailable CAMILLE R IRVIN DPM Unavailable Unavailable CAMILLE R IRVIN DPM Unavailable Unavailable Angeles OBRIEN DPM Unavailable Unavailable Angeles OBRIEN DPM Unavailable Unavailable CAMILLE R IRVIN DPM Unavailable Unavailable AK R IRVIN DPM Unavailable Unavailable MAJAK, R IRVIN DPM Unavailable Unavailable MAJSYLVIA R IRVIN DPM Unavailable Unavailable MAJSYLVIA R IRVIN DPM Unavailable Unavailable CAMILLE R IRVIN DPM Unavailable Unavailable CAMILLE R IRVIN DPM Unavailable Unavailable CAMILLE R IRVIN DPM Unavailable Unavailable CAMILLE R IRVIN DPM Unavailable Unavailable MAJAK, R IRVIN DPM Unavailable Unavailable MAJSYLVIA R IRVIN DPM Unavailable Unavailable MAJSYLVIA, R IRVIN DPM Unavailable Unavailable CAMILLE R IRVIN DPM Unavailable Unavailable MAJSYLVIA, R IRVIN DPM Unavailable Unavailable MAJSYLVIA R IRVIN DPM Unavailable Unavailable Angeles OBRIEN DPM Unavailable Unavailable MAJAK R IRVIN DPM Unavailable Unavailable MAJAK, R IRVIN DPM Unavailable Unavailable JUDD, L INEZ PA Unavailable Unavailable JUDD, L INEZ PA Unavailable Unavailable JUDD, L INEZ PA Unavailable Unavailable JUDD, L INEZ PA Unavailable Unavailable JUDD, L INEZ PA Unavailable Unavailable JUDD, L INEZ PA Unavailable Unavailable JUDD, L INEZ PA Unavailable Unavailable JUDD, L INEZ PA Unavailable Unavailable JUDD, L INEZ PA Unavailable Unavailable JUDD, L INEZ PA Unavailable Unavailable JUDD, L INEZ PA Unavailable Unavailable JUDD, L INEZ PA Unavailable Unavailable JUDD, L INEZ PA Unavailable Unavailable JUDD, L INEZ PA Unavailable Unavailable JUDD, L INEZ PA Unavailable Unavailable JUDD, L INEZ PA Unavailable Unavailable ANTECOL, Maribell MARES MD Unavailable [...] ANTECOL, Maribell MARES MD Unavailable Unavailable ANTECOL, Marbiell MARES MD Unavailable Unavailable ANTECOL, Maribell MARES [...] Unavailable ANTECOL, Maribell MARES MD Unavailable Unavailable TONTARSKI, G VIJAY PA Unavailable [...] Unavailable TONTARSKI, G VIJAY PA Unavailable Unavailable Mariana FRANKS MD Unavailable Unavailable Mariana FRANKS MD Unavailable Unavailable Mariana FRANKS MD Unavailable Unavailable Mariana FRANKS MD Unavailable Unavailable Mariana FRANKS MD Unavailable Unavailable Mariana FRANKS MD Unavailable Unavailable Mariana FRANKS MD Unavailable Unavailable Mariana FRANKS MD Unavailable Unavailable Mariana FRANKS MD Unavailable Unavailable Mariana FRANKS MD Unavailable Unavailable Mariana FRANKS MD Unavailable Unavailable Mariana FRANKS MD Unavailable Unavailable Mariana FRANKS MD Unavailable Unavailable Mariana FRANKS MD Unavailable Unavailable Mariana FRANKS MD Unavailable Unavailable Maraina FRANKS MD Unavailable Unavailable Mariana FRANKS MD Unavailable Unavailable Mariana FRANKS MD Unavailable Unavailable Mariana FRANKS MD Unavailable Unavailable Mariana FRANKS MD Unavailable Unavailable Mariana FRANKS MD Unavailable Unavailable Mariana FRANKS MD Unavailable Unavailable Mariana FRANKS MD Unavailable Unavailable Mariana FRANKS MD Unavailable Unavailable Mariana FRANKS MD Unavailable Unavailable Mariana FRANKS MD Unavailable Unavailable Mariana FRANKS MD Unavailable Unavailable Mariana FRANKS MD Unavailable Unavailable Mariana FRANKS MD Unavailable Unavailable VIVIENNE, S AYMAN MD [...] Unavailable VIVIENNE, S AYMAN MD Unavailable Unavailable Re-disclosure Warning The records that you are [...] is protected by Article 27-F of the [facility] Public Health law. If you continue you may have access to information: Regarding HIV / AIDS; Provided by facilities licensed or operated by the [facility] Office of Mental Health; or Provided by the [facility] Office for People With Developmental Disabilities. If such information is present, then the following [facility] mandated warning applies: This information has [...] law may result in a fine or chcf sentence or both. A general authorization for the release of medical or other information is NOT sufficient authorization for further disc losure. Allergies and Adverse Reactions Type Description Substance Reaction Status Data Source(s ) Propensity to adverse reactions NO KNOWN ALLERGIES NO KNOWN ALLERGIES [facility] Family History Family Member Name Family Member Gender Family Member Status Date o f Status Description Data Source(s) Unknown Male Problem MEDENT ([facility]) Encounters Encounter Providers Location Date Indications Data Source(s ) Outpatient Attender: IRVIN OBRIEN [facility] Office 08/11 08:00:00 AM EDT MED[facility] ([facility] Outpatient [address] [facility] [id number] 08/30/2021 12:00:00 AM EDT [facility] [place] Outpatient Attender: INEZ NOEL Main Office 08/28/2021 0 2:00:00 PM EDT MEDENT ([facility]) Office Visit Attender: VISHNU ESPINOSA MD Main Office 07/19/2021 02: 26:00 PM EDT MEDENT ([facility]) Outpatient Attender: IRVIN OBRIEN [facility] Office 06/11 08:00:00 AM EDT MEDENT ([facility] Outpatient [address] [facility] [id number] 07/06/2021 12:00:00 AM EDT [facility]CW[facility] [place] Unknown [address] [facility] [id number] 07/05/2021 12:00:00 AM EDT [facility]CW1 ([facility] [place]) (BC Biopsy) Breast Center Biopsy [address] [place] [address] 07/04/2021 12:00:00 AM EDT eCW1 ([facility] [place]) Office Visit Attender: VISHNU ESPINOSA MD Main Office 06/19/2021 10: 47:00 AM EDT MEDENT ([facility]) Unknown [address] [facility] [address] 06/11/2021 12:00:00 AM EDT eCW1 ([facility]) Outpatient [address] [facility] [address] 06/11/2021 12:00:00 AM EDT [facility] Outpatient Attender: TONEY BEDOYA MD Main office - [facility] 06/05/2021 01:30:00 PM EDT MEDENT ([facility]) Unknown [address] [facility] [id number] 06/05/2021 12:00:00 AM EDT [facility] Outpatient [address] [facility] [id number] 05/31/2021 12:00:00 AM EDT [facility]) Outpatient [address] [facility] [id number] 05/29/2021 12:00:00 AM EDT [facility]CW[facility]) Office Visit Attender: VISHNU ESPINOSA MD Main Office 05/24/2021 05: 53:00 PM EDT MEDENT ([facility]) Unknown [address] [facility] [address] 05/22/2021 12:00:00 AM EDT eCW1 [facility]) (PN Proc 45) Pain Procedure 45 [address] [place] [address] 05/17/2021 12:00:00 AM EDT eCW1 ([facility] [place]) Unknown [address] [facility] [id number] 05/16/2021 12:00:00 AM EDT [facility]CW1 [facility]) Outpatient Attender: IRVIN OBRIEN [facility] Office 04/11 08:00:00 AM EDT MEDENT [facility] Outpatient Attender: TONEY BEDOYA MD Main office - [facility] 05/01/2021 03:30:00 PM EDT MEDENT ([facility]) Outpatient Attender: JOHNIE GONZALES [facility] 04/26/2021 10:30:00 AM EDT MEDENT ([facility]) [place] [address] [facility] [address] 04/19/2021 12:00:00 AM EDT eCW1 ([facility]) Office Visit, New Pt., Level 4 PC [address] [place] [address] 04/19/2021 12:00:00 AM EDT eCW1 ([facility]) Office Visit Attender: VISHNU ESPINOSA MD Main Office 04/18/2021 02: 28:00 PM EDT MED[facility] ([facility]) Outpatient [address] [facility] [address] 04/17/2021 12:00:00 AM EDT eCW1 ([facility]) Outpatient Attender: IRVIN OBRINE [facility] Office 02/09 08:30:00 AM EDT MEDENT ([facility] Outpatient Attender: TONEY BEDOYA MD Main office - [facility] 01/29/2021 03:30:00 PM EDT MEDENT ([facility]) Outpatient Attender: GISELA FRANKS MDAdmitter: GISELA MORELAND MD [email or web address] 01/24/2021 09:14:00 AM EDT - 01/24/2021 07:30:00 PM EDT [facility] Patient discharged. Outpatient Attender: KAITLIN ATKINS [facility] 01:00:00 PM EST MEDENT (Thai Shay MD) Outpatient [address] [facility] [address] 01/08/2021 12:00:00 AM EST eCW1 ([facility]) Office Visit Attender: TONEY BEDOYA MD Main office - [facility] 12/28/2020 08:15:00 AM EST MEDENT ([facility]) (PN Proc 60) Pain Procedure 60 [address] [place] [address] 12/13/2020 12:00:00 AM EST eCW1 ([facility]) Unknown [address] [facility] [address] 12/13/2020 12:00:00 AM EST eCW1 ([facility]) Outpatient Attender: Claudio Armendariz MD Main Office 12/07/2020 01:45:00 PM EST MEDENT ([facility]) Outpatient Attender: VISHNU ESPINOSA MD Main Office 12/05/2020 09:30:00 AM EST [facility] ([facility]) Outpatient Attender: GISELA FRANKS MD [facility] 11/28/2020 02:30:00 PM EST MEDENT ([facility]) Outpatient Attender: TONEY BEDOYA MD Main office - [facility] 11/27/2020 02:15:00 PM EST [facility] ([facility] ) [place] [address] [facility] [address] 11/20/2020 12:00:00 AM EST eCW1 ([facility]) [place] [address] [facility] [address] 11/17/2020 12:00:00 AM EST eCW1 ([facility]) Outpatient Attender: KAITLIN ATKINS [facility] 01:30:00 PM EST MEDENT (Thai Shay MD) Outpatient Attender: AYDE CRANE [id number] 01/05/2020 08:58:25 PM [facility] Outpatient 11/04/2020 08:05:00 PM EST S troke; right sided facial droop with dyarthria and right tongue deviation. [facility] Stroke; right sided facial droop with dy arthria and right tongue deviation. Outpatient Attender: AYDE CRANE [id number] 11/04/2020 12:00 :00 AM [facility] Outpatient Attender: VIJAY SOTO [facility] 10/26/2020 11:00:00 AM EST MEDENT ([facility]) Office Visit Attender: TONEY BEDOYA MD Main office - [facility] 10/03/2020 02:30:00 PM EST MEDENT ([facility]) Outpatient Attender: KAITLIN ATKINS Medical Building 02:00:00 PM EDT MEDENT (Thai Shay MD) (PN Proc 60) Pain Procedure 60 [address] [place] [address] 08/15/2020 12:00:00 AM EDT eCW1 ([facility]) Outpatient Attender: TONEY BEDOYA MD Main office - [facility] 08/03/2020 03:30:00 PM EDT MEDENT ([facility]) Immunizations Vaccine Date Status Description Data Source(s) COVID-19 VACCINE Pfizer 08/20/2021 12:00:00 AM EDT completed [facility] Vaccine Series Complete: YESThis Data wa s Submitted to [facility] Via [facility]. COVID-19 dose #2 given elsewhere Unspecified 05/29/2021 08:1 0:00 AM EDT completed eCW1 ([facility]) COVID-19 dose #2 given elsewhere Unspecified 05/29/2021 08:1 0:00 AM EDT completed eCW1 ([facility]) COVID-19 dose #2 given elsewhere Unspecified 05/29/2021 08:1 0:00 AM EDT completed eCW1 ([facility]) COVID-19 dose #2 given elsewhere Unspecified 05/29/2021 08:1 0:00 AM EDT completed eCW1 ([facility]) COVID-19 dose #2 given elsewhere Unspecified 05/29/2021 08:1 0:00 AM EDT completed eCW1 ([facility]) COVID-19 dose #2 given elsewhere Unspecified 05/29/2021 08:1 0:00 AM EDT completed eCW1 ([facility]) COVID-19 dose #2 given elsewhere Unspecified 05/29/2021 08:1 0:00 AM EDT completed eCW1 ([facility]) COVID-19 dose #2 given elsewhere Unspecified 05/29/2021 08:1 0:00 AM EDT completed eCW1 ([facility]) COVID-19 dose #2 given elsewhere Unspecified 05/29/2021 08:1 0:00 AM EDT completed eCW1 ([facility]) COVID-19 dose #1 given elsewhere Unspecified 05/29/2021 08:0 9:00 AM EDT completed eCW1 ([facility]) COVID-19 dose #1 given elsewhere Unspecified 05/29/2021 08:0 9:00 AM EDT completed eCW1 ([facility]) COVID-19 dose #1 given elsewhere Unspecified 05/29/2021 08:0 9:00 AM EDT completed eCW1 ([facility]) COVID-19 dose #1 given elsewhere Unspecified 05/29/2021 08:0 9:00 AM EDT completed eCW1 ([facility]) COVID-19 dose #1 given elsewhere Unspecified 05/29/2021 08:0 9:00 AM EDT completed eCW1 ([facility]) COVID-19 dose #1 given elsewhere Unspecified 05/29/2021 08:0 9:00 AM EDT completed eCW1 ([facility]) COVID-19 dose #1 given elsewhere Unspecified 05/29/2021 08:0 9:00 AM EDT completed eCW1 ([facility]) COVID-19 dose #1 given elsewhere Unspecified 05/29/2021 08:0 9:00 AM EDT completed eCW1 ([facility]) COVID-19 dose #1 given elsewhere Unspecified 05/29/2021 08:0 9:00 AM EDT completed eCW1 ([facility]) COVID-19 VACCINE Pfizer 02/18/2021 12:00:00 AM EDT completed [facility] Vaccine Series Complete: YESThis Data wa s Submitted to [facility] Via [facility]. COVID-19 VACCINE Pfizer 01/28/2021 12:00:00 AM EDT completed [facility] Vaccine Series Complete: NOThis Data was Submitted to [facility] Via Neul. This CVX code allows reporting of a vacc ination when formulation is unknown (for example, when recording a Influenza vaccination when noted on a vaccination card) 08/10/2020 10:25:00 AM EDT completed MEDEN T ([facility]) Medications Medication Brand Name Start Date Product Form Dose Route Admi nistrative Instructions Pharmacy Instructions Status Indications Reaction Description Data Source(s) Diclofenac Sodium 0.01 MG/MG Topical Gel Diclofenac Sodium 09/07/2021 12:00:00 AM EDT active [facility] Nitroglycerin 0.4 MG Sublingual Tablet Nitroglycerin 12:00:00 AM EDT SUBLINGUAL active MEDEN T ([facility]) clopidogrel 75 MG Oral Tablet [Plavix] Plavix 05/23/2021 12:00:00 AM EDT ORAL completed [facility] Amoxicillin 500 MG Oral Capsule Amoxicillin 04/12/2021 12:00:00 AM EDT ORAL active MEDENT ([facility]) Trintellix Trintellix 04/12/2021 12:00:00 AM EDT ORAL a ctive [facility] ([facility] [facility]) Covid-19 vaccine, Unspecified 02/18/2021 12:00:00 AM EDT completed MEDENT ([facility] Medication administered onsite Covid-19 vaccine, Unspecified 01/28/2021 12:00:00 AM EDT completed MEDENT ([facility]) Medication administered onsite Aspirin 325 MG Oral Tablet aspirin tablet 325 mg aspirin tab let 325 mg 01/25/2021 09:00:00 AM EDT 325 mg Oral active 325 mg, Oral, Once, [place] 01/25/21 at 0900, For 1 dose, Post-op [facility] Medication administered onsite clopidogrel 75 MG Oral Tablet clopidogrel (PLAVIX) tab let 75 mg clopidogrel (PLAVIX) tablet 75 mg 01/25/2021 09:00:00 AM EDT 75 mg Oral active 75 mg, Oral, Daily, First dose on [place] 01/25/21 at 0900, Post-op [facility] Medication administered onsite cefazolin (ANCEF) injection 2 g 01/24/2021 02:00:00 PM EDT 2 g completed Perioperative Pharmacoprophylaxis 2 g, I ntravenous Push, Administer over 6 Minutes, Once, Fri01/24/21 at 1400, For 1 dose
Prior to Discharge RN may administer IV push or infuse this medication through syringe adapter set ref [id number]. Flush line after use
[facility] Perioperative Pharmacoprophylaxis Medication administered onsite sodium chloride 0.9% (NS) infusion 2610-1989-86 01/24/2021 01:00:00 P M EDT Intravenous active at 75 mL/hr, Intravenous, Continuous, Starting Fri01/24/21 at 1300, For 6 days, Post-op [facility] Medication administered onsite 10 ML Atropine Sulfate 0.1 MG/ML Prefill ed Syringe atropine sulfate injection 0.5 mg atropine sulfate injection 0.5 mg 01/24/2021 12:18:12 PM EDT 0.5 mg active 0.5 mg, Intrave nous Push, Every 5 min PRN, other, As needed, for heart rate less than 60 BPM and the patient is hemodynamically unstable and/or SBP is less than 90mmHg, Starting Fri01/24/21 at 1218, For 1 day, Post-op
Not to exceed a total of 3 mg or 0.04 mg/kg. Max of 6 doses
[facility] Medication administered onsite Acetaminophen 325 MG Oral Tablet acetaminophen (TYLENO L) 325 MG tablet 650 mg acetaminophen (TYLENOL) 325 MG tablet 650 mg 01/24/2021 12:18:12 PM EDT 650 mg Oral active 650 mg, Or al, Every 4 hours PRN, mild pain (1-3), headaches, Starting Fri01/24/21 at 1218, Post-op
"Maximum dose of acetaminophen is 4,000 mg from all sources in 24 hours."
[facility] Medication administered onsite 1 ML heparin sodium, porcine 1000 UNT/ML Injection hep kelly (porcine) injection heparin (porcine) injection 01/24/2021 11:34:53 AM EDT active As needed, Starting Fri01/24/21 at 1134, Intra-Procedure [facility] Medication administered onsite lidocaine 1 % injection [id number] 01/24/2021 11:18:34 AM EDT active As needed, Starting Fri01/24/21 at 1118, Intra-Procedure [facility] Medication administered onsite fentaNYL Citrate (PF) (SUBLIMAZE) injection [id number] 01/24/2021 11:18:12 AM EDT active As neede d, Starting Fri01/24/21 at 1118, Intra-Procedure [facility] Medication administered onsite 2 ML Midazolam 1 MG/ML Injection midazolam (VERSED) in jection midazolam (VERSED) injection 01/24/2021 11:18:03 AM EDT active As needed, Starting Fri01/24/21 at 1118, Intra-Procedure [facility] Medication administered onsite cefazolin (ANCEF) injection 2 g 01/24/2021 11:00:00 AM EDT 2 g Intravenous completed Perioperative Pharmacoprophylaxis 2 g, Intravenous, Administer over 6 Minutes, call center support consultant, 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
RN may administer IV push or infuse this medication through syringe adapter set ref [id number]. Flush line after use
[facility] Perioperative Pharmacoprophylaxis Medication administered onsite sodium chloride 0.9% (NS) infusion [id number] 01/24/2021 11:00:00 AM EDT 150 mL/h Intravenous active at 150 m L/hr, 150 mL/hr, Intravenous, Continuous, Starting Fri01/24/21 at 1100, Pre-op
Start on admission
[facility] Medication administered onsite Aspirin 325 MG Oral Tablet aspirin tablet 325 mg aspirin tab let 325 mg 01/24/2021 11:00:00 AM EDT 325 mg Oral completed 325 mg, Oral, Once, 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, Pre-op [facility] Medication administered onsite Acetaminophen 325 MG Oral Tablet acetaminophen (TYLENO L) 325 MG tablet 650 mg acetaminophen (TYLENOL) 325 MG tablet 650 mg 01/24/2021 10:12:42 AM EDT 650 mg Oral active 650 mg, Or al, Every 4 hours PRN, mild pain (1-3), headaches, Starting Fri01/24/21 at 1012, Pre-op
"Maximum dose of acetaminophen is 4,000 mg from all sources in 24 hours."
[facility] Medication administered onsite normal saline flush 0.9 % injection 3 mL [id number] 01/24/2021 10:00:00 AM EDT 3 mL Intravenous active 3 mL , Intravenous, Every 8 hours (scheduled), First dose on Fri01/24/21 at 1000, Pre-op
Rapid push positive pressure flushing shall be performed with a 10 cc normal saline syringe to check the PATENCY of a PIV site prior to any infusion therapy initiation unless resistance is met.
[facility] Medication administered onsite sodium chloride 0.9% (NS) infusion [id number] 01/24/2021 10:00:00 AM EDT 100 mL/h Intravenous active at 100 m L/hr, 100 mL/hr, Intravenous, Continuous, Starting Fri01/24/21 at 1000, Pre-op [facility] Medication administered onsite Aspirin 81 MG Delayed Release Oral Tablet aspirin EC 8 1 MG EC tablet aspirin EC 81 MG EC tablet 01/24/2021 12:00:00 AM EDT 81 mg Oral ac tive Take 1 tablet (81 mg total) by mouth daily [facility] clopidogrel 75 MG Oral Tablet clopidogrel (PLAVIX) 75 MG tablet clopidogrel (PLAVIX) 75 MG tablet 01/24/2021 12:00:00 AM EDT 75 mg Oral active Take 1 tablet (75 mg total) by mouth daily Take 2 on 01/21, then 1 each day including DOP [facility] Amoxicillin 500 MG Oral Capsule amoxicillin (AMOXIL) 5 00 MG capsule amoxicillin (AMOXIL) 500 MG capsule 01/24/2021 12:00:00 AM EDT 2000 mg Oral active Take 4 capsules (2,000 mg total) by mout h once for 1 dose Take two hours before dental procedure [facility] clopidogrel 75 MG Oral Tablet [Plavix] Plavix 01/03/2021 12:00:00 A M EST active MED[facility] ([facility]) Sutab Sutab 12/07/2020 12:00:00 AM EST active [facility] ([facility]) gabapentin 300 MG Oral Capsule Gabapentin 12/04/2020 12:00:00 AM EST ORAL active [facility] ([facility]) Omeprazole 40 MG Delayed Release Oral Capsule Omeprazole 12/04/2020 12:00:00 AM EST ORAL active [facility] ([facility]) Cholecalciferol 1000 UNT Oral Tablet Vitamin D 12/04/2020 12:00:00 A M EST ORAL active [facility] ([facility]) Multivitamin Adult 12/04/2020 12:00:00 AM EST ORAL active [facility] ([facility]) vilazodone hydrochloride 40 MG Oral Tablet [Viibryd] Viibryd 12/04/2020 12:00:00 AM EST ORAL active [facility] ([facility]) Aspirin 81 MG Delayed Release Oral Tablet Aspirin 12/04/2020 1 2:00:00 AM EST ORAL active [facility] ([facility]) Rosuvastatin calcium 40 MG Oral Tablet [Crestor] Crestor 12/04/2020 12:00:00 AM EST ORAL active [facility] ([facility]) buspirone hydrochloride 10 MG Oral Tablet Buspirone HCL 12/04/2020 12:00:00 AM EST ORAL active [facility] ([facility]) Lisinopril 10 MG Oral Tablet Lisinopril 12/04/2020 12:00:00 AM EST ORAL active [facility] ([facility]) Levofloxacin 500 MG Oral Tablet Levofloxacin 11/25/2020 12:00:00 AM EST completed MED[facility] ([facility]) Aspirin 81 MG Delayed Release Oral Tablet aspirin EC 8 1 MG EC tablet aspirin EC 81 MG EC tablet 81 mg Oral aborted Take 81 mg by mouth daily [facility] clopidogrel 75 MG Oral Tablet clopidogrel (PLAVIX) 75 MG tablet clopidogrel (PLAVIX) 75 MG tablet 75 mg Oral aborted Take 75 mg by mouth daily Take 2 on 01/21, then 1 each day including DOP [facility] Insurance Providers Payer name Policy type / Coverage type Policy ID Covered green party ID Covered green party's relationship to schroeder Policy Schroeder Plan Information MEDICARE [id number] xxxxxxxxxxx [id number] MEDICARE [id number] SP [id number] A MEDICARE [id number] Robina [id number] F92 MEDICARE [id number] SP [id number] MEDICARE A [id number] Self [id number] MEDICARE A [id number] Self [id number] [place] [id number] Self [id number] [place] Primary [id number] Self [id number] [place] Primary [id number] Self [id number] [place] Primary [id number] Self [id number] MEDICAID M [id number] Self [id number] MEDICARE A [id number] Self [id number] A Medicaid [place] Medig[place] Part B [id number] Self [id number] [employer] [id number] Self Medicaid [facility] S D [id number] SELF [id number] Medicare C [id number] SELF [id number] A DME Jurisdiction A NHIC C [id number] S[place] [id number] [place] [id number] SP [id number] B [place] [id number] SP [id number] MEDICAID [id number] SP [id number] MEDICAID [id number] SP [id number] [place] Part B [id number] Self [id number] MEDICAID [id number] Robina [id number] MEDICAID [id number] xxxxxxxx [id number] ANSI-Medicaid [id number] [facility] [id number] Medicaid [facility] Part B [id number] Self [id number] Medicare [place] Primary [id number] Self [id number] ANSI-Medicare Part B [id number] ANSI-Medicaid [id number] MEDICARE [id number] A ANSI-Medicare Part B [id number] ANSI-Medicaid [id number] ANSI-Medicaid [id number] ANS-Medicare Part B [id number] ANSI-Medicaid [id number] ANSI-Medicare Part B [id number] MEDICARE C [id number] S [id number] A MEDICARE PART A -O/P [id number] 18 [id number] MEDICAID -O/P EMERGENCY ROOM [id number] Medicaid [facility] Part B [id number] Self [id number] Medicare [place] Medicare Primary [id number] Self [id number] MEDICAID UNAVAILABLE [place] BLE [place] [id number] Self Medicare [place] Medicare Primary [id number] Self Medicaid [facility] Part B [id number] Self Medicare [place]/NGS Medicare Primary [id number] Self MEDICARE -O/P [id number] 18 [id number] SELF PAY UNAVAILABLE SP U[place] BLE [place] Part B [id number] Self Medicare [place] Medicare Primary [id number] Self CONTRACT CLAIMS UNK SP UNK CONTRACT CLAIMS [id number] SP CLM [id number] CONTRACT CLAIMS UNAVAILABLE SP UN AVAILABLE MEDICAID W [id number] S [id number] [place] [id number] SP [id number] MEDICARE OUTPATIENT M [id number] S [id number] MEDICARE [id number] SP [id number] F92 [place] [id number] SP [id number] MEDICARE C [id number] S [id number] [id number] MEDICAID M [id number] S [id number] [facility] [id number] SP [id number] OTHER WORKERS COMPENSATION [id number] SP [id number] MEDICAID [id number] SP [id number] ANSI-Medicaid [id number] ANSI-Medicare Part B [id number] [place] Part [place] [id number] Self [id number] Medicare [place] Medicare Primary [id number] Self [id number] MEDICARE PART A -O/P [id number] 18 [id number] MEDICAID-O/P [id number] 18 [id number] MEDICAID [id number] S [id number] MEDICARE [id number] S [id number] F92 SELF PAY NONE S NONE ANSI-Medicare Part B [id number] ANSI-Medicaid [id number] ANSI-Medicare Part B [id number] ANSI-Medicaid [id number] ANSI-Medicaid [id number] ANSI-Medicare Part B [id number] ANSI-Medicare Part B [id number] Problems, Conditions, and Diagnoses Code Display Name Description Problem Type Effective Dates Data Source(s) Q21.1 Atrial septal defect Atrial septal defect Diagnosis 01/24/2021 09:14:00 AM EDT [facility] Stroke; right sided facial droop with dy arthria and right tongue deviation. Stroke; right sided facial droop with dyarthria and right tongue deviation. 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 Cerebral infarction due to embolism of cerebral arteries Problem 2020 12:00:00 AM EDT MEDENT ([facility] 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 secundum type atrial septal defect Problem 04/26/2021 12:00:00 AM EDT MEDENT ([facility]) I10 Essential hypertension Essential hypertension Problem 04/26/2021 12:00:00 AM EDT MEDENT ([facility]) K90.9 [id number] Intestinal malabsorption, unspecified typ e Problem 04/19/2021 12:00:00 AM EDT eCW1 ([facility]) E78.2 [id number] Mixed hyperlipidemia Problem 04/19/2021 12:0 0:00 AM EDT eCW1 ([facility]) R20.2 [id number] Left leg paresthesias Problem 0 04/19/2021 12:00:00 AM EDT eCW1 ([facility]) G47.33 [id number] LAURITA (obstructive sleep apnea) Problem 04/19/2021 12:00:00 AM EDT eCW1 ([facility]) I10 [id number] Essential hypertension Problem 04/19/2021 12 :00:00 AM EDT eCW1 ([facility]) Z85.038 005967319 History of colon cancer Problem 04/19/2021 1 2:00:00 AM EDT eCW1 ([facility]) D50.9 58926184 Iron deficiency anemia, unspecif ied iron deficiency anemia type Problem 04/19/2021 12:00:00 AM EDT eCW1 ([facility]) E55.9 Vitamin D deficiency Vitamin D deficiency Problem 04/19/2021 12:00:00 AM EDT eCW1 ([facility]) F41.8 [id number] Depression with anxiety Problem 04/19/2021 1 2:00:00 AM EDT eCW1 ([facility]) G62.9 579272053 Neuropathy Problem 04/19/2021 12:00:00 AM ED T eCW1 ([facility]) M21.6x2 Pronation Pronation Problem 03/11/2021 12:00:00 AM ED T MEDENT ([facility] M21.6x1 Pronation Pronation Problem 03/11/2021 12:00:00 AM ED T [facility] ([facility] S92.334D Closed fracture of third metatarsal bone Closed fracture of third metatarsal bone Problem 03/11/2021 12:00:00 AM EDT [facility] ([facility] R60.0 Edema Edema Problem 12/05/2020 12:00:00 AM ES T MEDENT ([facility]) R00.2 Palpitations Palpitations Problem 12/05/2020 12:00:00 A M EST MED[facility] ([facility]) E78.2 Mixed hyperlipidemia Mixed hyperlipidemia Problem 12/05/2020 12:00:00 AM EST [facility] ([facility]) Z71.3 Dietary management surveillance Dietary management sagrario veillance Problem 12/05/2020 12:00:00 AM EST [facility] ([facility]) E66.01 Morbid obesity Morbid obesity Problem 12/05/2020 12:00: 00 AM EST MED[facility] ([facility]) E78.00 Pure hypercholesterolemia Pure hypercholesterolemia Pr oblem 12/05/2020 12:00:00 AM EST MED[facility] ([facility]) I10 Essential hypertension Essential hypertension Problem 12/05/2020 12:00:00 AM EST [facility] ([facility]) I63.9 Cerebral artery occlusion Cerebral artery occlusion Pr oblem 12/05/2020 12:00:00 AM EST [facility] ([facility]) 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 secundum type atrial septal defect Problem 12/05/2020 12:00:00 AM EST [facility] ([facility]) Surgeries/Procedures Procedure Description Date Indications Data Source(s) OFFICE OUTPATIENT VISIT 10 MINUTES 09/07/2021 12:00:00 AM EDT MED[facility] ([facility] ECG ROUTINE ECG W/LEAST 12 LDS W/I&R 08/28/2021 12:00: 00 AM EDT MEDENT ([facility]) OFFICE OUTPATIENT VISIT 25 MINUTES 08/28/2021 12:00:00 AM EDT MEDENT ([facility]) Chronic Care MGMT 20 Mins Clinical Staff Time Per Calendar M [facility] 07/19/2021 12:00:00 AM EDT MEDENT ([facility]) OFFICE OUTPATIENT VISIT 10 MINUTES 07/06/2021 12:00:00 AM EDT [facility] ([facility] Chronic Care Management Services Ea Addl 20 Min 2020 12:00:00 AM EDT MEDENT ([facility]) Chronic Care MGMT 20 Mins Clinical Staff Time Per Calendar M [facility] 06/19/2021 12:00:00 AM EDT MED[facility] ([facility]) OFFICE OUTPATIENT VISIT 25 MINUTES 06/05/2021 12:00:00 AM EDT MEDENT ([facility] ) Pain Procedure Log 05/31/2021 12:00:00 AM EDT eCW1 ([facility]) Complex Chronic Care Management SVC 1St 60 Min 12:00:00 AM EDT MEDENT ([facility]) Complex Chronic Care MGMT Service Ea Addl 30 Min 05/24 12:00:00 AM EDT MED[facility] ([facility]) Needle electromyography, each extremity, with related paraspinal areas, when performed, done with nerve conduction, amplitude and latency/velocity study; complete, five or more muscles studied, innervated by three or more nerves or four or more spinal levels (list separately in addition to the code for primary procedure). 05/15/2021 12:00:00 AM EDT MEDEN T ([facility], ) Needle electromyography, each extremity, with related paraspinal areas, when performed, done with nerve conduction, amplitude and latency/velocity study; complete, five or more muscles studied, innervated by three or more nerves or four or more spinal levels (list separately in addition to the code for primary procedure). 05/15/2021 12:00:00 AM EDT MEDEN T ([facility], ) Nerve Conduction 9-10 Studies 05/15/2021 12:00:00 AM E DT MEDENT ([facility] ) OFFICE OUTPATIENT VISIT 10 MINUTES 05/04/2021 12:00:00 AM EDT [facility] ([facility] MRI SPINAL CANAL LUMBAR W/O CONTRAST MATERIAL 05/02/20 21 12:00:00 AM EDT MED[facility] ([facility] ) MRI SPINAL CANAL LUMBAR W/O CONTRAST MATERIAL 05/02/20 12:00:00 AM EDT MED[facility] ([facility], ) OFFICE OUTPATIENT VISIT 25 MINUTES 05/01/2021 12:00:00 AM EDT MED[facility] ([facility] ) ECHO Complete, Congenital Cardiac Anomalies 04/26/2021 12:00:00 AM EDT MED[facility] ([facility]) Doppler Echocardiography Complete 04/26/2021 12:00:00 AM EDT MED[facility] ([facility]) Doppler Color Flow Velocity Mapping 04/26/2021 12:00:0 0 AM EDT MED[facility] ([facility]) OFFICE OUTPATIENT VISIT 25 MINUTES 04/26/2021 12:00:00 AM EDT MEDENT ([facility]) Complex Chronic Care Management SVC 1St 60 Min 021 12:00:00 AM EDT MED[facility] ([facility]) Complex Chronic Care MGMT Service Ea Addl 30 Min 04/18 12:00:00 AM EDT MED[facility] ([facility]) Strapping Foot Or Ankle 03/08/2021 12:00:00 AM EDT [facility] ([facility] RADEX FOOT COMPLETE MINIMUM 3 VIEWS 03/08/2021 12:00:0 0 AM EDT [facility] ([facility] RADEX FOOT COMPLETE MINIMUM 3 VIEWS 03/08/2021 12:00:0 0 AM EDT [facility] ([facility] OFFICE OUTPATIENT NEW 30 MINUTES 03/08/2021 12:00:00 A M EDT [facility] ([facility] OFFICE OUTPATIENT VISIT 25 MINUTES 01/29/2021 12:00:00 AM EDT MED[facility] ([facility], ) INTRACARD ECHOCARD W/THER/DX IVNTJ INCL IMG S&I <td>EC HOCARDIOGRAM INTRACARDIAC</td><td>Routine</td><td>01/24/2021 11:57 AM EDT</td><td></td><td></td> 01/24/2021 03:57:41 PM EDT [facility] ECG ROUTINE ECG W/LEAST 12 LDS TRCG ONLY W/O I&R <td>E CG 12- LEAD</td><td>Routine</td><td>01/24/2021 9:39 AM EDT</td><td></td><td></td> 01/24/2021 01:39:31 PM EDT [facility] Percutaneous Transcatheter Closure, Atrial Septal Defect 01/24/2021 12:00:00 AM EDT MEDENT ([facility]) Intracardiac Echocardiography 01/24/2021 12:00:00 AM E DT MEDENT ([facility]) XTRNL PT ACTIVATED ECG RECORD MONITOR 30 DAYS 01/17/20 12:00:00 AM EST MED[facility] ([facility]) XTRNL PT ACTIVTD ECG DWNLD 30 DAYS PHYS R&I 01/16/2021 12:00:00 AM EST [facility] ([facility]) OFFICE OUTPATIENT VISIT 15 MINUTES 01/10/2021 12:00:00 AM EST MEDENT ([facility]) PHYSICIAN TELEPHONE EVALUATION 11-20 MIN 12/28/2020 12 :00:00 AM EST MED[facility] ([facility] ) UPPER NDSC BIOPSY SINGLE/MULTIPLE 12/20/2020 12:00:00 AM EST MEDENT ([facility]) COLONOSCOPY FLX DX W/WO COLLJ SPECIMENS 12/20/2020 12: 00:00 AM EST MEDENT ([facility]) TESTING AUTONOMIC NERVOUS SYSTEM FUNCTION 12/15/2020 1 2:00:00 AM EST MEDENT ([facility] ) TSTG ANS FUNCJ CARDIOVAGAL INNERVAJ PARASYMP 1 12:00:00 AM EST MEDENT ([facility] ) TSTG ANS FUNCJ CARDIOVAGAL INNERVAJ PARASYMP 1 12:00:00 AM EST [facility] ([facility], ) NON-INVASIVE PHYSIOLOGIC STUDY EXTREMITY 3 LEVLS 12/15 12:00:00 AM EST [facility] ([facility] ) TESTING AUTONOMIC NERVOUS SYSTEM FUNCTION 12/15/2020 1 2:00:00 AM EST [facility] ([facility]) Completion of procedural visit when meets criteria 12/13/2020 12:00:00 AM EST [email or web address] ([facility]) Magnetic Resonance Angiogtaphy Head W/O Contrast Material(S) 12/12/2020 12:00:00 AM EST [facility] ([facility]) Magnetic Resonance Angiogtaphy Head W/O Contrast Material(S) 12/12/2020 12:00:00 AM EST [facility] ([facility]) Magnetic Resonance Angiography Neck W/O Contrast Materials 12/12/2020 12:00:00 AM EST [facility] ([facility]) Magnetic Resonance Angiography Neck W/O Contrast Materials 12/12/2020 12:00:00 AM EST [facility] ([facility]) ECG ROUTINE ECG W/LEAST 12 LDS W/I&R 12/05/2020 12:00: 00 AM EST [facility] ([facility]) Arterial Pressure Waveform Analysis For Assessment Of Centra l Art 12/05/2020 12:00:00 AM EST MED[facility] ([facility]) OFFICE OUTPATIENT NEW 30 MINUTES 11/28/2020 12:00:00 A M EST MEDENT ([facility]) OFFICE OUTPATIENT VISIT 40 MINUTES 11/27/2020 12:00:00 AM EST MEDENT ([facility]) Needle electromyography, each extremity, with related paraspinal areas, when performed, done with nerve conduction, amplitude and latency/velocity study; complete, five or more muscles studied, innervated by three or more nerves or four or more spinal levels (list separately in addition to the code for primary procedure). 08/14/2020 12:00:00 AM EDT MEDEN T ([facility] ) Needle electromyography, each extremity, with related paraspinal areas, when performed, done with nerve conduction, amplitude and latency/velocity study; complete, five or more muscles studied, innervated by three or more nerves or four or more spinal levels (list separately in addition to the code for primary procedure). 08/14/2020 12:00:00 AM EDT MEDEN T ([facility] ) Nerve Conduction 11-12 Studies 08/14/2020 12:00:00 AM EDT MED[facility] ([facility] ) Needle electromyography, each extremity, with related paraspinal areas, when performed, done with nerve conduction, amplitude and latency/velocity study; complete, five or more muscles studied, innervated by three or more nerves or four or more spinal levels (list separately in addition to the code for primary procedure). 08/07/2020 12:00:00 AM EDT MEDEN T ([facility] ) Needle electromyography, each extremity, with related paraspinal areas, when performed, done with nerve conduction, amplitude and latency/velocity study; complete, five or more muscles studied, innervated by three or more nerves or four or more spinal levels (list separately in addition to the code for primary procedure). 08/07/2020 12:00:00 AM EDT MEDEN T ([facility] ) [address] Nerve conduction studies 7-8 studies 201208/07/2020 12:00:00 AM EDT MED[facility] ([facility] ) Results ID Date Data Source [id number] 08/30/2021 12:41:00 PM EDT MED[facility] ([facility]) Name Value Range Interpretation Code Description Data Rnoa rce(s) Supporting Document(s) Natriuretic peptide.B prohormone N-Terminal [Mass/volu me] in Serum or Plasma 21 pg/mL MED[facility] ([facility]) ID Date Data Source [id number] 08/30/2021 12:41:00 PM EDT [facility] ([facility]) Name Value Range Interpretation Code Description Data Rona rce(s) Supporting Document(s) Blood Urea Nitrogen 15 mg/dL 7-18 [facility] ([facility]di[facility]) Glucose, Fasting 88 mg/dL 70-100 [facility] ([facility]) Glomerular Filtration Rate Laboratory test result [facility] ([facility]) <content>Units are mL/min/1.73 m2</content>
<content></content>
<content>Chronic Kidney Disease Staging per NKF:</content>
<content></content>
<content>Stage I & II GFR >=60 Normal to Mildly Decreased</content>
<content>Stage III GFR 30- 59 Moderately Decreased</content>
<content>Stage IV GFR 15-29 Severely Decreased</content>
<content>Stage V GFR <15 Very Little GFR Left</content>
<content>ESRD GFR <15 on ACCOUNTS PAYABLE TECHNICIAN</content>
<content></content> Creatinine For GFR 0.77 mg/dL 0.55-1.30 [facility] ([facility]) Chloride Level 107 meq/L 98-107 [facility] ([facility]) Sodium Level 140 meq/L 136-145 [facility] ([facility]) Potassium Serum 4.2 meq/L 3.5-5.1 [facility] ([facility]io [facility]) Carbon Dioxide Level 29 meq/L 21-32 [facility] ([facility]) Anion Gap 4 meq/L 8-16 [facility] ([facility]) Calcium Level 9.0 mg/dL 8.8-10.2 [facility] ([facility]iolo [facility]) Ast/Sgot 18 U/L 7-37 [facility] ([facility]) Alkaline Phosphatase 122 U/L 45-117 [facility] ([facility]) Alt/SGPT 26 U/L 12-78 [facility] ([facility]) Total Protein 7.1 GM/DL 6.4-8.2 [facility] ([facility]) Albumin 3.9 GM/DL 3.2-5.2 [facility] ([facility]) Bilirubin,Total 0.6 mg/dL 0.2-1.0 [facility] ([facility]io [facility]) Albumin/Globulin Ratio 1.2 1.2-2.2 [facility] ([facility]) ID Date Data Source [id number] 08/30/2021 12:41:00 PM EDT MED[facility] ([facility]) Name Value Range Interpretation Code Description Data Rona rce(s) Supporting Document(s) White Blood Count 5.8 10 4.0-10.0 [facility] ([facility]) Hemoglobin 12.5 g/dL 12.0-15.5 [facility] ([facility]) Red Blood Count 4.37 10 4.00-5.40 [facility] ([facility]) Mean Corpuscular Volume 88.1 fl 80.0-96.0 M EDENT ([facility]) Hematocrit 38.5 % 36.0-47.0 [facility] ([facility]) Mean Corpuscular Hemoglobin 28.6 pg 27.0-33.0 [facility] ([facility]) Red Cell Distribution Width 13.4 % 11.5-14.5 [facility] ([facility]) Mean Corpuscular HGB Conc 32.5 g/dL 32.0-36.5 [facility] ([facility]) Nucleated Red Blood Cell % 0.0 % 0-0 MED ENT ([facility]) Platelet Count, Automated 231 10 150-450 [facility] ([facility]) ID Date Data Source [id number] 08/09/2021 12:00:00 AM EDT [facility] Name Value Range Interpretation Code Description Data Rona rce(s) Supporting Document(s) SARS-CoV2 Rapid Antigen Negative [facility] This lab was ordered by [facility] and reported by Thai Shay MD. ID Date Data Source [id number] 06/28/2021 10:57:00 AM EDT MED[facility] ([facility]) Name Value Range Interpretation Code Description Data Rona rce(s) Supporting Document(s) Albumin [Mass/volume] in Serum or Plasma 3.9 [facility] ([facility]) Calcium [Mass/volume] in Serum or Plasma 9.1 [facility] ([facility]) Alanine aminotransferase [Enzymatic activity/volume] in Serum or Pl asma 24 [facility] ([facility]) Carbon dioxide, total [Moles/volume] in Serum or Plasma 25 [facility] ([facility]) Chloride [Moles/volume] in Serum or Plasma 114 [facility] ([facility]) Potassium [Moles/volume] in Serum or Plasma 4.0 [facility] ([facility]) Alkaline phosphatase [Enzymatic activity/volume] in Serum or Plasma 1 18 [facility] ([facility]) Sodium 144 [facility] ([facility]) Aspartate aminotransferase [Enzymatic activity/volume] in Serum or Plasma 12 [facility] ([facility]) Protein [Mass/volume] in Serum or Plasma 6.9 [facility] ([facility]) Glucose 105 83-110 [facility] ([facility]) Urea nitrogen [Mass/volume] in Serum or Plasma 14 [facility] ([facility]) Creatinine For GFR 0.61 [facility] (Car [facility]) ID Date Data Source [id number] 06/28/2021 10:57:00 AM EDT [facility] ([facility]i [facility]) Name Value Range Interpretation Code Description Data Rona rce(s) Supporting Document(s) White Blood Count 6.2 5.0-10.0 [facility] ([facility]) Red Blood Count 4.48 4.00-5.40 [facility] ([facility]) Platelets 250 172-450 [facility] [place] [place] Hemoglobin 12.4 [facility] ([facility]) Hematocrit 39.0 [facility] ([facility]) ID Date Data Source [id number] 06/28/2021 08:11:00 AM EDT [facility] (Thai Shay MD) Name Value Range Interpretation Code Description Data Rona rce(s) Supporting Document(s) Cobalamin (Vitamin B12) [Mass/volume] in Serum or Plasma 461 pg/ mL 247-911 Normal (applies to non-numeric results) [facility] (Thai diaz MD) VITAMIN B12 NORMAL RANGE NORMAL 247 - 911 PG/ML INDETERMINATE 211 - 246 PG/ML DEFICIENT LESS THAN 211 PG/ML Ferritin [Mass/volume] in Serum or Plasma 70 ng/mL 8-252 Normal (applies to non- numeric results) [facility] (Thai Shay MD) ID Date Data Source [id number] 06/28/2021 08:11:00 AM EDT [facility] (Thai Shay MD) Name Value Range Interpretation Code Description Data Rona rce(s) Supporting Document(s) Laboratory test finding (navigational concept) 369 ug/dL 2 50-450 Normal (applies to non-numeric results) [facility] (Thai Shay MD) Laboratory test finding (navigational concept) 57 ug/dL 5 0-170 Normal (applies to non-numeric results) [facility] (Thai Shay MD) Laboratory test finding (navigational concept) 15.4 % 1 3.2-45.0 Normal (applies to non-numeric results) [facility] (Thai Shay MD) ID Date Data Source [id number] 06/28/2021 08:11:00 AM EDT [facility] (Thai Shay MD) Name Value Range Interpretation Code Description Data Rona rce(s) Supporting Document(s) Laboratory test finding (navigational concept) 105 mg/dL 7 0-100 Above high normal [facility] (Thai Shay MD) Laboratory test finding (navigational concept) 14 mg/dL 7 -18 Normal (applies to non-numeric results) [facility] (Thai Shay MD) Laboratory test finding (navigational concept) 0.61 mg/dL 0 .55-1.30 Normal (applies to non-numeric [...] Little GFR Left</content>
<content>ESRD GFR <15 on ACCOUNTS PAYABLE TECHNICIAN</content>
<content></content> Laboratory test finding (navigational concept) 114 meq/L 9 8-107 Above high normal [facility] (Thai Shay MD) Laboratory test finding (navigational concept) 4.0 meq/L 3 .5-5.1 Normal (applies to non-numeric results) [facility] (Thai Shay MD) Laboratory test finding (navigational concept) 144 meq/L 1 36-145 Normal (applies to non-numeric results) [facility] (Thai Shay MD) Laboratory test finding (navigational concept) 25 meq/L 2 1-32 Normal (applies to non-numeric results) [facility] (Thai Shay MD) Laboratory test finding (navigational concept) 5 meq/L 8-16 Below low normal [facility] (Thai Shay MD) Laboratory test finding (navigational concept) 12 U/L 7 -37 Normal (applies to non-numeric results) [facility] (Thai Shay MD) Laboratory test finding (navigational concept) 9.1 mg/dL 8 .8-10.2 Normal (applies to non-numeric results) [facility] (Thai Shay MD) Laboratory test finding (navigational concept) 24 U/L 1 2-78 Normal (applies to non-numeric results) [facility] (Thai Shay MD) Laboratory test finding (navigational concept) 0.5 mg/dL 0 .2-1.0 Normal (applies to non-numeric results) [facility] (Thai Shay MD) Laboratory test finding (navigational concept) 118 U/L 45-117 Above high normal [facility] (Thai Shay MD) Laboratory test finding (navigational concept) 6.9 GM/DL 6 .4-8.2 Normal (applies to non-numeric results) [facility] (Thai Shay MD) Laboratory test finding (navigational concept) 3.9 GM/DL 3 .2-5.2 Normal (applies to non-numeric results) [facility] (Thai Shay MD) Laboratory test finding (navigational concept) 1.3 1 .2-2.2 Normal (applies to non-numeric results) [facility] (Thai Shay MD) ID Date Data Source [id number] 06/28/2021 08:11:00 AM EDT [facility] (Thai Shay MD) Name Value Range Interpretation Code Description Data Rona rce(s) Supporting Document(s) Laboratory test finding (navigational concept) 6.2 10 4 .0-10.0 Normal (applies to non-numeric results) [facility] (Thai Shay MD) Laboratory test finding (navigational concept) 12.4 g/dL 1 2.0-15.5 Normal (applies to non-numeric results) [facility] (Thai Shay MD) Laboratory test finding (navigational concept) 39.0 % 3 6.0-47.0 Normal (applies to non-numeric results) [facility] (Thai Shay MD) Laboratory test finding (navigational concept) 4.48 10 4 .00-5.40 Normal (applies to non-numeric results) [facility] (Thai Shay MD) Laboratory test finding (navigational concept) 27.7 pg 2 7.0-33.0 Normal (applies to non-numeric results) [facility] (Thai Shay MD) Laboratory test finding (navigational concept) 31.8 g/dL 3 2.0-36.5 Below low normal [facility] (Thai Shay MD) Laboratory test finding (navigational concept) 87.1 fl 8 0.0-96.0 Normal (applies to non-numeric results) [facility] (Thai Shay MD) Laboratory test finding (navigational concept) 13.7 % 1 1.5-14.5 Normal (applies to non-numeric results) [facility] (Thai Shay MD) Laboratory test finding (navigational concept) 250 10 1 50-450 Normal (applies to non-numeric results) [facility] (Thai Shay MD) Laboratory test finding (navigational concept) 63.2 % 3 6.0-66.0 Normal (applies to non-numeric results) [facility] (Thai Shay MD) Laboratory test finding (navigational concept) 7.6 % 2 .0-8.0 Normal (applies to non-numeric results) [facility] (Thai Shay MD) Laboratory test finding (navigational concept) 26.5 % 2 4.0-44.0 Normal (applies to non-numeric results) [facility] (Thai Shay MD) Laboratory test finding (navigational concept) 1.9 % 0 .0-3.0 Normal (applies to non-numeric results) [facility] (Thai Shay MD) Laboratory test finding (navigational concept) 0.3 % 0 -3.0 Normal (applies to non-numeric results) [facility] (Thai Shay MD) Laboratory test finding (navigational concept) 0.5 % 0 .0-1.0 Normal (applies to non-numeric results) [facility] (Thai Shay MD) Laboratory test finding (navigational concept) 0.0 % 0 -0 Normal (applies to non- numeric results) [facility] (Thai Shay MD) Laboratory test finding (navigational concept) 3.9 10 1 .5-8.5 Normal (applies to non-numeric results) [facility] (Thai Shay MD) Laboratory test finding (navigational concept) 1.6 10 1 .5-5.0 Normal (applies to non-numeric [...] (Thai Shay MD) ID Date Data Source [id number] 02/05/2021 07:16:00 PM EDT [facility] (Thai Shay MD) Name Value Range Interpretation Code Description Data Rona rce(s) Supporting Document(s) Salicylates [Mass/volume] in Serum or Plasma Laboratory test res ult 5.0-30.0 Below low normal [facility] (Thai Shay MD) Acetaminophen [Mass/volume] in Serum or Plasma Laboratory test r esult 10.0-30.0 Below low normal [facility] (Thai Shay MD) Thyrotropin [Units/volume] in Serum or Plasma 1.050 uIU/ML 0. 358-3.740 Normal (applies to non-numeric results) [facility] (Thia Shay MD) ID Date Data Source [id number] 02/05/2021 07:16:00 PM EDT [facility] (Thai Shay MD) Name Value Range Interpretation Code Description Data Rona rce(s) Supporting Document(s) Laboratory test finding (navigational concept) 11 mg/dL 7 -18 Normal (applies to non-numeric results) [facility] (Thai Shay MD) Laboratory test finding (navigational concept) 101 mg/dL 7 0-100 Above high normal [facility] (Thai Shay MD) Laboratory test finding (navigational concept) 0.74 mg/dL 0 .55-1.30 Normal (applies to non-numeric [...] Little GFR Left</content>
<content>ESRD GFR <15 on ACCOUNTS PAYABLE TECHNICIAN</content>
<content></content> Laboratory test finding (navigational concept) 144 meq/L 1 36-145 Normal (applies to non-numeric results) [facility] (Thai Shay MD) Laboratory test finding (navigational concept) 3.8 meq/L 3 .5-5.1 Normal (applies to non-numeric results) [facility] (Thai Shay MD) Laboratory test finding (navigational concept) 30 meq/L 2 1-32 Normal (applies to non-numeric results) [facility] (Thai Shay MD) Laboratory test finding (navigational concept) 111 meq/L 9 8-107 Above high normal [facility] (Thai Shay MD) Laboratory test finding (navigational concept) 3 meq/L 8-16 Below low normal [facility] (Thai Shay MD) Laboratory test finding (navigational concept) 9.1 mg/dL 8 .8-10.2 Normal (applies to non-numeric results) [facility] (Thai Shay MD) ID Date Data Source [id number] 02/05/2021 07:16:00 PM EDT [facility] (Thai Shay MD) Name Value Range Interpretation Code Description Data Rona rce(s) Supporting Document(s) Laboratory test finding (navigational concept) 11 U/L 7 -37 Normal (applies to non-numeric results) [facility] (Thai Shay MD) Laboratory test finding (navigational concept) 123 U/L 45-117 Above high normal [facility] (Thai Shay MD) Laboratory test finding (navigational concept) 26 U/L 1 2-78 Normal (applies to non-numeric results) [facility] (Thai Shay MD) Laboratory test finding (navigational concept) 0.4 mg/dL 0 .2-1.0 Normal (applies to non-numeric results) [facility] (Thai Shay MD) Laboratory test finding (navigational concept) Laboratory test r esult 0.0-0.2 Normal (applies to non-numeric results) [facility] (Thai diaz MD) Laboratory test finding (navigational concept) 7.0 GM/DL 6 .4-8.2 Normal (applies to non-numeric results) A[facility] (Thai Shay MD) Laboratory test finding (navigational concept) 4.0 GM/DL 3 .2-5.2 Normal (applies to non-numeric results) [facility] (Thai Shay MD) Laboratory test finding (navigational concept) 1.3 1 .2-2.2 Normal (applies to non-numeric results) [facility] (Thai Shay MD) ID Date Data Source [id number] 02/05/2021 07:16:00 PM EDT MEDTANESHA (Thai Shay MD) Name Value Range Interpretation Code Description Data Rona rce(s) Supporting Document(s) Laboratory test finding (navigational concept) 64 U/L 2 6-192 Normal (applies to non-numeric results) [facility] (Thai Shay MD) Laboratory test finding (navigational concept) 1.2 ng/mL Normal (applies to non-numeric results) [facility] (Thai Shay MD) Laboratory test finding (navigational concept) 1.88 Normal (applies to non- numeric results) [facility] (Thai Shay MD) <content>DIAGNOSIS CRITERIA</content>
<content>MMB ng/ml Relative Index (RI)</content>
<content>NON-AMI < or = 5 N/A</content>
<content>LOCKHART ZONE > 5 < or = 4</content>
<content>AMI > 5 > 4</content>
<content></content> Laboratory test finding (navigational concept) Laboratory test r esult Normal (applies to non-numeric results) MEDTANESHA (Thai Shay MD) <content>Troponin I Reference Interval f or Siemens Redford LOCI:</content>
<content></content>
<content>99th Percentile= 0.00-0.045 ng/ml</content>
<content></content>
<content>Risk Stratification:</content>
<content><= 0.10 ng/ml Decreased Risk for Adverse Clinical</content>
<content>Events.</content>
<content>0.10-1.50 ng/ml Increased Risk for Adverse Clinical</content>
<content>Events. Evaluation of additional</content>
<content>criterion and/or repeat testing in 2-6</content>
<content>hours is suggested to rule out myocardial</content>
<content>damage.</content>
<content>>= 1.50 ng/ml Indicative of Myocardial Injury.</content>
<content></content> ID Date Data Source [id number] 02/05/2021 07:16:00 PM EDT [facility] (Thai Shay MD) Name Value Range Interpretation Code Description Data Rona rce(s) Supporting Document(s) Laboratory test finding (navigational concept) 6.8 10 4 .0-10.0 Normal (applies to non-numeric results) [facility] (Thai Shay MD) Laboratory test finding (navigational concept) 13.0 g/dL 1 2.0-15.5 Normal (applies to non-numeric results) [facility] (Thai Shay MD) Laboratory test finding (navigational concept) 4.63 10 4 .00-5.40 Normal (applies to non-numeric results) [facility] (Thai Shay MD) Laboratory test finding (navigational concept) 41.6 % 3 6.0-47.0 Normal (applies to non-numeric results) [facility] (Thai Shay MD) Laboratory test finding (navigational concept) 89.8 fl 8 0.0-96.0 Normal (applies to non-numeric results) [facility] (Thai Shay MD) Laboratory test finding (navigational concept) 28.1 pg 2 7.0-33.0 Normal (applies to non-numeric results) [facility] (Thai Shay MD) Laboratory test finding (navigational concept) 13.7 % 1 1.5-14.5 Normal (applies to non-numeric results) [facility] (Thai Shay MD) Laboratory test finding (navigational concept) 31.3 g/dL 3 2.0-36.5 Below low normal [facility] (Thai Shay MD) Laboratory test finding (navigational concept) 245 10 1 50-450 Normal (applies to non-numeric results) [facility] (Thai Shay MD) Laboratory test finding (navigational concept) 61.7 % 3 6.0-66.0 Normal (applies to non-numeric results) [facility] (Thai Shay MD) Laboratory test finding (navigational concept) 27.3 % 2 4.0-44.0 Normal (applies to non-numeric results) [facility] (Thai Shay MD) Laboratory test finding (navigational concept) 6.9 % 2 .0-8.0 Normal (applies to non-numeric results) [facility] (Thai Shay MD) Laboratory test finding (navigational concept) 3.0 % 0 .0-3.0 Normal (applies to non-numeric results) [facility] (Thai Shay MD) Laboratory test finding (navigational concept) 0.7 % 0 .0-1.0 Normal (applies to non-numeric results) [facility] (Thai Shay MD) Laboratory test finding (navigational concept) 0.4 % 0 -3.0 Normal (applies to non-numeric results) [facility] (Thai Shay MD) Laboratory test finding (navigational concept) 0.0 % 0 -0 Normal (applies to non- numeric results) [facility] (Thai Shay MD) Laboratory test finding (navigational concept) 4.2 10 1 .5-8.5 Normal (applies to non-numeric results) [facility] (Thai Shay MD) Laboratory test finding (navigational concept) 1.9 10 1 .5-5.0 Normal (applies to non-numeric results) [facility] (Thai Shay MD) Laboratory test finding (navigational concept) 0.5 10 0 .0-0.8 Normal (applies to non-numeric results) [facility] (Thai Shay MD) Laboratory test finding (navigational concept) 0.1 10 0 .0-0.2 Normal (applies to non-numeric results) [facility] (Thai Shay MD) Laboratory test finding (navigational concept) 0.2 10 0 .0-0.5 Normal (applies to non-numeric results) JUAN ANTONIO (Thai Shay MD) ID Date Data Source [id number] 01/24/2021 12:08:32 PM EDT [facility] INFORMATIONPatient MRN Name Date of Age Gend*PT [id number] Susy Fernandes 1960 60 years F HOPPT Location Admission Date/Time Visit ID Attending [id number] 01/24/21 0914 --- Gisela Franks MD([id number]) EPI ID CSN Admitting Provider [id number] Gisela Franks MD([id number])[facility] [place]. [facility] [id number] [place] [id number]-Csmpabtmo CARDIAC CATHETERIZATIONBretom Fernandes60 yearsfe[facility] 2020Operator: Carmenza Perez physician: Dr. Sainioperative Diagnosis: PFO and CVAPostoperative Diagnosis: PFO and CVAPROCEDURES:1. Intracardiac echo.2. Successful closure of a PFO with an 25-mm [place] Cardioform device.HISTORY:This is a pleasant 60-year-old female patient who sustained an acute CVA. Herwork-up was unrevealing with exception of PFO on JUANITA. She has been monitoredfor 1 month without recurrence of any significant arrhythmia.Patient is now referred for percutaneous PFO closurePlease refer to my office note for full disclosure of our discussion especiallyas it pertains to the difference between PFO closure and medical treatment.TECHNIQUE: Informed consent was obtained. Preprocedural Kefzol was administered.The patient was brought to the lab in a fasting state. An 12 and 8.5-Frenchsheath were inserted into the right femoral vein. The 8- [place] AcuNav ICEcatheter was advanced and careful examination showed a PFOwith bidirectional shunt, predominantly left to right. Agitatedsaline contrast bubble injection was performed, which revealed the ruwpr-ih-nboq shunt.Percutaneous PFO closure: the PFO was crossed with MP1 catheter and asoft tip Glidewire, which was advanced to the left superior pulmonary vein.Heparin was given IV.A 25-mm [place] cardio form device was prepped, deaired, and advanced to the leftatrium.The left atrial disc was pulled, the device was pulled against the septumwhereby the right atrial disc was deployed.After appropriate confirmation on JUANITA and fluoroscopy the device was releasedand stayed in excellent position.Repeat JUANITA showed no significant shuntingSUMMARY: Successful closure of a PFO with bidirectional shunt usingan 25-mm [place] Cardioform device with excellent results. The patient willbe discharged home later today.The amadeo ent will be maintained on aspirin indefinitely, Plavix for at least 6months.Antibiotic prophylaxis is recommended for the next one year.Patient will follow up with Dr. Shay in 3 months with an echocardiogram Name Value Range Interpretation Code Description Data Rona rce(s) Supporting Document(s) ID Date Data Source [id number] 01/24/2021 10:19:22 AM EDT [facility] Name Value Range Interpretation Code Description Data Rona rce(s) Supporting Document(s) EKG [facility] OEYOQz7wJnOWKoHqf3GoUdEcVVDvPJ0orws1A6V5rFSdX6JsxCLjq2rxP2GeA8WhKROuKHILNP2FaQOk jb2 [file] genetic [file] COMPLAINT MANAGER+xomMENSF6aI7k9wGZVORWxAEK31QUAcBvPP2cqODQw/zsIltPOk925L0Kfnqe984wyj56a+Ne7oW+ [file] HEgKCcP9gYJoUQaUvEUfGAUXhTHtKhlWwXnKsvCl08T8o+print traffic manager/jZKT7BYEEWTPXBPSQ35iuhJCh/kMCQ z53htGg0QNZcROuwiykg/9l3jdWb/8//+ZnL/vp8nTD84Vr4kMv/es9D/7trUz8P0b5mB78oeuo/vnPi 4l6Ene5Z/oNjmf5M9Z7qJomqOMAB/4KtBJp8H67y/u VQHVp/tCf9x/fM3mLdZ8/nyf/74/skr5+C/J0UH/rHV+v//vj+eaKH/Alonso+Y2lwbtPtwg+Dd4Dsmzs51 L/3qeH/i7pzsM58Ut4eo3mn14NvoLu5A0i7qrZIz2Nvg833o+V+CH9t5AU6+c/zuipoAseoI2r7ZQzAL adIJ6aHw5gUL92mbJ2Nz2JZv9r1KMfEZnvz5zL6za6 bZ2ZVM3dofenp15JadGv6/PDd+kzO61X0/en+c4+/E/O9b3kj4jqZ6g+/uNreR9/Menard/ut5/Oliveros/vWz35e UZIh5Sua/9GWnx++ut1uphny/PD1/XobcF2sq0+cveGHb+9GqEbJFYJdbZNfbAB85WnDuh/hT2FfxL69 15SNeMWTQJmznc60llpKUmlxrgeka/q+bO97t/P+Jr 3f+20NBNCGWiWf1zFIlxEfXcDH2hSgPm2x7KWA5gh7YDUHjkMGasjlO7kIrxVK0DpolEF9TUsAmFB9SY iPsGR1PBjJoPY0LNyQpIM9GNvE+F2dCzS6wBgZ5oVpYp3di+0BMyDrlrB2TqSFGeJT5Ev/E3wn+E5c78 Q0OvaelpUbKA/wd8j3ygxUG6/JtfqaNtAOOkDvplNf MD2zNEQ5Gbmd+Fy8Wbtz+Lc4Wmr1+Gp3Vvh8+Bs4Uwo7+Hp8TwtR+Yj7EmlT+Qi4EvsR+By3RlfO+G7w 7qA3bWhF9jkoYy2bzXk0caKgtKb7V8kJqlJE1Ln1xVjCSwwZh8+Ju8AmwY+Lo8SkhW+Vx4FitS+Ar4Kv gq+Cx4Ctzu+Zy4Cnpm+Cb+gizLEOjSZFI87r+70wUl /N/LztnDEWaAPtoA/ncj15H921rok9z8CeMBuGVm3oncN+ZvwjHC2WuRD8kA1Z26RDFpSa/X+Zdqj3Ih +gJ+h16Py+tWM1L3Xbip++weP0zy2cjlKW6CLwvoPDO91Bq3xvuS43bbvAnZAVtjy2gjw9fH5mAw6/Oliveros [file] g2OLwaINZRVl== ID Date Data Source [id number] 01/24/2021 09:49:48 AM EDT [facility] INFORMATIONPatient MRN Name Date of Age Gend*PT [id number] Susy Fernandes 1960 60 years F HOPPT Location Admission Date/Time Visit ID Attending ProviderCV-01/24/21 0914 --- Gisela Franks MD([id number]) EPI ID CSN Admitting Provider [id number] Gisela Franks MD([id number])Updated H&PPlease see the scanned/dictated outpatient note.I have reviewed the note, clinical history and physical exam findings. Therehave been no significant changes.Plan as outlined in the outpatient note.Risk/benifit/alternative of cardiac catheterization was discussed withpatient/family. Risks included, but not limited to; [place], CVA, , renalimpairment, vascular complication, and need for emergency surgery were discussedand accepted by patient.Gisela Franks MD, [facility], [facility] ENIDAIInterventional Wildlife Ecology Professor Name Value Range Interpretation Code Description Data Rona rce(s) Supporting Document(s) ID Date Data Source [id number] 01/19/2021 10:00:00 AM EST [facility] (Thai Shay MD) Name Value Range Interpretation Code Description Data Rona rce(s) Supporting Document(s) Laboratory test finding (navigational concept) Laboratory test result [facility] (Thai Shay MD) This nucleic acid amplification test was developed and its performance characteristics determined by [employer]. Nucleic acid amplification tests include RT- PCR [...] detected) result in this assay. Performed at: [employer] [facility] [employer] [place] [id number] [id number] Guest Relations Agent: Lalitha Pulido PhD, Phone: [phone] Not Detected ID Date Data Source [id number] 01/19/2021 10:00:00 AM EST [facility] ([facility] Name Value Range Interpretation Code Description Data Rona rce(s) Supporting Document(s) Laboratory test finding (navigational concept) Laboratory test result [facility] ([facility]) This nucleic acid amplification test was developed and its performance characteristics determined by [employer]. Nucleic acid amplification tests include RT- PCR [...] detected) result in this assay. Performed at: [employer] [facility] [employer] [place] [id number] Guest Relations Agent: Lalitha Pulido PhD, Phone: [phone] Not Detected ID Date Data Source [id number] 01/19/2021 10:00:00 AM EST [facility] Name Value Range Interpretation Code Description Data Rona rce(s) Supporting Document(s) SARS coronavirus 2 RNA Not Detected [facility] [place] This lab was ordered by [facility] and reported by [employer]. ID Date Data Source [id number] 01/11/2021 05:49:00 PM EST [facility] ([facility] Name Value Range Interpretation Code Description Data Rona rce(s) Supporting Document(s) White Blood Count 7.1 4.0-10.0 [facility] ([facility]) Platelets 241 150-450 [facility] ([facility] Red Blood Count 4.30 4.00-5.40 [facility] ([facility]) Hemoglobin 12.1 [facility] ([facility]) Hematocrit 38.7 [facility] ([facility]) ID Date Data Source [id number] 01/11/2021 05:49:00 PM EST [facility] ([facility]) Name Value Range Interpretation Code Description Data Rona rce(s) Supporting Document(s) Glucose 109 70-100 [facility] ([facility]) Blood Urea Nitrogen 17 7-18 [facility] ([facility]) Creatinine 0.70 0.6-1.0 [facility] ([facility]) Sodium 143 136-145 [facility] ([facility]) Potassium 4.0 3.5-5.1 [facility] ([facility]) Chloride 110 98-107 [facility] ([facility]) Carbon Dioxide 28 21-32 [facility] ([facility]) Calcium 9.2 8.2-9.6 [facility] ([facility]) Glomerular filtration rate/1.73 sq M.pre dicted [Volume Rate/Area] in Serum or Plasma by Creatinine-based formula (MDRD) Laboratory test result [facility] ([facility]) ID Date Data Source [id number] 01/11/2021 08:52:00 AM EST [facility] (Thai Shay MD) Name Value Range Interpretation Code Description Data Rona rce(s) Supporting Document(s) Laboratory test finding (navigational concept) 17 mg/dL 7 -18 Normal (applies to non-numeric results) [facility] (Thai Shay MD) Laboratory test finding (navigational concept) 109 mg/dL 7 0-100 Above high normal [facility] (Thai Shay MD) Laboratory test finding (navigational concept) 0.70 mg/dL 0 .55-1.30 Normal (applies to non-numeric results) [facility] (Thai Shay MD) Laboratory test finding (navigational concept) Laboratory test r esult Normal (applies to non-numeric results) [facility] (Thai Shay MD) <content>Units are mL/min/1.73 m2</content>
<content></content>
<content>Chronic Kidney Disease Staging per NKF:</content>
<content></content>
<content>Stage I & II GFR >=60 Normal to Mildly Decreased</content>
<content>Stage III GFR 30-59 Moderately Decreased</content>
<content>Stage IV GFR 15-29 Severely Decreased</content>
<content>Stage V GFR <15 Very Little GFR Left</content>
<content>ESRD GFR <15 on ACCOUNTS PAYABLE TECHNICIAN</content>
<content></content> Laboratory test finding (navigational concept) 143 meq/L 1 36-145 Normal (applies to non-numeric results) [facility] (Thai Shay MD) Laboratory test finding (navigational concept) 110 meq/L 9 8-107 Above high normal [facility] (Thai Shay MD) Laboratory test finding (navigational concept) 4.0 meq/L 3 .5-5.1 Normal (applies to non-numeric results) [facility] (Thai Shay MD) Laboratory test finding (navigational concept) 28 meq/L 2 1-32 Normal (applies to non-numeric results) [facility] (Thai Shay MD) Laboratory test finding (navigational concept) 5 meq/L 8-16 Below low normal [facility] (Thai Shay MD) Laboratory test finding (navigational concept) 9.2 mg/dL 8 .8-10.2 Normal (applies to non-numeric results) JUAN ANTONIO (Thai Shay MD) ID Date Data Source [id number] 01/11/2021 08:52:00 AM EST [facility] (Thai Shay MD) Name Value Range Interpretation Code Description Data Rona rce(s) Supporting Document(s) Laboratory test finding (navigational concept) 7.1 10 4 .0-10.0 Normal (applies to non-numeric results) [facility] (Thai Shay MD) Laboratory test finding (navigational concept) 4.30 10 4 .00-5.40 Normal (applies to non-numeric results) [facility] (Thai Shay MD) Laboratory test finding (navigational concept) 12.1 g/dL 1 2.0-15.5 Normal (applies to non-numeric results) [facility] (Thai Shay MD) Laboratory test finding (navigational concept) 38.7 % 3 6.0-47.0 Normal (applies to non-numeric results) [facility] (Thai Shay MD) Laboratory test finding (navigational concept) 90.0 fl 8 0.0-96.0 Normal (applies to non-numeric results) [facility] (Thai Shay MD) Laboratory test finding (navigational concept) 28.1 pg 2 7.0-33.0 Normal (applies to non-numeric results) [facility] (Thai Shay MD) Laboratory test finding (navigational concept) 31.3 g/dL 3 2.0-36.5 Below low normal [facility] (Thai Shay MD) Laboratory test finding (navigational concept) 13.4 % 1 1.5-14.5 Normal (applies to non-numeric results) [facility] (Thai Shay MD) Laboratory test finding (navigational concept) 241 10 1 50-450 Normal (applies to non-numeric results) [facility] (Thai Shay MD) Laboratory test finding (navigational concept) 61.5 % 3 6.0-66.0 Normal (applies to non-numeric results) [facility] (Thai Shay MD) Laboratory test finding (navigational concept) 27.5 % 2 4.0-44.0 Normal (applies to non-numeric results) [facility] (Thai Shay MD) Laboratory test finding (navigational concept) 2.7 % 0 .0-3.0 Normal (applies to non-numeric results) [facility] (Thai Shay MD) Laboratory test finding (navigational concept) 7.2 % 2 .0-8.0 Normal (applies to non-numeric results) [facility] (Thai Shay MD) Laboratory test finding (navigational concept) 0.7 % 0 .0-1.0 Normal (applies to non-numeric results) [facility] (Thai Shay MD) Laboratory test finding (navigational concept) 0.4 % 0 -3.0 Normal (applies to non-numeric results) [facility] (Thai Shay MD) Laboratory test finding (navigational concept) 0.0 % 0 -0 Normal (applies to non- numeric results) [facility] (Thai Shay MD) Laboratory test finding (navigational concept) 4.4 10 1 .5-8.5 Normal (applies to non-numeric results) JUAN ANTONIO (Thai Shay MD) Laboratory test finding (navigational concept) 2.0 10 1 .5-5.0 Normal (applies to non-numeric results) JUAN ANTONIO (Thai Shay MD) Laboratory test finding (navigational concept) 0.5 10 0 .0-0.8 Normal (applies to non-numeric results) [facility] (Thai Shay MD) Laboratory test finding (navigational concept) 0.2 10 0 .0-0.5 Normal (applies to non-numeric results) JUAN ANTONIO (Thai Shay MD) Laboratory test finding (navigational concept) 0.1 10 0 .0-0.2 Normal (applies to non-numeric results) JUAN ANTONIO (Thai Shay MD) ID Date Data Source [id number] 01/11/2021 08:52:00 AM EST [facility] ([facility] Name Value Range Interpretation Code Description Data Rona rce(s) Supporting Document(s) Glucose, Fasting 109 mg/dL 70-100 Above high normal M [facility] ([facility]) Blood Urea Nitrogen 17 mg/dL 7-18 Normal (applies to non-nume presley results) [facility] ([facility]) Creatinine For GFR 0.70 mg/dL 0.55-1.30 Normal (applies to non -numeric results) [facility] ([facility]) Glomerular Filtration Rate Laboratory test result Normal (applies to non- numeric results) [facility] ([facility]) <content>Units are mL/min/1.73 m2</content>
<content></content>
<content>Chronic Kidney Disease Staging per NKF:</content>
<content></content>
<content>Stage I & II GFR >=60 Normal to Mildly Decreased</content>
<content>Stage III GFR 30-59 Moderately Decreased</content>
<content>Stage IV GFR 15-29 Severely Decreased</content>
<content>Stage V GFR <15 Very Little GFR Left</content>
<content>ESRD GFR <15 on ACCOUNTS PAYABLE TECHNICIAN</content>
<content></content> Sodium Level 143 meq/L 136-145 Normal (applies to non-numeric res ults) [facility] ([facility]) Potassium Serum 4.0 meq/L 3.5-5.1 Normal (applies to non-numeric results) [facility] ([facility]) Chloride Level 110 meq/L 98-107 Above high normal [facility] ([facility]) Carbon Dioxide Level 28 meq/L 21-32 Normal (applies to non-num odilia results) [facility] ([facility]) Calcium Level 9.2 mg/dL 8.8-10.2 Normal (applies to non-numeric re sults) [facility]) Anion Gap 5 meq/L 8-16 Below low normal [facility]) ID Date Data Source [id number] 01/11/2021 08:52:00 AM EST [facility] ([facility] Name Value Range Interpretation Code Description Data Rona rce(s) Supporting Document(s) White Blood Count 7.1 10 4.0-10.0 Normal (applies to non-numeri c results) [facility] ([facility]) Red Blood Count 4.30 10 4.00-5.40 Normal (applies to non-numeric results) [facility] ([facility]) Hemoglobin 12.1 g/dL 12.0-15.5 Normal (applies to non-numeric resul ts) [facility] ([facility]) Hematocrit 38.7 % 36.0-47.0 Normal (applies to non-numeric resul ts) [facility] ([facility]) Mean Corpuscular Volume 90.0 fl 80.0-96.0 Normal ( applies to non-numeric results) [facility] ([facility]) Mean Corpuscular Hemoglobin 28.1 pg 27.0-33.0 Norm al (applies to non-numeric results) [facility] ([facility]) Mean Corpuscular HGB Conc 31.3 g/dL 32.0-36.5 Below low normal [facility] ([facility]) Platelet Count, Automated 241 10 150-450 Normal (applies to non-numeric results) [facility] ([facility]) Red Cell Distribution Width 13.4 % 11.5-14.5 Norm al (applies to non-numeric results) [facility] ([facility]) Neutrophils % 61.5 % 36.0-66.0 Normal (applies to non-numeric re sults) [facility] ([facility]) Lymph % 27.5 % 24.0-44.0 Normal (applies to non-numeric resul ts) [facility] ([facility]) [place] % 7.2 % 2.0-8.0 Normal (applies to non-numeric resul ts) [facility] ([facility]) Eos % 2.7 % 0.0-3.0 Normal (applies to non-numeric resul ts) [facility] ([facility]) Baso % 0.7 % 0.0-1.0 Normal (applies to non-numeric resul ts) [facility] ([facility]) Immature Granulocyte % 0.4 % 0-3.0 Normal (applies to non-n umeric results) [facility] ([facility]) Nucleated Red Blood Cell % 0.0 % 0-0 Normal (applies to n on-numeric results) [facility] ([facility]) Neutrophils # 4.4 10 1.5-8.5 Normal (applies to non-numeric re sults) [facility] ([facility]) Lymph # 2.0 10 1.5-5.0 Normal (applies to non-numeric resul ts) [facility] ([facility]) [place] # 0.5 10 0.0-0.8 Normal (applies to non-numeric resul ts) [facility] ([facility]) Eos # 0.2 10 0.0-0.5 Normal (applies to non-numeric resul ts) [facility] ([facility]) Baso # 0.1 10 0.0-0.2 Normal (applies to non-numeric resul ts) [facility] ([facility]) ID Date Data Source [id number] 01/01/2021 12:09:00 PM EST [facility] (Thai Shay MD) Name Value Range Interpretation Code Description Data Rona rce(s) Supporting Document(s) Creatine kinase [Enzymatic activity/volume] in Serum or Plasma 6 9 U/L 26-192 Normal (applies to non-numeric results) [facility] (Thai diaz MD) ID Date Data Source [id number] 01/01/2021 12:09:00 PM EST [facility] (Thai Shay MD) Name Value Range Interpretation Code Description Data Rona rce(s) Supporting Document(s) Laboratory test finding (navigational concept) 197 mg/dL Above high normal [facility] (Thai Shay MD) Laboratory test finding (navigational concept) 203 mg/dL Above high normal [facility] (Thai Shay MD) Laboratory test finding (navigational concept) 88 mg/dL Normal (applies to non-numeric results) [facility] (Thai Shay MD) Laboratory test finding (navigational concept) 76 mg/dL Normal (applies to non-numeric results) [facility] (Thai Shay MD) Laboratory test finding (navigational concept) 127 mg/dL Normal (applies to non-numeric results) [facility] (Thai Shay MD) Laboratory test finding (navigational concept) 2.671 Normal (applies to non- numeric results) [facility] (Thai Shay MD) ID Date Data Source [id number] 01/01/2021 12:09:00 PM EST [facility] (Thai Shay MD) Name Value Range Interpretation Code Description Data Rona rce(s) Supporting Document(s) Laboratory test finding (navigational concept) 109 mg/dL 7 0-100 Above high normal [facility] (Thai Shay MD) Laboratory test finding (navigational concept) 15 mg/dL 7 -18 Normal (applies to non-numeric results) [facility] (Thai Shay MD) Laboratory test finding (navigational concept) 0.69 mg/dL 0 .55-1.30 Normal (applies to non-numeric results) [facility] (Thai Shay MD) Laboratory test finding (navigational concept) Laboratory test r esult Normal (applies to non-numeric results) [facility] (Thai Shay MD) <content>Units are mL/min/1.73 m2</content>
<content></content>
<content>Chronic Kidney Disease Staging per NKF:</content>
<content></content>
<content>Stage I & II GFR >=60 Normal to Mildly Decreased</content>
<content>Stage III GFR 30-59 Moderately Decreased</content>
<content>Stage IV GFR 15-29 Severely Decreased</content>
<content>Stage V GFR <15 Very Little GFR Left</content>
<content>ESRD GFR <15 on ACCOUNTS PAYABLE TECHNICIAN</content>
<content></content> Laboratory test finding (navigational concept) 142 meq/L 1 36-145 Normal (applies to non-numeric results) [facility] (Thai Shay MD) Laboratory test finding (navigational concept) 4.1 meq/L 3 .5-5.1 Normal (applies to non-numeric results) [facility] (Thai Shay MD) Laboratory test finding (navigational concept) 107 meq/L 9 8-107 Normal (applies to non-numeric results) [facility] (Thai Shay MD) Laboratory test finding (navigational concept) 25 meq/L 2 1-32 Normal (applies to non-numeric results) [facility] (Thai Shay MD) Laboratory test finding (navigational concept) 10 meq/L 8 -16 Normal (applies to non-numeric results) [facility] (Thai Shay MD) Laboratory test finding (navigational concept) 9.7 mg/dL 8 .8-10.2 Normal (applies to non-numeric results) [facility] (Thai Shay MD) Laboratory test finding (navigational concept) 17 U/L 7 -37 Normal (applies to non-numeric results) [facility] (Thai Shay MD) Laboratory test finding (navigational concept) 28 U/L 1 2-78 Normal (applies to non-numeric results) [facility] (Thai Shay MD) Laboratory test finding (navigational concept) 122 U/L 45-117 Above high normal [facility] (Thai Shay MD) Laboratory test finding (navigational concept) 0.6 mg/dL 0 .2-1.0 Normal (applies to non-numeric results) [facility] (Thai Shay MD) Laboratory test finding (navigational concept) 7.2 GM/DL 6 .4-8.2 Normal (applies to non-numeric results) [facility] (Thai Shay MD) Laboratory test finding (navigational concept) 1.3 1 .2-2.2 Normal (applies to non-numeric results) MED[facility] (Thai Shay MD) Laboratory test finding (navigational concept) 4.1 GM/DL 3 .2-5.2 Normal (applies to non-numeric results) [facility] (Thai Shay MD) ID Date Data Source [id number] 01/01/2021 12:09:00 PM EST [facility] (Thai Shay MD) Name Value Range Interpretation Code Description Data Rona rce(s) Supporting Document(s) Laboratory test finding (navigational concept) 6.5 10 4 .0-10.0 Normal (applies to non-numeric results) MED[facility] (Thai Shya MD) Laboratory test finding (navigational concept) 12.9 g/dL 1 2.0-15.5 Normal (applies to non-numeric results) [facility] (Thai Shay MD) Laboratory test finding (navigational concept) 4.69 10 4 .00-5.40 Normal (applies to non-numeric results) JUAN ANTONIO (Thai Shay MD) Laboratory test finding (navigational concept) 41.7 % 3 6.0-47.0 Normal (applies to non-numeric results) [facility] (Thai Shay MD) Laboratory test finding (navigational concept) 88.9 fl 8 0.0-96.0 Normal (applies to non-numeric results) [facility] (Thai Shay MD) Laboratory test finding (navigational concept) 27.5 pg 2 7.0-33.0 Normal (applies to non-numeric results) [facility] (Thai Shay MD) Laboratory test finding (navigational concept) 30.9 g/dL 3 2.0-36.5 Below low normal [facility] (Thai Shay MD) Laboratory test finding (navigational concept) 237 10 1 50-450 Normal (applies to non-numeric results) [facility] (Thai Shay MD) Laboratory test finding (navigational concept) 13.5 % 1 1.5-14.5 Normal (applies to non-numeric results) [facility] (Thai Shay MD) Laboratory test finding (navigational concept) 0.0 % 0 -0 Normal (applies to non- numeric results) [facility] (Thai Shay MD) ID Date Data Source [id number] 12/25/2020 01:04:00 PM EST MED[facility] (Thai Shay MD) Name Value Range Interpretation Code Description Data Rona rce(s) Supporting Document(s) Ferritin [Mass/volume] in Serum or Plasma 79 ng/mL 8-252 Normal (applies to non- numeric results) [facility] (Thai Shay MD) Thyroxine (T4) free [Mass/volume] in Serum or Plasma 0.85 ng/dL 0.76-1.46 Normal (applies to non-numeric results) [facility] (Thai Shay MD ) Thyrotropin [Units/volume] in Serum or Plasma 1.150 uIU/ML 0. 358-3.740 Normal (applies to non-numeric results) [facility] ([facility] Shay MD) ID Date Data Source [id number] 12/25/2020 01:04:00 PM EST JUAN ANTONIO (Thai [...] 1 3.2-45.0 Normal (applies to non-numeric results) JUAN ANTONIO (Thai Shay MD) ID Date Data Source [id number] 12/25/2020 01:04:00 PM EST MEDTANESHA (Thai Shay MD) Name Value Range Interpretation Code Description Data Rona rce(s) Supporting Document(s) Laboratory test finding (navigational concept) 94 mg/dL 7 0-100 Normal (applies to non-numeric results) MEDENT (Thai Shay MD) Laboratory test finding (navigational concept) 0.76 mg/dL 0 .55-1.30 Normal (applies to non-numeric results) MEDTANESHA (Thai Shay MD) Laboratory test finding (navigational concept) 14 mg/dL 7 -18 Normal (applies to non-numeric results) MEDTANESHA (Thai Shay MD) Laboratory test finding (navigational concept) Laboratory test r esult Normal (applies to non-numeric results) MEDTANESHA (Thai Shay MD) <content>Units are mL/min/1.73 m2</content>
<content></content>
<content>Chronic Kidney Disease Staging per NKF:</content>
<content></content>
<content>Stage I & II GFR >=60 Normal to Mildly Decreased</content>
<content>Stage III GFR 30- 59 Moderately Decreased</content>
<content>Stage IV GFR 15-29 Severely Decreased</content>
<content>Stage V GFR <15 Very Little GFR Left</content>
<content>ESRD GFR <15 on [employer]ABLE [employer]CHNICIAN</content>
<content></content> Laboratory test finding (navigational concept) 3.8 meq/L 3 .5-5.1 Normal (applies to non-numeric results) MEDTANESHA (Thai Shay MD) Laboratory test finding (navigational concept) 143 meq/L 1 36-145 Normal (applies to non-numeric results) JUAN ANTONIO [...] .4-8.2 Normal (applies to non-numeric results) MEDENT (Thai Shay MD) ID Date Data Source [id number] 12/25/2020 01:04:00 PM EST MEDENT (Thai Shay [...] 2 4.0-44.0 Normal (applies to non-numeric results) JUAN ANTONIO (Thai Shay MD) Laboratory test finding (navigational concept) 0.6 % 0 .0-1.0 Normal (applies to non-numeric results) AURELIOENT (Thai [...] (Thai Shay MD) ID Date Data Source [id number] 12/22/2020 09:40:00 AM EST [facility] Name Value Range Interpretation Code Description Data Rona rce(s) Supporting Document(s) SARS coronavirus 2 RNA Not Detected [facility] This lab was ordered by [facility] and reported by [facility]. ID Date Data Source [id number] 12/20/2020 11:18:00 AM EST MED[facility] (Formerly named [facility]) Name Value Range Interpretation Code Description Data Rona rce(s) Supporting Document(s) Surgical pathology study Laboratory test result MEDENT ([facility]) FINAL DIAGNOSIS Below Z line, biopsy: Junctional mucosa with chronic inflammation and reactive changes. No evidence for intestinal metaplasia. 12/21/2020 - 1346 CLINICAL DIAGNOSIS Refractory heartburn, personal history of colon cancer 12/21/2020 - 3114 GROSS DIAGNOSIS Received in formalin labeled "below Z-line biopsy" consists of four fragments of jacobsen tissue, 0.4 x 0.4 x 0.2 cm in aggregate. All in one. -SV 12/21/2020 - 0723 Signed AVTAR RIVAS MD 12/21/2020 1437 ID Date Data Source [id number] 12/15/2020 09:30:00 AM EST [facility] Name Value Range Interpretation Code Description Data Rona rce(s) Supporting Document(s) SARS coronavirus 2 RNA Not Detected [facility] [place] This lab was ordered by [facility] and reported by [facility]. ID Date Data Source [id number] 12/08/2020 10:00:00 AM EST [facility] Name Value Range Interpretation Code Description Data Rona rce(s) Supporting Document(s) SARS coronavirus 2 RNA Not Detected [facility] [place] This lab was ordered by [facility] and reported by [facility]. ID Date Data Source [id number] 11/06/2020 11:01:00 AM EST [facility] ([facility] Name Value Range Interpretation Code Description Data Rona rce(s) Supporting Document(s) Carbon dioxide, total [Moles/volume] in Serum or Plasma 28 MEDENT ([facility]) Calcium [Mass/volume] in Serum or Plasma 8.6 [facility] ([facility]) Sodium 144 MEDENT ([facility]) Chloride [Moles/volume] in Serum or Plasma 109 [facility] ([facility]) Potassium [Moles/volume] in Serum or Plasma 3.9 MED[facility] ([facility]) Blood Urea Nitrogen 13 5-21 MED[facility] ([facility]) Creatinine 0.67 0.6-1.5 MED[facility] ([facility]) Glucose 100 70-100 [facility] Glomerular filtration rate/1.73 sq M.pre dicted [Volume Rate/Area] in Serum or Plasma by Creatinine-based formula (MDRD) 60.0 MEDENT ([facility]) ID Date Data Source [id number] 11/06/2020 11:01:00 AM EST [facility] ([facility]) Name Value Range Interpretation Code Description Data Rona rce(s) Supporting Document(s) Red Blood Count 4.13 4.70-6.20 [facility] White Blood Count 6.0 4.3-10.9 [facility] ([facility] Hemoglobin 11.5 13.0-17.0 [facility] ([facility]) Hematocrit 36.7 39.0-50.0 [facility] ([facility]) Platelets 219 130-400 MED[facility] ([facility]) ID Date Data Source [id number] 11/04/2020 08:58:25 PM [facility] Name Value Range Interpretation Code Description Data Rona rce(s) Supporting Document(s) Progress Note [facility] YTJCIg4gXeMDQfYu88/QQLplKCMbt2OrPEdtMNy0PMhvBHAvT4LvMQI3qA3nMBI2MXoEFxLtGdGkFmL8 m [file] ICAgICAgICAgICAgICAgICAgICAgICAgICAgICAgIC AgICAgICAgICAgICAgICAgICAgICAgICAgICAgICAgICAgICAgICAgICAgICAgICAgICAgICAgICAgIC AgDQogICAgICAgICAgICAgICAgICAgICAgICAgICAgICAgICAgICAgICAgICAgICAgICAgICAgICAgIC AgICAgICAgICAgICAgICAgICAgICAgICAgICAgICAg ICAgICAgICAgICAgDQogICAgICAgICAgICAgICAgICAgICAgICAgICAgICAgICAgICAgICAgICAgICAg ICAgICAgICAgICAgICAgICAgICAgICAgICAgICAgICAgICAgICAgICAgICAgICAgICAgICAgDQogICAg ICAgICAgICAgICAgICAgICAgICAgICAgICAgICAgIC AgICAgICAgICAgICAgICAgICAgICAgICAgICAgICAgICAgICAgICAgICAgICAgICAgICAgICAgICAgIC AgICAgDQogICAgICAgICAgICAgICAgICAgICAgICAgICAgICAgICAgICAgICAgICAgICAgICAgICAgIC AgICAgICAgICAgICAgICAgICAgICAgICAgICAgICAg ICAgICAgICAgICAgICAgDQogICAgICAgICAgICAgICAgICAgICAgICAgICAgICAgICAgICAgICAgICAg ICAgICAgICAgICAgICAgICAgICAgICAgICAgICAgICAgICAgICAgICAgICAgICAgICAgICAgICAgDQog ICAgICAgICAgICAgICAgICAgICAgICAgICAgICAgIC AgICAgICAgICAgICAgICAgICAgICAgICAgICAgICAgICAgICAgICAgICAgICAgICAgICAgICAgICAgIC AgICAgICAgDQogICAgICAgICAgICAgICAgICAgICAgICAgICAgICAgICAgICAgICAgICAgICAgICAgIC AgICAgICAgICAgICAgICAgICAgICAgICAgICAgICAg ICAgICAgICAgICAgICAgICAgDQogICAgICAgICAgICAgICAgICAgICAgICAgICAgICAgICAgICAgICAg ICAgICAgICAgICAgICAgICAgICAgICAgICAgICAgICAgICAgICAgICAgICAgICAgICAgICAgICAgICAg DQogICAgICAgICAgICAgICAgICAgICAgICAgICAgIC AgICAgICAgICAgICAgICAgICAgICAgICAgICAgICAgICAgICAgICAgICAgICAgICAgICAgICAgICAgIC SzILWkRUXgTDCjZEq8E4kbJSDzMYXqGN8tJJc8Wc5+NMgKUcTdOAC2xbOpfS7KQF8uj4SfONvtNVPuj7 DsHAi6BY5VWITlIBnsWX7AYVeigu3BFKNeBARzeDMP v2mkOuViIBR7THQxUlnjZJ4PQVGzI7qbmqVkYLSpAFZXPMhjWMQYKAmvQVZDPILeODPbDzQnATyuFW5H r7YymNQ8UQx+Sh6SWD5rj3XkEGvqQQOsBS4vam4QWHoFFbCgT5VwecI7OYS3JZNbWz2QLELsJRAofZHy ZBDlBIPVBoHmW3PzuP35KFPVOw4+DQplbmRvYmoNCj S6YQVhq8MeREe6RN3FURWbJJe7lNPeRLJdN5Etb0EmIa78ADXfEkzuRMXzoDHoVKOmOUGsd3YtRZYLHj PTXXTvtHFwTh6lLi7tXIMySLO6MzZ3QFZXLJ4LINTuKTZyiNMaECYoASCCYK0VHYmzLYP3GCBhfrSjrU PeTHzbGD2HXKBsbiVfZdemEXTPUWv+Ui4SKN8sz4Oy FTzhSBZsKQ6jrt4XMCkYZrNxW6C0iKZoY4M6SKinNd0UMRAtRZOgJvHyRZJRWWbeRQ0GCP9hufV7RT2L cJToQZRwLGXwlHMhXHu2G97rqQXzSYtaLQ1PKIC+Raulito+Yg2KDVIuKIXuCWZqAoGoRZENBiKvP5NpZ4IS m6XdP2DgLN74sRnvekMaPAdrCI8YJJ7lBUUzNKWYMP 8FcUYrdC9zlfBdXSChDMAGSxTmM85ozEDiTLKkJAX0SKIxGn8SINXqJ2ZyfeMyrAtfpyNzMSBkMTSYML 9YQArnieHmlIUygVimEJ81mGooJB3EHf3YGtRyRB4maw2MmTCcBy9PVHGkVY6JALHcELPtFGVjIPS5IG ShCoVuTTuxZKIdBYSpTIL2UMLvHVAaCW8TQmOwICGy WwN5CAGeHSQnHZXjoy0OJRUuHIXfNMI9SFRjRNCrGLLdKUooSCScUONiQTH8OFZmOXRhGV0DTxOvBUZz GAN2LUAuUUNbEKDemq1GPZWcZPRmJbr3HzFpGIAsCCQlPGgiKLPfQPG2BnI0CEOsVZFuNA6KAxNdKIBk VEx8UrYpJYOcUYFzoe2VBTNpOHLgAeH1DcMzCEObPB LdRKojTOYdEJItLxD5PCXjTADmMJ7ICfRbUYCtMYGkLSDhVNSgCALzin2GAAOpFMFxQdEqEuPtOLAgKQ GdIZozXSYaMST3OUv6TEBuXKRaJA6AWpQtFBPgMFV9QmAsQYFjAPQnrn4UYWGlMQHkZVb3IxUnCABnDO IqNWwsAPZeBAQ6YYB2JLJpLKKkUW7XAdQyDBIkINPl QEwqULBfKERatf5AGNGgJOUsErOlEsLtPRDgZFWeCJisWQBrXMIzUBE4ANReXLPxRG2UKqMlATYpPuKo ZuYbWWUlCIKlyp8QKJZbHREvDVCfAQEkOBYdBROeSKlxMSGuKNZ6ZPFbKSFwCTZgWB1JRiOmHRXgDaYz JQlyBAEtVETpvh4MLXVfXYBgVcVxVyGgATXyKFVdQL mgFWDtLVO2CtTaQHShZEAmKS9LPqLzADOaItRqQHEcWRGiWBZlsg3QEHWtCYIrXvrgJSXrJRYhOCUgBI mjFVWdDTH6KnE9INKuNZSyKH8JYuLtGSCnGwxxVjnrXRNfIWCobd2NBTKhILEeWSE7ZnEcAQRrFVHvFG m8ujQfuIKcEVj4ZM5DX7PjthXpToRCSq1Qs986QHDk PVXwKm8CK3khVt0aXWXcRRWPRe5UVWw9DMfcGfW7TQKxXxG4FYVaMEEkOLKnFEH6DwD0OJH0DwH+IDxl KmW2SIm6VPZkITa5ATY9EsRiZeFgNAE8KrLmLMxhXd7iUEEVFu8+JFtkaFUxmZpeDFEPKiH2SkB1CHxd BNKFWm8L ID Date Data Source [id number] 11/04/2020 08:33:00 PM EST [facility] Name Value Range Interpretation Code Description Data Rona rce(s) Supporting Document(s) SARS coronavirus 2 RNA [Presence] in Res piratory specimen by VIKAS with probe detection [facility] This lab was ordered by [facility] a nd reported by [facility]. ID Date Data Source [id number] 10/26/2020 12:00:00 AM EST [facility] Name Value Range Interpretation Code Description Data Rona rce(s) Supporting Document(s) SARS-CoV2 Rapid Antigen [facility] This lab was ordered by [facility] and reported by Thai Shay MD. ID Date Data Source [id number] 08/14/2020 10:54:00 AM EDT [facility] ([facility]) Name Value Range Interpretation Code Description Data Rona rce(s) Supporting Document(s) White Blood Count 5.6 5.0-10.0 [facility] ([facility]) Red Blood Count 4.30 4.00-5.40 [facility] ([facility]) Platelets 218 172-450 [facility] ([facility]iology [facility]) Hemoglobin 12.1 [facility] ([facility]) Hematocrit 38.3 [facility] ([facility]) ID Date Data Source [id number] 08/14/2020 10:54:00 AM EDT [facility] ([facility]) Name Value Range Interpretation Code Description Data Rona rce(s) Supporting Document(s) Cholesterol 195 [facility] ([facility]) Triglycerides 184 [facility] ([facility]) HDL 62 [facility] ([facility]) Cholesterol in LDL [Mass/volume] in Serum or Plasma by calculation 95 [facility] ([facility]) Chol/HDL Ratio 3.145 [facility] ([facility]) ID Date Data Source [id number] 08/14/2020 10:54:00 AM EDT [facility] ([facility]) Name Value Range Interpretation Code Description Data Rona rce(s) Supporting Document(s) Albumin [Mass/volume] in Serum or Plasma 4.0 [facility] ([facility]) Alanine aminotransferase [Enzymatic activity/volume] in Serum or Pl asma 28 MED[facility] ([facility]) Calcium [Mass/volume] in Serum or Plasma 9.2 [facility] ([facility]) Carbon dioxide, total [Moles/volume] in Serum or Plasma 29 [facility] ([facility]) Alkaline phosphatase [Enzymatic activity/volume] in Serum or Plasma 1 40 [facility] ([facility]) Potassium [Moles/volume] in Serum or Plasma 4.5 [facility] ([facility]) Chloride [Moles/volume] in Serum or Plasma 111 [facility] ([facility]) Aspartate aminotransferase [Enzymatic activity/volume] in Serum or Plasma 15 [facility] ([facility]) Sodium 144 [facility] ([facility]) Protein [Mass/volume] in Serum or Plasma 7.0 [facility] ([facility]) Glucose 105 83-110 [facility] Urea nitrogen [Mass/volume] in Serum or Plasma 13 [facility] ([facility]) Creatinine For GFR 0.72 [facility] ([facility]) ID Date Data Source [id number] 08/10/2020 10:00:00 AM EDT [facility] Name Value Range Interpretation Code Description Data Rona rce(s) Supporting Document(s) SARS coronavirus 2 RNA [facility] This lab was ordered by [facility] and reported by [facility]. Procedure Social History Code Duration Value Status Description Data Source(s ) Smoking 08/30/2021 12:00:00 AM EDT Never Smoker completed Never S moker eCW1 ([facility]) Smoking 08/28/2021 12:00:00 AM EDT Patient has never smoked co mpleted Patient has never smoked [facility] ([facility]) Smoking 07/06/2021 12:00:00 AM EDT Never Smoker completed Never S moker eCW1 ([facility]) Smoking 06/11/2021 12:00:00 AM EDT Never Smoker completed Never S moker eCW1 ([facility]) Smoking 06/11/2021 12:00:00 AM EDT Never Smoker completed Never S moker eCW1 ([facility]) Smoking 06/11/2021 12:00:00 AM EDT Never Smoker completed Never S moker eCW1 ([facility]) Smoking 06/11/2021 12:00:00 AM EDT Never Smoker completed Never S moker eCW1 ([facility]) Smoking 05/31/2021 12:00:00 AM EDT Never Smoker completed Never S moker eCW1 ([facility]) Smoking 05/31/2021 12:00:00 AM EDT Never Smoker completed Never S moker eCW1 ([facility]) Smoking 05/29/2021 12:00:00 AM EDT Never Smoker completed Never S moker eCW1 ([facility]) Smoking 05/16/2021 12:00:00 AM EDT Never Smoker completed Never S moker eCW1 ([facility]) Smoking 05/16/2021 12:00:00 AM EDT Never Smoker completed Never S moker eCW1 ([facility]) Smoking 05/16/2021 12:00:00 AM EDT Never Smoker completed Never S moker eCW1 ([facility]) Smoking 04/25/2021 12:00:00 AM EDT Patient has never smoked co mpleted Patient has never smoked MEDENT ([facility]) Smoking 04/19/2021 12:00:00 AM EDT Never Smoker completed Never S moker eCW1 ([facility]) Smoking 04/19/2021 12:00:00 AM EDT Never Smoker completed Never S moker eCW1 ([facility]) Smoking 04/17/2021 12:00:00 AM EDT Never Smoker completed Never S moker eCW1 ([facility]) Alcohol intake 01/24/2021 12:00:00 AM EDT Not Currently completed [facility] Smoking 01/24/2021 12:00:00 AM EDT Never smoker completed Never s moker [facility] Smoking 01/08/2021 12:00:00 AM EST Never Smoker completed Never S moker eCW1 ([facility]) Smoking 12/13/2020 12:00:00 AM EST Never Smoker completed Never S moker eCW1 ([facility]) Smoking 12/13/2020 12:00:00 AM EST Never Smoker completed Never S moker eCW1 ([facility]) Smoking 11/17/2020 12:00:00 AM EST Never Smoker completed Never S moker eCW1 ([facility]) Smoking 11/17/2020 12:00:00 AM EST Never Smoker completed Never S moker eCW1 ([facility]) Smoking 08/15/2020 12:00:00 AM EDT Never Smoker completed Never S moker eCW1 ([facility]) Vital Signs ID Date Data Source [id number] Name Value Range Interpretation Code Description Data Source(s) Body weight 218.0 [lb_av] 218.0 [lb_av] eCW1 ([facility]) Body weight 98.88 kg 98.88 kg eCW1 ([facility]) Body height 64 [in_i] 64 [in_i] eCW1 ([facility]) Body mass index (BMI) [Ratio] 37.42 kg/m2 37.42 kg/m2 eCW1 ([facility]) Heart rate 77 /min 77 /min eCW1 ([facility]) Respiratory rate 18 /min 18 /min eCW1 ([facility]) Body temperature 97.1 [degF] 97.1 [degF] eCW1 ( [facility]) Systolic blood pressure 149 mm[Hg] 149 mm[Hg] e CW1 ([facility]) Diastolic blood pressure 70 mm[Hg] 70 mm[Hg] eCW1 ([facility]) Body mass index (BMI) [Ratio] 38.3 kg/m2 38.3 k g/m2 [facility] ([facility]) Heart rate 66 /min 66 /min [facility] ([facility]) Systolic blood pressure--sitting 128 mm[Hg] 128 mm[Hg] [facility] ([facility]) Ra, large cuff Diastolic blood pressure--sitting 74 mm[Hg] 74 mm[Hg] [facility] ([facility]) Ra, large cuff Body weight 216.00 [lb_av] 216.00 [lb_av] MEDEN T ([facility]) Body height 63 [in_i] 63 [in_i] MEDENT ([facility]) 5'3" Body weight 217 [lb_av] 217 [lb_av] eCW1 ([facility]) Body weight 98.43 kg 98.43 kg eCW1 ([facility]) Body height 64 [in_i] 64 [in_i] eCW1 ([facility]) Body mass index (BMI) [Ratio] 37.24 kg/m2 37.24 kg/m2 eCW1 ([facility]) Body temperature 97.5 [degF] 97.5 [degF] eCW1 ( [facility]) Body weight 217 [lb_av] 217 [lb_av] eCW1 ([facility]) Body weight 98.43 kg 98.43 kg eCW1 ([facility]) Body height 64 [in_i] 64 [in_i] eCW1 ([facility]) Body mass index (BMI) [Ratio] 37.24 kg/m2 37.24 kg/m2 eCW1 ([facility]) Heart rate 73 /min 73 /min eCW1 ([facility]) Respiratory rate 19 /min 19 /min eCW1 ([facility]) Body temperature 97.7 [degF] 97.7 [degF] eCW1 ( [facility]) Systolic blood pressure 128 mm[Hg] 128 mm[Hg] e CW1 ([facility]) Diastolic blood pressure 84 mm[Hg] 84 mm[Hg] eCW1 ([facility]) Body weight 220 [lb_av] 220 [lb_av] eCW1 ([facility]) Heart rate 69 /min 69 /min eCW1 ([facility]) Respiratory rate 20 /min 20 /min eCW1 ([facility]) Body temperature 98.0 [degF] 98.0 [degF] eCW1 ( [facility]) Systolic blood pressure 157 mm[Hg] 157 mm[Hg] e CW1 ([facility]) Body height 64 [in_i] 64 [in_i] eCW1 ([facility]) Body mass index (BMI) [Ratio] 37.76 kg/m2 37.76 kg/m2 eCW1 ([facility]) Diastolic blood pressure 78 mm[Hg] 78 mm[Hg] eCW1 ([facility]) Body weight 220 [lb_av] 220 [lb_av] eCW1 ([facility]) Systolic blood pressure 120 mm[Hg] 120 mm[Hg] e CW1 ([facility]) Diastolic blood pressure 80 mm[Hg] 80 mm[Hg] eCW1 ([facility]) Body height 64 [in_i] 64 [in_i] eCW1 ([facility]) Body mass index (BMI) [Ratio] 37.76 kg/m2 37.76 kg/m2 eCW1 ([facility]) Heart rate 77 /min 77 /min eCW1 ([facility]) Respiratory rate 20 /min 20 /min eCW1 ([facility]) Body temperature 97 [degF] 97 [degF] eCW1 ([facility]) Body weight 223 [lb_av] 223 [lb_av] eCW1 ([facility]) Body height 64 [in_i] 64 [in_i] eCW1 ([facility]) Body mass index (BMI) [Ratio] 38.27 kg/m2 38.27 kg/m2 eCW1 ([facility]) Heart rate 66 /min 66 /min eCW1 ([facility]) Respiratory rate 16 /min 16 /min eCW1 ([facility]) Body temperature 98.2 [degF] 98.2 [degF] eCW1 ( [facility]) Systolic blood pressure 134 mm[Hg] 134 mm[Hg] e CW1 ([facility]) Diastolic blood pressure 75 mm[Hg] 75 mm[Hg] eCW1 ([facility]) Systolic blood pressure 140 mm[Hg] 140 mm[Hg] M EDENT ([facility]) Diastolic blood pressure 80 mm[Hg] 80 mm[Hg] MEDENT ([facility]) Heart rate 60 /min 60 /min MEDENT ([facility]) Body weight 224.00 [lb_av] 224.00 [lb_av] MEDEN T ([facility]) Body height 63 [in_i] 63 [in_i] MEDENT ([facility]) 5'3" Body mass index (BMI) [Ratio] 39.7 kg/m2 39.7 k g/m2 MEDENT ([facility]) Oxygen saturation in Arterial blood by Pulse oximetry 99 % 99 % MEDENT ([facility]) Body surface area Derived from formula 2.03 m2 2.03 m2 MEDENT ([facility]) Body weight 225 [lb_av] 225 [lb_av] eCW1 ([facility]) Body height 64 [in_i] 64 [in_i] eCW1 ([facility]) Body mass index (BMI) [Ratio] 38.62 kg/m2 38.62 kg/m2 eCW1 ([facility]) Heart rate 80 /min 80 /min eCW1 ([facility]) Respiratory rate 18 /min 18 /min eCW1 ([facility]) Body temperature 96.6 [degF] 96.6 [degF] eCW1 ( [facility]) Systolic blood pressure 134 mm[Hg] 134 mm[Hg] e CW1 ([facility]) Diastolic blood pressure 78 mm[Hg] 78 mm[Hg] eCW1 ([facility]) Body weight 226.2 [lb_av] 226.2 [lb_av] eCW1 ([facility]) Body height 64 [in_i] 64 [in_i] eCW1 ([facility]) Body mass index (BMI) [Ratio] 38.82 kg/m2 38.82 kg/m2 eCW1 ([facility]) Heart rate 84 /min 84 /min eCW1 ([facility]) Respiratory rate 18 /min 18 /min eCW1 ([facility]) Body temperature 97.0 [degF] 97.0 [degF] eCW1 ( [facility]) Systolic blood pressure 151 mm[Hg] 151 mm[Hg] e CW1 ([facility]) Diastolic blood pressure 84 mm[Hg] 84 mm[Hg] eCW1 ([facility]) Body height 64 [in_i] 64 [in_i] MEDENT ([facility] 5'4" Body weight 227.00 [lb_av] 227.00 [lb_av] MEDEN T ([facility] Systolic blood pressure 114 mm[Hg] 114 mm[Hg] M EDENT ([facility] Diastolic blood pressure 80 mm[Hg] 80 mm[Hg] MEDENT ([facility] Heart rate 86 /min 86 /min MED[facility] ([facility] Body mass index (BMI) [Ratio] 39.0 kg/m2 39.0 k g/m2 MEDENT ([facility] Body height 62 [in_i] 62 [in_i] MEDENT ([facility] 5'2" Body weight 225.00 [lb_av] 225.00 [lb_av] MEDEN T ([facility] Body mass index (BMI) [Ratio] 41.1 kg/m2 41.1 k g/m2 MEDENT ([facility] Oxygen saturation in Arterial blood by Pulse oximetry 98 % 98 % [facility] Systolic blood pressure 134 mm[Hg] 134 mm[Hg] [facility] Diastolic blood pressure 87 mm[Hg] 87 mm[Hg] [facility] Heart rate 64 /min 64 /min [facility] Body temperature 36.5 Debra 36.5 Debra [facility] Respiratory rate 16 /min 16 /min [facility] Body height 161.3 cm 161.3 cm [facility] Body weight 101.7 kg 101.7 kg [facility] Body mass index (BMI) [Ratio] 39.09 kg/m2 39.09 kg/m2 [facility] Systolic blood pressure 133 mm[Hg] 133 mm[Hg] M EDENT (Thai Shay MD) Body height 64 [in_i] 64 [in_i] MEDENT (Thai Shay MD) 5'4" Body weight 227.38 [lb_av] 227.38 [lb_av] MEDEN T (Thai Shay MD) Body mass index (BMI) [Ratio] 39.0 kg/m2 39.0 k g/m2 MEDENT (Thai Shay MD) Body temperature 97.3 [degF] 97.3 [degF] MEDENT (Thai Shay MD) Heart rate 88 /min 88 /min MEDENT (Thai Shay MD) Diastolic blood pressure 83 mm[Hg] 83 mm[Hg] MEDENT (Thai Shay MD) Oxygen saturation in Arterial blood by Pulse oximetry 94 % 94 % MEDENT (Thai Shay MD) Systolic blood pressure 119 mm[Hg] 119 mm[Hg] e CW1 ([facility]) Body temperature 96.5 [degF] 96.5 [degF] eCW1 ( [facility]) Body weight 228 [lb_av] 228 [lb_av] eCW1 ([facility]) Body height 64 [in_i] 64 [in_i] eCW1 ([facility]) Body mass index (BMI) [Ratio] 39.13 kg/m2 39.13 kg/m2 eCW1 ([facility]) Diastolic blood pressure 76 mm[Hg] 76 mm[Hg] eCW1 ([facility]) Heart rate 62 /min 62 /min eCW1 ([facility]) Respiratory rate 18 /min 18 /min eCW1 ([facility]) Body height 64 [in_i] 64 [in_i] eCW1 ([facility]) Body weight 229.4 [lb_av] 229.4 [lb_av] eCW1 ([facility]) Respiratory rate 18 /min 18 /min eCW1 ([facility]) Body mass index (BMI) [Ratio] 39.37 kg/m2 39.37 kg/m2 eCW1 ([facility]) Body temperature 97.9 [degF] 97.9 [degF] eCW1 ( [facility]) Systolic blood pressure 157 mm[Hg] 157 mm[Hg] e CW1 ([facility]) Heart rate 73 /min 73 /min eCW1 ([facility]) Diastolic blood pressure 81 mm[Hg] 81 mm[Hg] eCW1 ([facility]) Diastolic blood pressure 83 mm[Hg] 83 mm[Hg] MEDENT ([facility]) Heart rate 90 /min 90 /min [facility] ([facility]) Body mass index (BMI) [Ratio] 39.5 kg/m2 39.5 k g/m2 MEDENT ([facility]) Body weight 104.328 kg 104.328 kg [facility] ([facility]) Body temperature 97.7 [degF] 97.7 [degF] MEDENT ([facility]) Body height 64 [in_i] 64 [in_i] [facility]ENT ([facility]) 5'4" Body weight 230.00 [lb_av] 230.00 [lb_av] MEDEN T ([facility]) Systolic blood pressure 135 mm[Hg] 135 mm[Hg] M EDENT ([facility]) Body height 63 [in_i] 63 [in_i] MEDENT ([facility] 5'3" Body weight 229.00 [lb_av] 229.00 [lb_av] MEDEN T ([facility] Body mass index (BMI) [Ratio] 40.6 kg/m2 40.6 k g/m2 MEDENT ([facility] Heart rate 57 /min 57 /min MEDENT ([facility] Systolic blood pressure--sitting 135 mm[Hg] 135 mm[Hg] MEDENT ([facility] CBP, large cuff/Ra Diastolic blood pressure--sitting 75 mm[Hg] 75 mm[Hg] MEDENT ([facility]) CBP, large cuff/Ra Diastolic blood pressure 68 mm[Hg] 68 mm[Hg] MEDENT ([facility] Body mass index (BMI) [Ratio] 40.6 kg/m2 40.6 k g/m2 MEDENT ([facility] Body surface area Derived from formula 2.05 m2 2.05 m2 MEDENT ([facility] Heart rate 78 /min 78 /min MEDENT ([facility] Body weight 229.00 [lb_av] 229.00 [lb_av] MEDEN T ([facility] Body height 63 [in_i] 63 [in_i] MEDENT ([facility] 5'3" Systolic blood pressure 110 mm[Hg] 110 mm[Hg] M EDENT ([facility]) Body temperature 96.0 [degF] 96.0 [degF] eCW1 ( [facility]) Body weight 230.4 [lb_av] 230.4 [lb_av] eCW1 ([facility]) Systolic blood pressure 123 mm[Hg] 123 mm[Hg] e CW1 ([facility]) Body height 64 [in_i] 64 [in_i] eCW1 ([facility]) Body mass index (BMI) [Ratio] 39.54 kg/m2 39.54 kg/m2 eCW1 ([facility]) Heart rate 75 /min 75 /min eCW1 ([facility]) Respiratory rate 18 /min 18 /min eCW1 ([facility]) Diastolic blood pressure 77 mm[Hg] 77 mm[Hg] eCW1 ([facility]) Body height 64 [in_i] 64 [in_i] MEDENT (Thai Shay MD) 5'4" Body weight 229.38 [lb_av] 229.38 [lb_av] MEDEN T (Thai Shay MD) Body mass index (BMI) [Ratio] 39.4 kg/m2 39.4 k g/m2 MEDENT (Thai Shay MD) Body temperature 97.5 [degF] 97.5 [degF] MEDENT (Thai Shay MD) Systolic blood pressure 158 mm[Hg] 158 mm[Hg] M EDENT (Thai Shay MD) Diastolic blood pressure 92 mm[Hg] 92 mm[Hg] MEDENT (Thai Shay MD) Heart rate 78 /min 78 /min MEDENT (Thai Shay MD) Oxygen saturation in Arterial blood by Pulse oximetry 97 % 97 % MEDENT (Thai Shay MD) Body weight 232.4 [lb_av] 232.4 [lb_av] eCW1 ([facility]) Body height 64 [in_i] 64 [in_i] eCW1 ([facility]) Body mass index (BMI) [Ratio] 39.89 kg/m2 39.89 kg/m2 eCW1 ([facility]) Heart rate 58 /min 58 /min eCW1 ([facility]) Respiratory rate 18 /min 18 /min eCW1 ([facility]) Body temperature 97.5 [degF] 97.5 [degF] eCW1 ( [facility]) Systolic blood pressure 162 mm[Hg] 162 mm[Hg] e CW1 ([facility]) Diastolic blood pressure 79 mm[Hg] 79 mm[Hg] eCW1 ([facility]) ID Date Data Source [id number] 11/08/2020 07:51:33 AM [facility] Name Value Range Interpretation Code Description Data Source(s) TRANSFER FROM [facility] Patient Treatment Plan of Care Planned Activity Planned Date Details Description Data Source (s) Amoxicillin 500 MG Oral Capsule 01/24/2021 12:00:00 AM EDT [facility] clopidogrel 75 MG Oral Tablet 01/24/2021 12:00:00 AM EDT [facility] Aspirin 81 MG Delayed Release Oral Tablet 01/24/2021 12:00:00 AM ED T [facility] clopidogrel 75 MG Oral Tablet [facility] Aspirin 81 MG Delayed Release Oral Tablet [facility]
--- OUTSIDE RECORDS SUMMARY | 2021-09-16 10:19 | CCD ---
Author Author [facility] Organization [facility] Address Unknown Phone Unavailable Support Name Relationship Address Phone MICHELLE BARROW Next Of Kin [phone] [place] [address] MORAIMA BARROW Next Of [address] [place] [address] [employer] Next Of [place] [address] [place] [address] CITLALI BARROW Next Of Kin [address] [place] [address] [employer] Next Of Kin [address] [place] [address] [facility] Next Of Kin [address] [place] [address] ROMI VASQUEZ Next Of Kin [address] [facility] [place] [address] [facility] [place] [address] LAURA WILSON Next Of Kin [address] [place] [address] REZA SPARKS Next Of Kin [address] [place] [address] DISABLED Next Of Kin Unknown Unavailable DANN DIA Next Of Kin [address] [facility] [address] [place] [address] AAFES Next Of Kin [id number] [place] [address] FERNIE FERNANDES Next Of Kin [address] [place] [address] FERNIE FERNANDES Next Of Kin [address] [place] [address] CITLALI BARROW ECON [address] [address] Tommy [facility] [place] [address] Aniket Dia ECON [address] [place] [address] [phone] Dann Dia ECON [address] [place] [address] Unavailable Dann Dia ECON [address] [place] [address] Care Team Providers Care Qa Specialist Name Role Phone Mariana Armendariz MD Unavailable [...] Mariana Armendariz MD Unavailable Unavailable SCIARRINO, JOHNIE AWNING ASSEMBLER Unavailable Unavailable SCIARRINO, JOHNIE AWNING ASSEMBLER Unavailable Unavailable SCIARRINO, JOHNIE AWNING ASSEMBLER Unavailable Unavailable SCIARRINO, JOHNIE AWNING ASSEMBLER Unavailable Unavailable SCIARRINO, JOHNIE AWNING ASSEMBLER Unavailable Unavailable SCIARRINO, JOHNIE AWNING ASSEMBLER Unavailable Unavailable SCIARRINO, JOHNIE AWNING ASSEMBLER Unavailable Unavailable SCIARRINO, JOHNIE AWNING ASSEMBLER Unavailable Unavailable SCIARRINO, JOHNIE AWNING ASSEMBLER Unavailable Unavailable SCIARRINO, JOHNIE AWNING ASSEMBLER Unavailable Unavailable SCIARRINO, JOHNIE AWNING ASSEMBLER Unavailable Unavailable SCIARRINO, JOHNIE AWNING ASSEMBLER Unavailable Unavailable SCIARRINO, JOHNIE AWNING ASSEMBLER Unavailable Unavailable SCIARRINO, JOHNIE AWNING ASSEMBLER Unavailable Unavailable SCIARRINO, JOHNIE AWNING ASSEMBLER Unavailable Unavailable SCIARRINO, JOHNIE AWNING ASSEMBLER Unavailable Unavailable SCIARRINO, JOHNIE AWNING ASSEMBLER Unavailable Unavailable SCIARRINO, JOHNIE AWNING ASSEMBLER Unavailable Unavailable SCIARRINO, JOHNIE AWNING ASSEMBLER Unavailable Unavailable SCIARRINO, JOHNIE AWNING ASSEMBLER Unavailable Unavailable SCIARRINO, JOHNIE AWNING ASSEMBLER Unavailable Unavailable SCIARRINO, JOHNIE AWNING ASSEMBLER Unavailable Unavailable SCIARRINO, JOHNIE AWNING ASSEMBLER Unavailable Unavailable SCIARRINO, JOHNIE AWNING ASSEMBLER Unavailable Unavailable SCIARRINO, JOHNIE AWNING ASSEMBLER Unavailable Unavailable SCIARRINO, JOHNIE AWNING ASSEMBLER Unavailable Unavailable SCIARRINO, JOHNIE AWNING ASSEMBLER Unavailable Unavailable ROSAM ARIA [id number], E AYDE [id number] Unavailable Unavailab le ROSA MARIA [id number], E AYDE [id number] Unavailable Unavailab le ROSA MARIA [id number], E AYDE [id number] Unavailable Unavailab le KIRSCHMAN, L KAITLIN GANG SUPERVISOR Unavailable Unavailable KIRSCHMAN, L KAITLIN GANG SUPERVISOR Unavailable Unavailable KIRSCHMAN, L KAITLIN GANG SUPERVISOR Unavailable Unavailable KIRSCHMAN, L KAITLIN GANG SUPERVISOR Unavailable Unavailable KIRSCHMAN, L KAITLIN GANG SUPERVISOR Unavailable Unavailable KIRSCHMAN, L KAITLIN GANG SUPERVISOR Unavailable Unavailable KIRSCHMAN, L KAITLIN GANG SUPERVISOR Unavailable Unavailable KIRSCHMAN, L KAITLIN GANG SUPERVISOR Unavailable Unavailable KIRSCHMAN, L KAITLIN GANG SUPERVISOR Unavailable Unavailable KIRSCHMAN, L KAITLIN GANG SUPERVISOR Unavailable Unavailable KIRSCHMAN, L KAITLIN GANG SUPERVISOR Unavailable Unavailable KIRSCHMAN, L KAITLIN GANG SUPERVISOR Unavailable Unavailable KIRSCHMAN, L KAITLIN GANG SUPERVISOR Unavailable Unavailable KIRSCHMAN, L KAITLIN GANG SUPERVISOR Unavailable Unavailable KIRSCHMAN, L KAITLIN GANG SUPERVISOR Unavailable Unavailable KIRSCHMAN, L KAITLIN GANG SUPERVISOR Unavailable Unavailable KIRSCHMAN, L KAITLIN GANG SUPERVISOR Unavailable Unavailable KIRSCHMAN, L KAITLIN GANG SUPERVISOR Unavailable Unavailable KIRSCHMAN, L KAITLIN GANG SUPERVISOR Unavailable Unavailable KIRSCHMAN, L KAITLIN GANG SUPERVISOR Unavailable Unavailable KIRSCHMAN, L KAITLIN GANG SUPERVISOR Unavailable Unavailable KIRSCHMAN, L KAITLIN GANG SUPERVISOR Unavailable Unavailable KIRSCHMAN, L KAITLIN GANG SUPERVISOR Unavailable Unavailable KIRSCHMAN, L KAITLIN GANG SUPERVISOR Unavailable Unavailable KIRSCHMAN, L KAITLIN GANG SUPERVISOR Unavailable Unavailable KIRSCHMAN, L KAITLIN GANG SUPERVISOR Unavailable Unavailable KIRSCHMAN, L KAITLIN GANG SUPERVISOR Unavailable Unavailable KIRSCHMAN, L KAITLIN GANG SUPERVISOR Unavailable Unavailable KIRSCHMAN, L KAITLIN GANG SUPERVISOR Unavailable Unavailable KIRSCHMAN, L KAITLIN GANG SUPERVISOR Unavailable Unavailable KIRSCHMAN, L KAITLIN GANG SUPERVISOR Unavailable Unavailable KIRSCHMAN, L KAITLIN GANG SUPERVISOR Unavailable Unavailable KIRSCHMAN, L KAITLIN GANG SUPERVISOR Unavailable Unavailable KIRSCHMAN, L KAITLIN GANG SUPERVISOR Unavailable Unavailable KIRSCHMAN, L KAITLIN GANG SUPERVISOR Unavailable Unavailable KIRSCHMAN, L KAITLIN GANG SUPERVISOR Unavailable Unavailable KIRSCHMAN, L KAITLIN GANG SUPERVISOR Unavailable Unavailable KIRSCHMAN, L KAITLIN GANG SUPERVISOR Unavailable Unavailable KIRSCHMAN, L KAITLIN GANG SUPERVISOR Unavailable Unavailable KIRSCHMAN, L KAITLIN GANG SUPERVISOR Unavailable Unavailable KIRSCHMAN, L KAITLIN GANG SUPERVISOR Unavailable Unavailable KIRSCHMAN, L KAITLIN GANG SUPERVISOR Unavailable Unavailable KIRSCHMAN, L KAITLIN GANG SUPERVISOR Unavailable Unavailable KIRSCHMAN, L KAITLIN GANG SUPERVISOR Unavailable Unavailable KIRSCHMAN, L KAITLIN GANG SUPERVISOR Unavailable Unavailable KIRSCHMAN, L KAITLIN GANG SUPERVISOR Unavailable Unavailable KIRSCHMAN, L KAITLIN GANG SUPERVISOR Unavailable Unavailable TONEY BEDOYA MD Unavailable Unavailable [...] Unavailable Mariana FRANKS MD Unavailable Unavailable Mariana FRNAKS MD Unavailable Unavailable Mariana FRANKS MD Unavailable [...] is protected by Article 27-F of the [place] Public Health law. If you continue you may have access to information: Regarding HIV / AIDS; Provided by facilities licensed or operated by the [facility] [place] Office of Mental Health; or Provided by the [facility] Office for People With Developmental Disabilities. If such information is present, then the following [facility] mandated warning applies: This information has been [...] law may result in a fine or [place] health care facility sentence or both. A general authorization for the release of medical or other information is NOT sufficient authorization for further disc losure. Allergies and Adverse Reactions Type Description Substance Reaction Status Data Source(s ) Propensity to adverse reactions NO KNOWN ALLERGIES NO KNOWN ALLERGIES [facility] Family History Family Member Name Family Member Gender Family Member Status Date o f Status Description Data Source(s) Unknown Male Problem MEDENT ([facility]) Encounters Encounter Providers Location Date Indications Data Source(s ) Outpatient Attender: IRVIN OBRIEN [facility] Office 08/11 08:00:00 AM EDT MEDENT ([facility] Outpatient [address] [facility] [id number] 08/30/2021 12:00:00 AM EDT [facility]CW1 [facility] Outpatient Attender: INEZ NOEL Main Office 08/28/2021 0 2:00:00 PM EDT MEDENT ([facility]) Office Visit Attender: VISHNU ESPINOSA MD Main Office 07/19/2021 02: 26:00 PM EDT MEDENT ([facility]) Outpatient Attender: IRVIN OBRIEN [facility] Office 06/11 08:00:00 AM EDT MEDENT ([facility] Outpatient [address] [facility] [id number] 07/06/2021 12:00:00 AM EDT eCW1 ([facility] [place]) Unknown [address] [facility] [id number] 07/05/2021 12:00:00 AM EDT eCW1 ([facility] [place]) (BC Biopsy) Breast Center Biopsy [address] [place] [address] 07/04/2021 12:00:00 AM EDT eCW1 ([facility] [place]) Office Visit Attender: VISHNU ESPINOSA MD Main Office 06/19/2021 10: 47:00 AM EDT MEDENT ([facility]) Unknown [address] [facility] [address] 06/11/2021 12:00:00 AM EDT eCW1 ([facility] [place]) Outpatient [address] [facility] [id number] 06/11/2021 12:00:00 AM EDT eCW1 ([facility]) Outpatient Attender: TONEY BEDOYA MD Main office - [facility] 06/05/2021 01:30:00 PM EDT MEDENT ([facility]) Unknown [address] [facility] [id number] 06/05/2021 12:00:00 AM EDT eCW1 [facility] Outpatient [address] [facility] [id number] 05/31/2021 12:00:00 AM EDT eCW1 ([facility]) Outpatient [address] [facility] [id number] 05/29/2021 12:00:00 AM EDT eCW1 ([facility]) Office Visit Attender: VISHNU ESPINOSA MD Main Office 05/24/2021 05: 53:00 PM EDT MEDENT ([facility]) Unknown [address] [facility] [id number] 05/22/2021 12:00:00 AM EDT eCW1 ([facility]) (PN Proc 45) Pain Procedure 45 [address] [place] [address] 05/17/2021 12:00:00 AM EDT eCW1 ([facility] [place]) Unknown [address] [facility] [address] 05/16/2021 12:00:00 AM EDT eCW1 ([facility]) Outpatient Attender: IRVIN OBRIEN [facility] Office 04/11 08:00:00 AM EDT MEDENT ([facility] Outpatient Attender: TONEY BEDOYA MD Main office - [facility] 05/01/2021 03:30:00 PM EDT MEDENT ([facility]) Outpatient Attender: JOHNIE GONZALES [facility] 04/26/2021 10:30:00 AM EDT MEDENT ([facility]) [place] [address] [facility] [address] 04/19/2021 12:00:00 AM EDT eCW1 ([facility]) Office Visit, New Pt., Level 4 PC [address] [place] [address] 04/19/2021 12:00:00 AM EDT eCW1 ([facility]) Office Visit Attender: VISHNU ESPINOSA MD Main Office 04/18/2021 02: 28:00 PM EDT MEDENT ([facility]) Outpatient [address] [facility] [address] 04/17/2021 12:00:00 AM EDT eCW1 ([facility]) Outpatient Attender: IRVIN OBRIEN [facility] Office 02/09 08:30:00 AM EDT MEDENT ([facility] Outpatient Attender: TONEY BEDOYA MD Main office - [facility] 01/29/2021 03:30:00 PM EDT MEDENT ([facility]) Outpatient Attender: GISELA FRANKS MDAdmitter: GISELA MORELAND MD [id number] 01/24/2021 09:14:00 AM EDT - 01/24/2021 07:30:00 PM EDT [facility] Patient discharged. Outpatient Attender: KAITLIN ATKINS [facility] 01:00:00 PM EST MEDENT ([facility]ai [facility]) Outpatient [address] [facility] [address] 01/08/2021 12:00:00 AM EST eCW1 ([facility]) Office Visit Attender: TONEY BEDOYA MD Main office - [facility] 12/28/2020 08:15:00 AM EST MEDENT ([facility]) (PN Proc 60) Pain Procedure 60 [address] [place] [address] 12/13/2020 12:00:00 AM EST eCW1 ([facility]) Unknown [address] [facility] [address] 12/13/2020 12:00:00 AM EST eCW1 ([facility]) Outpatient Attender: Claudio Armendariz MD Main Office 12/07/2020 01:45:00 PM EST MEDENT ([facility]) Outpatient Attender: VISHNU ESPINOSA MD Main Office 12/05/2020 09:30:00 AM EST MEDENT ([facility]) Outpatient Attender: GISELA FRANKS MD [facility] 11/28/2020 02:30:00 PM EST MEDENT ([facility]) Outpatient Attender: TONEY BEDOYA MD Main office - [facility] 11/27/2020 02:15:00 PM EST [facility] ([facility] ) [place] [address] [facility] [address] 11/20/2020 12:00:00 AM EST eCW1 ([facility]) Outpatient [address] [facility] [address] 11/17/2020 12:00:00 AM EST eCW1 ([facility]) Outpatient Attender: KAITLIN ATKINS [facility] 01:30:00 PM EST MEDENT ([facility]) Outpatient Attender: AYDE CRANE [id number] 01/05/2020 08:58:25 PM [facility] Outpatient 11/04/2020 08:05:00 PM EST S troke; right sided facial droop with dyarthria and right tongue deviation. [facility] Stroke; right sided facial droop with dy arthria and right tongue deviation. Outpatient Attender: AYDE CRANE [id number] 11/04/2020 12:00 :00 AM [facility] Outpatient Attender: VIJAY SOTO [facility] 10/26/2020 11:00:00 AM EST MEDENT ([facility]) Office Visit Attender: TONEY BEDOYA MD Main office - [facility] 10/03/2020 02:30:00 PM EST MEDENT ([facility] Outpatient Attender: KAITLIN ATKINS Medical Building 02:00:00 PM EDT MEDENT ([facility]) (PN Proc 60) Pain Procedure 60 [address] [place] [address] 08/15/2020 12:00:00 AM EDT eCW1 ([facility]) Outpatient Attender: TONEY BEDOYA MD Main office - [facility] 08/03/2020 03:30:00 PM EDT MEDENT ([facility]) Immunizations Vaccine Date Status Description Data Source(s) COVID-19 VACCINE Pfizer 08/20/2021 12:00:00 AM EDT completed [employer] Vaccine Series Complete: YESThis Data wa s Submitted to [facility] Via [employer]. COVID-19 dose #2 given elsewhere Unspecified 05/29/2021 08:1 0:00 AM EDT completed eCW1 ([facility]) COVID-19 dose #2 given elsewhere Unspecified 05/29/2021 08:1 0:00 AM EDT completed eCW1 ([facility]) COVID-19 dose #2 given elsewhere Unspecified 05/29/2021 08:1 0:00 AM EDT completed eCW1 ([facility]) COVID-19 dose #2 given elsewhere Unspecified 05/29/2021 08:1 0:00 AM EDT completed eCW1 ([facility]) COVID-19 dose #2 given elsewhere Unspecified 05/29/2021 08:1 0:00 AM EDT completed eCW1 ([facility]) COVID-19 dose #2 given elsewhere Unspecified 05/29/2021 08:1 0:00 AM EDT completed eCW1 ([facility]) COVID-19 dose #2 given elsewhere Unspecified 05/29/2021 08:1 0:00 AM EDT completed eCW1 ([facility]) COVID-19 dose #2 given elsewhere Unspecified 05/29/2021 08:1 0:00 AM EDT completed eCW1 ([facility]) COVID-19 dose #2 given elsewhere Unspecified 05/29/2021 08:1 0:00 AM EDT completed eCW1 ([facility]) COVID-19 dose #1 given elsewhere Unspecified 05/29/2021 08:0 9:00 AM EDT completed eCW1 ([facility]) COVID-19 dose #1 given elsewhere Unspecified 05/29/2021 08:0 9:00 AM EDT completed eCW1 ([facility]) COVID-19 dose #1 given elsewhere Unspecified 05/29/2021 08:0 9:00 AM EDT completed eCW1 ([facility]) COVID-19 dose #1 given elsewhere Unspecified 05/29/2021 08:0 9:00 AM EDT completed eCW1 ([facility]) COVID-19 dose #1 given elsewhere Unspecified 05/29/2021 08:0 9:00 AM EDT completed eCW1 ([facility]) COVID-19 dose #1 given elsewhere Unspecified 05/29/2021 08:0 9:00 AM EDT completed eCW1 ([facility]) COVID-19 dose #1 given elsewhere Unspecified 05/29/2021 08:0 9:00 AM EDT completed eCW1 ([facility]) COVID-19 dose #1 given elsewhere Unspecified 05/29/2021 08:0 9:00 AM EDT completed eCW1 ([facility]) COVID-19 dose #1 given elsewhere Unspecified 05/29/2021 08:0 9:00 AM EDT completed eCW1 ([facility]) COVID-19 VACCINE Pfizer 02/18/2021 12:00:00 AM EDT completed [facility] Vaccine Series Complete: YESThis Data wa s Submitted to [facility] Via [employer]. COVID-19 VACCINE Pfizer 01/28/2021 12:00:00 AM EDT completed [facility] Vaccine Series Complete: NOThis Data was Submitted to [facility] Via [employer]. This CVX code allows reporting of a vacc ination when formulation is unknown (for example, when recording a Influenza vaccination when noted on a vaccination card) 08/10/2020 10:25:00 AM EDT completed MEDEN T ([facility]) Medications Medication Brand Name Start Date Product Form Dose Route Admi nistrative Instructions Pharmacy Instructions Status Indications Reaction Description Data Source(s) Diclofenac Sodium 0.01 MG/MG Topical Gel Diclofenac Sodium 09/07/2021 12:00:00 AM EDT active MEDENT ([facility] Nitroglycerin 0.4 MG Sublingual Tablet Nitroglycerin 12:00:00 AM EDT SUBLINGUAL active MEDEN T ([facility]) clopidogrel 75 MG Oral Tablet [Plavix] Plavix 05/23/2021 12:00:00 AM EDT ORAL completed [facility] ([facility] Amoxicillin 500 MG Oral Capsule Amoxicillin 04/12/2021 12:00:00 AM EDT ORAL active MEDENT ([facility]) Trintellix Trintellix 04/12/2021 12:00:00 AM EDT ORAL a ctive MEDENT ([facility]) Covid-19 vaccine, Unspecified 02/18/2021 12:00:00 AM EDT completed MEDENT ([facility]) Medication administered onsite Covid-19 vaccine, Unspecified 01/28/2021 12:00:00 AM EDT completed MEDENT ([facility]) Medication administered onsite Aspirin 325 MG Oral Tablet aspirin tablet 325 mg aspirin tab let 325 mg 01/25/2021 09:00:00 AM EDT 325 mg Oral active 325 mg, Oral, Once, [place] 01/25/21 at 0900, For 1 dose, Post-op [facility] Medication administered onsite clopidogrel 75 MG Oral Tablet clopidogrel (PLAVIX) tab let 75 mg clopidogrel (PLAVIX) tablet 75 mg 01/25/2021 09:00:00 AM EDT 75 mg Oral active 75 mg, Oral, Daily, First dose on [place] 01/25/21 at 0900, Post-op [facility] Medication administered onsite cefazolin (ANCEF) injection 2 g 01/24/2021 02:00:00 PM EDT 2 g completed Perioperative Pharmacoprophylaxis 2 g, I ntravenous Push, Administer over 6 Minutes, Once, Fri01/24/21 at 1400, For 1 dose
Prior to Discharge RN may administer IV push or infuse this medication through syringe adapter set ref [id number]. Flush line after use
[facility] Perioperative Pharmacoprophylaxis Medication administered onsite sodium chloride 0.9% (NS) infusion 9596-2573-50 01/24/2021 01:00:00 P M EDT Intravenous active at 75 mL/hr, Intravenous, Continuous, Starting Fri01/24/21 at 1300, For 6 days, Post-op [facility] Medication administered onsite 10 ML Atropine [...] or 0.04 mg/kg. Max of 6 doses
[facility] Medication administered onsite Acetaminophen 325 MG Oral Tablet acetaminophen (TYLENO L) 325 MG tablet 650 mg acetaminophen (TYLENOL) 325 MG tablet 650 mg 01/24/2021 12:18:12 PM EDT 650 mg Oral active 650 mg, Or al, Every 4 hours PRN, mild pain (1-3), headaches, Starting Fri01/24/21 at 1218, Post-op
"Maximum dose of acetaminophen is 4,000 mg from all sources in 24 hours."
[facility] Medication administered onsite 1 ML heparin sodium, porcine 1000 UNT/ML Injection hep kelly (porcine) injection heparin (porcine) injection 01/24/2021 11:34:53 AM EDT active As needed, Starting Fri01/24/21 at 1134, Intra-Procedure [facility] Medication administered onsite lidocaine 1 % injection [id number] 01/24/2021 11:18:34 AM EDT active As needed, Starting Fri01/24/21 at 1118, Intra-Procedure [facility] Medication administered onsite fentaNYL Citrate (PF) (SUBLIMAZE) injection [id number] 01/24/2021 11:18:12 AM EDT active As neede d, Starting Fri01/24/21 at 1118, Intra-Procedure [facility] Medication administered onsite 2 ML Midazolam 1 MG/ML Injection midazolam (VERSED) in jection midazolam (VERSED) injection 01/24/2021 11:18:03 AM EDT active As needed, Starting Fri01/24/21 at 1118, Intra-Procedure [facility] Medication administered onsite cefazolin (ANCEF) injection 2 g 01/24/2021 11:00:00 AM EDT 2 g Intravenous completed Perioperative Pharmacoprophylaxis 2 g, Intravenous, 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
RN may administer IV push or infuse this medication through syringe adapter set ref [id number]. Flush line after use
[facility] Perioperative Pharmacoprophylaxis Medication administered onsite sodium chloride 0.9% (NS) infusion 4281-7708-39 01/24/2021 11:00:00 AM EDT 150 mL/h Intravenous active at 150 m L/hr, 150 mL/hr, Intravenous, Continuous, Starting Fri01/24/21 at 1100, Pre-op
Start on admission
[facility] Medication administered onsite Aspirin 325 MG Oral Tablet aspirin tablet 325 mg aspirin tab let 325 mg 01/24/2021 11:00:00 AM EDT 325 mg Oral completed 325 mg, Oral, Once, 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, Pre-op [facility] Medication administered onsite Acetaminophen 325 MG Oral Tablet acetaminophen (TYLENO L) 325 MG tablet 650 mg acetaminophen (TYLENOL) 325 MG tablet 650 mg 01/24/2021 10:12:42 AM EDT 650 mg Oral active 650 mg, Or al, Every 4 hours PRN, mild pain (1-3), headaches, Starting Fri01/24/21 at 1012, Pre-op
"Maximum dose of acetaminophen is 4,000 mg from all sources in 24 hours."
[facility] Medication administered onsite normal saline flush 0.9 % injection 3 mL [id number] 01/24/2021 10:00:00 AM EDT 3 mL Intravenous active 3 mL , Intravenous, Every 8 hours (scheduled), First dose on Fri01/24/21 at 1000, Pre-op
Rapid push positive pressure flushing shall be performed with a 10 cc normal saline syringe to check the PATENCY of a PIV site prior to any infusion therapy initiation unless resistance is met.
[facility] Medication administered onsite sodium chloride 0.9% (NS) infusion [id number] 01/24/2021 10:00:00 AM EDT 100 mL/h Intravenous active at 100 m L/hr, 100 mL/hr, Intravenous, Continuous, Starting Fri01/24/21 at 1000, Pre-op [facility] Medication administered onsite Aspirin 81 MG Delayed Release Oral Tablet aspirin EC 8 1 MG EC tablet aspirin EC 81 MG EC tablet 01/24/2021 12:00:00 AM EDT 81 mg Oral ac tive Take 1 tablet (81 mg total) by mouth daily [facility] clopidogrel 75 MG Oral Tablet clopidogrel (PLAVIX) 75 MG tablet clopidogrel (PLAVIX) 75 MG tablet 01/24/2021 12:00:00 AM EDT 75 mg Oral active Take 1 tablet (75 mg total) by mouth daily Take 2 on 01/21, then 1 each day including DOP [facility] Amoxicillin 500 MG Oral Capsule amoxicillin (AMOXIL) 5 00 MG capsule amoxicillin (AMOXIL) 500 MG capsule 01/24/2021 12:00:00 AM EDT 2000 mg Oral active Take 4 capsules (2,000 mg total) by mout h once for 1 dose Take two hours before dental procedure [facility] [facility] clopidogrel 75 MG Oral Tablet [Plavix] Plavix 01/03/2021 12:00:00 A M EST active MED[facility] ([facility] Sutab Sutab 12/07/2020 12:00:00 AM EST active [facility] ([facility]) gabapentin 300 MG Oral Capsule Gabapentin 12/04/2020 12:00:00 AM EST ORAL active [facility] ([facility]) Omeprazole 40 MG Delayed Release Oral Capsule Omeprazole 12/04/2020 12:00:00 AM EST ORAL active [facility] ([facility]) Cholecalciferol 1000 UNT Oral Tablet Vitamin D 12/04/2020 12:00:00 A M EST ORAL active [facility] ([facility]) Multivitamin Adult 12/04/2020 12:00:00 AM EST ORAL active [facility] ([facility]) vilazodone hydrochloride 40 MG Oral Tablet [Viibryd] Viibryd 12/04/2020 12:00:00 AM EST ORAL active [facility] ([facility]) Aspirin 81 MG Delayed Release Oral Tablet Aspirin 12/04/2020 1 2:00:00 AM EST ORAL active [facility] ([facility]) Rosuvastatin calcium 40 MG Oral Tablet [Crestor] Crestor 12/04/2020 12:00:00 AM EST ORAL active [facility] ([facility]) buspirone hydrochloride 10 MG Oral Tablet Buspirone HCL 12/04/2020 12:00:00 AM EST ORAL active [facility] ([facility]) Lisinopril 10 MG Oral Tablet Lisinopril 12/04/2020 12:00:00 AM EST ORAL active [facility] ([facility]) Levofloxacin 500 MG Oral Tablet Levofloxacin 11/25/2020 12:00:00 AM EST completed MED[facility] ([facility]) Aspirin 81 MG Delayed Release Oral Tablet aspirin EC 8 1 MG EC tablet aspirin EC 81 MG EC tablet 81 mg Oral aborted Take 81 mg by mouth daily [facility] clopidogrel 75 MG Oral Tablet clopidogrel (PLAVIX) 75 MG tablet clopidogrel (PLAVIX) 75 MG tablet 75 mg Oral aborted Take 75 mg by mouth daily Take 2 on 01/21, then 1 each day including DOP [facility] Insurance Providers Payer name Policy type / Coverage type Policy ID Covered libertarian ID Covered libertarian's relationship to schroeder Policy Schroeder Plan Information MEDICARE [id number] xxxxxxxxxxx [id number] MEDICARE [id number] SP [id number] A MEDICARE [id number] Robina [id number] F92 MEDICARE [id number] SP [id number] MEDICARE A [id number] Self [id number] [id number] MEDICARE A [id number] Self [id number] [place] [id number] Self [id number] [place] Primary [id number] Self [id number] [place] Primary [id number] Self [id number] [place] Primary [id number] Self [id number] MEDICAID M [id number] Self [id number] MEDICARE A [id number] Self [id number] A Medicaid [place] Medig[place] Part B [id number] Self [id number] [employer] [place] [employer] [id number] Self Medicaid [facility] S D [id number] SELF [id number] Medicare C [id number] SELF [id number] A DME Jurisdiction A NHIC C [id number] SELF [id number] [place] [id number] SP [id number] B [place] [id number] SP [id number] MEDICAID [id number] SP [id number] MEDICAID [id number] SP [id number] Medicaid [place] Med[place] Part B [id number] Self [id number] MEDICAID [id number] Robina [id number] MEDICAID [id number] xxxxxxxx [id number] ANSI-Medicaid [id number] [facility] [id number] Medicaid [facility] Part B [id number] Self [id number] [place] Primary [id number] Self [id number] ANSI-Medicare Part B [id number] ANSI-Medicaid [id number] MEDICARE [id number] A ANSI-Medicare Part B [id number] ANSI-Medicaid [id number] ANSI-Medicaid [id number] ANS-Medicare Part B [id number] ANSI-Medicaid [id number] ANSI-Medicare Part B [id number] MEDICARE C [id number] S [id number] A MEDICARE PART A -O/P [id number] 18 [id number] MEDICAID -O/P EMERGENCY ROOM [id number] 18 [id number] Medicaid [facility] Part B [id number] Self [id number] Medicare [place] Primary [id number] Self [id number] MEDICAID UNAVAILABLE [place] B[place] [id number] [place] Medicare [place] Medicare Primary [id number] Self Medicaid [facility] Part B [id number] Self Medicare [place]/NGS Medicare Primary [id number] Self MEDICARE -O/P [id number] 18 [id number] SELF PAY UNAVAILABLE SP [place] BLE [place] B [id number] Self Medicare [place] Medicare Primary [id number] Self CONTRACT CLAIMS UNK SP UNK CONTRACT CLAIMS [id number] SP CLM [id number] CONTRACT CLAIMS UNAVAILABLE SP UN AVAILABLE MEDICAID [id number] S [id number] [place] [id number] SP [id number] B MEDICARE OUTPATIENT M [id number] S [id number] MEDICARE [id number] SP [id number] F92 [place] [id number] SP [id number] MEDICARE C [id number] S [id number] [id number] MEDICAID M [id number] S [id number] [id number] SP [id number] OTHER WORKERS COMPENSATION [id number] SP [id number] MEDICAID [id number] SP [id number] ANSI-Medicaid [id number] ANSI-Medicare Part B [id number] Medicaid [place] Part B [id number] Self [id number] Medicare [place] Primary [id number] Self [id number] MEDICARE PART A -O/P [id number] 18 [id number] MEDICAID-O/P [id number] 18 [id number] MEDICAID [id number] S [id number] MEDICARE [id number] S [id number] F92 SELF PAY NONE S NONE ANSI-Medicare Part B [id number] ANSI-Medicaid [id number] ANSI-Medicare Part B [id number] ANSI-Medicaid [id number] ANSI-Medicaid [id number] ANSI-Medicare Part B [id number] ANSI-Medicare Part B [id number] Problems, Conditions, and Diagnoses Code Display Name Description Problem Type Effective Dates Data Source(s) Q21.1 Atrial septal defect Atrial septal defect Diagnosis 01/24/2021 09:14:00 AM EDT [facility] Stroke; right sided facial droop with dy arthria and right tongue deviation. Stroke; right sided facial droop with dyarthria and right tongue deviation. Diagnosis 11/04/2020 08:05:00 PM 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 Problem 2020 12:00:00 AM EDT MED[facility] ([facility]) 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 secundum type atrial septal defect Problem 04/26/2021 12:00:00 AM EDT MED[facility] ([facility]) I10 Essential hypertension Essential hypertension Problem 04/26/2021 12:00:00 AM EDT MED[facility] ([facility]) K90.9 [id number] Intestinal malabsorption, unspecified typ e Problem 04/19/2021 12:00:00 AM EDT eCW1 ([facility]) E78.2 742196009 Mixed hyperlipidemia Problem 04/19/2021 12:0 0:00 AM EDT eCW1 ([facility]) R20.2 [id number] Left leg paresthesias Problem 0 04/19/2021 12:00:00 AM EDT eCW1 ([facility]) G47.33 [id number] LAURITA (obstructive sleep apnea) Problem 04/19/2021 12:00:00 AM EDT eCW1 ([facility]) I10 [id number] Essential hypertension Problem 04/19/2021 12 :00:00 AM EDT eCW1 ([facility]) Z85.038 [id number] History of colon cancer Problem 04/19/2021 1 2:00:00 AM EDT eCW1 ([facility]) D50.9 47651202 Iron deficiency anemia, unspecif ied iron deficiency anemia type Problem 04/19/2021 12:00:00 AM EDT eCW1 ([facility]) E55.9 Vitamin D deficiency Vitamin D deficiency Problem 04/19/2021 12:00:00 AM EDT eCW1 ([facility]) F41.8 427665953 Depression with anxiety Problem 04/19/2021 1 2:00:00 AM EDT eCW1 ([facility]) G62.9 [id number] Neuropathy Problem 04/19/2021 12:00:00 AM ED T eCW1 ([facility]) M21.6x2 Pronation Pronation Problem 03/11/2021 12:00:00 AM ED T [facility] ([facility] M21.6x1 Pronation Pronation Problem 03/11/2021 12:00:00 AM ED T [facility] ([facility] S92.334D Closed fracture of third metatarsal bone Closed fracture of third metatarsal bone Problem 03/11/2021 12:00:00 AM EDT [facility] ([facility] R60.0 Edema Edema Problem 12/05/2020 12:00:00 AM ES T MED[facility] ([facility]) R00.2 Palpitations Palpitations Problem 12/05/2020 12:00:00 A M EST [facility] ([facility]) E78.2 Mixed hyperlipidemia Mixed hyperlipidemia Problem 12/05/2020 12:00:00 AM EST [facility] ([facility]) Z71.3 Dietary management surveillance Dietary management sagrario veillance Problem 12/05/2020 12:00:00 AM EST [facility] ([facility]) E66.01 Morbid obesity Morbid obesity Problem 12/05/2020 12:00: 00 AM EST [facility] ([facility]) E78.00 Pure hypercholesterolemia Pure hypercholesterolemia Pr oblem 12/05/2020 12:00:00 AM EST [facility] ([facility]) I10 Essential hypertension Essential hypertension Problem 12/05/2020 12:00:00 AM EST [facility] ([facility]) I63.9 Cerebral artery occlusion Cerebral artery occlusion Pr oblem 12/05/2020 12:00:00 AM EST [facility] ([facility]) 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 secundum type atrial septal defect Problem 12/05/2020 12:00:00 AM EST [facility] ([facility]) Surgeries/Procedures Procedure Description Date Indications Data Source(s) OFFICE OUTPATIENT VISIT 10 MINUTES 09/07/2021 12:00:00 AM EDT [facility] ([facility] ECG ROUTINE ECG W/LEAST 12 LDS W/I&R 08/28/2021 12:00: 00 AM EDT MED[facility] ([facility]) OFFICE OUTPATIENT VISIT 25 MINUTES 08/28/2021 12:00:00 AM EDT MED[facility] ([facility]) Chronic Care MGMT 20 Mins Clinical Staff Time Per Calendar [facility] 07/19/2021 12:00:00 AM EDT [facility] ([facility]) OFFICE OUTPATIENT VISIT 10 MINUTES 07/06/2021 12:00:00 AM EDT [facility] ([facility] Chronic Care Management Services Ea Addl 20 Min 2020 12:00:00 AM EDT MED[facility] ([facility]) Chronic Care MGMT 20 Mins Clinical Staff Time Per Calendar M [facility] 06/19/2021 12:00:00 AM EDT [facility] ([facility]) OFFICE OUTPATIENT VISIT 25 MINUTES 06/05/2021 12:00:00 AM EDT MED[facility] ([facility] ) Pain Procedure Log 05/31/2021 12:00:00 AM EDT eCW1 ([facility]) Complex Chronic Care Management SVC 1St 60 Min 12:00:00 AM EDT MED[facility] ([facility]) Complex Chronic Care MGMT Service Ea Addl 30 Min 05/24 12:00:00 AM EDT [facility] ([facility]) Needle electromyography, each extremity, with related paraspinal areas, when performed, done with nerve conduction, amplitude and latency/velocity study; complete, five or more muscles studied, innervated by three or more nerves or four or more spinal levels (list separately in addition to the code for primary procedure). 05/15/2021 12:00:00 AM EDT MEDEN T ([facility], ) Needle electromyography, each extremity, with related paraspinal areas, when performed, done with nerve conduction, amplitude and latency/velocity study; complete, five or more muscles studied, innervated by three or more nerves or four or more spinal levels (list separately in addition to the code for primary procedure). 05/15/2021 12:00:00 AM EDT MEDEN T ([facility], ) Nerve Conduction 9-10 Studies 05/15/2021 12:00:00 AM E DT MEDENT ([facility] ) OFFICE OUTPATIENT VISIT 10 MINUTES 05/04/2021 12:00:00 AM EDT [facility] ([facility] MRI SPINAL CANAL LUMBAR W/O CONTRAST MATERIAL 05/02/20 21 12:00:00 AM EDT MED[facility] ([facility] ) MRI SPINAL CANAL LUMBAR W/O CONTRAST MATERIAL 05/02/20 12:00:00 AM EDT MED[facility] ([facility] ) OFFICE OUTPATIENT VISIT 25 MINUTES 05/01/2021 12:00:00 AM EDT MED[facility] ([facility] ) ECHO Complete, Congenital Cardiac Anomalies 04/26/2021 12:00:00 AM EDT MED[facility] ([facility]) Doppler Echocardiography Complete 04/26/2021 12:00:00 AM EDT MED[facility] ([facility]) Doppler Color Flow Velocity Mapping 04/26/2021 12:00:0 0 AM EDT MED[facility] ([facility]) OFFICE OUTPATIENT VISIT 25 MINUTES 04/26/2021 12:00:00 AM EDT MED[facility] ([facility]) Complex Chronic Care Management SVC 1St 60 Min 021 12:00:00 AM EDT MED[facility] ([facility]) Complex Chronic Care MGMT Service Ea Addl 30 Min 04/18 12:00:00 AM EDT [facility] ([facility]) Strapping Foot Or Ankle 03/08/2021 12:00:00 AM [...] 25 MINUTES 01/29/2021 12:00:00 AM EDT MED[facility] ([facility] ) INTRACARD ECHOCARD W/THER/DX IVNTJ INCL IMG S&I <td>EC HOCARDIOGRAM INTRACARDIAC</td><td>Routine</td><td>01/24/2021 11:57 AM EDT</td><td></td><td></td> 01/24/2021 03:57:41 PM EDT [facility] ECG ROUTINE ECG W/LEAST 12 LDS TRCG ONLY W/O I&R <td>E CG 12- LEAD</td><td>Routine</td><td>01/24/2021 9:39 AM EDT</td><td></td><td></td> 01/24/2021 01:39:31 PM EDT [facility] Percutaneous Transcatheter Closure, Atrial Septal Defect 01/24/2021 12:00:00 AM EDT MEDENT ([facility]) Intracardiac Echocardiography 01/24/2021 12:00:00 AM E DT MEDENT ([facility]) XTRNL PT ACTIVATED ECG RECORD MONITOR 30 DAYS 01/17/20 12:00:00 AM EST MED[facility] ([facility]) XTRNL PT ACTIVTD ECG DWNLD 30 DAYS PHYS R&I 01/16/2021 12:00:00 AM EST [facility] ([facility]) OFFICE OUTPATIENT VISIT 15 MINUTES 01/10/2021 12:00:00 AM EST MED[facility] (Thai Shay MD) PHYSICIAN TELEPHONE EVALUATION 11-20 MIN 12/28/2020 12 :00:00 AM EST MED[facility] ([facility] ) UPPER NDSC BIOPSY SINGLE/MULTIPLE [...] EST MEDENT ([facility] ) NON-INVASIVE PHYSIOLOGIC STUDY EXTREMITY 3 LEVLS 12/15 12:00:00 AM EST MED[facility] ([facility] ) TESTING AUTONOMIC NERVOUS SYSTEM FUNCTION 12/15/2020 1 2:00:00 AM EST [facility] ([facility]) Completion of procedural visit when meets criteria 12/13/2020 12:00:00 AM EST eCW1 ([facility]) Magnetic Resonance Angiogtaphy Head W/O Contrast Material(S) [...] 00 AM EST MED[facility] ([facility]) Arterial Pressure Waveform Analysis For Assessment Of Centra l Art 12/05/2020 12:00:00 AM EST [facility] ([facility]) OFFICE OUTPATIENT NEW 30 MINUTES 11/28/2020 12:00:00 A M EST MED[facility] ([facility]) OFFICE OUTPATIENT VISIT 40 MINUTES 11/27/2020 12:00:00 AM EST MED[facility] ([facility]) Needle electromyography, each extremity, [...] MEDEN T ([facility], ) 36555 Nerve conduction studies 7-8 studies 201208/07/2020 12:00:00 AM EDT MEDENT ([facility] ) Results ID Date Data Source [id number] 08/30/2021 12:41:00 PM EDT MEDENT ([facility]) Name Value Range Interpretation Code Description Data Rona rce(s) Supporting Document(s) Natriuretic peptide.B prohormone N-Terminal [Mass/volu me] in Serum or Plasma 21 pg/mL MED[facility] ([facility]) ID Date Data Source [id number] 08/30/2021 12:41:00 PM EDT [facility] Name Value Range Interpretation Code Description Data Rona rce(s) Supporting Document(s) Blood Urea Nitrogen 15 mg/dL 7-18 MED[facility] ([facility]) Glucose, Fasting 88 mg/dL 70-100 MED[facility] ([facility]) Glomerular Filtration Rate Laboratory test result MED[facility] ([facility]) <content>Units are mL/min/1.73 m2</content>
<content></content>
<content>Chronic Kidney Disease Staging per NKF:</content>
<content></content>
<content>Stage I & II GFR >=60 Normal to Mildly Decreased</content>
<content>Stage III GFR 30- 59 Moderately Decreased</content>
<content>Stage IV GFR 15-29 Severely Decreased</content>
<content>Stage V GFR <15 Very Little GFR Left</content>
<content>ESRD GFR <15 on JEWELLERY DESIGNER</content>
<content></content> Creatinine For GFR 0.77 mg/dL 0.55-1.30 MEDENT ([facility]) Chloride Level 107 meq/L 98-107 MED[facility] ([facility]) Sodium Level 140 meq/L 136-145 MED[facility] ([facility]) Potassium Serum 4.2 meq/L 3.5-5.1 MED[facility] ([facility]io [facility]) Carbon Dioxide Level 29 meq/L 21-32 MEDENT ([facility]) Anion Gap 4 meq/L 8-16 [facility] Calcium Level 9.0 mg/dL 8.8-10.2 MED[facility] ([facility]iol[facility] gy [facility]) Ast/Sgot 18 U/L 7-37 [facility] Alkaline Phosphatase 122 U/L 45-117 MED[facility] ([facility]) Alt/SGPT 26 U/L 12-78 MED[facility] ([facility]) Total Protein 7.1 GM/DL 6.4-8.2 MED[facility] ([facility]iolo gy [facility]) Albumin 3.9 GM/DL 3.2-5.2 [facility] ([facility] Bilirubin,Total 0.6 mg/dL 0.2-1.0 MED[facility] ([facility]io [facility]) Albumin/Globulin Ratio 1.2 1.2-2.2 MED[facility] ([facility]) ID Date Data Source [id number] 08/30/2021 12:41:00 PM EDT MEDENT ([facility]) Name Value Range Interpretation Code Description Data Rona rce(s) Supporting Document(s) White Blood Count 5.8 10 4.0-10.0 MED[facility] ([facility]) Hemoglobin 12.5 g/dL 12.0-15.5 MED[facility] ([facility]) Red Blood Count 4.37 10 4.00-5.40 MED[facility] ([facility]io [facility]) Mean Corpuscular Volume 88.1 fl 80.0-96.0 M EDENT ([facility]) Hematocrit 38.5 % 36.0-47.0 MED[facility] ([facility]) Mean Corpuscular Hemoglobin 28.6 pg 27.0-33.0 MED[facility] ([facility]) Red Cell Distribution Width 13.4 % 11.5-14.5 MED[facility] ([facility]) Mean Corpuscular HGB Conc 32.5 g/dL 32.0-36.5 MED[facility] ([facility]) Nucleated Red Blood Cell % 0.0 % 0-0 MED ENT ([facility]) Platelet Count, Automated 231 10 150-450 MED[facility] ([facility]) ID Date Data Source [id number] 08/09/2021 12:00:[address] [facility] Name Value Range Interpretation Code Description Data Rona rce(s) Supporting Document(s) SARS-CoV2 Rapid Antigen Negative [facility] This lab was ordered by [facility] and reported by Thai Shay MD. ID Date Data Source [id number] 06/28/2021 10:57:00 AM EDT MEDENT ([facility]) Name Value Range Interpretation Code Description Data Rona rce(s) Supporting Document(s) Albumin [Mass/volume] in Serum or Plasma 3.9 MED[facility] ([facility]) Calcium [Mass/volume] in Serum or Plasma 9.1 MED[facility] ([facility]) Alanine aminotransferase [Enzymatic activity/volume] in Serum or Pl asma 24 MED[facility] ([facility]) Carbon dioxide, total [Moles/volume] in Serum or Plasma 25 [facility] ([facility]) Chloride [Moles/volume] in Serum or Plasma 114 MED[facility] ([facility]) Potassium [Moles/volume] in Serum or Plasma 4.0 MED[facility] ([facility]) Alkaline phosphatase [Enzymatic activity/volume] in Serum or Plasma 1 18 MED[facility] ([facility]) Sodium 144 MED[facility] ([facility]) Aspartate aminotransferase [Enzymatic activity/volume] in Serum or Plasma 12 [facility] ([facility]) Protein [Mass/volume] in Serum or Plasma 6.9 MED[facility] ([facility]) Glucose 105 83-110 MED[facility] ([facility]) Urea nitrogen [Mass/volume] in Serum or Plasma 14 MED[facility] ([facility]) Creatinine For GFR 0.61 MED[facility] ([facility]) ID Date Data Source [id number] 06/28/2021 10:57:00 AM EDT MEDENT ([facility]i [facility]) Name Value Range Interpretation Code Description Data Rona rce(s) Supporting Document(s) White Blood Count 6.2 5.0-10.0 [facility] ([facility]) Red Blood Count 4.48 4.00-5.40 [facility] ([facility]) Platelets 250 172-450 [facility] Hemoglobin 12.4 [facility] ([facility]) Hematocrit 39.0 [facility] ([facility]) ID Date Data Source [id number] 06/28/2021 08:11:00 AM EDT [facility] (Thai Shay [...] (Thai Shay MD) ID Date Data Source [id number] 06/28/2021 08:11:00 AM EDT [facility] (Thai Shay [...] (Thai Shay MD) ID Date Data Source [id number] 06/28/2021 08:11:00 AM EDT [facility] (Thai Shay [...] Little GFR Left</content>
<content>ESRD GFR <15 on JEWELLERY DESIGNER</content>
<content></content> Laboratory test finding (navigational concept) 114 [...] Normal (applies to non-numeric results) [facility] (Thai Shya MD) Laboratory test finding (navigational concept) 118 [...] (Thai Shay MD) ID Date Data Source [id number] 06/28/2021 08:11:00 AM EDT [facility] (Thai Shay [...] (Thai Shay MD) ID Date Data Source [id number] 02/05/2021 07:16:00 PM EDT [facility] (Thai Shay [...] (Thai Shay MD) ID Date Data Source [id number] 02/05/2021 07:16:00 PM EDT [facility] (Thai Shay [...] Little GFR Left</content>
<content>ESRD GFR <15 on JEWELLERY DESIGNER</content>
<content></content> Laboratory test finding (navigational concept) 144 [...] (Thai Shay MD) ID Date Data Source [id number] 02/05/2021 07:16:00 PM EDT [facility] (Thai Shay [...] (Thai Shay MD) ID Date Data Source [id number] 02/05/2021 07:16:00 PM EDT MEDTANESHA (Thai Shay [...] <content>Troponin I Reference Interval f or Siemens Regina LOCI:</content>
<content></content>
<content>99th Percentile= 0.00-0.045 ng/ml</content>
<content></content>
<content>Risk Stratification:</content>
<content><= 0.10 ng/ml Decreased Risk for Adverse Clinical</content>
<content>Events.</content>
<content>0.10-1.50 ng/ml Increased Risk for Adverse Clinical</content>
<content>Events. Evaluation of additional</content>
<content>criterion and/or repeat testing in 2-6</content>
<content>hours is suggested to rule out myocardial</content>
<content>damage.</content>
<content>>= 1.50 ng/ml Indicative of Myocardial Injury.</content>
<content></content> ID Date Data Source [id number] 02/05/2021 07:16:00 PM EDT [facility] (Thai Shay MD) Name Value Range Interpretation Code Description Data Roan rce(s) Supporting Document(s) Laboratory test finding (navigational [...] (Thai Shay MD) ID Date Data Source [id number] 01/24/2021 12:08:32 PM EDT [facility] NT INFORMATIONPatient MRN Name Date of Age Gend*PT [id number] Susy Fernandes 1960 60 years F HOPPT Location Admission Date/Time Visit ID Attending ProviderCV-25 01/24/21 0914 --- Gisela Franks MD([id number]) EPI ID CSN Admitting Provider [id number] Gisela Franks MD([id number])[facility] [place]ARDIOVASCULAR [id number] [place] [id number] CARDIAC CATHETERIZATIONBretom Fernandes60 [facility] 2020Operator: Carmenza Perez physician: Dr. Sainioperative Diagnosis: PFO and CVAPostoperative Diagnosis: PFO and CVAPROCEDURES:1. Intracardiac echo.2. Successful closure of a PFO with an 25-mm Wymore Cardioform device.HISTORY:This is a pleasant 60-year-old female [...] into the right femoral vein. The 8- Uzbek AcuNav ICEcatheter was advanced and careful examination showed a PFOwith bidirectional shunt, predominantly left to right. Agitatedsaline contrast bubble injection was performed, which revealed the mjkmu-lp-yfzr shunt.Percutaneous PFO closure: the PFO was crossed with MP1 catheter and asoft tip Glidewire, which was advanced to the left superior pulmonary vein.Heparin was given IV.A 25-mm Wymore cardio form device was prepped, deaired, and advanced to the leftatrium.The left atrial disc was pulled, the device was pulled against the septumwhereby the right atrial disc was deployed.After appropriate confirmation on JUANITA and fluoroscopy the device was releasedand stayed in excellent position.Repeat JUANITA showed no significant shuntingSUMMARY: Successful closure of a PFO with bidirectional shunt usingan 25-mm Wymore Cardioform device with excellent results. The patient willbe discharged home later today.The amadeo ent will be maintained on aspirin indefinitely, Plavix for at least 6months.Antibiotic prophylaxis is recommended for the next one year.Patient will follow up with Dr. Shay in 3 months with an echocardiogram Name Value Range Interpretation Code Description Data Rona rce(s) Supporting Document(s) ID Date Data Source [id number] 01/24/2021 10:19:22 AM EDT [facility] Name Value Range Interpretation Code Description Data Rona rce(s) Supporting Document(s) EKG [facility] PGKVYa3fReKSExSxg9LuXgKhMUDeYW7jadp1M4E9uXLlP7EtzCKuj3ajU3JaA5HdGIHiUJWHAJ7VyCVi jb2 [file] delivery [file] OPTOMECHANICAL TECHNICIAN+rnrBHNBC7tY8j2iFQYAOLvXMV60AQRxWmUW6fjEZWq/qaBszNCo079A5Zpspg742kaq79i+Ne7oW+ [file] TChGXhI3zLPsQElMrNStNWZEkRVyEazJtPmKfgCi10A3q+dowel pointer/aVUX7LDLCQSHZDMDQ34fneLAa/kMCQ y76inHd2CMQyAQfgzdtv/2y0nvDi/8//+ZnL/cn0sDP59Qb9kLz/es9D/4czKk4T0g8gJ40legf/vnPi 0s3Wee2F/uFsxv1K7Y9aFvixQMGZ/5DkSMo7G84b/u VQHVp/tCf9x/aI9nJqQ8/nyf/74/skr5+C/J0UH/rHV+v//vj+eaKH/Alonso+F2guemVafb+Fs3Nwewa74 L/3qeH/j7oyyV49Tc6xb9mz25SgjXy6F5o5mlSYx6Lfb977k+V+PX7n1WV6+c/plkweUdwfZ8i2BLgAD ugGF0kOt1xMH51frN9Bo4JTu2v2BUmRRixe8gQ4nc1 uR3PUW7tlebcn11KwmSx0/PDd+meC99A1/en+c4+/E/O5t3nr2urO4x+/uNreR9/Menard/ut5/Oliveros/vWz35e IGPl1Xkz/9GWnx++wu6fmsqy/PD1/QbblY0jx3+cveGHb+7NjImQVWPvsGErbZR24ZaSwa/iY7QgdI79 33DVzDPPCCdaoy40rrxBDjgoejjbx/q+bO97t/P+Jr 3f+87BLTKZErBe8vPHayDeGiJE3kQaCi9u6AVC6xm1XFEGyjECvozbG5gQcjET7ByafJU1BAdRwSG8XN wTdGO5EJgDwHD5FCoLpXF4SMaW+T7sNcU8uIlY0nOaWg4ix+9LAjOralE7MdIUIzHX5Zg/E3wn+E5c78 B6BaeujcBpYI/df9k6jhqTL5/JtfqaNtAOOkDvplNf WQ4qBPB2Ixye+Xu6Bfyt+Dq7Ewo2+Nq2Vgz4+Ou1Gsy5+Lw6HjpW+Gx7QyhQ+Hs6WlkW+Tj2UzxI+G7w 3eV1hWrG2itkCt1clZv4arJcpCf1Z7nDnbVC9Ox8gViFHdaMf0+Tv9ChqA+Uc5TxvL+Ez7QurJ+Ar4Kv gq+Bt4Gfnk+Hk0Qaub+Cb+pkjCGOwMKEF46e+70wUl /N/LztnDEWaAPtoA/qeo95C831xrj0d5VaBYtLPj6hoaA+EnguWT9HwQM0uJ0B88VOOjWf/X+Njtm9Qy +gJ+h16Py+eEK9Z4Zfxd++qyH0ci0czmLA8ZHichWEL79Sp1bzwZ36qxvElEZGdyd0jzm0aR3sNq9/Oliveros [file] c5IWobGVZAZm== ID Date Data Source [id number] 01/24/2021 09:49:48 AM EDT [facility] CenterPAT[facility] NT INFORMATIONPatient MRN Name Date of Age Gend*PT [id number] Susy Fernandes 1960 60 years F HOPPT Location Admission Date/Time Visit ID Attending ProviderCV-01/24/21 0914 --- Gisela Franks MD([id number]) EPI ID CSN Admitting Provider [id number] Gisela Franks MD([id number])Updated H&PPlease see the scanned/dictated outpatient note.I have reviewed the note, clinical history and physical exam findings. Therehave been no significant changes.Plan as outlined in the outpatient note.Risk/benifit/alternative of cardiac catheterization was discussed withpatient/family. Risks included, but not limited to; MA, CVA, , renalimpairment, vascular complication, and need for emergency surgery were discussedand accepted by patient.Gisela Franks MD, [facility] Name Value Range Interpretation Code Description Data Rona rce(s) Supporting Document(s) ID Date Data Source [id number] 01/19/2021 10:00:00 AM EST [facility] (Thai Shay MD) Name Value Range Interpretation Code Description Data Rona rce(s) Supporting Document(s) Laboratory test finding (navigational concept) Laboratory test result [facility] (Thai Shay MD) This nucleic acid amplification test was developed and its performance characteristics determined by [employer]. Nucleic acid amplification tests include RT- PCR [...] detected) result in this assay. Performed at: [facility] [place] [address] [id number] Nocturnist: Lalitha Pulido PhD, Phone: [phone] Not Detected ID Date Data Source [id number] 01/19/2021 10:00:00 AM EST [facility] ([facility] Name Value Range Interpretation Code Description Data Rona rce(s) Supporting Document(s) Laboratory test finding (navigational concept) Laboratory test result [facility] ([facility]) This nucleic acid amplification test was developed and its performance characteristics determined by [employer]. Nucleic acid amplification tests include RT- PCR [...] detected) result in this assay. Performed at: [facility] [place] [address] [id number] Nocturnist: Lalitha Pulido PhD, Phone: [phone] Not Detected ID Date Data Source [id number] 01/19/2021 10:00:00 AM EST [facility] Name Value Range Interpretation Code Description Data Rona rce(s) Supporting Document(s) SARS coronavirus 2 RNA Not Detected [facility] [place] This lab was ordered by [facility] and reported by [employer]. ID Date Data Source [id number] 01/11/2021 05:49:00 PM EST [facility] ([facility]) Name Value Range Interpretation Code Description Data Rona rce(s) Supporting Document(s) White Blood Count 7.1 4.0-10.0 [facility] ([facility]) Platelets 241 150-450 [facility] Red Blood Count 4.30 4.00-5.40 [facility] ([facility]) Hemoglobin 12.1 [facility] ([facility]) Hematocrit 38.7 [facility] ([facility]) ID Date Data Source [id number] 01/11/2021 05:49:00 PM EST [facility] ([facility]) Name Value Range Interpretation Code Description Data Rona rce(s) Supporting Document(s) Glucose 109 70-100 [facility] Blood Urea Nitrogen 17 7-18 [facility] ([facility]) Creatinine 0.70 0.6-1.0 [facility] ([facility]) Sodium 143 136-145 [facility] Potassium 4.0 3.5-5.1 [facility] Chloride 110 98-107 [facility] Carbon Dioxide 28 21-32 [facility] ([facility]) Calcium 9.2 8.2-9.6 [facility] ([facility] Glomerular filtration rate/1.73 sq M.pre dicted [Volume Rate/Area] in Serum or Plasma by Creatinine-based formula (MDRD) Laboratory test result [facility] ([facility]) ID Date Data Source [id number] 01/11/2021 08:52:00 AM EST [facility] (Thai Shay [...] Little GFR Left</content>
<content>ESRD GFR <15 on JEWELLERY DESIGNER</content>
<content></content> Laboratory test finding (navigational concept) 143 [...] (Thai Shay MD) ID Date Data Source [id number] 01/11/2021 08:52:00 AM EST MEDTANESHA (Thai Shay [...] (Thai Shay MD) ID Date Data Source [id number] 01/11/2021 08:52:00 AM EST MEDTANESHA ([facility]) Name Value Range Interpretation Code Description Data Rona rce(s) Supporting Document(s) Glucose, Fasting 109 mg/dL 70-100 Above high normal M EDENT ([facility]) Blood Urea Nitrogen 17 mg/dL 7-18 Normal (applies to non-nume presley results) [facility] ([facility]) Creatinine For GFR 0.70 mg/dL 0.55-1.30 Normal (applies to non -numeric results) [facility] ([facility]) Glomerular Filtration Rate Laboratory test result Normal (applies to non- numeric results) [facility] ([facility]) <content>Units are mL/min/1.73 m2</content>
<content></content>
<content>Chronic Kidney Disease Staging per NKF:</content>
<content></content>
<content>Stage I & II GFR >=60 Normal to Mildly Decreased</content>
<content>Stage III GFR 30-59 Moderately Decreased</content>
<content>Stage IV GFR 15-29 Severely Decreased</content>
<content>Stage V GFR <15 Very Little GFR Left</content>
<content>ESRD GFR <15 on JEWELLERY DESIGNER</content>
<content></content> Sodium Level 143 meq/L 136-145 Normal (applies to non-numeric res ults) [facility] ([facility]) Potassium Serum 4.0 meq/L 3.5-5.1 Normal (applies to non-numeric results) [facility] ([facility]) Chloride Level 110 meq/L 98-107 Above high normal [facility] ([facility]) Carbon Dioxide Level 28 meq/L 21-32 Normal (applies to non-num odilia results) [facility] ([facility]) Calcium Level 9.2 mg/dL 8.8-10.2 Normal (applies to non-numeric re sults) [facility]) Anion Gap 5 meq/L 8-16 Below low normal [facility]) ID Date Data Source [id number] 01/11/2021 08:52:00 AM EST [facility] ([facility]) Name Value Range Interpretation Code Description Data Rona rce(s) Supporting Document(s) White Blood Count 7.1 10 4.0-10.0 Normal (applies to non-numeri c results) [facility] ([facility]) Red Blood Count 4.30 10 4.00-5.40 Normal (applies to non-numeric results) [facility] ([facility]) Hemoglobin 12.1 g/dL 12.0-15.5 Normal (applies to non-numeric resul ts) [facility] ([facility]) Hematocrit 38.7 % 36.0-47.0 Normal (applies to non-numeric resul ts) [facility] ([facility]) Mean Corpuscular Volume 90.0 fl 80.0-96.0 Normal ( applies to non-numeric results) [facility] Mean Corpuscular Hemoglobin 28.1 pg 27.0-33.0 Norm al (applies to non-numeric results) [facility] ([facility] Mean Corpuscular HGB Conc 31.3 g/dL 32.0-36.5 Below low normal [facility] ([facility]) Platelet Count, Automated 241 10 150-450 Normal (applies to non-numeric results) [facility] ([facility] Red Cell Distribution Width 13.4 % 11.5-14.5 Norm al (applies to non-numeric results) [facility] ([facility] Neutrophils % 61.5 % 36.0-66.0 Normal (applies to non-numeric re sults) [facility] ([facility]) Lymph % 27.5 % 24.0-44.0 Normal (applies to non-numeric resul ts) [facility] ([facility]) George % 7.2 % 2.0-8.0 Normal (applies to non-numeric resul ts) [facility] ([facility]) Eos % 2.7 % 0.0-3.0 Normal (applies to non-numeric resul ts) [facility] ([facility]) Baso % 0.7 % 0.0-1.0 Normal (applies to non-numeric resul ts) [facility] ([facility]) Immature Granulocyte % 0.4 % 0-3.0 Normal (applies to non-n umeric results) [facility] ([facility]) Nucleated Red Blood Cell % 0.0 % 0-0 Normal (applies to n on-numeric results) [facility] ([facility]) Neutrophils # 4.4 10 1.5-8.5 Normal (applies to non-numeric re sults) [facility] ([facility]) Lymph # 2.0 10 1.5-5.0 Normal (applies to non-numeric resul ts) [facility] ([facility]) George # 0.5 10 0.0-0.8 Normal (applies to non-numeric resul ts) [facility] ([facility]) Eos # 0.2 10 0.0-0.5 Normal (applies to non-numeric resul ts) [facility] ([facility]) Baso # 0.1 10 0.0-0.2 Normal (applies to non-numeric resul ts) [facility] ([facility]) ID Date Data Source [id number] 01/01/2021 12:09:00 PM EST [facility] (Thai Shay MD) Name Value Range Interpretation Code Description Data Rona rce(s) Supporting Document(s) Creatine kinase [Enzymatic activity/volume] in Serum or Plasma 6 9 U/L 26-192 Normal (applies to non-numeric results) [facility] (Thai diaz MD) ID Date Data Source [id number] 01/01/2021 12:09:00 PM EST [facility] (Thai Shay [...] (Thai Shay MD) ID Date Data Source [id number] 01/01/2021 12:09:00 PM EST [facility] (Thai Shay [...] Little GFR Left</content>
<content>ESRD GFR <15 on JEWELLERY DESIGNER</content>
<content></content> Laboratory test finding (navigational concept) 142 [...] (Thai Shay MD) ID Date Data Source [id number] 01/01/2021 12:09:00 PM EST MEDTANESHA (Thai Shay [...] (Thai Shay MD) ID Date Data Source [id number] 12/25/2020 01:04:00 PM EST MEDTANESHA (Thai Shay [...] (Thai Shay MD) ID Date Data Source [id number] 12/25/2020 01:04:00 PM EST JUAN ANTONIO (Thai [...] (Thai Shay MD) ID Date Data Source [id number] 12/25/2020 01:04:00 PM EST MEDTANESHA (Thai Shay [...] Little GFR Left</content>
<content>ESRD GFR <15 on JEWELLERY DESIGNER</content>
<content></content> Laboratory test finding (navigational concept) 3.8 [...] (Thai Shay MD) ID Date Data Source [id number] 12/25/2020 01:04:00 PM EST [facility] (Thai Shay [...] Normal (applies to non-numeric results) [facility] (Thai Shya MD) Laboratory test finding (navigational concept) 28.5 [...] (Thai Shay MD) ID Date Data Source [id number] 12/22/2020 09:40:[address] [facility] Name Value Range Interpretation Code Description Data Rona rce(s) Supporting Document(s) SARS coronavirus 2 RNA Not Detected [facility] This lab was ordered by [facility] and reported by [facility]. ID Date Data Source [id number] 12/20/2020 11:18:00 AM EST [facility] ([facility]) Name Value Range Interpretation Code Description Data Rona rce(s) Supporting Document(s) Surgical pathology study Laboratory test result [facility] ([facility]) FINAL DIAGNOSIS Below Z line, biopsy: Junctional mucosa with chronic inflammation and reactive changes. No evidence for intestinal metaplasia. 12/21/2020 - 1346 CLINICAL DIAGNOSIS Refractory heartburn, personal history of colon cancer 12/21/2020 - 7821 GROSS DIAGNOSIS Received in formalin labeled "below Z-line biopsy" consists of four fragments of jacobsen tissue, 0.4 x 0.4 x 0.2 cm in aggregate. All in one. -SV 12/21/2020 - 0723 Signed AVTAR RIVAS MD 12/21/2020 1437 ID Date Data Source [id number] 12/15/2020 09:30:00 AM EST [facility] Name Value Range Interpretation Code Description Data Rona rce(s) Supporting Document(s) SARS coronavirus 2 RNA Not Detected [facility] [place] This lab was ordered by [facility] and reported by [facility]. ID Date Data Source [id number] 12/08/2020 10:00:00 AM EST [facility] Name Value Range Interpretation Code Description Data Rona rce(s) Supporting Document(s) SARS coronavirus 2 RNA Not Detected [facility] [place] This lab was ordered by [facility] and reported by [facility]. ID Date Data Source [id number] 11/06/2020 11:01:00 AM EST [facility] ([facility]) Name Value Range Interpretation Code Description Data Rona rce(s) Supporting Document(s) Carbon dioxide, total [Moles/volume] in Serum or Plasma 28 [facility] ([facility]) Calcium [Mass/volume] in Serum or Plasma 8.6 [facility] ([facility]) Sodium 144 [facility] ([facility]) Chloride [Moles/volume] in Serum or Plasma 109 [facility] ([facility]) Potassium [Moles/volume] in Serum or Plasma 3.9 [facility] ([facility]) Blood Urea Nitrogen 13 5-21 [facility] ([facility]) Creatinine 0.67 0.6-1.5 [facility] ([facility]) Glucose 100 70-100 [facility] [place] [place] Glomerular filtration rate/1.73 sq M.pre dicted [Volume Rate/Area] in Serum or Plasma by Creatinine-based formula (MDRD) 60.0 [facility] ([facility]) ID Date Data Source [id number] 11/06/2020 11:01:00 AM EST [facility] Name Value Range Interpretation Code Description Data Rona rce(s) Supporting Document(s) Red Blood Count 4.13 4.70-6.20 [facility] White Blood Count 6.0 4.3-10.9 [facility] Hemoglobin 11.5 13.0-17.0 [facility] Hematocrit 36.7 39.0-50.0 [facility]) Platelets 219 130-400 [facility] ([facility]) ID Date Data Source [id number] 11/04/2020 08:58:25 PM [facility] Name Value Range Interpretation Code Description Data Rona rce(s) Supporting Document(s) Progress Note [facility] DBOMGs3jCaYYOjYh19/RYArcKRSrp4QzAArmHWo2PMaiWWKkH4PeTYP7eX0qNBN2KMzNJnZxRwQjGiS3 m [file] ICAgICAgICAgICAgICAgICAgICAgICAgICAgICAgIC AgICAgICAgICAgICAgICAgICAgICAgICAgICAgICAgICAgICAgICAgICAgICAgICAgICAgICAgICAgIC AgDQogICAgICAgICAgICAgICAgICAgICAgICAgICAgICAgICAgICAgICAgICAgICAgICAgICAgICAgIC AgICAgICAgICAgICAgICAgICAgICAgICAgICAgICAg ICAgICAgICAgICAgDQogICAgICAgICAgICAgICAgICAgICAgICAgICAgICAgICAgICAgICAgICAgICAg ICAgICAgICAgICAgICAgICAgICAgICAgICAgICAgICAgICAgICAgICAgICAgICAgICAgICAgDQogICAg ICAgICAgICAgICAgICAgICAgICAgICAgICAgICAgIC AgICAgICAgICAgICAgICAgICAgICAgICAgICAgICAgICAgICAgICAgICAgICAgICAgICAgICAgICAgIC AgICAgDQogICAgICAgICAgICAgICAgICAgICAgICAgICAgICAgICAgICAgICAgICAgICAgICAgICAgIC AgICAgICAgICAgICAgICAgICAgICAgICAgICAgICAg ICAgICAgICAgICAgICAgDQogICAgICAgICAgICAgICAgICAgICAgICAgICAgICAgICAgICAgICAgICAg ICAgICAgICAgICAgICAgICAgICAgICAgICAgICAgICAgICAgICAgICAgICAgICAgICAgICAgICAgDQog ICAgICAgICAgICAgICAgICAgICAgICAgICAgICAgIC AgICAgICAgICAgICAgICAgICAgICAgICAgICAgICAgICAgICAgICAgICAgICAgICAgICAgICAgICAgIC AgICAgICAgDQogICAgICAgICAgICAgICAgICAgICAgICAgICAgICAgICAgICAgICAgICAgICAgICAgIC AgICAgICAgICAgICAgICAgICAgICAgICAgICAgICAg ICAgICAgICAgICAgICAgICAgDQogICAgICAgICAgICAgICAgICAgICAgICAgICAgICAgICAgICAgICAg ICAgICAgICAgICAgICAgICAgICAgICAgICAgICAgICAgICAgICAgICAgICAgICAgICAgICAgICAgICAg DQogICAgICAgICAgICAgICAgICAgICAgICAgICAgIC AgICAgICAgICAgICAgICAgICAgICAgICAgICAgICAgICAgICAgICAgICAgICAgICAgICAgICAgICAgIC KaSWThTXOhIJSuCOt8X0krOXEtKGNbOJ0pHNb4Mg0+WXgYHwKnDBV1awMvqM7MKX1vz0KiJFliELEhr9 EaLMg8ZE7KTPIkABzjRD7HUBaqdl9YUQByTGUdzJHS k7znLxYvZNJ0DSWgHokpRM0UIPJzB4ddivYkQXJvRRDFHIrvOCRYAZcwLXSJHHBbTYJhBuOfRLfvBI2R f3JnvLV0ZGs+Hc3KOE4no0LsSXhmHVVmIK4ahy8IFFgFCtIuV9CodiZ5KBE6OXIvWe2QEDVuADGthMDj ZKSuVSYOJwJyM6EflI72ORLAIc0+DQplbmRvYmoNCj F9VPNma5YiBZl6OP1NOSOpGYr2gNXsPQLmH2Rmk6ZrDc22CBLfLgssPNHomHWnOGEoYCHyp7KlQDSLGh HTHNPdqGYxOg5tBk4oCBTcXZQ8OzG7ENWHAH6PCMLkZXKggIDySQZmLCQLXU2LQRgjHCD6AEKgwbZlxX WcHEfjAA4RTLLhctNnFutpBZLQBPj+Ye3ZOV7il2Qz SWojBFItFB9bow9FNWnZIiMxZ6N3qOZgO1N3GUarHk3MGRZqXPJrOoUnZAUULBmiUC5AYZ0wulU6VY2N eTJaDKLnRYMzqMZuCJi7D03gzJByLTkaYK8OQAM+Raulito+Pf0FXCYlTGRmESHuYiYsRTJVFuQfZ7XsI5PA j3GhD5CoNA55jGajyaHlZZccRG3EWC6nRICvDZNMNI 2PaOJhsD2jgjYwAKWsTUUUWxLiW21xgJXiIJIwVWR1SEUhLe9KTNSpJ7IozsWziHefvpTpWVSfOMXLSH 5JZYhcyeTjiFOmzWabEL14yIlxTS8BLp8GXtLzWQ4qfp5AbVUaGb7PAYTsOL7LWKNsOWPyUPEuOBB1VG HkKcDcVEumXVFwHGDiFWT3KAYiMJHwHB4ZRfUvWWUj NfB0MWEtWNDhDOVzyt6VHHElUCJhNAT1IBMtRJCzAEJrYMszQXRhTOPyGPA4RKBtGLNzGH9YScDtEOMw NSW6YONeMLWlAMXqjz0ZJZBuULBwXkb2SlMzNGOrIUJxBXhgMQNoMVI7KpR1QASsIIGzVU7YTaCfYGLa COs9RkGtPCMiMRVjfx4PXZWgVODfVfD1GdSzRWUhXE XhHUpbYVUrZCRxIfQ1WOUnQNHcMQ9ECqEsPQGaVBOyUMCrQGAsLJPuwr0UCAXaTOTwOiAnDdVjJDPlDL IuPEfwXRGtQWH6NKb8BROuGDVjSD7SQfTqKXUjSDW6UiJtCUGfFOWyoo2BDGTaXTBcHOy9ZnCiZSPqYY WdLSybMAZgBNY7HNA7SMTuROImKS3IRcAvBMLxDDNe QPozZIVrBYAyzo7YNBTrPMFrSgBbBvXzTCYfMLDmQDnuGOUrOWCzFXA3FVCyCBRaJK4APeZbHMJgKgTn KzDhOOExAUPfbx5OXKFxKMQkNUXmIRTvZJEsFZMrGXohIPVsRDY5WEIpRVKqJYRuUW0YBnEkQOWqYqNz MZnsQWBaNIPypu2LJRPbYRCnBuGlDlPpHAXqZFGlPO erRFGhBUT5ViQhZTMlSHXlXO8IGiSaIELiRbIvQFLsTJHqTVQnqg1ZJIZcFZJmAedpBGFiDCBxCXOfRE irMRLhNUI2OlN7BQGrJFVpGB9ILeYvTMJnYmtjOrrcAENlCQDxwv2VDZTpJBJlDVK9UbPnONEqSNXeOT d7neNxvJNnALv0HM4QR2MqqiNrYyUJJq0Gp864TOYl KJRfZa6GD6cmLb5dBKWjMDMMPe1CQDn8ABnoPzT7KNIzMwT6YYVgQZJfIUYyBET5QbO5ZBV0DnH+IDxl LkS4IPt4DAOqAZl8UXR2UvPfKjTxOJA4ExEhFTplEy8aLBYZNf5+SBtrcAFdqQtqLNAYHtF6OiM4EKmf IEDANl5P ID Date Data Source [id number] 11/04/2020 08:33:00 PM EST [facility] Name Value Range Interpretation Code Description Data Rona rce(s) Supporting Document(s) SARS coronavirus 2 RNA [Presence] in Res piratory specimen by VIKAS with probe detection [facility] This lab was ordered by [facility] a nd reported by [facility]. ID Date Data Source [id number] 10/26/2020 12:00:00 AM EST [facility] Name Value Range Interpretation Code Description Data Rona rce(s) Supporting Document(s) SARS-CoV2 Rapid Antigen [facility] This lab was ordered by [facility] and reported by Thai Shay MD. ID Date Data Source [id number] 08/14/2020 10:54:00 AM EDT [facility] ([facility]) Name Value Range Interpretation Code Description Data Rona rce(s) Supporting Document(s) White Blood Count 5.6 5.0-10.0 [facility] ([facility]) Red Blood Count 4.30 4.00-5.40 [facility] ([facility]) Platelets 218 172-450 [facility] Hemoglobin 12.1 [facility] ([facility]) Hematocrit 38.3 [facility] ([facility]) ID Date Data Source [id number] 08/14/2020 10:54:00 AM EDT [facility] ([facility]) Name Value Range Interpretation Code Description Data Rona rce(s) Supporting Document(s) Cholesterol 195 [facility] ([facility]) Triglycerides 184 [facility] ([facility]) HDL 62 [facility] Cholesterol in LDL [Mass/volume] in Serum or Plasma by calculation 95 [facility] ([facility]) Chol/HDL Ratio 3.145 [facility] ([facility]) ID Date Data Source [id number] 08/14/2020 10:54:00 AM EDT [facility] ([facility]) Name Value Range Interpretation Code Description Data Rona rce(s) Supporting Document(s) Albumin [Mass/volume] in Serum or Plasma 4.0 [facility] ([facility]) Alanine aminotransferase [Enzymatic activity/volume] in Serum or Pl asma 28 [facility] ([facility]) Calcium [Mass/volume] in Serum or Plasma 9.2 [facility] ([facility]) Carbon dioxide, total [Moles/volume] in Serum or Plasma 29 [facility] ([facility]) Alkaline phosphatase [Enzymatic activity/volume] in Serum or Plasma 1 40 [facility] ([facility]) Potassium [Moles/volume] in Serum or Plasma 4.5 [facility] ([facility]) Chloride [Moles/volume] in Serum or Plasma 111 [facility] ([facility]) Aspartate aminotransferase [Enzymatic activity/volume] in Serum or Plasma 15 [facility] ([facility]) Sodium 144 [facility] ([facility]) Protein [Mass/volume] in Serum or Plasma 7.0 [facility] ([facility]) Glucose 105 83-110 [facility] ([facility] Urea nitrogen [Mass/volume] in Serum or Plasma 13 [facility] ([facility]) Creatinine For GFR 0.72 [facility] ([facility]) ID Date Data Source [id number] 08/10/2020 10:00:00 AM EDT [facility] Name Value Range Interpretation Code Description Data Rona rce(s) Supporting Document(s) SARS coronavirus 2 RNA [facility] This lab was ordered by [facility] and reported by [facility]. Procedure Social History Code Duration Value Status Description Data Source(s ) Smoking 08/30/2021 12:00:00 AM EDT Never Smoker completed Never S moker eCW1 ([facility]) Smoking 08/28/2021 12:00:00 AM EDT Patient has never smoked co mpleted Patient has never smoked [facility] ([facility]) Smoking 07/06/2021 12:00:00 AM EDT Never Smoker completed Never S moker eCW1 ([facility]) Smoking 06/11/2021 12:00:00 AM EDT Never Smoker completed Never S moker eCW1 ([facility]) Smoking 06/11/2021 12:00:00 AM EDT Never Smoker completed Never S moker eCW1 ([facility]) Smoking 06/11/2021 12:00:00 AM EDT Never Smoker completed Never S moker eCW1 ([facility]) Smoking 06/11/2021 12:00:00 AM EDT Never Smoker completed Never S moker eCW1 ([facility]) Smoking 05/31/2021 12:00:00 AM EDT Never Smoker completed Never S moker eCW1 ([facility]) Smoking 05/31/2021 12:00:00 AM EDT Never Smoker completed Never S moker eCW1 ([facility]) Smoking 05/29/2021 12:00:00 AM EDT Never Smoker completed Never S moker eCW1 ([facility]) Smoking 05/16/2021 12:00:00 AM EDT Never Smoker completed Never S moker eCW1 ([facility]) Smoking 05/16/2021 12:00:00 AM EDT Never Smoker completed Never S moker eCW1 ([facility]) Smoking 05/16/2021 12:00:00 AM EDT Never Smoker completed Never S moker eCW1 ([facility]) Smoking 04/25/2021 12:00:00 AM EDT Patient has never smoked co mpleted Patient has never smoked [facility] ([facility]) Smoking 04/19/2021 12:00:00 AM EDT Never Smoker completed Never S moker eCW1 ([facility]) Smoking 04/19/2021 12:00:00 AM EDT Never Smoker completed Never S moker eCW1 ([facility]) Smoking 04/17/2021 12:00:00 AM EDT Never Smoker completed Never S moker eCW1 ([facility]) Alcohol intake 01/24/2021 12:00:00 AM EDT Not Currently completed [facility] Smoking 01/24/2021 12:00:00 AM EDT Never smoker completed Never s moker [facility] Smoking 01/08/2021 12:00:00 AM EST Never Smoker completed Never S moker eCW1 ([facility]) Smoking 12/13/2020 12:00:00 AM EST Never Smoker completed Never S moker eCW1 ([facility]) Smoking 12/13/2020 12:00:00 AM EST Never Smoker completed Never S moker eCW1 ([facility]) Smoking 11/17/2020 12:00:00 AM EST Never Smoker completed Never S moker eCW1 ([facility]) Smoking 11/17/2020 12:00:00 AM EST Never Smoker completed Never S moker eCW1 ([facility]) Smoking 08/15/2020 12:00:00 AM EDT Never Smoker completed Never S moker eCW1 ([facility]) Vital Signs ID Date Data Source [id number] Name Value Range Interpretation Code Description Data Source(s) Body weight 218.0 [lb_av] 218.0 [lb_av] eCW1 ([facility]) Body weight 98.88 kg 98.88 kg eCW1 ([facility]) Body height 64 [in_i] 64 [in_i] eCW1 ([facility]) Body mass index (BMI) [Ratio] 37.42 kg/m2 37.42 kg/m2 eCW1 ([facility]) Heart rate 77 /min 77 /min eCW1 ([facility]) Respiratory rate 18 /min 18 /min eCW1 ([facility]) Body temperature 97.1 [degF] 97.1 [degF] eCW1 ( [facility]) Systolic blood pressure 149 mm[Hg] 149 mm[Hg] e CW1 ([facility]) Diastolic blood pressure 70 mm[Hg] 70 mm[Hg] eCW1 ([facility]) Body mass index (BMI) [Ratio] 38.3 kg/m2 38.3 k g/m2 [facility] ([facility]) Heart rate 66 /min 66 /min [facility] ([facility]) Systolic blood pressure--sitting 128 mm[Hg] 128 mm[Hg] [facility] ([facility]) Ra, large cuff Diastolic blood pressure--sitting 74 mm[Hg] 74 mm[Hg] [facility] ([facility]) Ra, large cuff Body weight 216.00 [lb_av] 216.00 [lb_av] MEDEN T ([facility]) Body height 63 [in_i] 63 [in_i] [facility] ([facility]) 5'3" Body weight 217 [lb_av] 217 [lb_av] eCW1 ([facility] Body weight 98.43 kg 98.43 kg eCW1 ([facility]) Body height 64 [in_i] 64 [in_i] eCW1 ([facility]) Body mass index (BMI) [Ratio] 37.24 kg/m2 37.24 kg/m2 eCW1 ([facility]) Body temperature 97.5 [degF] 97.5 [degF] eCW1 ( [facility]) Body weight 217 [lb_av] 217 [lb_av] eCW1 ([facility]) Body weight 98.43 kg 98.43 kg eCW1 ([facility]) Body height 64 [in_i] 64 [in_i] eCW1 ([facility]) Body mass index (BMI) [Ratio] 37.24 kg/m2 37.24 kg/m2 eCW1 ([facility]) Heart rate 73 /min 73 /min eCW1 ([facility]) Respiratory rate 19 /min 19 /min eCW1 ([facility]) Body temperature 97.7 [degF] 97.7 [degF] eCW1 ( [facility]) Systolic blood pressure 128 mm[Hg] 128 mm[Hg] e CW1 ([facility]) Diastolic blood pressure 84 mm[Hg] 84 mm[Hg] eCW1 ([facility]) Heart rate 69 /min 69 /min eCW1 ([facility]) Body weight 220 [lb_av] 220 [lb_av] eCW1 ([facility]) Body height 64 [in_i] 64 [in_i] eCW1 ([facility]) Diastolic blood pressure 78 mm[Hg] 78 mm[Hg] eCW1 ([facility]) Body mass index (BMI) [Ratio] 37.76 kg/m2 37.76 kg/m2 eCW1 ([facility]) Respiratory rate 20 /min 20 /min eCW1 ([facility]) Body temperature 98.0 [degF] 98.0 [degF] eCW1 ( [facility]) Systolic blood pressure 157 mm[Hg] 157 mm[Hg] e CW1 ([facility]) Body weight 220 [lb_av] 220 [lb_av] eCW1 ([facility]) Systolic blood pressure 120 mm[Hg] 120 mm[Hg] e CW1 ([facility]) Body height 64 [in_i] 64 [in_i] eCW1 ([facility]) Body mass index (BMI) [Ratio] 37.76 kg/m2 37.76 kg/m2 eCW1 ([facility]) Heart rate 77 /min 77 /min eCW1 ([facility]) Respiratory rate 20 /min 20 /min eCW1 ([facility]) Body temperature 97 [degF] 97 [degF] eCW1 ([facility]) Diastolic blood pressure 80 mm[Hg] 80 mm[Hg] eCW1 ([facility]) Body weight 223 [lb_av] 223 [lb_av] eCW1 ([facility]) Body height 64 [in_i] 64 [in_i] eCW1 ([facility]) Body mass index (BMI) [Ratio] 38.27 kg/m2 38.27 kg/m2 eCW1 ([facility]) Heart rate 66 /min 66 /min eCW1 ([facility]) Respiratory rate 16 /min 16 /min eCW1 ([facility]) Body temperature 98.2 [degF] 98.2 [degF] eCW1 ( [facility]) Systolic blood pressure 134 mm[Hg] 134 mm[Hg] e CW1 ([facility]) Diastolic blood pressure 75 mm[Hg] 75 mm[Hg] eCW1 ([facility]) Diastolic blood pressure 80 mm[Hg] 80 mm[Hg] [facility] ([facility] Systolic blood pressure 140 mm[Hg] 140 mm[Hg] M EDENT ([facility]) Heart rate 60 /min 60 /min [facility] ([facility]) Body weight 224.00 [lb_av] 224.00 [lb_av] MEDEN T ([facility]) Body height 63 [in_i] 63 [in_i] [facility] ([facility]) 5'3" Body mass index (BMI) [Ratio] 39.7 kg/m2 39.7 k g/m2 [facility] ([facility]) Oxygen saturation in Arterial blood by Pulse oximetry 99 % 99 % [facility] ([facility]) Body surface area Derived from formula 2.03 m2 2.03 m2 [facility] ([facility]) Body weight 225 [lb_av] 225 [lb_av] eCW1 ([facility]) Body height 64 [in_i] 64 [in_i] eCW1 ([facility]) Body mass index (BMI) [Ratio] 38.62 kg/m2 38.62 kg/m2 eCW1 ([facility]) Heart rate 80 /min 80 /min eCW1 ([facility]) Respiratory rate 18 /min 18 /min eCW1 ([facility]) Body temperature 96.6 [degF] 96.6 [degF] eCW1 ( [facility]) Systolic blood pressure 134 mm[Hg] 134 mm[Hg] e CW1 ([facility]) Diastolic blood pressure 78 mm[Hg] 78 mm[Hg] eCW1 ([facility]) Body weight 226.2 [lb_av] 226.2 [lb_av] eCW1 ([facility]) Body height 64 [in_i] 64 [in_i] eCW1 ([facility]) Body mass index (BMI) [Ratio] 38.82 kg/m2 38.82 kg/m2 eCW1 ([facility]) Heart rate 84 /min 84 /min eCW1 ([facility]) Respiratory rate 18 /min 18 /min eCW1 ([facility]) Body temperature 97.0 [degF] 97.0 [degF] eCW1 ( [facility]) Systolic blood pressure 151 mm[Hg] 151 mm[Hg] e CW1 ([facility]) Diastolic blood pressure 84 mm[Hg] 84 mm[Hg] eCW1 ([facility]) Body height 64 [in_i] 64 [in_i] [facility] [...] by Pulse oximetry 98 % 98 % [facility] Systolic blood pressure 134 mm[Hg] 134 mm[Hg] [facility] Diastolic blood pressure 87 mm[Hg] 87 mm[Hg] [facility] Heart rate 64 /min 64 /min [facility] Body temperature 36.5 Debra 36.5 Debra [facility] Respiratory rate 16 /min 16 /min [facility] Body height 161.3 cm 161.3 cm [facility] Body weight 101.7 kg 101.7 kg [facility] Body mass index (BMI) [Ratio] 39.09 kg/m2 39.09 kg/m2 [facility] Systolic blood pressure 133 mm[Hg] 133 [...] pressure 119 mm[Hg] 119 mm[Hg] e CW1 ([facility]) Body temperature 96.5 [degF] 96.5 [degF] eCW1 ( [facility]) Body weight 228 [lb_av] 228 [lb_av] eCW1 ([facility]) Body height 64 [in_i] 64 [in_i] eCW1 ([facility]) Body mass index (BMI) [Ratio] 39.13 kg/m2 39.13 kg/m2 eCW1 ([facility]) Heart rate 62 /min 62 /min eCW1 ([facility]) Respiratory rate 18 /min 18 /min eCW1 ([facility]) Diastolic blood pressure 76 mm[Hg] 76 mm[Hg] eCW1 ([facility]) Respiratory rate 18 /min 18 /min eCW1 ([facility]) Body weight 229.4 [lb_av] 229.4 [lb_av] eCW1 ([facility]) Body height 64 [in_i] 64 [in_i] eCW1 ([facility]) Body mass index (BMI) [Ratio] 39.37 kg/m2 39.37 kg/m2 eCW1 ([facility]) Heart rate 73 /min 73 /min eCW1 ([facility]) Body temperature 97.9 [degF] 97.9 [degF] eCW1 ( [facility]) Systolic blood pressure 157 mm[Hg] 157 mm[Hg] e CW1 ([facility]) Diastolic blood pressure 81 mm[Hg] 81 mm[Hg] eCW1 ([facility]) Body mass index (BMI) [Ratio] 39.5 kg/m2 39.5 k g/m2 [facility] ([facility]) Diastolic blood pressure 83 mm[Hg] 83 mm[Hg] [facility] ([facility]) Heart rate 90 /min 90 /min [facility]) Body weight 104.328 kg 104.328 kg [facility] ([facility] Body temperature 97.7 [degF] 97.7 [degF] [facility] ([facility]) Body height 64 [in_i] 64 [in_i] [facility] ([facility]) 5'4" Body weight 230.00 [lb_av] 230.00 [lb_av] MEDEN T ([facility]) Systolic blood pressure 135 mm[Hg] 135 mm[Hg] M EDENT ([facility]) Body height 63 [in_i] 63 [in_i] [facility] ([facility]) 5'3" Body weight 229.00 [lb_av] 229.00 [lb_av] MEDEN T ([facility]) Body mass index (BMI) [Ratio] 40.6 kg/m2 40.6 k g/m2 [facility] ([facility]) Heart rate 57 /min 57 /min [facility] ([facility]) Systolic blood pressure--sitting 135 mm[Hg] 135 mm[Hg] [facility] ([facility]) CBP, large cuff/Ra Diastolic blood pressure--sitting 75 mm[Hg] 75 mm[Hg] [facility] ([facility]) CBP, large cuff/Ra Heart rate 78 /min 78 /min [facility] ([facility]) Systolic blood pressure 110 mm[Hg] 110 mm[Hg] M EDENT ([facility]) Body weight 229.00 [lb_av] 229.00 [lb_av] MEDEN T ([facility]) Body mass index (BMI) [Ratio] 40.6 kg/m2 40.6 k g/m2 [facility] ([facility]) Body surface area Derived from formula 2.05 m2 2.05 m2 [facility] ([facility]) Diastolic blood pressure 68 mm[Hg] 68 mm[Hg] [facility] ([facility]) Body height 63 [in_i] 63 [in_i] [facility] ([facility] 5'3" Body temperature 96.0 [degF] 96.0 [degF] eCW1 ( [facility]) Body weight 230.4 [lb_av] 230.4 [lb_av] eCW1 ([facility]) Body height 64 [in_i] 64 [in_i] eCW1 ([facility]) Body mass index (BMI) [Ratio] 39.54 kg/m2 39.54 kg/m2 eCW1 ([facility]) Heart rate 75 /min 75 /min eCW1 ([facility]) Respiratory rate 18 /min 18 /min eCW1 ([facility]) Systolic blood pressure 123 mm[Hg] 123 mm[Hg] e CW1 ([facility]) Diastolic blood pressure 77 mm[Hg] 77 mm[Hg] eCW1 ([facility]) Body height 64 [in_i] 64 [in_i] [facility] [...] Body weight 232.4 [lb_av] 232.4 [lb_av] eCW1 ([facility]) Body height 64 [in_i] 64 [in_i] eCW1 ([facility]) Body mass index (BMI) [Ratio] 39.89 kg/m2 39.89 kg/m2 eCW1 ([facility]) Heart rate 58 /min 58 /min eCW1 ([facility]) Respiratory rate 18 /min 18 /min eCW1 ([facility]) Body temperature 97.5 [degF] 97.5 [degF] eCW1 ( [facility]) Systolic blood pressure 162 mm[Hg] 162 mm[Hg] e CW1 ([facility]) Diastolic blood pressure 79 mm[Hg] 79 mm[Hg] eCW1 ([facility]) ID Date Data Source [id number] 11/08/2020 07:51:33 AM [facility] Name Value Range Interpretation Code Description Data Source(s) TRANSFER FROM [facility] Patient Treatment Plan of Care Planned Activity Planned Date Details Description Data Source (s) Amoxicillin 500 MG Oral Capsule 01/24/2021 12:00:00 AM EDT [facility] clopidogrel 75 MG Oral Tablet 01/24/2021 12:00:00 AM EDT [facility] Aspirin 81 MG Delayed Release Oral Tablet 01/24/2021 12:00:00 AM ED T [facility] clopidogrel 75 MG Oral Tablet [facility] Aspirin 81 MG Delayed Release Oral Tablet [facility]
[2021-09-16 11:13] LABS: RSV AMPLIFICATION NEGATIVE (NEGATIVE)
[2021-09-16] MEDS ORDERED: DOXY-443 PO (11:41)
[2021-09-16 11:45] VITALS: BP 156/80
== END 2021-09-16 12:07 | disposition home or self-care (01) ==
LOC: M ED 08:28
DX: J04.0 Acute laryngitis (principal); J01.90 Acute sinusitis, unspecified; I10 Essential (primary) hypertension; E78.5 Hyperlipidemia, unspecified; G47.33 Obstructive sleep apnea (adult) (pediatric); K21.9 Gastro-esophageal reflux disease without esophagitis; Z98.84 Bariatric surgery status; Z86.73 Personal history of transient ischemic attack (TIA), and cerebral infarction without residual deficits; Z79.82 Long term (current) use of aspirin; Z79.899 Other long term (current) drug therapy

== ENCOUNTER → 2021-10-17 | Outpatient (CLI) | payer MEDICARE, MEDICAID ==
[~2021-10-17] MED LIST changes: +DOXY-443 PO; -OMEP-221 PO; +OMEP40CA5 PO
== END ==
LOC: M PAIN 14:45
PROVIDERS: ATTEND Anesthesiology
DX: M51.16 Intervertebral disc disorders with radiculopathy, lumbar region (principal); G89.29 Other chronic pain; Z79.82 Long term (current) use of aspirin; Z79.899 Other long term (current) drug therapy

== ENCOUNTER → 2021-10-24 | Outpatient (CLI) | payer MEDICARE, MEDICAID ==
[~2021-10-24] MED LIST changes: +OMEP-221 PO; -OMEP40CA5 PO
== END ==
LOC: M LABSMTC 10:49
PROVIDERS: ATTEND Anesthesiology
DX: Z01.812 Encounter for preprocedural laboratory examination (principal); Z20.822 Contact with and (suspected) exposure to COVID-19

== ENCOUNTER → 2021-10-29 | Outpatient (CLI) | payer MEDICARE, MEDICAID ==
[~2021-10-29] MED LIST changes: +ISOVUE-M 300 61% 15ML VIAL As Ordered ONE; +LIDOCAINE 1% SDV 30ML VIAL As Ordered ONE; +diazePAM 5MG TABLET As Ordered ONE; +methylPREDNISolone SUSP 40MG/ML 1ML VIAL (DEPO MEDROL) As Ordered ONE; +oxyCODONE 5MG TAB As Ordered ONE
--- NOTE | 2021-10-29 15:20 | REP ---
INDICATION: LUMBAR EPIDURAL STEROID INJECTION. COMPARISON: None. TECHNIQUE: Intraoperative fluoroscopic imaging using portable C-arm technique. FINDINGS: Catheter and contrast overlie the midline lower lumbar spine consistent with lumbar epidural steroid injection. Total fluoroscopic time 10.4 seconds. IMPRESSION: Findings consistent with lumbar epidural steroid injection <Electronically signed by Audi Jacob > 10/29/21 [id number]
== END ==
LOC: M PAIN 08:30
PROVIDERS: ATTEND Anesthesiology
DX: M51.16 Intervertebral disc disorders with radiculopathy, lumbar region (principal); G47.33 Obstructive sleep apnea (adult) (pediatric); Z98.84 Bariatric surgery status; Z86.59 Personal history of other mental and behavioral disorders; Z79.82 Long term (current) use of aspirin; Z79.899 Other long term (current) drug therapy
CPT/HCPCS: 62323; J1030; Q9967

== ENCOUNTER → 2021-12-14 | Outpatient (CLI) | payer MEDICARE, MEDICAID ==
[~2021-12-14] MED LIST changes: -ISOVUE-M 300 61% 15ML VIAL As Ordered ONE; -LIDOCAINE 1% SDV 30ML VIAL As Ordered ONE; -OMEP-221 PO; +OMEP40CA5 PO; -diazePAM 5MG TABLET As Ordered ONE; -methylPREDNISolone SUSP 40MG/ML 1ML VIAL (DEPO MEDROL) As Ordered ONE; -oxyCODONE 5MG TAB As Ordered ONE
== END ==
LOC: M RAD 07:18
PROVIDERS: ATTEND Anesthesiology
DX: M79.10 Myalgia, unspecified site (principal)

== ENCOUNTER → 2021-12-28 | Outpatient (CLI) | payer MEDICARE, MEDICAID ==
[2021-12-28 11:41] LABS: BLOOD UREA NITROGEN 19 MG/DL (7-18); CALCIUM LEVEL 9.4 MG/DL (8.8-10.2); CARBON DIOXIDE LEVEL 26 MEQ/L (21-32); CHLORIDE LEVEL 110 MEQ/L (98-107); CREATININE FOR GFR 0.75 MG/DL (0.55-1.30); GLOMERULAR FILTRATION RATE > 60.0 (>45); GLUCOSE, FASTING 97 MG/DL (70-100); POTASSIUM SERUM 4.7 MEQ/L (3.5-5.1); SODIUM LEVEL 142 MEQ/L (136-145)
[2021-12-28 12:23] LABS: HEMOGLOBIN A1c 6.1 %
== END ==
LOC: M PLALAB 08:32
PROVIDERS: ATTEND Family Medicine
DX: R73.03 Prediabetes (principal); I10 Essential (primary) hypertension

== ENCOUNTER → 2022-01-14 | Outpatient (CLI) | payer MEDICARE, MEDICAID | LOC: M WHC 08:08 | PROVIDERS: ATTEND Internal Medicine Hematology & Oncology | DX: R94.5 Abnormal results of liver function studies (principal); Z13.820 Encounter for screening for osteoporosis; M85.88 Other specified disorders of bone density and structure, other site; M85.851 Other specified disorders of bone density and structure, right thigh; M85.852 Other specified disorders of bone density and structure, left thigh ==

== ENCOUNTER → 2022-01-31 | Outpatient (CLI) | payer MEDICARE, MEDICAID ==
[~2022-01-31] MED LIST changes: +ALEN70TA82 PO; +REXU1TAB4 PO
== END ==
LOC: M PLAIMG 10:36
PROVIDERS: ATTEND Family Medicine
DX: J32.9 Chronic sinusitis, unspecified (principal)

== ENCOUNTER → 2022-02-20 | Outpatient (CLI) | payer MEDICARE, MEDICAID | LOC: M LABSMTC 09:11 | PROVIDERS: ATTEND Anesthesiology | DX: Z01.812 Encounter for preprocedural laboratory examination (principal); Z20.822 Contact with and (suspected) exposure to COVID-19 ==

== ENCOUNTER → 2022-02-25 | Outpatient (CLI) | payer MEDICARE, MEDICAID ==
[~2022-02-25] MED LIST changes: +BUPIVACAINE HCL 0.25% 10ML VIAL As Ordered ONE; +BUPIVACAINE HCL 0.25% 30ML VIAL As Ordered ONE; +TRIAMCINOLONE ACETONIDE SUSP 40 MG/ML VIAL (J3301) As Ordered ONE; +diazePAM 5MG TABLET As Ordered ONE; +oxyCODONE 5MG TAB As Ordered ONE
== END ==
LOC: M PAIN 08:30
PROVIDERS: ATTEND Anesthesiology
DX: M79.18 Myalgia, other site (principal); G47.33 Obstructive sleep apnea (adult) (pediatric); Z86.73 Personal history of transient ischemic attack (TIA), and cerebral infarction without residual deficits; Z98.84 Bariatric surgery status; Z86.59 Personal history of other mental and behavioral disorders; Z79.82 Long term (current) use of aspirin; Z79.899 Other long term (current) drug therapy
CPT/HCPCS: 20552; J3301

== ENCOUNTER → 2022-03-20 | Outpatient (CLI) | payer MEDICARE, MEDICAID ==
[~2022-03-20] MED LIST changes: -BUPIVACAINE HCL 0.25% 10ML VIAL As Ordered ONE; -BUPIVACAINE HCL 0.25% 30ML VIAL As Ordered ONE; +METHACHOLINE KIT (J7674) INH ONE; -TRIAMCINOLONE ACETONIDE SUSP 40 MG/ML VIAL (J3301) As Ordered ONE; +ZONI50CA11 PO; -diazePAM 5MG TABLET As Ordered ONE; -oxyCODONE 5MG TAB As Ordered ONE
== END ==
LOC: M CARPUL 03-19 09:13
PROVIDERS: ATTEND Internal Medicine Pulmonary Disease
DX: R06.02 Shortness of breath (principal)
CPT/HCPCS: 94070; 95070; J7674

== ENCOUNTER → 2022-03-20 | Outpatient (CLI) | payer MEDICARE, MEDICAID ==
[~2022-03-20] MED LIST changes: -METHACHOLINE KIT (J7674) INH ONE
== END ==
LOC: M PAIN 10:00
PROVIDERS: ATTEND Nurse Practitioner Family
DX: M46.1 Sacroiliitis, not elsewhere classified (principal); G89.29 Other chronic pain; G47.33 Obstructive sleep apnea (adult) (pediatric); Z86.73 Personal history of transient ischemic attack (TIA), and cerebral infarction without residual deficits; Z98.84 Bariatric surgery status; Z86.59 Personal history of other mental and behavioral disorders; Z79.82 Long term (current) use of aspirin; Z79.899 Other long term (current) drug therapy

== ENCOUNTER 2022-03-22 18:50 | Emergency (ER) | payer MEDICARE, MEDICAID ==
[~2022-03-22] VITALS: Ht 160 cm; Wt 104.5 kg
[~2022-03-22 18:50] MED LIST changes: -ZONI50CA11 PO
[2022-03-22 19:06] VITALS: BP 122/72
[2022-03-22] MEDS ORDERED: ZONI50CA11 PO (19:06)
[2022-03-22 21:14] LABS: BASO # 0.1 10^3/uL (0.0-0.2); BASO % 0.7 % (0.0-1.0); EOS # 0.2 10^3/uL (0.0-0.5); EOS % 2.1 % (0.0-3.0); HEMATOCRIT 41.7 % (36.0-47.0); HEMOGLOBIN 13.2 g/dl (12.0-15.5); LYMPH # 2.4 10^3/uL (1.5-5.0); LYMPH % 31.6 % (24.0-44.0); MEAN CORPUSCULAR HEMOGLOBIN 27.9 pg (27.0-33.0); MEAN CORPUSCULAR HGB CONC 31.7 g/dl (32.0-36.5); MEAN CORPUSCULAR VOLUME 88.2 fl (80.0-96.0); MONO # 0.6 10^3/uL (0.0-0.8); MONO % 7.3 % (2.0-8.0); NEUTROPHILS # 4.4 10^3/uL (1.5-8.5); NEUTROPHILS % 57.9 % (36.0-66.0); PLATELET COUNT, AUTOMATED 250 10^3/uL (150-450); RED BLOOD COUNT 4.73 10^6/uL (4.00-5.40); WHITE BLOOD COUNT 7.6 10^3/uL (4.0-10.0)
[2022-03-22 21:32] LABS: ALBUMIN 4.1 GM/DL (3.2-5.2); ALT/SGPT 31 U/L (12-78); BILIRUBIN,DIRECT < 0.1 MG/DL (0.0-0.2); BILIRUBIN,TOTAL 0.5 MG/DL (0.2-1.0); BLOOD UREA NITROGEN 15 MG/DL (7-18); CALCIUM LEVEL 9.6 MG/DL (8.8-10.2); CARBON DIOXIDE LEVEL 25 MEQ/L (21-32); CHLORIDE LEVEL 112 MEQ/L (98-107); CREATININE FOR GFR 0.69 MG/DL (0.55-1.30); GLOMERULAR FILTRATION RATE > 60.0 (>45); GLUCOSE, FASTING 95 MG/DL (70-100); LIPASE 154 U/L (73-393); POTASSIUM SERUM 4.8 MEQ/L (3.5-5.1); SODIUM LEVEL 143 MEQ/L (136-145); TOTAL PROTEIN 7.6 GM/DL (6.4-8.2)
== END 2022-03-22 23:10 | disposition left against medical advice (07) ==
LOC: M ED 18:50
DX: Z53.21 Procedure and treatment not carried out due to patient leaving prior to being seen by health care provider (principal)

== ENCOUNTER → 2022-05-06 | Outpatient (CLI) | payer MEDICARE, MEDICAID ==
[~2022-05-06] MED LIST changes: +ZONI50CA11 PO
[2022-05-06 07:41] LABS: HEMATOCRIT 37.6 % (36.0-47.0); HEMOGLOBIN 12.1 g/dl (12.0-15.5); MEAN CORPUSCULAR HEMOGLOBIN 28.3 pg (27.0-33.0); MEAN CORPUSCULAR HGB CONC 32.2 g/dl (32.0-36.5); MEAN CORPUSCULAR VOLUME 88.1 fl (80.0-96.0); PLATELET COUNT, AUTOMATED 214 10^3/uL (150-450); RED BLOOD COUNT 4.27 10^6/uL (4.00-5.40); WHITE BLOOD COUNT 6.1 10^3/uL (4.0-10.0)
[2022-05-06 08:01] LABS: HEMOGLOBIN A1c 5.7 %
[2022-05-06 08:19] LABS: ALBUMIN 3.7 GM/DL (3.2-5.2); ALT/SGPT 25 U/L (12-78); BILIRUBIN,TOTAL 0.4 MG/DL (0.2-1.0); BLOOD UREA NITROGEN 17 MG/DL (7-18); CALCIUM LEVEL 8.4 MG/DL (8.8-10.2); CARBON DIOXIDE LEVEL 25 MEQ/L (21-32); CHLORIDE LEVEL 113 MEQ/L (98-107); CHOLESTEROL LEVEL 177 MG/DL (<200); CHOLESTEROL RISK RATIO 2.765 (<5); CREATININE FOR GFR 0.63 MG/DL (0.55-1.30); GLOMERULAR FILTRATION RATE > 60.0 (>45); GLUCOSE, FASTING 103 MG/DL (70-100); HDL CHOLESTEROL 64 MG/DL (>40); IRON (FE) 59 UG/DL (50-170); LDL CHOLESTEROL 70 MG/DL (<100); NON-HDL-C 113 MG/DL; PERCENT SATURATION 15.8 % (13.2-45.0); POTASSIUM SERUM 3.8 MEQ/L (3.5-5.1); SODIUM LEVEL 143 MEQ/L (136-145); TOTAL IRON BINDING CAPACITY 374 UG/DL (250-450); TOTAL PROTEIN 6.7 GM/DL (6.4-8.2); TRIGLYCERIDES LEVEL 214 MG/DL (<150)
[2022-05-06 08:29] LABS: MALB URINE SIEMENS 19.2 MG/L; MAU/CREAT RATIO 9.5 MCG/MG (0.0-30.0)
[2022-05-06 09:56] LABS: TOTAL 25(OH) VITAMIN D 27.6 NG/ML (30.0-100.0)
[2022-05-06 09:57] LABS: VITAMIN B12 LEVEL 308 PG/ML (247-911)
[2022-05-08 06:08] LABS: INSULIN LEVEL 19.2 uIU/mL (2.6-24.9)
== END ==
LOC: M LAB 07:02
PROVIDERS: ATTEND Internal Medicine Hematology
DX: E55.9 Vitamin D deficiency, unspecified (principal); I10 Essential (primary) hypertension; E78.5 Hyperlipidemia, unspecified; E03.9 Hypothyroidism, unspecified; Z79.899 Other long term (current) drug therapy

== ENCOUNTER → 2022-05-17 | Outpatient (CLI) | payer MEDICARE, MEDICAID | LOC: M WHC 09:28 | PROVIDERS: ATTEND Internal Medicine Hematology & Oncology | DX: Z12.31 Encounter for screening mammogram for malignant neoplasm of breast (principal); Z78.0 Asymptomatic menopausal state; Z85.038 Personal history of other malignant neoplasm of large intestine ==

== ENCOUNTER → 2022-08-01 | Outpatient (CLI) | payer MEDICARE, MEDICAID | LOC: M LABSMTC 10:24 | PROVIDERS: ATTEND Anesthesiology | DX: Z01.818 Encounter for other preprocedural examination (principal); Z11.52 Encounter for screening for COVID-19 ==

== ENCOUNTER → 2022-08-06 | Outpatient (CLI) | payer MEDICARE, MEDICAID ==
[~2022-08-06] MED LIST changes: +BUPIVACAINE HCL 0.25% 30ML VIAL As Ordered ONE; +ISOVUE-M 300 61% 15ML VIAL As Ordered ONE; +LIDOCAINE 1% SDV 30ML VIAL As Ordered ONE; +TRIAMCINOLONE ACETONIDE SUSP 40 MG/ML VIAL (J3301) As Ordered ONE; +diazePAM 5MG TABLET As Ordered ONE; +oxyCODONE 5MG TAB As Ordered ONE
== END ==
LOC: M PAIN 11:00
PROVIDERS: ATTEND Anesthesiology
DX: M46.1 Sacroiliitis, not elsewhere classified (principal); G89.29 Other chronic pain; G47.33 Obstructive sleep apnea (adult) (pediatric); I10 Essential (primary) hypertension; Z98.84 Bariatric surgery status; Z86.59 Personal history of other mental and behavioral disorders; E66.01 Morbid (severe) obesity due to excess calories; Z68.41 Body mass index [BMI] 40.0-44.9, adult; Z79.82 Long term (current) use of aspirin; Z79.899 Other long term (current) drug therapy
CPT/HCPCS: G0260; J3301; Q9967

== ENCOUNTER → 2022-08-22 | Outpatient (CLI) | payer MEDICARE, MEDICAID ==
[~2022-08-22] MED LIST changes: -BUPIVACAINE HCL 0.25% 30ML VIAL As Ordered ONE; -ISOVUE-M 300 61% 15ML VIAL As Ordered ONE; -LIDOCAINE 1% SDV 30ML VIAL As Ordered ONE; -TRIAMCINOLONE ACETONIDE SUSP 40 MG/ML VIAL (J3301) As Ordered ONE; -diazePAM 5MG TABLET As Ordered ONE; -oxyCODONE 5MG TAB As Ordered ONE
[2022-08-22 10:47] LABS: BASO # 0.1 10^3/uL (0.0-0.2); BASO % 0.8 % (0.0-1.0); EOS # 0.2 10^3/uL (0.0-0.5); EOS % 2.9 % (0.0-3.0); HEMATOCRIT 38.2 % (36.0-47.0); HEMOGLOBIN 12.1 g/dl (12.0-15.5); LYMPH # 1.8 10^3/uL (1.5-5.0); MEAN CORPUSCULAR HEMOGLOBIN 28.3 pg (27.0-33.0); MEAN CORPUSCULAR HGB CONC 31.7 g/dl (32.0-36.5); MEAN CORPUSCULAR VOLUME 89.5 fl (80.0-96.0); MONO # 0.6 10^3/uL (0.0-0.8); MONO % 8.4 % (2.0-8.0); NEUTROPHILS # 4.7 10^3/uL (1.5-8.5); NEUTROPHILS % 63.2 % (36.0-66.0); PLATELET COUNT, AUTOMATED 238 10^3/uL (150-450); RED BLOOD COUNT 4.27 10^6/uL (4.00-5.40); WHITE BLOOD COUNT 7.5 10^3/uL (4.0-10.0)
[2022-08-22 11:30] LABS: ALBUMIN 3.8 GM/DL (3.2-5.2); ALT/SGPT 29 U/L (12-78); BILIRUBIN,TOTAL 0.5 MG/DL (0.2-1.0); BLOOD UREA NITROGEN 23 MG/DL (7-18); CALCIUM LEVEL 9.3 MG/DL (8.8-10.2); CARBON DIOXIDE LEVEL 27 MEQ/L (21-32); CHLORIDE LEVEL 111 MEQ/L (98-107); CREATININE FOR GFR 0.77 MG/DL (0.55-1.30); GLOMERULAR FILTRATION RATE > 60.0 (>45); GLUCOSE, FASTING 101 MG/DL (70-100); POTASSIUM SERUM 4.3 MEQ/L (3.5-5.1); SODIUM LEVEL 141 MEQ/L (136-145); TOTAL PROTEIN 7.1 GM/DL (6.4-8.2)
== END ==
LOC: M LAB 09:57
PROVIDERS: ATTEND Psychiatry & Neurology Neurology
DX: R51.9 Headache, unspecified (principal); Z79.899 Other long term (current) drug therapy

== ENCOUNTER → 2022-08-26 | Outpatient (CLI) | payer MEDICARE, MEDICAID | LOC: M PAIN 10:30 | PROVIDERS: ATTEND Nurse Practitioner Family | DX: M46.1 Sacroiliitis, not elsewhere classified (principal); G89.29 Other chronic pain; G47.33 Obstructive sleep apnea (adult) (pediatric); I10 Essential (primary) hypertension; Z86.73 Personal history of transient ischemic attack (TIA), and cerebral infarction without residual deficits; Z98.84 Bariatric surgery status; E66.01 Morbid (severe) obesity due to excess calories; Z68.41 Body mass index [BMI] 40.0-44.9, adult; Z79.82 Long term (current) use of aspirin; Z79.899 Other long term (current) drug therapy ==

== ENCOUNTER → 2022-09-05 | Outpatient (CLI) | payer MEDICARE, MEDICAID ==
[2022-09-05 12:20] LABS: HEMATOCRIT 40.9 % (36.0-47.0); HEMOGLOBIN 12.9 g/dl (12.0-15.5); MEAN CORPUSCULAR HEMOGLOBIN 28.1 pg (27.0-33.0); MEAN CORPUSCULAR HGB CONC 31.5 g/dl (32.0-36.5); MEAN CORPUSCULAR VOLUME 89.1 fl (80.0-96.0); PLATELET COUNT, AUTOMATED 256 10^3/uL (150-450); RED BLOOD COUNT 4.59 10^6/uL (4.00-5.40); WHITE BLOOD COUNT 7.5 10^3/uL (4.0-10.0)
[2022-09-05 13:51] LABS: BLOOD UREA NITROGEN 19 MG/DL (7-18); CALCIUM LEVEL 9.5 MG/DL (8.8-10.2); CARBON DIOXIDE LEVEL 23 MEQ/L (21-32); CHLORIDE LEVEL 109 MEQ/L (98-107); CREATININE FOR GFR 0.84 MG/DL (0.55-1.30); FOLATE 17.7 NG/ML; FREE T4 0.89 NG/DL (0.76-1.46); GLOMERULAR FILTRATION RATE > 60.0 (>45); GLUCOSE, FASTING 113 MG/DL (70-100); MAGNESIUM LEVEL 2.3 MG/DL (1.8-2.4); SODIUM LEVEL 140 MEQ/L (136-145); VITAMIN B12 LEVEL 343 PG/ML
== END ==
LOC: M LAB 10:14
PROVIDERS: ATTEND Physician Assistant
DX: R53.83 Other fatigue (principal)

== ENCOUNTER → 2022-10-22 | Outpatient (CLI) | payer MEDICARE, MEDICAID | LOC: M RAD 10:29 | PROVIDERS: ATTEND Physician Assistant | DX: M77.31 Calcaneal spur, right foot (principal); M79.671 Pain in right foot ==

== ENCOUNTER → 2022-10-22 | Outpatient (CLI) | payer MEDICARE, MEDICAID ==
[2022-10-22 12:28] LABS: CREATININE, URINE 108.6 MG/DL
[2022-10-22 12:29] LABS: MAU/CREAT RATIO 4.6 MCG/MG (0.0-30.0)
[2022-10-22 12:30] LABS: THYROID STIMULATING HORMONE 1.908 uIU/ML (0.55-4.78); TOTAL 25(OH) VITAMIN D 28.4 NG/ML (20.0-100.0)
[2022-10-22 12:31] LABS: C REACTIVE PROTEIN QUANTITATIV < 0.40 MG/DL (<1.0); FREE T4 1.08 NG/DL (0.89-1.76); TOTAL IRON BINDING CAPACITY 373 UG/DL (250-425)
[2022-10-22 12:32] LABS: ALBUMIN 3.8 G/DL (3.2-5.2); ALKALINE PHOSPHATASE 91 U/L (46-116); ALT/SGPT 23 U/L (7.0-40); AST/SGOT 19 U/L (<34); BILIRUBIN,TOTAL 0.6 MG/DL (0.3-1.2); BLOOD UREA NITROGEN 18 MG/DL (9-23); CALCIUM LEVEL 9.4 MG/DL (8.3-10.6); CARBON DIOXIDE LEVEL 26 MMOL/L (20-31); CHLORIDE LEVEL 108 MMOL/L (98-107); CHOLESTEROL LEVEL 183 MG/DL (<200); CHOLESTEROL RISK RATIO 2.88 (<5); CREATININE FOR GFR 0.64 MG/DL (0.55-1.30); GLOMERULAR FILTRATION RATE > 60.0 (>45); GLUCOSE, FASTING 103 MG/DL (74-106); HDL CHOLESTEROL 63.5 MG/DL (>40); LDL CHOLESTEROL 78.9 MG/DL (<100); NON-HDL-C 120 MG/DL; POTASSIUM SERUM 4.5 MMOL/L (3.5-5.1); SODIUM LEVEL 142 MMOL/L (136-145); TOTAL PROTEIN 6.9 G/DL (5.7-8.2); TRIGLYCERIDES LEVEL 203 MG/DL (<150)
[2022-10-22 12:33] LABS: IRON (FE) 83 UG/DL (50-170); PERCENT SATURATION 22.3 % (13.2-45.0)
[2022-10-22 12:34] LABS: VITAMIN B12 LEVEL 385 PG/ML (211-911)
[2022-10-22 14:16] LABS: HEMATOCRIT 39.2 % (36.0-47.0); HEMOGLOBIN 12.4 g/dl (12.0-15.5); MEAN CORPUSCULAR HEMOGLOBIN 28.3 pg (27.0-33.0); MEAN CORPUSCULAR HGB CONC 31.6 g/dl (32.0-36.5); MEAN CORPUSCULAR VOLUME 89.5 fl (80.0-96.0); PLATELET COUNT, AUTOMATED 252 10^3/uL (150-450); RED BLOOD COUNT 4.38 10^6/uL (4.00-5.40); WHITE BLOOD COUNT 6.9 10^3/uL (4.0-10.0)
[2022-10-22 17:35] LABS: HEMOGLOBIN A1c 5.7 % (4.0-6.0)
== END ==
LOC: M LAB 10:31
PROVIDERS: ATTEND Internal Medicine Hematology
DX: D50.9 Iron deficiency anemia, unspecified (principal); E78.2 Mixed hyperlipidemia; Z79.899 Other long term (current) drug therapy

== ENCOUNTER → 2022-10-22 | Outpatient (CLI) | payer MEDICARE, MEDICAID | LOC: M PAIN 09:30 | PROVIDERS: ATTEND Nurse Practitioner Family | DX: M46.1 Sacroiliitis, not elsewhere classified (principal); G89.29 Other chronic pain; G47.33 Obstructive sleep apnea (adult) (pediatric); I10 Essential (primary) hypertension; M77.31 Calcaneal spur, right foot; M79.671 Pain in right foot; D50.9 Iron deficiency anemia, unspecified; E78.2 Mixed hyperlipidemia; Z86.59 Personal history of other mental and behavioral disorders; Z86.73 Personal history of transient ischemic attack (TIA), and cerebral infarction without residual deficits; E66.01 Morbid (severe) obesity due to excess calories; Z68.41 Body mass index [BMI] 40.0-44.9, adult; Z79.82 Long term (current) use of aspirin; Z79.899 Other long term (current) drug therapy | CPT/HCPCS: 36415; 73630; 80053; 80061; 82043; 82306; 82607; 82728; 83036; 83550; 84439; 84443; 85027; 86140; G0463 ==

== ENCOUNTER → 2022-12-15 | Outpatient (CLI) | payer OTHER, MEDICAID | LOC: M LABSMTC 10:27 | PROVIDERS: ATTEND Anesthesiology | DX: Z01.812 Encounter for preprocedural laboratory examination (principal); Z11.52 Encounter for screening for COVID-19 ==

== ENCOUNTER → 2022-12-19 | Outpatient (CLI) | payer OTHER, MEDICAID ==
[~2022-12-19] MED LIST changes: +BUPIVACAINE HCL 0.25% 30ML VIAL As Ordered ONE; +ISOVUE-M 300 61% 15ML VIAL As Ordered ONE; +LIDOCAINE 1% SDV 30ML VIAL As Ordered ONE; +TRIAMCINOLONE ACETONIDE SUSP 40MG/ML 1ML VIAL As Ordered ONE; +diazePAM 5MG TABLET As Ordered ONE; +oxyCODONE 5MG TAB As Ordered ONE
== END ==
LOC: M PAIN 10:00
PROVIDERS: ATTEND Anesthesiology
DX: M46.1 Sacroiliitis, not elsewhere classified (principal); G89.29 Other chronic pain; G47.33 Obstructive sleep apnea (adult) (pediatric); I10 Essential (primary) hypertension; R73.03 Prediabetes; Z86.73 Personal history of transient ischemic attack (TIA), and cerebral infarction without residual deficits; Z98.84 Bariatric surgery status; E66.01 Morbid (severe) obesity due to excess calories; Z68.44 Body mass index [BMI] 60.0-69.9, adult; Z79.82 Long term (current) use of aspirin; Z79.899 Other long term (current) drug therapy
CPT/HCPCS: G0260; Q9967

== ENCOUNTER → 2023-03-19 | Outpatient (CLI) | payer OTHER, MEDICAID ==
[~2023-03-19] MED LIST changes: -BUPIVACAINE HCL 0.25% 30ML VIAL As Ordered ONE; -ISOVUE-M 300 61% 15ML VIAL As Ordered ONE; -LIDOCAINE 1% SDV 30ML VIAL As Ordered ONE; -TRIAMCINOLONE ACETONIDE SUSP 40MG/ML 1ML VIAL As Ordered ONE; -diazePAM 5MG TABLET As Ordered ONE; -oxyCODONE 5MG TAB As Ordered ONE
[2023-03-19 11:59] LABS: HEMATOCRIT 39.9 % (36.0-47.0); HEMOGLOBIN 12.9 g/dl (12.0-15.5); MEAN CORPUSCULAR HEMOGLOBIN 28.4 pg (27.0-33.0); MEAN CORPUSCULAR HGB CONC 32.3 g/dl (32.0-36.5); MEAN CORPUSCULAR VOLUME 87.7 fl (80.0-96.0); PLATELET COUNT, AUTOMATED 229 10^3/uL (150-450); RED BLOOD COUNT 4.55 10^6/uL (4.00-5.40); WHITE BLOOD COUNT 6.3 10^3/uL (4.0-10.0)
[2023-03-19 12:29] LABS: CREATININE, URINE 228.4 MG/DL; MAU/CREAT RATIO 6.1 MCG/MG (0.0-30.0)
[2023-03-19 12:32] LABS: ALBUMIN 3.8 G/DL (3.2-5.2); ALKALINE PHOSPHATASE 89 U/L (46-116); ALT/SGPT 19 U/L (7.0-40); AST/SGOT < 8 U/L (<34); BILIRUBIN,TOTAL 0.6 MG/DL (0.3-1.2); BLOOD UREA NITROGEN 17 MG/DL (9-23); C REACTIVE PROTEIN QUANTITATIV < 0.40 MG/DL (<1.0); CALCIUM LEVEL 8.7 MG/DL (8.3-10.6); CARBON DIOXIDE LEVEL 24 MMOL/L (20-31); CHLORIDE LEVEL 112 MMOL/L (98-107); CHOLESTEROL LEVEL 173 MG/DL (<200); CHOLESTEROL RISK RATIO 2.86 (<5); GLOMERULAR FILTRATION RATE > 60.0 (>45); GLUCOSE, FASTING 106 MG/DL (74-106); HDL CHOLESTEROL 60.3 MG/DL (>40); LDL CHOLESTEROL 70.9 MG/DL (<100); NON-HDL-C 112.7 MG/DL; SODIUM LEVEL 144 MMOL/L (136-145); TOTAL PROTEIN 6.5 G/DL (5.7-8.2); TRIGLYCERIDES LEVEL 209 MG/DL (<150)
[2023-03-19 12:33] LABS: FREE T4 0.84 NG/DL (0.89-1.76); THYROID STIMULATING HORMONE 0.927 uIU/ML (0.55-4.78)
[2023-03-19 12:34] LABS: TOTAL 25(OH) VITAMIN D 44.6 NG/ML (20.0-100.0); VITAMIN B12 LEVEL 373 PG/ML (211-911)
[2023-03-19 13:00] LABS: HEMOGLOBIN A1c 5.9 % (4.0-6.0)
== END ==
LOC: M LAB 11:01
PROVIDERS: ATTEND Internal Medicine Hematology
DX: E66.2 Morbid (severe) obesity with alveolar hypoventilation (principal); Z79.899 Other long term (current) drug therapy

== ENCOUNTER → 2023-04-17 | Outpatient (CLI) | payer OTHER, MEDICAID ==
[~2023-04-17] MED LIST changes: -K-TA10TA2 PO; +POTA-165 PO
== END ==
LOC: M PAIN 14:30
PROVIDERS: ATTEND Nurse Practitioner Family
DX: M46.1 Sacroiliitis, not elsewhere classified (principal); I10 Essential (primary) hypertension; E66.9 Obesity, unspecified; Z98.84 Bariatric surgery status; M51.16 Intervertebral disc disorders with radiculopathy, lumbar region; G47.33 Obstructive sleep apnea (adult) (pediatric); R73.03 Prediabetes; G57.91 Unspecified mononeuropathy of right lower limb; Z79.82 Long term (current) use of aspirin; Z79.899 Other long term (current) drug therapy; Z79.85 Long-term (current) use of injectable non-insulin antidiabetic drugs; Z68.41 Body mass index [BMI] 40.0-44.9, adult

== ENCOUNTER → 2023-05-21 | Outpatient (CLI) | payer OTHER, MEDICAID ==
[~2023-05-21] MED LIST changes: -ROPI1TAB3 PO; +ROPI1TAB73 PO
== END ==
LOC: M WHC 09:12
PROVIDERS: ATTEND Internal Medicine Hematology
DX: Z12.31 Encounter for screening mammogram for malignant neoplasm of breast (principal); D24.9 Benign neoplasm of unspecified breast

== ENCOUNTER → 2023-06-10 | Outpatient (CLI) | payer OTHER, MEDICAID ==
[~2023-06-10] MED LIST changes: +ISOVUE-M 300 61% 15ML VIAL As Ordered ONE; +LIDOCAINE 1% SDV 30ML VIAL As Ordered ONE; +TRIAMCINOLONE ACETONIDE SUSP 40MG/ML 1ML VIAL As Ordered ONE; +diazePAM 5MG TABLET As Ordered ONE; +oxyCODONE 5MG TAB As Ordered ONE
== END ==
LOC: M PAIN 08:00
PROVIDERS: ATTEND Anesthesiology
DX: M46.1 Sacroiliitis, not elsewhere classified (principal); I10 Essential (primary) hypertension; E66.9 Obesity, unspecified; D50.9 Iron deficiency anemia, unspecified; F32.A Depression, unspecified; F41.9 Anxiety disorder, unspecified; G47.33 Obstructive sleep apnea (adult) (pediatric); G62.9 Polyneuropathy, unspecified; R73.03 Prediabetes; Z79.82 Long term (current) use of aspirin; Z79.85 Long-term (current) use of injectable non-insulin antidiabetic drugs; Z79.899 Other long term (current) drug therapy; Z68.41 Body mass index [BMI] 40.0-44.9, adult
CPT/HCPCS: G0260; J0665; J3301; Q9967

== ENCOUNTER → 2023-10-15 | Outpatient (CLI) | payer OTHER, MEDICAID ==
[~2023-10-15] MED LIST changes: -ISOVUE-M 300 61% 15ML VIAL As Ordered ONE; -LIDOCAINE 1% SDV 30ML VIAL As Ordered ONE; +SEMA0.257; +SEMA0.257 SQ; -TRIAMCINOLONE ACETONIDE SUSP 40MG/ML 1ML VIAL As Ordered ONE; -diazePAM 5MG TABLET As Ordered ONE; -oxyCODONE 5MG TAB As Ordered ONE
[2023-10-15 11:56] LABS: HEMATOCRIT 39.4 % (36.0-47.0); HEMOGLOBIN 12.7 g/dl (12.0-15.5); MEAN CORPUSCULAR HEMOGLOBIN 28.9 pg (27.0-33.0); MEAN CORPUSCULAR HGB CONC 32.2 g/dl (32.0-36.5); MEAN CORPUSCULAR VOLUME 89.5 fl (80.0-96.0); PLATELET COUNT, AUTOMATED 234 10^3/uL (150-450); WHITE BLOOD COUNT 6.2 10^3/uL (4.0-10.0)
[2023-10-15 12:06] LABS: ERYTHROCYTE SEDIMENTATION RATE 18 mm/hr (0-30)
[2023-10-15 12:17] LABS: HEMOGLOBIN A1c 5.4 % (4.0-6.0)
[2023-10-15 12:19] LABS: CREATININE, URINE 193.7 MG/DL; MAU/CREAT RATIO 5.1 MCG/MG (0.0-30.0)
[2023-10-15 12:20] LABS: C REACTIVE PROTEIN QUANTITATIV < 0.40 MG/DL (<1.0)
[2023-10-15 12:22] LABS: ALKALINE PHOSPHATASE 100 U/L (46-116); ALT/SGPT 22 U/L (7.0-40); AST/SGOT 16 U/L (<34); BILIRUBIN,TOTAL 0.6 MG/DL (0.3-1.2); BLOOD UREA NITROGEN 15 MG/DL (9-23); CALCIUM LEVEL 9.3 MG/DL (8.3-10.6); CARBON DIOXIDE LEVEL 26 MMOL/L (20-31); CHLORIDE LEVEL 110 MMOL/L (98-107); CHOLESTEROL LEVEL 164 MG/DL (<200); CHOLESTEROL RISK RATIO 2.65 (<5); CREATININE FOR GFR 0.65 MG/DL (0.55-1.30); GLOMERULAR FILTRATION RATE > 60.0 (>45); GLUCOSE, FASTING 92 MG/DL (74-106); HDL CHOLESTEROL 61.7 MG/DL (>40); LDL CHOLESTEROL 67.1 MG/DL (<100); NON-HDL-C 102.3 MG/DL; POTASSIUM SERUM 4.2 MMOL/L (3.5-5.1); SODIUM LEVEL 143 MMOL/L (136-145); TOTAL PROTEIN 6.8 G/DL (5.7-8.2); TRIGLYCERIDES LEVEL 176 MG/DL (<150)
[2023-10-15 12:23] LABS: FREE T4 0.88 NG/DL (0.89-1.76); RHEUMATOID FACTOR QUANT < 3.5 IU/ML (<14); THYROID STIMULATING HORMONE 2.146 uIU/ML (0.55-4.78)
[2023-10-15 12:24] LABS: VITAMIN B12 LEVEL 649 PG/ML (211-911)
[2023-10-16 23:07] LABS: ANTINUCLEAR ANTIBODIES DIRECT Negative (Negative); CYCLIC CITRULLINATED PEPTIDE 5 units (0-19)
== END ==
LOC: M LAB 10:52
PROVIDERS: ATTEND Internal Medicine Hematology
DX: R73.03 Prediabetes (principal); M19.90 Unspecified osteoarthritis, unspecified site; Z79.899 Other long term (current) drug therapy

== ENCOUNTER → 2023-12-31 | Outpatient (CLI) | payer OTHER, MEDICAID | LOC: M PAIN 15:30 | PROVIDERS: ATTEND Anesthesiology | DX: M53.3 Sacrococcygeal disorders, not elsewhere classified (principal); I10 Essential (primary) hypertension; R73.09 Other abnormal glucose; Z79.02 Long term (current) use of antithrombotics/antiplatelets; Z79.82 Long term (current) use of aspirin; Z79.84 Long term (current) use of oral hypoglycemic drugs; Z79.891 Long term (current) use of opiate analgesic ==

== ENCOUNTER → 2024-03-22 | Outpatient (CLI) | payer OTHER, MEDICAID ==
[~2024-03-22] MED LIST changes: +DOXY-323 PO; -DOXY-443 PO
[2024-03-22 14:09] LABS: BASO % 0.4 % (0.0-1.0); EOS # 0.1 10^3/uL (0.0-0.5); EOS % 1.4 % (0.0-3.0); HEMATOCRIT 37.6 % (36.0-47.0); HEMOGLOBIN 12.3 g/dl (12.0-15.5); LYMPH # 1.8 10^3/uL (1.5-5.0); LYMPH % 24.1 % (24.0-44.0); MEAN CORPUSCULAR HEMOGLOBIN 29.1 pg (27.0-33.0); MEAN CORPUSCULAR HGB CONC 32.7 g/dl (32.0-36.5); MEAN CORPUSCULAR VOLUME 88.9 fl (80.0-96.0); MONO # 0.4 10^3/uL (0.0-0.8); MONO % 5.5 % (2.0-8.0); NEUTROPHILS % 68.2 % (36.0-66.0); PLATELET COUNT, AUTOMATED 228 10^3/uL (150-450); RED BLOOD COUNT 4.23 10^6/uL (4.00-5.40); WHITE BLOOD COUNT 7.3 10^3/uL (4.0-10.0)
[2024-03-22 14:38] LABS: CREATININE, URINE 218.4 MG/DL; MAU/CREAT RATIO 3.2 MCG/MG (0.0-30.0)
[2024-03-22 14:38] LABS: C REACTIVE PROTEIN QUANTITATIV < 0.40 MG/DL (<1.0)
[2024-03-22 14:40] LABS: ALBUMIN 3.8 G/DL (3.2-5.2); ALKALINE PHOSPHATASE 110 U/L (46-116); ALT/SGPT 38 U/L (7.0-40); AST/SGOT 26 U/L (<34); BILIRUBIN,TOTAL 0.4 MG/DL (0.3-1.2); BLOOD UREA NITROGEN 15 MG/DL (9-23); CALCIUM LEVEL 9.4 MG/DL (8.3-10.6); CARBON DIOXIDE LEVEL 24 MMOL/L (20-31); CHLORIDE LEVEL 110 MMOL/L (98-107); CHOLESTEROL LEVEL 150 MG/DL (<200); CHOLESTEROL RISK RATIO 2.91 (<5); CREATININE FOR GFR 0.74 MG/DL (0.55-1.30); GLOMERULAR FILTRATION RATE > 60.0 (>45); GLUCOSE, FASTING 97 MG/DL (74-106); HDL CHOLESTEROL 51.4 MG/DL (>40); LDL CHOLESTEROL 50.2 MG/DL (<100); NON-HDL-C 98.6 MG/DL; POTASSIUM SERUM 3.9 MMOL/L (3.5-5.1); SODIUM LEVEL 142 MMOL/L (136-145); TOTAL PROTEIN 6.5 G/DL (5.7-8.2); TRIGLYCERIDES LEVEL 242 MG/DL (<150)
[2024-03-22 14:41] LABS: VITAMIN B12 LEVEL 695 PG/ML (211-911)
[2024-03-22 14:42] LABS: THYROID STIMULATING HORMONE 1.386 uIU/ML (0.55-4.78); TOTAL 25(OH) VITAMIN D 31.7 NG/ML (20.0-100.0)
[2024-03-22 15:11] LABS: HEMOGLOBIN A1c 5.2 % (4.0-6.0)
== END ==
LOC: M LAB 13:05
PROVIDERS: ATTEND Internal Medicine Hematology
DX: E11.9 Type 2 diabetes mellitus without complications (principal); Z79.82 Long term (current) use of aspirin

== ENCOUNTER → 2024-05-31 | Outpatient (CLI) | payer OTHER, MEDICAID ==
[~2024-05-31] MED LIST changes: +SEMA1PEN2; +VRAY3CAP
[2024-05-31 14:33] LABS: BASO # 0.1 10^3/uL (0.0-0.2); BASO % 0.7 % (0.0-1.0); EOS # 0.1 10^3/uL (0.0-0.5); EOS % 0.9 % (0.0-3.0); HEMATOCRIT 41.4 % (36.0-47.0); HEMOGLOBIN 13.6 g/dl (12.0-15.5); LYMPH # 1.7 10^3/uL (1.5-5.0); LYMPH % 23.8 % (24.0-44.0); MEAN CORPUSCULAR HEMOGLOBIN 29.1 pg (27.0-33.0); MEAN CORPUSCULAR HGB CONC 32.9 g/dl (32.0-36.5); MEAN CORPUSCULAR VOLUME 88.5 fl (80.0-96.0); MONO # 0.4 10^3/uL (0.0-0.8); MONO % 5.5 % (2.0-8.0); NEUTROPHILS # 4.8 10^3/uL (1.5-8.5); NEUTROPHILS % 68.7 % (36.0-66.0); PLATELET COUNT, AUTOMATED 221 10^3/uL (150-450); RED BLOOD COUNT 4.68 10^6/uL (4.00-5.40); WHITE BLOOD COUNT 6.9 10^3/uL (4.0-10.0)
[2024-05-31 14:40] LABS: ERYTHROCYTE SEDIMENTATION RATE 13 mm/hr (0-30)
[2024-05-31 15:00] LABS: CREATININE, URINE 189.2 MG/DL
[2024-05-31 15:01] LABS: MAU/CREAT RATIO 5.2 MCG/MG (0.0-30.0)
[2024-05-31 15:03] LABS: C REACTIVE PROTEIN QUANTITATIV < 0.40 MG/DL (<1.0)
[2024-05-31 15:04] LABS: VITAMIN B12 LEVEL 496 PG/ML (211-911)
[2024-05-31 15:05] LABS: ALBUMIN 4.2 G/DL (3.2-5.2); ALKALINE PHOSPHATASE 115 U/L (46-116); ALT/SGPT 39 U/L (7.0-40); AST/SGOT 18 U/L (<34); BILIRUBIN,TOTAL 0.6 MG/DL (0.3-1.2); BLOOD UREA NITROGEN 16 MG/DL (9-23); CALCIUM LEVEL 9.6 MG/DL (8.3-10.6); CARBON DIOXIDE LEVEL 26 MMOL/L (20-31); CHLORIDE LEVEL 110 MMOL/L (98-107); CHOLESTEROL LEVEL 167 MG/DL (<200); CHOLESTEROL RISK RATIO 2.97 (<5); CREATININE FOR GFR 0.73 MG/DL (0.55-1.30); FREE T4 1.02 NG/DL (0.89-1.76); GLOMERULAR FILTRATION RATE > 60.0 (>45); GLUCOSE, FASTING 87 MG/DL (74-106); HDL CHOLESTEROL 56.2 MG/DL (>40); LDL CHOLESTEROL 66.4 MG/DL (<100); NON-HDL-C 110.8 MG/DL; POTASSIUM SERUM 4.6 MMOL/L (3.5-5.1); SODIUM LEVEL 143 MMOL/L (136-145); THYROID STIMULATING HORMONE 1.733 uIU/ML (0.55-4.78); TOTAL PROTEIN 6.9 G/DL (5.7-8.2); TRIGLYCERIDES LEVEL 222 MG/DL (<150)
[2024-05-31 15:06] LABS: TOTAL 25(OH) VITAMIN D 34.6 NG/ML (20.0-100.0)
[2024-05-31 15:17] LABS: HEMOGLOBIN A1c 5.5 % (4.0-6.0)
[2024-05-31 16:21] LABS: RHEUMATOID FACTOR QUANT < 3.5 IU/ML (<14)
[2024-05-31 16:29] LABS: URIC ACID 4.6 MG/DL (3.1-7.8)
[2024-06-01 12:57] LABS: CYCLIC CITRULLINATED PEPTIDE < 16 UNITS (<20)
[2024-06-01 15:12] LABS: ANA SCREEN, IFA NEGATIVE (NEGATIVE)
== END ==
LOC: M LAB 12:17
PROVIDERS: ATTEND Internal Medicine Hematology
DX: M47.817 Spondylosis without myelopathy or radiculopathy, lumbosacral region (principal); Z13.1 Encounter for screening for diabetes mellitus; Z79.899 Other long term (current) drug therapy

== ENCOUNTER → 2024-06-28 | Outpatient (CLI) | payer OTHER, MEDICAID | LOC: M WHC 13:01 | PROVIDERS: ATTEND Internal Medicine Hematology | DX: Z12.31 Encounter for screening mammogram for malignant neoplasm of breast (principal) ==

== ENCOUNTER → 2024-06-30 | Outpatient (CLI) | payer OTHER, MEDICAID | LOC: M PAIN 11:00 | PROVIDERS: ATTEND Anesthesiology | DX: M25.561 Pain in right knee (principal); M25.562 Pain in left knee; I10 Essential (primary) hypertension; F33.1 Major depressive disorder, recurrent, moderate; F41.8 Other specified anxiety disorders; G47.33 Obstructive sleep apnea (adult) (pediatric); E78.5 Hyperlipidemia, unspecified; R73.03 Prediabetes; E66.9 Obesity, unspecified; Z68.37 Body mass index [BMI] 37.0-37.9, adult; Z98.84 Bariatric surgery status; Z79.82 Long term (current) use of aspirin; Z79.84 Long term (current) use of oral hypoglycemic drugs; Z79.899 Other long term (current) drug therapy | CPT/HCPCS: 90832; G0463 ==

== ENCOUNTER → 2024-07-19 | Outpatient (CLI) | payer OTHER, MEDICAID | LOC: M PLAIMG 13:16 | PROVIDERS: ATTEND Anesthesiology | DX: M25.562 Pain in left knee (principal); M25.561 Pain in right knee; M25.461 Effusion, right knee; M71.21 Synovial cyst of popliteal space [Baker], right knee; M17.11 Unilateral primary osteoarthritis, right knee; M71.22 Synovial cyst of popliteal space [Baker], left knee; M25.462 Effusion, left knee; M11.262 Other chondrocalcinosis, left knee ==

== ENCOUNTER → 2024-10-20 | Outpatient (CLI) | payer OTHER, MEDICAID ==
[~2024-10-20] MED LIST changes: -DOXY-323 PO; +DOXY-441 PO; +GABA-1172 PO; -GABA-282 PO; +ROSU10TA61; +TIRZ7.5P; +TRAZ-252
== END ==
LOC: M PAIN 14:00
PROVIDERS: ATTEND Anesthesiology
DX: M54.50 Low back pain, unspecified (principal); M25.561 Pain in right knee; M25.562 Pain in left knee; G89.29 Other chronic pain; I10 Essential (primary) hypertension; F32.A Depression, unspecified; F41.9 Anxiety disorder, unspecified; G47.33 Obstructive sleep apnea (adult) (pediatric); E78.5 Hyperlipidemia, unspecified; R73.03 Prediabetes; G62.9 Polyneuropathy, unspecified; Z79.82 Long term (current) use of aspirin; Z79.899 Other long term (current) drug therapy

== ENCOUNTER → 2025-03-14 | Outpatient (CLI) | payer MEDICARE, MEDICAID ==
[2025-03-14 12:06] LABS: BASO % 0.6 % (0.0-1.0); EOS # 0.1 10^3/uL (0.0-0.5); EOS % 1.4 % (0.0-3.0); HEMATOCRIT 40.9 % (36.0-47.0); HEMOGLOBIN 13.3 g/dl (12.0-15.5); LYMPH # 1.9 10^3/uL (1.5-5.0); LYMPH % 29.9 % (24.0-44.0); MEAN CORPUSCULAR HGB CONC 32.5 g/dl (32.0-36.5); MEAN CORPUSCULAR VOLUME 89.1 fl (80.0-96.0); MONO # 0.4 10^3/uL (0.0-0.8); MONO % 6.1 % (2.0-8.0); NEUTROPHILS # 3.9 10^3/uL (1.5-8.5); NEUTROPHILS % 61.8 % (36.0-66.0); PLATELET COUNT, AUTOMATED 230 10^3/uL (150-450); RED BLOOD COUNT 4.59 10^6/uL (4.00-5.40); WHITE BLOOD COUNT 6.3 10^3/uL (4.0-10.0)
[2025-03-14 12:29] LABS: CHOLESTEROL RISK RATIO 3.29 (<5); CREATININE, URINE 174.7 MG/DL; HDL CHOLESTEROL 65.5 MG/DL (>40); LDL CHOLESTEROL 109.7 MG/DL (<100); MAU/CREAT RATIO 2.8 MCG/MG (0.0-30.0); NON-HDL-C 150.5 MG/DL
== END ==
LOC: M LAB 11:30
PROVIDERS: ATTEND Student in an Organized Health Care Education/Training Program
DX: E55.9 Vitamin D deficiency, unspecified (principal); E78.2 Mixed hyperlipidemia; I10 Essential (primary) hypertension; Z76.89 Persons encountering health services in other specified circumstances

== ENCOUNTER → 2025-06-29 | Outpatient (CLI) | payer MEDICARE, MEDICAID ==
[~2025-06-29] MED LIST changes: -EQL50TAB2 PO; +VITA1TAB82 PO
== END ==
LOC: M WHC 12:50
PROVIDERS: ATTEND Student in an Organized Health Care Education/Training Program
DX: Z12.31 Encounter for screening mammogram for malignant neoplasm of breast (principal); R92.313 Mammographic fatty tissue density, bilateral breasts

== ENCOUNTER → 2025-09-13 | Outpatient (CLI) | payer MEDICARE, MEDICAID ==
[~2025-09-13] MED LIST changes: -IBUP-1022 PO; +IBUP600T42 PO; -ROSU10TA61; +ROSU10TA90
[2025-09-13 14:26] LABS: BASO # 0.0 10^3/uL (0.0-0.2); BASO % 0.6 % (0.0-1.0); EOS # 0.1 10^3/uL (0.0-0.5); EOS % 0.7 % (0.0-3.0); LYMPH # 2.3 10^3/uL (1.5-5.0); LYMPH % 31.5 % (24.0-44.0); MONO # 0.4 10^3/uL (0.0-0.8); MONO % 5.8 % (2.0-8.0); NEUTROPHILS # 4.4 10^3/uL (1.5-8.5); NEUTROPHILS % 61.1 % (36.0-66.0); PLATELET COUNT, AUTOMATED 241 10^3/uL (150-450)
[2025-09-13 15:20] LABS: ALT/SGPT 24 U/L (7.0-40); AST/SGOT 24 U/L (<34); CALCIUM LEVEL 9.7 MG/DL (8.3-10.6); CARBON DIOXIDE LEVEL 26 MMOL/L (20-31); CHLORIDE LEVEL 108 MMOL/L (98-107); CREATININE FOR GFR 0.70 MG/DL (0.55-1.30); GLOMERULAR FILTRATION RATE > 90.0 (>45); POTASSIUM SERUM 4.2 MMOL/L (3.5-5.1); RHEUMATOID FACTOR QUANT 5.0 IU/ML (<14); SODIUM LEVEL 145 MMOL/L (136-145)
[2025-09-13 15:21] LABS: TOTAL 25(OH) VITAMIN D 22.8 NG/ML (20.0-100.0)
== END ==
LOC: M LAB 13:28
PROVIDERS: ATTEND Psychiatry & Neurology Neurology
DX: R51.9 Headache, unspecified (principal); Z79.899 Other long term (current) drug therapy

== ENCOUNTER → 2025-10-25 | Outpatient (CLI) | payer MEDICARE, MEDICAID | LOC: M PLAIMG 09:23 | PROVIDERS: ATTEND Pain Medicine Interventional Pain Medicine | DX: M47.26 Other spondylosis with radiculopathy, lumbar region (principal); M47.817 Spondylosis without myelopathy or radiculopathy, lumbosacral region; M48.061 Spinal stenosis, lumbar region without neurogenic claudication ==